=== PATIENT | male | born 1960 | race African-American/Black ===

== ENCOUNTER 2018-05-16 23:32 | Inpatient (IN) | payer OTHER ==
[~2018-05-16] VITALS: Ht 162.6 cm; Wt 57.3 kg
--- OUTSIDE RECORDS SUMMARY | 2018-05-16 23:38 | XMS REPORT | Summary of Care ---
Author Author [facility] Organization [facility] Address Unknown Phone Unavailable Encounter HQ Sara(FIN) [id number] Date(s): 11/01/15 - 11/06/15 [id number] [place] [address]- Discharge Disposition: Long Term Facility Attending Physician: Jerrell Frausto MD Admitting Physician: Jerrell Frausto MD Vital Signs 1 2 3 Most recent to oldest [Reference Range]: 162.56 cm (11/01/15 10:23 PM) Height 97.6 DegF (11/06/15 4:00 PM) 97.3 DegF (11/06/15 12:00 PM) 97.3 DegF (11/06/15 8:00 AM) Temperature Oral [96.4-99.1 DegF] 138/78 mmHg (11/06/15 10:00 PM) 178/94 mmHg *HI* (11/06/15 4:00 PM) 165/88 mmHg *HI* (11/06/15 12:00 PM) Blood Pressure [90-140/60-90 mmHg] 18 BRMIN (11/06/15 4:00 PM) 18 BRMIN (11/06/15 12:00 PM) 18 BRMIN (11/06/15 8:00 AM) Respiratory Rate [14-20 BRMIN] 81 bpm (11/06/15 10:00 PM) 80 bpm (11/06/15 4:00 PM) 69 bpm (11/06/15 12:00 PM) Peripheral Pulse Rate [60-100 bpm] 79.6 kg (11/01/15 10:23 PM) 77.273 kg (11/01/15 5:24 PM) Weight 30.12 m2 (11/01/15 10:23 PM) Body Mass Index Problem List Condition Effective Dates Status Health Status Informant Asthma(Confirmed) Resolved Bipolar(Confirmed) Active COPD(Confirmed) Active Diabetes Active mellitus(Confirmed) ESRD (end stage Active renal disease)(Confirmed) HTN - Active Hypertension(Confirm ed) Schizophrenia(Confir Active med) Allergies, Adverse Reactions, Alerts Substance Reaction Severity Status aspirin Active Medications albumin human 25% intravenous solution 12.5 gm, 50 mL, Route: IV, Drug form: INJ, PRN, Dosing Weight 79.6, kg, PRN Hypo tension, Start date: 11/06/15 16:18:00 CDT, Duration: 30 day, Stop date: 6 16:18:00 CDT, May give up to 2 doses during each dialysis Notes: LOT#: Mfg: WASTE: F/P - Red; E -Red (Same a s: Albuminar)"blood product derivative" Start Date: 11/06/15 Stop Date: 11/06/15 Status: Discontinued amLODIPine 10 mg, 2 tab, Route: PO, Drug form: TAB, Daily, Dosing Weight 79.6, kg, Start da te: 11/02/15 9:00:00 CDT, Duration: 30 day, Stop date: 12/01/15 9:00:00 CDT Notes: (Same as: Norvasc) Start Date: 11/02/15 Stop Date: 11/06/15 Status: Discontinued BD Normal Saline Flush 10 mL, Route: IVP, Drug Form: INJ, PRN, PRN Line Flush, Start date: 11/02/15 2:1 8:00 CDT, Duration: 30 day, Stop date: 12/02/15 2:17:00 CDT Notes: (Same as: BD Posiflush) Start Date: 11/02/15 Stop Date: 11/06/15 Status: Discontinued BD Normal Saline Flush 5 mL, Route: IVP, Drug Form: INJ, PRN, PRN Line Flush, Start date: 11/02/15 2:18 :00 CDT, Duration: 30 day, Stop date: 12/02/15 2:17:00 CDT Notes: (Same as: BD Posiflush) Start Date: 11/02/15 Stop Date: 11/06/15 Status: Discontinued carvedilol 3.125 mg, 1 tab, Route: PO, Drug form: TAB, Q12H, Dosing Weight 79.6, kg, Start date: 11/02/15 9:00:00 CDT, Duration: 30 day, Stop date: 12/01/15 21:00:00 CDT Notes: Give with food. (Same As: Coreg) Start Date: 11/02/15 Stop Date: 11/06/15 Status: Discontinued cloNIDine 0.1 mg oral tablet 0.1 mg, 1 tab, Route: PO, Drug form: TAB, TID, Dosing Weight 79.6, kg, Start adrian e: 11/02/15 9:00:00 CDT, Duration: 30 day, Stop date: 12/01/15 17:00:00 CDT Notes: (Same As: Catapres) Start Date: 11/02/15 Stop Date: 11/06/15 Status: Discontinued Colace 100 mg oral capsule 100 mg, 1 cap, Route: PO, Drug form: CAP, BID, Dosing Weight 79.6, kg, Start adrian e: 11/05/15 17:00:00 CDT, Duration: 30 day, Stop date: 12/05/15 9:00:00 CDT Notes: (Same as: Colace) (Do Not Crush) Start Date: 11/05/15 Stop Date: 11/06/15 Status: Discontinued Dextrose 50% Syringe 12.5 gm, 25 mL, Route: IVP, Drug Form: INJ, Dosing Weight 79.6, kg, PRN, PRN Blo od Glucose Results, Start date: 11/02/15 9:55:00 CDT, Duration: 30 day, Stop adrian e: 12/02/15 9:54:00 CDT Start Date: 11/02/15 Stop Date: 11/06/15 Status: Discontinued Dextrose 50% Syringe 25 gm, 50 mL, Route: IVP, Drug Form: INJ, Dosing Weight 79.6, kg, PRN, PRN Blood Glucose Results, Start date: 11/02/15 9:55:00 CDT, Duration: 30 day, Stop date: 12/02/15 9:54:00 CDT Start Date: 11/02/15 Stop Date: 11/06/15 Status: Discontinued Dilaudid 4 mg, 1 tab, Route: PO, Drug form: TAB, Q6H, Dosing Weight 79.6, kg, PRN Pain Sc ore 4-6, Start date: 11/02/15 1:56:00 CDT, Duration: 3 day, Stop date: 11/05/15 1:55:00 CDT Notes: (Same as: Dilaudid) Start Date: 11/02/15 Stop Date: 11/05/15 Status: Completed Dilaudid 4 mg oral tablet 4 mg=1 tab, PO, Q4H, PRN Pain Score 4-6, 0 Refill(s) Start Date: 11/01/15 Stop Date: 11/06/15 Status: Discontinued docusate 100 mg, 1 cap, Route: PO, Drug form: CAP, BID, Dosing Weight 77.273, kg, PRN Con stipation, Start date: 11/01/15 21:16:00 CDT, Duration: 30 day, Stop date: 11/30 21:15:00 CDT Notes: (Same as: Colace) (Do Not Crush) Start Date: 11/01/15 Stop Date: 11/06/15 Status: Discontinued glucagon 1 mg, Route: IM, Drug form: PDR/INJ, PRN, Dosing Weight 79.6, kg, PRN Blood Gluc ose Results, Start date: 11/02/15 9:55:00 CDT, Duration: 30 day, Stop date: 08/11 9:54:00 CDT Start Date: 11/02/15 Stop Date: 11/06/15 Status: Discontinued glyBURIDE 1.25 mg, 0.5 tab, Route: PO, Drug form: TAB, Daily, Dosing Weight 79.6, kg, Star t date: 11/04/15 8:00:00 CDT, Duration: 30 day, Stop date: 12/03/15 8:00:00 CDT Notes: (Same as: Micronase, Diabeta) Take with meals. Start Date: 11/04/15 Stop Date: 11/06/15 Status: Discontinued glyBURIDE 5 mg, 1 tab, Route: PO, Drug form: TAB, Daily, Dosing Weight 79.6, kg, Start adrian e: 11/02/15 9:00:00 CDT, Duration: 30 day, Stop date: 12/01/15 9:00:00 CDT Notes: (Same as: Micronase, Diabeta) Take with meals. Start Date: 11/02/15 Stop Date: 11/02/15 Status: Discontinued heparin 5,000 unit, 1 mL, Route: SUB-Q, Drug form: INJ, Q12H, Dosing Weight 79.6, kg, St art date: 11/03/15 9:00:00 CDT, Duration: 30 day, Stop date: 12/02/15 21:00:00 C DT Notes: porcine heparin Start Date: 11/03/15 Stop Date: 11/06/15 Status: Discontinued hydrALAZINE 50 mg oral tablet 50 mg, 1 tab, Route: PO, Drug form: TAB, Q6H, Dosing Weight 79.6, kg, Start date : 11/02/15 6:00:00 CDT, Duration: 30 day, Stop date: 12/02/15 0:00:00 CDT Notes: (Same as: Apresoline) May interfere w/enteral feedings Take With Food Start Date: 11/02/15 Stop Date: 11/06/15 Status: Discontinued insulin aspart 2 unit, 0.02 mL, Route: SUB-Q, Drug form: SOLN, TID-Before Meals, Dosing Weight 79.6, kg, PRN Blood Glucose Results, Start date: 11/02/15 9:55:00 CDT, Duration: 30 day, Stop date: 12/02/15 9:54:00 CDT Notes: Roll in palms of hands gently; Do not shake vigorously. (Same as: Tesfaye Mccray)"single patient use only"WASTE: F/P - Black; E - Municipal Trash Bin Stable f or 28 days at room temperature.Expires in days from Date Start Date: 11/02/15 Stop Date: 11/06/15 Status: Discontinued insulin aspart 3 unit, 0.03 mL, Route: SUB-Q, Drug form: SOLN, TID-Before Meals, Dosing Weight 79.6, kg, PRN Blood Glucose Results, Start date: 11/02/15 9:55:00 CDT, Duration: 30 day, Stop date: 12/02/15 9:54:00 CDT Notes: Roll in palms of hands gently; Do not shake vigorously. (Same as: NovoTHAO Mccray)"single patient use only"WASTE: F/P - Black; E - Municipal Trash Bin Stable f or 28 days at room temperature.Expires in days from Date Start Date: 11/02/15 Stop Date: 11/06/15 Status: Discontinued insulin aspart 1 unit, 0.01 mL, Route: SUB-Q, Drug form: SOLN, TID-Before Meals, Dosing Weight 79.6, kg, PRN Blood Glucose Results, Start date: 11/02/15 9:55:00 CDT, Duration: 30 day, Stop date: 12/02/15 9:54:00 CDT Notes: Roll in palms of hands gently; Do not shake vigorously. (Same as: NovoTHAO Mccray)"single patient use only"WASTE: F/P - Black; E - Municipal Trash Bin Stable f or 28 days at room temperature.Expires in days from Date Start Date: 11/02/15 Stop Date: 11/06/15 Status: Discontinued insulin aspart 5 unit, 0.05 mL, Route: SUB-Q, Drug form: SOLN, TID-Before Meals, Dosing Weight 79.6, kg, PRN Blood Glucose Results, Start date: 11/02/15 9:55:00 CDT, Duration: 30 day, Stop date: 12/02/15 9:54:00 CDT Notes: Roll in palms of hands gently; Do not shake vigorously. (Same as: NovoTHAO Mccray)"single patient use only"WASTE: F/P - Black; E - Municipal Trash Bin Stable f or 28 days at room temperature.Expires in days from Date Start Date: 11/02/15 Stop Date: 11/06/15 Status: Discontinued insulin aspart 4 unit, 0.04 mL, Route: SUB-Q, Drug form: SOLN, TID-Before Meals, Dosing Weight 79.6, kg, PRN Blood Glucose Results, Start date: 11/02/15 9:55:00 CDT, Duration: 30 day, Stop date: 12/02/15 9:54:00 CDT Notes: Roll in palms of hands gently; Do not shake vigorously. (Same as: Tesfaye Mccray)"single patient use only"WASTE: F/P - Black; E - Municipal Trash Bin Stable f or 28 days at room temperature.Expires in days from Date Start Date: 11/02/15 Stop Date: 11/06/15 Status: Discontinued isosorbide mononitrate 120 mg, 2 tab, Route: PO, Drug form: ERTAB, QAM, Dosing Weight 79.6, kg, Start d ate: 11/02/15 9:00:00 CDT, Duration: 30 day, Stop date: 12/01/15 9:00:00 CDT Notes: (Same as:Imdur)"Do Not Crush" Take on empty stomach/ full glass of water . Do not crush Start Date: 11/02/15 Stop Date: 11/06/15 Status: Discontinued Kayexalate 30 gm, 120 mL, Route: PO, Drug form: SUSP, ONCE, Dosing Weight 77.273, kg, Start date: 11/01/15 21:18:00 CDT, Stop date: 11/01/15 21:18:00 CDT Notes: (sodium polystyrene sulfonate 15 gm/60 ml MEEK) Shake well before use. (Same as: Kayexalate, SPS) Start Date: 11/01/15 Stop Date: 11/01/15 Status: Completed lisinopril 40 mg, 2 tab, Route: PO, Drug form: TAB, Daily, Dosing Weight 79.6, kg, Start da te: 11/02/15 9:00:00 CDT, Duration: 30 day, Stop date: 12/01/15 9:00:00 CDT Notes: (Same as: Prinivil, Zestril) Start Date: 11/02/15 Stop Date: 11/06/15 Status: Discontinued melatonin 3 mg oral tablet 3 mg, 1 tab, Route: PO, Drug Form: TAB, Dosing Weight 79.6, kg, Bedtime, Start d ate: 11/02/15 21:00:00 CDT, Duration: 30 day, Stop date: 12/01/15 21:00:00 CDT Notes: (Same as: Melatonin) Start Date: 11/02/15 Stop Date: 11/06/15 Status: Discontinued morphine Sulfate 2 mg, 1 mL, Route: IVP, Drug form: INJ, Q4H, Dosing Weight 77.273, kg, PRN Pain Score 7-10, Start date: 11/01/15 21:16:00 CDT, Duration: 30 day, Stop date: 07/12 21:15:00 CDT Notes: (Same as:MORPhine Sulfate) Start Date: 11/01/15 Stop Date: 11/06/15 Status: Discontinued nitroglycerin 0.4 mg sublingual tablet 0.4 mg, 1 tab, Route: SL, Drug form: TAB, Q5Min, Dosing Weight 79.6, kg, PRN Amee st Pain, Start date: 11/02/15 1:55:00 CDT, Duration: 30 day, Stop date: 12/02/15 1:54:00 CDT Notes: (Same as:Nitroquick, Nitrostat)"Do Not Crush" Sublingual tablet Start Date: 11/02/15 Stop Date: 11/06/15 Status: Discontinued ondansetron 4 mg, 2 mL, Route: IVP, Drug form: INJ, Q6H, Dosing Weight 77.273, kg, PRN Nause a & Vomiting, Start date: 11/01/15 21:16:00 CDT, Duration: 30 day, Stop date: 12/01/15 21:15:00 CDT Notes: (Same as: Savita) MEDICATION WASTE Product Size: 4 mgProduct Was yecenia: ___ mg Start Date: 11/01/15 Stop Date: 11/06/15 Status: Discontinued Pepcid 20 mg oral tablet 20 mg, 1 tab, Route: PO, Drug form: TAB, Daily, Dosing Weight 79.6, kg, Start da te: 11/02/15 9:00:00 CDT, Duration: 30 day, Stop date: 12/01/15 9:00:00 CDT Notes: (Same as: Pepcid) Start Date: 11/02/15 Stop Date: 11/06/15 Status: Discontinued Procrit (ESRD) 10,000 unit, 1 mL, Route: SUB-Q, Drug form: INJ, Q-M-W-F, Dosing Weight 79.6, kg , Start date: 11/04/15 17:00:00 CDT, Duration: 30 day, Stop date: 12/02/15 17:00 :00 CDT Notes: MEDICATION WASTE Product Size: [id number] unitProduct Wasted: ___ uni t Start Date: 11/04/15 Stop Date: 11/06/15 Status: Discontinued Sodium Chloride 0.9% IV 25 mL, Route: IVP, Start date: 11/02/15 2:18:00 CDT, Duration: 30 day, Stop date : 12/02/15 2:17:00 CDT, PRN Line Flush Start Date: 11/02/15 Stop Date: 11/06/15 Status: Discontinued Results ELECTROLYTES 1 2 3 Most recent to oldest [Reference Range]: 138 mEq/L (11/06/15 3:37 AM) 139 mEq/L (11/05/15 4:41 AM) 139 mEq/L (11/04/15 5:29 AM) Sodium Lvl [135-145 mEq/L] 4.3 mEq/L (11/06/15 3:37 AM) 4.1 mEq/L (11/05/15 4:41 AM) 4.0 mEq/L (11/04/15 5:29 AM) Potassium Lvl [3.5-5.1 mEq/L] 100 mEq/L (11/06/15 3:37 AM) 101 mEq/L (11/05/15 4:41 AM) 102 mEq/L (11/04/15 5:29 AM) Chloride Lvl [95-109 mEq/L] 29 mEq/L (11/06/15 3:37 AM) 30 mEq/L (11/05/15 4:41 AM) 30 mEq/L (11/04/15 5:29 AM) CO2 [24-32 mEq/L] 13.3 mEq/L (11/06/15 3:37 AM) 12.1 mEq/L (11/05/15 4:41 AM) 11.0 mEq/L (11/04/15 5:29 AM) AGAP [10.0-20.0 mEq/L] CHEM PANEL 1 2 3 Most recent to oldest [Reference Range]: 2.85 mg/dL *HI* (11/06/15 3:37 AM) 1.89 mg/dL *HI* (11/05/15 4:41 AM) 2.21 mg/dL *HI* (11/04/15 5:29 AM) Creatinine Lvl [0.50-1.40 mg/dL] 27 mL/min/1.73m2 1 *NA* (11/06/15 3:37 AM) 45 mL/min/1.73m2 2 *NA* (11/05/15 4:41 AM) 37 mL/min/1.73m2 3 *NA* (11/04/15 5:29 AM) eGFR 23 mg/dL *HI* (11/06/15 3:37 AM) 12 mg/dL (11/05/15 4:41 AM) 19 mg/dL (11/04/15 5:29 AM) BUN [7-22 mg/dL] 13 (11/01/15 6:27 PM) B/C Ratio [6-25] 209 mg/dL *HI* (11/06/15 3:37 AM) 142 mg/dL *HI* (11/05/15 4:41 AM) 138 mg/dL *HI* (11/04/15 5:29 AM) Glucose Lvl [70-99 mg/dL] 7.7 g/dL (11/01/15 6:27 PM) Total Protein [6.4-8.4 g/dL] 2.6 g/dL *LOW* (11/04/15 5:29 AM) 2.6 g/dL *LOW* (11/01/15 6:27 PM) Albumin Lvl [3.5-5.0 g/dL] 5.1 g/dL *HI* (11/01/15 6:27 PM) Globulin [2.7-4.2 g/dL] 0.5 *LOW* (11/01/15 6:27 PM) A/G Ratio [0.7-1.6] 8.6 mg/dL (11/06/15 3:37 AM) 8.1 mg/dL *LOW* (11/05/15 4:41 AM) 8.2 mg/dL *LOW* (11/04/15 5:29 AM) Calcium Lvl [8.5-10.5 mg/dL] 3.6 mg/dL (11/04/15 5:29 AM) 5.6 mg/dL *HI* (11/02/15 4:49 AM) Phosphorus [2.5-4.5 mg/dL] 1.8 mg/dL (11/02/15 4:49 AM) Magnesium Lvl [1.8-2.4 mg/dL] 35 unit/L (11/01/15 6:27 PM) ALT [0-65 unit/L] 30 unit/L (11/01/15 6:27 PM) AST [0-37 unit/L] 128 unit/L (11/01/15 6:27 PM) Alk Phos [39-136 unit/L] 0.5 mg/dL (11/01/15 6:27 PM) Bili Total [0.2-1.3 mg/dL] 1Result Comment: The eGFR is calculated using the CKD-EPI formula. In most young, healthy individuals the eGFR will be >90 mL/min/1.73m2. The eGFR declines with age. An eGFR of 60-89 may be normal in some populations, particularly the elderly, for whom the CKD-EPI formula has not been extensively validated. Use of the eGFR is not recommended in the following populations: Individuals with unstable creatinine concentrations, including patients and those with serious co-morbid conditions. Patients with extremes in muscle mass or diet. The data above are obtained from the National Kidney Disease Education Program ( NKDEP) which additionally recommends that when the eGFR is used in patients with extremes of body mass index for purposes of drug dosing, the eGFR should be mul tiplied by the estimated BMI. 2Result Comment: The eGFR is calculated using the CKD-EPI formula. In most young, healthy individuals the eGFR will be >90 mL/min/1.73m2. The eGFR declines with age. An eGFR of 60-89 may be normal in some populations, particularly the elderly, for whom the CKD-EPI formula has not been extensively validated. Use of the eGFR is not recommended in the following populations: Individuals with unstable creatinine concentrations, including patients and those with serious co-morbid conditions. Patients with extremes in muscle mass or diet. The data above are obtained from the National Kidney Disease Education Program ( NKDEP) which additionally recommends that when the eGFR is used in patients with extremes of body mass index for purposes of drug dosing, the eGFR should be mul tiplied by the estimated BMI. 3Result Comment: The eGFR is calculated using the CKD-EPI formula. In most young, healthy individuals the eGFR will be >90 mL/min/1.73m2. The eGFR declines with age. An eGFR of 60-89 may be normal in some populations, particularly the elderly, for whom the CKD-EPI formula has not been extensively validated. Use of the eGFR is not recommended in the following populations: Individuals with unstable creatinine concentrations, including patients and those with serious co-morbid conditions. Patients with extremes in muscle mass or diet. The data above are obtained from the National Kidney Disease Education Program ( NKDEP) which additionally recommends that when the eGFR is used in patients with extremes of body mass index for purposes of drug dosing, the eGFR should be mul tiplied by the estimated BMI. CARDIAC ENZYMES 1 2 3 Most recent to oldest [Reference Range]: 98 unit/L (11/01/15 6:27 PM) Total CK [12-191 unit/L] 8.1 ng/mL *HI* (11/01/15 6:27 PM) CK MB [0.5-3.6 ng/mL] 8.3 *HI* (11/01/15 6:27 PM) CK MB Index [0.0-2.5] 0.05 ng/mL (11/01/15 6:27 PM) Troponin-I [0.00-0.40 ng/mL] URINE AND STOOL 1 2 3 Most recent to oldest [Reference Range]: Slight *ABN* (11/05/15 5:36 PM) UA Turbidity [Clear] Dark Yellow *NA* (11/05/15 5:36 PM) UA Color [Yellow] 7.0 (11/05/15 5:36 PM) UA pH [5.0-8.0] 1.020 (11/05/15 5:36 PM) UA Spec Grav [<=1.030] 150 mg/dL *NA* (11/05/15 5:36 PM) UA Glucose Negative (11/05/15 5:36 PM) UA Blood [Negative] Negative *NA* (11/05/15 5:36 PM) UA Ketones >=300 mg/dL *ABN* (11/05/15 5:36 PM) UA Protein [Negative mg/dL] <=1.0 mg/dL *NA* (11/05/15 5:36 PM) UA Urobilinogen [0.1-1.0 mg/dL] Negative *NA* (11/05/15 5:36 PM) UA Bili [Negative] Negative (11/05/15 5:36 PM) UA Leuk Est [Negative] Negative (11/05/15 5:36 PM) UA Nitrite [Negative] 5 /HPF (11/05/15 5:36 PM) UA WBC [0-5 /HPF] 2 /HPF (11/05/15 5:36 PM) UA RBC [0-2 /HPF] Occasional /HPF *NA* (11/05/15 5:36 PM) UA Bacteria [None Seen /HPF] Few /LPF *NA* (11/05/15 5:36 PM) UA Sq Epi [Few /LPF] 1 /LPF (11/05/15 5:36 PM) UA Hyal Cast [0-2 /LPF] Few /LPF *NA* (11/05/15 5:36 PM) UA Mucus [None Seen /LPF] IMMUNOLOGY 1 2 3 Most recent to oldest [Reference Range]: Negative *NA* (11/02/15 4:48 AM) Hep Bs Ag [Negative] HEMATOLOGY 1 2 3 Most recent to oldest [Reference Range]: 5.7 K/CMM (11/06/15 3:37 AM) 5.8 K/CMM (11/05/15 4:41 AM) 6.7 K/CMM (11/04/15 5:29 AM) WBC [3.7-10.4 K/CMM] 3.26 M/CMM *LOW* (11/06/15 3:37 AM) 3.22 M/CMM *LOW* (11/05/15 4:41 AM) 3.31 M/CMM *LOW* (11/04/15 5:29 AM) RBC [4.70-6.10 M/CMM] 8.6 g/dL *LOW* (11/06/15 3:37 AM) 8.5 g/dL *LOW* (11/05/15 4:41 AM) 8.9 g/dL *LOW* (11/04/15 5:29 AM) Hgb [14.0-18.0 g/dL] 26.9 % *LOW* (11/06/15 3:37 AM) 26.4 % *LOW* (11/05/15 4:41 AM) 27.4 % *LOW* (11/04/15 5:29 AM) Hct [42.0-54.0 %] 82.6 fL (11/06/15 3:37 AM) 82.1 fL (11/05/15 4:41 AM) 82.6 fL (11/04/15 5:29 AM) MCV [80.0-94.0 fL] 26.5 pg *LOW* (11/06/15 3:37 AM) 26.4 pg *LOW* (11/05/15 4:41 AM) 26.8 pg *LOW* (11/04/15 5:29 AM) MCH [27.0-31.0 pg] 32.0 g/dL (11/06/15 3:37 AM) 32.2 g/dL (11/05/15 4:41 AM) 32.5 g/dL (11/04/15 5:29 AM) MCHC [32.0-36.0 g/dL] 16.0 % *HI* (11/06/15 3:37 AM) 16.3 % *HI* (11/05/15 4:41 AM) 16.2 % *HI* (11/04/15 5:29 AM) RDW [11.5-14.5 %] 112 K/CMM *LOW* (11/06/15 3:37 AM) 108 K/CMM *LOW* (11/05/15 4:41 AM) 109 K/CMM *LOW* (11/04/15 5:29 AM) Platelet [133-450 K/CMM] 9.1 fL (11/06/15 3:37 AM) 9.0 fL (11/05/15 4:41 AM) 9.3 fL (11/04/15 5:29 AM) MPV [7.4-10.4 fL] 49.7 % (11/06/15 3:37 AM) 52.1 % (11/05/15 4:41 AM) 57.6 % (11/04/15 5:29 AM) Segs [45.0-75.0 %] 30.1 % (11/06/15 3:37 AM) 29.7 % (11/05/15 4:41 AM) 24.0 % (11/04/15 5:29 AM) Lymphocytes [20.0-40.0 %] 11.3 % (11/06/15 3:37 AM) 9.8 % (11/05/15 4:41 AM) 11.7 % (11/04/15 5:29 AM) Monocytes [2.0-12.0 %] 8.8 % *HI* (11/06/15 3:37 AM) 7.7 % *HI* (11/05/15 4:41 AM) 6.1 % *HI* (11/04/15 5:29 AM) Eosinophils [0.0-4.0 %] 0.1 % (11/06/15 3:37 AM) 0.7 % (11/05/15 4:41 AM) 0.6 % (11/04/15 5:29 AM) Basophils [0.0-1.0 %] 2.8 K/CMM (11/06/15 3:37 AM) 3.0 K/CMM (11/05/15 4:41 AM) 3.8 K/CMM (11/04/15 5:29 AM) Segs-Bands # [1.5-8.1 K/CMM] 1.7 K/CMM (11/06/15 3:37 AM) 1.7 K/CMM (11/05/15 4:41 AM) 1.6 K/CMM (11/04/15 5:29 AM) Lymphocytes # [1.0-5.5 K/CMM] 0.6 K/CMM (11/06/15 3:37 AM) 0.6 K/CMM (11/05/15 4:41 AM) 0.8 K/CMM (11/04/15 5:29 AM) Monocytes # [0.0-0.8 K/CMM] 0.5 K/CMM (11/06/15 3:37 AM) 0.4 K/CMM (11/05/15 4:41 AM) 0.4 K/CMM (11/04/15 5:29 AM) Eosinophils # [0.0-0.5 K/CMM] 0.0 K/CMM (11/04/15 5:29 AM) 0.0 K/CMM (11/02/15 4:49 AM) 0.1 K/CMM (11/01/15 6:27 PM) Basophils # [0.0-0.2 K/CMM] 16.1 seconds *HI* (11/02/15 4:49 AM) PT [12.0-14.7 seconds] 1.26 *HI* (11/02/15 4:49 AM) INR [0.85-1.17] 36.7 seconds *HI* (11/02/15 4:49 AM) PTT [22.9-35.8 seconds] Immunizations Given and Recorded Vaccine Date Status Refusal Reason influenza virus vaccine, inactivated 05/15/15 Given influenza virus vaccine, inactivated 05/21/13 Given influenza virus vaccine, inactivated 04/12/12 Given pneumococcal 23-valent vaccine 05/15/15 Given pneumococcal 23-valent vaccine 04/12/12 Given Procedures Procedure Date Related Diagnosis Body Site Hemodialysis Social History Social History Type Response Substance Abuse Use: Current. Type: Amphetamines. Recreational Drug Route: Inhaled. Amount: marijuana. Frequency: 1-2 times per week. Previous Treatment: None. IV drug use: No.1 Sexual Sexually active: No. Exercise Exercise frequency: 5-6 times/week. Self assessment: Poor condition. 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 Alcohol Past, Type Beer. Frequency: 1-2 times per month. Last use: 2012. Alcohol use interferes with work or home: No. Drinks more than intended: No. Others hurt by drinking: No. Ready to change: No. Household alcohol concerns: No. Smoking Status Former smoker; Type: Cigarettes; Tobacco use per day: 1; Number of years: 0.5; Exposure to Tobacco Smoke None; Other Tobacco Frequency 30 years ago; Cigarette Smoking Last 365 Days No; Reg Smoking Cessation Counseling Yes 1Pt. states he uses cocaine approx 1 month ago 213 hours Assessment and Plan Extracted from: Title: Progress Note * Author: Jerrell Frausto MD Date: 11/06/15 Impression and Plan A 54 yr old M with HTN,DM,ESRD on HD, non compliance and missing dialysis sessions is with fluid overload 1. Fluid overload: sec to missing dialysis, improved volume status, HD planned today. discussed with , has solved the issue with contract between [place] and [facility] regular snag grinder is Dr Martinez, will d/c to [place] after HD today 2. Hyperkalemia: resolved with HD 3. HTN: improved control 4. DM: fairly controlled, low dose glyburide 5. Scrotal and penils swelling: likley from fluid overload and dependent edema, scrotal US: negative except skin edema, UA is negative, FU with urology as outpatient DVT Px d/c to [place] after HD today Extracted from: Title: General Admission H&P Author: Clinton Loera MD Date: 11/01/15 Impression and Plan ESRD Fluid o/l Hyper K Anemia DM2 HTN --tele --[facility] called for ESRD/HD --Resume home meds --Insulin SS --Kayexalate --DVT/GI ppx
--- OUTSIDE RECORDS SUMMARY | 2018-05-16 23:38 | XMS REPORT | Summary of Care ---
Author Author [facility] Organization [facility] Address Unknown Phone Unavailable Encounter URIEL Ruiz(WILDER) [id number] Date(s): 05/13/15 - 05/20/15 [facility] [address] [employer] provided by [facility] [place] [address]- Discharge Disposition: Home Attending Physician: Jaymie Vlilar MD Admitting Physician: Arabella Camacho MD Vital Signs 1 2 3 Most recent to oldest [Reference Range]: 162.56 cm (05/13/15 8:46 PM) Height 78.8 kg (05/19/15 5:07 AM) 61.2 kg (05/18/15 4:31 AM) 60.7 kg (05/17/15 5:43 AM) Current Weight 97.4 DegF (05/20/15 3:43 PM) 97.5 DegF (05/20/15 11:32 AM) 97.5 DegF (05/20/15 7:26 AM) Temperature Oral [96.4-99.1 DegF] 154/89 mmHg *HI* (05/20/15 5:20 PM) 157/85 mmHg *HI* (05/20/15 4:00 PM) 152/87 mmHg *HI* (05/20/15 3:43 PM) Blood Pressure [90-140/60-90 mmHg] 40 BRMIN *HI* (05/20/15 5:20 PM) 18 BRMIN (05/20/15 4:00 PM) 16 BRMIN (05/20/15 3:43 PM) Respiratory Rate [14-20 BRMIN] 78 bpm (05/20/15 7:46 PM) 99 bpm (05/13/15 10:49 PM) 98 bpm (05/13/15 8:46 PM) Peripheral Pulse Rate [60-100 bpm] 80.3 kg (05/14/15 6:19 PM) 77.727 kg (05/13/15 8:46 PM) Weight 29.41 m2 (05/13/15 8:46 PM) Body Mass Index Problem List Condition Effective Dates Status Health Status Informant Asthma(Confirmed) Resolved Bipolar(Confirmed) Active Diabetes Active mellitus(Confirmed) HTN - Active Hypertension(Confirm ed) Schizophrenia(Confir Active med) Allergies, Adverse Reactions, Alerts Substance Reaction Severity Status aspirin Active Medications albumin human 25% intravenous solution 25 gm, 100 mL, Route: IV, Drug form: INJ, ONCE, Dosing Weight 77.727, kg, Start date: 05/13/15 23:26:00, Stop date: 05/13/15 23:26:00 Notes: Lot #: Mfg: (Same as: Plasbumin-25)"blood pr oduct derivative"WASTE: F/P - Red; E -Red MEDICATION WASTE Product Size: 25 gmProduct Wasted: ___ gm Start Date: 05/13/15 Stop Date: 05/14/15 Status: Completed amLODIPine 10 mg, 1 tab, Route: PO, Drug form: TAB, ONCE, Dosing Weight 80.3, kg, Start adrian e: 05/14/15 21:25:00, Stop date: 05/14/15 21:25:00 Notes: (Same as: Griffin) Start Date: 05/14/15 Stop Date: 05/14/15 Status: Completed amLODIPine 10 mg, 1 tab, Route: PO, Drug form: TAB, Daily, Dosing Weight 77.727, kg, Start date: 05/15/15 9:00:00, Duration: 30 day, Stop date: 06/13/15 9:00:00 Notes: (Same as: Griffin) Start Date: 05/15/15 Stop Date: 05/20/15 Status: Discontinued amLODIPine 10 mg, 1 tab, Route: PO, Drug form: TAB, ONCE, Dosing Weight 77.727, kg, Start d ate: 05/14/15 3:34:00, Stop date: 05/14/15 3:34:00 Notes: (Same as: Norvasc) Start Date: 05/14/15 Stop Date: 05/14/15 Status: Completed amLODIPine 5 mg, Route: PO, Drug form: TAB, ONCE, Dosing Weight 77.727, kg, Start date: 3:34:00, Stop date: 05/14/15 3:34:00 Start Date: 05/14/15 Stop Date: 05/14/15 Status: Discontinued amLODIPine 10 mg oral tablet 10 mg=1 tab, PO, Daily, # 30 tab, 2 Refill(s) Start Date: 05/20/15 Status: Ordered aspirin 81 mg, 1 tab, Route: PO, Drug form: CHEWTAB, Daily, Dosing Weight 77.727, kg, St art date: 05/14/15 9:00:00, Duration: 30 day, Stop date: 06/12/15 9:00:00 Notes: Take with food. Start Date: 05/14/15 Stop Date: 05/20/15 Status: Discontinued bacitracin-polymyxin B topical 1 appl, Route: TOP, Q12H, Drug form: OINT, Start date: 05/20/15 13:00:00, Durati on: 30 day, Stop date: 06/19/15 9:00:00 Notes: (Same As: Polysporin) Start Date: 05/20/15 Stop Date: 05/20/15 Status: Discontinued Benadryl 25 mg, 1 cap, Route: PO, Drug form: CAP, TID, Dosing Weight 80.3, kg, PRN as nee ded for itching, Start date: 05/15/15 22:33:00, Duration: 30 day, Stop date: 22:32:00 Notes: (Same as: Benadryl) Start Date: 05/15/15 Stop Date: 05/20/15 Status: Discontinued bumetanide 1 mg oral tablet 1 mg=1 tab, PO, Q8H, # 90 tab, 2 Refill(s) Start Date: 05/20/15 Status: Ordered Bumex 1 mg, 1 tab, Route: PO, Drug form: TAB, Q8H, Dosing Weight 80.3, kg, Start date: 05/17/15 16:00:00, Duration: 30 day, Stop date: 06/16/15 8:00:00 Notes: (Same As: Bumex) Start Date: 05/17/15 Stop Date: 05/20/15 Status: Discontinued Bumex 1 mg, 4 mL, Route: IVP, Drug form: INJ, Daily, Dosing Weight 80.3, kg, Start adrian e: 05/16/15 9:00:00, Stop date: 06/14/15 8:00:00 Notes: (Same As: Bumex) Start Date: 05/16/15 Stop Date: 05/16/15 Status: Discontinued Bumex 1 mg, 4 mL, Route: IVP, Drug form: INJ, Q8H, Dosing Weight 80.3, kg, Start date: 05/16/15 16:00:00, Stop date: 06/15/15 8:00:00 Notes: (Same As: Bumex) Start Date: 05/16/15 Stop Date: 05/17/15 Status: Discontinued Calmoseptine topical ointment 1 appl, Route: TOP, PRN, Drug form: OINT, PRN Diaper Rash, Start date: 05/15/15 22:32:00, Duration: 30 day, Stop date: 06/14/15 23:31:00, Dosing Notes: (Same as: Calmoseptine) Start Date: 05/15/15 Stop Date: 05/20/15 Status: Discontinued carvedilol 12.5 mg oral tablet 12.5 mg=1 tab, PO, Q12H, # 60 tab, 2 Refill(s) Start Date: 05/20/15 Status: Ordered cloNIDine 0.2 mg, 1 tab, Route: PO, Drug form: TAB, BID, Dosing Weight 80.3, kg, Start adrian e: 05/14/15 23:01:00, Duration: 30 day, Stop date: 06/13/15 17:00:00 Notes: (Same As: Catapres) Start Date: 05/14/15 Stop Date: 05/15/15 Status: Discontinued cloNIDine 0.1 mg oral tablet 0.1 mg, 1 tab, Route: PO, Drug form: TAB, Q12H, Dosing Weight 80.3, kg, Start da te: 05/18/15 21:00:00, Duration: 30 day, Stop date: 06/17/15 9:00:00 Notes: (Same As: Catapres) Start Date: 05/18/15 Stop Date: 05/19/15 Status: Discontinued cloNIDine 0.1 mg oral tablet 0.1 mg, 1 tab, Route: PO, Drug form: TAB, Q12H, Dosing Weight 80.3, kg, Start da te: 05/17/15 9:00:00, Stop date: 06/15/15 21:00:00 Notes: (Same As: Catapres) Start Date: 05/17/15 Stop Date: 05/18/15 Status: Discontinued clotrimazole topical 1% cream 1 appl, Route: TOP, BID, Drug form: CRM, Start date: 05/14/15 9:00:00, Duration: 30 day, Stop date: 06/12/15 17:00:00 Notes: For external use only.(Same As: Lotrimin AF, Mycelex) Start Date: 05/14/15 Stop Date: 05/20/15 Status: Discontinued Colace 50 mg oral capsule 50 mg, 1 cap, Route: PO, Drug form: CAP, Bedtime, Dosing Weight 80.3, kg, Start date: 05/15/15 21:00:00, Duration: 30 day, Stop date: 06/13/15 21:00:00 Notes: (Same as: Colace) (Do Not Crush) Start Date: 05/15/15 Stop Date: 05/20/15 Status: Discontinued Coreg 12.5 mg, 1 tab, Route: PO, Drug form: TAB, Q12H, Dosing Weight 80.3, kg, Start d ate: 05/16/15 21:00:00, Duration: 30 day, Stop date: 06/15/15 9:00:00 Notes: Give with food. (Same As: Coreg) Start Date: 05/16/15 Stop Date: 05/20/15 Status: Discontinued Coreg 6.25 mg, 1 tab, Route: PO, Drug form: TAB, Q12H, Dosing Weight 80.3, kg, Start d ate: 05/15/15 13:00:00, Duration: 30 day, Stop date: 06/14/15 9:00:00 Notes: Give with food. (Same As: Coreg) Start Date: 05/15/15 Stop Date: 05/16/15 Status: Discontinued Dextrose 50% Syringe 25 gm, 50 mL, Route: IVP, Drug Form: INJ, Dosing Weight 77.727, kg, PRN, PRN Blo od Glucose Results, Start date: 05/14/15 1:35:00, Duration: 30 day, Stop date: 0 06/13/15 2:34:00 Start Date: 05/14/15 Stop Date: 05/20/15 Status: Discontinued Dextrose 50% Syringe 12.5 gm, 25 mL, Route: IVP, Drug Form: INJ, Dosing Weight 77.727, kg, PRN, PRN B lood Glucose Results, Start date: 05/14/15 1:35:00, Duration: 30 day, Stop date: 06/13/15 2:34:00 Start Date: 05/14/15 Stop Date: 05/20/15 Status: Discontinued Dilaudid 0.5 mg, 0.25 mL, Route: IVP, Drug form: INJ, ONCE, Dosing Weight 80.3, kg, Prior ity: STAT, Start date: 05/20/15 12:07:00, Stop date: 05/20/15 12:07:00 Notes: Same as: Dilaudid Start Date: 05/20/15 Stop Date: 05/20/15 Status: Completed Dilaudid 0.5 mg, Route: IVP, ONCE, Dosing Weight 77.727, kg, Priority: STAT, Start date: 05/14/15 3:19:00, Stop date: 05/14/15 3:19:00 Start Date: 05/14/15 Stop Date: 05/14/15 Status: Completed Dilaudid 1 mg, Route: IVP, ONCE, Dosing Weight 77.727, kg, Priority: STAT, Start date: 6:22:00, Stop date: 05/14/15 6:22:00 Start Date: 05/14/15 Stop Date: 05/14/15 Status: Completed docusate-senna 50 mg-8.6 mg oral tablet 1 tab, Route: PO, Drug Form: TAB, Dosing Weight 80.3, kg, ONCE, Start date: 04/29 10/11 16:29:00, Stop date: 05/15/15 16:29:00 Notes: (Same as Senokot-S) Equiv. to Gita-Colace. Start Date: 05/15/15 Stop Date: 05/15/15 Status: Completed DuoNeb inhalation solution 3 ml, Route: NEB, Drug Form: SOLN, Dosing Weight 80.3, kg, PRN, PRN Respiratory Protocol, Start date: 05/15/15 3:39:00, Duration: 30 day, Stop date: 06/14/15 4: 38:00 Notes: (Same as: Duoneb) Start Date: 05/15/15 Stop Date: 05/20/15 Status: Discontinued esomeprazole 20 mg, Route: PO, Drug form: ECCAP, Daily, Dosing Weight 77.727, kg, Start date: 05/14/15 9:00:00, Duration: 30 day, Stop date: 06/12/15 9:00:00 Start Date: 05/14/15 Stop Date: 05/14/15 Status: Deleted Flomax 0.4 mg oral capsule 0.4 mg=1 cap, PO, Daily Start Date: 05/17/15 Status: Ordered glucagon 1 mg, Route: IM, Drug form: PDR/INJ, PRN, Dosing Weight 77.727, kg, PRN Blood Gl ucose Results, Start date: 05/14/15 1:35:00, Duration: 30 day, Stop date: 2:34:00 Start Date: 05/14/15 Stop Date: 05/20/15 Status: Discontinued heparin 5,000 unit, 1 mL, Route: SUB-Q, Drug form: INJ, Q8H, Dosing Weight 77.727, kg, S tart date: 05/14/15 8:00:00, Duration: 30 day, Stop date: 06/13/15 0:00:00 Notes: porcine heparin Start Date: 05/14/15 Stop Date: 05/20/15 Status: Discontinued Humulin 70/30 See Instructions, inject 15 units SUB-Q QAM and inject 10 unit SUB-Q QPM Start Date: 05/17/15 Status: Ordered hydrALAZINE 10 mg, 0.5 mL, Route: IV, Drug form: INJ, ONCE, Dosing Weight 80.3, kg, Start da te: 05/16/15 23:12:00, Stop date: 05/16/15 23:12:00 Notes: (Same as: Apresoline)Push over 5 minutes Start Date: 05/16/15 Stop Date: 05/16/15 Status: Completed hydrALAZINE 20 mg, 1 mL, Route: IVP, Drug form: INJ, Q4H, Dosing Weight 77.727, kg, PRN Hype rtension, Start date: 05/15/15 16:33:00, Duration: 30 day, Stop date: 06/14/15 1 6:32:00 Notes: (Same as: Apresoline)Push over 5 minutes Start Date: 05/15/15 Stop Date: 05/20/15 Status: Discontinued hydrALAZINE 10 mg, 0.5 mL, Route: IVP, Drug form: INJ, Q4H, Dosing Weight 77.727, kg, PRN Hy pertension, Start date: 05/14/15 16:00:00, Stop date: 06/13/15 12:00:00 Notes: (Same as: Apresoline)Push over 5 minutes Start Date: 05/14/15 Stop Date: 05/15/15 Status: Discontinued hydrALAZINE 10 mg, Route: IV, ONCE, Dosing Weight 77.727, kg, Start date: 05/14/15 5:47:00, Stop date: 05/14/15 5:47:00 Start Date: 05/14/15 Stop Date: 05/14/15 Status: Completed hydrALAZINE 10 mg oral tablet 10 mg, 1 tab, Route: PO, Drug form: TAB, Q6H, Dosing Weight 80.3, kg, Start date : 05/18/15 12:00:00, Duration: 30 day, Stop date: 06/17/15 6:00:00 Notes: (Same as: Apresoline) May interfere w/enteral feedings.Take With Food Start Date: 05/18/15 Stop Date: 05/19/15 Status: Discontinued hydrALAZINE 25 mg oral tablet 50 mg=2 tab, PO, TID, # 90 tab, 2 Refill(s) Start Date: 05/20/15 Status: Ordered hydrALAZINE 25 mg oral tablet 50 mg, 2 tab, Route: PO, Drug form: TAB, Q6H, Dosing Weight 80.3, kg, Start date : 05/19/15 12:00:00, Stop date: 06/18/15 6:00:00 Notes: (Same as: Apresoline) May interfere w/enteral feedings Take With Food. Start Date: 05/19/15 Stop Date: 05/20/15 Status: Discontinued Imdur 60 mg, 1 tab, Route: PO, Drug form: ERTAB, QAM, Dosing Weight 80.3, kg, Start da te: 05/16/15 12:00:00, Stop date: 06/15/15 9:00:00 Notes: (Same as:Imdur)"Do Not Crush" Take on empty stomach/ full glass of water . Do not crush Start Date: 05/16/15 Stop Date: 05/20/15 Status: Discontinued Imdur 30 mg, 1 tab, Route: PO, Drug form: ERTAB, ONCE, Dosing Weight 80.3, kg, Start d ate: 05/17/15 14:49:00, Stop date: 05/17/15 14:49:00 Notes: (Same as:Imdur)"Do Not Crush" Take on empty stomach/ full glass of water . Do not crush Start Date: 05/17/15 Stop Date: 05/17/15 Status: Completed Imdur 120 mg, 1 tab, Route: PO, Drug form: ERTAB, QAM, Dosing Weight 80.3, kg, Start d ate: 05/21/15 9:00:00, Duration: 30 day, Stop date: 06/19/15 9:00:00 Notes: (Same as:Imdur)"Do Not Crush" Take on empty stomach/ full glass of water . Do not crush Start Date: 05/21/15 Stop Date: 05/20/15 Status: Canceled influenza virus vaccine, inactivated 0.5 mL, Route: IM, Drug Form: SUSP, Daily, Start date: 05/15/15 9:00:00, Duratio n: 1 doses or times, Stop date: 05/15/15 9:00:00 Notes: (Same as: Fluzone Quadrivalent)For 3 years of age and older (0.5 mL IM)Sh charisse well before use Start Date: 05/15/15 Stop Date: 05/15/15 Status: Completed insulin aspart 2 unit, 0.02 mL, Route: SUB-Q, Drug form: SOLN, TID-Before Meals, Dosing Weight 77.727, kg, PRN Blood Glucose Results, Start date: 05/14/15 1:35:00, Duration: 3 0 day, Stop date: 06/13/15 1:34:00 Notes: Roll in palms of hands gently; Do not shake vigorously. (Same as: Tesfaye Mccray)"single patient use only"WASTE: F/P - Black; E - Municipal Trash Bin Stable f or 28 days at room temperature.Expires in days from Date Start Date: 05/14/15 Stop Date: 05/20/15 Status: Discontinued insulin aspart 4 unit, 0.04 mL, Route: SUB-Q, Drug form: SOLN, TID-Before Meals, Dosing Weight 77.727, kg, PRN Blood Glucose Results, Start date: 05/14/15 1:35:00, Duration: 3 0 day, Stop date: 06/13/15 1:34:00 Notes: Roll in palms of hands gently; Do not shake vigorously. (Same as: Tesfaye Mccray)"single patient use only"WASTE: F/P - Black; E - Municipal Trash Bin Stable f or 28 days at room temperature.Expires in days from Date Start Date: 05/14/15 Stop Date: 05/20/15 Status: Discontinued insulin aspart 10 unit, 0.1 mL, Route: SUB-Q, Drug form: SOLN, TID-Before Meals, Dosing Weight 77.727, kg, PRN Blood Glucose Results, Start date: 05/14/15 1:35:00, Duration: 3 0 day, Stop date: 06/13/15 1:34:00 Notes: Roll in palms of hands gently; Do not shake vigorously. (Same as: Tesfaye Mccray)"single patient use only"WASTE: F/P - Black; E - Municipal Trash Bin Stable f or 28 days at room temperature.Expires in days from Date Start Date: 05/14/15 Stop Date: 05/20/15 Status: Discontinued insulin aspart 8 unit, 0.08 mL, Route: SUB-Q, Drug form: SOLN, TID-Before Meals, Dosing Weight 77.727, kg, PRN Blood Glucose Results, Start date: 05/14/15 1:35:00, Duration: 3 0 day, Stop date: 06/13/15 1:34:00 Notes: Roll in palms of hands gently; Do not shake vigorously. (Same as: Tesfaye Mccray)"single patient use only"WASTE: F/P - Black; E - Municipal Trash Bin Stable f or 28 days at room temperature.Expires in days from Date Start Date: 05/14/15 Stop Date: 05/20/15 Status: Discontinued insulin aspart 6 unit, 0.06 mL, Route: SUB-Q, Drug form: SOLN, TID-Before Meals, Dosing Weight 77.727, kg, PRN Blood Glucose Results, Start date: 05/14/15 1:35:00, Duration: 3 0 day, Stop date: 06/13/15 1:34:00 Notes: Roll in palms of hands gently; Do not shake vigorously. (Same as: Tesfaye Mccray)"single patient use only"WASTE: F/P - Black; E - Municipal Trash Bin Stable f or 28 days at room temperature.Expires in days from Date Start Date: 05/14/15 Stop Date: 05/20/15 Status: Discontinued insulin aspart 4 unit, 0.04 mL, Route: SUB-Q, Drug form: SOLN, Bedtime, Dosing Weight 80.3, kg, PRN Blood Glucose Results, Start date: 05/17/15 20:47:00, Duration: 30 day, Stop date: 06/16/15 20:46:00 Notes: Roll in palms of hands gently; Do not shake vigorously. (Same as: Tesfaye Mccray)"single patient use only"WASTE: F/P - Black; E - Municipal Trash Bin Stable f or 28 days at room temperature.Expires in days from Date Start Date: 05/17/15 Stop Date: 05/20/15 Status: Discontinued insulin aspart 3 unit, 0.03 mL, Route: SUB-Q, Drug form: SOLN, Bedtime, Dosing Weight 80.3, kg, PRN Blood Glucose Results, Start date: 05/17/15 20:47:00, Duration: 30 day, Stop date: 06/16/15 20:46:00 Notes: Roll in palms of hands gently; Do not shake vigorously. (Same as: Tesfaye Mccray)"single patient use only"WASTE: F/P - Black; E - Municipal Trash Bin Stable f or 28 days at room temperature.Expires in days from Date Start Date: 05/17/15 Stop Date: 05/20/15 Status: Discontinued insulin aspart 1 unit, 0.01 mL, Route: SUB-Q, Drug form: SOLN, Bedtime, Dosing Weight 80.3, kg, PRN Blood Glucose Results, Start date: 05/17/15 20:47:00, Duration: 30 day, Stop date: 06/16/15 20:46:00 Notes: Roll in palms of hands gently; Do not shake vigorously. (Same as: Tesfaye Mccray)"single patient use only"WASTE: F/P - Black; E - Municipal Trash Bin Stable f or 28 days at room temperature.Expires in days from Date Start Date: 05/17/15 Stop Date: 05/20/15 Status: Discontinued insulin aspart 2 unit, 0.02 mL, Route: SUB-Q, Drug form: SOLN, Bedtime, Dosing Weight 80.3, kg, PRN Blood Glucose Results, Start date: 05/17/15 20:47:00, Duration: 30 day, Stop date: 06/16/15 20:46:00 Notes: Roll in palms of hands gently; Do not shake vigorously. (Same as: Tesfaye Mccray)"single patient use only"WASTE: F/P - Black; E - Municipal Trash Bin Stable f or 28 days at room temperature.Expires in days from Date Start Date: 05/17/15 Stop Date: 05/20/15 Status: Discontinued isosorbide mononitrate 120 mg oral tablet, extended release 120 mg=1 tab, PO, QAM, # 30 tab, 2 Refill(s) Start Date: 05/20/15 Status: Ordered isosorbide mononitrate 30 mg oral tablet, extended release 30 mg=1 tab, PO, Daily Start Date: 05/17/15 Stop Date: 05/20/15 Status: Discontinued Lon 24 gm packet 1 pkt, Route: PO, Drug Form: PWDR, Dosing Weight 80.3, kg, BID, Start date: 04/29 10/11 17:00:00, Duration: 14 day, Stop date: 05/29/15 9:00:00 Notes: (Same as: Lon [place]) Start Date: 05/15/15 Stop Date: 05/20/15 Status: Discontinued Keppra 500 mg oral tablet 500 mg=1 tab, PO, BID Start Date: 05/17/15 Stop Date: 05/20/15 Status: Discontinued labetalol 20 mg, 4 mL, Route: IVP, Drug form: INJ, Q10Min, Dosing Weight 80.3, kg, PRN Oth er -See Comment, Start date: 05/15/15 16:31:00, Duration: 30 day, Stop date: 17:30:00 Start Date: 05/15/15 Stop Date: 05/20/15 Status: Discontinued Lasix 20 mg, 2 mL, Route: IVP, Drug form: INJ, ONCE, Dosing Weight 77.727, kg, Priorit y: STAT, Start date: 05/13/15 23:26:00, Stop date: 05/13/15 23:26:00 Notes: (Same as: Lasix) Start Date: 05/13/15 Stop Date: 05/13/15 Status: Completed Lasix 20 mg, 2 mL, Route: IVP, Drug form: INJ, ONCE, Dosing Weight 77.727, kg, Priorit y: STAT, Start date: 05/14/15 1:29:00, Stop date: 05/14/15 1:29:00 Notes: (Same as: Lasix) Start Date: 05/14/15 Stop Date: 05/14/15 Status: Completed Lasix 40 mg oral tablet 40 mg, 1 tab, Route: PO, Q12H, Dosing Weight 77.727, kg, Start date: 05/14/15 9: 00:00, Duration: 30 day, Stop date: 06/12/15 21:00:00 Start Date: 05/14/15 Stop Date: 05/14/15 Status: Canceled Lasix 40 mg oral tablet 40 mg, 4 mL, Route: IV, Drug form: INJ, Q12H, Dosing Weight 77.727, kg, Start da te: 05/14/15 9:00:00, Duration: 30 day, Stop date: 06/12/15 21:00:00 Notes: (Same as: Lasix) MEDICATION WASTE Product Size: 40 mgProduct Was yecenia: ___ mg Start Date: 05/14/15 Stop Date: 05/15/15 Status: Discontinued Lasix 40 mg oral tablet 40 mg, 4 mL, Route: IV, Drug form: INJ, Q8H, Dosing Weight 77.727, kg, Start adrian e: 05/15/15 16:00:00, Duration: 30 day, Stop date: 06/14/15 8:00:00 Notes: (Same as: Lasix) MEDICATION WASTE Product Size: 40 mgProduct Was yecenia: ___ mg Start Date: 05/15/15 Stop Date: 05/20/15 Status: Discontinued lidocaine 1% 1 vial, Route: SUB-Q, Dosing Weight 80.3, kg, ONCE, PRN, Start date: 05/20/15 11 :53:00, Stop date: 05/20/15 11:53:00, for procedure Start Date: 05/20/15 Stop Date: 05/20/15 Status: Deleted lidocaine 1% injectable solution 200 mg, 20 mL, Route: SUB-Q, Drug Form: INJ, Dosing Weight 80.3, kg, ONCE, Start date: 05/20/15 11:50:00, Stop date: 05/20/15 11:50:00 Notes: (Same as: Xylocaine) Start Date: 05/20/15 Stop Date: 05/20/15 Status: Ordered lisinopril 5 mg oral tablet 5 mg=1 tab, PO, Daily, # 30 tab, 2 Refill(s) Start Date: 05/20/15 Status: Ordered magnesium sulfate 1 gm, Route: IVPB, Drug form: INJ, ONCE, Dosing Weight 80.3, kg, Start date: 6:37:00, Stop date: 05/15/15 6:37:00 Start Date: 05/15/15 Stop Date: 05/15/15 Status: Discontinued metoprolol tartrate 25 mg oral tablet 12.5 mg=0.5 tab, PO, Q12H Start Date: 05/17/15 Stop Date: 05/20/15 Status: Discontinued Nifediac CC 90 mg oral tablet, extended release 90 mg=1 tab, PO, BID Start Date: 05/17/15 Stop Date: 05/20/15 Status: Discontinued nitroglycerin 0.4 mg sublingual tablet 0.4 mg, 1 tab, Route: SL, Drug form: TAB, Q5Min, Dosing Weight 77.727, kg, PRN C hest Pain, Start date: 05/14/15 12:52:00, Duration: 30 day, Stop date: 06/13/15 13:51:00 Notes: (Same as:Nitroquick, Nitrostat)"Do Not Crush" Sublingual tablet Start Date: 05/14/15 Stop Date: 05/20/15 Status: Discontinued [place] 7.5/325 oral tablet 1 tab, Route: PO, Drug Form: TAB, Dosing Weight 77.727, kg, Q4H, PRN Pain Score 4-6, Start date: 05/15/15 7:26:00, Duration: 30 day, Stop date: 06/14/15 7:25:00 Notes: Same as [place] 325-7.5mg Do not exceed 4gm/day of acetaminophen. Start Date: 05/15/15 Stop Date: 05/20/15 Status: Discontinued [place] 7.5/325 oral tablet 1 tab, Route: PO, Drug Form: TAB, Dosing Weight 77.727, kg, Q6H, PRN Pain Score 4-6, Start date: 05/14/15 17:49:00, Duration: 30 day, Stop date: 06/13/15 17:48: 00 Notes: Same as [place] 325-7.5mg Do not exceed 4gm/day of acetaminophen. Start Date: 05/14/15 Stop Date: 05/15/15 Status: Discontinued nystatin topical 100,000 units/g cream 1 appl, Route: TOP, Q12H, Drug form: CRM, Start date: 05/20/15 13:00:00, Duratio n: 30 day, Stop date: 06/19/15 9:00:00 Notes: (Same as:Mycostatin, Nilstat) For external use only. Start Date: 05/20/15 Stop Date: 05/20/15 Status: Discontinued nystatin-triamcinolone topical cream 1 appl, Route: TOP, Q12H, Drug form: CRM, Start date: 05/20/15 13:00:00, Duratio n: 30 day, Stop date: 06/19/15 9:00:00 Notes: For External Use Only (Same as:Mycolog II cream) Start Date: 05/20/15 Stop Date: 05/20/15 Status: Deleted Pepcid 20 mg oral tablet 20 mg=1 tab, PO, Daily Start Date: 05/17/15 Status: Ordered pneumococcal 23-valent vaccine 0.5 mL, Route: IM, Drug Form: INJ, Daily, Start date: 05/15/15 9:00:00, Duration : 1 doses or times, Stop date: 05/15/15 9:00:00 Notes: (Same as: Pneumovax 23) Refrigerate Start Date: 05/15/15 Stop Date: 05/15/15 Status: Completed Protonix 40 mg, 1 tab, Route: PO, Drug form: ECTAB, Before Dinner, Start date: 05/14/15 1 6:30:00, Duration: 30 day, Stop date: 06/12/15 16:30:00 Notes: Tablet should not be chewed or crushed.(Same as: Protonix) Start Date: 05/14/15 Stop Date: 05/20/15 Status: Discontinued senna 8.6 mg oral tablet 8.6 mg, 1 tab, Route: PO, Drug Form: TAB, Dosing Weight 80.3, kg, Bedtime, PRN C onstipation, Start date: 05/15/15 11:45:00, Duration: 30 day, Stop date: 6 11:44:00 Notes: (Same as: Chiquita) Start Date: 05/15/15 Stop Date: 05/20/15 Status: Discontinued senna 8.6 mg oral tablet 1 tab, Route: PO, Drug Form: TAB, Dosing Weight 80.3, kg, Bedtime, PRN Constipat ion, Start date: 05/15/15 16:29:00, Duration: 30 day, Stop date: 06/14/15 16:28: 00 Start Date: 05/15/15 Stop Date: 05/15/15 Status: Deleted SEROquel 25 mg oral tablet 25 mg=1 tab, PO, Daily Start Date: 05/17/15 Status: Ordered sodium bicarbonate 10 g, PO, TID Start Date: 05/17/15 Stop Date: 05/20/15 Status: Discontinued terbinafine topical 1% cream 1 appl, Route: TOP, Drug Form: CRM, Dosing Weight 77.727, kg, BID, Start date: 0 05/14/15 9:00:00, Duration: 30 day, Stop date: 06/12/15 17:00:00 Start Date: 05/14/15 Stop Date: 05/14/15 Status: Discontinued Tessalon Perles 100 mg, 1 cap, Route: PO, Drug form: CAP, TID, Dosing Weight 80.3, kg, Start adrian e: 05/16/15 6:00:00, Duration: 30 day, Stop date: 06/14/15 17:00:00 Notes: (Same As: Tessalon Perles)"Do Not Crush" Start Date: 05/16/15 Stop Date: 05/20/15 Status: Discontinued torsemide 100 mg oral tablet 100 mg=1 tab, PO, BID Start Date: 05/17/15 Stop Date: 05/20/15 Status: Discontinued tramadol 50 mg oral tablet 50 mg=1 tab, PO, Q6H, PRN Pain, X 10 day, # 40 tab, 0 Refill(s) Start Date: 05/20/15 Stop Date: 05/30/15 Status: Ordered triamcinolone topical 0.1% cream 1 appl, Route: TOP, Q12H, Drug form: CRM, Start date: 05/20/15 13:00:00, Duratio n: 30 day, Stop date: 06/19/15 9:00:00 Notes: (triamcinolone acetonide 0.1% 15 gm top CRM)(Same As: Kenalog) Start Date: 05/20/15 Stop Date: 05/20/15 Status: Discontinued Results ELECTROLYTES 1 2 3 Most recent to oldest [Reference Range]: 141 mEq/L (05/20/15 5:09 AM) 140 mEq/L (05/19/15 2:30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
--- OUTSIDE RECORDS SUMMARY | 2018-05-16 23:38 | XMS REPORT | Summary of Care ---
Author Author [facility] Organization [facility] Address Unknown Phone Unavailable Encounter HQ Sara(WILDER) [id number] Date(s): 10/20/15 - 10/28/15 [facility] [address] [place] [address]- [phone] Discharge Disposition: Residential Facility Attending Physician: Fer De La Garza DO Admitting Physician: Fer De La Garza DO Vital Signs 1 2 3 Most recent to oldest [Reference Range]: 162.56 cm (10/24/15 12:02 AM) 162.56 cm (10/21/15 2:24 AM) 165.1 cm (10/20/15 6:11 PM) Height 67.074 kg (10/26/15 5:22 AM) 67.898 kg (10/25/15 6:05 AM) 65.54 kg (10/24/15 6:55 AM) Current Weight 98.2 DegF (10/28/15 3:16 PM) 97.6 DegF (10/28/15 11:25 AM) 97.6 DegF (10/28/15 7:13 AM) Temperature Oral [96.4-99.1 DegF] 149/75 mmHg *HI* (10/28/15 3:16 PM) 208/106 mmHg *HI* (10/28/15 11:25 AM) 170/94 mmHg *HI* (10/28/15 7:13 AM) Blood Pressure [90-140/60-90 mmHg] 18 BRMIN (10/28/15 4:54 PM) 18 BRMIN (10/28/15 3:16 PM) 18 BRMIN (10/28/15 11:25 AM) Respiratory Rate [14-20 BRMIN] 75 bpm (10/28/15 3:16 PM) 69 bpm (10/28/15 11:25 AM) 63 bpm (10/28/15 7:13 AM) Peripheral Pulse Rate [60-100 bpm] 68.892 kg (10/28/15 5:35 AM) 68.182 kg (10/24/15 12:02 AM) 70.938 kg (10/21/15 2:24 AM) Weight 25.8 m2 (10/24/15 12:02 AM) 26.84 m2 (10/21/15 2:24 AM) 30.02 m2 (10/20/15 6:11 PM) Body Mass Index Problem List Condition Effective Dates Status Health Status Informant Asthma(Confirmed) Resolved Bipolar(Confirmed) Active COPD(Confirmed) Active Diabetes Active mellitus(Confirmed) ESRD (end stage Active renal disease)(Confirmed) HTN - Active Hypertension(Confirm ed) Schizophrenia(Confir Active med) Allergies, Adverse Reactions, Alerts Substance Reaction Severity Status aspirin Active Medications albumin human 25 gm, 100 mL, Route: IV, Drug form: INJ, During Dialysis, PRN Dialysis, Start d ate: 10/25/15 14:23:00 CDT, Duration: 30 day, Stop date: 11/24/15 14:22:00 CDT Notes: Lot #: Mfg: (Same as: Plasbumin-[id number])"blood pr oduct derivative"WASTE: F/P - Red; E -Red MEDICATION WASTE Product Size: 25 gmProduct Wasted: ___ gm Start Date: 10/25/15 Stop Date: 10/28/15 Status: Discontinued albuterol 0.083% inhalation solution 10 mg, 12.05 mL, Route: INHALATION, Drug form: SOLN, Q6H, Dosing Weight 81.818, kg, Start date: 10/21/15 0:00:00 CDT, Duration: 30 day, Stop date: 11/19/15 18:0 0:00 CDT, Notes: SEE RT DOCUMENTATION (Same as: Nabor) Start Date: 10/21/15 Stop Date: 10/24/15 Status: Discontinued amLODIPine 10 mg oral tablet 10 mg=1 tab, PO, Daily, # 30 tab, 2 Refill(s) Start Date: 10/25/15 Status: Ordered carvedilol 3.125 mg oral tablet 3.125 mg=1 tab, PO, Q12H, # 60 tab, 0 Refill(s) Start Date: 10/25/15 Status: Ordered cloNIDine 0.1 mg, 1 tab, Route: PO, Drug form: TAB, Q12H, Dosing Weight 70.938, kg, Start date: 10/22/15 21:00:00 CDT, Duration: 30 day, Stop date: 11/21/15 9:00:00 CDT Notes: (Same As: Diego) Start Date: 10/22/15 Stop Date: 10/23/15 Status: Discontinued cloNIDine 0.1 mg, 1 tab, Route: PO, Drug form: TAB, TID, Dosing Weight 70.938, kg, Start d ate: 10/23/15 9:00:00 CDT, Duration: 30 day, Stop date: 11/21/15 17:00:00 CDT Notes: (Same As: Diego) Start Date: 10/23/15 Stop Date: 10/25/15 Status: Voided With Results cloNIDine 0.2 mg, 1 tab, Route: PO, Drug form: TAB, Q12H, Dosing Weight 70.938, kg, PRN El evated BP, Priority: NOW, Start date: 10/23/15 0:31:00 CDT, Duration: 2 doses or times, Stop date: Limited # of times, SBP persistantly > 185mmHG Notes: (Same As: Diego) Start Date: 10/23/15 Stop Date: 10/28/15 Status: Discontinued cloNIDine 0.1 mg oral tablet 0.1 mg=1 tab, PO, TID, # 90 tab, 0 Refill(s) Start Date: 10/25/15 Stop Date: 11/24/15 Status: Ordered cloNIDine 0.1 mg oral tablet 0.1 mg, 1 tab, Route: PO, Drug form: TAB, TID, Dosing Weight 70.938, kg, Start d ate: 10/26/15 5:00:00 CDT, Duration: 30 day, Stop date: 11/24/15 17:00:00 CDT Notes: (Same As: Diego) Start Date: 10/26/15 Stop Date: 10/28/15 Status: Discontinued cloNIDine 0.2 mg oral tablet 0.2 mg, 1 tab, Route: PO, Drug form: TAB, ONCE, Dosing Weight 68.182, kg, Priori ty: STAT, Start date: 10/24/15 5:08:00 CDT, Stop date: 10/24/15 5:08:00 CDT Notes: (Same As: Rosalbaapres) Start Date: 10/24/15 Stop Date: 10/24/15 Status: Completed Coreg 6.25 mg, 1 tab, Route: PO, Drug form: TAB, Q12H, Dosing Weight 68.182, kg, Start date: 10/26/15 9:00:00 CDT, Duration: 30 day, Stop date: 11/24/15 21:00:00 CDT Notes: Give with food. (Same As: Coreg) Start Date: 10/26/15 Stop Date: 10/28/15 Status: Discontinued Dextrose 50% Syringe 25 gm, 50 mL, Route: IVP, Drug Form: INJ, Dosing Weight 81.818, kg, PRN, PRN Blo od Glucose Results, Start date: 10/20/15 22:02:00 CDT, Duration: 30 day, Stop da te: 11/19/15 22:01:00 CDT Start Date: 10/20/15 Stop Date: 10/28/15 Status: Discontinued Dextrose 50% Syringe 12.5 gm, 25 mL, Route: IVP, Drug Form: INJ, Dosing Weight 81.818, kg, PRN, PRN B lood Glucose Results, Start date: 10/20/15 22:02:00 CDT, Duration: 30 day, Stop date: 11/19/15 22:01:00 CDT Start Date: 10/20/15 Stop Date: 10/28/15 Status: Discontinued Dextrose 50% Syringe 25 gm, 50 mL, Route: IVP, Drug Form: INJ, Dosing Weight 81.818, kg, PRN, PRN Blo od Glucose Results, Start date: 10/20/15 21:17:00 CDT, Duration: 30 day, Stop da te: 11/19/15 21:16:00 CDT Start Date: 10/20/15 Stop Date: 10/20/15 Status: Discontinued Dextrose 50% Syringe 12.5 gm, 25 mL, Route: IVP, Drug Form: INJ, Dosing Weight 81.818, kg, PRN, PRN B lood Glucose Results, Start date: 10/20/15 21:17:00 CDT, Duration: 30 day, Stop date: 11/19/15 21:16:00 CDT Start Date: 10/20/15 Stop Date: 10/20/15 Status: Discontinued glucagon 1 mg, Route: IM, Drug form: PDR/INJ, PRN, Dosing Weight 81.818, kg, PRN Blood Gl ucose Results, Start date: 10/20/15 22:02:00 CDT, Duration: 30 day, Stop date: 0 11/19/15 22:01:00 CDT Start Date: 10/20/15 Stop Date: 10/28/15 Status: Discontinued glucagon 1 mg, Route: IM, Drug form: PDR/INJ, PRN, Dosing Weight 81.818, kg, PRN Blood Gl ucose Results, Start date: 10/20/15 21:17:00 CDT, Duration: 30 day, Stop date: 0 11/19/15 21:16:00 CDT Start Date: 10/20/15 Stop Date: 10/20/15 Status: Discontinued glyBURIDE 5 mg, 1 tab, Route: PO, Drug form: TAB, Daily, Dosing Weight 70.938, kg, Start d ate: 10/22/15 9:00:00 CDT, Duration: 30 day, Stop date: 11/20/15 9:00:00 CDT Notes: (Same as: Micronase, Diabeta) Take with meals. Start Date: 10/22/15 Stop Date: 10/28/15 Status: Discontinued glyBURIDE 5 mg oral tablet 5 mg=1 tab, PO, Daily, # 30 tab, 0 Refill(s) Start Date: 10/25/15 Stop Date: 11/24/15 Status: Ordered heparin 10,000 unit, 2 mL, Route: IV, Drug form: INJ, During Dialysis, PRN Dialysis, Sta rt date: 10/21/15 15:35:00 CDT, Duration: 30 day, Stop date: 11/20/15 15:34:00 C DT Notes: porcine heparin Start Date: 10/21/15 Stop Date: 10/28/15 Status: Discontinued heparin 5,000 unit, 1 mL, Route: SUB-Q, Drug form: INJ, Q8H, Dosing Weight 68.182, kg, S tart date: 10/26/15 16:00:00 CDT, Duration: 30 day, Stop date: 11/25/15 8:00:00 CDT Notes: porcine heparin Start Date: 10/26/15 Stop Date: 10/28/15 Status: Discontinued hydrALAZINE 50 mg, 1 tab, Route: PO, Drug form: TAB, Q6H, Dosing Weight 70.938, kg, Start da te: 10/22/15 12:00:00 CDT, Stop date: 11/21/15 8:00:00 CDT Notes: (Same as: Apresoline) May interfere w/enteral feedings Take With Food Start Date: 10/22/15 Stop Date: 10/28/15 Status: Discontinued hydrALAZINE 10 mg, 0.5 mL, Route: IV, Drug form: INJ, Q6H, Dosing Weight 68.182, kg, PRN Caryl vated BP, Start date: 10/24/15 5:09:00 CDT, Duration: 2 doses or times, Stop adrian e: Limited # of times, SBP > 165 mmHG not controlled w/ clonidine Notes: (Same as: Apresoline)Push over 5 minutes Start Date: 10/24/15 Stop Date: 10/27/15 Status: Completed hydrALAZINE 10 mg, 0.5 mL, Route: IV, Drug form: INJ, TID, Dosing Weight 70.938, kg, PRN Caryl vated BP, Priority: NOW, Start date: 10/23/15 0:31:00 CDT, Duration: 2 doses or times, Stop date: Limited # of times, SBP >165mmHG Notes: (Same as: Apresoline)Push over 5 minutes Start Date: 10/23/15 Stop Date: 10/23/15 Status: Completed hydrALAZINE 25 mg oral tablet 50 mg=2 tab, PO, TID, # 90 tab, 2 Refill(s) Start Date: 10/25/15 Status: Ordered hydrALAZINE 50 mg oral tablet 50 mg=1 tab, PO, Q6H, # 120 tab, 0 Refill(s) Start Date: 10/25/15 Stop Date: 11/24/15 Status: Ordered Imdur 60 mg, 2 tab, Route: PO, Drug form: ERTAB, QAM, Dosing Weight 70.938, kg, Start date: 10/21/15 13:38:00 CDT, Duration: 30 day, Stop date: 11/20/15 9:00:00 CDT Notes: (Same as:Imdur)"Do Not Crush" Take on empty stomach/ full glass of water . Do not crush Start Date: 10/21/15 Stop Date: 10/28/15 Status: Discontinued insulin aspart 12 unit, 0.12 mL, Route: SUB-Q, Drug form: SOLN, Sliding Scale, Dosing Weight 81 .818, kg, PRN Blood Glucose Results, Start date: 10/20/15 22:02:00 CDT, Duration : 30 day, Stop date: 11/19/15 22:01:00 CDT Notes: Roll in palms of hands gently; Do not shake vigorously. (Same as: Tesfaye Mccray)"single patient use only"WASTE: F/P - Black; E - Municipal Trash Bin Stable f or 28 days at room temperature.Expires in days from Date Start Date: 10/20/15 Stop Date: 10/28/15 Status: Discontinued insulin aspart 3 unit, 0.03 mL, Route: SUB-Q, Drug form: SOLN, Sliding Scale, Dosing Weight 81. 818, kg, PRN Blood Glucose Results, Start date: 10/20/15 22:02:00 CDT, Duration: 30 day, Stop date: 11/19/15 22:01:00 CDT Notes: Roll in palms of hands gently; Do not shake vigorously. (Same as: Tesfaye Mccray)"single patient use only"WASTE: F/P - Black; E - Municipal Trash Bin Stable f or 28 days at room temperature.Expires in days from Date Start Date: 10/20/15 Stop Date: 10/28/15 Status: Discontinued insulin aspart 6 unit, 0.06 mL, Route: SUB-Q, Drug form: SOLN, Sliding Scale, Dosing Weight 81. 818, kg, PRN Blood Glucose Results, Start date: 10/20/15 22:02:00 CDT, Duration: 30 day, Stop date: 11/19/15 22:01:00 CDT Notes: Roll in palms of hands gently; Do not shake vigorously. (Same as: Tesfaye Mccray)"single patient use only"WASTE: F/P - Black; E - Municipal Trash Bin Stable f or 28 days at room temperature.Expires in days from Date Start Date: 10/20/15 Stop Date: 10/28/15 Status: Discontinued insulin aspart 15 unit, 0.15 mL, Route: SUB-Q, Drug form: SOLN, Sliding Scale, Dosing Weight 81 .818, kg, PRN Blood Glucose Results, Start date: 10/20/15 22:02:00 CDT, Duration : 30 day, Stop date: 11/19/15 22:01:00 CDT Notes: Roll in palms of hands gently; Do not shake vigorously. (Same as: Tesfaye Mccray)"single patient use only"WASTE: F/P - Black; E - Municipal Trash Bin Stable f or 28 days at room temperature.Expires in days from Date Start Date: 10/20/15 Stop Date: 10/28/15 Status: Discontinued insulin aspart 9 unit, 0.09 mL, Route: SUB-Q, Drug form: SOLN, Sliding Scale, Dosing Weight 81. 818, kg, PRN Blood Glucose Results, Start date: 10/20/15 22:02:00 CDT, Duration: 30 day, Stop date: 11/19/15 22:01:00 CDT Notes: Roll in palms of hands gently; Do not shake vigorously. (Same as: Tesfaye Mccray)"single patient use only"WASTE: F/P - Black; E - Municipal Trash Bin Stable f or 28 days at room temperature.Expires in days from Date Start Date: 10/20/15 Stop Date: 10/28/15 Status: Discontinued insulin aspart 10 unit, 0.1 mL, Route: SUB-Q, Drug form: SOLN, TID-Before Meals, Dosing Weight 81.818, kg, PRN Blood Glucose Results, Start date: 10/20/15 21:17:00 CDT, Durati on: 30 day, Stop date: 11/19/15 21:16:00 CDT Notes: Roll in palms of hands gently; Do not shake vigorously. (Same as: Tesfaye Mccray)"single patient use only"WASTE: F/P - Black; E - Municipal Trash Bin Stable f or 28 days at room temperature.Expires in days from Date Start Date: 10/20/15 Stop Date: 10/20/15 Status: Discontinued insulin aspart 4 unit, 0.04 mL, Route: SUB-Q, Drug form: SOLN, TID-Before Meals, Dosing Weight 81.818, kg, PRN Blood Glucose Results, Start date: 10/20/15 21:17:00 CDT, Durati on: 30 day, Stop date: 11/19/15 21:16:00 CDT Notes: Roll in palms of hands gently; Do not shake vigorously. (Same as: Tesfaye Mccray)"single patient use only"WASTE: F/P - Black; E - Municipal Trash Bin Stable f or 28 days at room temperature.Expires in days from Date Start Date: 10/20/15 Stop Date: 10/20/15 Status: Discontinued insulin aspart 6 unit, 0.06 mL, Route: SUB-Q, Drug form: SOLN, TID-Before Meals, Dosing Weight 81.818, kg, PRN Blood Glucose Results, Start date: 10/20/15 21:17:00 CDT, Durati on: 30 day, Stop date: 11/19/15 21:16:00 CDT Notes: Roll in palms of hands gently; Do not shake vigorously. (Same as: NovoTHAO Mccray)"single patient use only"WASTE: F/P - Black; E - Municipal Trash Bin Stable f or 28 days at room temperature.Expires in days from Date Start Date: 10/20/15 Stop Date: 10/20/15 Status: Discontinued insulin aspart 2 unit, 0.02 mL, Route: SUB-Q, Drug form: SOLN, TID-Before Meals, Dosing Weight 81.818, kg, PRN Blood Glucose Results, Start date: 10/20/15 21:17:00 CDT, Durati on: 30 day, Stop date: 11/19/15 21:16:00 CDT Notes: Roll in palms of hands gently; Do not shake vigorously. (Same as: NovoTHAO Mccray)"single patient use only"WASTE: F/P - Black; E - Municipal Trash Bin Stable f or 28 days at room temperature.Expires in days from Date Start Date: 10/20/15 Stop Date: 10/20/15 Status: Discontinued insulin aspart 8 unit, 0.08 mL, Route: SUB-Q, Drug form: SOLN, TID-Before Meals, Dosing Weight 81.818, kg, PRN Blood Glucose Results, Start date: 10/20/15 21:17:00 CDT, Durati on: 30 , Stop date: 11/19/15 21:16:00 CDT Notes: Roll in palms of hands gently; Do not shake vigorously. (Same as: NovoTHAO Mccray)"single patient use only"WASTE: F/P - Black; E - Municipal Trash Bin Stable f or 28 days at room temperature.Expires in days from Date Start Date: 10/20/15 Stop Date: 10/20/15 Status: Discontinued Insulin regular 12 unit, 0.12 mL, Route: SUB-Q, Drug form: SOLN, ONCE, Dosing Weight 81.818, kg, Start date: 10/20/15 19:49:00 CDT, Stop date: 10/20/15 19:49:00 CDT Notes: (Same as: Humulin R) Roll in palms of hands gently; Do not shake vigorou sly. "single patient use only"(Restricted to patients requiring a dose > 60 units)WASTE: F/P - Black; E - Municipal Trash Bin Stable for 28 days at room temperatureExpires in days from Date Start Date: 10/20/15 Stop Date: 10/20/15 Status: Discontinued Insulin regular 7 unit, 0.07 mL, Route: SUB-Q, Drug form: SOLN, ONCE, Dosing Weight 81.818, kg, Start date: 10/20/15 19:54:00 CDT, Stop date: 10/20/15 19:54:00 CDT Notes: (Same as: Humulin R) Roll in palms of hands gently; Do not shake vigorou sly. "single patient use only"(Restricted to patients requiring a dose > 60 units)WASTE: F/P - Black; E - Municipal Trash Bin Stable for 28 days at room temperatureExpires in days from Date Start Date: 10/20/15 Stop Date: 10/20/15 Status: Completed Insulin regular 5 unit, 0.05 mL, Route: IV, Drug form: SOLN, ONCE, Dosing Weight 81.818, kg, Sta rt date: 10/20/15 19:54:00 CDT, Stop date: 10/20/15 19:54:00 CDT Notes: (Same as: Humulin R) Roll in palms of hands gently; Do not shake vigorou sly. "single patient use only"(Restricted to patients requiring a dose > 60 units)WASTE: F/P - Black; E - Municipal Trash Bin Stable for 28 days at room temperatureExpires in days from Date Start Date: 10/20/15 Stop Date: 10/20/15 Status: Completed isosorbide mononitrate 120 mg oral tablet, extended release 120 mg=1 tab, PO, QAM, # 30 tab, 2 Refill(s) Start Date: 10/25/15 Status: Ordered Kayexalate 30 gm, 120 mL, Route: PO, Drug form: SUSP, ONCE, Dosing Weight 68.182, kg, Start date: 10/27/15 10:17:00 CDT, Stop date: 10/27/15 10:17:00 CDT Notes: (sodium polystyrene sulfonate 15 gm/60 ml MEEK) Shake well before use. (Same as: Kayexalate, SPS) Start Date: 10/27/15 Stop Date: 10/27/15 Status: Completed Kayexalate 15 gm, 60 mL, Route: PO, Drug form: SUSP, ONCE, Dosing Weight 81.818, kg, Priori ty: STAT, Start date: 10/20/15 19:49:00 CDT, Stop date: 10/20/15 19:49:00 CDT Notes: (sodium polystyrene sulfonate 15 gm/60 ml MEEK) Shake well before use. (Same as: Kayexalate, SPS) Start Date: 10/20/15 Stop Date: 10/20/15 Status: Completed Kayexalate 15 gm, 60 mL, Route: PO, Drug form: SUSP, ONCE, Dosing Weight 68.182, kg, Start date: 10/27/15 14:25:00 CDT, Stop date: 10/27/15 14:25:00 CDT Notes: (sodium polystyrene sulfonate 15 gm/60 ml MEEK) Shake well before use. (Same as: Kayexalate, SPS) Start Date: 10/27/15 Stop Date: 10/27/15 Status: Completed Lasix 40 mg, 4 mL, Route: IVP, Drug form: INJ, ONCE, Dosing Weight 81.818, kg, Priorit y: STAT, Start date: 10/20/15 18:55:00 CDT, Stop date: 10/20/15 18:55:00 CDT Notes: (Same as: Lasix) MEDICATION WASTE Product Size: 40 mgProduct Was yecenia: ___ mg Start Date: 10/20/15 Stop Date: 10/20/15 Status: Completed lisinopril 40 mg, 2 tab, Route: PO, Drug form: TAB, Daily, Dosing Weight 70.938, kg, Start date: 10/22/15 9:00:00 CDT, Duration: 30 day, Stop date: 11/20/15 9:00:00 CDT Notes: (Same as: Prinivroya Zestril) Start Date: 10/22/15 Stop Date: 10/22/15 Status: Canceled lisinopril 40 mg, 2 tab, Route: PO, Drug form: TAB, Daily, Dosing Weight 70.938, kg, Start date: 10/22/15 1:35:00 CDT, Duration: 30 day, Stop date: 11/20/15 9:00:00 CDT Notes: (Same as: Prinivroya Zestril) Start Date: 10/22/15 Stop Date: 10/28/15 Status: Discontinued lisinopril 20 mg oral tablet 40 mg=2 tab, PO, Daily, # 60 tab, 0 Refill(s) Start Date: 10/25/15 Stop Date: 11/24/15 Status: Ordered morphine Sulfate 2 mg, 1 mL, Route: IVP, Drug form: INJ, Q2H, Dosing Weight 70.938, kg, PRN Pain Score 7-10, Start date: 10/22/15 2:08:00 CDT, Duration: 30 day, Stop date: 11/20 2:07:00 CDT Notes: (Same as:MORPhine Sulfate) Start Date: 10/22/15 Stop Date: 10/28/15 Status: Discontinued morphine Sulfate 2 mg, 1 mL, Route: IVP, Drug form: INJ, Q2H, Dosing Weight 81.818, kg, PRN Pain Score 6-10, Start date: 10/20/15 22:00:00 CDT, Duration: 2 doses or times, Stop date: Limited # of times Notes: (Same as:MORPhine Sulfate) Start Date: 10/20/15 Stop Date: 10/21/15 Status: Completed morphine Sulfate 4 mg, 1 mL, Route: IVP, Drug form: INJ, ONCE, Dosing Weight 81.818, kg, Priority : STAT, Start date: 10/20/15 19:52:00 CDT, Stop date: 10/20/15 19:52:00 CDT Notes: (Same as:MORPhine Sulfate) Start Date: 10/20/15 Stop Date: 10/20/15 Status: Completed nitroglycerin 0.4 mg, 1 tab, Route: SL, Drug form: TAB, Q5Min, Dosing Weight 81.818, kg, PRN C hest Pain, Start date: 10/20/15 18:28:00 CDT, Duration: 3 doses or times, Stop d ate: Limited # of times Notes: (Same as:Nitroquick, Nitrostat)"Do Not Crush" Sublingual tablet Start Date: 10/20/15 Stop Date: 10/20/15 Status: Discontinued nitroglycerin 0.4 mg sublingual tablet 0.4 mg=1 tab, SL, Q5Min, PRN Chest Pain, # 100 tab, 0 Refill(s) Start Date: 10/25/15 Stop Date: 10/28/15 Status: Ordered nitroglycerin SL Tab 0.4 mg, 1 tab, Route: SL, Drug form: TAB, Q5Min, Dosing Weight 81.818, kg, PRN C hest Pain, Start date: 10/20/15 22:00:00 CDT, Duration: 30 day, Stop date: 11/18 21:59:00 CDT Notes: (Same as:Nitroquick, Nitrostat)"Do Not Crush" Sublingual tablet Start Date: 10/20/15 Stop Date: 10/28/15 Status: Discontinued [place] 5/325 oral tablet 1 tab, Route: PO, Drug Form: TAB, Dosing Weight 70.938, kg, Q4H, PRN Pain Score 1-3, Start date: 10/22/15 1:33:00 CDT, Duration: 30 day, Stop date: 11/21/15 1:3 2:00 CDT Notes: (Same as: [place] 325/5) Do not exceed 4gm/day of acetaminophen. Start Date: 10/22/15 Stop Date: 10/28/15 Status: Discontinued Norvasc 10 mg, 1 tab, Route: PO, Drug form: TAB, Daily, Dosing Weight 70.938, kg, Start date: 10/23/15 9:00:00 CDT, Duration: 30 day, Stop date: 11/21/15 9:00:00 CDT Notes: (Same as: Noryoni) Start Date: 10/23/15 Stop Date: 10/28/15 Status: Discontinued ondansetron 4 mg, 1 tab, Route: PO, Drug form: TAB, Q8H, Dosing Weight 81.818, kg, PRN Nause a & Vomiting, Start date: 10/20/15 22:00:00 CDT, Duration: 30 day, Stop date: 11/19/15 21:59:00 CDT Notes: (Same as: Savita) Start Date: 10/20/15 Stop Date: 10/28/15 Status: Discontinued Pepcid 20 mg oral tablet 20 mg=1 tab, PO, Daily, # 30 tab, 0 Refill(s) Start Date: 10/25/15 Stop Date: 11/24/15 Status: Ordered Saline Flush 0.9% 10 ml, Route: IVP, Drug Form: INJ, Dosing Weight 81.818, kg, Q12H, Start date: 0 10/21/15 9:00:00 CDT, Duration: 30 day, Stop date: 11/19/15 21:00:00 CDT Notes: Same as: BD Posiflush Sterile Start Date: 10/21/15 Stop Date: 10/28/15 Status: Discontinued Saline Flush 0.9% 10 ml, Route: IVP, Drug Form: INJ, Dosing Weight 81.818, kg, PRN, PRN Line Flush , Start date: 10/20/15 22:00:00 CDT, Duration: 30 day, Stop date: 11/19/15 21:59 :00 CDT Notes: Same as: BD Posiflush Sterile Start Date: 10/20/15 Stop Date: 10/28/15 Status: Discontinued Saline Flush 0.9% 10 mL, Route: IVP, Drug Form: INJ, Dosing Weight 81.818, kg, PRN, PRN Line Flush , Start date: 10/20/15 18:28:00 CDT, Duration: 30 day, Stop date: 11/19/15 18:27 :00 CDT Notes: Same as: BD Posiflush Sterile Start Date: 10/20/15 Stop Date: 10/20/15 Status: Discontinued Sodium Chloride 0.9% IV 1,000 mL, Route: IV, Start date: 10/25/15 14:23:00 CDT, Duration: 30 day, Stop d ate: 11/24/15 14:22:00 CDT, PRN Dialysis Start Date: 10/25/15 Stop Date: 10/28/15 Status: Discontinued Results ELECTROLYTES 1 2 3 Most recent to oldest [Reference Range]: 139 mEq/L (10/28/15 3:46 AM) 136 mEq/L (10/27/15 5:59 AM) 139 mEq/L (10/26/15 4:41 AM) Sodium Lvl [135-145 mEq/L] 5.5 mEq/L *HI* (10/28/15 3:46 AM) 5.8 mEq/L *HI* (10/27/15 5:59 AM) 5.1 mEq/L (10/26/15 4:41 AM) Potassium Lvl [3.5-5.1 mEq/L] 102 mEq/L (10/28/15 3:46 AM) 103 mEq/L (10/27/15 5:59 AM) 103 mEq/L (10/26/15 4:41 AM) Chloride Lvl [95-109 mEq/L] 27 mEq/L (10/28/15 3:46 AM) 26 mEq/L (10/27/15 5:59 AM) 29 mEq/L (10/26/15 4:41 AM) CO2 [24-32 mEq/L] 15.5 mEq/L (10/28/15 3:46 AM) 12.8 mEq/L (10/27/15 5:59 AM) 12.1 mEq/L (10/26/15 4:41 AM) AGAP [10.0-20.0 mEq/L] CHEM PANEL 1 2 3 Most recent to oldest [Reference Range]: 3.90 mg/dL *HI* (10/28/15 3:46 AM) 3.56 mg/dL *HI* (10/27/15 5:59 AM) 2.88 mg/dL *HI* (10/26/15 4:41 AM) Creatinine Lvl [0.50-1.40 mg/dL] 19 mL/min/1.73m2 1 *NA* (10/28/15 3:46 AM) 21 mL/min/1.73m2 2 *NA* (10/27/15 5:59 AM) 27 mL/min/1.73m2 3 *NA* (10/26/15 4:41 AM) eGFR 62 mg/dL *HI* (10/28/15 3:46 AM) 57 mg/dL *HI* (10/27/15 5:59 AM) 41 mg/dL *HI* (10/26/15 4:41 AM) BUN [7-22 mg/dL] 16 (10/28/15 3:46 AM) 21 (10/20/15 6:55 PM) B/C Ratio [6-25] 217 mg/dL *HI* (10/28/15 3:46 AM) 156 mg/dL *HI* (10/27/15 5:59 AM) 54 mg/dL *LOW* (10/26/15 4:41 AM) Glucose Lvl [70-99 mg/dL] 8.3 g/dL (10/28/15 3:46 AM) 8.0 g/dL (10/20/15 6:55 PM) Total Protein [6.4-8.4 g/dL] 2.8 g/dL *LOW* (10/28/15 3:46 AM) 2.5 g/dL *LOW* (10/20/15 6:55 PM) Albumin Lvl [3.5-5.0 g/dL] 5.5 g/dL *HI* (10/28/15 3:46 AM) 5.5 g/dL *HI* (10/20/15 6:55 PM) Globulin [2.0-4.0 g/dL] 0.5 *LOW* (10/28/15 3:46 AM) 0.5 *LOW* (10/20/15 6:55 PM) A/G Ratio [0.7-1.6] 8.4 mg/dL *LOW* (10/28/15 3:46 AM) 8.7 mg/dL (10/27/15 5:59 AM) 8.2 mg/dL *LOW* (10/26/15 4:41 AM) Calcium Lvl [8.5-10.5 mg/dL] 3.7 mg/dL (10/22/15 2:29 AM) Phosphorus [2.5-4.5 mg/dL] 1.8 mg/dL (10/22/15 2:29 AM) Magnesium Lvl [1.8-2.4 mg/dL] 46 unit/L (10/28/15 3:46 AM) 36 unit/L (10/20/15 6:55 PM) ALT [0-65 unit/L] 47 unit/L *HI* (10/28/15 3:46 AM) 29 unit/L (10/20/15 6:55 PM) AST [0-37 unit/L] 145 unit/L *HI* (10/28/15 3:46 AM) 124 unit/L (10/20/15 6:55 PM) Alk Phos [39-136 unit/L] 0.6 mg/dL (10/28/15 3:46 AM) 0.6 mg/dL (10/20/15 6:55 PM) Bili Total [0.2-1.3 mg/dL] 1Result Comment: [...] 3 Most recent to oldest [Reference Range]: 76 unit/L (10/24/15 1:01 PM) 81 unit/L (10/24/15 6:22 AM) 79 unit/L (10/21/15 5:02 AM) Total CK [12-191 unit/L] 8.2 ng/mL *HI* (10/24/15 1:01 PM) 10.3 ng/mL *HI* (10/24/15 6:22 AM) 8.6 ng/mL *HI* (10/21/15 5:02 AM) CK MB [0.5-3.6 ng/mL] 10.9 *HI* (10/21/15 5:02 AM) 10.2 *HI* (10/21/15 1:23 AM) 8.3 *HI* (10/20/15 6:55 PM) CK MB Index [0.0-2.5] 0.11 ng/mL (10/24/15 1:01 PM) 0.10 ng/mL (10/24/15 6:22 AM) 0.09 ng/mL (10/21/15 5:02 AM) Troponin-I [0.00-0.40 ng/mL] 1198 pg/mL *HI* (10/20/15 6:55 PM) BNP [<=100 pg/mL] LIPIDS 1 2 3 Most recent to oldest [Reference Range]: 2.11 *LOW* (10/21/15 5:02 AM) CHD Risk [4.00-7.30] 114 mg/dL (10/21/15 5:02 AM) Chol [<=199 mg/dL] 39 mg/dL (10/21/15 5:02 AM) Trig [<=149 mg/dL] 54 mg/dL *LOW* (10/21/15 5:02 AM) HDL [>=61 mg/dL] 52 mg/dL (10/21/15 5:02 AM) LDL (Calculated) [<=99 mg/dL] 8 *NA* (10/21/15 5:02 AM) VLDL DRUG SCREEN 1 2 3 Most recent to oldest [Reference Range]: Negative *NA* (10/21/15 1:23 AM) U Amph Scr [Negative] Negative *NA* (10/21/15 1:23 AM) U Dang Scr [Negative] Negative *NA* (10/21/15 1:23 AM) U Benzodia Scr [Negative] Positive *ABN* (10/21/15 1:23 AM) U Cocaine Scr [Negative] Positive *ABN* (10/21/15 1:23 AM) U Opiate Scr [Negative] Negative *NA* (10/21/15 1:23 AM) U Phencyc Scr [Negative] Negative *NA* (10/21/15 1:23 AM) U Cannab Scr [Negative] See Note (10/21/15 1:23 AM) UDS Note IMMUNOLOGY 1 2 3 Most recent to oldest [Reference Range]: Negative *NA* (10/21/15 11:35 AM) Hep Bs Ag [Negative] <3.1 mIU/mL (10/24/15 1:01 PM) Hep Bs Ab [<=7.4 mIU/mL] Negative *NA* (10/24/15 1:01 PM) Hep B Core Ab [Negative] HEMATOLOGY 1 2 3 Most recent to oldest [Reference Range]: 10.8 K/CMM *HI* (10/22/15 2:29 AM) 11.4 K/CMM *HI* (10/21/15 5:02 AM) 11.2 K/CMM *HI* (10/20/15 6:55 PM) WBC [3.7-10.4 K/CMM] 3.61 M/CMM *LOW* (10/22/15 2:29 AM) 3.67 M/CMM *LOW* (10/21/15 5:02 AM) 3.67 M/CMM *LOW* (10/20/15 6:55 PM) RBC [4.70-6.10 M/CMM] 9.5 g/dL *LOW* (10/22/15 2:29 AM) 9.5 g/dL *LOW* (10/21/15 5:02 AM) 9.6 g/dL *LOW* (10/20/15 6:55 PM) Hgb [14.0-18.0 g/dL] 30.0 % *LOW* (10/22/15 2:29 AM) 31.3 % *LOW* (10/21/15 5:02 AM) 30.8 % *LOW* (10/20/15 6:55 PM) Hct [42.0-54.0 %] 83.1 fL (10/22/15 2:29 AM) 85.4 fL (10/21/15 5:02 AM) 83.9 fL (10/20/15 6:55 PM) MCV [80.0-94.0 fL] 26.4 pg *LOW* (10/22/15 2:29 AM) 25.9 pg *LOW* (10/21/15 5:02 AM) 26.1 pg *LOW* (10/20/15 6:55 PM) MCH [27.0-31.0 pg] 31.8 g/dL *LOW* (10/22/15 2:29 AM) 30.3 g/dL *LOW* (10/21/15 5:02 AM) 31.1 g/dL *LOW* (10/20/15 6:55 PM) MCHC [32.0-36.0 g/dL] 17.2 % *HI* (10/22/15 2:29 AM) 17.5 % *HI* (10/21/15 5:02 AM) 17.6 % *HI* (10/20/15 6:55 PM) RDW [11.5-14.5 %] 197 K/CMM (10/22/15 2:29 AM) 199 K/CMM (10/21/15 5:02 AM) 225 K/CMM (10/20/15 6:55 PM) Platelet [133-450 K/CMM] 8.9 fL (10/22/15 2:29 AM) 8.7 fL (10/21/15 5:02 AM) 8.9 fL (10/20/15 6:55 PM) MPV [7.4-10.4 fL] 67.9 % (10/22/15 2:29 AM) 66.0 % (10/21/15 5:02 AM) 71.5 % (10/20/15 6:55 PM) Segs [45.0-75.0 %] 16.4 % *LOW* (10/22/15 2:29 AM) 16.5 % *LOW* (10/21/15 5:02 AM) 15.4 % *LOW* (10/20/15 6:55 PM) Lymphocytes [20.0-40.0 %] 7.4 % (10/22/15 2:29 AM) 11.0 % (10/21/15 5:02 AM) 8.4 % (10/20/15 6:55 PM) Monocytes [2.0-12.0 %] 8.0 % *HI* (10/22/15 2:29 AM) 5.9 % *HI* (10/21/15 5:02 AM) 3.9 % (10/20/15 6:55 PM) Eosinophils [0.0-4.0 %] 0.3 % (10/22/15 2:29 AM) 0.6 % (10/21/15 5:02 AM) 0.8 % (10/20/15 6:55 PM) Basophils [0.0-1.0 %] 7.4 K/CMM (10/22/15 2:29 AM) 7.5 K/CMM (10/21/15 5:02 AM) 8.0 K/CMM (10/20/15 6:55 PM) Segs-Bands # [1.5-8.1 K/CMM] 1.8 K/CMM (10/22/15 2:29 AM) 1.9 K/CMM (10/21/15 5:02 AM) 1.7 K/CMM (10/20/15 6:55 PM) Lymphocytes # [1.0-5.5 K/CMM] 0.8 K/CMM (10/22/15 2:29 AM) 1.3 K/CMM *HI* (10/21/15 5:02 AM) 0.9 K/CMM *HI* (10/20/15 6:55 PM) Monocytes # [0.0-0.8 K/CMM] 0.9 K/CMM *HI* (10/22/15 2:29 AM) 0.7 K/CMM *HI* (10/21/15 5:02 AM) 0.4 K/CMM (10/20/15 6:55 PM) Eosinophils # [0.0-0.5 K/CMM] 0.1 K/CMM (10/21/15 5:02 AM) 0.1 K/CMM (10/20/15 6:55 PM) Basophils # [0.0-0.2 K/CMM] 16.6 seconds *HI* (10/20/15 6:55 PM) PT [12.0-14.7 seconds] 1.31 *HI* (10/20/15 6:55 PM) INR [0.85-1.17] 32.9 seconds (10/20/15 6:55 PM) PTT [22.9-35.8 seconds] Immunizations Given and Recorded Vaccine Date Status Refusal Reason influenza virus vaccine, inactivated 05/15/15 Given influenza virus vaccine, inactivated 05/21/13 Given influenza virus vaccine, inactivated 04/12/12 Given pneumococcal 23-valent vaccine 05/15/15 Given pneumococcal 23-valent vaccine 04/12/12 Given Procedures No data available for this section [...] and Plan Extracted from: Title: Discharge Summary *template Author: Guanako Torres Date: 10/28/15 Discharge Information Home Care Instructions Notify Physician if any of the Following Occur : Bleeding, Fever, Nausea, Pain, Shortness of breath, Signs of infection, Swelling Guanako Torres MD - 10/28/2015 10:53 CDT Discharge Diet Home Diet : Diet Renal 80,2,2,1 (pro, sod, pot, phos) Fluid Restriction : Yes Fluid Restriction Amount : 1.5 Liters (50 ounces) Guanako Torres MD - 10/28/2015 10:53 CDT Physician Follow-Up v2 Follow-Up With Provider : physician, Non- physician MH Provider #1 : Erika Martinez MD Follow-Up Call : Call for appointment Follow-up with MH Provider within : 1 Week Reason : Follow Up On Treatment Non MH Provider #1 : [facility] Follow-Up Call : Call for appointment Follow-Up Within : 1 Week Reason : Establish Primary Care Physician Guanako Torres MD - 10/28/2015 10:53 CDT Discharge Plan Discharge Summary Plan Discharge Status: fair. Discharge instructions given: to patient. Discharge disposition: discharge to assisted facility. Prescriptions: written and given to patient. Education and Follow-up Counseled: patient. Extracted from: Title: General Admission H&P Author: Zunilda Vee Date: 10/20/15 Impression and Plan 1. Chest pain, rule out ACS Admit to obs / telemetry serial cardiac enzymes stat ekg prn chest pain nitro and morphine prn pain Cardiology consult for further assessment and recommendations 2. Hyperglycemia / poorly controlled diabetes mellitus / medication noncompliance high dose sliding scale insulin 3. Hypertension, stable resume home meds 4. Hyperkalemia / ESRD on HD patient received kayexalate, albuterol and insulin in the ED Nephrology has been consulted 5. Diastolic heart failure, likely due to hypertension vs undiagnosed coronary artery disease 6. Anemia, chronic; likely due to renal disease 7. History of polysubstance abuse / cocaine check UDS 8. Schizophrenia 9. Bipolar disorder 10. Medication non-compliance code: full
--- OUTSIDE RECORDS SUMMARY | 2018-05-16 23:39 | XMS REPORT | Summary of Care ---
Author Author [facility] Organization [facility] Address Unknown Phone Unavailable Encounter URIEL Ruiz(WILDER) [id number] Date(s): 08/08/16 - 08/19/16 [facility] [address] [place], [place] [id number]- [phone] Discharge Disposition: Home or Self Care Attending Physician: Donna Nj MD Admitting Physician: Donna Nj MD Vital Signs 1 2 3 Most recent to oldest [Reference Range]: 162.56 cm (08/11/16 11:25 AM) 162.56 cm (08/11/16 7:30 AM) 162.56 cm (08/11/16 3:16 AM) Height 54.5 kg (08/18/16 10:15 AM) 57.636 kg (08/17/16 5:00 AM) 50.6 kg (08/15/16 11:00 AM) Current Weight 98.7 DegF (08/10/16 10:00 AM) 98.5 DegF (08/10/16 7:33 AM) 98.5 DegF (08/10/16 4:20 AM) Temperature Oral [96.4-99.1 DegF] 118/68 mmHg (08/19/16 12:00 PM) 154/76 mmHg *HI* (08/19/16 7:59 AM) 136/71 mmHg (08/19/16 4:00 AM) Blood Pressure [90-140/60-90 mmHg] 16 BRMIN (08/19/16 12:00 PM) 16 BRMIN (08/19/16 7:59 AM) 20 BRMIN (08/19/16 4:00 AM) Respiratory Rate [14-20 BRMIN] 76 bpm (08/19/16 12:00 PM) 76 bpm (08/19/16 7:59 AM) 89 bpm (08/19/16 4:00 AM) Peripheral Pulse Rate [60-100 bpm] 57.739 kg (08/19/16 5:00 AM) 51.83 kg (08/18/16 5:00 AM) 52.739 kg (08/14/16 5:00 AM) Weight 22.53 m2 (08/08/16 9:21 AM) 23.22 m2 (08/08/16 6:32 AM) Body Mass Index Problem List Condition Effective Dates Status Health Status Informant Asthma(Confirmed) Resolved Bipolar(Confirmed) Active COPD(Confirmed) Active Diabetes Active mellitus(Confirmed) ESRD (end stage Active renal disease)(Confirmed) HTN - Active Hypertension(Confirm ed) Schizophrenia(Confir Active med) Allergies, Adverse Reactions, Alerts Substance Reaction Severity Status aspirin Active Tylenol1 Active 1pt states he swells up when he takes tylenol Medications Al hydroxide/Mg hydroxide/simethicone 200 mg-200 mg-20 mg/5 mL oral suspension 30 mL, Route: PO, Drug Form: SUSP, Dosing Weight 57.045, kg, Q4H, PRN Indigestio n, Start date: 08/09/16 12:32:00 CDT, Duration: 30 day, Stop date: 09/08/16 12:3 1:00 CDT Notes: (aluminum hydroxide-magnesium hyd-simethicone [phone]/5ml 30 ml ud S US) Start Date: 08/09/16 Stop Date: 08/19/16 Status: Discontinued albumin human 25% intravenous solution 25 gm, 100 mL, Route: IV, Drug form: INJ, ONCE, Dosing Weight 59.574, kg, Priori ty: STAT, Start date: 08/12/16 10:42:00 CDT, Stop date: 08/12/16 10:42:00 CDT Notes: LOT#: Mfg: WASTE: F/P - Red; E -Red (Same a s: Albuminar)"blood product derivative" Start Date: 08/12/16 Stop Date: 08/12/16 Status: Completed amLODIPine 5 mg, 1 tab, Route: PO, Drug form: TAB, Daily, Dosing Weight 59.545, kg, Start d ate: 08/09/16 9:00:00 CDT, Stop date: 09/07/16 9:00:00 CDT Notes: (Same as: Norvasc) Start Date: 08/09/16 Stop Date: 08/19/16 Status: Discontinued BD Normal Saline Flush 10 mL, Route: IVP, Drug Form: INJ, PRN, PRN Line Flush, Start date: 08/08/16 6:5 7:00 CDT, Duration: 30 day, Stop date: 09/07/16 6:56:00 CDT Notes: (Same as: BD Posiflush) Start Date: 08/08/16 Stop Date: 08/10/16 Status: Discontinued bisacodyl 10 mg, 1 supp, Route: SC, Drug form: SUPP, Daily, Dosing Weight 57.045, kg, PRN Constipation, Start date: 08/09/16 12:32:00 CDT, Duration: 30 day, Stop date: 12:31:00 CDT Notes: (Same As: Dulcolax, Bisco-Lax) Start Date: 08/09/16 Stop Date: 08/19/16 Status: Discontinued calcium carbonate 500 mg (200 mg elemental calcium) oral tablet 500 mg, Route: PO, PRN, Dosing Weight 59.574, kg, PRN Abnormal Lab Result, FOR I CU USE ONLY, Start date: 08/10/16 16:55:00 CDT, Duration: 30 day, Stop date: 16:54:00 CDT Start Date: 08/10/16 Stop Date: 08/10/16 Status: Discontinued calcium carbonate 500 mg (200 mg elemental calcium) oral tablet 1,000 mg, Route: PO, PRN, Dosing Weight 59.574, kg, PRN Abnormal Lab Result, FOR ICU USE ONLY, Start date: 08/10/16 16:55:00 CDT, Duration: 30 day, Stop date: 0 09/09/16 16:54:00 CDT Start Date: 08/10/16 Stop Date: 08/10/16 Status: Discontinued calcium chloride + sodium chloride 0.9% INJ 100 mL 1,000 mg, 10 mL, Route: IVPB, ONCE, Dosing Weight 59.574, kg, Start date: 19:24:00 CDT, Stop date: 08/10/16 19:24:00 CDT Notes: WASTE: F/P - Sink; E - Municipal Trash Bin Start Date: 08/10/16 Stop Date: 08/10/16 Status: Completed calcium gluconate 1 gm, Route: IVPB, PRN, Dosing Weight 59.574, kg, PRN Abnormal Lab Result, Start date: 08/10/16 16:55:00 CDT, Duration: 30 day, Stop date: 09/09/16 16:54:00 CDT, FOR ICU USE ONLY Start Date: 08/10/16 Stop Date: 08/10/16 Status: Discontinued calcium gluconate + sodium chloride 0.9% INJ 250 mL 4,000 mg, 40 mL, Route: IVPB, Drug form: INJ, ONCE, Dosing Weight 59.574, kg, Pr iority: STAT, Start date: 08/12/16 10:42:00 CDT, Stop date: 08/12/16 10:42:00 CD T Notes: WASTE: F/P - Sink; E - Municipal Trash Bin Start Date: 08/12/16 Stop Date: 08/12/16 Status: Completed carvedilol 3.125 mg, 1 tab, Route: PO, Drug form: TAB, Q12H, Dosing Weight 59.545, kg, Star t date: 08/08/16 21:00:00 CDT, Duration: 30 day, Stop date: 09/07/16 9:00:00 CDT Notes: Give with food. (Same As: Coreg) Start Date: 08/08/16 Stop Date: 08/19/16 Status: Discontinued ceFAZolin 2 gm, 100 mL, Route: IVPB, Drug form: INJ, ONCALL, Dosing Weight 57.045, kg, Sta rt date: 08/09/16 21:00:00 CDT, Duration: 30 day, Stop date: 09/08/16 20:59:00 C DT Notes: Same as: Ancef Start Date: 08/09/16 Stop Date: 08/10/16 Status: Discontinued cefepime + sodium chloride 0.9% INJ 100 mL 1 gm, Route: IVPB, [id number], Dosing Weight 59.574, kg, (CrCl 10 - 29 ml/min), Sta rt date: 08/11/16 11:00:00 CDT, Duration: 30 day, Stop date: 09/09/16 11:00:00 C DT Notes: (Same As: Maryam) MEDICATION WASTE Product Size: 1000 mgProduc t Wasted: ___ mg Start Date: 08/11/16 Stop Date: 08/17/16 Status: Discontinued cloNIDine 0.1 mg oral tablet 0.1 mg, 1 tab, Route: PO, Drug form: TAB, TID, Dosing Weight 59.545, kg, Start d ate: 08/08/16 17:00:00 CDT, Duration: 30 day, Stop date: 09/07/16 13:00:00 CDT Notes: (Same As: Diego) Start Date: 08/08/16 Stop Date: 08/12/16 Status: Discontinued cloNIDine 0.1 mg oral tablet 0.1 mg, 1 tab, Route: PO, Drug form: TAB, BID, Dosing Weight 59.545, kg, Start d ate: 08/12/16 17:00:00 CDT, Duration: 30 day, Stop date: 09/11/16 9:00:00 CDT Notes: (Same As: Diego) Start Date: 08/12/16 Stop Date: 08/19/16 Status: Discontinued D5W 1,000 mL 1,000 mL, Rate: 50 ml/hr, Infuse over: 20 hr, Route: IV, Dosing Weight 52.739 kg , Total Volume: 1,000, Start date: 08/16/16 22:16:00 CDT, Duration: 30 day, Stop date: 09/15/16 22:15:00 CDT Start Date: 08/16/16 Stop Date: 08/17/16 Status: Discontinued dexmedetomidine INJ 200 microgram + sodium chloride 0.9% INJ 48 mL 200 microgram, 2 mL, Rate: Titrate, Start Dose: 0.2 microgram/kg/hr, Titration: 0.1 microgram/kg/hr every 30 min, Goal(s): RASS 0 to -1, Max Dose: 1.5 microgram /kg/hr, Route: IV, Dosing Weight 59.574 kg, Total Volume: 50, Start date: 17:26:00... Notes: Not for use > 24 hours Start Date: 08/10/16 Stop Date: 08/17/16 Status: Discontinued dextromethorphan-guaiFENesin 10 mg-100 mg/5 mL oral liquid 10 mL, Route: PO, Drug Form: SYRP, Dosing Weight 57.045, kg, Q4H, PRN Cough, Sta rt date: 08/09/16 12:32:00 CDT, Duration: 30 day, Stop date: 09/08/16 12:31:00 C DT Notes: (dextromethorphan-guaifenesin 10-100mg/5ml 10 ml oral SOLN ud) (Same as: Robitussin DM) Start Date: 08/09/16 Stop Date: 08/19/16 Status: Discontinued Dextrose 50% Syringe 25 gm, 50 mL, Route: IVP, Drug Form: INJ, Dosing Weight 52.739, kg, PRN, PRN Blo od Glucose Results, Start date: 08/16/16 12:20:00 CDT, Duration: 30 day, Stop da te: 09/15/16 12:19:00 CDT Start Date: 08/16/16 Stop Date: 08/19/16 Status: Discontinued Dextrose 50% Syringe 12.5 gm, 25 mL, Route: IVP, Drug Form: INJ, Dosing Weight 52.739, kg, PRN, PRN B lood Glucose Results, Start date: 08/16/16 12:20:00 CDT, Duration: 30 day, Stop date: 09/15/16 12:19:00 CDT Start Date: 08/16/16 Stop Date: 08/19/16 Status: Discontinued Dextrose 50% Syringe 25 gm, 50 mL, Route: IVP, Drug Form: INJ, Dosing Weight 61.364, kg, PRN, PRN Blo od Glucose Results, Start date: 08/08/16 8:22:00 CDT, Duration: 30 day, Stop adrian e: 09/07/16 8:21:00 CDT Start Date: 08/08/16 Stop Date: 08/14/16 Status: Discontinued Dextrose 50% Syringe 12.5 gm, 25 mL, Route: IVP, Drug Form: INJ, Dosing Weight 61.364, kg, PRN, PRN B lood Glucose Results, Start date: 08/08/16 8:22:00 CDT, Duration: 30 day, Stop d ate: 09/07/16 8:21:00 CDT Start Date: 08/08/16 Stop Date: 08/14/16 Status: Discontinued Dextrose 50% Syringe 12.5 gm, 25 mL, Route: IVP, Drug Form: INJ, Dosing Weight 52.739, kg, PRN, PRN B lood Glucose Results, Start date: 08/14/16 16:07:00 CDT, Duration: 30 day, Stop date: 09/13/16 16:06:00 CDT Start Date: 08/14/16 Stop Date: 08/17/16 Status: Discontinued Dextrose 50% Syringe 25 gm, 50 mL, Route: IVP, Drug Form: INJ, Dosing Weight 52.739, kg, PRN, PRN Blo od Glucose Results, Start date: 08/14/16 16:07:00 CDT, Duration: 30 day, Stop da te: 09/13/16 16:06:00 CDT Start Date: 08/14/16 Stop Date: 08/16/16 Status: Discontinued diphenhydrAMINE 25 mg, 1 cap, Route: PO, Drug form: CAP, Q6H, Dosing Weight 57.045, kg, PRN Itch ing, Start date: 08/09/16 12:32:00 CDT, Duration: 30 day, Stop date: 09/08/16 12 :31:00 CDT Notes: (Same as: Benadryl) Start Date: 08/09/16 Stop Date: 08/19/16 Status: Discontinued docusate sodium 100 mg oral capsule 100 mg, 1 cap, Route: PO, Drug form: CAP, BID, Dosing Weight 59.574, kg, Start d ate: 08/10/16 17:00:00 CDT, Stop date: 09/09/16 9:00:00 CDT Notes: (Same as: Colace) (Do Not Crush) Start Date: 08/10/16 Stop Date: 08/19/16 Status: Discontinued Dulcolax Laxative 5 mg, 1 tab, Route: PO, Drug form: ECTAB, Q24H, Dosing Weight 59.574, kg, PRN Co nstipation, Start date: 08/10/16 16:32:00 CDT, Duration: 30 day, Stop date: 08/27 07/13 16:31:00 CDT Notes: (Same As: Dulcolax, Correctol) (Do Not Crush) "Do Not Crush" Start Date: 08/10/16 Stop Date: 08/19/16 Status: Discontinued DuoNeb inhalation solution 3 mL, Route: NEB, Drug Form: SOLN, Dosing Weight 59.545, kg, QID, Start date: 17:00:00 CDT, Duration: 30 day, Stop date: 09/07/16 13:00:00 CDT Notes: (Same as: Duoneb) Start Date: 08/08/16 Stop Date: 08/19/16 Status: Discontinued emollients, topical ointment 1 appl, Route: TOP, BID, Drug form: LOT, PRN Dry Skin, Start date: 08/08/16 11:0 0:00 CDT, Duration: 30 day, Stop date: 09/07/16 10:59:00 CDT Notes: (mineral oil,petrolatum,lanolin,triethanolamine 180ml LOT)(Same as:Lubrid erm Lotion) Start Date: 08/08/16 Stop Date: 08/19/16 Status: Discontinued ePHEDrine (ANES) Route: IV, Drug form: INJ, ONCE, Stop date: 08/10/16 16:06:00 CDT Start Date: 08/10/16 Stop Date: 08/10/16 Status: Completed fentaNYL (ANES) Route: IV, Drug form: INJ, ONCE, Stop date: 08/10/16 15:26:00 CDT Start Date: 08/10/16 Stop Date: 08/10/16 Status: Completed Flagyl 500 mg, 1 tab, Route: PO, Drug form: TAB, ABXQ8H, Dosing Weight 52.739, kg, Star t date: 08/17/16 9:00:00 CDT, Duration: 7 day, Stop date: 08/24/16 1:00:00 CDT, ABX Indication: Pneumonia Notes: (Same as: Flagyl) Take with food/ avoid alcohol Start Date: 08/17/16 Stop Date: 08/19/16 Status: Discontinued Flagyl 500 mg, 100 mL, Route: IVPB, Drug form: INJ, ABXQ8H, Dosing Weight 59.574, kg, S tart date: 08/11/16 11:00:00 CDT, Duration: 30 day, Stop date: 09/10/16 3:00:00 CDT Notes: (Same as: Flagyl) Avoid alcohol. Start Date: 08/11/16 Stop Date: 08/17/16 Status: Discontinued Flagyl 500 mg oral tablet 500 mg=1 tab, PO, Q8H, X 5 day, # 15 tab, 0 Refill(s) Start Date: 08/19/16 Stop Date: 08/24/16 Status: Ordered glucagon 1 mg, Route: IM, Drug form: PDR/INJ, PRN, Dosing Weight 52.739, kg, PRN Blood Gl ucose Results, Start date: 08/16/16 12:20:00 CDT, Duration: 30 day, Stop date: 0 09/15/16 12:19:00 CDT Start Date: 08/16/16 Stop Date: 08/19/16 Status: Discontinued glucagon 1 mg, Route: IM, Drug form: PDR/INJ, PRN, Dosing Weight 61.364, kg, PRN Blood Gl ucose Results, Start date: 08/08/16 8:22:00 CDT, Duration: 30 day, Stop date: 8:21:00 CDT Start Date: 08/08/16 Stop Date: 08/14/16 Status: Discontinued glucagon 1 mg, Route: IM, Drug form: PDR/INJ, PRN, Dosing Weight 52.739, kg, PRN Blood Gl ucose Results, Start date: 08/14/16 16:07:00 CDT, Duration: 30 day, Stop date: 0 09/13/16 16:06:00 CDT Start Date: 08/14/16 Stop Date: 08/16/16 Status: Discontinued glyBURIDE 5 mg, 1 tab, Route: PO, Drug form: TAB, Daily, Dosing Weight 59.545, kg, Start d ate: 08/09/16 9:00:00 CDT, Duration: 30 day, Stop date: 09/07/16 9:00:00 CDT Notes: Non-Formulary(Same as: Micronase, Diabeta) Take with meals. Start Date: 08/09/16 Stop Date: 08/19/16 Status: Discontinued Haldol 2 mg, 0.4 mL, Route: IVP, Drug form: INJ, Q4H, Dosing Weight 59.574, kg, PRN Supriya tation, Start date: 08/10/16 17:01:00 CDT, Duration: 2 day, Stop date: 08/12/16 17:00:00 CDT Notes: (Same as: Haldol) Start Date: 08/10/16 Stop Date: 08/12/16 Status: Completed hydrALAZINE 100 mg oral tablet 25 mg, Route: PO, Drug form: TAB, Q12H, Dosing Weight 57.045, kg, Start date: 21:00:00 CDT, Duration: 30 day, Stop date: 09/11/16 9:00:00 CDT Start Date: 08/12/16 Stop Date: 08/19/16 Status: Discontinued hydrALAZINE 100 mg oral tablet 100 mg, 1 tab, Route: PO, Drug form: TAB, Q12H, Dosing Weight 57.045, kg, Start date: 08/09/16 21:00:00 CDT, Duration: 30 day, Stop date: 09/08/16 9:00:00 CDT Notes: (Same as: Apresoline) May interfere w/enteral feedings - Take With Food Start Date: 08/09/16 Stop Date: 08/12/16 Status: Discontinued hydrALAZINE 25 mg oral tablet 50 mg, 2 tab, Route: PO, Drug form: TAB, TID, Dosing Weight 59.545, kg, Start da te: 08/08/16 17:00:00 CDT, Duration: 30 day, Stop date: 09/07/16 13:00:00 CDT Notes: (Same as: Apresoline) May interfere w/enteral feedings Take With Food. Start Date: 08/08/16 Stop Date: 08/09/16 Status: Discontinued hydromorphone 2 mg, 2 mL, Route: IVP, Drug form: INJ, ONCE, Dosing Weight 59.574, kg, Priority : STAT, Start date: 08/10/16 16:57:00 CDT, Stop date: 08/10/16 16:57:00 CDT Start Date: 08/10/16 Stop Date: 08/10/16 Status: Completed hydromorphone 1 mg, 1 mL, Route: IVP, Drug form: INJ, Q3H, Dosing Weight 59.574, kg, PRN Pain Score 7-10, Start date: 08/10/16 16:57:00 CDT, Duration: 1 day, Stop date: 08/11 16:56:00 CDT Start Date: 08/10/16 Stop Date: 08/11/16 Status: Completed insulin aspart 5 unit, 0.05 mL, Route: SUB-Q, Drug form: SOLN, Q8H, Dosing Weight 52.739, kg, S tart date: 08/17/16 16:00:00 CDT, Duration: 30 day, Stop date: 09/16/16 8:00:00 CDT Notes: Roll in palms of hands gently; Do not shake vigorously. (Same as: Tesfaye Mccray)"single patient use only"WASTE: F/P - Black; E - Municipal Trash Bin Stable f or 28 days at room temperature.Expires in days from Date Start Date: 08/17/16 Stop Date: 08/19/16 Status: Discontinued insulin aspart 7 unit, Route: SUB-Q, Drug form: SOLN, Q8H, Dosing Weight 52.739, kg, Start date : 08/17/16 16:00:00 CDT, Duration: 30 day, Stop date: 09/16/16 8:00:00 CDT Start Date: 08/17/16 Stop Date: 08/17/16 Status: Canceled insulin aspart 8 unit, 0.08 mL, Route: SUB-Q, Drug form: SOLN, Q8H, Dosing Weight 52.739, kg, S tart date: 08/16/16 16:00:00 CDT, Duration: 30 day, Stop date: 09/15/16 8:00:00 CDT Notes: Roll in palms of hands gently; Do not shake vigorously. (Same as: Tesfaye Mccray)"single patient use only"WASTE: F/P - Black; E - Municipal Trash Bin Stable f or 28 days at room temperature.Expires in days from Date Start Date: 08/16/16 Stop Date: 08/16/16 Status: Canceled insulin aspart 4 unit, 0.04 mL, Route: SUB-Q, Drug form: SOLN, Bedtime, Dosing Weight 61.364, k g, PRN Blood Glucose Results, Start date: 08/08/16 8:22:00 CDT, Duration: 30 day , Stop date: 09/07/16 8:21:00 CDT Notes: Roll in palms of hands gently; Do not shake vigorously. (Same as: Tesfaye Mccray)"single patient use only"WASTE: F/P - Black; E - Municipal Trash Bin Stable f or 28 days at room temperature.Expires in days from Date Start Date: 08/08/16 Stop Date: 08/19/16 Status: Discontinued insulin aspart 1 unit, 0.01 mL, Route: SUB-Q, Drug form: SOLN, Bedtime, Dosing Weight 61.364, k g, PRN Blood Glucose Results, Start date: 08/08/16 8:22:00 CDT, Duration: 30 day , Stop date: 09/07/16 8:21:00 CDT Notes: Roll in palms of hands gently; Do not shake vigorously. (Same as: Tesfaye Mccray)"single patient use only"WASTE: F/P - Black; E - Municipal Trash Bin Stable f or 28 days at room temperature.Expires in days from Date Start Date: 08/08/16 Stop Date: 08/19/16 Status: Discontinued insulin aspart 2 unit, 0.02 mL, Route: SUB-Q, Drug form: SOLN, Bedtime, Dosing Weight 61.364, k g, PRN Blood Glucose Results, Start date: 08/08/16 8:22:00 CDT, Duration: 30 day , Stop date: 09/07/16 8:21:00 CDT Notes: Roll in palms of hands gently; Do not shake vigorously. (Same as: Tesfaye Mccray)"single patient use only"WASTE: F/P - Black; E - Municipal Trash Bin Stable f or 28 days at room temperature.Expires in days from Date Start Date: 08/08/16 Stop Date: 08/19/16 Status: Discontinued insulin aspart 3 unit, 0.03 mL, Route: SUB-Q, Drug form: SOLN, Bedtime, Dosing Weight 61.364, k g, PRN Blood Glucose Results, Start date: 08/08/16 8:22:00 CDT, Duration: 30 day , Stop date: 09/07/16 8:21:00 CDT Notes: Roll in palms of hands gently; Do not shake vigorously. (Same as: Tesfaye Mccray)"single patient use only"WASTE: F/P - Black; E - Municipal Trash Bin Stable f or 28 days at room temperature.Expires in days from Date Start Date: 08/08/16 Stop Date: 08/19/16 Status: Discontinued insulin aspart 6 unit, 0.06 mL, Route: SUB-Q, Drug form: SOLN, TID-Before Meals, Dosing Weight 61.364, kg, PRN Blood Glucose Results, Start date: 08/08/16 8:22:00 CDT, Duratio n: 30 day, Stop date: 09/07/16 8:21:00 CDT Notes: Roll in palms of hands gently; Do not shake vigorously. (Same as: Tesfaye Mccray)"single patient use only"WASTE: F/P - Black; E - Municipal Trash Bin Stable f or 28 days at room temperature.Expires in days from Date Start Date: 08/08/16 Stop Date: 08/14/16 Status: Discontinued insulin aspart 8 unit, 0.08 mL, Route: SUB-Q, Drug form: SOLN, TID-Before Meals, Dosing Weight 61.364, kg, PRN Blood Glucose Results, Start date: 08/08/16 8:22:00 CDT, Duratio n: 30 day, Stop date: 09/07/16 8:21:00 CDT Notes: Roll in palms of hands gently; Do not shake vigorously. (Same as: NovoTHAO Mccray)"single patient use only"WASTE: F/P - Black; E - Municipal Trash Bin Stable f or 28 days at room temperature.Expires in days from Date Start Date: 08/08/16 Stop Date: 08/14/16 Status: Discontinued insulin aspart 10 unit, 0.1 mL, Route: SUB-Q, Drug form: SOLN, TID-Before Meals, Dosing Weight 61.364, kg, PRN Blood Glucose Results, Start date: 08/08/16 8:22:00 CDT, Duratio n: 30 day, Stop date: 09/07/16 8:21:00 CDT Notes: Roll in palms of hands gently; Do not shake vigorously. (Same as: NovoTHAO Mccray)"single patient use only"WASTE: F/P - Black; E - Municipal Trash Bin Stable f or 28 days at room temperature.Expires in days from Date Start Date: 08/08/16 Stop Date: 08/14/16 Status: Discontinued insulin aspart 2 unit, 0.02 mL, Route: SUB-Q, Drug form: SOLN, TID-Before Meals, Dosing Weight 61.364, kg, PRN Blood Glucose Results, Start date: 08/08/16 8:22:00 CDT, Duratio n: 30 day, Stop date: 09/07/16 8:21:00 CDT Notes: Roll in palms of hands gently; Do not shake vigorously. (Same as: NovoTHAO Mccray)"single patient use only"WASTE: F/P - Black; E - Municipal Trash Bin Stable f or 28 days at room temperature.Expires in days from Date Start Date: 08/08/16 Stop Date: 08/14/16 Status: Discontinued insulin aspart 4 unit, 0.04 mL, Route: SUB-Q, Drug form: SOLN, TID-Before Meals, Dosing Weight 61.364, kg, PRN Blood Glucose Results, Start date: 08/08/16 8:22:00 CDT, Duratio n: 30 day, Stop date: 09/07/16 8:21:00 CDT Notes: Roll in palms of hands gently; Do not shake vigorously. (Same as: Tesfaye Mccray)"single patient use only"WASTE: F/P - Black; E - Municipal Trash Bin Stable f or 28 days at room temperature.Expires in days from Date Start Date: 08/08/16 Stop Date: 08/14/16 Status: Discontinued insulin aspart 3 unit, 0.03 mL, Route: SUB-Q, Drug form: SOLN, TID-Before Meals, Dosing Weight 52.739, kg, PRN Blood Glucose Results, Start date: 08/14/16 16:07:00 CDT, Durati on: 30 day, Stop date: 09/13/16 16:06:00 CDT Notes: Roll in palms of hands gently; Do not shake vigorously. (Same as: Tesfaye Mccray)"single patient use only"WASTE: F/P - Black; E - Municipal Trash Bin Stable f or 28 days at room temperature.Expires in days from Date Start Date: 08/14/16 Stop Date: 08/19/16 Status: Discontinued insulin aspart 6 unit, 0.06 mL, Route: SUB-Q, Drug form: SOLN, TID-Before Meals, Dosing Weight 52.739, kg, PRN Blood Glucose Results, Start date: 08/14/16 16:07:00 CDT, Durati on: 30 day, Stop date: 09/13/16 16:06:00 CDT Notes: Roll in palms of hands gently; Do not shake vigorously. (Same as: Tesfaye Mccray)"single patient use only"WASTE: F/P - Black; E - Municipal Trash Bin Stable f or 28 days at room temperature.Expires in days from Date Start Date: 08/14/16 Stop Date: 08/19/16 Status: Discontinued insulin aspart 9 unit, 0.09 mL, Route: SUB-Q, Drug form: SOLN, TID-Before Meals, Dosing Weight 52.739, kg, PRN Blood Glucose Results, Start date: 08/14/16 16:07:00 CDT, Durati on: 30 day, Stop date: 09/13/16 16:06:00 CDT Notes: Roll in palms of hands gently; Do not shake vigorously. (Same as: Tesfaye Mccray)"single patient use only"WASTE: F/P - Black; E - Municipal Trash Bin Stable f or 28 days at room temperature.Expires in days from Date Start Date: 08/14/16 Stop Date: 08/19/16 Status: Discontinued insulin aspart 12 unit, 0.12 mL, Route: SUB-Q, Drug form: SOLN, TID-Before Meals, Dosing Weight 52.739, kg, PRN Blood Glucose Results, Start date: 08/14/16 16:07:00 CDT, Durat ion: 30 day, Stop date: 09/13/16 16:06:00 CDT Notes: Roll in palms of hands gently; Do not shake vigorously. (Same as: Tesfaye Mccray)"single patient use only"WASTE: F/P - Black; E - Municipal Trash Bin Stable f or 28 days at room temperature.Expires in days from Date Start Date: 08/14/16 Stop Date: 08/19/16 Status: Discontinued insulin aspart 15 unit, 0.15 mL, Route: SUB-Q, Drug form: SOLN, TID-Before Meals, Dosing Weight 52.739, kg, PRN Blood Glucose Results, Start date: 08/14/16 16:07:00 CDT, Durat ion: 30 day, Stop date: 09/13/16 16:06:00 CDT Notes: Roll in palms of hands gently; Do not shake vigorously. (Same as: Tesfaye Mccray)"single patient use only"WASTE: F/P - Black; E - Municipal Trash Bin Stable f or 28 days at room temperature.Expires in days from Date Start Date: 08/14/16 Stop Date: 08/19/16 Status: Discontinued insulin aspart 10 unit, 0.1 mL, Route: SUB-Q, Drug form: SOLN, Q8H, Dosing Weight 52.739, kg, S tart date: 08/16/16 16:00:00 CDT, Duration: 30 day, Stop date: 09/15/16 8:00:00 CDT Notes: Roll in palms of hands gently; Do not shake vigorously. (Same as: Tesfaye Mccray)"single patient use only"WASTE: F/P - Black; E - Municipal Trash Bin Stable f or 28 days at room temperature.Expires in days from Date Start Date: 08/16/16 Stop Date: 08/17/16 Status: Discontinued Isolyte S (PH 7.4) 1000 mL (ANES) Route: IV, Total Volume: 1,000, Start date: 08/10/16 14:03:00 CDT, Stop date: 15:03:00 CDT Start Date: 08/10/16 Stop Date: 08/10/16 Status: Completed isosorbide mononitrate 30 mg, 1 tab, Route: PO, Drug form: ERTAB, QAM, Dosing Weight 59.545, kg, Start date: 08/13/16 9:00:00 CDT, Duration: 30 day, Stop date: 09/11/16 9:00:00 CDT Notes: (Same as:Imdur)"Do Not Crush" Take on empty stomach/ full glass of water . Do not crush Start Date: 08/13/16 Stop Date: 08/19/16 Status: Discontinued isosorbide mononitrate 120 mg, 2 tab, Route: PO, Drug form: ERTAB, QAM, Dosing Weight 59.545, kg, Start date: 08/09/16 9:00:00 CDT, Duration: 30 day, Stop date: 09/07/16 9:00:00 CDT Notes: (Same as:Imdur)"Do Not Crush" Take on empty stomach/ full glass of water . Do not crush Start Date: 08/09/16 Stop Date: 08/12/16 Status: Discontinued labetalol 10 mg, 2 mL, Route: IVP, Drug form: INJ, Q6H, Dosing Weight 61.364, kg, PRN See Nurse's Notes, Start date: 08/08/16 9:24:00 CDT, Duration: 30 day, Stop date: 9:23:00 CDT Notes: (Same as: NormodynHawa fernandezdasanjuanita)Push over 2 minutes Give bolus over 2-3 mi nutes. Start Date: 08/08/16 Stop Date: 08/19/16 Status: Discontinued Levemir 10 unit, 0.1 mL, Route: SUB-Q, Drug form: INJ, BID, Dosing Weight 52.739, kg, St art date: 08/16/16 9:00:00 CDT, Duration: 30 day, Stop date: 09/14/16 17:00:00 C DT Notes: Same as LevemirDo not hold insulin without contacting prescriberWASTE: F/ P - Black; E - [facility] Trash [facility] "single patient use only" Start Date: 08/16/16 Stop Date: 08/16/16 Status: Discontinued Levemir 15 unit, 0.15 mL, Route: SUB-Q, Drug form: INJ, BID, Dosing Weight 52.739, kg, S tart date: 08/16/16 17:00:00 CDT, Duration: 30 day, Stop date: 09/15/16 9:00:00 CDT Notes: Same as LevemirDo not hold insulin without contacting prescriberWASTE: F/ P - Black; E - [facility] Trash [facility] "single patient use only" Start Date: 08/16/16 Stop Date: 08/17/16 Status: Discontinued Levemir 6 unit, 0.06 mL, Route: SUB-Q, Drug form: INJ, Bedtime, Dosing Weight 52.739, kg , Start date: 08/17/16 21:00:00 CDT, Duration: 30 day, Stop date: 09/15/16 21:00 :00 CDT Notes: Same as LevemirDo not hold insulin without contacting prescriberWASTE: F/ P - Black; E - [facility] Trash [facility] "single patient use only" Start Date: 08/17/16 Stop Date: 08/17/16 Status: Canceled Levemir 8 unit, 0.08 mL, Route: SUB-Q, Drug form: INJ, QAM, Dosing Weight 52.739, kg, St art date: 08/18/16 9:00:00 CDT, Duration: 30 day, Stop date: 09/16/16 9:00:00 CD T Notes: Same as LevemirDo not hold insulin without contacting prescriberWASTE: F/ P - Black; E - [facility] Trash [facility] "single patient use only" Start Date: 08/18/16 Stop Date: 08/19/16 Status: Discontinued Levemir 10 unit, 0.1 mL, Route: SUB-Q, Drug form: INJ, QAM, Dosing Weight 52.739, kg, St art date: 08/17/16 9:00:00 CDT, Duration: 30 day, Stop date: 09/15/16 9:00:00 CD T Notes: Same as LevemirDo not hold insulin without contacting prescriberWASTE: F/ P Coty Barros; E [employer] Trash Bin "single patient use only" Start Date: 08/17/16 Stop Date: 08/17/16 Status: Discontinued lisinopril 40 mg, 2 tab, Route: PO, Drug form: TAB, Daily, Dosing Weight 59.545, kg, Start date: 08/09/16 9:00:00 CDT, Duration: 30 day, Stop date: 09/07/16 9:00:00 CDT Notes: (Same as: Ceci Mccormickril) Start Date: 08/09/16 Stop Date: 08/12/16 Status: Discontinued lisinopril 10 mg, Route: PO, Drug form: TAB, Daily, Dosing Weight 59.545, kg, Start date: 0 08/13/16 9:00:00 CDT, Duration: 30 day, Stop date: 09/11/16 9:00:00 CDT Start Date: 08/13/16 Stop Date: 08/19/16 Status: Discontinued lisinopril 10 mg oral tablet 10 mg=1 tab, PO, Daily, # 90 tab, 1 Refill(s) Start Date: 08/19/16 Status: Ordered Lovenox 30 mg, 0.3 mL, Route: SUB-Q, Drug form: INJ, Daily, Dosing Weight 61.364, kg, St art date: 08/08/16 11:00:00 CDT, Duration: 30 day, Stop date: 09/06/16 11:00:00 CDT Notes: (Same as: Lovenox) Start Date: 08/08/16 Stop Date: 08/19/16 Status: Discontinued magnesium oxide 800 mg, Route: PO, PRN, Dosing Weight 59.574, kg, PRN Abnormal Lab Result, FOR I CU USE ONLY, Start date: 08/10/16 16:55:00 CDT, Duration: 30 day, Stop date: 16:54:00 CDT Start Date: 08/10/16 Stop Date: 08/10/16 Status: Discontinued magnesium sulfate 2 gm, Route: IVPB, PRN, Dosing Weight 59.574, kg, PRN Abnormal Lab Result, Start date: 08/10/16 16:55:00 CDT, Duration: 30 day, Stop date: 09/09/16 16:54:00 CDT, FOR ICU USE ONLY Start Date: 08/10/16 Stop Date: 08/10/16 Status: Discontinued midazolam (ANES) Route: IV, Drug form: SOLN, ONCE, Stop date: 08/10/16 15:26:00 CDT Start Date: 08/10/16 Stop Date: 08/10/16 Status: Completed morphine Sulfate 1 mg, 0.5 mL, Route: IVP, Drug form: INJ, Q4H, Dosing Weight 52.278, kg, PRN Gregorio n Score 7-10, Start date: 08/13/16 9:30:00 CDT, Stop date: 09/12/16 9:29:00 CDT Notes: (Same as:MORPhine Sulfate) Start Date: 08/13/16 Stop Date: 08/19/16 Status: Discontinued morphine Sulfate (ANES) Route: IV, Drug form: INJ, ONCE, Stop date: 08/10/16 16:23:00 CDT Start Date: 08/10/16 Stop Date: 08/10/16 Status: Completed nitroglycerin 0.4 mg sublingual tablet 0.4 mg, 1 tab, Route: SL, Drug form: TAB, Q5Min, Dosing Weight 59.545, kg, PRN C hest Pain, Start date: 08/08/16 14:27:00 CDT, Duration: 30 day, Stop date: 09/07 14:26:00 CDT Notes: (Same as:Nitroquick, Nitrostat)"Do Not Crush" Sublingual tablet Start Date: 08/08/16 Stop Date: 08/19/16 Status: Discontinued Norvasc 5 mg oral tablet 5 mg=1 tab, PO, Daily, # 30 tab, 1 Refill(s) Start Date: 08/19/16 Status: Ordered Omnicef 300 mg oral capsule 300 mg, 1 cap, Route: PO, Drug form: CAP, [id number], Dosing Weight 52.739, kg, Sta rt date: 08/17/16 9:00:00 CDT, Duration: 7 day, Stop date: 08/23/16 9:00:00 CDT Notes: (Same As: Omnicef) Start Date: 08/17/16 Stop Date: 08/19/16 Status: Discontinued Omnicef 300 mg oral capsule 300 mg=1 cap, PO, Daily, X 5 day, # 5 cap, 0 Refill(s) Start Date: 08/19/16 Stop Date: 08/24/16 Status: Ordered ondansetron 4 mg, 2 mL, Route: IVP, Drug form: INJ, Q6H, Dosing Weight 59.574, kg, PRN Nause a & Vomiting, Start date: 08/10/16 16:32:00 CDT, Duration: 30 day, Stop date: 09/09/16 16:31:00 CDT Notes: (Same as: Savita) MEDICATION WASTE Product Size: 4 mgProduct Was yecenia: _0__ mg Start Date: 08/10/16 Stop Date: 08/19/16 Status: Discontinued ondansetron 4 mg, 2 mL, Route: IVP, Drug form: INJ, Q6H, Dosing Weight 57.045, kg, PRN Nause a & Vomiting, Start date: 08/09/16 12:32:00 CDT, Duration: 30 day, Stop date: 09/08/16 12:31:00 CDT Notes: (Same as: Kwakuan) MEDICATION WASTE Product Size: 4 mgProduct Was yecenia: ___ mg Start Date: 08/09/16 Stop Date: 08/10/16 Status: Discontinued oxyCODONE 5 mg oral tablet 5 mg, 1 tab, Route: PO, Drug form: TAB, Q6H, Dosing Weight 59.574, kg, PRN Pain Score 7-10, Start date: 08/11/16 22:09:00 CDT, Duration: 30 day, Stop date: 08/27 08/12 22:08:00 CDT Notes: (Same as: Roxicodone) Start Date: 08/11/16 Stop Date: 08/19/16 Status: Discontinued pantoprazole 40 mg, Route: IVP, Drug form: INJ, Before Dinner, Dosing Weight 59.574, kg, Star t date: 08/10/16 17:15:00 CDT, Duration: 30 day, Stop date: 09/09/16 16:30:00 CD T Notes: For IV push reconstitute with 10 ml 0.9% sodium chloride and push over 2 minutes. (Same as: Protonix) Start Date: 08/10/16 Stop Date: 08/19/16 Status: Discontinued pantoprazole 40 mg, 1 tab, Route: PO, Drug form: ECTAB, Before Dinner, Dosing Weight 59.574, kg, Start date: 08/11/16 16:30:00 CDT, Duration: 30 day, Stop date: 09/09/16 16: 30:00 CDT Notes: Tablet should not be chewed or crushed.(Same as: Protonix) Start Date: 08/11/16 Stop Date: 08/10/16 Status: Discontinued Pepcid 20 mg oral tablet 20 mg, 1 tab, Route: PO, Drug form: TAB, Daily, Dosing Weight 59.545, kg, Start date: 08/09/16 9:00:00 CDT, Duration: 30 day, Stop date: 09/07/16 9:00:00 CDT Notes: (Same as: Pepcid) Start Date: 08/09/16 Stop Date: 08/10/16 Status: Discontinued phenylephrine (ANES) Route: IV, Drug form: INJ, ONCE, Stop date: 08/10/16 16:11:00 CDT Start Date: 08/10/16 Stop Date: 08/10/16 Status: Completed potassium chloride 10 mEq, 100 mL, Route: IVPB, Drug form: INJ, Q1H, Dosing Weight 52.739, kg, Tota l Dose=20 meq, Start date: 08/16/16 9:00:00 CDT, Duration: 2 doses or times, Sto p date: 08/16/16 10:00:00 CDT, Peripheral Line Notes: Infuse at a rate of 10 mEq/hr.(Same as: KCL) Start Date: 08/16/16 Stop Date: 08/16/16 Status: Completed potassium chloride 20 mEq, Route: NJ, Drug form: LIQ, PRN, Dosing Weight 59.574, kg, PRN Abnormal L ab Result, Start date: 08/10/16 16:55:00 CDT, Duration: 30 day, Stop date: 09/09 16:54:00 CDT, FOR ICU USE ONLY Start Date: 08/10/16 Stop Date: 08/10/16 Status: Discontinued potassium chloride 20 mEq, Route: PO, Drug form: ERTAB, PRN, Dosing Weight 59.574, kg, PRN Abnormal Lab Result, Start date: 08/10/16 16:55:00 CDT, Duration: 30 day, Stop date: 16:54:00 CDT, FOR ICU USE ONLY Start Date: 08/10/16 Stop Date: 08/10/16 Status: Discontinued potassium chloride 10 mEq, Route: IVPB, PRN, Dosing Weight 59.574, kg, PRN Abnormal Lab Result, Via peripheral line, Start date: 08/10/16 16:55:00 CDT, Duration: 30 day, Stop date: 09/09/16 16:54:00 CDT, FOR ICU USE ONLY Start Date: 08/10/16 Stop Date: 08/10/16 Status: Discontinued potassium chloride 20 mEq, Route: IVPB, PRN, Dosing Weight 59.574, kg, PRN Abnormal Lab Result, Via central line, Start date: 08/10/16 16:55:00 CDT, Duration: 30 day, Stop date: 0 09/09/16 16:54:00 CDT, FOR ICU USE ONLY Start Date: 08/10/16 Stop Date: 08/10/16 Status: Discontinued potassium phosphate 45 mmol, Route: IVPB, PRN, Dosing Weight 59.574, kg, PRN Abnormal Lab Result, St art date: 08/10/16 16:55:00 CDT, Duration: 30 day, Stop date: 09/09/16 16:54:00 CDT, FOR ICU USE ONLY Start Date: 08/10/16 Stop Date: 08/10/16 Status: Discontinued potassium phosphate 30 mmol, Route: IVPB, PRN, Dosing Weight 59.574, kg, PRN Abnormal Lab Result, St art date: 08/10/16 16:55:00 CDT, Duration: 30 day, Stop date: 09/09/16 16:54:00 CDT, FOR ICU USE ONLY Start Date: 08/10/16 Stop Date: 08/10/16 Status: Discontinued potassium phosphate 15 mmol, Route: IVPB, PRN, Dosing Weight 59.574, kg, PRN Abnormal Lab Result, St art date: 08/10/16 16:55:00 CDT, Duration: 30 day, Stop date: 09/09/16 16:54:00 CDT, FOR ICU USE ONLY Start Date: 08/10/16 Stop Date: 08/10/16 Status: Discontinued potassium phosphate-sodium phosphate 250 mg-280 mg-160 mg oral powder for recons titution 2 pkt, Route: PO, Dosing Weight 59.574, kg, PRN, PRN Abnormal Lab Result, FOR IC U USE ONLY, Start date: 08/10/16 16:55:00 CDT, Duration: 30 day, Stop date: 08/27 07/13 16:54:00 CDT Start Date: 08/10/16 Stop Date: 08/10/16 Status: Discontinued propofol (ANES) Route: IV, Drug form: INJ, ONCE, Stop date: 08/10/16 15:26:00 CDT Start Date: 08/10/16 Stop Date: 08/10/16 Status: Completed Restoril 15 mg, 1 cap, Route: PO, Drug form: CAP, Bedtime, Dosing Weight 57.045, kg, PRN Sleep, Start date: 08/09/16 20:38:00 CDT, Duration: 30 day, Stop date: 09/08/16 20:37:00 CDT Notes: (Same As: Restoril) Start Date: 08/09/16 Stop Date: 08/10/16 Status: Discontinued Saline Flush 0.9% 10 mL, Route: IVP, Drug Form: INJ, Dosing Weight 61.364, kg, PRN, PRN Line Flush , Start date: 08/08/16 6:47:00 CDT, Duration: 30 day, Stop date: 09/07/16 6:46:0 0 CDT Start Date: 08/08/16 Stop Date: 08/08/16 Status: Discontinued Saline Flush 0.9% 10 ml, Route: IVP, Drug Form: INJ, Dosing Weight 59.574, kg, Q12H, Start date: 0 08/10/16 21:00:00 CDT, Duration: 30 day, Stop date: 09/09/16 9:00:00 CDT Notes: (Same as: BD Posiflush) Start Date: 08/10/16 Stop Date: 08/19/16 Status: Discontinued Saline Flush 0.9% 10 ml, Route: IVP, Drug Form: INJ, Dosing Weight 59.574, kg, PRN, PRN Line Flush , Start date: 08/10/16 16:55:00 CDT, Duration: 30 day, Stop date: 09/09/16 16:54 :00 CDT Notes: (Same as: BD Posiflush) Start Date: 08/10/16 Stop Date: 08/10/16 Status: Discontinued Saline Flush 0.9% 10 ml, Route: IVP, Drug Form: INJ, Dosing Weight 59.574, kg, PRN, PRN Line Flush , Start date: 08/10/16 16:32:00 CDT, Duration: 30 day, Stop date: 09/09/16 16:31 :00 CDT Notes: (Same as: BD Posiflush) Start Date: 08/10/16 Stop Date: 08/19/16 Status: Discontinued SEROquel 25 mg, 1 tab, Route: PO, Drug form: TAB, Bedtime, Dosing Weight 59.574, kg, Star t date: 08/10/16 21:00:00 CDT, Duration: 30 day, Stop date: 09/08/16 21:00:00 CD T Notes: (Same as: SEROquel) Start Date: 08/10/16 Stop Date: 08/19/16 Status: Discontinued simethicone 80 mg, Route: PO, Drug form: TAB, Q6H, Dosing Weight 57.045, kg, PRN Gas, Start date: 08/09/16 12:32:00 CDT, Duration: 2 doses or times, Stop date: Limited # of times Start Date: 08/09/16 Stop Date: 08/09/16 Status: Deleted sodium chloride 0.45% 1000 ml INJ 1,000 mL 1,000 mL, Rate: 75 ml/hr, Infuse over: 13.3 hr, Route: IV, Dosing Weight 59.574 kg, Total Volume: 1,000, Start date: 08/10/16 16:32:00 CDT, Duration: 1 doses or times, Stop date: 08/11/16 5:49:00 CDT Start Date: 08/10/16 Stop Date: 08/11/16 Status: Completed sodium chloride 0.9% 100 ml INJ (ANES) + cefuroxime (ANES) (ANES) Route: IV, Drug form: INJ, Start date: 08/10/16 14:30:00 CDT, Stop date: 7 15:30:00 CDT Start Date: 08/10/16 Stop Date: 08/10/16 Status: Completed sodium chloride 0.9% 500 ml INJ (ANES) Route: IV, Total Volume: 500, Start date: 08/10/16 15:05:00 CDT, Stop date: 07/27 08/12 16:05:00 CDT Start Date: 08/10/16 Stop Date: 08/10/16 Status: Completed Sodium Chloride 0.9% IV 250 mL, Route: IVPB, Start date: 08/08/16 6:57:00 CDT, Duration: 30 day, Stop da te: 09/07/16 6:56:00 CDT, PRN Line Flush Start Date: 08/08/16 Stop Date: 08/19/16 Status: Discontinued sodium phosphate 45 mmol, Route: IVPB, PRN, Dosing Weight 59.574, kg, PRN Abnormal Lab Result, St art date: 08/10/16 16:55:00 CDT, Duration: 30 day, Stop date: 09/09/16 16:54:00 CDT, FOR ICU USE ONLY Start Date: 08/10/16 Stop Date: 08/10/16 Status: Discontinued sodium phosphate 30 mmol, Route: IVPB, PRN, Dosing Weight 59.574, kg, PRN Abnormal Lab Result, St art date: 08/10/16 16:55:00 CDT, Duration: 30 day, Stop date: 09/09/16 16:54:00 CDT, FOR ICU USE ONLY Start Date: 08/10/16 Stop Date: 08/10/16 Status: Discontinued sodium phosphate 15 mmol, Route: IVPB, PRN, Dosing Weight 59.574, kg, PRN Abnormal Lab Result, St art date: 08/10/16 16:55:00 CDT, Duration: 30 day, Stop date: 09/09/16 16:54:00 CDT, FOR ICU USE ONLY Start Date: 08/10/16 Stop Date: 08/10/16 Status: Discontinued temazepam 7.5 mg, 1 cap, Route: PO, Drug form: CAP, Bedtime, Dosing Weight 59.574, kg, PRN Insomnia, Start date: 08/10/16 16:32:00 CDT, Duration: 30 day, Stop date: 09/09 16:31:00 CDT Notes: (Same As: Restoril) Start Date: 08/10/16 Stop Date: 08/12/16 Status: Discontinued temazepam 15 mg, 1 cap, Route: PO, Drug form: CAP, Bedtime, Dosing Weight 57.045, kg, PRN Insomnia, Start date: 08/09/16 12:32:00 CDT, Duration: 30 day, Stop date: 12:31:00 CDT Notes: (Same As: Restoril) Start Date: 08/09/16 Stop Date: 08/10/16 Status: Discontinued tramadol 50 mg oral tablet 50 mg, 1 tab, Route: PO, Drug form: TAB, Q12H, Dosing Weight 57.045, kg, PRN Gregorio n Score 1-5, Start date: 08/11/16 19:20:00 CDT, Duration: 30 day, Stop date: 19:19:00 CDT Notes: Not to exceed 400mg/day. (Same As: Ultram) Start Date: 08/11/16 Stop Date: 08/19/16 Status: Discontinued tramadol 50 mg oral tablet 50 mg, 1 tab, Route: PO, Drug form: TAB, Q8H, Dosing Weight 57.045, kg, PRN Pain Score 1-5, Start date: 08/09/16 12:34:00 CDT, Duration: 30 day, Stop date: 08/27 06/12 12:33:00 CDT Notes: Not to exceed 400mg/day. (Same As: Ultram) Start Date: 08/09/16 Stop Date: 08/11/16 Status: Discontinued vancomycin (ANES) (ANES) Route: IV, Drug form: INJ, Start date: 08/10/16 14:00:00 CDT, Stop date: 7 15:00:00 CDT Start Date: 08/10/16 Stop Date: 08/10/16 Status: Completed vancomycin + sodium chloride 0.9% INJ 250 mL 1,000 mg, Route: IVPB, ONCE, Dosing Weight 59.574, kg, Start date: 08/11/16 12:0 0:00 CDT, Stop date: 08/11/16 12:00:00 CDT Notes: TIME CRITICAL MEDICATION(Same As: Vancocin)Infusion rate< 1000 mg: infuse over 1 [id number] - 1500 mg: infuse over 1.5 [id number] - 2000 mg: infuse over 2 hours> 2001 mg: infuse over 2.5 hours MEDICATION WASTE Product Size: 1000 mgProduct Wasted: ___ mg Start Date: 08/11/16 Stop Date: 08/11/16 Status: Completed vancomycin + sodium chloride 0.9% INJ 250 mL 1,000 mg, Route: IVPB, ONCE, Dosing Weight 52.739, kg, Start date: 08/15/16 10:4 5:00 CDT, Stop date: 08/15/16 10:45:00 CDT, ABX Indication: Pneumonia Notes: TIME CRITICAL MEDICATION(Same As: Vancocin)Infusion rate< 1000 mg: infuse over 1 [id number] - 1500 mg: infuse over 1.5 [id number] - 2000 mg: infuse over 2 hours> 2001 mg: infuse over 2.5 hours MEDICATION WASTE Product Size: 1000 mgProduct Wasted: ___ mg Start Date: 08/15/16 Stop Date: 08/15/16 Status: Completed vancomycin + sodium chloride 0.9% INJ 250 mL 1,000 mg, Route: IVPB, ONCE, Dosing Weight 52.278, kg, Start date: 08/13/16 14:5 2:00 CDT, Stop date: 08/13/16 14:52:00 CDT, ABX Indication: Pneumonia Notes: TIME CRITICAL MEDICATION(Same As: Vancocin)Infusion rate< 1000 mg: infuse over 1 [id number] - 1500 mg: infuse over 1.5 [id number] - 2000 mg: infuse over 2 hours> 2001 mg: infuse over 2.5 hours MEDICATION WASTE Product Size: 1000 mgProduct Wasted: ___ mg Start Date: 08/13/16 Stop Date: 08/13/16 Status: Completed vancomycin + sodium chloride 0.9% INJ 250 mL 1,000 mg, Route: IVPB, ONCE, Dosing Weight 59.574, kg, Start date: 08/11/16 10:2 5:00 CDT, Stop date: 08/11/16 10:25:00 CDT Notes: TIME CRITICAL MEDICATION(Same As: Vancocin)Infusion rate< 1000 mg: infuse over 1 [id number] - 1500 mg: infuse over 1.5 [id number] - 2000 mg: infuse over 2 hours> 2001 mg: infuse over 2.5 hours MEDICATION WASTE Product Size: 1000 mgProduct Wasted: ___ mg Start Date: 08/11/16 Stop Date: 08/11/16 Status: Deleted vecuronium (ANES) Route: IV, Drug form: INJ, ONCE, Stop date: 08/10/16 15:31:00 CDT Start Date: 08/10/16 Stop Date: 08/10/16 Status: Completed Zinacef + sodium chloride 0.9% INJ 100 mL 1.5 gm, Route: IVPB, [id number], Start date: 08/11/16 2:00:00 CDT, Duration: 1 dose s or times, Stop date: 08/11/16 2:00:00 CDT Notes: (Same As: Kefurox, Zinacef) MEDICATION WASTE Product Size: 1500 mgProduct Wasted: _0__ mg Start Date: 08/11/16 Stop Date: 08/11/16 Status: Completed Results BLOOD BANK RESULTS 1 2 3 Most recent to oldest [Reference Range]: B POS *Unknown* (08/14/16 5:05 AM) B POS *Unknown* (08/09/16 10:44 PM) ABO/Rh Negative (08/14/16 5:05 AM) Negative (08/09/16 10:44 PM) Antibody Scrn Product available (08/15/16 5:45 AM) Product available (08/15/16 1:43 AM) Product available (08/14/16 7:56 AM) RBC product ELECTROLYTES 1 2 3 Most recent to oldest [Reference Range]: 136 mEq/L (08/18/16 7:05 AM) 137 mEq/L (08/17/16 5:08 AM) 142 mEq/L (08/16/16 10:02 PM) Sodium Lvl [135-145 mEq/L] 3.8 mEq/L (08/18/16 7:05 AM) 3.8 mEq/L (08/17/16 5:08 AM) 3.4 mEq/L *LOW* (08/16/16 10:02 PM) Potassium Lvl [3.5-5.1 mEq/L] 102 mEq/L (08/18/16 7:05 AM) 104 mEq/L (08/17/16 5:08 AM) 106 mEq/L (08/16/16 10:02 PM) Chloride Lvl [95-109 mEq/L] 27 mEq/L (08/18/16 7:05 AM) 27 mEq/L (08/17/16 5:08 AM) 28 mEq/L (08/16/16 10:02 PM) CO2 [24-32 mEq/L] 10.8 mEq/L (08/18/16 7:05 AM) 9.8 mEq/L *LOW* (08/17/16 5:08 AM) 11.4 mEq/L (08/16/16 10:02 PM) AGAP [10.0-20.0 mEq/L] 138 mEq/L (08/10/16 10:18 AM) POC Sodium [135-145 mEq/L] 4.6 mEq/L (08/10/16 10:18 AM) POC Potassium [3.5-5.1 mEq/L] 97 mEq/L (08/10/16 10:18 AM) POC Chloride [95-109 mEq/L] CHEM PANEL 1 2 3 Most recent to oldest [Reference Range]: 5.10 mg/dL *HI* (08/18/16 7:05 AM) 4.20 mg/dL *HI* (08/17/16 5:08 AM) 3.80 mg/dL *HI* (08/16/16 10:02 PM) Creatinine Lvl [0.50-1.40 mg/dL] 13 mL/min/1.73m2 1 *NA* (08/18/16 7:05 AM) 17 mL/min/1.73m2 2 *NA* (08/17/16 5:08 AM) 19 mL/min/1.73m2 3 *NA* (08/16/16 10:02 PM) eGFR 62 mg/dL *HI* (08/18/16 7:05 AM) 45 mg/dL *HI* (08/17/16 5:08 AM) 43 mg/dL *HI* (08/16/16 10:02 PM) BUN [7-22 mg/dL] 8 (08/12/16 2:52 AM) 8 (08/10/16 5:11 PM) 6 (08/08/16 6:58 AM) B/C Ratio [6-25] 100 mg/dL *HI* (08/18/16 7:05 AM) 123 mg/dL *HI* (08/17/16 5:08 AM) 240 mg/dL *HI* (08/16/16 10:02 PM) Glucose Lvl [70-99 mg/dL] 32 mg/dL *HI* (08/10/16 10:18 AM) POC BUN [7-22 mg/dL] 56 mg/dL *LOW* (08/10/16 10:18 AM) POC Glucose [70-99 mg/dL] 7.4 g/dL (08/12/16 2:52 AM) 7.1 g/dL (08/10/16 5:11 PM) 10.0 g/dL *HI* (08/08/16 6:58 AM) Total Protein [6.4-8.4 g/dL] 1.9 g/dL *LOW* (08/12/16 2:52 AM) 2.0 g/dL *LOW* (08/10/16 5:11 PM) 2.8 g/dL *LOW* (08/08/16 6:58 AM) Albumin Lvl [3.5-5.0 g/dL] 5.5 g/dL *HI* (08/12/16 2:52 AM) 5.1 g/dL *HI* (08/10/16 5:11 PM) 7.2 g/dL *HI* (08/08/16 6:58 AM) Globulin [2.7-4.2 g/dL] 0.3 *LOW* (08/12/16 2:52 AM) 0.4 *LOW* (08/10/16 5:11 PM) 0.4 *LOW* (08/08/16 6:58 AM) A/G Ratio [0.7-1.6] 8.2 mg/dL *LOW* (08/18/16 7:05 AM) 7.6 mg/dL *LOW* (08/17/16 5:08 AM) 7.8 mg/dL *LOW* (08/16/16 10:02 PM) Calcium Lvl [8.5-10.5 mg/dL] 5.3 mg/dL *HI* (08/12/16 2:52 AM) 4.7 mg/dL *HI* (08/11/16 2:43 AM) 4.4 mg/dL (08/10/16 4:57 PM) Phosphorus [2.5-4.5 mg/dL] 1.9 mg/dL (08/12/16 2:52 AM) 1.8 mg/dL (08/11/16 2:43 AM) 1.8 mg/dL (08/10/16 4:57 PM) Magnesium Lvl [1.8-2.4 mg/dL] 13 unit/L (08/12/16 2:52 AM) 10 unit/L (08/10/16 5:11 PM) 16 unit/L (08/08/16 6:58 AM) ALT [0-65 unit/L] 21 unit/L (08/12/16 2:52 AM) 18 unit/L (08/10/16 5:11 PM) 22 unit/L (08/08/16 6:58 AM) AST [0-37 unit/L] 56 unit/L (08/12/16 2:52 AM) 55 unit/L (08/10/16 5:11 PM) 78 unit/L (08/08/16 6:58 AM) Alk Phos [39-136 unit/L] 214 unit/L *HI* (08/08/16 6:50 AM) LDH [98-192 unit/L] 0.5 mg/dL (08/12/16 2:52 AM) 0.5 mg/dL (08/10/16 5:11 PM) 0.5 mg/dL (08/08/16 6:58 AM) Bili Total [0.2-1.3 mg/dL] 6.38 ng/mL 4 *CRIT* (08/17/16 11:41 AM) 23.22 ng/mL 5 *CRIT* (08/12/16 3:15 PM) Procalcitonin Lvl [0.00-0.10 ng/mL] 1Result Comment: The [...] be mul tiplied by the estimated BMI. 4Result Comment: Critical Result(s) called to krysta andrew at 13:30_ by_. Read back OK. 5Result Comment: Critical Result(s) called to Glenn Castillo at 08/12/2016 16:18 by Deisy. Read back OK. CARDIAC ENZYMES 1 2 3 Most recent to oldest [Reference Range]: 0.02 ng/mL (08/08/16 6:58 AM) Troponin-I [0.00-0.40 ng/mL] SPECIAL CHEMISTRY 1 2 3 Most recent to oldest [Reference Range]: <3.5 % (08/11/16 2:43 AM) Hgb A1C [<=5.6 %] PARATHYROID PROFILE 1 2 3 Most recent to oldest [Reference Range]: 1.07 mMol/L (08/12/16 2:52 AM) 1.13 mMol/L (08/11/16 2:43 AM) 1.01 mMol/L *LOW* (08/10/16 5:11 PM) Ca Ion WB [1.05-1.25 mMol/L] 1.03 mMol/L *LOW* (08/12/16 2:52 AM) 1.13 mMol/L (08/11/16 2:43 AM) 1.04 mMol/L *LOW* (08/10/16 5:11 PM) Ca Norm WB [1.05-1.25 mMol/L] TOXICOLOGY 1 2 3 Most recent to oldest [Reference Range]: 9.7 ug/ml *NA* (08/13/16 5:05 AM) Vanco Lvl BODY FLUIDS 1 2 3 Most recent to oldest [Reference Range]: 81 mg/dL *NA* (08/10/16 3:23 PM) Glucose BF Pleural *NA* (08/10/16 3:23 PM) Gluc BF Type 16 unit/L *NA* (08/10/16 3:23 PM) Amylase BF Pleural *NA* (08/10/16 3:23 PM) Amyl BF Type 1.7 g/dL *NA* (08/10/16 3:23 PM) Albumin BF Pleural *NA* (08/10/16 3:23 PM) Alb BF Type 8.00 *NA* (08/10/16 3:23 PM) pH BF Pleural (08/10/16 3:23 PM) pH BF Type Pleural *NA* (08/10/16 3:23 PM) Pleural *NA* (08/08/16 11:46 AM) Prot BF Type Pleural (08/10/16 3:23 PM) Pleural (08/08/16 11:46 AM) LDH BF Type 5.2 g/dL *NA* (08/10/16 3:23 PM) 5.6 g/dL *NA* (08/08/16 11:46 AM) Protein BF 669 unit/L *NA* (08/10/16 3:23 PM) 664 unit/L *NA* (08/08/16 11:46 AM) LDH BF Brown *ABN* (08/10/16 3:23 PM) Brown *ABN* (08/08/16 11:46 AM) Color BF [Colorless] Clotted 1 *ABN* (08/10/16 3:23 PM) Marked *ABN* (08/08/16 11:46 AM) Clarity BF [Clear] Brown *ABN* (08/08/16 11:46 AM) Supernat BF [Colorless] [id number] /mm3 *NA* (08/10/16 3:23 PM) 45537 /mm3 *NA* (08/08/16 11:46 AM) RBC BF 56 /mm3 *NA* (08/10/16 3:23 PM) 63 /mm3 *NA* (08/08/16 11:46 AM) WBC BF 30 % *NA* (08/10/16 3:23 PM) 14 % *NA* (08/08/16 11:46 AM) Segs BF 57 % *NA* (08/10/16 3:23 PM) 69 % *NA* (08/08/16 11:46 AM) Lymph BF 13 % *NA* (08/10/16 3:23 PM) 17 % *NA* (08/08/16 11:46 AM) Macrophage BF Pleural (08/10/16 3:23 PM) Pleural (08/08/16 11:46 AM) CellCnt BF Type 1Result Comment: Clottted Specimen - Cell counts may not be labor relations representative IMMUNOLOGY 1 2 3 Most recent to oldest [Reference Range]: Negative (08/12/16 10:00 AM) TATI [Negative] Negative *NA* (08/12/16 10:00 AM) HIV Ag/Ab 4th Gen [Negative] Negative *NA* (08/08/16 12:08 PM) Hep Bs Ag [Negative] Positive *ABN* (08/08/16 12:08 PM) Hep C Ab HEMATOLOGY 1 2 3 Most recent to oldest [Reference Range]: 12.2 K/CMM *HI* (08/19/16 5:28 AM) 14.3 K/CMM *HI* (08/18/16 7:05 AM) 14.6 K/CMM *HI* (08/17/16 5:08 AM) WBC [3.7-10.4 K/CMM] 2.97 M/CMM *LOW* (08/19/16 5:28 AM) 2.93 M/CMM *LOW* (08/18/16 7:05 AM) 3.02 M/CMM *LOW* (08/17/16 5:08 AM) RBC [4.70-6.10 M/CMM] 8.6 g/dL *LOW* (08/19/16 5:28 AM) 8.1 g/dL *LOW* (08/18/16 7:05 AM) 8.3 g/dL *LOW* (08/17/16 5:08 AM) Hgb [14.0-18.0 g/dL] 25.3 % *LOW* (08/19/16 5:28 AM) 25.0 % *LOW* (08/18/16 7:05 AM) 25.9 % *LOW* (08/17/16 5:08 AM) Hct [42.0-54.0 %] 85.4 fL (08/19/16 5:28 AM) 85.2 fL (08/18/16 7:05 AM) 86.0 fL (08/17/16 5:08 AM) MCV [80.0-94.0 fL] 28.9 pg (08/19/16 5:28 AM) 27.7 pg (08/18/16 7:05 AM) 27.4 pg (08/17/16 5:08 AM) MCH [27.0-31.0 pg] 33.9 g/dL (08/19/16 5:28 AM) 32.5 g/dL (08/18/16 7:05 AM) 31.9 g/dL *LOW* (08/17/16 5:08 AM) MCHC [32.0-36.0 g/dL] 16.0 % *HI* (08/19/16 5:28 AM) 16.1 % *HI* (08/18/16 7:05 AM) 16.4 % *HI* (08/17/16 5:08 AM) RDW [11.5-14.5 %] 356 K/CMM (08/19/16 5:28 AM) 333 K/CMM (08/18/16 7:05 AM) 339 K/CMM (08/17/16 5:08 AM) Platelet [133-450 K/CMM] 7.6 fL (08/19/16 5:28 AM) 7.8 fL (08/18/16 7:05 AM) 7.8 fL (08/17/16 5:08 AM) MPV [7.4-10.4 fL] 11.6 g/dL *LOW* (08/10/16 10:18 AM) POC Hemoglobin [14.0-18.0 g/dL] 34.0 % *LOW* (08/10/16 10:18 AM) POC Hematocrit [42.0-54.0 %] 55.6 % (08/19/16 5:28 AM) 59.4 % (08/18/16 7:05 AM) 63.5 % (08/16/16 4:50 AM) Segs [45.0-75.0 %] 22.4 % (08/19/16 5:28 AM) 17.9 % *LOW* (08/18/16 7:05 AM) 15.2 % *LOW* (08/16/16 4:50 AM) Lymphocytes [20.0-40.0 %] 16.5 % *HI* (08/19/16 5:28 AM) 15.2 % *HI* (08/18/16 7:05 AM) 15.9 % *HI* (08/16/16 4:50 AM) Monocytes [2.0-12.0 %] 4.8 % *HI* (08/19/16 5:28 AM) 6.8 % *HI* (08/18/16 7:05 AM) 4.8 % *HI* (08/16/16 4:50 AM) Eosinophils [0.0-4.0 %] 0.7 % (08/19/16 5:28 AM) 0.7 % (08/18/16 7:05 AM) 0.6 % (08/16/16 4:50 AM) Basophils [0.0-1.0 %] 6.8 K/CMM (08/19/16 5:28 AM) 8.5 K/CMM *HI* (08/18/16 7:05 AM) 8.0 K/CMM (08/16/16 4:50 AM) Segs-Bands # [1.5-8.1 K/CMM] 2.7 K/CMM (08/19/16 5:28 AM) 2.5 K/CMM (08/18/16 7:05 AM) 1.9 K/CMM (08/16/16 4:50 AM) Lymphocytes # [1.0-5.5 K/CMM] 2.0 K/CMM *HI* (08/19/16 5:28 AM) 2.2 K/CMM *HI* (08/18/16 7:05 AM) 2.0 K/CMM *HI* (08/16/16 4:50 AM) Monocytes # [0.0-0.8 K/CMM] 0.6 K/CMM *HI* (08/19/16 5:28 AM) 1.0 K/CMM *HI* (08/18/16 7:05 AM) 0.6 K/CMM *HI* (08/16/16 4:50 AM) Eosinophils # [0.0-0.5 K/CMM] 0.1 K/CMM (08/19/16 5:28 AM) 0.1 K/CMM (08/18/16 7:05 AM) 0.1 K/CMM (08/16/16 4:50 AM) Basophils # [0.0-0.2 K/CMM] Normal (08/10/16 3:40 AM) RBC Morph Moderate *ABN* (08/14/16 5:05 AM) Polychrom [None Seen] Normal (08/14/16 5:05 AM) Normal (08/10/16 3:40 AM) Plt Morph 100 mm/hr *HI* (08/13/16 5:05 AM) Sed Rate [0-15 mm/hr] 15.3 seconds *HI* (08/10/16 4:57 PM) 14.9 seconds *HI* (08/10/16 3:40 AM) 14.1 seconds (08/08/16 6:58 AM) PT [12.0-14.7 seconds] 1.18 *HI* (08/10/16 4:57 PM) 1.15 (08/10/16 3:40 AM) 1.07 (08/08/16 6:58 AM) INR [0.85-1.17] 343 mg/dL (08/10/16 4:57 PM) Fibrinogen Lvl [230-510 mg/dL] 39.5 seconds *HI* (08/10/16 4:57 PM) 39.5 seconds *HI* (08/10/16 3:40 AM) 40.1 seconds *HI* (08/08/16 6:58 AM) PTT [22.9-35.8 seconds] MOLECULAR DIAGNOSTIC 1 2 3 Most recent to oldest [Reference Range]: [id number] IU/mL *NA* (08/12/16 10:00 AM) HCV RNA VirLoad 5.5 IU/mL *NA* (08/12/16 10:00 AM) HCV RNA Log10 Immunizations Given and Recorded Vaccine Date Status [...] Frequency: 1-2 times per month. Last use: 2015. Alcohol use interferes with work or home: [...] hours Assessment and Plan Extracted from: Title: [facility] Author: Cele Madera MD Date: 08/16/16 Called to [facility] for AMS and low sugar on glucometer. Had received regular insulin(15 units) and levemir(10units) after 5 pm was given d 50, repeat sugar 150 on arrival pts eyes open but not responding to name or painful stimuli vitals stable pupils small bet reactive stat order placed for D5W. BMP already drawn. will monitor fingerstick [id number] and mental status.
--- OUTSIDE RECORDS SUMMARY | 2018-05-16 23:39 | XMS REPORT | Summary of Care ---
Author Author [facility] Organization [facility] Address Unknown Phone Unavailable Encounter HQ Sara(WILDER) [id number] Date(s): 07/24/16 - 07/25/16 [facility] [address] [place] [address]- [phone] Discharge Disposition: [facility] Care Facility Attending Physician: Fer De La Garza DO Admitting Physician: Fer De La Garza DO Vital Signs 1 2 3 Most recent to oldest [Reference Range]: 162.56 cm (07/25/16 3:24 AM) 152.4 cm (07/24/16 9:55 PM) Height 98 DegF (07/25/16 11:30 AM) 97.9 DegF (07/25/16 7:45 AM) 97.5 DegF (07/25/16 4:15 AM) Temperature Oral [96.4-99.1 DegF] 162/84 mmHg *HI* (07/25/16 11:30 AM) 129/62 mmHg (07/25/16 7:45 AM) 151/78 mmHg *HI* (07/25/16 4:15 AM) Blood Pressure [90-140/60-90 mmHg] 20 BRMIN (07/25/16 7:45 AM) 18 BRMIN (07/25/16 4:15 AM) 23 BRMIN *HI* (07/25/16 3:43 AM) Respiratory Rate [14-20 BRMIN] 80 bpm (07/25/16 11:30 AM) 74 bpm (07/25/16 7:45 AM) 74 bpm (07/25/16 4:15 AM) Peripheral Pulse Rate [60-100 bpm] 61.364 kg (07/25/16 3:24 AM) 63.636 kg (07/24/16 9:55 PM) Weight 23.22 m2 (07/25/16 3:24 AM) 27.4 m2 (07/24/16 9:55 PM) Body Mass Index Problem List Condition Effective Dates Status Health Status Informant Asthma(Confirmed) Resolved Bipolar(Confirmed) Active COPD(Confirmed) Active Diabetes Active mellitus(Confirmed) ESRD (end stage Active renal disease)(Confirmed) HTN - Active Hypertension(Confirm ed) Schizophrenia(Confir Active med) Allergies, Adverse Reactions, Alerts Substance Reaction Severity Status aspirin Active Tylenol1 Active 1pt states he swells up when he takes tylenol Medications acetaminophen 650 mg, 2 tab, Route: PO, Drug form: TAB, Q4H, Dosing Weight 63.636, kg, PRN Gregorio n 1-3/Temp > 100.4 F, Start date: 07/25/16 1:26:00 CDT, Duration: 30 day, Stop date: 08/24/16 1:25:00 CDT Notes: Do not exceed 4 gm/day. (Same as: Tylenol) Start Date: 07/25/16 Stop Date: 07/25/16 Status: Discontinued acetaminophen-hydrocodone 325 mg-5 mg oral tablet 1 tab, Route: PO, Drug Form: TAB, Dosing Weight 63.636, kg, Q4H, PRN Pain Score 4-6, Start date: 07/25/16 1:26:00 CDT, Duration: 30 day, Stop date: 08/24/16 1:2 5:00 CDT Notes: (Same as: Marion 325/5) Do not exceed 4gm/day of acetaminophen. Start Date: 07/25/16 Stop Date: 07/25/16 Status: Discontinued amLODIPine 10 mg, 1 tab, Route: PO, Drug form: TAB, Daily, Dosing Weight 63.636, kg, Start date: 07/25/16 9:00:00 CDT, Duration: 30 day, Stop date: 08/23/16 9:00:00 CDT Notes: (Same as: Norvasc) Start Date: 07/25/16 Stop Date: 07/25/16 Status: Discontinued carvedilol 3.125 mg, 1 tab, Route: PO, Drug form: TAB, Q12H, Dosing Weight 63.636, kg, Star t date: 07/25/16 9:00:00 CDT, Duration: 30 day, Stop date: 08/23/16 21:00:00 CDT Notes: Give with food. (Same As: Coreg) Start Date: 07/25/16 Stop Date: 07/25/16 Status: Discontinued cloNIDine 0.1 mg oral tablet 0.1 mg, 1 tab, Route: PO, Drug form: TAB, TID, Dosing Weight 63.636, kg, Start d ate: 07/25/16 9:00:00 CDT, Duration: 30 day, Stop date: 08/23/16 17:00:00 CDT Notes: (Same As: Catapres) Start Date: 07/25/16 Stop Date: 07/25/16 Status: Discontinued Dextrose 50% Syringe 12.5 gm, 25 mL, Route: IVP, Drug Form: INJ, Dosing Weight 63.636, kg, PRN, PRN B lood Glucose Results, Start date: 07/25/16 2:38:00 CDT, Duration: 30 day, Stop d ate: 08/24/16 2:37:00 CDT Start Date: 07/25/16 Stop Date: 07/25/16 Status: Discontinued Dextrose 50% Syringe 25 gm, 50 mL, Route: IVP, Drug Form: INJ, Dosing Weight 63.636, kg, PRN, PRN Blo od Glucose Results, Start date: 07/25/16 2:38:00 CDT, Duration: 30 day, Stop adrian e: 08/24/16 2:37:00 CDT Start Date: 07/25/16 Stop Date: 07/25/16 Status: Discontinued DuoNeb inhalation solution 3 mL, NEB, QID, 0 Refill(s) Start Date: 07/25/16 Status: Ordered DuoNeb inhalation solution 3 ml, Route: NEB, Drug Form: SOLN, Dosing Weight 61.364, kg, PRN, PRN Respirator y Protocol, Start date: 07/25/16 3:52:00 CDT, Duration: 30 day, Stop date: 08/24 3:51:00 CDT Notes: (Same as: Duoneb) Start Date: 07/25/16 Stop Date: 07/25/16 Status: Discontinued DuoNeb inhalation solution 3 ml, Route: NEB, Drug Form: SOLN, Dosing Weight 61.364, kg, QID, NOW, Start adrian e: 07/25/16 14:56:00 CDT, Duration: 30 day, Stop date: 08/24/16 13:00:00 CDT Notes: (Same as: Duoneb) Start Date: 07/25/16 Stop Date: 07/25/16 Status: Discontinued glucagon 1 mg, Route: IM, Drug form: PDR/INJ, PRN, Dosing Weight 63.636, kg, PRN Blood Gl ucose Results, Start date: 07/25/16 2:38:00 CDT, Duration: 30 day, Stop date: 2:37:00 CDT Start Date: 07/25/16 Stop Date: 07/25/16 Status: Discontinued glyBURIDE 5 mg, 1 tab, Route: PO, Drug form: TAB, Daily, Dosing Weight 63.636, kg, Start d ate: 07/25/16 9:00:00 CDT, Duration: 30 day, Stop date: 08/23/16 9:00:00 CDT Notes: Non-Formulary(Same as: Micronase, Diabeta) Take with meals. Start Date: 07/25/16 Stop Date: 07/25/16 Status: Discontinued hydrALAZINE 10 mg, 0.5 mL, Route: IVP, Drug form: INJ, Q6H, Dosing Weight 63.636, kg, PRN Hy pertension, Start date: 07/25/16 1:25:00 CDT, Duration: 30 day, Stop date: 08/24 1:24:00 CDT Notes: (Same as: Apresoline)Push over 5 minutes Start Date: 07/25/16 Stop Date: 07/25/16 Status: Discontinued hydrALAZINE 25 mg oral tablet 50 mg, 2 tab, Route: PO, Drug form: TAB, TID, Dosing Weight 63.636, kg, Start da te: 07/25/16 9:00:00 CDT, Duration: 30 day, Stop date: 08/23/16 17:00:00 CDT Notes: (Same as: Apresoline) May interfere w/enteral feedings Take With Food. Start Date: 07/25/16 Stop Date: 07/25/16 Status: Discontinued insulin aspart 8 unit, 0.08 mL, Route: SUB-Q, Drug form: SOLN, TID-Before Meals, Dosing Weight 63.636, kg, PRN Blood Glucose Results, Start date: 07/25/16 2:38:00 CDT, Duratio n: 30 day, Stop date: 08/24/16 2:37:00 CDT Notes: Roll in palms of hands gently; Do not shake vigorously. (Same as: NovoTHAO G)"single patient use only"WASTE: F/P - Black; E - Municipal Trash Bin Stable f or 28 days at room temperature.Expires in days from Date Start Date: 07/25/16 Stop Date: 07/25/16 Status: Discontinued insulin aspart 2 unit, 0.02 mL, Route: SUB-Q, Drug form: SOLN, TID-Before Meals, Dosing Weight 63.636, kg, PRN Blood Glucose Results, Start date: 07/25/16 2:38:00 CDT, Duratio n: 30 day, Stop date: 08/24/16 2:37:00 CDT Notes: Roll in palms of hands gently; Do not shake vigorously. (Same as: NovoLO G)"single patient use only"WASTE: F/P - Black; E - Municipal Trash Bin Stable f or 28 days at room temperature.Expires in days from Date Start Date: 07/25/16 Stop Date: 07/25/16 Status: Discontinued insulin aspart 6 unit, 0.06 mL, Route: SUB-Q, Drug form: SOLN, TID-Before Meals, Dosing Weight 63.636, kg, PRN Blood Glucose Results, Start date: 07/25/16 2:38:00 CDT, Duratio n: 30 day, Stop date: 08/24/16 2:37:00 CDT Notes: Roll in palms of hands gently; Do not shake vigorously. (Same as: NovoLO G)"single patient use only"WASTE: F/P - Black; E - Municipal Trash Bin Stable f or 28 days at room temperature.Expires in days from Date Start Date: 07/25/16 Stop Date: 07/25/16 Status: Discontinued insulin aspart 10 unit, 0.1 mL, Route: SUB-Q, Drug form: SOLN, TID-Before Meals, Dosing Weight 63.636, kg, PRN Blood Glucose Results, Start date: 07/25/16 2:38:00 CDT, Duratio n: 30 day, Stop date: 08/24/16 2:37:00 CDT Notes: Roll in palms of hands gently; Do not shake vigorously. (Same as: Tesfaye Mccray)"single patient use only"WASTE: F/P - Black; E - Municipal Trash Bin Stable f or 28 days at room temperature.Expires in days from Date Start Date: 07/25/16 Stop Date: 07/25/16 Status: Discontinued insulin aspart 4 unit, 0.04 mL, Route: SUB-Q, Drug form: SOLN, TID-Before Meals, Dosing Weight 63.636, kg, PRN Blood Glucose Results, Start date: 07/25/16 2:38:00 CDT, Duratio n: 30 day, Stop date: 08/24/16 2:37:00 CDT Notes: Roll in palms of hands gently; Do not shake vigorously. (Same as: Tesfaye Mccray)"single patient use only"WASTE: F/P - Black; E - Municipal Trash Bin Stable f or 28 days at room temperature.Expires in days from Date Start Date: 07/25/16 Stop Date: 07/25/16 Status: Discontinued insulin aspart 3 unit, 0.03 mL, Route: SUB-Q, Drug form: SOLN, Bedtime, Dosing Weight 63.636, k g, PRN Blood Glucose Results, Start date: 07/25/16 2:38:00 CDT, Duration: 30 day , Stop date: 08/24/16 2:37:00 CDT Notes: Roll in palms of hands gently; Do not shake vigorously. (Same as: Tesfaye Mccray)"single patient use only"WASTE: F/P - Black; E - Municipal Trash Bin Stable f or 28 days at room temperature.Expires in days from Date Start Date: 07/25/16 Stop Date: 07/25/16 Status: Discontinued insulin aspart 4 unit, 0.04 mL, Route: SUB-Q, Drug form: SOLN, Bedtime, Dosing Weight 63.636, k g, PRN Blood Glucose Results, Start date: 07/25/16 2:38:00 CDT, Duration: 30 day , Stop date: 08/24/16 2:37:00 CDT Notes: Roll in palms of hands gently; Do not shake vigorously. (Same as: Tesfaye Mccray)"single patient use only"WASTE: F/P - Black; E - Municipal Trash Bin Stable f or 28 days at room temperature.Expires in days from Date Start Date: 07/25/16 Stop Date: 07/25/16 Status: Discontinued insulin aspart 1 unit, 0.01 mL, Route: SUB-Q, Drug form: SOLN, Bedtime, Dosing Weight 63.636, k g, PRN Blood Glucose Results, Start date: 07/25/16 2:38:00 CDT, Duration: 30 day , Stop date: 08/24/16 2:37:00 CDT Notes: Roll in palms of hands gently; Do not shake vigorously. (Same as: Tesfaye Mccray)"single patient use only"WASTE: F/P - Black; E - Municipal Trash Bin Stable f or 28 days at room temperature.Expires in days from Date Start Date: 07/25/16 Stop Date: 07/25/16 Status: Discontinued insulin aspart 2 unit, 0.02 mL, Route: SUB-Q, Drug form: SOLN, Bedtime, Dosing Weight 63.636, k g, PRN Blood Glucose Results, Start date: 07/25/16 2:38:00 CDT, Duration: 30 day , Stop date: 08/24/16 2:37:00 CDT Notes: Roll in palms of hands gently; Do not shake vigorously. (Same as: Tesfaye Mccray)"single patient use only"WASTE: F/P - Black; E - Municipal Trash Bin Stable f or 28 days at room temperature.Expires in days from Date Start Date: 07/25/16 Stop Date: 07/25/16 Status: Discontinued isosorbide mononitrate 120 mg, 4 tab, Route: PO, Drug form: ERTAB, Before Breakfast, Dosing Weight 63.6 36, kg, Start date: 07/25/16 7:30:00 CDT, Duration: 30 day, Stop date: 08/23/16 7:30:00 CDT Notes: (Same as:Imdur)"Do Not Crush" Take on empty stomach/ full glass of water . Do not crush Start Date: 07/25/16 Stop Date: 07/25/16 Status: Discontinued lisinopril 40 mg, 2 tab, Route: PO, Drug form: TAB, Daily, Dosing Weight 63.636, kg, Start date: 07/25/16 9:00:00 CDT, Duration: 30 day, Stop date: 08/23/16 9:00:00 CDT Notes: (Same as: Prinivil Zestril) Start Date: 07/25/16 Stop Date: 07/25/16 Status: Discontinued morphine Sulfate 2 mg, 1 mL, Route: IVP, Drug form: INJ, Q4H, Dosing Weight 63.636, kg, PRN Pain Score 7-10, Start date: 07/25/16 1:26:00 CDT, Duration: 30 day, Stop date: 08/24 1:25:00 CDT Notes: (Same as:MORPhine Sulfate) Start Date: 07/25/16 Stop Date: 07/25/16 Status: Discontinued nitroglycerin 0.4 mg sublingual tablet 0.4 mg, 1 tab, Route: SL, Drug form: TAB, Q5Min, Dosing Weight 63.636, kg, PRN C hest Pain, Start date: 07/25/16 2:39:00 CDT, Duration: 30 day, Stop date: 2:38:00 CDT Notes: (Same as:Nitroquick, Nitrostat)"Do Not Crush" Sublingual tablet Start Date: 07/25/16 Stop Date: 07/25/16 Status: Discontinued ondansetron 4 mg, 2 mL, Route: IVP, Drug form: INJ, Q6H, Dosing Weight 63.636, kg, PRN Nause a & Vomiting, Start date: 07/25/16 1:26:00 CDT, Duration: 30 day, Stop date: 08/24/16 1:25:00 CDT Notes: (Same as: Savita) MEDICATION WASTE Product Size: 4 mgProduct Was yecenia: ___ mg Start Date: 07/25/16 Stop Date: 07/25/16 Status: Discontinued Pepcid 20 mg oral tablet 20 mg, 1 tab, Route: PO, Drug form: TAB, Daily, Dosing Weight 63.636, kg, Start date: 07/25/16 9:00:00 CDT, Duration: 30 day, Stop date: 08/23/16 9:00:00 CDT Notes: (Same as: Pepcid) Start Date: 07/25/16 Stop Date: 07/25/16 Status: Discontinued pneumococcal 13-valent vaccine 0.5 mL, Route: IM, Drug Form: INJ, ONCALL, Start date: 07/25/16 3:27:39 CDT, Sto p date: 08/24/16 3:22:39 CDT Notes: Lightly roll vial (DO NOT SHAKE) before administration. (Same as: Prevna r 13) Start Date: 07/25/16 Stop Date: 07/25/16 Status: Discontinued Saline Flush 0.9% 10 mL, Route: IVP, Drug Form: INJ, Dosing Weight 63.636, kg, PRN, PRN Line Flush , Start date: 07/24/16 22:40:00 CDT, Duration: 30 day, Stop date: 08/23/16 22:39 :00 CDT Notes: Same as: BD Posiflush Sterile Start Date: 07/24/16 Stop Date: 07/25/16 Status: Discontinued Results ELECTROLYTES Most recent to 1 oldest [Reference Range]: Sodium Lvl [135-145 139 mEq/L mEq/L] (07/24/16 11:02 PM) Potassium Lvl 3.7 mEq/L [3.5-5.1 mEq/L] (07/24/16 11:02 PM) Chloride Lvl [95-109 100 mEq/L mEq/L] (07/24/16 11:02 PM) CO2 [24-32 mEq/L] 34 mEq/L *HI* (07/24/16 11:02 PM) AGAP [10.0-20.0 8.7 mEq/L mEq/L] *LOW* (07/24/16 11:02 PM) CHEM PANEL Most recent to 1 oldest [Reference Range]: Creatinine Lvl 4.02 mg/dL [0.50-1.40 mg/dL] *HI* (07/24/16 11:02 PM) eGFR 18 mL/min/1.73m2 1 *NA* (07/24/16 11: PM) BUN [7-22 mg/dL] 19 mg/dL (07/24/16 11:02 PM) B/C Ratio [6-25] 5 *LOW* (07/24/16 11 PM) Glucose Lvl [70-99 173 mg/dL mg/dL] *HI* (07/24/16 11:02 PM) Total Protein 8.7 g/dL [6.4-8.4 g/dL] *HI* (07/24/16 11:02 PM) Albumin Lvl [3.5-5.0 2.5 g/dL g/dL] *LOW* (07/24/16 11:02 PM) Globulin [2.7-4.2 6.2 g/dL g/dL] *HI* (07/24/16 11:02 PM) A/G Ratio [0.7-1.6] 0.4 *LOW* (07/24/16 11:02 PM) Calcium Lvl 8.3 mg/dL [8.5-10.5 mg/dL] *LOW* (07/24/16 11:02 PM) ALT [0-65 unit/L] 11 unit/L (07/24/16 11:02 PM) AST [0-37 unit/L] 13 unit/L (07/24/16 11:02 PM) Alk Phos [39-136 74 unit/L unit/L] (07/24/16 11:02 PM) Bili Total [0.2-1.3 0.4 mg/dL mg/dL] (07/24/16 11:02 PM) 1Result Comment: The eGFR is calculated using [...] tiplied by the estimated BMI. CARDIAC ENZYMES Most recent to 1 oldest [Reference Range]: Total CK [12-191 144 unit/L unit/L] (07/24/16 11:02 PM) CK MB [0.5-3.6 6.7 ng/mL ng/mL] *HI* (07/24/16 11:02 PM) CK MB Index 4.7 [0.0-2.5] *HI* (07/24/16 11:02 PM) Troponin-I 0.02 ng/mL [0.00-0.40 ng/mL] (07/24/16 11:02 PM) BNP [<=100 pg/mL] 304 pg/mL *HI* (07/24/16 11:02 PM) IMMUNOLOGY Most recent to 1 oldest [Reference Range]: Hep Bs Ag [Negative] Negative *NA* (07/25/16 2:00 PM) HEMATOLOGY Most recent to 1 oldest [Reference Range]: WBC [3.7-10.4 K/CMM] 8.8 K/CMM (07/24/16 11:02 PM) RBC [4.70-6.10 3.44 M/CMM M/CMM] *LOW* (07/24/16 11:02 PM) Hgb [14.0-18.0 g/dL] 9.5 g/dL *LOW* (07/24/16 11:02 PM) Hct [42.0-54.0 %] 29.9 % *LOW* (07/24/16 11:02 PM) MCV [80.0-94.0 fL] 87.1 fL (07/24/16 11:02 PM) MCH [27.0-31.0 pg] 27.5 pg (07/24/16 11:02 PM) MCHC [32.0-36.0 31.6 g/dL g/dL] *LOW* (07/24/16 11:02 PM) RDW [11.5-14.5 %] 15.8 % *HI* (07/24/16 11: PM) Platelet [133-450 261 K/CMM K/CMM] (07/24/16 11:02 PM) MPV [7.4-10.4 fL] 7.3 fL *LOW* (07/24/16 11:02 PM) Segs [45.0-75.0 %] 48.0 % (07/24/16 11:02 PM) Lymphocytes 31.7 % [20.0-40.0 %] (07/24/16 11:02 PM) Monocytes [2.0-12.0 14.3 % %] *HI* (07/24/16 11:02 PM) Eosinophils [0.0-4.0 5.3 % %] *HI* (07/24/16 11:02 PM) Basophils [0.0-1.0 0.7 % %] (07/24/16 11:02 PM) Segs-Bands # 4.2 K/CMM [1.5-8.1 K/CMM] (07/24/16 11:02 PM) Lymphocytes # 2.8 K/CMM [1.0-5.5 K/CMM] (07/24/16 11:02 PM) Monocytes # [0.0-0.8 1.3 K/CMM K/CMM] *HI* (07/24/16 11:02 PM) Eosinophils # 0.5 K/CMM [0.0-0.5 K/CMM] (07/24/16 11:02 PM) Basophils # [0.0-0.2 0.1 K/CMM K/CMM] (07/24/16 11:02 PM) Immunizations Given and Recorded Vaccine Date Status [...] hours Assessment and Plan Extracted from: Title: Clinical Document Author: Lacy Morel MD Date: 07/25/16 Progress Note - Daily [facility] Completed: Jun, 14:19 by Lacy Morel MD RM: 323 - 01, [id number] [id number] (: 1960) M Attending: Fer De La Garza: Service: Internal Medicine Reason for Admission: FLUID OVERLOAD, DIALYSIS PATIENT Working DRG: Other factors influencing health status Code status: Full Code [Ordered]Current diet: Isolation: None Documented Allergies: Tylenol, aspirin SUBJECTIVE Patient with mild SOB OBJECTIVE VSS chest-decreased BS CVS-RRR Abd-soft BS+ Ext-trace edema 24hr Labs 07/25 1053 Glucose [id number] H 07/25 0631 Glucose SJR036 H 07/25 0341 Glucose PBI543 H 07/24 2302 Sodium Cba638 Potassium Lvl3.7 Chloride Lpj164 CO234 H AGAP8.7 L Glucose Zkk839 H Creatinine Lvl4.02 H BUN19 B/C Ratio5 L Total Protein8.7 H Albumin Lvl2.5 L Globulin6.2 H A/G Ratio0.4 L Calcium Lvl8.3 L ALT11 AST13 Alk Phos74 Bili Total0.4 eGFR18 Total CK144 Troponin-I0.02 CK MB6.7 H CK MB Index4.7 H LLR562 H WBC8.8 RBC3.44 L Hgb9.5 L Hct29.9 L MCV87.1 MCH27.5 MCHC31.6 L RDW15.8 H Qqijxztt151 MPV7.3 L Segs48.0 Ervfdsapb06.3 H Zatsjospnhl89.7 Eosinophils5.3 H Basophils0.7 Segs-Bands #4.2 Lymphocytes #2.8 Monocytes #1.3 H Eosinophils #0.5 Basophils #0.1 [place] still necessary (Yes/No): Line still necessary (Yes/No): VitalsTmp(F)[id number] 07/25 11:091813933/84--99--- 07/25 10:11 98--- 07/25 07:4597.811457/858287--- 07/25 04:18 97 3.0L/m 07/25 04:1597.878332/[id number]--- 24 Hr Tmax: 99.3F (37.39c) at 07/24 21:55Vital Signs are the last 5 in the past 48 hours. DateWt(kg)Wt(lb)Ht(cm)Ht(in)Method 07/25 61.36 135.46939.56 64.00Estimated 07/24 (initial) 63.64 140.99790.40 60.00Estimated I&ORecordInOutBal 06/2923hr Tot 200 0 200 06/2823hr Tot 0 0 0 Medications () Active Scheduled Meds (8): 07/25/16 amLODIPine 10 mg PO Daily 07/25/16 carvedilol 3.125 mg PO Q12H 07/25/16 cloNIDine (cloNIDine 0.1 mg oral tablet) 0.1 mg PO TID 07/25/16 famotidine (Pepcid 20 mg oral tablet) 20 mg PO Daily 07/25/16 glyBURIDE 5 mg PO Daily 07/25/16 hydrALAZINE (hydrALAZINE 25 mg oral tablet) 50 mg PO TID 07/25/16 isosorbide mononitrate 120 mg PO Before Breakfast 07/25/16 lisinopril 40 mg PO Daily Unscheduled Meds (1): 07/25/16 pneumococcal 13-valent vaccine 0.5 mL IM ONCALL PRN Meds (20): 07/25/16 Dextrose 50% in Water IV (Dextrose 50% Syringe) 12.5 gm IVP PRN 07/25/16 Dextrose 50% in Water IV (Dextrose 50% Syringe) 25 gm IVP PRN 07/25/16 acetaminophen-hydrocodone (acetaminophen-hydrocodone 325 mg-5 mg oral tablet) 1 tab PO Q4H 07/25/16 acetaminophen 650 mg PO Q4H 07/25/16 albuterol-ipratropium (DuoNeb inhalation solution) 3 ml NEB PRN 07/25/16 glucagon 1 mg IM PRN 07/25/16 hydrALAZINE 10 mg IVP Q6H 07/25/16 insulin aspart 2 unit SUB-Q TID-Before Meals 07/25/16 insulin aspart 4 unit SUB-Q TID-Before Meals 07/25/16 insulin aspart 6 unit SUB-Q TID-Before Meals 07/25/16 insulin aspart 8 unit SUB-Q TID-Before Meals 07/25/16 insulin aspart 10 unit SUB-Q TID-Before Meals 07/25/16 insulin aspart 1 unit SUB-Q Bedtime 07/25/16 insulin aspart 2 unit SUB-Q Bedtime 07/25/16 insulin aspart 3 unit SUB-Q Bedtime 07/25/16 insulin aspart 4 unit SUB-Q Bedtime 07/25/16 morphine Sulfate 2 mg IVP Q4H 07/25/16 nitroglycerin (nitroglycerin 0.4 mg sublingual tablet) 0.4 mg SL Q5Min 07/25/16 ondansetron 4 mg IVP Q6H 07/24/16 sodium chloride (Saline Flush 0.9%) 10 mL IVP PRN One Time Meds: None Continuous Infusions: None ASSESSMENT & EXAM ESRD Fluid overload HTN DM PLAN & TREATMENT HD today 3.5 hours 3K 140Na 35HCO3 DIAGNOSES & PROBLEMS Ready for Discharge (Yes/No)? TEACHING ATTESTATION
--- OUTSIDE RECORDS SUMMARY | 2018-05-16 23:39 | XMS REPORT | Summary of Care ---
Author Author [facility] Organization [facility] Address Unknown Phone Unavailable Encounter URIEL Ruiz(WILDER) [id number] Date(s): 12/29/16 - 01/01/17 [facility] [address], [place] [id number]- [phone] Discharge Disposition: Other Healthcare Facility Attending Physician: Lauro Krause MD Admitting Physician: Lauro Krause MD Vital Signs 1 2 3 Most recent to oldest [Reference Range]: 177.8 cm (12/29/16 11:17 AM) Height 49.9 kg (01/01/17 4:24 AM) 49.9 kg (12/31/16 7:34 AM) Current Weight 98.3 DegF (01/01/17 4:00 PM) 98.8 DegF (01/01/17 12:00 PM) 98.9 DegF (01/01/17 8:00 AM) Temperature Oral [96.4-99.1 DegF] 155/77 mmHg *HI* (01/01/17 4:00 PM) 143/70 mmHg *HI* (01/01/17 12:00 PM) 161/76 mmHg *HI* (01/01/17 8:00 AM) Blood Pressure [90-140/60-90 mmHg] 19 BRMIN (01/01/17 4:00 PM) 19 BRMIN (01/01/17 12:00 PM) 18 BRMIN (01/01/17 8:00 AM) Respiratory Rate [14-20 BRMIN] 88 bpm (01/01/17 4:00 PM) 91 bpm (01/01/17 12:00 PM) 97 bpm (01/01/17 8:00 AM) Peripheral Pulse Rate [60-100 bpm] 50.909 kg (12/30/16 3:33 AM) 59.091 kg (12/29/16 11:17 AM) Weight 18.69 m2 (12/29/16 11:17 AM) Body Mass Index Problem List Condition Effective Dates Status Health Status Informant Asthma(Confirmed) Resolved Bipolar(Confirmed) Active COPD(Confirmed) Active Diabetes Active mellitus(Confirmed) ESRD (end stage Active renal disease)(Confirmed) HTN - Active Hypertension(Confirm ed) MRSA(Confirmed)1 Active Schizophrenia(Confir Active med) 1Problem added by Discern Expert. Allergies, Adverse Reactions, Alerts Substance Reaction Severity Status aspirin Active penicillins Active Tylenol1 Active 1pt states he swells up when he takes tylenol Medications Aquaphor 1 appl, TOP, Daily, 0 Refill(s) Start Date: 12/29/16 Status: Ordered carvedilol 3.125 mg, 1 tab, Route: PO, Drug form: TAB, Q12H, Dosing Weight 59.091, kg, Star t date: 12/29/16 21:00:00 CDT, Duration: 30 day, Stop date: 01/28/17 9:00:00 CDT Notes: Give with food. (Same As: Coreg) Start Date: 12/29/16 Stop Date: 01/02/17 Status: Discontinued cloNIDine 0.1 mg oral tablet 0.1 mg, 1 tab, Route: PO, Drug form: TAB, TID, Dosing Weight 59.091, kg, Start d ate: 12/29/16 17:00:00 CDT, Duration: 30 day, Stop date: 01/28/17 13:00:00 CDT Notes: (Same As: Rosalbaapradelia) Start Date: 12/29/16 Stop Date: 12/31/16 Status: Discontinued cloNIDine 0.1 mg oral tablet 0.1 mg=1 tab, PO, Q8H, hold for sbp < 130 or HR < 60, 0 Refill(s) Start Date: 12/29/16 Stop Date: 12/31/16 Status: Discontinued D5NS 1,000 mL 1,000 mL, Rate: 20 ml/hr, Infuse over: 50 hr, Route: IV, Dosing Weight 59.091 kg , Total Volume: 1,000, Start date: 12/29/16 14:12:00 CDT, Duration: 30 day, Stop date: 01/28/17 14:11:00 CDT Start Date: 12/29/16 Stop Date: 01/02/17 Status: Discontinued Dextrose 50% Syringe 25 gm, 50 mL, Route: IVP, Drug Form: INJ, Dosing Weight 59.091, kg, ONCE, STAT, Start date: 12/29/16 12:32:00 CDT, Stop date: 12/29/16 12:32:00 CDT Start Date: 12/29/16 Stop Date: 12/29/16 Status: Completed diphenhydrAMINE 25 mg oral tablet 25 mg=1 tab, PO, Q6H, PRN as needed for itching, 0 Refill(s) Start Date: 12/29/16 Stop Date: 12/31/16 Status: Discontinued DuoNeb inhalation solution 3 mL, Route: NEB, Drug Form: SOLN, Dosing Weight 59.091, kg, QID, Start date: 17:00:00 CDT, Duration: 30 day, Stop date: 01/28/17 13:00:00 CDT Notes: (Same as: Duoneb) Start Date: 12/29/16 Stop Date: 01/02/17 Status: Discontinued DuoNeb inhalation solution 3 ml, INHALATION, QID, PRN as needed for shortness of breath or wheezing, # 30 e a, 0 Refill(s) Start Date: 12/29/16 Status: Ordered glyBURIDE 5 mg oral tablet 5 mg=1 tab, PO, BID-Meals, # 60 tab, 1 Refill(s) Start Date: 12/29/16 Stop Date: 01/01/17 Status: Discontinued hydrALAZINE 25 mg oral tablet 50 mg, 2 tab, Route: PO, Drug form: TAB, TID, Dosing Weight 59.091, kg, Start da te: 12/29/16 17:00:00 CDT, Duration: 30 day, Stop date: 01/28/17 13:00:00 CDT Notes: (Same as: Apresoline) May interfere w/enteral feedings Take With Food. Start Date: 12/29/16 Stop Date: 12/31/16 Status: Discontinued hydrALAZINE 50 mg oral tablet 50 mg=1 tab, PO, Q8H, hold for sbp < 130 or HR < 60, 0 Refill(s) Start Date: 12/29/16 Stop Date: 12/31/16 Status: Discontinued isosorbide mononitrate 120 mg, 2 tab, Route: PO, Drug form: ERTAB, QAM, Dosing Weight 59.091, kg, Start date: 12/30/16 9:00:00 CDT, Duration: 30 day, Stop date: 01/28/17 9:00:00 CDT Notes: (Same as:Ervin)"Do Not Crush" Take on empty stomach/ full glass of water . Do not crush Start Date: 12/30/16 Stop Date: 01/02/17 Status: Discontinued lactulose 10 g/15 mL oral syrup 20 gm=30 mL, PO, Bedtime Start Date: 12/29/16 Status: Ordered lisinopril 10 mg, 1 tab, Route: PO, Drug form: TAB, Daily, Dosing Weight 59.091, kg, Start date: 12/30/16 9:00:00 CDT, Duration: 30 day, Stop date: 01/28/17 9:00:00 CDT Notes: (Same as: Prinivil, Zestril) Start Date: 12/30/16 Stop Date: 01/02/17 Status: Discontinued lisinopril 20 mg oral tablet 20 mg=1 tab, PO, Daily, hold for sbp < 130 or HR < 60, # 30 tab, 0 Refill(s) Start Date: 12/29/16 Status: Ordered Lyrica 25 mg oral capsule 25 mg=1 cap, PO, Daily, # 30 cap, 0 Refill(s) Start Date: 12/29/16 Status: Ordered Norvasc 5 mg, 1 tab, Route: PO, Drug form: TAB, Daily, Dosing Weight 59.091, kg, Start d ate: 12/30/16 9:00:00 CDT, Duration: 30 day, Stop date: 01/28/17 9:00:00 CDT Notes: (Same as: Norvasc) Start Date: 12/30/16 Stop Date: 01/02/17 Status: Discontinued NovoLOG sliding scale, SUB-Q, Before Meals & Bedtime, 0 Refill(s) Start Date: 12/29/16 Stop Date: 01/01/17 Status: Discontinued ondansetron 4 mg, 2 mL, Route: IVP, Drug form: INJ, ONCE, Dosing Weight 59.091, kg, Priority : STAT, Start date: 12/29/16 12:34:00 CDT, Stop date: 12/29/16 12:34:00 CDT Notes: (Same as: Savita) MEDICATION WASTE Product Size: 4 mgProduct Was yecenia: ___ mg Start Date: 12/29/16 Stop Date: 12/29/16 Status: Completed Senna S oral tablet 2 tab, PO, BID Start Date: 12/29/16 Status: Ordered tramadol 50 mg oral tablet 50 mg=1 tab, PO, TID, PRN Pain Score 4-6 Start Date: 12/29/16 Stop Date: 12/30/16 Status: Discontinued Results ELECTROLYTES 1 2 3 Most recent to oldest [Reference Range]: 137 mEq/L (01/01/17 4:27 AM) 137 mEq/L (12/31/16 4:02 AM) 137 mEq/L (12/30/16 3:24 PM) Sodium Lvl [135-145 mEq/L] 3.6 mEq/L (01/01/17 4:27 AM) 4.5 mEq/L (12/31/16 4:02 AM) 4.8 mEq/L (12/30/16 3:24 PM) Potassium Lvl [3.5-5.1 mEq/L] 102 mEq/L (01/01/17 4:27 AM) 102 mEq/L (12/31/16 4:02 AM) 98 mEq/L (12/30/16 3:24 PM) Chloride Lvl [95-109 mEq/L] 23 mEq/L *LOW* (01/01/17 4:27 AM) 23 mEq/L *LOW* (12/31/16 4:02 AM) 26 mEq/L (12/30/16 3:24 PM) CO2 [24-32 mEq/L] 15.6 mEq/L (01/01/17 4:27 AM) 16.5 mEq/L (12/31/16 4:02 AM) 17.8 mEq/L (12/30/16 3:24 PM) AGAP [10.0-20.0 mEq/L] CHEM PANEL 1 2 3 Most recent to oldest [Reference Range]: 4.40 mg/dL *HI* (01/01/17 4:27 AM) 6.10 mg/dL *HI* (12/31/16 4:02 AM) 5.80 mg/dL *HI* (12/30/16 3:24 PM) Creatinine Lvl [0.50-1.40 mg/dL] 16 mL/min/1.73m2 1 *NA* (01/01/17 4:27 AM) 11 mL/min/1.73m2 2 *NA* (12/31/16 4:02 AM) 11 mL/min/1.73m2 3 *NA* (12/30/16 3:24 PM) eGFR 37 mg/dL *HI* (01/01/17 4:27 AM) 59 mg/dL *HI* (12/31/16 4:02 AM) 46 mg/dL *HI* (12/30/16 3:24 PM) BUN [7-22 mg/dL] 50 mg/dL 4 *CRIT* (01/01/17 4:27 AM) 132 mg/dL *HI* (12/31/16 4:02 AM) 257 mg/dL *HI* (12/30/16 3:24 PM) Glucose Lvl [70-99 mg/dL] 10.1 g/dL *HI* (12/29/16 12:01 PM) Total Protein [6.4-8.4 g/dL] 2.9 g/dL *LOW* (12/29/16 12:01 PM) Albumin Lvl [3.5-5.0 g/dL] 7.2 g/dL *HI* (12/29/16 12:01 PM) Globulin [2.7-4.2 g/dL] 0.4 *LOW* (12/29/16 12:01 PM) A/G Ratio [0.7-1.6] 8.3 mg/dL *LOW* (01/01/17 4:27 AM) 8.0 mg/dL *LOW* (12/31/16 4:02 AM) 7.8 mg/dL *LOW* (12/30/16 3:24 PM) Calcium Lvl [8.5-10.5 mg/dL] 8.2 mg/dL *HI* (12/29/16 12:01 PM) Phosphorus [2.5-4.5 mg/dL] 2.4 mg/dL (12/29/16 12:01 PM) Magnesium Lvl [1.8-2.4 mg/dL] 19 unit/L (12/29/16 12:01 PM) ALT [0-65 unit/L] 38 unit/L *HI* (12/29/16 12: PM) AST [0-37 unit/L] 86 unit/L (12/29/16:01 PM) Alk Phos [39-136 unit/L] 0.5 mg/dL (12/29/16 12:01 PM) Bili Total [0.2-1.3 mg/dL] 0.2 mg/dL (12/29/16:01 PM) Bili Direct [0.0-0.3 mg/dL] 0.3 mg/dL (12/29/16 12:01 PM) Bili Indirect [0.0-1.0 mg/dL] 48 unit/L *LOW* (12/29/16 12:01 PM) Lipase Lvl [73-393 unit/L] 30.0 uMol/L (12/29/16 12:01 PM) Ammonia [<=45.0 uMol/L] 0.8 mMol/L (12/31/16 3:38 PM) 1.8 mMol/L (12/29/16 12:01 PM) Lactic Acid Lvl [0.5-2.2 mMol/L] 21.93 ng/mL 5 *CRIT* (12/31/16 3:38 PM) Procalcitonin Lvl [0.00-0.10 ng/mL] 1Result Comment: [...] BMI. 4Result Comment: Critical Result(s) called to Jovani Hines at 01/01/2017 06:16 byCT. Read back OK. 5Result Comment: Critical Result(s) called to Marlon Stone at 12/31/2016 18:21 by SHIRA. Read back OK. CARDIAC ENZYMES 1 2 3 Most recent to oldest [Reference Range]: 0.07 ng/mL (12/30/16 3:24 PM) 0.11 ng/mL (12/29/16 12:01 PM) Troponin-I [0.00-0.40 ng/mL] SPECIAL CHEMISTRY 1 2 3 Most recent to oldest [Reference Range]: 5.8 % *HI* (12/29/16 3:19 PM) Hgb A1C [<=5.6 %] IMMUNOLOGY 1 2 3 Most recent to oldest [Reference Range]: Negative *NA* (12/29/16 3:19 PM) Hep Bs Ag [Negative] Positive *ABN* (12/29/16 3:19 PM) Hep C Ab HEMATOLOGY 1 2 3 Most recent to oldest [Reference Range]: 15.4 K/CMM *HI* (01/01/17 4:27 AM) 20.5 K/CMM *HI* (12/31/16 4:02 AM) 26.2 K/CMM *HI* (12/30/16 3:24 PM) WBC [3.7-10.4 K/CMM] 3.69 M/CMM *LOW* (01/01/17 4:27 AM) 4.15 M/CMM *LOW* (12/31/16 4:02 AM) 4.42 M/CMM *LOW* (12/30/16 3:24 PM) RBC [4.70-6.10 M/CMM] 9.8 g/dL *LOW* (01/01/17 4:27 AM) 11.3 g/dL *LOW* (12/31/16 4:02 AM) 11.9 g/dL *LOW* (12/30/16 3:24 PM) Hgb [14.0-18.0 g/dL] 31.7 % *LOW* (01/01/17 4:27 AM) 36.5 % *LOW* (12/31/16 4:02 AM) 38.7 % *LOW* (12/30/16 3:24 PM) Hct [42.0-54.0 %] 85.9 fL (01/01/17 4:27 AM) 88.0 fL (12/31/16 4:02 AM) 87.5 fL (12/30/16 3:24 PM) MCV [80.0-94.0 fL] 26.4 pg *LOW* (01/01/17 4:27 AM) 27.2 pg (12/31/16 4:02 AM) 27.0 pg (12/30/16 3:24 PM) MCH [27.0-31.0 pg] 30.7 g/dL *LOW* (01/01/17 4:27 AM) 31.0 g/dL *LOW* (12/31/16 4:02 AM) 30.9 g/dL *LOW* (12/30/16 3:24 PM) MCHC [32.0-36.0 g/dL] 15.8 % *HI* (01/01/17 4:27 AM) 16.0 % *HI* (12/31/16 4:02 AM) 16.2 % *HI* (12/30/16 3:24 PM) RDW [11.5-14.5 %] 214 K/CMM (01/01/17:27 AM) 236 K/CMM (12/31/16 4:02 AM) 282 K/CMM (12/30/16 3:24 PM) Platelet [133-450 K/CMM] 7.5 fL (01/01/17:27 AM) 7.9 fL (12/31/16 4:02 AM) 8.1 fL (12/30/16 3:24 PM) MPV [7.4-10.4 fL] 75.7 % *HI* (01/01/17 4:27 AM) 83.1 % *HI* (12/31/16 4:02 AM) 91.8 % *HI* (12/30/16 3:24 PM) Segs [45.0-75.0 %] 12.3 % *LOW* (01/01/17 4:27 AM) 6.9 % *LOW* (12/31/16 4:02 AM) 4.4 % *LOW* (12/30/16 3:24 PM) Lymphocytes [20.0-40.0 %] 11.5 % (01/01/17 4:27 AM) 9.8 % (12/31/16 4:02 AM) 3.7 % (12/30/16 3:24 PM) Monocytes [2.0-12.0 %] 0.1 % (01/01/17 4:27 AM) 0.0 % (12/30/16 3:24 PM) 0.0 % (12/29/16 12:01 PM) Eosinophils [0.0-4.0 %] 0.4 % (01/01/17 4:27 AM) 0.2 % (12/31/16 4:02 AM) 0.1 % (12/30/16 3:24 PM) Basophils [0.0-1.0 %] 11.7 K/CMM *HI* (01/01/17 4:27 AM) 17.0 K/CMM *HI* (12/31/16 4:02 AM) 24.0 K/CMM *HI* (12/30/16 3:24 PM) Segs-Bands # [1.5-8.1 K/CMM] 1.9 K/CMM (01/01/17 4:27 AM) 1.4 K/CMM (12/31/16 4:02 AM) 1.2 K/CMM (12/30/16 3:24 PM) Lymphocytes # [1.0-5.5 K/CMM] 1.8 K/CMM *HI* (01/01/17 4:27 AM) 2.0 K/CMM *HI* (12/31/16 4:02 AM) 1.0 K/CMM *HI* (12/30/16 3:24 PM) Monocytes # [0.0-0.8 K/CMM] 0.0 K/CMM (12/30/16 3:24 PM) 0.0 K/CMM (12/29/16 12:01 PM) Eosinophils # [0.0-0.5 K/CMM] 0.1 K/CMM (01/01/17 4:27 AM) 0.0 K/CMM (12/30/16 3:24 PM) 0.0 K/CMM (12/29/16 12:01 PM) Basophils # [0.0-0.2 K/CMM] 14.9 seconds *HI* (12/29/16 12:01 PM) PT [12.0-14.7 seconds] 1.15 (12/29/16 12:01 PM) INR [0.85-1.17] MOLECULAR DIAGNOSTIC 1 2 3 Most recent to oldest [Reference Range]: Detected *ABN* (12/31/16 3:38 PM) S. aureus [Not Detected] Not Detected (12/31/16 3:38 PM) S. epidermidis [Not Detected] Not Detected (12/31/16 3:38 PM) S. lugdunensis [Not Detected] Not Detected (12/31/16 3:38 PM) S. anginosus grp [Not Detected] Not Detected (12/31/16 3:38 PM) S. agalactiae [Not Detected] Not Detected (12/31/16 3:38 PM) S. pneumoniae [Not Detected] Not Detected (12/31/16 3:38 PM) S. pyogenes [Not Detected] Not Detected (12/31/16 3:38 PM) E. faecalis [Not Detected] Not Detected (12/31/16 3:38 PM) E. faecium [Not Detected] Detected *ABN* (12/31/16 3:38 PM) Staphylococcus spp. [Not Detected] Not Detected (12/31/16 3:38 PM) Streptococcus spp. [Not Detected] Not Detected (12/31/16 3:38 PM) Listeria spp. [Not Detected] Detected *ABN* (12/31/16 3:38 PM) mecA Methicillin Resistance [Not Detected] Not Detected (12/31/16 3:38 PM) Rody Vancomycin Resistance [Not Detected] Not Detected (12/31/16 3:38 PM) vanB Vancomycin Resistance [Not Detected] Immunizations Given and Recorded Vaccine Date Status Refusal Reason influenza virus vaccine, inactivated 05/15/15 Given influenza virus vaccine, inactivated 05/21/13 Given influenza virus vaccine, inactivated 04/12/12 Given pneumococcal 23-valent vaccine 05/15/15 Given pneumococcal 23-valent vaccine 04/12/12 Given Procedures Procedure Date Related Diagnosis Body Site Hemodialysis Social History Social History Type Response Substance Abuse Use: Past. Type: Amphetamines. Amount: marijuana. Frequency: 1-2 times per week. [...] hours Assessment and Plan Extracted from: Title: Renal Progress Note * Author: Den Pedro MD Date: 01/01/17 Impression and Plan ESRD on hemodialysis TTS Anemia in CKD H/O Schizophrenia COPD Hypoglycemia Cognitive impairment Plan: No HD today HD tomorrow per TTS BP is controlled If d/reinier resume OP HDD D/w RN Extracted from: Title: Initial Renal Consultation Author: Enid Pedro MD Date: 12/29/16 Impression and Plan ESRD receing hemodialysis TTS schedule Hypoglycemia with H/O DM type 2 Hypertensive heart disease H/O Schizophrenia H/O Bipolar dissorder COPD Plan: HD today per regular scheudle;UF as tolerated restart home BP medications continue antipsychotics monitor blood sugar off insulin Thank you Dr Krause for letting me particpate in the care of this patient; i will follow along with you
--- OUTSIDE RECORDS SUMMARY | 2018-05-16 23:39 | XMS REPORT | Summary of Care ---
Author Author [facility] Organization [facility] Address Unknown Phone Unavailable Encounter URIEL Ruiz(WILDER) [id number] Date(s): 07/07/17 - 07/08/17 [facility] [address] [place] [address]- Discharge Disposition: Longterm Facility Attending Physician: Marilee Dalal DO Admitting Physician: Marilee Dalal DO Vital Signs 1 2 3 Most recent to oldest [Reference Range]: 172.72 cm (07/07/17 8:00 PM) 162.56 cm (07/07/17 9:34 AM) Height 97.8 DegF (07/08/17 4:45 PM) 98.6 DegF (07/08/17 12:32 PM) 98.2 DegF (07/08/17 8:00 AM) Temperature Oral [96.4-99.1 DegF] 117/87 mmHg (07/08/17 4:45 PM) 179/90 mmHg *HI* (07/08/17 12:32 PM) 158/85 mmHg *HI* (07/08/17 8:00 AM) Blood Pressure [90-140/60-90 mmHg] 20 BRMIN (07/08/17 4:45 PM) 21 BRMIN *HI* (07/08/17 12:32 PM) 20 BRMIN (07/08/17 8:00 AM) Respiratory Rate [14-20 BRMIN] 82 bpm (07/07/17 9:34 AM) Peripheral Pulse Rate [60-100 bpm] 65.909 kg (07/07/17 8:00 PM) 62 kg (07/07/17 9:34 AM) Weight 22.09 m2 (07/07/17 8:00 PM) 23.46 m2 (07/07/17 9:34 AM) Body Mass Index Problem List Condition Effective Dates Status Health Status Informant Asthma(Confirmed) Resolved COPD(Confirmed) Active Diabetes Active mellitus(Confirmed) ESRD (end stage Active renal disease)(Confirmed) HTN - Active Hypertension(Confirm ed) MRSA(Confirmed)1, 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 Allergies, Adverse Reactions, Alerts Substance Reaction Severity Status aspirin Active Tylenol1 Active 1pt states he swells up when he takes tylenol Medications Aquaphor Healing topical ointment 1 appl, TOP, Daily, (bilateral lower extremities) Start Date: 07/07/17 Status: Ordered cefepime + Sodium Chloride 0.9% IV 100 mL 1 gm, Route: IVPB, Drug form: INJ, ONCE, Dosing Weight 62, kg, Priority: STAT, S tart date: 07/07/17 12:07:00 CDT, Stop date: 07/07/17 12:07:00 CDT, ABX Indicati on: Pneumonia Notes: (Same As: Maxipime) MEDICATION WASTE Product Size: 1000 mgProduc t Wasted: ___ mg Start Date: 07/07/17 Stop Date: 07/07/17 Status: Completed cefepime + Sodium Chloride 0.9% IV 100 mL 1 gm, Route: IVPB, [id number], Dosing Weight 62, kg, (CrCl <10 ml/min or IHD), Start date: 07/08/17 13:00:00 CDT, Duration: 10 day, Stop date: 07/17/17 13:00:00 CDT, ABX Indication: Pneumonia Notes: (Same As: Maxipime) MEDICATION WASTE Product Size: 1000 mgProduc t Wasted: ___ mg Start Date: 07/08/17 Stop Date: 07/08/17 Status: Canceled cloNIDine 0.1 mg oral tablet 0.1 mg, 1 tab, Route: PO, Drug form: TAB, Q6H, Dosing Weight 62, kg, PRN Elevate d BP, Start date: 07/07/17 17:34:00 CDT, Duration: 30 day, Stop date: 08/06/17 1 7:33:00 CDT Notes: (Same As: Catapres) Start Date: 07/07/17 Stop Date: 07/08/17 Status: Discontinued cloNIDine 0.1 mg oral tablet 0.1 mg=1 tab, PO, Q6H, PRN Elevated BP, (for SBP > 160) Start Date: 07/07/17 Status: Ordered Coreg 3.125 mg, 1 tab, Route: PO, Drug form: TAB, Q12H, Dosing Weight 62, kg, Start da te: 07/07/17 21:00:00 CDT, Duration: 30 day, Stop date: 08/06/17 9:00:00 CDT Notes: Give with food. (Same As: Coreg) Start Date: 07/07/17 Stop Date: 07/08/17 Status: Discontinued Coreg 3.125 mg oral tablet 3.125 mg=1 tab, PO, Q12H Start Date: 07/07/17 Status: Ordered Cytotec 200 mcg oral tablet 200 microgram=1 tab, PO, BID-Before Meals Start Date: 07/07/17 Status: Ordered Dextrose 50% Syringe 25 gm, 50 mL, Route: IVP, Drug Form: INJ, Dosing Weight 62, kg, PRN, PRN Blood G lucose Results, Start date: 07/07/17 17:46:00 CDT, Duration: 30 day, Stop date: 08/06/17 17:45:00 CDT Start Date: 07/07/17 Stop Date: 07/08/17 Status: Discontinued Dextrose 50% Syringe 12.5 gm, 25 mL, Route: IVP, Drug Form: INJ, Dosing Weight 62, kg, PRN, PRN Blood Glucose Results, Start date: 07/07/17 17:46:00 CDT, Duration: 30 day, Stop date: 08/06/17 17:45:00 CDT Start Date: 07/07/17 Stop Date: 07/08/17 Status: Discontinued docusate-senna 50 mg-8.6 mg oral tablet 1 tab, Route: PO, Drug Form: TAB, Dosing Weight 62, kg, BID, Start date: 8 9:00:00 CDT, Duration: 30 day, Stop date: 08/06/17 17:00:00 CDT Notes: (Same as Chiquita-S) Equiv. to Gita-Colace. Start Date: 07/08/17 Stop Date: 07/08/17 Status: Discontinued DuoNeb inhalation solution 3 mL, NEB, QID, PRN as needed for shortness of breath or wheezing Start Date: 07/07/17 Status: Ordered DuoNeb inhalation solution 3 mL, Route: NEB, Drug Form: SOLN, Dosing Weight 62, kg, QID, PRN as needed for shortness of breath or wheezing, Start date: 07/07/17 17:34:00 CDT, Duration: 30 day, Stop date: 08/06/17 17:33:00 CDT Notes: (Same as: Duoneb) Start Date: 07/07/17 Stop Date: 07/08/17 Status: Discontinued GI cocktail 30 ml, Route: PO, Drug Form: SUSP, Dosing Weight 62, kg, BID, PRN Heartburn, Rou sen, Start date: 07/07/17 17:33:00 CDT, Duration: 30 day, Stop date: 08/06/17 1 7:32:00 CDT Notes: G.I. Cocktail=antacid with simethicone 22.5 mL - lidocaine viscous 7.5 mL Start Date: 07/07/17 Stop Date: 07/08/17 Status: Discontinued GI cocktail 30 mL, Route: PO, Drug Form: SUSP, Dosing Weight 62, kg, ONCE, STAT, Start date: 07/07/17 10:42:00 CDT, Stop date: 07/07/17 10:42:00 CDT Notes: G.I. Cocktail=antacid with simethicone 22.5 mL - lidocaine viscous 7.5 mL Start Date: 07/07/17 Stop Date: 07/07/17 Status: Completed glucagon 1 mg, Route: IM, Drug form: PDR/INJ, PRN, Dosing Weight 62, kg, PRN Blood Glucos e Results, Start date: 07/07/17 17:46:00 CDT, Duration: 30 day, Stop date: 08/06 17:45:00 CDT Start Date: 07/07/17 Stop Date: 07/08/17 Status: Discontinued glucagon recombinant 1 mg injection 1 mg, IM, Q15Min, PRN Blood Glucose Results, (Blood Glucose less than 60 mg/dL) Start Date: 07/07/17 Stop Date: 07/08/17 Status: Discontinued heparin 5,000 unit, 1 mL, Route: SUB-Q, Drug form: INJ, Q12H, Dosing Weight 62, kg, Star t date: 07/07/17 21:00:00 CDT, Duration: 30 day, Stop date: 08/06/17 9:00:00 CDT Notes: porcine heparin Start Date: 07/07/17 Stop Date: 07/08/17 Status: Discontinued hydrALAZINE 25 mg oral tablet 25 mg, 1 tab, Route: PO, Drug form: TAB, Q8H, Dosing Weight 62, kg, Start date: 07/08/17 0:00:00 CDT, Duration: 30 day, Stop date: 08/06/17 16:00:00 CDT Notes: (Same as: Apresoline) May interfere w/enteral feedings Take With Food. Start Date: 07/08/17 Stop Date: 07/08/17 Status: Discontinued hydrALAZINE 25 mg oral tablet 25 mg=1 tab, PO, Q8H, (Hold for SBP < 130 or HR < 60) Start Date: 07/07/17 Status: Ordered insulin glargine 20 unit, 0.2 mL, Route: SUB-Q, Drug form: SOLN, QAM, Start date: 07/08/17 9:00:0 0 CDT, Duration: 30 day, Stop date: 08/06/17 9:00:00 CDT Notes: (Same as: Lantus)Do not hold insulin without contacting prescriberWASTE: F/P - Black; E - Municipal Trash Bin "single patient use only" Start Date: 07/08/17 Stop Date: 07/08/17 Status: Discontinued insulin lispro 1 unit, 0.01 mL, Route: SUB-Q, Drug form: SOLN, Bedtime, Dosing Weight 62, kg, P RN Blood Glucose Results, Start date: 07/07/17 17:46:00 CDT, Duration: 30 day, S top date: 08/06/17 17:45:00 CDT Notes: (Same as: Humalog ) Roll in palms of hands gently; Do not shake `vigorou sly. "Single Patient Use Only " WASTE: F/P - Black; E - [facility] Trash [address] St able for 28 days at room temperature.Expires in days from Da te Start Date: 07/07/17 Stop Date: 07/08/17 Status: Discontinued insulin lispro 3 unit, 0.03 mL, Route: SUB-Q, Drug form: SOLN, Bedtime, Dosing Weight 62, kg, P RN Blood Glucose Results, Start date: 07/07/17 17:46:00 CDT, Duration: 30 day, S top date: 08/06/17 17:45:00 CDT Notes: (Same as: Humalog ) Roll in palms of hands gently; Do not shake `vigorou sly. "Single Patient Use Only " WASTE: F/P - Black; E - [facility] [address] St able for 28 days at room temperature.Expires in days from Da te Start Date: 07/07/17 Stop Date: 07/08/17 Status: Discontinued insulin lispro 2 unit, 0.02 mL, Route: SUB-Q, Drug form: SOLN, Bedtime, Dosing Weight 62, kg, P RN Blood Glucose Results, Start date: 07/07/17 17:46:00 CDT, Duration: 30 day, S top date: 08/06/17 17:45:00 CDT Notes: (Same as: Humalog ) Roll in palms of hands gently; Do not shake `vigorou sly. "Single Patient Use Only " WASTE: F/P - Black; E - [facility] [address] St able for 28 days at room temperature.Expires in days from Da te Start Date: 07/07/17 Stop Date: 07/08/17 Status: Discontinued insulin lispro 4 unit, 0.04 mL, Route: SUB-Q, Drug form: SOLN, Bedtime, Dosing Weight 62, kg, P RN Blood Glucose Results, Start date: 07/07/17 17:46:00 CDT, Duration: 30 day, S top date: 08/06/17 17:45:00 CDT Notes: (Same as: Humalog ) Roll in palms of hands gently; Do not shake `vigorou sly. "Single Patient Use Only " WASTE: F/P - Black; E - [facility] [address] St able for 28 days at room temperature.Expires in days from Da te Start Date: 07/07/17 Stop Date: 07/08/17 Status: Discontinued insulin lispro 4 unit, 0.04 mL, Route: SUB-Q, Drug form: SOLN, TID-Before Meals, Dosing Weight 62, kg, PRN Blood Glucose Results, Start date: 07/07/17 17:46:00 CDT, Duration: 30 day, Stop date: 08/06/17 17:45:00 CDT Notes: (Same as: Humalog ) Roll in palms of hands gently; Do not shake `vigorou sly. "Single Patient Use Only " WASTE: F/P - Black; E - [facility] [address] St able for 28 days at room temperature.Expires in days from Da te Start Date: 07/07/17 Stop Date: 07/08/17 Status: Discontinued insulin lispro 2 unit, 0.02 mL, Route: SUB-Q, Drug form: SOLN, TID-Before Meals, Dosing Weight 62, kg, PRN Blood Glucose Results, Start date: 07/07/17 17:46:00 CDT, Duration: 30 day, Stop date: 08/06/17 17:45:00 CDT Notes: (Same as: Humalog ) Roll in palms of hands gently; Do not shake `vigorou sly. "Single Patient Use Only " WASTE: F/P - Black; E - [facility] [address] St able for 28 days at room temperature.Expires in days from Da te Start Date: 07/07/17 Stop Date: 07/08/17 Status: Discontinued insulin lispro 8 unit, 0.08 mL, Route: SUB-Q, Drug form: SOLN, TID-Before Meals, Dosing Weight 62, kg, PRN Blood Glucose Results, Start date: 07/07/17 17:46:00 CDT, Duration: 30 day, Stop date: 08/06/17 17:45:00 CDT Notes: (Same as: Humalog ) Roll in palms of hands gently; Do not shake `vigorou sly. "Single Patient Use Only " WASTE: F/P - Black; E - [facility] [address] St able for 28 days at room temperature.Expires in days from Da te Start Date: 07/07/17 Stop Date: 07/08/17 Status: Discontinued insulin lispro 6 unit, 0.06 mL, Route: SUB-Q, Drug form: SOLN, TID-Before Meals, Dosing Weight 62, kg, PRN Blood Glucose Results, Start date: 07/07/17 17:46:00 CDT, Duration: 30 day, Stop date: 08/06/17 17:45:00 CDT Notes: (Same as: Humalog ) Roll in palms of hands gently; Do not shake `vigorou sly. "Single Patient Use Only " WASTE: F/P - Black; E - [facility] [address] St able for 28 days at room temperature.Expires in days from Da te Start Date: 07/07/17 Stop Date: 07/08/17 Status: Discontinued insulin lispro 10 unit, 0.1 mL, Route: SUB-Q, Drug form: SOLN, TID-Before Meals, Dosing Weight 62, kg, PRN Blood Glucose Results, Start date: 07/07/17 17:46:00 CDT, Duration: 30 day, Stop date: 08/06/17 17:45:00 CDT Notes: (Same as: Humalog ) Roll in palms of hands gently; Do not shake `vigorou sly. "Single Patient Use Only " WASTE: F/P - Black; E - [facility] [address] St able for 28 days at room temperature.Expires in days from Da te Start Date: 07/07/17 Stop Date: 07/08/17 Status: Discontinued isosorbide mononitrate 120 mg, 4 tab, Route: PO, Drug form: ERTAB, Daily, Dosing Weight 62, kg, Start d ate: 07/08/17 9:00:00 CDT, Duration: 30 day, Stop date: 08/06/17 9:00:00 CDT Notes: (Same as:Imdur)"Do Not Crush" Take on empty stomach/ full glass of water . Do not crush Start Date: 07/08/17 Stop Date: 07/08/17 Status: Discontinued isosorbide mononitrate 120 mg oral tablet, extended release 120 mg=1 tab, PO, Daily, (Hold for SBP < 130 or HR < 60) Start Date: 07/07/17 Status: Ordered lactulose 10 g/15 mL oral syrup 20 gm, 30 mL, Route: PO, Drug form: SYRP, Bedtime, Dosing Weight 62, kg, Start d ate: 07/07/17 21:00:00 CDT, Duration: 30 day, Stop date: 08/05/17 21:00:00 CDT Notes: (Same as:Chronulac) Start Date: 07/07/17 Stop Date: 07/08/17 Status: Discontinued lactulose 10 g/15 mL oral syrup 20 gm=30 mL, PO, Bedtime Start Date: 07/07/17 Status: Ordered Levaquin 750 mg, 150 mL, Route: IVPB, Drug form: SOLN, ONCE, Dosing Weight 62, kg, Start date: 07/07/17 12:07:00 CDT, Stop date: 07/07/17 12:07:00 CDT, ABX Indication: P neumonia Notes: (Same as:Levaquin) Start Date: 07/07/17 Stop Date: 07/07/17 Status: Completed Levemir 20 unit, Route: SUB-Q, Drug form: SOLN, QAM (Insulin), Dosing Weight 62, kg, Sta rt date: 07/08/17 7:30:00 CDT, Duration: 30 day, Stop date: 08/06/17 7:30:00 CDT Start Date: 07/08/17 Stop Date: 07/07/17 Status: Deleted Levemir 100 units/mL 20 unit, SUB-Q, QAM (Insulin) Start Date: 07/07/17 Status: Ordered lisinopril 20 mg, 1 tab, Route: PO, Drug form: TAB, Daily, Dosing Weight 62, kg, Start date : 07/08/17 9:00:00 CDT, Duration: 30 day, Stop date: 08/06/17 9:00:00 CDT Notes: (Same as: PrinivNavarro pryorstril) Start Date: 07/08/17 Stop Date: 07/08/17 Status: Discontinued lisinopril 20 mg oral tablet 20 mg=1 tab, PO, Daily, (Hold for SBP < 130 or HR < 60) Start Date: 07/07/17 Status: Ordered Lyrica 25 mg, 1 cap, Route: PO, Drug form: CAP, Daily, Dosing Weight 62, kg, Start date : 07/08/17 9:00:00 CDT, Duration: 30 day, Stop date: 08/06/17 9:00:00 CDT Notes: (Same as: Lyrica) Start Date: 07/08/17 Stop Date: 07/08/17 Status: Discontinued Lyrica 25 mg oral capsule 25 mg=1 cap, PO, Daily Start Date: 07/07/17 Status: Ordered melatonin 3 mg oral tablet 3 mg=1 tab, PO, Bedtime Start Date: 07/07/17 Status: Ordered melatonin 3 mg oral tablet 3 mg, 1 tab, Route: PO, Drug Form: TAB, Dosing Weight 62, kg, Bedtime, Start adrian e: 07/07/17 21:00:00 CDT, Duration: 30 day, Stop date: 08/05/17 21:00:00 CDT Notes: (Same as: Melatonin) Start Date: 07/07/17 Stop Date: 07/08/17 Status: Discontinued Nitrostat 0.4 mg sublingual tablet 0.4 mg=1 tab, SL, Q5Min, If chest pain not relieved in 5 minutes after first dos e, seek immediate medical attention Start Date: 07/07/17 Status: Ordered Nitrostat 0.4 mg sublingual tablet 0.4 mg, 1 tab, Route: SL, Drug form: TAB, Q5Min, Dosing Weight 62, kg, PRN Angin a, Start date: 07/07/17 17:35:00 CDT, Duration: 30 day, Stop date: 08/06/17 17:3 4:00 CDT Notes: (Same as:Nitroquick, Nitrostat)"Do Not Crush" Sublingual tablet Start Date: 07/07/17 Stop Date: 07/08/17 Status: Discontinued Norvasc 10 mg, 1 tab, Route: PO, Drug form: TAB, Daily, Dosing Weight 62, kg, Start date : 07/08/17 9:00:00 CDT, Duration: 30 day, Stop date: 08/06/17 9:00:00 CDT Notes: (Same as: Norvasc) Start Date: 07/08/17 Stop Date: 07/08/17 Status: Discontinued Norvasc 10 mg oral tablet 10 mg=1 tab, PO, Daily, (Hold for SBP < 130 or HR < 60) Start Date: 07/07/17 Status: Ordered NovoLOG 100 units/mL See Instructions, SUB-Q Before Meals & Bedtime per sliding scale 0-150=0 units 151-200=2 units 201-250=4 units 251-300=6 units 301-350=8 units 351-400=10 units > 400=10 units and call MD Start Date: 07/07/17 Status: Ordered Protonix 40 mg, 1 tab, Route: PO, Drug form: ECTAB, Before Dinner, Dosing Weight 62, kg, Priority: NOW, Start date: 07/07/17 17:34:00 CDT, Duration: 30 day, Stop date: 0 08/06/17 16:30:00 CDT Notes: Tablet should not be chewed or crushed.(Same as: Protonix) Start Date: 07/07/17 Stop Date: 07/08/17 Status: Discontinued Protonix 40 mg oral enteric coated tablet 40 mg=1 tab, PO, Before Breakfast Start Date: 07/07/17 Status: Ordered Sloane-Han Rx oral tablet 1 tab, PO, Daily Start Date: 07/07/17 Status: Ordered Renvela 800 mg, 1 tab, Route: PO, Drug form: TAB, TID-Before Meals, Dosing Weight 62, kg , Start date: 07/08/17 7:30:00 CDT, Duration: 30 day, Stop date: 08/06/17 16:30: 00 CDT Notes: Same as: Renvela Start Date: 07/08/17 Stop Date: 07/08/17 Status: Discontinued Renvela 800 mg oral tablet 800 mg=1 tab, PO, TID-Before Meals Start Date: 07/07/17 Status: Ordered Robitussin 100 mg/5 mL oral liquid 200 mg, 10 mL, Route: PO, Drug form: LIQ, Q6H, Dosing Weight 62, kg, PRN Cough, Start date: 07/07/17 17:34:00 CDT, Duration: 30 day, Stop date: 08/06/17 17:33:0 0 CDT Notes: (Same as: Robitussin) Start Date: 07/07/17 Stop Date: 07/08/17 Status: Discontinued Robitussin 100 mg/5 mL oral liquid 200 mg=10 mL, PO, Q6H, PRN Cough Start Date: 07/07/17 Status: Ordered Saline Flush 0.9% 10 mL, Route: IVP, Drug Form: INJ, Dosing Weight 62, kg, PRN, PRN Line Flush, St art date: 07/07/17 9:47:00 CDT, Duration: 30 day, Stop date: 08/06/17 9:46:00 CD T Notes: Same as: BD Posiflush Sterile Start Date: 07/07/17 Stop Date: 07/08/17 Status: Discontinued Senna S oral tablet 2 tab, PO, BID Start Date: 07/07/17 Status: Ordered SEROquel 50 mg, 2 tab, Route: PO, Drug form: TAB, Bedtime, Dosing Weight 62, kg, Start da te: 07/07/17 21:00:00 CDT, Stop date: 08/05/17 21:00:00 CDT Notes: (Same as: SEROquel) Start Date: 07/07/17 Stop Date: 07/08/17 Status: Discontinued SEROquel 100 mg, 1 tab, Route: PO, Drug form: TAB, Bedtime, Dosing Weight 62, kg, Start d ate: 07/07/17 21:00:00 CDT, Duration: 30 day, Stop date: 08/05/17 21:00:00 CDT Notes: (Same as: SEROquel) Start Date: 07/07/17 Stop Date: 07/08/17 Status: Discontinued SEROquel 100 mg oral tablet 100 mg=1 tab, PO, Bedtime, (150 mg at bedtime) Start Date: 07/07/17 Status: Ordered SEROquel 50 mg oral tablet 50 mg=1 tab, PO, Bedtime, (150 mg at bedtime) Start Date: 07/07/17 Status: Ordered tramadol 50 mg oral tablet 50 mg, 1 tab, Route: PO, Drug form: TAB, Q12H, Dosing Weight 62, kg, PRN Pain Sc ore 4-6, Start date: 07/07/17 17:34:00 CDT, Duration: 30 day, Stop date: 8 17:33:00 CDT Notes: Not to exceed 400mg/day. (Same As: Ultram) Start Date: 07/07/17 Stop Date: 07/08/17 Status: Discontinued tramadol 50 mg oral tablet 50 mg=1 tab, PO, TID, PRN Pain Score 4-6 Start Date: 07/07/17 Status: Ordered vancomycin + Dextrose 5% in Water IV 250 mL 1,000 mg, Route: IVPB, ONCE, Dosing Weight 62, kg, Priority: STAT, Start date: 0 07/07/17 12:07:00 CDT, Stop date: 07/07/17 12:07:00 CDT, ABX Indication: Pneumoni a Notes: TIME CRITICAL MEDICATION(Same As: Vancocin)Infusion rate< 1000 mg: infuse over 1 [id number] - 1500 mg: infuse over 1.5 [id number] - 2000 mg: infuse over 2 hours> 2001 mg: infuse over 2.5 hoursFor adult patients only: Round to nearest 250 mg per Medical Staff approval MEDICATION WASTE Product Size: 1000 mgProduct Wasted: ___ mg Start Date: 07/07/17 Stop Date: 07/07/17 Status: Completed Zoloft 50 mg, 1 tab, Route: PO, Drug form: TAB, Bedtime, Dosing Weight 62, kg, Start da te: 07/07/17 21:00:00 CDT, Duration: 30 day, Stop date: 08/05/17 21:00:00 CDT Notes: (Same as: Zoloft) Start Date: 07/07/17 Stop Date: 07/08/17 Status: Discontinued Zoloft 50 mg oral tablet 50 mg=1 tab, PO, Bedtime Start Date: 07/07/17 Status: Ordered Results ELECTROLYTES Most recent to 1 2 oldest [Reference Range]: Sodium Lvl [135-145 134 mEq/L 138 mEq/L mEq/L] *LOW* (07/07/17 10:47 AM) (07/08/17 7:47 AM) Potassium Lvl 5.8 mEq/L 4.7 mEq/L [3.5-5.1 mEq/L] *HI* (07/07/17 10:47 AM) (07/08/17 7:47 AM) Chloride Lvl [95-109 104 mEq/L 102 mEq/L mEq/L] (07/08/17 7:47 AM) (07/07/17 10:47 AM) CO2 [24-32 mEq/L] 24 mEq/L 31 mEq/L (07/08/17 7:47 AM) (07/07/17 10:47 AM) AGAP [10.0-20.0 11.8 mEq/L 9.7 mEq/L mEq/L] (07/08/17 7:47 AM) *LOW* (07/07/17 10:47 AM) CHEM PANEL Most recent to 1 2 oldest [Reference Range]: Creatinine Lvl 6.91 mg/dL 5.81 mg/dL [0.50-1.40 mg/dL] *HI* *HI* (07/08/17 7:47 AM) (07/07/17 10:47 AM) eGFR 9 mL/min/1.73m2 1 11 mL/min/1.73m2 2 *NA* *NA* (07/08/17 7:47 AM) (07/07/17 10:47 AM) BUN [7-22 mg/dL] 41 mg/dL 31 mg/dL *HI* *HI* (07/08/17 7:47 AM) (07/07/17 10:47 AM) B/C Ratio [6-25] 5 *LOW* (07/07/17 10:47 AM) Glucose Lvl [70-99 211 mg/dL 164 mg/dL mg/dL] *HI* *HI* (07/08/17 7:47 AM) (07/07/17 10:47 AM) Total Protein 8.7 g/dL [6.4-8.4 g/dL] *HI* (07/07/17 10:47 AM) Albumin Lvl [3.5-5.0 2.6 g/dL 3.2 g/dL g/dL] *LOW* *LOW* (07/08/17 7:47 AM) (07/07/17 10:47 AM) Globulin [2.7-4.2 5.5 g/dL g/dL] *HI* (07/07/17 10:47 AM) A/G Ratio [0.7-1.6] 0.6 *LOW* (07/07/17 10:47 AM) Calcium Lvl 8.0 mg/dL 8.7 mg/dL [8.5-10.5 mg/dL] *LOW* (07/07/17 10:47 AM) (07/08/17 7:47 AM) Phosphorus [2.5-4.5 4.2 mg/dL mg/dL] (07/08/17 7:47 AM) ALT [0-65 unit/L] 18 unit/L (07/07/17 10:47 AM) AST [0-37 unit/L] 21 unit/L (07/07/17 10:47 AM) Alk Phos [39-136 98 unit/L unit/L] (07/07/17 10:47 AM) Bili Total [0.2-1.3 0.7 mg/dL mg/dL] (07/07/17 10:47 AM) Lactic Acid Lvl 0.7 mMol/L [0.5-2.2 mMol/L] (07/07/17 12:46 PM) Procalcitonin Lvl 0.90 ng/mL [0.00-0.10 ng/mL] *HI* (07/07/17 10:47 AM) 1Result Comment: The eGFR is calculated using [...] BMI. CARDIAC ENZYMES Most recent to 1 2 oldest [Reference Range]: Total CK [12-191 127 unit/L unit/L] (07/07/17 10:47 AM) CK MB [0.5-3.6 5.4 ng/mL ng/mL] *HI* (07/07/17 10:47 AM) CK MB Index 4.3 [0.0-2.5] *HI* (07/07/17 10:47 AM) Troponin-I <0.02 ng/mL <0.02 ng/mL [0.00-0.40 ng/mL] (07/07/17 5:46 PM) (07/07/17 10:47 AM) DRUG SCREEN Most recent to 1 2 oldest [Reference Range]: U Amph Scr Negative [Negative] *NA* (07/07/17 10:48 PM) U Dang Scr Negative [Negative] *NA* (07/07/17 10:48 PM) U Benzodia Scr Negative [Negative] *NA* (07/07/17 10:48 PM) U Cocaine Scr Negative [Negative] *NA* (07/07/17 10:48 PM) U Opiate Scr Negative [Negative] *NA* (07/07/17 10:48 PM) U Phencyc Scr Negative [Negative] *NA* (07/07/17 10:48 PM) U Cannab Scr Negative [Negative] *NA* (07/07/17 10:48 PM) UDS Note See Note (07/07/17 10:48 PM) IMMUNOLOGY Most recent to 1 2 oldest [Reference Range]: Hep Bs Ag [Negative] Negative *NA* (07/08/17 1:25 PM) HEMATOLOGY Most recent to 1 2 oldest [Reference Range]: WBC [3.7-10.4 K/CMM] 8.7 K/CMM 12.1 K/CMM (07/08/17 7:47 AM) *HI* (07/07/17 10:47 AM) RBC [4.70-6.10 4.05 M/CMM 4.50 M/CMM M/CMM] *LOW* *LOW* (07/08/17 7:47 AM) (07/07/17 10:47 AM) Hgb [14.0-18.0 g/dL] 11.6 g/dL 12.8 g/dL *LOW* *LOW* (07/08/17 7:47 AM) (07/07/17 10:47 AM) Hct [42.0-54.0 %] 35.2 % 39.3 % *LOW* *LOW* (07/08/17 7:47 AM) (07/07/17 10:47 AM) MCV [80.0-94.0 fL] 87.0 fL 87.3 fL (07/08/17 7:47 AM) (07/07/17 10:47 AM) MCH [27.0-31.0 pg] 28.5 pg 28.5 pg (07/08/17 7:47 AM) (07/07/17 10:47 AM) MCHC [32.0-36.0 32.8 g/dL 32.7 g/dL g/dL] (07/08/17 7:47 AM) (07/07/17 10:47 AM) RDW [11.5-14.5 %] 14.9 % 15.3 % *HI* *HI* (07/08/17 7:47 AM) (07/07/17 10:47 AM) MPV [7.4-10.4 fL] 8.3 fL 7.9 fL (07/08/17 7:47 AM) (07/07/17 10:47 AM) Platelet [133-450 220 K/CMM 233 K/CMM K/CMM] (07/08/17 7:47 AM) (07/07/17 10:47 AM) Segs [45.0-75.0 %] 52.6 % 67.9 % (07/08/17 7:47 AM) (07/07/17 10:47 AM) Lymphocytes 31.2 % 21.7 % [20.0-40.0 %] (07/08/17 7:47 AM) (07/07/17 10:47 AM) Monocytes [2.0-12.0 7.8 % 5.4 % %] (07/08/17 7:47 AM) (07/07/17 10:47 AM) Eosinophils [0.0-4.0 7.6 % 4.3 % %] *HI* *HI* (07/08/17 7:47 AM) (07/07/17 10:47 AM) Basophils [0.0-1.0 0.8 % 0.7 % %] (07/08/17 7:47 AM) (07/07/17 10:47 AM) Segs-Bands # 4.6 K/CMM 8.2 K/CMM [1.5-8.1 K/CMM] (07/08/17 7:47 AM) *HI* (07/07/17 10:47 AM) Lymphocytes # 2.7 K/CMM 2.6 K/CMM [1.0-5.5 K/CMM] (07/08/17 7:47 AM) (07/07/17 10:47 AM) Monocytes # [0.0-0.8 0.7 K/CMM 0.7 K/CMM K/CMM] (07/08/17 7:47 AM) (07/07/17 10:47 AM) Eosinophils # 0.7 K/CMM 0.5 K/CMM [0.0-0.5 K/CMM] *HI* (07/07/17 10:47 AM) (07/08/17 7:47 AM) Basophils # [0.0-0.2 0.1 K/CMM 0.1 K/CMM K/CMM] (07/08/17 7:47 AM) (07/07/17 10:47 AM) PT [12.0-14.7 13.8 seconds seconds] (07/07/17 10:47 AM) INR [0.85-1.17] 1.06 (07/07/17 10:47 AM) PTT [22.9-35.8 36.5 seconds seconds] *HI* (07/07/17 10:47 AM) Immunizations Given and Recorded Vaccine Date Status Refusal Reason influenza virus vaccine, inactivated 05/15/15 Given influenza virus vaccine, inactivated 05/21/13 Given influenza virus vaccine, inactivated 04/12/12 Given pneumococcal 23-valent vaccine 05/15/15 Given pneumococcal 23-valent vaccine 04/12/12 Given Procedures Procedure Date Related Diagnosis Body Site Status Hemodialysis Completed Social History Social History Type Response Substance Abuse Use: Past. Type: Amphetamines. Amount: marijuana. Frequency: 1-2 times per week. Previous Treatment: None. IV drug use: No.1 Sexual Sexually active: No. Sexual orientation: Something else, please describe (by selecting Other). Exercise Exercise frequency: 5-6 times/week. Self assessment: Poor condition. Exercise type: Walking.2 Employment/School Status: Unemployed. 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 Operates hazardous equipment: No. Alcohol Past, Type Beer. Frequency: 1-2 times per month. Last use: 2015. Alcohol use interferes with work or home: No. Drinks more than intended: No. Others hurt by drinking: No. Ready to change: No. Household alcohol concerns: No. Smoking Status Former smoker; Type: Cigarettes; Exposure to Tobacco Smoke None; Cigarette Smoking Last 365 Days No; Reg Smoking Cessation Counseling Yes; Tobacco use per day: 1; Number of years: 0.5; Other Tobacco Frequency 30 years ago; entered on: 07/07/17 1Pt. states he uses cocaine approx 1 month ago 213 hours Assessment and Plan Extracted from: Title: General Admission H&P * Author: Marilee Dalal DO Date: 07/07/17 Impression and Plan 1. GERD -sounds like patient had attack of reflux like symptoms that resolved and improved dramatically with GI cocktail -cont PPI, GI cocktail prn 2. Possible pneumonia -doubt he has infection. He had no SOB, has dry minimal cough for few weeks, no fever. His CXR is vague with atelectasis vs infiltrates so will get a CT of chest to further evaluate. -received dose of vancomycin in ER. Will continue cefepime for now. -procal is borderline elevated but he is dialysis patient so difficult to interpret. 3. ESRD on HD -consult renal. No signs or sxs of needing urgent dialysis. Had session cut short slightly today. 4. HTN uncontrolled -cont home meds -cont prn clonidine 5. DM type II -SSI and Lantus 6. Hx of stroke -baseline does not seem like he is very mobile and functional. He is assisted patient. -reported allergy to aspirin. Heparin for DVT px Dispo: f/u on CT chest, reeval in AM 7.
--- OUTSIDE RECORDS SUMMARY | 2018-05-16 23:40 | XMS REPORT | Summary of Care ---
Author Author [facility] Organization [facility] Address Unknown Phone Unavailable Encounter URIEL Ruiz(WILDER) [id number] Date(s): 07/07/17 - 07/08/17 [facility] [address] [place] [address]- [phone] Encounter Diagnosis Other chest pain (Final) - 07/15/17 Heartburn (Final) - Hyperkalemia (Final) - Type 2 diabetes mellitus with diabetic chronic kidney disease (Final) - Hypertensive heart and chronic kidney disease with heart failure and with stage 5 chronic kidney disease, or end stage renal disease (Final) - Heart failure, unspecified (Final) - End stage renal disease (Final) - Gastro-esophageal reflux disease without esophagitis (Final) - Elevated white blood cell count, unspecified (Final) - Dependence on renal dialysis (Final) - Chronic obstructive pulmonary disease, unspecified (Final) - Schizophrenia, unspecified (Final) - Personal history of transient ischemic attack (TIA), and cerebral infarction wit hout residual deficits (Final) - 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 (Final) - Discharge Disposition: Home or Self Care Attending Physician: Marilee Dalal DO Admitting Physician: [...] IV 100 mL 1 gm, Route: IVPB, [id number], Dosing Weight 62, kg, (CrCl <10 ml/min or IHD), Start date: 07/08/17 13:00:00 CDT, Duration: 10 day, Stop date: 07/17/17 13:00:00 CDT, ABX Indication: Pneumonia Notes: (Same As: Maryam) MEDICATION WASTE Product Size: 1000 mgProduc t Wasted: ___ mg Start Date: 07/08/17 Stop Date: 07/08/17 Status: Canceled cloNIDine 0.1 mg oral tablet 0.1 mg, 1 tab, Route: PO, Drug form: TAB, Q6H, Dosing Weight 62, kg, PRN Elevate d BP, Start date: 07/07/17 17:34:00 CDT, Duration: 30 day, Stop date: 08/06/17 1 7:33:00 CDT Notes: (Same As: Diego) Start Date: 07/07/17 Stop Date: 07/08/17 Status: [...] date: 08/06/17 17:00:00 CDT Notes: (Same as Senokot-S) Equiv. to Gita-Colace. Start Date: 07/08/17 Stop [...] date: 08/06/17 9:00:00 CDT Notes: (Same as: Lanchristopherus)Do not hold insulin without contacting prescriberWASTE: F/P [...] date: 08/06/17 9:00:00 CDT Notes: (Same as: Prinivil, Zestril) Start Date: 07/08/17 Stop Date: 07/08/17 Status: [...] TAB, Q5Min, Dosing Weight 62, kg, PRN Rubyn omega, Start date: 07/07/17 17:35:00 CDT, Duration: 30 [...] Vancocin)Infusion rate< 1000 mg: infuse over 1 [id number] - 1500 mg: infuse over 1.5 [id number] - 2000 mg: infuse over 2 hours> [...] is very mobile and functional. He is group home patient. -reported allergy to aspirin. Heparin for DVT px Dispo: f/u on CT chest, reeval in AM 7.
--- OUTSIDE RECORDS SUMMARY | 2018-05-16 23:40 | XMS REPORT ---
Author Author [facility] Address Unknown Phone Unavailable Care Team Providers Care Labor Conciliator Name Role Phone UNKNOWN, REFFERING PP Unavailable Cristina FENTON Unavailable Unavailable Payers Payer Name Policy Type Policy Number Effective Date Expiration Date Problems This patient has no known problems. Allergies, Adverse Reactions, Alerts Allergy Name Allergy Type Status Severity Reaction(s) Onset Date Inactive Date Treating Clinician Comments Penicillins DA Active U 2018-04-02 00:00:00 aspirin DA Active U 2018-04-02 00:00:00 acetaminophen DA Active U 2018-04-02 00:00:00 Penicillins DA Active U 2017-12-01 00:00:00 aspirin DA Active U 2017-12-01 00:00:00 acetaminophen DA Active U 2017-12-01 00:00:00 Medications This patient has no known medications. Encounters Start Date/Time End Date/Time Encounter Type Admission Type Attending Clinicians Care Facility Care Department Encounter ID 2017-07-06 09:49:00 2017-07-06 09:49:00 Outpatient MICHAEL STRONG [facility] [id number] Results Test Description Test Time Test Comments Text Results Atomic Results Result Comments POC Glucose, Blood 2017-07-06 11:37:00 POC Glucose (test code=POCGLUC) 151 mg/dL 70-115
[2018-05-17] MEDS ORDERED: CLONIDINE HCL 0.1 MG TAB PO ONE (00:15)
[2018-05-17] MEDS ORDERED: CLONIDINE HCL 0.1 MG TAB ONE (00:20)
[2018-05-17 00:28] LABS: BASOPHILS % 0.4 % (0.0-1.0); EOSINOPHILS # (AUTO) 0.3 (0.0-0.4); EOSINOPHILS % 4.8 % (0.0-6.0); HEMATOCRIT 27.1 % (38.2-49.6); HEMOGLOBIN 8.9 g/dL (14.0-18.0); LYMPHOCYTES # (AUTO) 1.2 (1.0-3.2); LYMPHOCYTES % 17.4 % (18.0-39.1); MEAN CORPUSCULAR HEMOGLOBIN 27.8 pg (28-32); MEAN CORPUSCULAR HGB CONC 32.8 g/dL (31-35); MEAN CORPUSCULAR VOLUME 84.7 fL (81-99); MONOCYTES # (AUTO) 0.7 (0.2-0.8); MONOCYTES % 9.9 % (4.4-11.3); NEUTROPHILS # (AUTO) 4.6 (2.1-6.9); NEUTROPHILS % 67.2 % (38.7-80.0); PLATELET COUNT 194 x10e3/uL (140-360); RED CELL DISTRIBUTION WIDTH 16.6 % (11.7-14.4)
--- NOTE | 2018-05-17 00:37 | Diagnostic Imaging Report ---
EXAMINATION: CHEST SINGLE (PORTABLE) INDICATION: ^SOB ^[id number] ^[id number] ^Y COMPARISON: None FINDINGS: AP view TUBES and LINES: None. LUNGS: Limited by low lung volumes and body habitus. Bilateral airspace opacities. PLEURA: No visible pneumothorax. Suspected small bilateral pleural effusions. HEART AND MEDIASTINUM: The cardiomediastinal silhouette is enlarged. BONES AND SOFT TISSUES: No acute osseous lesion. Soft tissues are unremarkable. UPPER ABDOMEN: No free air under the diaphragm. IMPRESSION: Enlarged cardiomediastinal silhouette with bilateral airspace opacities, likely moderate pulmonary edema. Underlying infiltrate cannot be excluded. Suspected small bilateral pleural effusions. Signed by: Dr. Nish Hurst MD on 05/17/2018 12:33 AM
[2018-05-17 00:52] LABS: ALBUMIN/GLOBULIN RATIO 0.7 (0.8-2.0); CALCIUM 8.7 mg/dL (8.4-10.2); CREATININE, SERUM 4.56 mg/dL (0.72-1.25)
[2018-05-17 00:59] LABS: CREATINE KINASE MB 4.9 ng/mL (0-5.0)
[2018-05-17 01:07] LABS: ANION GAP 14.8 mmol/L (8-16); POTASSIUM 3.8 mmol/L (3.5-5.1)
[2018-05-17] MEDS ORDERED: AMLODIPINE BESY10 MG PO (01:15)
[2018-05-17] MEDS ORDERED: HYDRALAZINE HCL25 MG PO (01:15)
[2018-05-17] MEDS ORDERED: COREG3.125 MG PO (01:16)
[2018-05-17] MEDS ORDERED: ISOSORBIDE MON120 MG PO (01:16)
[2018-05-17] MEDS ORDERED: LEVEMIR100 UNIT/1 SC (01:17)
[2018-05-17] MEDS ORDERED: LISINOPRIL10 MG PO (01:17)
[2018-05-17] MEDS ORDERED: LYRICA25 MG PO (01:18)
[2018-05-17] MEDS ORDERED: CYTOTEC100 MCG PO (01:18)
[2018-05-17] MEDS ORDERED: PANTOPRAZOLE SO40 MG PO (01:19)
[2018-05-17] MEDS ORDERED: RENVELA0.8 GM PO (01:19)
[2018-05-17] MEDS ORDERED: ZOLOFT100 MG PO (01:20)
[2018-05-17] MEDS ORDERED: LACTULOSE20 GM/30 M PO (01:20)
[2018-05-17] MEDS ORDERED: trazadone (01:24)
[2018-05-17] MEDS ORDERED: TRAZODONE HCL100 MG PO (01:24)
[2018-05-17] MEDS ORDERED: ACETAMINOPHEN325 M1 PO (01:24)
[2018-05-17] MEDS ORDERED: MOTRIN200 MG PO (01:25)
[2018-05-17] MEDS ORDERED: PEPCID20 MG PO (01:25)
[2018-05-17] MEDS ORDERED: IMODIUM2 MG PO (01:26)
[2018-05-17] MEDS ORDERED: SEROQUEL25 MG PO (01:26)
[2018-05-17] MEDS ORDERED: QUETIAPINE FUMARATE 25 MG TAB PO PRN (01:45)
[2018-05-17] MEDS ORDERED: ONDANSETRON HCL INJ 2MG/ML 2ML 2 MG/ML VIAL IV PRN (01:45)
[2018-05-17] MEDS ORDERED: LOPERAMIDE HCL 2 MG CAP PO PRN (01:45)
[2018-05-17] MEDS ORDERED: IBUPROFEN 200 MG TAB PO PRN (01:45)
[2018-05-17] MEDS ORDERED: DEXTROSE 50% SYRINGE 50 ML IV PRN (01:45)
[2018-05-17] MEDS ORDERED: HYDRALAZINE HCL 20 MG/ML VIAL IV STA (02:04)
[2018-05-17] MEDS ORDERED: HYDRALAZINE HCL 20 MG/ML VIAL ONE (02:13)
[2018-05-17] MEDS ORDERED: HYDRALAZINE HCL 20 MG/ML VIAL IV PRN (02:15)
--- NOTE | 2018-05-17 02:37 | NUR ---
PT YELLING LOUDLY, STATING HE WANTS A URINAL, URINAL GIVEN, PT STOOD AT END OF BED AND USED URINAL THEN STATES HE FEELS SOB. HE REMOVED O2 NC, REMOVED [employer], PULSE OX AND NIBP, PULLED ALL EKG ELECTRODES OFF, TOOK HOSPITAL GOWN OFF AND THREW ON FLOOR IN NURSE PRESENCE THEN CHANGED INTO HIS SHIRT. STATES HE IS NOT GOING TO WEAR GOWN OR MONITORS AND IS GOING TO SIT IN CHAIR. PLACED O2 BACK ON PATIENT HE AGREES TO USE O2. AWAKE ALERT SKIN W/D RESP NONLAB, NAD NOTED. CALL CONROY IN REACH, SIDE RAIL DOWN ON BED AND ADVISED PATIENT HE SHOULD LAY ON BED, AGAIN REFUSES BED AND IS SITTING IN CHAIR. DR FRANCOIS AWARE
--- NOTE | 2018-05-17 06:55 | NUR ---
RECEIVED REPORT FROM OFF GOING NURSE. PATIENT SITTING UP IN CHAIR AT BEDSIDE. PATIENT REFUSING TO TRANSFER INTO STRETCHER. RECLINER RETRIEVED AND PLACED INTO ROOM AND PATIENT TRANSFERED INTO RECLINER. NO S/S OF ACUTE DISTRESS. RESP EVEN AND NONLABORED. NOT CONNECTED TO BEDSIDE MONITOR BECAUSE PT REFUSES TO BE CONNECTED. PENDING ROOM ASSIGNMENT. CALL LIGHT IN REACH, WILL CONTINUE TO MONITOR.
[2018-05-17] MEDS: INSULIN REGULAR, HUMAN 100 UNIT/1 ML 3ML VIAL SQ SCH ×4 (07:50→21:00)
[2018-05-17] MEDS: SEVELAMER CARBONATE 800 MG TAB PO SCH ×3 (08:40→17:49)
[2018-05-17] MEDS: ISOSORBIDE MONONITRATE 30 MG TAB CR PO SCH (08:40)
[2018-05-17] MEDS: PANTOPRAZOLE SOD 40 MG TABEC PO SCH (08:40)
[2018-05-17] MEDS: AMLODIPINE BESYLATE 10 MG TAB PO SCH (08:40)
[2018-05-17] MEDS: HYDRALAZINE HCL 25 MG TAB PO SCH ×2 (08:40→17:00)
[2018-05-17] MEDS: LISINOPRIL 10 MG TAB PO SCH (08:40)
[2018-05-17] MEDS: SERTRALINE HCL 100 MG TAB PO SCH (08:40)
[2018-05-17] MEDS: FAMOTIDINE 20 MG TAB PO SCH ×2 (08:40→17:49)
[2018-05-17] MEDS: MISOPROSTOL 100 MCG TAB PO SCH ×2 (08:44→17:49)
[2018-05-17] MEDS ORDERED: PREGABALIN 25 MG CAP PO SCH (09:00)
[2018-05-17 15:45] VITALS: BP 167/77
--- NOTE | 2018-05-17 15:45 | NUR ---
PATIENT RECEIVED FROM ER PER WHEEL CHAIR. ALERT AND VERBALLY RESPONSIVE, ASSISTED TO RECLINING CHAIR PER PATIENT REQUEST. DENIED PAIN AT THIS TIME. SKIN WARM AND DRY TO TOUCH, RESPIRATION EVEN AND UNLABORED, O2 IN PLACE AT 2L VIA N/C, ABDOMEN SOFT AND NON DISTENDED. C/O COLD, WARM BLANKET PROVIDED. PATIENT REFUSED HIS PERINEAL AREA TO BE ASSESSED. YELLOW SOCKS APPLIED. ORIENTED TO SURROUNDING, RECLINING CHAIR LOW AND LOCKED. CALL LIGHT AT REACH, URINAL PROVIDED. INSTRUCTED TO CALL FOR ASSISTANCE NEEDED
[2018-05-17] MEDS ORDERED: AZITHROMYCIN 500MG/NS 250 ML 250 ML IV SCH (16:00)
--- NOTE | 2018-05-17 16:18 | NUR ---
PATIENT OFF UNIT TO RADIOLOGY.
[2018-05-17 16:19] VITALS: BP 167/77
--- NOTE | 2018-05-17 16:50 | NUR ---
PATIENT BACK TO UNIT FROM RADIOLOGY.
[2018-05-17] MEDS ORDERED: SODIUM CHLORIDE 0.9% 250ML 250 ML ONE (17:20)
--- NOTE | 2018-05-17 17:45 | NUR ---
PATIENT NOTED WITH BLOOD SUGAR OF 55, NO S/S OF HYPOGLYCEMIA NOTED. A CUP OF JUICE GIVEN AND PATIENT TOLERATED WELL. BLOOD SUGAR RECHECKED WITH THE READING OF 68. PATIENT ATE ALL HIS DINNER. WILL CLOSELY MONITOR.
[2018-05-17] MEDS: CEFTRIAXONE SOD 1 GM/NS 50 ML 50 ML IV SCH (17:49)
[2018-05-17 19:00] VITALS: BP 167/77
--- NOTE | 2018-05-17 19:00 | NUR ---
Received patient from day nurse, patient is alert and oriented, introduced myself to patient and patient made aware of the importance of calling for help, patient verbalized understanding. safety and fall precaution maintained as per hospital protocol:bed in lowest position and locked, needed items beside bed and call renee placed close to patient, yellow socks on patient, bed alarm set, and room made free of clutter. patient is currently stable will continue to monitor.
[2018-05-17] MEDS ORDERED: SODIUM CHLORIDE 0.9% 1000ML 2,000 ML ONE (19:48)
[2018-05-17 20:00] VITALS: BP 163/76
--- NOTE | 2018-05-17 20:00 | NUR ---
antibiotics not administered, dialysis is in progress.
--- NOTE | 2018-05-17 21:23 | Diagnostic Imaging Report ---
EXAM: CT Chest WITHOUT contrast INDICATION: ^SOB ^[id number] ^[id number] COMPARISON: Chest x-ray dated 05/17/2018 TECHNIQUE: Chest was scanned utilizing a multidetector helical scanner from the lung apex through the level of the adrenal glands without administration of IV contrast. Absence of intravenous contrast decreases sensitivity for detection of lymphadenopathy and vascular pathology. Coronal and sagittal reformations were obtained. Routine protocol was performed. IV CONTRAST: None COMPLICATIONS: None RADIATION DOSE: Total DLP: 434.22 mGy*cm Estimated effective dose: (DLP x 0.014 x size factor) mSv CTDIvol has been reviewed. It is below the limits set by the Radiation Protocol Committee (RPC). FINDINGS: LINES/ TUBES: None. LUNGS AND AIRWAYS: Interlobular septal thickening and bibasilar consolidations. Pulmonary vascular congestion. Airways are normal. PLEURA: There is bilateral hyperdense effusions, left greater than right, with adjacent consolidations. HEART AND MEDIASTINUM: The thyroid gland is normal. Mediastinal lymphadenopathy. For example 1.2 cm prevascular lymph node (series 2, image 33) or 1.2 cm right paratracheal lymph node (series 2, image 30). Limited for evaluation of hilar regions without intravenous contrast. No axillary lymphadenopathy. Cardiomegaly. Trace pericardial effusion. Dilated main pulmonary artery measuring 3.5 cm, suggestive of pulmonary hypertension. Mild atherosclerotic calcification of coronary arteries. UPPER ABDOMEN: Unremarkable. BONES: The visualized bony thorax is within normal limits. SOFT TISSUES: Mild anasarca. IMPRESSION: Pulmonary vascular congestion and mild interstitial edema. Trace bilateral hyperdense effusions, left greater than right, suspicious for hemothorax. There are adjacent consolidations, especially in the left lung base, probably atelectasis. Underlying pneumonia or nodule cannot be excluded. Cardiomegaly and trace pericardial effusion. Mediastinal lymphadenopathy. Signed by: Dr. Nish Hurst MD on 05/17/2018 9:20 PM
[2018-05-18] VITALS: BP 160/88
--- NOTE | 2018-05-18 00:32 | History and Physical ---
CHIEF COMPLAINT: Fluid overload, end-stage renal disease, required dialysis. SUMMARY: This is a 57-year-old male who came from [facility]. Apparently, the patient was on dialysis for the past 4 years. He presented to the hospital the day after his dialysis, where he complained of increasing shortness of breath. Chest x-ray showed fluid retention, pulmonary edema. The patient is admitted for further evaluation with possible repeated dialysis due to fluid overload. The patient is otherwise stable at this time. He does have difficulty giving all the history his condition. The patient is otherwise stable. He is also having breakfast. PAST MEDICAL HISTORY: 1. End-stage renal disease, on dialysis. 2. Hypertension. 3. Diabetes type 2, on insulin therapy. 4. Major depression. 5. Insomnia. PAST SURGICAL HISTORY: Not available. Left arm fistula. SOCIAL HISTORY: The patient is a resident of [facility]. He does not smoke or use alcohol or recreational drugs. ALLERGIES: TO ASPIRIN. HOME MEDICATIONS: 1. Tylenol. 2. Norvasc. 3. Coreg. 4. Pepcid. 5. Hydralazine. 6. Motrin. 7. Levemir. 8. Imdur. 9. Lactulose. 10. Lisinopril. 11. Imodium as needed. 12. . 13. Protonix. 14. Lyrica. 15. Seroquel. 16. Zoloft. 17. Renvela. 18. Trazodone. REVIEW OF SYSTEMS: Increasing shortness of breath and cough. PHYSICAL EXAMINATION: VITAL SIGNS: Temperature is 98, blood pressure 172/79, pulse rate is 80, respirations 18. GENERAL: The patient seems comfortable on oxygen. He is not in any distress. HEENT: Normocephalic, atraumatic. Anicteric. NECK: Supple grossly. PULMONARY: Diminished breath sounds bilaterally at the bases with rales. CARDIOVASCULAR: S1 and S2. Regular rate and rhythm. ABDOMEN: Soft, nontender, nondistended. EXTREMITIES: Left arm fistula. There is edema of the lower extremities bilaterally, 1+. NEUROLOGIC: No focal deficits. LABORATORY DATA: Sodium was 137, potassium 3.8, chloride 99, bicarb 27, BUN 14, creatinine 4.6, glucose 179. WBC 6.8, hemoglobin 8.9, hematocrit 27.1, platelets are 197. IMPRESSION: 1. Fluid overload with pulmonary edema. 2. End-stage renal disease, on dialysis volume management. 3. Multiple chronic baseline problems. PLAN: Obtain a CT of the chest without contrast. Place the patient on antibiotics for possible pneumonia. Continue with his home medication. Dialysis. Check the patient's lab work. MD FELICITY Celis/TERRAL /[id number]
--- NOTE | 2018-05-18 00:53 | NUR ---
dialysis completed, 3.8 removed as per dialysis nurse. Received patient from day nurse, patient is alert and oriented, introduced myself to patient and patient made aware of the importance of calling for help, patient verbalized understanding. safety and fall precaution maintained as per hospital protocol:bed in lowest position and locked, needed items beside bed and call renee placed close to patient, yellow socks on patient, bed alarm set, and room made free of clutter. patient is currently stable will continue to monitor. 2000: patient rounded : bed in lowest position and locked, needed items beside bed and call renee placed close to patient, yellow socks on patient, bed alarm is on, room is free of clutter. patient is currently stable will continue to monitor. 2200: patient rounded : bed in lowest position and locked, needed items beside bed and call renee placed close to patient, yellow socks on patient, bed alarm is on, room is free of clutter. patient is currently stable will continue to monitor
[2018-05-18] MEDS: HYDRALAZINE HCL 25 MG TAB PO SCH ×4 (01:06→22:19)
[2018-05-18] MEDS: TRAZODONE HCL 50 MG TAB PO SCH ×2 (01:06→22:19)
[2018-05-18] MEDS: AZITHROMYCIN 500MG/NS 250 ML 250 ML IV SCH ×2 (01:06→22:09)
--- NOTE | 2018-05-18 01:12 | Consultation ---
DATE OF CONSULTATION: 05/17/2018 HISTORY OF PRESENT ILLNESS: This is a 57-year-old gentleman who looks much older than stated age. Presented to the hospital with shortness of breath. He is apparently a noncompliant patient, has a history of bipolar disorder, has an AV fistula, has been on dialysis for years. He is currently sitting up in a chair, no apparent dyspnea, but mildly short of breath. LABORATORY DATA: Labs show white count 6.8, hemoglobin 8.9, potassium level is 3.8 with a calcium 8.7, bicarb 27 and creatinine 4.56. ALLERGIES: HE IS ALLERGIC TO TYLENOL AND ASPIRIN. REVIEW OF SYSTEMS: He denies any history of any malignancy. PAST MEDICAL HISTORY: He has a history of diabetes and hypertension. MEDICATIONS: Currently on Renvela 800 mg p.o. 3 times a day with meals, trazodone 100 mg at bedtime, Seroquel 25 mg p.o. b.i.d. p.r.n. agitation, sertraline, Zoloft 100 mg daily. He is on Lyrica 25 mg p.o. daily which I am going to stop right now. He is also on lisinopril 20 mg daily, isosorbide 120 mg p.o. daily. He is on famotidine 25 mg b.i.d., hydralazine 25 mg p.o. t.i.d. He is on empiric antibiotics. IMAGING: Chest x-ray shows evidence of fluid overload. FAMILY HISTORY: Significant for hypertension. PHYSICAL EXAMINATION: GENERAL: Awake, alert, sitting up. VITAL SIGNS: with the blood pressure 167/77, pulse rate 77, afebrile. His oxygen saturation is 97% on 3 L nasal cannula. HEAD AND NECK: Arcus senilis noted. Neck is slightly distended. No JVD. LUNGS: Bibasilar rales. HEART: A 2-3/6 ejection systolic murmur in the left sternal border. ABDOMEN: Otherwise, soft and nontender. EXTREMITIES: Lower extremity, no edema. IMPRESSION AND PLAN: 1. Fluid overload. 2. End-stage renal disease. 3. Noncompliance. 4. Underlying bipolar disorder. 5. Hypertension. 6. The patient claims he is diabetic. 7. Hypertensive with anemia of chronic kidney disease. 8. Secondary hyperparathyroidism. I will place on renal diet, fluid restriction, salt restriction, stat dialysis. Dialysis nurse was made aware this morning. He will be dialyzed today. MD JUAN FRANCISCO San/MODL /[id number]
[2018-05-18 06:11] LABS: BASOPHILS % 0.4 % (0.0-1.0); EOSINOPHILS # (AUTO) 0.2 (0.0-0.4); EOSINOPHILS % 2.9 % (0.0-6.0); LYMPHOCYTES # (AUTO) 1.7 (1.0-3.2); LYMPHOCYTES % 23.3 % (18.0-39.1); MEAN CORPUSCULAR HEMOGLOBIN 27.3 pg (28-32); MEAN CORPUSCULAR HGB CONC 30.8 g/dL (31-35); MEAN CORPUSCULAR VOLUME 88.7 fL (81-99); MONOCYTES # (AUTO) 0.7 (0.2-0.8); MONOCYTES % 9.8 % (4.4-11.3); NEUTROPHILS # (AUTO) 4.5 (2.1-6.9); NEUTROPHILS % 63.2 % (38.7-80.0); PLATELET COUNT 153 x10e3/uL (140-360); RED BLOOD COUNT 2.93 x10e6/uL (4.3-5.7); RED CELL DISTRIBUTION WIDTH 16.7 % (11.7-14.4)
--- NOTE | 2018-05-18 06:14 | Diagnostic Imaging Report ---
EXAMINATION: CHEST SINGLE (PORTABLE) INDICATION: ^POSSIBLE PLEURAL EFFUSION ^[id number] ^[id number] ^Y COMPARISON: CT and x-ray on 05/17/2018 FINDINGS: AP view TUBES and LINES: None. LUNGS: Limited by low lung volumes. Pulmonary vascular congestion and mild interstitial edema. PLEURA: No visible pneumothorax. Trace bilateral pleural effusions. HEART AND MEDIASTINUM: The cardiomediastinal silhouette is enlarged. BONES AND SOFT TISSUES: No acute osseous lesion. Soft tissues are unremarkable. UPPER ABDOMEN: No free air under the diaphragm. IMPRESSION: Pulmonary vascular congestion and mild interstitial edema. Trace bilateral pleural effusions. Underlying pneumonia, especially in the right lower lung field cannot be excluded. Signed by: Dr. Nish Hurst MD on 05/18/2018 6:11 AM
--- NOTE | 2018-05-18 06:22 | NUR ---
0200: patient rounded : bed in lowest position and locked, needed items beside bed and call renee placed close to patient, yellow socks on patient, bed alarm is on, room is free of clutter. patient is currently stable will continue to monitor. 0600: patient rounded : bed in lowest position and locked, needed items beside bed and call renee placed close to patient, yellow socks on patient, bed alarm is on, room is free of clutter. patient is currently stable will continue to monitor.
[2018-05-18 06:41] LABS: ALBUMIN 2.9 g/dL (3.5-5.0); ALBUMIN/GLOBULIN RATIO 0.6 (0.8-2.0); CALCIUM 8.7 mg/dL (8.4-10.2); CREATININE, SERUM 3.44 mg/dL (0.72-1.25)
--- NOTE | 2018-05-18 06:47 | NUR ---
Patient condition throughout the night was stable, report given to Nurse Fowler for continuity of care.
[2018-05-18] MEDS: INSULIN REGULAR, HUMAN 100 UNIT/1 ML 3ML VIAL SQ SCH ×4 (07:30→22:21)
[2018-05-18 08:00] VITALS: BP 152/72
[2018-05-18 08:41] VITALS: BP 152/72
[2018-05-18] MEDS: SERTRALINE HCL 100 MG TAB PO SCH (08:41)
[2018-05-18] MEDS: MISOPROSTOL 100 MCG TAB PO SCH ×2 (08:41→17:16)
[2018-05-18] MEDS: PANTOPRAZOLE SOD 40 MG TABEC PO SCH (08:41)
[2018-05-18] MEDS: FAMOTIDINE 20 MG TAB PO SCH ×2 (08:41→17:16)
[2018-05-18] MEDS: SEVELAMER CARBONATE 800 MG TAB PO SCH ×3 (08:41→17:16)
[2018-05-18] MEDS: ISOSORBIDE MONONITRATE 30 MG TAB CR PO SCH (08:41)
[2018-05-18] MEDS: AMLODIPINE BESYLATE 10 MG TAB PO SCH (08:41)
[2018-05-18] MEDS: LISINOPRIL 10 MG TAB PO SCH (08:41)
[2018-05-18 12:00] VITALS: BP 121/62
[2018-05-18] MEDS: CEFTRIAXONE SOD 1 GM/NS 50 ML 50 ML IV SCH (15:39)
--- NOTE | 2018-05-18 18:30 | NUR ---
Referral by RN who stated pt requested visit. Visit made by the Spiritual Care Department Pastoral Visitor, Marquise Arteaga. Pt sleeping soundly and no family present. Pastoral Visitor left a card describing availability of squash centre manager and instructions on how to contact a squash centre manager. TRENTON MENDOZA Professor Of Psychiatry Spiritual Care Department O: [phone] Pager: [phone] ([phone] number calling from)
--- NOTE | 2018-05-18 19:00 | NUR ---
Received patient from day nurse, patient is alert and oriented, introduced myself to patient and patient made aware of the importance of calling for help, patient verbalized understanding. safety and fall precaution maintained as per hospital protocol:bed in lowest position and locked, needed items beside bed and call renee placed close to patient, yellow socks on patient, bed alarm set, and room made free of clutter.patient is currently stable will continue to monitor.
--- NOTE | 2018-05-18 19:29 | Consultation ---
DATE OF CONSULTATION: Pulmonary Consultation REASON FOR CONSULTATION: Pleural effusion. HISTORY OF PRESENT ILLNESS: Mr. Jennings is a 57-year-old male with multiple problems including end-stage renal disease for which he states he gets dialyzed Wednesday and Wednesday. He came to the hospital, apparently after dialysis, he says he has had shortness of breath for a few days. He has some cough, but he denies sputum, chest pain, fevers, or chills. He states he was told he had pneumonia. Also states he has not missed any dialysis. He denies chest pain or palpitations. He denies night sweats. PAST MEDICAL HISTORY: Include diabetes type 2, hypertension, major depression, schizophrenia, bipolar, insomnia, and end-stage renal disease. PAST SURGICAL HISTORY: Includes dialysis access. SOCIAL HISTORY: He lives at [facility]. He will smoke occasionally, he states a pack of cigarettes over the last 1-3 months. He does not smoke cigarettes every day. In the past, he has done cocaine and marijuana. He denies IV drug use. He does not drink. ALLERGIES: INCLUDE ASPIRIN. MEDICATIONS: His medications are reviewed. REVIEW OF SYSTEMS: Included as above. PHYSICAL EXAMINATION: VITAL SIGNS: He is afebrile. His maximum blood pressure was 160/88. His maximum temperature was 97.4 orally. Heart rates in the 70s, although there was one documented at 152, which happens to be same as all of his blood pressures today. Saturation is 96%. He is currently on room air. GENERAL APPEARANCE: This is an male, sitting in the chair, getting ready to eat breakfast. He is a little bit irritable and states he does not want to be here and he is ready to go home, but he is not in any distress. HEENT: Head is normocephalic. His mucous membranes are moist. He is edentulous. NECK: Supple. CHEST: Has few crackles at the bases. HEART: Has regular rhythm. No murmurs. ABDOMEN: Nontender. EXTREMITIES: Not edematous. SKIN: Has no acute rash. DIAGNOSTIC DATA: I have reviewed his chest x-ray, it shows blunting of the costophrenic angles. There are some hazy opacities sort of rounded just above the right hemidiaphragm. I have reviewed the CT of the chest, it shows very small pleural effusions, there is intralobar fluid, which would be effusions. I do not see any consolidations or pneumonias minimal atelectasis. LABORATORY DATA: White count was 6 on arrival, it is currently 7; hemoglobin and hematocrit are 8 and 26 with 153,000 platelets with no left shift. His creatinine at arrival was 3.44. ASSESSMENT: 1. Pleural effusions including pleural effusion in the intralobar fissure also know as pseudotumor phenomenon. 2. Volume overload. 3. End-stage renal disease. 4. Hypertension. RECOMMENDATIONS AND PLAN: Continue with dialysis. If he is afebrile in 24-48 hours, can stop the antibiotics. Recommend echocardiogram since he has cardiomegaly. Further recommendations pending findings. MD FRIDA Roman/MODL /[id number]
[2018-05-18 20:00] VITALS: BP 126/62
--- NOTE | 2018-05-18 22:00 | NUR ---
patient was rounded at 10pm, 2 and 6am, patient stable, Dr. Shaikh was made aware of the low sugar and ordered to hold insulins,Report given to day nurse at 0645.
[2018-05-18 23:00] VITALS: BP 157/70
[2018-05-19] VITALS (7 sets, daily range): BP systolic 106–148; BP diastolic 54–71
--- NOTE | 2018-05-19 01:09 | NUR ---
PATIENT IS SWEATY, SUGAR CHECKED WAS 27, DEXTROSE 50% ADMIN, RECHECKED IN 15 MIN. WAS 147. PATIENT IS STABLE AT THIS TIME WILL MAKE MEDICAL TEAM AWARE.
[2018-05-19 08:55] LABS: BASOPHILS % 0.3 % (0.0-1.0); EOSINOPHILS # (AUTO) 0.2 (0.0-0.4); EOSINOPHILS % 2.3 % (0.0-6.0); HEMATOCRIT 24.3 % (38.2-49.6); HEMOGLOBIN 7.6 g/dL (14.0-18.0); LYMPHOCYTES # (AUTO) 1.8 (1.0-3.2); LYMPHOCYTES % 21.2 % (18.0-39.1); MEAN CORPUSCULAR HGB CONC 31.3 g/dL (31-35); MEAN CORPUSCULAR VOLUME 89.7 fL (81-99); MONOCYTES # (AUTO) 0.7 (0.2-0.8); MONOCYTES % 7.9 % (4.4-11.3); NEUTROPHILS # (AUTO) 5.9 (2.1-6.9); NEUTROPHILS % 67.8 % (38.7-80.0); PLATELET COUNT 164 x10e3/uL (140-360); RED BLOOD COUNT 2.71 x10e6/uL (4.3-5.7); RED CELL DISTRIBUTION WIDTH 16.5 % (11.7-14.4)
[2018-05-19] MEDS: ISOSORBIDE MONONITRATE 30 MG TAB CR PO SCH (09:04)
[2018-05-19] MEDS: PANTOPRAZOLE SOD 40 MG TABEC PO SCH (09:04)
[2018-05-19] MEDS: LISINOPRIL 10 MG TAB PO SCH (09:04)
[2018-05-19] MEDS: SEVELAMER CARBONATE 800 MG TAB PO SCH ×3 (09:04→17:04)
[2018-05-19] MEDS: SERTRALINE HCL 100 MG TAB PO SCH (09:04)
[2018-05-19] MEDS: AMLODIPINE BESYLATE 10 MG TAB PO SCH (09:04)
[2018-05-19] MEDS: HYDRALAZINE HCL 25 MG TAB PO SCH ×3 (09:04→21:50)
[2018-05-19] MEDS: MISOPROSTOL 100 MCG TAB PO SCH ×2 (09:04→17:04)
[2018-05-19] MEDS: FAMOTIDINE 20 MG TAB PO SCH ×2 (09:04→17:04)
[2018-05-19 09:42] LABS: ANION GAP 10.3 mmol/L (8-16); CALCIUM 8.6 mg/dL (8.4-10.2); CREATININE, SERUM 5.14 mg/dL (0.72-1.25); POTASSIUM 4.3 mmol/L (3.5-5.1)
--- NOTE | 2018-05-19 09:52 | NUR ---
Pt sleeping soundly at 0635 and 0950 and no family present. Senior Commercial Loan Officer left a card describing availability of vp account director and instructions on how to contact a vp account director. TRENTON MENDOZA Senior Commercial Loan Officer Spiritual Care Department O: [phone] Pager: [phone] ([phone] number calling from)
--- NOTE | 2018-05-19 16:04 | NUR ---
Nutrition Screen Note RD Recommendation for Physician: -Rec adding ADA to renal diet as medically appropriate Plan of Care: RD following, monitoring for tolerance and adequacy Nutrition reason for involvement: Diagnosis Primary Diagnose(s): 1. Pleural effusions including pleural effusion in the intralobar fissure also know as pseudotumor phenomenon. 2. Volume overload. PMH: ESRD on HD, HTN, DM, depression, insomnia Ht: 64in Wt: 140.5lb BMI: 24.1kg/m2 IBW: 130lb RD Assessment: (05/19) Chart reviewed. Labs and meds reviewed. 57yo M, who was admitted for fluids overload. Pt has been on HD for over 4 years. Visited pt in room who denied significant wt loss, denied decrease in appetite [employer]. Pt denied chewing/swallowing problems and nausea/vomiting. LBM 05/19, diarrhea (stool culture has been ordered). Pt is not interested in any nutrition intervention or education. Will continue to monitor and follow. Please consult as needed. Current Diet: renal diet Malnutrition Evaluation (05/19/2018) The patient does not meet criteria for a specified degree of malnutrition at this time. Will re-evaluate at follow-up as appropriate. Diet Education Needs Assessment: Diet education indicated, pt refused. Nutrition Care Level: low Signed: Tara Hickey, MS, RD, LD
[2018-05-19] MEDS ORDERED: SODIUM CHLORIDE 0.9% 1000ML 1,000 ML ONE (16:58)
[2018-05-19] MEDS: CEFTRIAXONE SOD 1 GM/NS 50 ML 50 ML IV SCH (18:06)
--- NOTE | 2018-05-19 19:20 | NUR ---
Patient visited in room during nursing rounds. Patient alert and oriented x3. Currently receiving hemodialysis at bedside. Dialysis nurse monitoring patient closely. Patient ambulatory prn. No c/o pain or any discomfort at this time. Will monitor closely.
[2018-05-19] MEDS: AZITHROMYCIN 500MG/NS 250 ML 250 ML IV SCH (21:50)
[2018-05-19] MEDS: TRAZODONE HCL 50 MG TAB PO SCH (21:50)
[2018-05-20] VITALS (8 sets, daily range): BP systolic 135–171; BP diastolic 65–74
--- NOTE | 2018-05-20 07:05 | NUR ---
bedside report received. Patient resting in bed and in no distress. Call renee within reach and bed in lowest position.
[2018-05-20] MEDS: ISOSORBIDE MONONITRATE 30 MG TAB CR PO SCH (09:00)
[2018-05-20] MEDS: MISOPROSTOL 100 MCG TAB PO SCH ×2 (09:00→17:00)
[2018-05-20] MEDS: FAMOTIDINE 20 MG TAB PO SCH ×2 (09:00→17:00)
[2018-05-20] MEDS: AMLODIPINE BESYLATE 10 MG TAB PO SCH (09:00)
[2018-05-20] MEDS: SEVELAMER CARBONATE 800 MG TAB PO SCH ×3 (09:00→17:00)
[2018-05-20] MEDS: SERTRALINE HCL 100 MG TAB PO SCH (09:00)
[2018-05-20] MEDS: LISINOPRIL 10 MG TAB PO SCH (09:00)
[2018-05-20] MEDS: HYDRALAZINE HCL 25 MG TAB PO SCH ×3 (09:00→22:00)
[2018-05-20] MEDS: PANTOPRAZOLE SOD 40 MG TABEC PO SCH (09:00)
[2018-05-20] MEDS ORDERED: SODIUM CHLORIDE 0.9% 250ML 250 ML IV ONE (11:30)
--- NOTE | 2018-05-20 12:59 | NUR ---
[facility] dialysis notified per MD order that patient will need dialysis and blood admin tomorrow 05/21/18
[2018-05-20] MEDS: CEFTRIAXONE SOD 1 GM/NS 50 ML 50 ML IV SCH (17:00)
--- NOTE | 2018-05-20 19:15 | NUR ---
manager shift nurse given report, patient aware of change, bed in lowest position and call renee within reach
--- NOTE | 2018-05-20 19:25 | NUR ---
Patient visited in room during nursing rounds. Patient alert and oriented x3. Patient currently resting comfortably in bed. Patient ambulatory prn. No c/o pain or any discomfort at this time. Patient aware scheduled for dialysis tomorrow with blood transfusion. Will monitor closely.
[2018-05-20] MEDS: AZITHROMYCIN 500MG/NS 250 ML 250 ML IV SCH (22:00)
[2018-05-20] MEDS: TRAZODONE HCL 50 MG TAB PO SCH (22:00)
[2018-05-21] VITALS (9 sets, daily range): BP systolic 100–145; BP diastolic 54–71
--- NOTE | 2018-05-21 07:05 | NUR ---
rounded with manager shift nurse, patient resting comfortably in bed and in no distress. Call renee within reach and bed in lowest position
[2018-05-21] MEDS: ISOSORBIDE MONONITRATE 30 MG TAB CR PO SCH (08:40)
[2018-05-21] MEDS: SEVELAMER CARBONATE 800 MG TAB PO SCH ×3 (08:40→17:20)
[2018-05-21] MEDS: PANTOPRAZOLE SOD 40 MG TABEC PO SCH (08:40)
[2018-05-21] MEDS: MISOPROSTOL 100 MCG TAB PO SCH ×2 (08:40→17:20)
[2018-05-21] MEDS: SERTRALINE HCL 100 MG TAB PO SCH (08:40)
[2018-05-21] MEDS: HYDRALAZINE HCL 25 MG TAB PO SCH ×3 (08:40→21:45)
[2018-05-21] MEDS: FAMOTIDINE 20 MG TAB PO SCH ×2 (08:40→17:20)
[2018-05-21] MEDS: AMLODIPINE BESYLATE 10 MG TAB PO SCH (08:40)
[2018-05-21] MEDS: LISINOPRIL 10 MG TAB PO SCH (08:40)
[2018-05-21 11:24] LABS: BASOPHILS % 0.6 % (0.0-1.0); EOSINOPHILS # (AUTO) 0.4 (0.0-0.4); EOSINOPHILS % 6.6 % (0.0-6.0); HEMATOCRIT 24.8 % (38.2-49.6); HEMOGLOBIN 7.7 g/dL (14.0-18.0); LYMPHOCYTES # (AUTO) 1.7 (1.0-3.2); LYMPHOCYTES % 27.7 % (18.0-39.1); MEAN CORPUSCULAR HEMOGLOBIN 27.7 pg (28-32); MEAN CORPUSCULAR VOLUME 89.2 fL (81-99); MONOCYTES # (AUTO) 0.4 (0.2-0.8); MONOCYTES % 6.8 % (4.4-11.3); NEUTROPHILS # (AUTO) 3.6 (2.1-6.9); PLATELET COUNT 170 x10e3/uL (140-360); RED BLOOD COUNT 2.78 x10e6/uL (4.3-5.7); RED CELL DISTRIBUTION WIDTH 15.9 % (11.7-14.4)
[2018-05-21 11:41] LABS: ANION GAP 10.9 mmol/L (8-16); CALCIUM 8.7 mg/dL (8.4-10.2); CREATININE, SERUM 5.27 mg/dL (0.72-1.25); POTASSIUM 4.9 mmol/L (3.5-5.1)
--- NOTE | 2018-05-21 11:50 | NUR ---
Instructions given to Delia the dialysis nurse by Dr Alex Galarza - patient does not need neither blood transfusion nor dialysis today.
--- NOTE | 2018-05-21 14:50 | Progress Note ---
DATE: SUBJECTIVE: The patient is a 57-year-old male. I saw the patient on behalf of Dr. Armijo. The patient is eating better and breathing better. He had dialysis a few days ago. He was admitted due to increasing shortness of breath and found to have pulmonary edema and needed to have dialysis. He has history of end-stage renal disease, hypertension, type 2 diabetes mellitus, and major depression. PHYSICAL EXAMINATION GENERAL: He is alert and cooperative. VITAL SIGNS: He is afebrile, pulse 68, respiratory rate 18, blood pressure 100/54. HEENT: Atraumatic. NECK: No tenderness. LUNGS: Decreased breath sounds in both bases. HEART: No heart murmurs. ABDOMEN: Soft. EXTREMITIES: There is a AV fistula in the left arm. Minimal pedal edema. LABS: Hemoglobin was 7.7, the rest of the CBC was unremarkable. Sugar was 137. IMPRESSION 1. End-stage renal disease. 2. Hypertension. 3. Type 2 diabetes mellitus. 4. Major depression. PLAN: Patient is currently on sertraline 100 mg daily, isosorbide 120 mg daily, Protonix 40 daily, lisinopril 20 daily, Pepcid 20 mg b.i.d., Norvasc 10 mg a day. He is on Zithromax 250 IV daily, Rocephin q.24 hours, trazodone 100 mg q.h.s. p.o., Overall, the patient is better and we will follow him up with you. Job#: [id number] ELOY NIX
[2018-05-21] MEDS: CEFTRIAXONE SOD 1 GM/NS 50 ML 50 ML IV SCH (17:00)
--- NOTE | 2018-05-21 19:00 | NUR ---
Received patient from day nurse, patient is alert and oriented, introduced myself to patient and patient made aware of the importance of calling for help, patient verbalized understanding. safety and fall precaution maintained as per hospital protocol:bed in lowest position and locked, needed items beside bed and call renee placed close to patient, yellow socks on patient, bed alarm set, and room made free of clutter. patient is currently stable will continue to monitor. Stool sample sent to the lab..
--- NOTE | 2018-05-21 19:30 | NUR ---
walking rounds made with shift boss nurse, patient resting in bed and in no distress. Call renee within reach and bed in lowest position.
[2018-05-21] MEDS: TRAZODONE HCL 50 MG TAB PO SCH (21:45)
[2018-05-21] MEDS: AZITHROMYCIN 500MG/NS 250 ML 250 ML IV SCH (21:45)
--- NOTE | 2018-05-21 22:00 | NUR ---
2000: patient rounded : bed in lowest position and locked, needed items beside bed and call renee placed close to patient, yellow socks on patient, bed alarm is on, room is free of clutter. patient is currently stable will continue to monitor. 2200: patient rounded : bed in lowest position and locked, needed items beside bed and call renee placed close to patient, yellow socks on patient, bed alarm is on, room is free of clutter. patient is currently stable will continue to monitor.
[2018-05-22] VITALS (7 sets, daily range): BP systolic 134–162; BP diastolic 64–79
--- NOTE | 2018-05-22 06:00 | NUR ---
0400: Patient rounded and stable. 0600: patient rounded and stable.
--- NOTE | 2018-05-22 07:07 | NUR ---
patient endorsed to next shift for continuity of care.
[2018-05-22] MEDS: FAMOTIDINE 20 MG TAB PO SCH ×2 (08:55→18:00)
[2018-05-22] MEDS: MISOPROSTOL 100 MCG TAB PO SCH ×2 (08:55→18:00)
[2018-05-22] MEDS: PANTOPRAZOLE SOD 40 MG TABEC PO SCH (08:55)
[2018-05-22] MEDS: AMLODIPINE BESYLATE 10 MG TAB PO SCH (08:55)
[2018-05-22] MEDS: LISINOPRIL 10 MG TAB PO SCH (08:55)
[2018-05-22] MEDS: HYDRALAZINE HCL 25 MG TAB PO SCH ×3 (08:55→21:55)
[2018-05-22] MEDS: SEVELAMER CARBONATE 800 MG TAB PO SCH ×3 (08:55→18:00)
[2018-05-22] MEDS: ISOSORBIDE MONONITRATE 30 MG TAB CR PO SCH (08:55)
[2018-05-22] MEDS: SERTRALINE HCL 100 MG TAB PO SCH (08:55)
--- NOTE | 2018-05-22 12:00 | NUR ---
per Dr Shaikh, patient will need dialysis and blood transfusion tomorrow 05/[address] Maldonado had previously ordered. Addendum: 05/22/18 at 1318 by Charla Birch RN Dr. Montgomery* Addendum: 05/22/18 at 1333 by Charla Birch RN note is correct the first entry. Dr Natasha Maldonado
--- NOTE | 2018-05-22 16:11 | Progress Note ---
DATE: COVERING FOR: Dr. Armijo. SUBJECTIVE: Patient does not have new complaints today, is sitting in a chair. OBJECTIVE: VITAL SIGNS: He is affable, pulse 77, blood pressure 156/79, respiratory rate 16, oxygen saturation 99%. HEENT: Atraumatic. NECK: No tenderness. LUNGS: Pretty clean. HEART: No heart murmurs. ABDOMEN: Soft. EXTREMITIES: No pedal edema. LABS: BUN 19, creatinine 5.27, sugar 159. Hemoglobin 7.7. Rest of the labs unremarkable. IMPRESSION 1. End-stage renal disease, on hemodialysis. 2. Hypertension. 3. Type 2 diabetes mellitus. 4. Major depression. RECOMMENDATIONS: To continue with Rocephin q.24 hours, Norvasc 10 mg a day, lisinopril 20 a day, Pepcid 20 b.i.d., hydralazine 10 mg q.4, misoprostol 200 mcg b.i.d., isosorbide 120 daily, and Protonix 40 mg a day. Overall, as reported, patient is stable. Job#: [id number] CARROLL
[2018-05-22] MEDS: CEFTRIAXONE SOD 1 GM/NS 50 ML 50 ML IV SCH (18:00)
--- NOTE | 2018-05-22 19:15 | NUR ---
report given to scientific editor nurse, patient aware of change. Call renee within reach and bed in lowest position
[2018-05-22] MEDS: TRAZODONE HCL 50 MG TAB PO SCH (21:55)
[2018-05-22] MEDS: AZITHROMYCIN 500MG/NS 250 ML 250 ML IV SCH (21:55)
[2018-05-23] VITALS (8 sets, daily range): BP systolic 123–169; BP diastolic 58–86
--- NOTE | 2018-05-23 07:33 | NUR ---
Report given to day nurse(Nick) for continuity of care.
[2018-05-23 08:37] LABS: BASOPHILS # (AUTO) 0.1 (0.0-0.1); BASOPHILS % 0.8 % (0.0-1.0); EOSINOPHILS # (AUTO) 0.4 (0.0-0.4); EOSINOPHILS % 6.6 % (0.0-6.0); HEMOGLOBIN 7.3 g/dL (14.0-18.0); LYMPHOCYTES % 31.7 % (18.0-39.1); MEAN CORPUSCULAR HEMOGLOBIN 27.9 pg (28-32); MEAN CORPUSCULAR HGB CONC 31.7 g/dL (31-35); MEAN CORPUSCULAR VOLUME 87.8 fL (81-99); MONOCYTES # (AUTO) 0.4 (0.2-0.8); MONOCYTES % 6.8 % (4.4-11.3); NEUTROPHILS # (AUTO) 3.4 (2.1-6.9); NEUTROPHILS % 53.8 % (38.7-80.0); PLATELET COUNT 162 x10e3/uL (140-360); RED BLOOD COUNT 2.62 x10e6/uL (4.3-5.7); RED CELL DISTRIBUTION WIDTH 15.7 % (11.7-14.4)
[2018-05-23] MEDS: MISOPROSTOL 100 MCG TAB PO SCH ×2 (08:53→18:26)
[2018-05-23] MEDS: SEVELAMER CARBONATE 800 MG TAB PO SCH ×3 (08:53→18:26)
[2018-05-23] MEDS: SERTRALINE HCL 100 MG TAB PO SCH (08:54)
[2018-05-23] MEDS: PANTOPRAZOLE SOD 40 MG TABEC PO SCH (08:54)
[2018-05-23] MEDS: FAMOTIDINE 20 MG TAB PO SCH ×2 (08:54→18:26)
--- NOTE | 2018-05-23 08:55 | NUR ---
Pt received resting in bed. Alert and oriented x4 with left AV fistula. Pt for dialysis, and 2 unit of PRBC for hgb 7.3. Oriented to staff and surroundings, encouraged to press call renee if help needed. All meds given as ordered. Emotional support given. Fall precautions maintained. Will monitor
[2018-05-23 08:57] LABS: ANION GAP 10.5 mmol/L (8-16); CALCIUM 8.7 mg/dL (8.4-10.2); CREATININE, SERUM 7.16 mg/dL (0.72-1.25)
[2018-05-23] MEDS: HYDRALAZINE HCL 25 MG TAB PO SCH ×3 (09:00→21:45)
[2018-05-23] MEDS: ISOSORBIDE MONONITRATE 30 MG TAB CR PO SCH (09:00)
[2018-05-23 09:04] LABS: POTASSIUM 5.5 mmol/L (3.5-5.1)
[2018-05-23] MEDS ORDERED: SODIUM CHLORIDE 0.9% 1000ML 2,000 ML ONE (10:15)
--- NOTE | 2018-05-23 12:30 | NUR ---
Pt with hgb 7.3. 2 units PRBC ordered. First unit of PRBC verified by two nurses. Unit number [id number]. Blood given during dialysis (for 30 minutes) Emotional support given. Will monitor
--- NOTE | 2018-05-23 13:25 | NUR ---
Second unit PRBC started at 1325. Blood verified by 2 nurses. Unit number [id number]. Emotional supprt given. Blood given during hemodialysis (for 30 minutes). Will monitor
[2018-05-23] MEDS: LISINOPRIL 10 MG TAB PO SCH (15:01)
[2018-05-23] MEDS: AMLODIPINE BESYLATE 10 MG TAB PO SCH (15:01)
--- NOTE | 2018-05-23 15:49 | NUR ---
PT IS FROM [facility] AND WILL RETURN THERE UPON DISCHARGE
--- NOTE | 2018-05-23 16:33 | NUR ---
RECEIVED CALL FROM DR. TINAJERO REQUESTING PT'S HD BE CONTACTED TO INCREASE HD DAYS TO 3X/WEEK. ALSO ORDER HOME HEALTH FOR SN / PT. MET W THE PT AT THE BEDSIDE. STATES HE GOES TO [facility] @ [address] [place] [id number] Phone: / . REQUEST FAXED TO DIALYSIS CENTER.
[2018-05-23] MEDS ORDERED: SODIUM CHLORIDE 0.9% 250ML 250 ML ONE (18:23)
[2018-05-23] MEDS: CEFTRIAXONE SOD 1 GM/NS 50 ML 50 ML IV SCH (18:26)
--- NOTE | 2018-05-23 19:19 | NUR ---
Labs ordered for AM. Emotional support given. Call renee within reach. Will endorse to next shift
--- NOTE | 2018-05-23 19:30 | NUR ---
Report received from morning nurse. Pt alert and orient to name. Pt lying in bed HOB 30 degrees. Denies pain at this time. No acute distress noted. Call renee within reach. Will continue to monitor.
[2018-05-23] MEDS: TRAZODONE HCL 50 MG TAB PO SCH (21:45)
[2018-05-23] MEDS: AZITHROMYCIN 500MG/NS 250 ML 250 ML IV SCH (21:45)
[2018-05-24] VITALS (8 sets, daily range): BP systolic 120–156; BP diastolic 61–77
[2018-05-24] MEDS ORDERED: SODIUM CHLORIDE 0.9% 1000ML 2,000 ML ONE (05:27)
[2018-05-24 06:12] LABS: BASOPHILS # (AUTO) 0.1 (0.0-0.1); EOSINOPHILS # (AUTO) 0.4 (0.0-0.4); EOSINOPHILS % 7.3 % (0.0-6.0); HEMATOCRIT 29.5 % (38.2-49.6); HEMOGLOBIN 9.6 g/dL (14.0-18.0); LYMPHOCYTES # (AUTO) 1.9 (1.0-3.2); MEAN CORPUSCULAR HEMOGLOBIN 28.5 pg (28-32); MEAN CORPUSCULAR HGB CONC 32.5 g/dL (31-35); MEAN CORPUSCULAR VOLUME 87.5 fL (81-99); MONOCYTES # (AUTO) 0.5 (0.2-0.8); MONOCYTES % 9.2 % (4.4-11.3); NEUTROPHILS % 50.5 % (38.7-80.0); PLATELET COUNT 160 x10e3/uL (140-360); RED BLOOD COUNT 3.37 x10e6/uL (4.3-5.7); RED CELL DISTRIBUTION WIDTH 15.1 % (11.7-14.4)
[2018-05-24 06:39] LABS: ANION GAP 10.8 mmol/L (8-16); CALCIUM 8.6 mg/dL (8.4-10.2); CREATININE, SERUM 4.32 mg/dL (0.72-1.25); MAGNESIUM 1.8 MG/DL (1.3-2.1); POTASSIUM 4.8 mmol/L (3.5-5.1)
--- NOTE | 2018-05-24 08:15 | NUR ---
Pt received resting in bed. All meds given as ordered. Emotional support given. Call renee within reach. Will monitor
[2018-05-24] MEDS: AMLODIPINE BESYLATE 10 MG TAB PO SCH (08:16)
[2018-05-24] MEDS: MISOPROSTOL 100 MCG TAB PO SCH ×2 (08:16→17:15)
[2018-05-24] MEDS: SEVELAMER CARBONATE 800 MG TAB PO SCH ×3 (08:16→17:15)
[2018-05-24] MEDS: FAMOTIDINE 20 MG TAB PO SCH ×2 (08:16→17:15)
[2018-05-24] MEDS: HYDRALAZINE HCL 25 MG TAB PO SCH ×3 (08:16→21:47)
[2018-05-24] MEDS: ISOSORBIDE MONONITRATE 30 MG TAB CR PO SCH (08:16)
[2018-05-24] MEDS: PANTOPRAZOLE SOD 40 MG TABEC PO SCH (08:17)
[2018-05-24] MEDS: LISINOPRIL 10 MG TAB PO SCH (08:17)
[2018-05-24] MEDS: SERTRALINE HCL 100 MG TAB PO SCH (08:17)
--- NOTE | 2018-05-24 13:56 | NUR ---
PT PROVIDED CHOICE FOR HOME HEALTH. PT REQUESTED AN IN NETWORK PROVIDER. AGREED W [facility], THEN CASSIDY ROSAS IF NEEDED. REFERRAL FAXED TO [facility] @ OFF: [phone] / FAX: [phone].
[2018-05-24] MEDS: CEFTRIAXONE SOD 1 GM/NS 50 ML 50 ML IV SCH (17:14)
--- NOTE | 2018-05-24 19:20 | NUR ---
Report received from morning nurse. Pt alert and orient to name. Pt lying prone in bed. Denies pain at this time. No acute distress noted. Call renee within reach. Will continue to monitor
[2018-05-24] MEDS: TRAZODONE HCL 50 MG TAB PO SCH (21:47)
[2018-05-24] MEDS: AZITHROMYCIN 500MG/NS 250 ML 250 ML IV SCH (21:47)
[2018-05-25] VITALS: BP 113/54
--- NOTE | 2018-05-25 02:30 | Consultation ---
DATE OF CONSULTATION: Renal consultation. Thank you for the consult. HISTORY OF PRESENT ILLNESS: Mr. Jennings is a well known patient of mine with end-stage renal disease, on hemodialysis Wednesday, Wednesday, Wednesday at [facility] under my care. The patient also has a prior history of hypertension and end-stage renal disease secondary to that. Apparently, he missed his dialysis treatment and came in with shortness of breath and volume overload. Had dialysis done yesterday. The patient will be due for dialysis again tomorrow. He is in no acute distress this afternoon. He has no nausea, no chest pain, no fever, no chills, no abdominal pain. No other symptoms. Renal consultation has been asked to provide a dialysis while he is here. PAST MEDICAL HISTORY: As outlined above. MEDICATIONS: He takes amlodipine, hydralazine, lisinopril, sertraline, sevelamer. REVIEW OF SYSTEMS: See HPI. Otherwise, all systems negative. SOCIAL HISTORY: No tobacco. No alcohol use. FAMILY HISTORY: Noncontributory. ALLERGIES: TO ACETAMINOPHEN AND ASPIRIN. PHYSICAL EXAMINATION: VITAL SIGNS: Blood pressure is 137/71, pulse 76, afebrile. HEENT: No cervical lymphadenopathy. NECK: Supple without masses. No JVD. CHEST: expansion. No chest wall tenderness. LUNGS: Clear to auscultation bilaterally. CARDIOVASCULAR: S1 and S2. rubs or murmur. ABDOMEN: Soft. Positive bowel sounds. Nontender. No organomegaly. EXTREMITIES: No edema. No clubbing. No cyanosis. NEUROLOGIC: Awake, alert, oriented [QAMARKER] grossly nonfocal exam. LABS: H and H of 9.6 and 29.5. Sodium 136, potassium 4.8, BUN is 18, creatinine 4.32. IMPRESSION AND PLAN: 1. End-stage renal disease. Continue dialysis Wednesday, Wednesday, and Wednesday per schedule. 2. Hypertension. blood pressure control. Continue to monitor. 3. Anemia of chronic disease, stable. We will continue to monitor closely and make further recommendations. Thank you follow the patient closely with you and make further . MD RACH Fitzgerald/MODL /[id number] cc: Jorge Alberto Shaikh MD
[2018-05-25 04:00] VITALS: BP 167/88
[2018-05-25 06:05] LABS: BASOPHILS # (AUTO) 0.1 (0.0-0.1); BASOPHILS % 0.7 % (0.0-1.0); EOSINOPHILS # (AUTO) 0.4 (0.0-0.4); EOSINOPHILS % 5.7 % (0.0-6.0); HEMATOCRIT 30.1 % (38.2-49.6); HEMOGLOBIN 9.7 g/dL (14.0-18.0); LYMPHOCYTES # (AUTO) 2.2 (1.0-3.2); LYMPHOCYTES % 32.1 % (18.0-39.1); MEAN CORPUSCULAR HEMOGLOBIN 28.1 pg (28-32); MEAN CORPUSCULAR HGB CONC 32.2 g/dL (31-35); MEAN CORPUSCULAR VOLUME 87.2 fL (81-99); MONOCYTES # (AUTO) 0.6 (0.2-0.8); NEUTROPHILS # (AUTO) 3.5 (2.1-6.9); NEUTROPHILS % 52.2 % (38.7-80.0); PLATELET COUNT 175 x10e3/uL (140-360); RED BLOOD COUNT 3.45 x10e6/uL (4.3-5.7); RED CELL DISTRIBUTION WIDTH 14.8 % (11.7-14.4)
[2018-05-25 06:18] LABS: ANION GAP 9.5 mmol/L (8-16); CALCIUM 8.8 mg/dL (8.4-10.2); CREATININE, SERUM 5.85 mg/dL (0.72-1.25); MAGNESIUM 1.8 MG/DL (1.3-2.1); PHOSPHORUS 3.6 MG/DL (2.3-4.7); POTASSIUM 4.5 mmol/L (3.5-5.1)
[2018-05-25] MEDS ORDERED: SODIUM CHLORIDE 0.9% 1000ML 1,000 ML ONE (06:29)
--- NOTE | 2018-05-25 07:00 | NUR ---
SHIFT REPORT GIVEN BY NIGHT RN WHILE ROUNDING BS. PT DENIES NEEDS AT THIS TIME.
[2018-05-25 08:00] VITALS: BP 164/85
[2018-05-25] MEDS: HYDRALAZINE HCL 25 MG TAB PO SCH (08:35)
[2018-05-25] MEDS: AMLODIPINE BESYLATE 10 MG TAB PO SCH (08:36)
[2018-05-25] MEDS: ISOSORBIDE MONONITRATE 30 MG TAB CR PO SCH (08:36)
[2018-05-25] MEDS: LISINOPRIL 10 MG TAB PO SCH (08:37)
[2018-05-25] MEDS ORDERED: ALBUMIN 25% 12.5GM 50ML 100 ML IV PRN (08:45)
[2018-05-25] MEDS ORDERED: SODIUM CHLORIDE 0.9% 1000ML 2,000 ML IV PRN (08:45)
[2018-05-25] MEDS ORDERED: MANNITOL 25% 12.5GM/50 ML VIAL IV PRN (08:45)
[2018-05-25] MEDS: PANTOPRAZOLE SOD 40 MG TABEC PO SCH (08:53)
[2018-05-25] MEDS: SEVELAMER CARBONATE 800 MG TAB PO SCH ×2 (08:53→12:26)
[2018-05-25] MEDS: FAMOTIDINE 20 MG TAB PO SCH (08:53)
[2018-05-25] MEDS: SERTRALINE HCL 100 MG TAB PO SCH (08:53)
[2018-05-25] MEDS: MISOPROSTOL 100 MCG TAB PO SCH (08:53)
[2018-05-25 09:00] VITALS: BP 164/85
--- NOTE | 2018-05-25 10:56 | NUR ---
RECEIVED CALL FROM [facility] STATING THEY ARE OUT OF NETWORK FOR THE PT'S INSURANCE. WILL FIND AGENCY IN NETWORK.
[2018-05-25 12:30] VITALS: BP 174/84
--- NOTE | 2018-05-25 15:45 | NUR ---
SPOKE WITH NUTRITION THERAPIST AT [facility], SHE STATES THE PATIENT HAS ALWAYS BEEN SET UP ON , AND FRIDAYS, BUT HE WAS NONCOMPLIANT AND CHOOSE NOT TO GO ON FRIDAYS. THEY DID RECEIVE THE ORDER BUT STATE IT IS UP TO THE PATIENT TO SHOW UP ON SCHEDULED DAYS.
--- NOTE | 2018-05-25 19:19 | Progress Note ---
DATE: 05/25/2018 Renal Progress Note SUBJECTIVE: Followed for end-stage renal disease, tolerating dialysis on Wednesday, Wednesday, and Wednesday. Dialysis took place today without problems. No nausea, no vomiting, no shortness of breath. OBJECTIVE: VITAL SIGNS: Have been noted and are stable. Blood pressure 160s/80s, pulse 75, and afebrile. LUNGS: Clear to auscultation bilaterally. CARDIOVASCULAR: S1 and S2. No rub. ABDOMEN: Soft. Nontender. EXTREMITIES: No edema. LABORATORY DATA: Hemoglobin 9.7 and hematocrit 30.1. Potassium 4.5, BUN 30, and creatinine 5.85. IMPRESSION AND PLAN: 1. End-stage renal disease. Continue dialysis on Wednesday, Wednesday, and Wednesday. From a renal standpoint, can be discharged. 2. Hypertension, stable. 3. Anemia of chronic disease, stable. Nacho Abdi MD /MODL /[id number]
== END 2018-05-25 15:52 | disposition home or self-care (01) | DRG 682 ==
LOC: ER 23:32 → ERHOLD 05-17 01:51 → INTOOBSV 05-17 01:51 → MED/SURG3 05-17 15:27 → OBSVTOIN 05-19 09:15
PROVIDERS: ADMIT Internal Medicine; ATTEND Internal Medicine
PROC: 5A1D70Z Performance of Urinary Filtration, Intermittent, Less than 6 Hours Per Day (ICD-10-PCS; principal; 2018-05-19)
PROC: 30233N1 Transfusion of Nonautologous Red Blood Cells into Peripheral Vein, Percutaneous Approach (ICD-10-PCS; 2018-05-23)
PROC: 5A1D70Z Performance of Urinary Filtration, Intermittent, Less than 6 Hours Per Day (ICD-10-PCS; 2018-05-23)
PROC: 5A1D70Z Performance of Urinary Filtration, Intermittent, Less than 6 Hours Per Day (ICD-10-PCS; 2018-05-25)
DX: I12.0 Hypertensive chronic kidney disease with stage 5 chronic kidney disease or end stage renal disease (principal); N18.6 End stage renal disease; J91.8 Pleural effusion in other conditions classified elsewhere; N25.81 Secondary hyperparathyroidism of renal origin; E11.22 Type 2 diabetes mellitus with diabetic chronic kidney disease; Z99.2 Dependence on renal dialysis; D63.1 Anemia in chronic kidney disease; Z91.19 Patient's noncompliance with other medical treatment and regimen; F31.9 Bipolar disorder, unspecified; R09.02 Hypoxemia
CPT/HCPCS: 36415; 71045; 71250; 80048; 80053; 82550; 82553; 82948; 83735; 83880; 84100; 84484; 85025; 86704; 86706; 86850; 86900; 86920; 87340; 87493; 90962; 93005; 93306; 93880; 99285; G0378; J0360; J0456; J0696; J7030; J7050; J7799; P9016

== ENCOUNTER 2019-08-30 11:51 | Emergency (ER) | payer OTHER ==
[~2019-08-30] VITALS: Ht 162.6 cm; Wt 57.2 kg
[~2019-08-30 11:51] MED LIST: ACETAMINOPHEN325 M1 PO; AMLODIPINE BESY10 MG PO; COREG3.125 MG PO; CYTOTEC100 MCG PO; HYDRALAZINE HCL25 MG PO; IMODIUM2 MG PO; ISOSORBIDE MON120 MG PO; LACTULOSE20 GM/30 M PO; LEVEMIR100 UNIT/1 SC; LISINOPRIL10 MG PO; LYRICA25 MG PO; MOTRIN200 MG PO; PANTOPRAZOLE SO40 MG PO; PEPCID20 MG PO; RENVELA0.8 GM PO; SEROQUEL25 MG PO; TRAZODONE HCL100 MG PO; ZOLOFT100 MG PO; trazadone
--- OUTSIDE RECORDS SUMMARY | 2019-08-30 11:55 | XMS REPORT | Continuity of Care Document ---
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 [facility] ESRD, NAUSEA W/VOMITING, DIABETES Active 12/29/2016 [facility] LOW BLOOD SUGAR Active 12/29/2016 [facility] BILATERLA PLEURAL EFFUSION Act [place] 08/08/2016 [facility] SHORTNESS OF BREATH Active 08/08/2016 [facility] FLUID OVERLOAD/ SOB Active 07/24/2016 [facility] FLUID OVERLOAD, DIALYSIS PATIENT Active 07/24/2016 [facility] VOLUME OVERLOAD, ESRD ON HD Ac tive 11/01/2015 [facility] FLUID OVERLOAD Active 11/01/2015 [facility] VOLUME OVERLOAD/HYPERKALEMIA A ctive 11/01/2015 [facility] CHEST PAIN Active 10/20/2015 [facility] HYPERKALEMIA, VOLUME OVERLOAD, CHEST TUAN Active 10/20/2015 [facility] ACUTE ON CHRONIC DIASTOLIC HEART FAILURE Active 10/20/2015 [facility] CHF Active 0 05/13/2015 [facility] DYSPNEA; CONGESTIVE HEART FAILURE; PLEUR Active 05/20/2013 [facility] ABDOMINAL PAIN Active 04/12/2012 [facility] Bipolar (qualifier value) Acti ve Problem 11/2016 [facility] Asthma (disorder) Resolved Problem 10/15/2017 [facility] Chronic obstructive lung disease (disorder) Active Problem 10/15/2017 [facility] Diabetes mellitus (disorder) A ctive Problem [facility] End stage renal disease (disorder) Active Problem [facility] Hypertensive disorder, systemic arterial (disorder) Active Problem 10/15/2017 [facility] Schizophrenia (disorder) Active Problem 10/15/2017 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 chronic kidney disease, or end stage renal disease 10/15/2017 [facility] Heart failure, unspecified 10/15/2017 [facility] End stage renal disease 10/15/2017 [facility] Gastro-esophageal reflux disease without esophagitis 10/15/2017 [facility] Elevated white blood cell count, unspecified 10/15/2017 [facility] Dependence on renal dialysis 10/15/2017 [facility] Chronic obstructive pulmonary disease, unspecified 10/15/2017 [facility] Schizophrenia, unspecified 10/15/2017 [facility] Personal history of transient ischemic a ttack (TIA), and cerebral infarction without residual deficits 10/15/2017 [facility] 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 10/15/2017 [facility] CHF NOS Active [facility] PLEURAL EFFUSION NOS Active [facility] EDEMA Active [facility] HEART FAILURE, UNSPECIFIED Act [place] [facility] ts HYPERKALEMIA Active [facility] FLUID OVERLOAD, UNSPECIFIED Ac tive [facility] DEPENDENCE ON RENAL DIALYSIS A ctive [facility] PLEURAL EFFUSION, NOT ELSEWHERE CLASSIFI Active [facility] NAUSEA WITH VOMITING, UNSPECIFIED Active [facility] TYPE 2 DIABETES MELLITUS WITH HYPOGLYCEM Active [facility] COUGH Active [facility] ELEVATED WHITE BLOOD CELL COUNT, UNSPECI Active [facility] END STAGE RENAL DISEASE Active [facility] Medications Medication Details Route Status Patient Instructions Ordering Provider Order Date Source cefepime Notes: (Same As: Esteban monroy) MEDICATION WASTE Product Size: 1000 mg Product Wasted: ___ mg Inactive 07/08/2017 [facility] insulin glargine Notes: (Same as: Lantus) Do not hold insulin without contacting prescriber WASTE: F/P - Black; E - Municipal Trash Bin "single patient use only" Inactive 07/08/2017 [facility] Docusate Sodium 50 MG / sennosides, CORRECTION 8.6 MG Oral Tablet Notes: (Same as Senokot-S) Equiv. to Gita-Colace. Inactive 07/08/2017 [facility] Norvasc Notes: (Same as: Norva sc) Inactive 07/08/2017 [facility] Lisinopril Notes: (Same as: Pr inivil, Zestril) Inactive 07/08/2017 [facility] Isosorbide Notes: (Same as:Imd ur) "Do Not Crush" Take on empty stomach/ full glass of water. Do not crush Inactive 07/08/2017 [facility] Lyrica Notes: (Same as: Lyrica) Inactive 07/08/2017 [facility] Renvela Notes: Same as: Renvela Inactive 07/08/2017 [facility] Levemir 20 unit, Route: SUB-Q, Drug form: SOLN, QAM (Insulin), Dosing Weight 62, kg, Start date: 07/08/17 7:30:00 CDT, Duration: 30 day, Stop date: 08/06/17 7:30:00 CDT No Longer Active 07/08/2017 [facility] Hydralazine Hydrochloride 25 MG Oral Tablet Notes: (Same as: Apresoline) May interfere w/enteral feedings Take With Food. Inactive 07/08/2017 [facility] Melatonin 3 MG Extended Release Tablet Notes: (Same as: Melatonin) No Longer Active 07/08/2017 [facility] Coreg Notes: Give with food. ( Same As: Coreg) No Longer Active 07/08/2017 [facility] Zoloft Notes: (Same as: Zolof t) No Longer Active 07/08/2017 [facility] Seroquel Notes: (Same as: SERO quel) No Longer Active 07/08/2017 [facility] heparin Notes: porcine heparin No Longer Active 07/08/2017 [facility] Lactulose 667 MG/ML Oral Solution Notes: (Same as:Chronulac) No Longer Active 07/08/2017 [facility] Insulin Lispro Notes: (Same as : Humalog ) Roll in palms of hands gently; Do not shake `vigorously. "Single Patient Use Only " WASTE: F/P - Black; E - Municipal Trash Bin Stable for 28 days at room temp erature. Expires in days from Date No Longer Active 07/07/2017 [facility] Glucagon 1 mg, Route: IM, Drug form: PDR/INJ, PRN, Dosing Weight 62, kg, PRN Blood Glucose Results, Start date: 07/07/17 17:46:00 CDT, Duration: 30 day, Stop date: 08/06/17 17:45:00 CDT No Longer Active 07/07/2017 [facility] Dextrose 50% Syringe 25 gm, 50 mL, Route: IVP, Drug Form: INJ, Dosing Weight 62, kg, PRN, PRN Blood Glucose Results, Start date: 07/07/17 17:46:00 CDT, Duration: 30 day, Stop date: 08/06/17 17:45:00 CDT No Longer Active 07/07/2017 [facility] Nitroglycerin 0.4 MG Sublingual Tablet [Nitrostat] Notes: (Same as:Nitroquick, Nitrostat) "Do Not Crush" Sublingual tablet No Longer Active 07/07/2017 [facility] Robitussin 100 mg/5 mL oral liquid Notes: (Same as: Robitussin) No Longer Active 07/07/2017 [facility] tramadol hydrochloride 50 MG Oral Tablet Notes: Not to exceed 400mg/day. (Same As: Ultram) No Longer Active 07/07/2017 [facility] Clonidine Hydrochloride 0.1 MG Oral Tablet Notes: (Same As: Catapres) No Longer Active 07/07/2017 [facility] Protonix Notes: Tablet should not be chewed or crushed. (Same as: Protonix) No Longer Active 07/07/2017 [facility] Albuterol 0.833 MG/ML / Ipratropium Brom alejandro 0.167 MG/ML Inhalant Solution [DuoNeb] Notes: (Same as: Duoneb) No Longer Active 07/07/2017 [facility] GI cocktail Notes: G[place]I. [place] = antacid with simethicone 22.5 mL - lidocaine viscous 7.5 mL No Longer Active 07/07/2017 [facility] Albuterol 0.833 MG/ML / Ipratropium Brom alejandro 0.167 MG/ML Inhalant Solution [DuoNeb] 3 mL, NEB, QID, PRN as needed for shortn ess of breath or wheezing Active 07/07/2017 [facility] Aquaphor Healing topical ointment 1 appl, TOP, Daily, (bilateral lower extremities) Active 07/07/2017 [facility] Petrolatum 0.41 MG/MG Topical Ointment [Aquaphor] 1 appl, TOP, Daily, (bilateral lower extremities) Active 07/07/2017 [facility] Insulin, Aspart, Human 100 UNT/ML Inject able Solution [NovoLog] 400 = 10 units and call MD Active 07/07/2017 [facility] Insulin, Aspart, Human 100 UNT/ML Inject able Solution [NovoLog] 400 = 10 units and call MD Active 07/07/2017 [facility] insulin detemir 100 UNT/ML Injectable So lution [Levemir] 20 unit, SUB-Q, QAM (Insulin) Active 07/07/2017 [facility] quetiapine 50 MG Oral Tablet [Seroquel] 50 mg = 1 tab, PO, Bedtime, (150 mg at bedtime) Active 07/07/2017 [facility] glucagon recombinant 1 mg injection 1 mg, IM, Q15Min, PRN Blood Glucose Results, (Blood Glucose less than 60 mg/dL) No Longer Active 07/07/2017 [facility] tramadol hydrochloride 50 MG Oral Tablet 50 mg = 1 tab, PO, TID, PRN Pain Score 4-6 Active 07/07/2017 [facility] Sertraline 50 MG Oral Tablet [Zoloft] 50 mg = 1 tab, PO, Bedtime Active 07/07/2017 [facility] Melatonin 3 MG Extended Release Tablet 3 mg = 1 tab, PO, Bedtime Active 07/07/2017 [facility] quetiapine 100 MG Oral Tablet [Seroquel] 100 mg = 1 tab, PO, Bedtime, (150 mg at bedtime) Active 07/07/2017 [facility] Robitussin 100 mg/5 mL oral liquid 200 mg = 10 mL, PO, Q6H, PRN Cough Active 07/07/2017 [facility] pregabalin 25 MG Oral Capsule [Lyrica] 25 mg = 1 cap, PO, Daily Active 07/07/2017 [facility] Nitroglycerin 0.4 MG Sublingual Tablet [Nitrostat] 0.4 mg = 1 tab, SL, Q5Min, If chest pain not relieved in 5 minutes after first dose, seek immediate medical attention Active 07/07/2017 [facility] Clonidine Hydrochloride 0.1 MG Oral Tablet 160) Active 07/07/2017 [facility] Senna S oral tablet 2 tab, PO, BID Active 07/07/2017 [facility] Misoprostol 0.2 MG Oral Tablet [Cytotec] 200 microgram = 1 tab, PO, BID-Before Meals Active 07/07/2017 [facility] carvedilol 3.13 MG Oral Tablet [Coreg] 3.125 mg = 1 tab, PO, Q12H Active 07/07/2017 [facility] Lactulose 667 MG/ML Oral Solution 20 gm = 30 mL, PO, Bedtime Active 07/07/2017 [facility] Hydralazine Hydrochloride 25 MG Oral Tablet 25 mg = 1 tab, PO, Q8H, (Hold for SBP < 130 or HR < 60) Active 07/07/2017 [facility] Amlodipine 10 MG Oral Tablet [Norvasc] 10 mg = 1 tab, PO, Daily, (Hold for SBP < 130 or HR < 60) Active 07/07/2017 [facility] Sloane-Han Rx oral tablet 1 tab , PO, Daily Active 07/07/2017 [facility] pantoprazole 40 MG Enteric Coated Tablet [Protonix] 40 mg = 1 tab, PO, Before Breakfast Active 07/07/2017 [facility] isosorbide mononitrate 120 mg oral table t, extended release 120 mg = 1 tab, PO, Daily, (Hold for SBP < 130 or HR < 60) Active 07/07/2017 [facility] sevelamer carbonate 800 MG Oral Tablet [Renvela] 800 mg = 1 tab, PO, TID-Before Meals Active 07/07/2017 [facility] lisinopril 20 mg oral tablet 2 0 mg = 1 tab, PO, Daily, (Hold for SBP < 130 or HR < 60) Active 07/07/2017 [facility] cefepime Notes: (Same As: Esteban monroy) MEDICATION WASTE Product Size: 1000 mg Product Wasted: ___ mg Inactive 07/07/2017 [facility] Vancomycin 2001 mg: infuse ov er 2.5 hours For adult patients only: Round to nearest 250 mg per Medical Staff approval MEDICATION WASTE Product Size: 1000 mg Product Wasted: ___ mg Inactive 07/07/2017 [facility] Levaquin Notes: (Same as:Levaq uin) Inactive 07/07/2017 [facility] GI cocktail Notes: G.I. [place] = antacid with simethicone 22.5 mL - lidocaine viscous 7.5 mL Inactive 07/07/2017 [facility] Saline Flush 0.9% Notes: Same as: BD Posiflush Sterile No Longer Active 07/07/2017 [facility] Lisinopril Notes: (Same as: Pr inivil, Zestril) No Longer Active 12/30/2016 [facility] Isosorbide Notes: (Same as:Imd ur) "Do Not Crush" Take on empty stomach/ full glass of water. Do not crush No Longer Active 12/30/2016 [facility] Norvasc Notes: (Same as: Norva sc) No Longer Active 12/30/2016 [facility] Hydralazine Hydrochloride 50 MG Oral Tablet 50 mg = 1 tab, PO, Q8H, hold for sbp < 130 or HR < 60, 0 Refill(s) No Longer Active 12/30/2016 [facility] Lactulose 667 MG/ML Oral Solution 20 gm = 30 mL, PO, Bedtime Active 12/30/2016 [facility] lisinopril 20 mg oral tablet 2 0 mg = 1 tab, PO, Daily, hold for sbp < 130 or HR < 60, # 30 tab, 0 Refill(s) Active 12/30/2016 [facility] glyBURIDE 5 mg oral tablet 5 m g = 1 tab, PO, BID-Meals, # 60 tab, 1 Refill(s) No Longe r Active 12/30/2016 [facility] Senna S oral tablet 2 tab, PO, BID Active 12/30/2016 [facility] NovoLog sliding scale, SUB-Q, Before Meals & Bedtime, 0 Refill(s) No Longer Active 12/30/2016 [facility] tramadol hydrochloride 50 MG Oral Tablet 50 mg = 1 tab, PO, TID, PRN Pain Score 4-6 No Longer Active 12/30/2016 [facility] pregabalin 25 MG Oral Capsule [Lyrica] 25 mg = 1 cap, PO, Daily, # 30 cap, 0 Refill(s) Active 12/30/2016 [facility] Albuterol 0.833 MG/ML / Ipratropium Brom alejandro 0.167 MG/ML Inhalant Solution [DuoNeb] 3 ml, INHALATION, QID, PRN as needed for shortness of breath or wheezing, # 30 ea, 0 Refill(s) Active 12/30/2016 [facility] Clonidine Hydrochloride 0.1 MG Oral Tablet 0.1 mg = 1 tab, PO, Q8H, hold for sbp < 130 or HR < 60, 0 Refill(s) No Longer Active 12/30/2016 [facility] Aquaphor 1 appl, TOP, Daily, 0 Refill(s) Active 12/30/2016 [facility] diphenhydrAMINE 25 mg oral tablet 25 mg = 1 tab, PO, Q6H, PRN as needed for itching, 0 Refill(s) No Longer Active 12/30/2016 [facility] carvedilol Notes: Give with fo od. (Same As: Coreg) No Longer Active 12/30/2016 [facility] Hydralazine Hydrochloride 25 MG Oral Tablet Notes: (Same as: Apresoline) May interfere w/enteral feedings Take With Food. No Longer Active 12/29/2016 [facility] Clonidine Hydrochloride 0.1 MG Oral Tablet Notes: (Same As: Catapres) No Longer Active 12/29/2016 [facility] Albuterol 0.833 MG/ML / Ipratropium Brom alejandro 0.167 MG/ML Inhalant Solution [DuoNeb] Notes: (Same as: Duoneb) No Longer Active 12/29/2016 [facility] D5NS 1,000 mL 1,000 mL, Rate: 20 ml/hr, Infuse over: 50 hr, Route: IV, Dosing Weight 59.091 kg, Total Volume: 1,000, Start date: 12/29/16 14:12:00 CDT, Duration: 30 day, Stop date: 01/28/17 14:11:00 CDT No Longer Active 12/29/2016 [facility] Ondansetron Notes: (Same as: Jb silveira) MEDICATION WASTE Product Size: 4 mg Product Wasted: ___ mg Inactive 12/29/2016 [facility] Dextrose 50% Syringe 25 gm, 50 mL, Route: IVP, Drug Form: INJ, Dosing Weight 59.091, kg, ONCE, STAT, Start date: 12/29/16 12:32:00 CDT, Stop date: 12/29/16 12:32:00 CDT Inactive 12/29/2016 [facility] Amlodipine 5 MG Oral Tablet [Norvasc] 5 mg = 1 tab, PO, Daily, # 30 tab, 1 Refill(s) Active 08/19/2016 [facility] cefdinir 300 MG Oral Capsule [Omnicef] 300 mg = 1 cap, PO, Daily, X 5 day, # 5 cap, 0 Refill(s) Active 08/19/2016 [facility] Metronidazole 500 MG Oral Tablet [Flagyl] 500 mg = 1 tab, PO, Q8H, X 5 day, # 15 tab, 0 Refill(s) Active 08/19/2016 [facility] lisinopril 10 mg oral tablet 1 0 mg = 1 tab, PO, Daily, # 90 tab, 1 Refill(s) Active 08/19/2016 [facility] Levemir Notes: Same as Levemir Do not hold insulin without contacting prescriber WASTE: F/P - Black; E - Municipal Trash Bin "single patient use only" No Longer Active 08/18/2016 [facility] Levemir Notes: Same as Levemir Do not hold insulin without contacting prescriber WASTE: F/P - Black; E - Municipal Trash Bin "single patient use only" Inactive 08/18/2016 [facility] Insulin, Aspart, Human Notes: Roll in palms of hands gently; Do not shake vigorously. (Same as: NovoLOG) "single patient use only" WASTE: F/P - Black; E - Municipal Trash Bin Stable for 28 days at room temperature. Expires in days from Date No Longer Active 08/17/2016 [facility] cefdinir 300 MG Oral Capsule [Omnicef] Notes: (Same As: Omnicef) No Longer Active 08/17/2016 [facility] Flagyl Notes: (Same as: Flagyl ) Take with food/ avoid alcohol No Longer Active 08/17/2016 [facility] Levemir Notes: Same as Levemir Do not hold insulin without contacting prescriber WASTE: F/P - Black; E - Municipal Trash Bin "single patient use only" Inactive 08/17/2016 [facility] D5W 1,000 mL 1,000 mL, Rate: 5 0 ml/hr, Infuse over: 20 hr, Route: IV, Dosing Weight 52.739 kg, Total Volume: 1,000, Start date: 08/16/16 22:16:00 CDT, Duration: 30 day, Stop date: 09/15/16 22:15:00 CDT No Longer Active 08/17/2016 [facility] Levemir Notes: Same as Levemir Do not hold insulin without contacting prescriber WASTE: F/P - Black; E - Municipal Trash Bin "single patient use only" No Longer Active 08/16/2016 [facility] Insulin, Aspart, Human Notes: Roll in palms of hands gently; Do not shake vigorously. (Same as: NovoLOG) "single patient use only" WASTE: F/P - Black; E - Municipal Trash Bin Stable for 28 days at room temperature. Expires in days from Date Inactive 08/16/2016 [facility] Dextrose 50% Syringe 25 gm, 50 mL, Route: IVP, Drug Form: INJ, Dosing Weight 52.739, kg, PRN, PRN Blood Glucose Results, Start date: 08/16/16 12:20:00 CDT, Duration: 30 day, Stop date: 09/15/16 12:19:00 CDT No Longer Active 08/16/2016 [facility] Glucagon 1 mg, Route: IM, Drug form: PDR/INJ, PRN, Dosing Weight 52.739, kg, PRN Blood Glucose Results, Start date: 08/16/16 12:20:00 CDT, Duration: 30 day, Stop date: 09/15/16 12:19:00 CDT No Longer Active 08/16/2016 [facility] potassium chloride Notes: Infu se at a rate of 10 mEq/hr. (Same as: KCL) Inactive 08/16/2016 [facility] Levemir Notes: Same as Levemir Do not hold insulin without contacting prescriber WASTE: F/P - Black; E - Municipal Trash Bin "single patient use only" Inactive 08/16/2016 [facility] Vancomycin 2001 mg: infuse ov er 2.5 hours MEDICATION WASTE Product Size: 1000 mg Product Wasted: ___ mg Inactive 08/15/2016 [facility] Insulin, Aspart, Human Notes: Roll in palms of hands gently; Do not shake vigorously. (Same as: NovoLOG) "single patient use only" WASTE: F/P - Black; E - Municipal Trash Bin Stable for 28 days at room temperature. Expires in days from Date No Longer Active 08/14/2016 [facility] Glucagon 1 mg, Route: IM, Drug form: PDR/INJ, PRN, Dosing Weight 52.739, kg, PRN Blood Glucose Results, Start date: 08/14/16 16:07:00 CDT, Duration: 30 day, Stop date: 09/13/16 16:06:00 CDT No Longer Active 08/14/2016 [facility] Dextrose 50% Syringe 12.5 gm, 25 mL, Route: IVP, Drug Form: INJ, Dosing Weight 52.739, kg, PRN, PRN Blood Glucose Results, Start date: 08/14/16 16:07:00 CDT, Duration: 30 day, Stop date: 09/13/16 16:06:00 CDT No Longer Active 08/14/2016 [facility] Vancomycin 2001 mg: infuse ov er 2.5 hours MEDICATION WASTE Product Size: 1000 mg Product Wasted: ___ mg Inactive 08/13/2016 [facility] Morphine Notes: (Same as:MORPh ine Sulfate) No Longer Active 08/13/2016 [facility] Isosorbide Notes: (Same as:Imd ur) "Do Not Crush" Take on empty stomach/ full glass of water. Do not crush No Longer Active 08/13/2016 [facility] Lisinopril 10 mg, Route: PO, D rug form: TAB, Daily, Dosing Weight 59.545, kg, Start date: 08/13/16 9:00:00 CDT, Duration: 30 day, Stop date: 09/11/16 9:00:00 CDT No Longer Active 08/13/2016 [facility] Hydralazine Hydrochloride 100 MG Oral Tablet 25 mg, Route: PO, Drug form: TAB, Q12H, Dosing Weight 57.045, kg, Start date: 08/12/16 21:00:00 CDT, Duration: 30 day, Stop date: 09/11/16 9:00:00 CDT No Longer Active 08/13/2016 [facility] Clonidine Hydrochloride 0.1 MG Oral Tablet Notes: (Same As: Catapres) No Longer Active 08/12/2016 [facility] Calcium Gluconate Notes: WASTE : F/P - Sink; E - Municipal Trash Bin Inactive 08/12/2016 [facility] albumin human 25% intravenous solution Notes: LOT#: Mfg: WASTE: F/P - Red; E -Red (Same as: Albuminar) "blood product derivative" Inactive 08/12/2016 [facility] Oxycodone Hydrochloride 5 MG Oral Tablet Notes: (Same as: Roxicodone) No Longer Active 08/12/2016 [facility] tramadol 50 mg oral tablet Not es: Not to exceed 400mg/day. (Same As: Ultram) N o Longer Active 08/12/2016 [facility] pantoprazole Notes: Tablet koe uld not be chewed or crushed. (Same as: Protonix) N o Longer Active 08/11/2016 [facility] vancomycin + sodium chloride 0.9% INJ 250 mL 2001 mg: infuse over 2.5 hours MEDICATION WASTE Product Size: 1000 mg Product Wasted: ___ mg Inactive 08/11/2016 [facility] cefepime Notes: (Same As: Esteban monroy) MEDICATION WASTE Product Size: 1000 mg Product Wasted: ___ mg No Longer Active 08/11/2016 [facility] Flagyl Notes: (Same as: Flagyl ) Avoid alcohol. No Longer Active 08/11/2016 [facility] Vancomycin 2001 mg: infuse ov er 2.5 hours MEDICATION WASTE Product Size: 1000 mg Product Wasted: ___ mg Inactive 08/11/2016 [facility] Zinacef + sodium chloride 0.9% INJ 100 mL Notes: (Same As: Kefurox, Zinacef) MEDICATION WASTE Product Size: 1500 mg Product Wasted: _0__ mg Inactive 08/11/2016 [facility] Seroquel Notes: (Same as: SERO quel) No Longer Active 08/11/2016 [facility] Saline Flush 0.9% Notes: (Same as: BD Posiflush) No Longer Active 08/11/2016 [facility] Calcium Chloride Notes: WASTE: F/P - Sink; E - Municipal Trash Bin Inactive 08/11/2016 [facility] Dexmedetomidine 24 hours No Longer Active 08/10/2016 [facility] pantoprazole Notes: For IV pus h reconstitute with 10 ml 0.9% sodium chloride and push over 2 minutes. (Same as: Protonix) No Longer Active 08/10/2016 [facility] Haldol Notes: (Same as: Haldol) No Longer Active 08/10/2016 [facility] Docusate Sodium 100 MG Oral Capsule Notes: (Same as: Colace) (Do Not Crush) No Longer Active 08/10/2016 [facility] Hydromorphone 2 mg, 2 mL, Rout e: IVP, Drug form: INJ, ONCE, Dosing Weight 59.574, kg, Priority: STAT, Start date: 08/10/16 16:57:00 CDT, Stop date: 08/10/16 16:57:00 CDT Inactive 08/10/2016 [facility] [facility] 45 mmol, R oute: IVPB, PRN, Dosing Weight 59.574, kg, PRN Abnormal Lab Result, Start date: 08/10/16 16:55:00 CDT, Duration: 30 day, Stop date: 09/09/16 16:54:00 CDT, FOR ICU USE ONLY Inactive 08/10/2016 [facility] sodium phosphate 45 mmol, Rout e: IVPB, PRN, Dosing Weight 59.574, kg, PRN Abnormal Lab Result, Start date: 08/10/16 16:55:00 CDT, Duration: 30 day, Stop date: 09/09/16 16:54:00 CDT, FOR ICU USE ONLY Inactive 08/10/2016 [facility] Calcium Carbonate 500 MG Chewable Tablet 500 mg, Route: PO, PRN, Dosing Weight 59.574, kg, PRN Abnormal Lab Result, FOR ICU USE ONLY, Start date: 08/10/16 16:55:00 CDT, Duration: 30 day, Stop date: 09/09/16 16:54:00 CDT Inactive 08/10/2016 [facility] Calcium Gluconate 1 gm, Route: IVPB, PRN, Dosing Weight 59.574, kg, PRN Abnormal Lab Result, Start date: 08/10/16 16:55:00 CDT, Duration: 30 day, Stop date: 09/09/16 16:54:00 CDT, FOR ICU USE ONLY Inactive 08/10/2016 [facility] Magnesium Oxide 800 mg, Route: PO, PRN, Dosing Weight 59.574, kg, PRN Abnormal Lab Result, FOR ICU USE ONLY, Start date: 08/10/16 16:55:00 CDT, Duration: 30 day, Stop date: 09/09/16 16:54:00 CDT Inactive 08/10/2016 [facility] Magnesium Sulfate 2 gm, Route: IVPB, PRN, Dosing Weight 59.574, kg, PRN Abnormal Lab Result, Start date: 08/10/16 16:55:00 CDT, Duration: 30 day, Stop date: 09/09/16 16:54:00 CDT, FOR ICU USE ONLY Inactive 08/10/2016 [facility] potassium phosphate-sodium phosphate 250 mg-280 mg-160 mg oral powder for reconstitution 2 pkt, Route: PO, Dosing Weight 59.574, kg, PRN, PRN Abnormal Lab Result, FOR ICU USE ONLY, Start date: 08/10/16 16:55:00 CDT, Duration: 30 day, Stop date: 09/09/16 16:54:00 CDT Inactive 08/10/2016 [facility] potassium chloride 20 mEq, Rou te: [place], Drug form: LIQ, PRN, Dosing Weight 59.574, kg, PRN Abnormal Lab Result, Start date: 08/10/16 16:55:00 CDT, Duration: 30 day, Stop date: 09/09/16 16:54:00 CDT, FOR ICU USE ONLY Inactive 08/10/2016 [facility] Saline Flush 0.9% Notes: (Same as: BD Posiflush) Inactive 08/10/2016 [facility] Sodium Chloride 0.0769 MEQ/ML Injectable Solution 1,000 mL, Rate: 75 ml/hr, Infuse over: 13.3 hr, Route: IV, Dosing Weight 59.574 kg, Total Volume: 1,000, Start date: 08/10/16 16:32:00 CDT, Duration: 1 doses or times, Stop date: 08/11/16 5:49:00 CDT No Longer Active 08/10/2016 [facility] Saline Flush 0.9% Notes: (Same as: BD Posiflush) No Longer Active 08/10/2016 [facility] Dulcolax Laxative Notes: (Same As: Dulcolax, Correctol) (Do Not Crush) "Do Not Crush" No Longer Active 08/10/2016 [facility] Ondansetron Notes: (Same as: Jb silveira) MEDICATION WASTE Product Size: 4 mg Product Wasted: _0__ mg No Longer Active 08/10/2016 [facility] Temazepam Notes: (Same As: Res toril) No Longer Active 08/10/2016 [facility] morphine Sulfate (ANES) Route: IV, Drug form: INJ, ONCE, Stop date: 08/10/16 16:23:00 CDT Inactive 08/10/2016 [facility] phenylephrine (ANES) Route: IV , Drug form: INJ, ONCE, Stop date: 08/10/16 16:11:00 CDT Inactive 08/10/2016 [facility] ePHEDrine (ANES) Route: IV, Dr ug form: INJ, ONCE, Stop date: 08/10/16 16:06:00 CDT Inactive 08/10/2016 [facility] vecuronium (ANES) Route: IV, D rug form: INJ, ONCE, Stop date: 08/10/16 15:31:00 CDT Inactive 08/10/2016 [facility] midazolam (ANES) Route: IV, Dr ug form: SOLN, ONCE, Stop date: 08/10/16 15:26:00 CDT Inactive 08/10/2016 [facility] fentaNYL (ANES) Route: IV, Mc g form: INJ, ONCE, Stop date: 08/10/16 15:26:00 CDT Inactive 08/10/2016 [facility] propofol (ANES) Route: IV, Mc g form: INJ, ONCE, Stop date: 08/10/16 15:26:00 CDT Inactive 08/10/2016 [facility] sodium chloride 0.9% 500 ml INJ (ANES) Route: IV, Total Volume: 500, Start date: 08/10/16 15:05:00 CDT, Stop date: 08/10/16 16:05:00 CDT Inactive 08/10/2016 [facility] sodium chloride 0.9% 100 ml INJ (ANES) + cefuroxime (ANES) (ANES) Route: IV, Drug form: INJ, Start date: 0 08/10/16 14:30:00 CDT, Stop date: 08/10/16 15:30:00 CDT Inactive 08/10/2016 [facility] Isolyte S (PH 7.4) 1000 mL (ANES) Route: IV, Total Volume: 1,000, Start date: 08/10/16 14:03:00 CDT, Stop date: 08/10/16 15:03:00 CDT Inactive 08/10/2016 [facility] vancomycin (ANES) (ANES) Route : IV, Drug form: INJ, Start date: 08/10/16 14:00:00 CDT, Stop date: 08/10/16 15:00:00 CDT Inactive 08/10/2016 [facility] Cefazolin Notes: Same as: Ancef No Longer Active 08/10/2016 [facility] Hydralazine Hydrochloride 100 MG Oral Tablet Notes: (Same as: Apresoline) May interfere w/enteral feedings - Take With Food No Longer Active 08/10/2016 [facility] Restoril Notes: (Same As: Rest oril) No Longer Active 08/10/2016 [facility] tramadol hydrochloride 50 MG Oral Tablet Notes: Not to exceed 400mg/day. (Same As: Ultram) No Longer Active 08/09/2016 [facility] Diphenhydramine Notes: (Same a s: Benadryl) No Longer Active 08/09/2016 [facility] dextromethorphan-guaiFENesin 10 mg-100 m g/5 mL oral liquid Notes: (dextromethorphan-guaifenesin 10- 100mg/5ml 10 ml oral SOLN ud) (Same as: Robitussin DM) No Longer Active 08/09/2016 [facility] Ondansetron Notes: (Same as: Jb silveira) MEDICATION WASTE Product Size: 4 mg Product Wasted: ___ mg No Longer Active 08/09/2016 [facility] Bisacodyl Notes: (Same As: Dul colax, Bisco-Lax) No Longer Active 08/09/2016 [facility] Al hydroxide/Mg hydroxide/simethicone 20 0 mg-200 mg-20 mg/5 mL oral suspension Notes: (aluminum hydroxide-magnesium hyd -simethicone [phone]/5ml 30 ml ud MEEK) No Longer Active 08/09/2016 [facility] Simethicone 80 mg, Route: PO, Drug form: TAB, Q6H, Dosing Weight 57.045, kg, PRN Gas, Start date: 08/09/16 12:32:00 CDT, Duration: 2 doses or times, Stop date: Limited # of times Inactive 08/09/2016 [facility] Temazepam Notes: (Same As: Res toril) No Longer Active 08/09/2016 [facility] Famotidine 20 MG Oral Tablet [Pepcid] Notes: (Same as: Pepcid) No Longer Active 08/09/2016 [facility] Amlodipine Notes: (Same as: No rvasc) No Longer Active 08/09/2016 [facility] Lisinopril Notes: (Same as: Pr inivil, Zestril) No Longer Active 08/09/2016 [facility] Isosorbide Notes: (Same as:Imd ur) "Do Not Crush" Take on empty stomach/ full glass of water. Do not crush No Longer Active 08/09/2016 [facility] Glyburide Notes: Non-Formulary (Same as: Micronase, Diabeta) Take with meals. No Longer Active 08/09/2016 [facility] carvedilol Notes: Give with fo od. (Same As: Coreg) No Longer Active 08/09/2016 [facility] Clonidine Hydrochloride 0.1 MG Oral Tablet Notes: (Same As: Catapres) No Longer Active 08/08/2016 [facility] Albuterol 0.833 MG/ML / Ipratropium Brom alejandro 0.167 MG/ML Inhalant Solution [DuoNeb] Notes: (Same as: Duoneb) No Longer Active 08/08/2016 [facility] Hydralazine Hydrochloride 25 MG Oral Tablet Notes: (Same as: Apresoline) May interfere w/enteral feedings Take With Food. No Longer Active 08/08/2016 [facility] Nitroglycerin 0.4 MG Sublingual Tablet Notes: (Same as:Nitroquick, Nitrostat) "Do Not Crush" Sublingual tablet No Longer Active 08/08/2016 [facility] Lovenox Notes: (Same as: Loven ox) No Longer Active 08/08/2016 [facility] emollients, topical ointment N otes: (mineral oil,petrolatum,lanolin,triethanolamine 180ml LOT) (Same as:Lubriderm Lotion) No Longer Active 08/08/2016 [facility] Labetalol Notes: (Same as: Purvi meyer Trandate) Push over 2 minutes Give bolus over 2-3 minutes. No Longer Active 08/08/2016 [facility] Insulin, Aspart, Human Notes: Roll in palms of hands gently; Do not shake vigorously. (Same as: NovoLOG) "single patient use only" WASTE: F/P - Black; E - Municipal Trash Bin Stable for 28 days at room temperature. Expires in days from Date No Longer Active 08/08/2016 [facility] Dextrose 50% Syringe 25 gm, 50 mL, Route: IVP, Drug Form: INJ, Dosing Weight 61.364, kg, PRN, PRN Blood Glucose Results, Start date: 08/08/16 8:22:00 CDT, Duration: 30 day, Stop date: 09/07/16 8:21:00 CDT No Longer Active 08/08/2016 [facility] Glucagon 1 mg, Route: IM, Drug form: PDR/INJ, PRN, Dosing Weight 61.364, kg, PRN Blood Glucose Results, Start date: 08/08/16 8:22:00 CDT, Duration: 30 day, Stop date: 09/07/16 8:21:00 CDT No Longer Active 08/08/2016 [facility] Sodium Chloride 0.9% IV 250 mL , Route: IVPB, Start date: 08/08/16 6:57:00 CDT, Duration: 30 day, Stop date: 09/07/16 6:56:00 CDT, PRN Line Flush No Longer Active 08/08/2016 [facility] BD Normal Saline Flush Notes: (Same as: BD Posiflush) No Longer Active 08/08/2016 [facility] Saline Flush 0.9% 10 mL, Route : IVP, Drug Form: INJ, Dosing Weight 61.364, kg, PRN, PRN Line Flush, Start date: 08/08/16 6:47:00 CDT, Duration: 30 day, Stop date: 09/07/16 6:46:00 CDT Inactive 08/08/2016 [facility] Albuterol 0.833 MG/ML / Ipratropium Brom alejandro 0.167 MG/ML Inhalant Solution [DuoNeb] 3 mL, NEB, QID, 0 Refill(s) Active 07/25/2016 [facility] Albuterol 0.833 MG/ML / Ipratropium Brom alejandro 0.167 MG/ML Inhalant Solution [DuoNeb] Notes: (Same as: Duoneb) Inactive 07/25/2016 [facility] Lisinopril Notes: (Same as: Pr inivil, Zestril) Inactive 07/25/2016 [facility] Hydralazine Hydrochloride 25 MG Oral Tablet Notes: (Same as: Apresoline) May interfere w/enteral feedings Take With Food. Inactive 07/25/2016 [facility] Glyburide Notes: Non-Formulary (Same as: Micronase, Diabeta) Take with meals. Inactive 07/25/2016 [facility] Famotidine 20 MG Oral Tablet [Pepcid] Notes: (Same as: Pepcid) Inactive 07/25/2016 [facility] Clonidine Hydrochloride 0.1 MG Oral Tablet Notes: (Same As: Catapres) Inactive 07/25/2016 [facility] Amlodipine Notes: (Same as: No rvasc) Inactive 07/25/2016 [facility] carvedilol Notes: Give with fo od. (Same As: Coreg) Inactive 07/25/2016 [facility] Isosorbide Notes: (Same as:Imd ur) "Do Not Crush" Take on empty stomach/ full glass of water. Do not crush Inactive 07/25/2016 [facility] Albuterol 0.833 MG/ML / Ipratropium Brom alejandro 0.167 MG/ML Inhalant Solution [DuoNeb] Notes: (Same as: Duoneb) Inactive 07/25/2016 [facility] Streptococcus pneumoniae serotype 1 caps ular antigen diphtheria [id number] protein conjugate vaccine / Streptococcus pneumoniae serotype 14 capsular antigen diphtheria [id number] protein conjugate vaccine / Streptococcus pneumoniae serotype 18C capsular antigen d Notes: Lightly roll vial (DO NOT SHAKE) before administration. (Same as: Prevnar 13) Inactive 07/25/2016 [facility] Nitroglycerin 0.4 MG Sublingual Tablet Notes: (Same as:Nitroquick, Nitrostat) "Do Not Crush" Sublingual tablet Inactive 07/25/2016 [facility] Insulin, Aspart, Human Notes: Roll in palms of hands gently; Do not shake vigorously. (Same as: NovoLOG) "single patient use only" WASTE: F/P - Black; E - Municipal Trash Bin Stable for 28 days at room temperature. Expires in days from Date Inactive 07/25/2016 [facility] Dextrose 50% Syringe 12.5 gm, 25 mL, Route: IVP, Drug Form: INJ, Dosing Weight 63.636, kg, PRN, PRN Blood Glucose Results, Start date: 07/25/16 2:38:00 CDT, Duration: 30 day, Stop date: 08/24/16 2:37:00 CDT Inactive 07/25/2016 [facility] Glucagon 1 mg, Route: IM, Drug form: PDR/INJ, PRN, Dosing Weight 63.636, kg, PRN Blood Glucose Results, Start date: 07/25/16 2:38:00 CDT, Duration: 30 day, Stop date: 08/24/16 2:37:00 CDT Inactive 07/25/2016 [facility] Acetaminophen Notes: Do not ex ceed 4 gm/day. (Same as: Tylenol) Inactive 07/25/2016 [facility] Acetaminophen 325 MG / Hydrocodone Rg trate 5 MG Oral Tablet Notes: (Same as: [place] 325/5) Do not ex ceed 4gm/day of acetaminophen. Inactive 07/25/2016 [facility] Morphine Notes: (Same as:MORPh ine Sulfate) Inactive 07/25/2016 [facility] Ondansetron Notes: (Same as: Jb silveira) MEDICATION WASTE Product Size: 4 mg Product Wasted: ___ mg Inactive 07/25/2016 [facility] Hydralazine Notes: (Same as: A presoline) Push over 5 minutes Inactive 07/25/2016 [facility] Saline Flush 0.9% Notes: Same as: BD Posiflush Sterile No Longer Active 07/25/2016 [facility] albumin human 25% intravenous solution Notes: LOT#: Mfg: WASTE: F/P - Red; E -Red (Same as: Albuminar) "blood product derivative" Inactive 11/06/2015 [facility] Docusate Sodium 100 MG Oral Capsule [Colace] Notes: (Same as: Colace) (Do Not Crush) No Longer Active 11/05/2015 [facility] Procrit Notes: MEDICATION WASTE Product Size: 86875 unit Product Wasted: ___ unit No Longer Active 11/04/2015 [facility] Glyburide Notes: (Same as: Jefry spicer Diabeta) Take with meals. No Longer Active 11/04/2015 [facility] heparin Notes: porcine heparin No Longer Active 11/03/2015 [facility] Melatonin 3 MG Extended Release Tablet Notes: (Same as: Melatonin) No Longer Active 11/03/2015 [facility] Insulin, Aspart, Human Notes: Roll in palms of hands gently; Do not shake vigorously. (Same as: NovoLOG) "single patient use only" WASTE: F/P - Black; E - Municipal Trash Bin Stable for 28 days at room temperature. Expires in days from Date No Longer Active 11/02/2015 [facility] Glucagon 1 mg, Route: IM, Drug form: PDR/INJ, PRN, Dosing Weight 79.6, kg, PRN Blood Glucose Results, Start date: 11/02/15 9:55:00 CDT, Duration: 30 day, Stop date: 12/02/15 9:54:00 CDT No Longer Active 11/02/2015 [facility] Dextrose 50% Syringe 12.5 gm, 25 mL, Route: IVP, Drug Form: INJ, Dosing Weight 79.6, kg, PRN, PRN Blood Glucose Results, Start date: 11/02/15 9:55:00 CDT, Duration: 30 day, Stop date: 12/02/15 9:54:00 CDT No Longer Active 11/02/2015 [facility] Lisinopril Notes: (Same as: Pr inivil, Zestril) No Longer Active 11/02/2015 [facility] Isosorbide Notes: (Same as:Imd ur) "Do Not Crush" Take on empty stomach/ full glass of water. Do not crush No Longer Active 11/02/2015 [facility] Glyburide Notes: (Same as: Jefry ronase, Diabeta) Take with meals. Inactive 11/02/2015 [facility] Famotidine 20 MG Oral Tablet [Pepcid] Notes: (Same as: Pepcid) No Longer Active 11/02/2015 [facility] Clonidine Hydrochloride 0.1 MG Oral Tablet Notes: (Same As: Catapres) No Longer Active 11/02/2015 [facility] carvedilol Notes: Give with fo od. (Same As: Coreg) No Longer Active 11/02/2015 [facility] Amlodipine Notes: (Same as: No rvasc) No Longer Active 11/02/2015 [facility] Hydralazine Hydrochloride 50 MG Oral Tablet Notes: (Same as: Apresoline) May interfere w/enteral feedings Take With Food No Longer Active 11/02/2015 [facility] Sodium Chloride 0.9% IV 25 mL, Route: IVP, Start date: 11/02/15 2:18:00 CDT, Duration: 30 day, Stop date: 12/02/15 2:17:00 CDT, PRN Line Flush No Longer Active 11/02/2015 [facility] BD Normal Saline Flush Notes: (Same as: BD Posiflush) No Longer Active 11/02/2015 [facility] Dilaudid Notes: (Same as: Dila udid) No Longer Active 11/02/2015 [facility] Nitroglycerin 0.4 MG Sublingual Tablet Notes: (Same as:Nitroquick, Nitrostat) "Do Not Crush" Sublingual tablet No Longer Active 11/02/2015 [facility] Hydromorphone Hydrochloride 4 MG Oral Tablet [Dilaudid ] 4 mg = 1 tab, PO, Q4H, PRN Pain Score 4-6, 0 Refill(s) No Longer Active 11/02/2015 [facility] Kayexalate Notes: (sodium poly styrene sulfonate 15 gm/60 ml MEEK) Shake well before use. (Same as: Kayexalate, SPS) Inactive 11/02/2015 [facility] Ondansetron Notes: (Same as: Jb silveira) MEDICATION WASTE Product Size: 4 mg Product Wasted: ___ mg No Longer Active 11/02/2015 [facility] Docusate Notes: (Same as: Cola ce) (Do Not Crush) No Longer Active 11/02/2015 [facility] Morphine Notes: (Same as:MORPh ine Sulfate) No Longer Active 11/02/2015 [facility] Kayexalate Notes: (sodium poly styrene sulfonate 15 gm/60 ml MEEK) Shake well before use. (Same as: Kayexalate, SPS) Inactive 10/27/2015 [facility] Kayexalate Notes: (sodium poly styrene sulfonate 15 gm/60 ml MEEK) Shake well before use. (Same as: Kayexalate, SPS) Inactive 10/27/2015 [facility] heparin Notes: porcine heparin No Longer Active 10/26/2015 [facility] Coreg Notes: Give with food. ( Same As: Coreg) No Longer Active 10/26/2015 [facility] cloNIDine 0.1 mg oral tablet N otes: (Same As: Catapres) No Longer Active 10/26/2015 [facility] albumin human Notes: Lot #: __ Mfg: (Same as: Plasbumin-25) "blood product derivative" WASTE: F/P - Red; E -Red MEDICATION WASTE Product Size: 25 gm Product Wasted: ___ gm No Longer Active 10/25/2015 [facility] Sodium Chloride 0.9% IV 1,000 mL, Route: IV, Start date: 10/25/15 14:23:00 CDT, Duration: 30 day, Stop date: 11/24/15 14:22:00 CDT, PRN Dialysis No Longer Active 10/25/2015 [facility] Hydralazine Hydrochloride 50 MG Oral Tablet 50 mg = 1 tab, PO, Q6H, # 120 tab, 0 Refill(s) Active 10/25/2015 [facility] isosorbide mononitrate 120 mg oral table t, extended release 120 mg = 1 tab, PO, QAM, # 30 tab, 2 Refill(s) Active 10/25/2015 [facility] Hydralazine Hydrochloride 25 MG Oral Tablet 50 mg = 2 tab, PO, TID, # 90 tab, 2 Refill(s) Active 10/25/2015 [facility] amLODIPine 10 mg oral tablet 1 0 mg = 1 tab, PO, Daily, # 30 tab, 2 Refill(s) Active 10/25/2015 [facility] Nitroglycerin 0.4 MG Sublingual Tablet 0.4 mg = 1 tab, SL, Q5Min, PRN Chest Pain, # 100 tab, 0 Refill(s) Active 10/25/2015 [facility] glyBURIDE 5 mg oral tablet 5 m g = 1 tab, PO, Daily, # 30 tab, 0 Refill(s) Active 10/25/2015 [facility] Clonidine Hydrochloride 0.1 MG Oral Tablet 0.1 mg = 1 tab, PO, TID, # 90 tab, 0 Refill(s) Active 10/25/2015 [facility] lisinopril 20 mg oral tablet 4 0 mg = 2 tab, PO, Daily, # 60 tab, 0 Refill(s) Active 10/25/2015 [facility] Famotidine 20 MG Oral Tablet [Pepcid] 20 mg = 1 tab, PO, Daily, # 30 tab, 0 Refill(s) Active 10/25/2015 [facility] carvedilol 3.125 mg oral tablet 3.125 mg = 1 tab, PO, Q12H, # 60 tab, 0 Refill(s) Active 10/25/2015 [facility] Hydralazine Notes: (Same as: A presoline) Push over 5 minutes No Longer Active 10/24/2015 [facility] Clonidine Hydrochloride 0.2 MG Oral Tablet Notes: (Same As: Catapres) Inactive 10/24/2015 [facility] Norvasc Notes: (Same as: Norva sc) No Longer Active 10/23/2015 [facility] Clonidine Notes: (Same As: Cat apres) No Longer Active 10/23/2015 [facility] Hydralazine Notes: (Same as: A presoline) Push over 5 minutes Inactive 10/23/2015 [facility] Clonidine Notes: (Same As: Cat apres) No Longer Active 10/23/2015 [facility] Clonidine Notes: (Same As: Cat apres) No Longer Active 10/23/2015 [facility] Hydralazine Notes: (Same as: A presoline) May interfere w/enteral feedings Take With Food No Longer Active 10/22/2015 [facility] Glyburide Notes: (Same as: Jefry ronase, Diabeta) Take with meals. No Longer Active 10/22/2015 [facility] Lisinopril Notes: (Same as: Pr inivil, Zestril) Inactive 10/22/2015 [facility] Morphine Notes: (Same as:MORPh ine Sulfate) No Longer Active 10/22/2015 [facility] Lisinopril Notes: (Same as: Pr inivil, Zestril) No Longer Active 10/22/2015 [facility] Acetaminophen 325 MG / Hydrocodone Rg trate 5 MG Oral Tablet [[place] 5/325] Notes: (Same as: [place] 325/5) Do not ex ceed 4gm/day of acetaminophen. No Longer Activ e 10/22/2015 [facility] heparin Notes: porcine heparin No Longer Active 10/21/2015 [facility] Imdur Notes: (Same as:Imdur) " Do Not Crush" Take on empty stomach/ full glass of water. Do not crush No Longer Active 10/21/2015 [facility] Saline Flush 0.9% Notes: Same as: BD Posiflush Sterile No Longer Active 10/21/2015 [facility] Albuterol 0.83 MG/ML Inhalant Solution Notes: SEE RT DOCUMENTATION (Same as: Proventil) No Longer Active 10/21/2015 [facility] Insulin, Aspart, Human Notes: Roll in palms of hands gently; Do not shake vigorously. (Same as: NovoLOG) "single patient use only" WASTE: F/P - Black; E - Municipal Trash Bin Stable for 28 days at room temperature. Expires in days from Date No Longer Active 10/21/2015 [facility] Dextrose 50% Syringe 25 gm, 50 mL, Route: IVP, Drug Form: INJ, Dosing Weight 81.818, kg, PRN, PRN Blood Glucose Results, Start date: 10/20/15 22:02:00 CDT, Duration: 30 day, Stop date: 11/19/15 22:01:00 CDT No Longer Active 10/21/2015 [facility] Glucagon 1 mg, Route: IM, Drug form: PDR/INJ, PRN, Dosing Weight 81.818, kg, PRN Blood Glucose Results, Start date: 10/20/15 22:02:00 CDT, Duration: 30 day, Stop date: 11/19/15 22:01:00 CDT No Longer Active 10/21/2015 [facility] Saline Flush 0.9% Notes: Same as: BD Posiflush Sterile No Longer Active 10/21/2015 [facility] Nitroglycerin Notes: (Same as: Nitroquick, Nitrostat) "Do Not Crush" Sublingual tablet No Longer Active 10/21/2015 [facility] Ondansetron Notes: (Same as: Z ofran) No Longer Active 10/21/2015 [facility] Morphine Notes: (Same as:MORPh ine Sulfate) No Longer Active 10/21/2015 [facility] Insulin, Aspart, Human Notes: Roll in palms of hands gently; Do not shake vigorously. (Same as: NovoLOG) "single patient use only" WASTE: F/P - Black; E - Nourish Trash Bin Stable for 28 days at room temperature. Expires in days from Date Inactive 10/21/2015 [facility] Glucagon 1 mg, Route: IM, Drug form: PDR/INJ, PRN, Dosing Weight 81.818, kg, PRN Blood Glucose Results, Start date: 10/20/15 21:17:00 CDT, Duration: 30 day, Stop date: 11/19/15 21:16:00 CDT Inactive 10/21/2015 [facility] Dextrose 50% Syringe 25 gm, 50 mL, Route: IVP, Drug Form: INJ, Dosing Weight 81.818, kg, PRN, PRN Blood Glucose Results, Start date: 10/20/15 21:17:00 CDT, Duration: 30 day, Stop date: 11/19/15 21:16:00 CDT Inactive 10/21/2015 [facility] Insulin regular 60 units) W ASTE: F/P - Black; E - Municipal Trash Bin Stable for 28 days at room temperature Expires in days from Date Inactive 10/21/2015 [facility] Morphine Notes: (Same as:MORPh ine Sulfate) Inactive 10/21/2015 [facility] Insulin regular 60 units) W ASTE: F/P - Black; E - Municipal Trash Bin Stable for 28 days at room temperature Expires in days from Date Inactive 10/21/2015 [facility] Kayexalate Notes: (sodium poly styrene sulfonate 15 gm/60 ml MEEK) Shake well before use. (Same as: Kayexalate, SPS) Inactive 10/21/2015 [facility] Lasix Notes: (Same as: Lasix) MEDICATION WASTE Product Size: 40 mg Product Wasted: ___ mg Inactive 10/20/2015 [facility] Nitroglycerin Notes: (Same as: Nitrokim Nitrostat) "Do Not Crush" Sublingual tablet Inactive 10/20/2015 [facility] Saline Flush 0.9% Notes: Same as: BD Posiflush Sterile Inactive 10/20/2015 [facility] Imdur Notes: (Same as:Imdur) " Do Not Crush" Take on empty stomach/ full glass of water. Do not crush No Longer Active 05/21/2015 [facility] [facility] 5 mg oral tablet 5 mg = 1 tab, PO, Daily, # 30 tab, 2 Refill(s) Active 05/20/2015 [facility] amLODIPine 10 mg oral tablet 1 0 mg = 1 tab, PO, Daily, # 30 tab, 2 Refill(s) Active 05/20/2015 [facility] isosorbide mononitrate 120 mg oral table t, extended release 120 mg = 1 tab, PO, QAM, # 30 tab, 2 Refill(s) Active 05/20/2015 [facility] tramadol hydrochloride 50 MG Oral Tablet 50 mg = 1 tab, PO, Q6H, PRN Pain, X 10 day, # 40 tab, 0 Refill(s) Active 05/20/2015 [facility] Hydralazine Hydrochloride 25 MG Oral Tablet 50 mg = 2 tab, PO, TID, # 90 tab, 2 Refill(s) Active 05/20/2015 [facility] carvedilol 12.5 mg oral tablet 12.5 mg = 1 tab, PO, Q12H, # 60 tab, 2 Refill(s) Active 05/20/2015 [facility] bumetanide 1 mg oral tablet 1 mg = 1 tab, PO, Q8H, # 90 tab, 2 Refill(s) Active 05/20/2015 [facility] Nystatin 403236 UNT/ML / Triamcinolone A cetonide 1 MG/ML Topical Cream Notes: For External Use Only (Same as:My colog II cream) Inactive 05/20/2015 [facility] nystatin topical 100,000 units/g cream Notes: (Same as:Mycostatin, Nilstat) For external use only. Inactive 05/20/2015 [facility] triamcinolone topical 0.1% cream Notes: (triamcinolone acetonide 0.1% 15 gm top CRM) (Same As: Kenalog) Inactive 05/20/2015 [facility] Bacitracin / Polymyxin B Notes : (Same As: Polysporin) Inactive 05/20/2015 [facility] Dilaudid Notes: Same as: Dilau did Inactive 05/20/2015 [facility] lidocaine 1% 1 vial, Route: GUILLORY B-Q, Dosing Weight 80.3, kg, ONCE, PRN, Start date: 05/20/15 11:53:00, Stop date: 05/20/15 11:53:00, for procedure Inactive 05/20/2015 [facility] lidocaine 1% injectable solution Notes: (Same as: Xylocaine) Inactive 05/20/2015 [facility] Hydralazine Hydrochloride 25 MG Oral Tablet Notes: (Same as: Apresoline) May interfere w/enteral feedings Take With Food. No Longer Active 05/19/2015 [facility] cloNIDine 0.1 mg oral tablet N otes: (Same As: Catapres) No Longer Active 05/19/2015 [facility] Hydralazine Hydrochloride 10 MG Oral Tablet Notes: (Same as: Apresoline) May interfere w/enteral feedings. Take With Food No Longer Active 05/18/2015 [facility] Insulin, Aspart, Human Notes: Roll in palms of hands gently; Do not shake vigorously. (Same as: NovoLOG) "single patient use only" WASTE: F/P - Black; E - Municipal Trash Bin Stable for 28 days at room temperature. Expires in days from Date No Longer Active 05/18/2015 [facility] Bumex Notes: (Same As: Bumex) No Longer Active 05/17/2015 [facility] Imdur Notes: (Same as:Imdur) " Do Not Crush" Take on empty stomach/ full glass of water. Do not crush Inactive 05/17/2015 [facility] Sodium Bicarbonate 10 g, PO, T ID No Longer Active 05/17/2015 [facility] NPH Insulin, Human 70 UNT/ML / Regular I nsulin, Human 30 UNT/ML Injectable Suspension [Humulin] See Instructions, inject 15 units SUB-Q QAM and inject 10 unit SUB-Q QPM Active 05/17/2015 [facility] torsemide 100 mg oral tablet 1 00 mg = 1 tab, PO, BID No Longer Active 05/17/2015 [facility] 24 HR Nifedipine 90 MG Extended Release Tablet [Nifediac] 90 mg = 1 tab, PO, BID No Longer Active 05/17/2015 [facility] Famotidine 20 MG Oral Tablet [Pepcid] 20 mg = 1 tab, PO, Daily Active 05/17/2015 [facility] quetiapine 25 MG Oral Tablet [Seroquel] 25 mg = 1 tab, PO, Daily Active 05/17/2015 [facility] Tamsulosin hydrochloride 0.4 MG Oral Capsule [Flomax] 0.4 mg = 1 cap, PO, Daily Active 05/17/2015 [facility] isosorbide mononitrate 30 mg oral tablet , extended release 30 mg = 1 tab, PO, Daily No Longer Active 05/17/2015 [facility] Levetiracetam 500 MG Oral Tablet [Keppra] 500 mg = 1 tab, PO, BID No Longer Active 05/17/2015 [facility] metoprolol tartrate 25 mg oral tablet 12.5 mg = 0.5 tab, PO, Q12H No Longer Active 05/17/2015 [facility] Clonidine Hydrochloride 0.1 MG Oral Tablet Notes: (Same As: Catapres) No Longer Active 05/17/2015 [facility] Hydralazine Notes: (Same as: A presoline) Push over 5 minutes Inactive 05/17/2015 [facility] Coreg Notes: Give with food. ( Same As: Coreg) No Longer Active 05/17/2015 [facility] Bumex Notes: (Same As: Bumex) No Longer Active 05/16/2015 [facility] Imdur Notes: (Same as:Imdur) " Do Not Crush" Take on empty stomach/ full glass of water. Do not crush No Longer Active 05/16/2015 [facility] Bumex Notes: (Same As: Bumex) Inactive 05/16/2015 [facility] Prabha Lopez Notes: (Same A s: Prabha Lopez) "Do Not Crush" No Longer Active 05/16/2015 [facility] Benadryl Notes: (Same as: [place] dryl) No Longer Active 05/16/2015 [facility] Menthol 0.0044 MG/MG / Zinc Oxide 0.2 MG /MG Topical Ointment [Calmoseptine Ointment] Notes: (Same as: Calmoseptine) No Longer Active 05/16/2015 [facility] Docusate Sodium 50 MG Oral Capsule [Colace] Notes: (Same as: Colace) (Do Not Crush) No Longer Active 05/16/2015 [facility] Lon 24 gm packet Notes: (Antonio e as: Lon Ball) No Longer Active 05/15/2015 [facility] Hydralazine Notes: (Same as: A presoline) Push over 5 minutes No Longer Active 05/15/2015 [facility] Labetalol 20 mg, 4 mL, Route: IVP, Drug form: INJ, Q10Min, Dosing Weight 80.3, kg, PRN Other -See Comment, Start date: 05/15/15 16:31:00, Duration: 30 day, Stop date: 06/14/15 17:30:00 No Longer Active 05/15/2015 [facility] Docusate Sodium 50 MG / sennosides, CORRECTION 8.6 MG Oral Tablet Notes: (Same as Senokot-S) Equiv. to Gita-Colace. Inactive 05/15/2015 [facility] senna 8.6 mg oral tablet 1 tab , Route: PO, Drug Form: TAB, Dosing Weight 80.3, kg, Bedtime, PRN Constipation, Start date: 05/15/15 16:29:00, Duration: 30 day, Stop date: 06/14/15 16:28:00 Inactive 05/15/2015 [facility] Furosemide 40 MG Oral Tablet [Lasix] Notes: (Same as: Lasix) MEDICATION WASTE Product Size: 40 mg Product Wasted: ___ mg No Longer Active 05/15/2015 [facility] Coreg Notes: Give with food. ( Same As: Coreg) No Longer Active 05/15/2015 [facility] senna 8.6 mg oral tablet Notes : (Same as: Senokot) No Longer Active 05/15/2015 [facility] Amlodipine Notes: (Same as: No rvasc) No Longer Active 05/15/2015 [facility] pneumococcal capsular polysaccharide typ e 1 vaccine / pneumococcal capsular polysaccharide type 10A vaccine / pneumococcal capsular polysaccharide type 11A vaccine / pneumococcal capsular polysaccharide type 12F vaccine / pneumococcal capsular polysacchar Notes: (Same as: Pneumovax 23) Refrigerate Inactive 05/15/2015 [facility] influenza virus vaccine, inactivated Notes: (Same as: Fluzone Quadrivalent) For 3 years of age and older (0.5 mL IM) Shake well before use Inactive 05/15/2015 [facility] Acetaminophen 325 MG / Hydrocodone Rg trate 7.5 MG Oral Tablet [[place] 7.5/325] Notes: Same as [place] 325-7.5mg Do not exceed 4gm/day of acetaminophen. No Longer Active 05/15/2015 [facility] Magnesium Sulfate 1 gm, Route: IVPB, Drug form: INJ, ONCE, Dosing Weight 80.3, kg, Start date: 05/15/15 6:37:00, Stop date: 05/15/15 6:37:00 Inactive 05/15/2015 [facility] Albuterol 0.833 MG/ML / Ipratropium Brom alejandro 0.167 MG/ML Inhalant Solution [DuoNeb] Notes: (Same as: Duoneb) No Longer Active 05/15/2015 [facility] Clonidine Notes: (Same As: Cat apres) No Longer Active 05/15/2015 [facility] Amlodipine Notes: (Same as: No rvasc) Inactive 05/15/2015 [facility] Acetaminophen 325 MG / Hydrocodone Rg trate 7.5 MG Oral Tablet [[place] 7.5/325] Notes: Same as [place] 325-7.5mg Do not exceed 4gm/day of acetaminophen. No Longer Active 05/14/2015 [facility] Protonix Notes: Tablet should not be chewed or crushed. (Same as: Protonix) No Longer Active 05/14/2015 [facility] Hydralazine Notes: (Same as: A presoline) Push over 5 minutes No Longer Active 05/14/2015 [facility] Nitroglycerin 0.4 MG Sublingual Tablet Notes: (Same as:Nitroquick, Nitrostat) "Do Not Crush" Sublingual tablet No Longer Active 05/14/2015 [facility] Furosemide 40 MG Oral Tablet [Lasix] 40 mg, 1 tab, Route: PO, Q12H, Dosing Weight 77.727, kg, Start date: 05/14/15 9:00:00, Duration: 30 day, Stop date: 06/12/15 21:00:00 Inactive 05/14/2015 [facility] Terbinafine hydrochloride 10 MG/ML Topical Cream 1 appl, Route: TOP, Drug Form: CRM, Dosing Weight 77.727, kg, BID, Start date: 05/14/15 9:00:00, Duration: 30 day, Stop date: 06/12/15 17:00:00 Inactive 05/14/2015 [facility] Esomeprazole 20 mg, Route: PO, Drug form: ECCAP, Daily, Dosing Weight 77.727, kg, Start date: 05/14/15 9:00:00, Duration: 30 day, Stop date: 06/12/15 9:00:00 Inactiv e 05/14/2015 [facility] Aspirin Notes: Take with food. No Longer Active 05/14/2015 [facility] clotrimazole topical 1% cream Notes: For external use only. (Same As: Lotrimin AF, Mycelex) No Longer Active 05/14/2015 [facility] heparin Notes: porcine heparin No Longer Active 05/14/2015 [facility] Dilaudid 1 mg, Route: IVP, ONC E, Dosing Weight 77.727, kg, Priority: STAT, Start date: 05/14/15 6:22:00, Stop date: 05/14/15 6:22:00 Inactive 05/14/2015 [facility] Hydralazine 10 mg, Route: IV, ONCE, Dosing Weight 77.727, kg, Start date: 05/14/15 5:47:00, Stop date: 05/14/15 5:47:00 Inactive 05/14/2015 [facility] Amlodipine Notes: (Same as: No rvasc) Inactive 05/14/2015 [facility] Dilaudid 0.5 mg, Route: IVP, O NCE, Dosing Weight 77.727, kg, Priority: STAT, Start date: 05/14/15 3:19:00, Stop date: 05/14/15 3:19:00 Inactive 05/14/2015 [facility] Insulin, Aspart, Human Notes: Roll in palms of hands gently; Do not shake vigorously. (Same as: NovoLOG) "single patient use only" WASTE: F/P - Black; E - Municipal Trash Bin Stable for 28 days at room temperature. Expires in days from Date No Longer Active 05/14/2015 [facility] Glucagon 1 mg, Route: IM, Drug form: PDR/INJ, PRN, Dosing Weight 77.727, kg, PRN Blood Glucose Results, Start date: 05/14/15 1:35:00, Duration: 30 day, Stop date: 06/13/15 2:34:00 No Longer Active 05/14/2015 [facility] Dextrose 50% Syringe 25 gm, 50 mL, Route: IVP, Drug Form: INJ, Dosing Weight 77.727, kg, PRN, PRN Blood Glucose Results, Start date: 05/14/15 1:35:00, Duration: 30 day, Stop date: 06/13/15 2:34:00 No Longer Active 05/14/2015 [facility] Lasix Notes: (Same as: Lasix) Inactive 05/14/2015 [facility] Albumin Human, CORRECTION 250 MG/ML Injectable Solution Notes: Lot #: Mfg: (Same as: Plasbumin-25) "blood product derivative" WASTE: F/P - Red; E -Red MEDICATION WASTE Product Size: 25 gm Product Wasted: ___ gm No Longer Active 05/14/2015 [facility] Lasix Notes: (Same as: Lasix) Inactive 05/14/2015 [facility] Allergies, Adverse Reactions, Alerts Substance Category Reaction Severity Reaction type Status Date Reported Comments Source aspirin Assertion Drug allergy Active [facility] penicillins Assertion Drug allergy Active [facility] Tylenol<sup>1</sup> Assertion Propensity to adverse reacti ons to drug Active pt states he swells up when he takes tylenol [facility] Immunizations Immunization Date Given Site Status Last Updated Comments Source influenza virus vaccine, inactivated 05/15/2015 Left deltoid completed [facility] pneumococcal 23-valent vaccine 05/15/2015 Left deltoid completed [facility] influenza virus vaccine, inactivated 05/21/2013 Left deltoid completed [facility] influenza virus vaccine, inactivated 04/13/2012 Right deltoid completed [facility] pneumococcal 23-valent vaccine 04/13/2012 Left deltoid completed [facility] Results Order Name Results Value Reference Range Date Interpretation Comments Source IMMUNOLOGY Hep Bs Ag Negat lolis *NA* (07/08/17 1:25 PM) Negative 07/08/2017 [facility] ELECTROLYTES AGAP 11.8 10.0 - 20.0 07/08/2017 [facility] ELECTROLYTES eGFR 9 07/08/2017 Result Comment: The eGFR is calculated using the [...] from the National Kidney Disease Education Program (NKDEP) which additionally recommends that when the eGFR is used in patients with extremes of body mass index for purposes of drug dosing, the eGFR should be multiplied by the estimated BMI. [facility] ELECTROLYTES Sodium Lvl 134 135 - 145 07/08/2017 [facility] ELECTROLYTES Potassium Lvl 5.8 3.5 - 5.1 07/08/2017 [facility] ELECTROLYTES Chloride Lvl 104 95 - 109 07/08/2017 [facility] ELECTROLYTES Phosphorus 4.2 2.5 - 4.5 07/08/2017 [facility] ELECTROLYTES Creatinine Lvl 6.9 1 0.50 - 1.40 07/08/2017 [facility] ELECTROLYTES BUN 41 7 - 22 07/08/2017 [facility] ELECTROLYTES Glucose Lvl 211 70 - 99 07/08/2017 [facility] ELECTROLYTES CO2 24 24 - 32 07/08/2017 [facility] ELECTROLYTES Albumin Lvl 2.6 3.5 - 5.0 07/08/2017 [facility] ELECTROLYTES Calcium Lvl 8.0 8.5 - 10.5 07/08/2017 [facility] HEMATOLOGY MCHC 32.8 32.0 - 36.0 07/08/2017 [facility] HEMATOLOGY Platelet 220 133 - 450 07/08/2017 [facility] HEMATOLOGY RDW 14.9 11.5 - 14.5 07/08/2017 [facility] HEMATOLOGY MPV 8.3 7.4 - 10.4 07/08/2017 [facility] HEMATOLOGY MCV 87.0 80.0 - 94.0 07/08/2017 [facility] HEMATOLOGY Hct 35.2 42.0 - 54.0 07/08/2017 [facility] HEMATOLOGY Hgb 11.6 14.0 - 18.0 07/08/2017 [facility] HEMATOLOGY RBC 4.05 4.70 - 6.10 07/08/2017 [facility] HEMATOLOGY WBC 8.7 3.7 - 10.4 07/08/2017 [facility] HEMATOLOGY MCH 28.5 27.0 - 31.0 07/08/2017 [facility] HEMATOLOGY Eosinophils 7.6 0.0 - 4.0 07/08/2017 [facility] HEMATOLOGY Monocytes 7.8 2.0 - 12.0 07/08/2017 [facility] HEMATOLOGY Basophils 0.8 0.0 - 1.0 07/08/2017 [facility] HEMATOLOGY Segs-Bands # 4.6 1.5 - 8.1 07/08/2017 [facility] HEMATOLOGY Lymphocytes # 2.7 1.0 - 5.5 07/08/2017 [facility] HEMATOLOGY Basophils # 0.1 0.0 - 0.2 07/08/2017 [facility] HEMATOLOGY Eosinophils # 0.7 0.0 - 0.5 07/08/2017 [facility] HEMATOLOGY Monocytes # 0.7 0.0 - 0.8 07/08/2017 [facility] HEMATOLOGY Lymphocytes 31.2 20.0 - 40.0 07/08/2017 [facility] HEMATOLOGY Segs 52.6 45.0 - 75.0 07/08/2017 [facility] DRUG SCREEN U Opiate Scr Nega tive *NA* (07/07/17 10:48 PM) Negative 07/08/2017 [facility] DRUG SCREEN UDS Note See Note (07/07/17 10:48 PM) 07/08/2017 [facility] DRUG SCREEN U Phencyc Scr Nega tive *NA* (07/07/17 10:48 PM) Negative 07/08/2017 [facility] DRUG SCREEN U Amph Scr Nega tive *NA* (07/07/17 10:48 PM) Negative 07/08/2017 [facility] DRUG SCREEN U Cannab Scr Nega tive *NA* (07/07/17 10:48 PM) Negative 07/08/2017 [facility] DRUG SCREEN U Dang Scr Nega tive *NA* (07/07/17 10:48 PM) Negative 07/08/2017 [facility] DRUG SCREEN U Cocaine Scr Nega tive *NA* (07/07/17 10:48 PM) Negative 07/08/2017 [facility] DRUG SCREEN U Benzodia Scr Nega tive *NA* (07/07/17 10:48 PM) Negative 07/08/2017 [facility] CARDIAC ENZYMES Troponin-I <0.02 0.00 - 0.40 07/07/2017 [facility] CHEM PANEL Lactic Acid Lvl 0.7 0.5 - 2.2 07/07/2017 [facility] CARDIAC ENZYMES CK MB Index 4.3 0.0 - 2.5 07/07/2017 [facility] CARDIAC ENZYMES Total CK 127 12 - 191 07/07/2017 [facility] CARDIAC ENZYMES CK MB 5.4 0.5 - 3.6 07/07/2017 [facility] CARDIAC ENZYMES Troponin-I <0.02 0.00 - 0.40 07/07/2017 [facility] CHEM PANEL eGFR 11 07/07/2017 Result Comment: The eGFR is calculated using the [...] from the National Kidney Disease Education Program (NKDEP) which additionally recommends that when the eGFR is used in patients with extremes of body mass index for purposes of drug dosing, the eGFR should be multiplied by the estimated BMI. [facility] CHEM PANEL Globulin 5.5 2.7 - 4.2 07/07/2017 [facility] CHEM PANEL B/C Ratio 5 6 - 25 07/07/2017 [facility] CHEM PANEL A/G Ratio 0.6 0.7 - 1.6 07/07/2017 [facility] CHEM PANEL ALT 18 0 - 65 07/07/2017 [facility] CHEM PANEL AST 21 0 - 37 07/07/2017 [facility] CHEM PANEL Alk Phos 98 39 - 136 07/07/2017 [facility] CHEM PANEL Bili Total 0.7 0.2 - 1.3 07/07/2017 [facility] CHEM PANEL AGAP 9.7 10.0 - 20.0 07/07/2017 [facility] CHEM PANEL Total Protein 8.7 6.4 - 8.4 07/07/2017 [facility] CHEM PANEL Albumin Lvl 3.2 3.5 - 5.0 07/07/2017 [facility] CHEM PANEL Calcium Lvl 8.7 8.5 - 10.5 07/07/2017 [facility] CHEM PANEL Sodium Lvl 138 135 - 145 07/07/2017 [facility] CHEM PANEL CO2 31 24 - 32 07/07/2017 [facility] CHEM PANEL Chloride Lvl 102 95 - 109 07/07/2017 [facility] CHEM PANEL Potassium Lvl 4.7 3.5 - 5.1 07/07/2017 [facility] CHEM PANEL Glucose Lvl 164 70 - 99 07/07/2017 [facility] CHEM PANEL Creatinine Lvl 5.81 0.50 - 1.40 07/07/2017 [facility] CHEM PANEL BUN 31 7 - 22 07/07/2017 [facility] CHEM PANEL Procalcitonin Lvl 0.90 0.00 - 0.10 07/07/2017 [facility] HEMATOLOGY Eosinophils # 0.5 0.0 - 0.5 07/07/2017 [facility] HEMATOLOGY Basophils # 0.1 0.0 - 0.2 07/07/2017 [facility] HEMATOLOGY Monocytes # 0.7 0.0 - 0.8 07/07/2017 [facility] HEMATOLOGY Segs 67.9 45.0 - 75.0 07/07/2017 [facility] HEMATOLOGY Lymphocytes 21.7 20.0 - 40.0 07/07/2017 [facility] HEMATOLOGY Segs-Bands # 8.2 1.5 - 8.1 07/07/2017 [facility] HEMATOLOGY Lymphocytes # 2.6 1.0 - 5.5 07/07/2017 [facility] HEMATOLOGY Basophils 0.7 0.0 - 1.0 07/07/2017 [facility] HEMATOLOGY Eosinophils 4.3 0.0 - 4.0 07/07/2017 [facility] HEMATOLOGY Monocytes 5.4 2.0 - 12.0 07/07/2017 [facility] HEMATOLOGY Hgb 12.8 14.0 - 18.0 07/07/2017 [facility] HEMATOLOGY Platelet 233 133 - 450 07/07/2017 [facility] HEMATOLOGY RDW 15.3 11.5 - 14.5 07/07/2017 [facility] HEMATOLOGY MCH 28.5 27.0 - 31.0 07/07/2017 [facility] HEMATOLOGY MCV 87.3 80.0 - 94.0 07/07/2017 [facility] HEMATOLOGY Hct 39.3 42.0 - 54.0 07/07/2017 [facility] HEMATOLOGY WBC 12.1 3.7 - 10.4 07/07/2017 [facility] HEMATOLOGY RBC 4.50 4.70 - 6.10 07/07/2017 [facility] HEMATOLOGY MPV 7.9 7.4 - 10.4 07/07/2017 [facility] HEMATOLOGY MCHC 32.7 32.0 - 36.0 07/07/2017 [facility] HEMATOLOGY PTT 36.5 22.9 - 35.8 07/07/2017 [facility] HEMATOLOGY PT 13.8 12.0 - 14.7 07/07/2017 [facility] HEMATOLOGY INR 1.06 0.85 - 1.17 07/07/2017 [facility] CHEM PANEL eGFR 16 01/01/2017 Result Comment: The eGFR is calculated using the [...] from the National Kidney Disease Education Program (NKDEP) which additionally recommends that when the eGFR is used in patients with extremes of body mass index for purposes of drug dosing, the eGFR should be multiplied by the estimated BMI. [facility] CHEM PANEL AGAP 15.6 10.0 - 20.0 01/01/2017 [facility] CHEM PANEL Calcium Lvl 8.3 8.5 - 10.5 01/01/2017 [facility] CHEM PANEL CO2 23 24 - 32 01/01/2017 [facility] CHEM PANEL Chloride Lvl 102 95 - 109 01/01/2017 [facility] CHEM PANEL BUN 37 7 - 22 01/01/2017 [facility] CHEM PANEL Glucose Lvl 50 70 - 99 01/01/2017 Result Comment: Critical Result(s) mclean d to Jovani Hines at 01/01/2017 06:16 byCT. Read back OK. [facility] CHEM PANEL Creatinine Lvl 4.40 0.50 - 1.40 01/01/2017 [facility] CHEM PANEL Sodium Lvl 137 135 - 145 01/01/2017 [facility] CHEM PANEL Potassium Lvl 3.6 3.5 - 5.1 01/01/2017 [facility] HEMATOLOGY Basophils # 0.1 0.0 - 0.2 01/01/2017 [facility] HEMATOLOGY Eosinophils 0.1 0.0 - 4.0 01/01/2017 [facility] Monocytes # 1.8 0.0 - 0.8 01/01/2017 [facility] Lymphocytes # 1.9 1.0 - 5.5 01/01/2017 [facility] Segs-Bands # 11.7 1.5 - 8.1 01/01/2017 [facility] Basophils 0.4 0.0 - 1.0 01/01/2017 [facility] Segs 75.7 45.0 - 75.0 01/01/2017 [facility] Monocytes 11.5 2.0 - 12.0 01/01/2017 [facility] Lymphocytes 12.3 20.0 - 40.0 01/01/2017 [facility] MCV 85.9 80.0 - 94.0 01/01/2017 [facility] Hct 31.7 42.0 - 54.0 01/01/2017 [facility] MCH 26.4 27.0 - 31.0 01/01/2017 [facility] Platelet 214 133 - 450 01/01/2017 [facility] RDW 15.8 11.5 - 14.5 01/01/2017 [facility] MCHC 30.7 32.0 - 36.0 01/01/2017 [facility] RBC 3.69 4.70 - 6.10 01/01/2017 [facility] WBC 15.4 3.7 - 10.4 01/01/2017 [facility] Hgb 9.8 14.0 - 18.0 01/01/2017 [facility] MPV 7.5 7.4 - 10.4 01/01/2017 [facility] CHEM PANEL Lactic Acid Lvl 0.8 0.5 - 2.2 12/31/2016 [facility] CHEM PANEL Procalcitonin Lvl 21.93 0.00 - 0.10 12/31/2016 Result Comment: Critical Result(s) vinay venegas to Marlon Stone at 12/31/2016 18:21 by SHIRA. Read back OK. [facility] DIAGNOSTIC Rody Vancomycin Resistance Not Detected (12/31/16 3:38 PM) Not Detected 12/31/2016 [facility] DIAGNOSTIC mecA Methicilli n Resistance Detected *ABN* (12/31/16 3:38 PM) Not Detected 12/31/2016 [facility] DIAGNOSTIC E. faecalis Not Detected (12/31/16 3:38 PM) Not Detected 12/31/2016 [facility] DIAGNOSTIC S. lugdunensis Not Detected (12/31/16 3:38 PM) Not Detected 12/31/2016 [facility] DIAGNOSTIC S. epidermidis Not Detected (12/31/16 3:38 PM) Not Detected 12/31/2016 [facility] DIAGNOSTIC Streptococcus s pp. Not Detected (12/31/16 3:38 PM) Not Detected 12/31/2016 [facility] Listeria spp. Not Detected (12/31/16 3:38 PM) Not Detected 12/31/2016 [facility] S. pneumoniae Not Detected (12/31/16 3:38 PM) Not Detected 12/31/2016 [facility] DIAGNOSTIC S. aureus Detected *ABN* (12/31/16 3:38 PM) Not Detected 12/31/2016 [facility] DIAGNOSTIC S. agalactiae Not Detected (12/31/16 3:38 PM) Not Detected 12/31/2016 [facility] DIAGNOSTIC S. anginosus gr p Not Detected (12/31/16 3:38 PM) Not Detected 12/31/2016 [facility] DIAGNOSTIC S. pyogenes Not Detected (12/31/16 3:38 PM) Not Detected 12/31/2016 [facility] DIAGNOSTIC vanB Vancomycin Resistance Not Detected (12/31/16 3:38 PM) Not Detected 12/31/2016 [facility] DIAGNOSTIC Staphylococcus spp. Detected *ABN* (12/31/16 3:38 PM) Not Detected 12/31/2016 [facility] MOLECULAR DIAGNOSTIC E. faecium Not Detected (12/31/16 3:38 PM) Not Detected 12/31/2016 [facility] CHEM PANEL eGFR 11 12/31/2016 Result Comment: The eGFR is calculated using the [...] from the National Kidney Disease Education Program (NKDEP) which additionally recommends that when the eGFR is used in patients with extremes of body mass index for purposes of drug dosing, the eGFR should be multiplied by the estimated BMI. [facility] CHEM PANEL Calcium Lvl 8.0 8.5 - 10.5 12/31/2016 [facility] CHEM PANEL AGAP 16.5 10.0 - 20.0 12/31/2016 [facility] CHEM PANEL CO2 23 24 - 32 12/31/2016 [facility] CHEM PANEL Glucose Lvl 132 70 - 99 12/31/2016 [facility] CHEM PANEL BUN 59 7 - 22 12/31/2016 [facility] CHEM PANEL Potassium Lvl 4.5 3.5 - 5.1 12/31/2016 [facility] CHEM PANEL Chloride Lvl 102 95 - 109 12/31/2016 [facility] CHEM PANEL Creatinine Lvl 6.10 0.50 - 1.40 12/31/2016 [facility] CHEM PANEL Sodium Lvl 137 135 - 145 12/31/2016 [facility] Lymphocytes # 1.4 1.0 - 5.5 12/31/2016 [facility] Monocytes # 2.0 0.0 - 0.8 12/31/2016 [facility] HEMATOLOGY Basophils 0.2 0.0 - 1.0 12/31/2016 [facility] HEMATOLOGY Segs-Bands # 17.0 1.5 - 8.1 12/31/2016 [facility] HEMATOLOGY Monocytes 9.8 2.0 - 12.0 12/31/2016 [facility] Lymphocytes 6.9 20.0 - 40.0 12/31/2016 [facility] HEMATOLOGY Segs 83.1 45.0 - 75.0 12/31/2016 [facility] RDW 16.0 11.5 - 14.5 12/31/2016 [facility] MCHC 31.0 32.0 - 36.0 12/31/2016 [facility] HEMATOLOGY Hgb 11.3 14.0 - 18.0 12/31/2016 [facility] HEMATOLOGY Hct 36.5 42.0 - 54.0 12/31/2016 [facility] HEMATOLOGY RBC 4.15 4.70 - 6.10 12/31/2016 [facility] HEMATOLOGY MCV 88.0 80.0 - 94.0 12/31/2016 [facility] HEMATOLOGY MCH 27.2 27.0 - 31.0 12/31/2016 [facility] HEMATOLOGY MPV 7.9 7.4 - 10.4 12/31/2016 [facility] HEMATOLOGY Platelet 236 133 - 450 12/31/2016 [facility] HEMATOLOGY WBC 20.5 3.7 - 10.4 12/31/2016 [facility] CARDIAC ENZYMES Troponin-I 0.07 0.00 - 0.40 12/30/2016 [facility] CHEM PANEL Calcium Lvl 7.8 8.5 - 10.5 12/30/2016 [facility] CHEM PANEL CO2 26 24 - 32 12/30/2016 [facility] CHEM PANEL eGFR 11 12/30/2016 Result Comment: The eGFR is calculated using the [...] from the National Kidney Disease Education Program (NKDEP) which additionally recommends that when the eGFR is used in patients with extremes of body mass index for purposes of drug dosing, the eGFR should be multiplied by the estimated BMI. [facility] CHEM PANEL Chloride Lvl 98 95 - 109 12/30/2016 [facility] CHEM PANEL Sodium Lvl 137 135 - 145 12/30/2016 [facility] CHEM PANEL Potassium Lvl 4.8 3.5 - 5.1 12/30/2016 [facility] CHEM PANEL BUN 46 7 - 22 12/30/2016 [facility] CHEM PANEL Creatinine Lvl 5.80 0.50 - 1.40 12/30/2016 [facility] CHEM PANEL Glucose Lvl 257 70 - 99 12/30/2016 [facility] CHEM PANEL AGAP 17.8 10.0 - 20.0 12/30/2016 [facility] HEMATOLOGY Eosinophils # 0.0 0.0 - 0.5 12/30/2016 [facility] HEMATOLOGY Basophils # 0.0 0.0 - 0.2 12/30/2016 [facility] Monocytes # 1.0 0.0 - 0.8 12/30/2016 [facility] HEMATOLOGY Segs-Bands # 24.0 1.5 - 8.1 12/30/2016 [facility] HEMATOLOGY Lymphocytes # 1.2 1.0 - 5.5 12/30/2016 [facility] HEMATOLOGY Basophils 0.1 0.0 - 1.0 12/30/2016 [facility] HEMATOLOGY Eosinophils 0.0 0.0 - 4.0 12/30/2016 [facility] Monocytes 3.7 2.0 - 12.0 12/30/2016 [facility] Lymphocytes 4.4 20.0 - 40.0 12/30/2016 [facility] HEMATOLOGY Segs 91.8 45.0 - 75.0 12/30/2016 [facility] RDW 16.2 11.5 - 14.5 12/30/2016 [facility] MPV 8.1 7.4 - 10.4 12/30/2016 [facility] Platelet 282 133 - 450 12/30/2016 [facility] MCH 27.0 27.0 - 31.0 12/30/2016 [facility] MCHC 30.9 32.0 - 36.0 12/30/2016 [facility] WBC 26.2 3.7 - 10.4 12/30/2016 [facility] HEMATOLOGY RBC 4.42 4.70 - 6.10 12/30/2016 [facility] HEMATOLOGY Hct 38.7 42.0 - 54.0 12/30/2016 [facility] MCV 87.5 80.0 - 94.0 12/30/2016 [facility] Hgb 11.9 14.0 - 18.0 12/30/2016 [facility] IMMUNOLOGY Hep Bs Ag Negat lolis *NA* (12/29/16 3:19 PM) Negative 12/29/2016 [facility] IMMUNOLOGY Hep C Ab Posit lolis *ABN* (12/29/16 3:19 PM) 12/29/2016 [facility] SPECIAL CHEMISTRY Hgb A1C 5.8 <=5.6 % 12/29/2016 [facility] CARDIAC ENZYMES Troponin-I 0.11 0.00 - 0.40 12/29/2016 [facility] CHEM PANEL Lipase Lvl 48 73 - 393 12/29/2016 [facility] CHEM PANEL Phosphorus 8.2 2.5 - 4.5 12/29/2016 [facility] CHEM PANEL Magnesium Lvl 2.4 1.8 - 2.4 12/29/2016 [facility] CHEM PANEL Ammonia 30.0 <=45.0 uMol/L 12/29/2016 [facility] CHEM PANEL Globulin 7.2 2.7 - 4.2 12/29/2016 [facility] CHEM PANEL A/G Ratio 0.4 0.7 - 1.6 12/29/2016 [facility] CHEM PANEL Bili Direct 0.2 0.0 - 0.3 12/29/2016 [facility] CHEM PANEL Bili Indirect 0.3 0.0 - 1.0 12/29/2016 [facility] CHEM PANEL ALT 19 0 - 65 12/29/2016 [facility] CHEM PANEL AST 38 0 - 37 12/29/2016 [facility] CHEM PANEL Bili Total 0.5 0.2 - 1.3 12/29/2016 [facility] CHEM PANEL Alk Phos 86 39 - 136 12/29/2016 [facility] CHEM PANEL Albumin Lvl 2.9 3.5 - 5.0 12/29/2016 [facility] CHEM PANEL Total Protein 10.1 6.4 - 8.4 12/29/2016 [facility] CHEM PANEL Lactic Acid Lvl 1.8 0.5 - 2.2 12/29/2016 [facility] HEMATOLOGY INR 1.15 0.85 - 1.17 12/29/2016 [facility] HEMATOLOGY PT 14.9 12.0 - 14.7 12/29/2016 [facility] HEMATOLOGY Basophils # 0.0 0.0 - 0.2 12/29/2016 [facility] HEMATOLOGY Eosinophils # 0.0 0.0 - 0.5 12/29/2016 [facility] HEMATOLOGY Eosinophils 0.0 0.0 - 4.0 12/29/2016 [facility] HEMATOLOGY Basophils # 0.1 0.0 - 0.2 08/19/2016 [facility] HEMATOLOGY Eosinophils # 0.6 0.0 - 0.5 08/19/2016 [facility] HEMATOLOGY Segs-Bands # 6.8 1.5 - 8.1 08/19/2016 [facility] HEMATOLOGY Lymphocytes # 2.7 1.0 - 5.5 08/19/2016 [facility] HEMATOLOGY Basophils 0.7 0.0 - 1.0 08/19/2016 [facility] Monocytes # 2.0 0.0 - 0.8 08/19/2016 [facility] Monocytes 16.5 2.0 - 12.0 08/19/2016 [facility] Eosinophils 4.8 0.0 - 4.0 08/19/2016 [facility] Lymphocytes 22.4 20.0 - 40.0 08/19/2016 [facility] Segs 55.6 45.0 - 75.0 08/19/2016 [facility] Hgb 8.6 14.0 - 18.0 08/19/2016 [facility] Hct 25.3 42.0 - 54.0 08/19/2016 [facility] WBC 12.2 3.7 - 10.4 08/19/2016 [facility] RBC 2.97 4.70 - 6.10 08/19/2016 [facility] RDW 16.0 11.5 - 14.5 08/19/2016 [facility] MCH 28.9 27.0 - 31.0 08/19/2016 [facility] MCHC 33.9 32.0 - 36.0 08/19/2016 [facility] MCV 85.4 80.0 - 94.0 08/19/2016 [facility] MPV 7.6 7.4 - 10.4 08/19/2016 [facility] Platelet 356 133 - 450 08/19/2016 [facility] CHEM PANEL eGFR 13 08/18/2016 Result Comment: The eGFR is calculated using the [...] from the National Kidney Disease Education Program (NKDEP) which additionally recommends that when the eGFR is used in patients with extremes of body mass index for purposes of drug dosing, the eGFR should be multiplied by the estimated BMI. [facility] CHEM PANEL Calcium Lvl 8.2 8.5 - 10.5 08/18/2016 [facility] CHEM PANEL CO2 27 24 - 32 08/18/2016 [facility] CHEM PANEL Chloride Lvl 102 95 - 109 08/18/2016 [facility] CHEM PANEL Potassium Lvl 3.8 3.5 - 5.1 08/18/2016 [facility] CHEM PANEL Sodium Lvl 136 135 - 145 08/18/2016 [facility] CHEM PANEL Creatinine Lvl 5.10 0.50 - 1.40 08/18/2016 [facility] CHEM PANEL BUN 62 7 - 22 08/18/2016 [facility] CHEM PANEL Glucose Lvl 100 70 - 99 08/18/2016 [facility] CHEM PANEL AGAP 10.8 10.0 - 20.0 08/18/2016 [facility] HEMATOLOGY Basophils # 0.1 0.0 - 0.2 08/18/2016 [facility] HEMATOLOGY Eosinophils # 1.0 0.0 - 0.5 08/18/2016 [facility] HEMATOLOGY Segs-Bands # 8.5 1.5 - 8.1 08/18/2016 [facility] HEMATOLOGY Lymphocytes # 2.5 1.0 - 5.5 08/18/2016 [facility] Monocytes # 2.2 0.0 - 0.8 08/18/2016 [facility] HEMATOLOGY Segs 59.4 45.0 - 75.0 08/18/2016 [facility] Lymphocytes 17.9 20.0 - 40.0 08/18/2016 [facility] HEMATOLOGY Basophils 0.7 0.0 - 1.0 08/18/2016 [facility] Monocytes 15.2 2.0 - 12.0 08/18/2016 [facility] HEMATOLOGY Eosinophils 6.8 0.0 - 4.0 08/18/2016 [facility] HEMATOLOGY MCHC 32.5 32.0 - 36.0 08/18/2016 [facility] MCH 27.7 27.0 - 31.0 08/18/2016 [facility] HEMATOLOGY Platelet 333 133 - 450 08/18/2016 [facility] HEMATOLOGY RDW 16.1 11.5 - 14.5 08/18/2016 [facility] MPV 7.8 7.4 - 10.4 08/18/2016 [facility] RBC 2.93 4.70 - 6.10 08/18/2016 [facility] WBC 14.3 3.7 - 10.4 08/18/2016 [facility] HEMATOLOGY Hct 25.0 42.0 - 54.0 08/18/2016 [facility] HEMATOLOGY Hgb 8.1 14.0 - 18.0 08/18/2016 [facility] HEMATOLOGY MCV 85.2 80.0 - 94.0 08/18/2016 [facility] CHEM PANEL Procalcitonin Lvl 6.38 0.00 - 0.10 08/17/2016 Result Comment: Critical Result(s) mclean rubi scherer krysta at 13:30_ by_gh. Read back OK. [facility] ELECTROLYTES CO2 27 24 - 32 08/17/2016 [facility] ELECTROLYTES Calcium Lvl 7.6 8.5 - 10.5 08/17/2016 [facility] ELECTROLYTES AGAP 9.8 10.0 - 20.0 08/17/2016 [facility] ELECTROLYTES eGFR 17 08/17/2016 Result Comment: The eGFR is calculated using the [...] from the National Kidney Disease Education Program (NKDEP) which additionally recommends that when the eGFR is used in patients with extremes of body mass index for purposes of drug dosing, the eGFR should be multiplied by the estimated BMI. [facility] ELECTROLYTES Potassium Lvl 3.8 3.5 - 5.1 08/17/2016 [facility] ELECTROLYTES Sodium Lvl 137 135 - 145 08/17/2016 [facility] ELECTROLYTES Creatinine Lvl 4.2 0 0.50 - 1.40 08/17/2016 [facility] ELECTROLYTES Glucose Lvl 123 70 - 99 08/17/2016 [facility] ELECTROLYTES BUN 45 7 - 22 08/17/2016 [facility] ELECTROLYTES Chloride Lvl 104 95 - 109 08/17/2016 [facility] MPV 7.8 7.4 - 10.4 08/17/2016 [facility] HEMATOLOGY RDW 16.4 11.5 - 14.5 08/17/2016 [facility] MCHC 31.9 32.0 - 36.0 08/17/2016 [facility] Platelet 339 133 - 450 08/17/2016 [facility] HEMATOLOGY MCH 27.4 27.0 - 31.0 08/17/2016 [facility] HEMATOLOGY MCV 86.0 80.0 - 94.0 08/17/2016 [facility] Hct 25.9 42.0 - 54.0 08/17/2016 [facility] HEMATOLOGY WBC 14.6 3.7 - 10.4 08/17/2016 [facility] HEMATOLOGY Hgb 8.3 14.0 - 18.0 08/17/2016 [facility] HEMATOLOGY RBC 3.02 4.70 - 6.10 08/17/2016 [facility] ELECTROLYTES CO2 28 24 - 32 08/17/2016 [facility] ELECTROLYTES Calcium Lvl 7.8 8.5 - 10.5 08/17/2016 [facility] ELECTROLYTES AGAP 11.4 10.0 - 20.0 08/17/2016 [facility] ELECTROLYTES Glucose Lvl 240 70 - 99 08/17/2016 [facility] ELECTROLYTES Creatinine Lvl 3.8 0 0.50 - 1.40 08/17/2016 [facility] ELECTROLYTES BUN 43 7 - 22 08/17/2016 [facility] ELECTROLYTES Potassium Lvl 3.4 3.5 - 5.1 08/17/2016 [facility] ELECTROLYTES Chloride Lvl 106 95 - 109 08/17/2016 [facility] ELECTROLYTES Sodium Lvl 142 135 - 145 08/17/2016 [facility] ELECTROLYTES eGFR 19 08/17/2016 Result Comment: The eGFR is calculated using the [...] from the National Kidney Disease Education Program (NKDEP) which additionally recommends that when the eGFR is used in patients with extremes of body mass index for purposes of drug dosing, the eGFR should be multiplied by the estimated BMI. [facility] HEMATOLOGY Monocytes # 2.0 0.0 - 0.8 08/16/2016 [facility] HEMATOLOGY Eosinophils # 0.6 0.0 - 0.5 08/16/2016 [facility] HEMATOLOGY Basophils 0.6 0.0 - 1.0 08/16/2016 [facility] HEMATOLOGY Segs-Bands # 8.0 1.5 - 8.1 08/16/2016 [facility] HEMATOLOGY Basophils # 0.1 0.0 - 0.2 08/16/2016 [facility] HEMATOLOGY Lymphocytes # 1.9 1.0 - 5.5 08/16/2016 [facility] HEMATOLOGY Segs 63.5 45.0 - 75.0 08/16/2016 [facility] Lymphocytes 15.2 20.0 - 40.0 08/16/2016 [facility] HEMATOLOGY Monocytes 15.9 2.0 - 12.0 08/16/2016 [facility] HEMATOLOGY Eosinophils 4.8 0.0 - 4.0 08/16/2016 [facility] BLOOD BANK RESULTS RBC product Product available (08/15/16 5:45 AM) 08/15/2016 [facility] BLOOD BANK RESULTS RBC product Product available (08/15/16 1:43 AM) 08/15/2016 [facility] BLOOD BANK RESULTS RBC product Product available (08/14/16 7:56 AM) 08/14/2016 [facility] BLOOD BANK RESULTS Antibody Scrn Negative (08/14/16 5:05 AM) 08/14/2016 [facility] BLOOD BANK RESULTS ABO/Rh B POS 08/14/2016 [facility] HEMATOLOGY Polychrom Moder ate *ABN* (08/14/16 5:05 AM) None Seen 08/14/2016 [facility] HEMATOLOGY Plt Morph Cande l (08/14/16 5:05 AM) 08/14/2016 [facility] HEMATOLOGY Sed Rate 100 0 - 15 08/13/2016 [facility] TOXICOLOGY Vanco Lvl 9.7 08/13/2016 [facility] CHEM PANEL Procalcitonin Lvl 23.22 0.00 - 0.10 08/12/2016 Result Comment: Critical Result(s) vinay Castillo at 08/12/2016 16:18 by Deisy. Read back OK. [facility] IMMUNOLOGY HIV Ag/Ab 4th Gen Negat lolis *NA* (08/12/16 10:00 AM) Negative 08/12/2016 [facility] IMMUNOLOGY TATI Negat lolis (08/12/16 10:00 AM) Negative 08/12/2016 [facility] MOLECULAR DIAGNOSTIC HCV RNA Log10 5.5 08/12/2016 [facility] MOLECULAR DIAGNOSTIC HCV RNA VirLoad [id number] 08/12/2016 [facility] CHEM PANEL Phosphorus 5.3 2.5 - 4.5 08/12/2016 [facility] CHEM PANEL Magnesium Lvl 1.9 1.8 - 2.4 08/12/2016 [facility] CHEM PANEL Total Protein 7.4 6.4 - 8.4 08/12/2016 [facility] CHEM PANEL Albumin Lvl 1.9 3.5 - 5.0 08/12/2016 [facility] CHEM PANEL ALT 13 0 - 65 08/12/2016 [facility] CHEM PANEL AST 21 0 - 37 08/12/2016 [facility] CHEM PANEL Alk Phos 56 39 - 136 08/12/2016 [facility] CHEM PANEL Bili Total 0.5 0.2 - 1.3 08/12/2016 [facility] CHEM PANEL Globulin 5.5 2.7 - 4.2 08/12/2016 [facility] CHEM PANEL A/G Ratio 0.3 0.7 - 1.6 08/12/2016 [facility] CHEM PANEL B/C Ratio 8 6 - 25 08/12/2016 [facility] PARATHYROID PROFILE Ca Ion WB 1.07 1.05 - 1.25 08/12/2016 [facility] PARATHYROID PROFILE Ca Norm WB 1.03 1.05 - 1.25 08/12/2016 [facility] CHEM PANEL Magnesium Lvl 1.8 1.8 - 2.4 08/11/2016 [facility] CHEM PANEL Phosphorus 4.7 2.5 - 4.5 08/11/2016 [facility] PARATHYROID PROFILE Ca Norm WB 1.13 1.05 - 1.25 08/11/2016 [facility] PARATHYROID PROFILE Ca Ion WB 1.13 1.05 - 1.25 08/11/2016 [facility] SPECIAL CHEMISTRY Hgb A1C <3.5 % <=5.6 % 08/11/2016 [facility] CHEM PANEL Albumin Lvl 2.0 3.5 - 5.0 08/10/2016 [facility] CHEM PANEL Globulin 5.1 2.7 - 4.2 08/10/2016 [facility] CHEM PANEL Bili Total 0.5 0.2 - 1.3 08/10/2016 [facility] CHEM PANEL Total Protein 7.1 6.4 - 8.4 08/10/2016 [facility] CHEM PANEL B/C Ratio 8 6 - 25 08/10/2016 [facility] CHEM PANEL Alk Phos 55 39 - 136 08/10/2016 [facility] CHEM PANEL AST 18 0 - 37 08/10/2016 [facility] CHEM PANEL ALT 10 0 - 65 08/10/2016 [facility] CHEM PANEL A/G Ratio 0.4 0.7 - 1.6 08/10/2016 [facility] PARATHYROID PROFILE Ca Ion WB 1.01 1.05 - 1.25 08/10/2016 [facility] PARATHYROID PROFILE Ca Norm WB 1.04 1.05 - 1.25 08/10/2016 [facility] CHEM PANEL Phosphorus 4.4 2.5 - 4.5 08/10/2016 [facility] CHEM PANEL Magnesium Lvl 1.8 1.8 - 2.4 08/10/2016 [facility] HEMATOLOGY Fibrinogen Lvl 343 230 - 510 08/10/2016 [facility] HEMATOLOGY PT 15.3 12.0 - 14.7 08/10/2016 [facility] HEMATOLOGY INR 1.18 0.85 - 1.17 08/10/2016 [facility] HEMATOLOGY PTT 39.5 22.9 - 35.8 08/10/2016 [facility] BODY FLUIDS Clarity BF Clot yecenia 1 *ABN* (08/10/16 3:23 PM) Clear 08/10/2016 Result Comment: Clottted Specimen - Cell counts may not be hr representative [facility] BODY FLUIDS Color BF Brow n *ABN* (08/10/16 3:23 PM) Colorless 08/10/2016 [facility] BODY FLUIDS RBC BF [id number] 08/10/2016 [facility] BODY FLUIDS WBC BF 56 08/10/2016 [facility] BODY FLUIDS Segs BF 30 08/10/2016 [facility] BODY [facility] CellCnt BF Type Pleu ral (08/10/16 3:23 PM) 08/10/2016 [facility] BODY FLUIDS Lymph BF 57 08/10/2016 [facility] BODY FLUIDS Macrophage BF 13 08/10/2016 [facility] BODY FLUIDS pH BF Type Pleu ral (08/10/16 3:23 PM) 08/10/2016 [facility] BODY FLUIDS pH BF 8.00 08/10/2016 [facility] BODY FLUIDS Amyl BF Type Pleu ral *NA* (08/10/16 3:23 PM) 08/10/2016 [facility] BODY FLUIDS Amylase BF 16 08/10/2016 [facility] BODY FLUIDS Alb BF Type Pleu ral *NA* (08/10/16 3:23 PM) 08/10/2016 [facility] BODY FLUIDS Albumin BF 1.7 08/10/2016 [facility] BODY FLUIDS LDH BF 669 08/10/2016 [facility] BODY FLUIDS LDH BF Type Pleu ral (08/10/16 3:23 PM) 08/10/2016 [facility] BODY FLUIDS Gluc BF Type Pleu ral *NA* (08/10/16 3:23 PM) 08/10/2016 [facility] BODY FLUIDS Glucose BF 81 08/10/2016 [facility] BODY FLUIDS Prot BF Type Pleu ral *NA* (08/10/16 3:23 PM) 08/10/2016 [facility] BODY FLUIDS Protein BF 5.2 08/10/2016 [facility] CHEM PANEL POC Glucose 56 70 - 99 08/10/2016 [facility] CHEM PANEL POC BUN 32 7 - 22 08/10/2016 [facility] CHEM PANEL POC Hemoglobin 11.6 14.0 - 18.0 08/10/2016 [facility] CHEM PANEL POC Hematocrit 34.0 42.0 - 54.0 08/10/2016 [facility] CHEM PANEL POC Potassium 4.6 3.5 - 5.1 08/10/2016 [facility] CHEM PANEL POC Chloride 97 95 - 109 08/10/2016 [facility] CHEM PANEL POC Sodium 138 135 - 145 08/10/2016 [facility] HEMATOLOGY RBC Morph Cande l (08/10/16 3:40 AM) 08/10/2016 [facility] HEMATOLOGY Plt Morph Cande l (08/10/16 3:40 AM) 08/10/2016 [facility] HEMATOLOGY PT 14.9 12.0 - 14.7 08/10/2016 [facility] HEMATOLOGY INR 1.15 0.85 - 1.17 08/10/2016 [facility] HEMATOLOGY PTT 39.5 22.9 - 35.8 08/10/2016 [facility] BLOOD BANK RESULTS Antibody Scrn Negative (08/09/16 10:44 PM) 08/10/2016 [facility] BLOOD BANK RESULTS ABO/Rh B POS 08/10/2016 [facility] IMMUNOLOGY Hep C Ab Posit lolis *ABN* (08/08/16 12:08 PM) 08/08/2016 [facility] IMMUNOLOGY Hep Bs Ag Negat lolis *NA* (08/08/16 12:08 PM) Negative 08/08/2016 [facility] BODY FLUIDS Prot BF Type Pleu ral *NA* (08/08/16 11:46 AM) 08/08/2016 [facility] BODY FLUIDS Protein BF 5.6 08/08/2016 [facility] BODY FLUIDS LDH BF Type Pleu ral (08/08/16 11:46 AM) 08/08/2016 [facility] BODY FLUIDS LDH BF 664 08/08/2016 [facility] [place] [id number] 08/08/2016 [facility] BODY FLUIDS CellCnt BF Type Pleu ral (08/08/16 11:46 AM) 08/08/2016 [facility] BODY FLUIDS WBC BF 63 08/08/2016 [facility] BODY FLUIDS Supernat BF Brow n *ABN* (08/08/16 11:46 AM) Colorless 08/08/2016 [facility] BODY FLUIDS Clarity BF Timi ed *ABN* (08/08/16 11:46 AM) Clear 08/08/2016 [facility] BODY FLUIDS Color BF Brow n *ABN* (08/08/16 11:46 AM) Colorless 08/08/2016 [facility] BODY FLUIDS Macrophage BF 17 08/08/2016 [facility] BODY FLUIDS Lymph BF 69 08/08/2016 [facility] BODY FLUIDS Segs BF 14 08/08/2016 [facility] CARDIAC ENZYMES Troponin-I 0.02 0.00 - 0.40 08/08/2016 [facility] CHEM PANEL B/C Ratio 6 6 - 25 08/08/2016 [facility] CHEM PANEL A/G Ratio 0.4 0.7 - 1.6 08/08/2016 [facility] CHEM PANEL Globulin 7.2 2.7 - 4.2 08/08/2016 [facility] CHEM PANEL Bili Total 0.5 0.2 - 1.3 08/08/2016 [facility] CHEM PANEL Albumin Lvl 2.8 3.5 - 5.0 08/08/2016 [facility] CHEM PANEL ALT 16 0 - 65 08/08/2016 [facility] CHEM PANEL Total Protein 10.0 6.4 - 8.4 08/08/2016 [facility] CHEM PANEL Alk Phos 78 39 - 136 08/08/2016 [facility] CHEM PANEL AST 22 0 - 37 08/08/2016 [facility] HEMATOLOGY INR 1.07 0.85 - 1.17 08/08/2016 [facility] HEMATOLOGY PT 14.1 12.0 - 14.7 08/08/2016 [facility] HEMATOLOGY PTT 40.1 22.9 - 35.8 08/08/2016 [facility] CHEM PANEL LDH 214 98 - 192 08/08/2016 [facility] IMMUNOLOGY Hep Bs Ag Negat lolis *NA* (07/25/16 2:00 PM) Negative 07/25/2016 [facility] CARDIAC ENZYMES BNP 304 <=100 pg/mL 07/25/2016 [facility] CARDIAC ENZYMES Total CK 144 12 - 191 07/25/2016 [facility] CARDIAC ENZYMES Troponin-I 0.02 0.00 - 0.40 07/25/2016 [facility] CARDIAC ENZYMES CK MB 6.7 0.5 - 3.6 07/25/2016 [facility] CARDIAC ENZYMES CK MB Index 4.7 0.0 - 2.5 07/25/2016 [facility] CHEM PANEL eGFR 18 07/25/2016 Result Comment: The eGFR is calculated using the [...] from the National Kidney Disease Education Program (NKDEP) which additionally recommends that when the eGFR is used in patients with extremes of body mass index for purposes of drug dosing, the eGFR should be multiplied by the estimated BMI. [facility] CHEM PANEL B/C Ratio 5 6 - 25 07/25/2016 [facility] CHEM PANEL Globulin 6.2 2.7 - 4.2 07/25/2016 [facility] CHEM PANEL A/G Ratio 0.4 0.7 - 1.6 07/25/2016 [facility] CHEM PANEL Glucose Lvl 173 70 - 99 07/25/2016 [facility] CHEM PANEL BUN 19 7 - 22 07/25/2016 [facility] CHEM PANEL Potassium Lvl 3.7 3.5 - 5.1 07/25/2016 [facility] CHEM PANEL Sodium Lvl 139 135 - 145 07/25/2016 [facility] CHEM PANEL Creatinine Lvl 4.02 0.50 - 1.40 07/25/2016 [facility] CHEM PANEL CO2 34 24 - 32 07/25/2016 [facility] CHEM PANEL Chloride Lvl 100 95 - 109 07/25/2016 [facility] CHEM PANEL Total Protein 8.7 6.4 - 8.4 07/25/2016 [facility] CHEM PANEL Calcium Lvl 8.3 8.5 - 10.5 07/25/2016 [facility] CHEM PANEL AST 13 0 - 37 07/25/2016 [facility] CHEM PANEL Alk Phos 74 39 - 136 07/25/2016 [facility] CHEM PANEL Albumin Lvl 2.5 3.5 - 5.0 07/25/2016 [facility] CHEM PANEL ALT 11 0 - 65 07/25/2016 [facility] CHEM PANEL AGAP 8.7 10.0 - 20.0 07/25/2016 [facility] CHEM PANEL Bili Total 0.4 0.2 - 1.3 07/25/2016 [facility] HEMATOLOGY MPV 7.3 7.4 - 10.4 07/25/2016 [facility] HEMATOLOGY RBC 3.44 4.70 - 6.10 07/25/2016 [facility] HEMATOLOGY WBC 8.8 3.7 - 10.4 07/25/2016 [facility] HEMATOLOGY Hct 29.9 42.0 - 54.0 07/25/2016 [facility] HEMATOLOGY Hgb 9.5 14.0 - 18.0 07/25/2016 [facility] HEMATOLOGY MCV 87.1 80.0 - 94.0 07/25/2016 [facility] HEMATOLOGY MCHC 31.6 32.0 - 36.0 07/25/2016 [facility] HEMATOLOGY Platelet 261 133 - 450 07/25/2016 [facility] HEMATOLOGY RDW 15.8 11.5 - 14.5 07/25/2016 [facility] HEMATOLOGY MCH 27.5 27.0 - 31.0 07/25/2016 [facility] HEMATOLOGY Segs-Bands # 4.2 1.5 - 8.1 07/25/2016 [facility] HEMATOLOGY Eosinophils # 0.5 0.0 - 0.5 07/25/2016 [facility] HEMATOLOGY Monocytes # 1.3 0.0 - 0.8 07/25/2016 [facility] HEMATOLOGY Basophils # 0.1 0.0 - 0.2 07/25/2016 [facility] HEMATOLOGY Basophils 0.7 0.0 - 1.0 07/25/2016 [facility] HEMATOLOGY Eosinophils 5.3 0.0 - 4.0 07/25/2016 [facility] HEMATOLOGY Monocytes 14.3 2.0 - 12.0 07/25/2016 [facility] HEMATOLOGY Lymphocytes # 2.8 1.0 - 5.5 07/25/2016 [facility] HEMATOLOGY Segs 48.0 45.0 - 75.0 07/25/2016 [facility] HEMATOLOGY Lymphocytes 31.7 20.0 - 40.0 07/25/2016 [facility] ELECTROLYTES AGAP 13.3 10.0 - 20.0 11/06/2015 [facility] ELECTROLYTES Calcium Lvl 8.6 8.5 - 10.5 11/06/2015 [facility] ELECTROLYTES Potassium Lvl 4.3 3.5 - 5.1 11/06/2015 [facility] ELECTROLYTES Chloride Lvl 100 95 - 109 11/06/2015 [facility] ELECTROLYTES CO2 29 24 - 32 11/06/2015 [facility] ELECTROLYTES Sodium Lvl 138 135 - 145 11/06/2015 [facility] ELECTROLYTES BUN 23 7 - 22 11/06/2015 [facility] ELECTROLYTES eGFR 27 11/06/2015 Result Comment: The eGFR is calculated using the [...] from the National Kidney Disease Education Program (NKDEP) which additionally recommends that when the eGFR is used in patients with extremes of body mass index for purposes of drug dosing, the eGFR should be multiplied by the estimated BMI. [facility] ELECTROLYTES Glucose Lvl 209 70 - 99 11/06/2015 [facility] ELECTROLYTES Creatinine Lvl 2.8 5 0.50 - 1.40 11/06/2015 [facility] HEMATOLOGY Eosinophils 8.8 0.0 - 4.0 11/06/2015 [facility] HEMATOLOGY Segs 49.7 45.0 - 75.0 11/06/2015 [facility] HEMATOLOGY Monocytes 11.3 2.0 - 12.0 11/06/2015 [facility] HEMATOLOGY Lymphocytes 30.1 20.0 - 40.0 11/06/2015 [facility] HEMATOLOGY Basophils 0.1 0.0 - 1.0 11/06/2015 [facility] HEMATOLOGY Monocytes # 0.6 0.0 - 0.8 11/06/2015 [facility] HEMATOLOGY Lymphocytes # 1.7 1.0 - 5.5 11/06/2015 [facility] HEMATOLOGY Eosinophils # 0.5 0.0 - 0.5 11/06/2015 [facility] HEMATOLOGY Segs-Bands # 2.8 1.5 - 8.1 11/06/2015 [facility] HEMATOLOGY WBC 5.7 3.7 - 10.4 11/06/2015 [facility] HEMATOLOGY Hgb 8.6 14.0 - 18.0 11/06/2015 [facility] HEMATOLOGY RBC 3.26 4.70 - 6.10 11/06/2015 [facility] HEMATOLOGY MCV 82.6 80.0 - 94.0 11/06/2015 [facility] HEMATOLOGY Platelet 112 133 - 450 11/06/2015 [facility] HEMATOLOGY MPV 9.1 7.4 - 10.4 11/06/2015 [facility] HEMATOLOGY MCHC 32.0 32.0 - 36.0 11/06/2015 [facility] HEMATOLOGY RDW 16.0 11.5 - 14.5 11/06/2015 [facility] HEMATOLOGY Hct 26.9 42.0 - 54.0 11/06/2015 [facility] HEMATOLOGY MCH 26.5 27.0 - 31.0 11/06/2015 [facility] URINE AND STOOL UA Glucose 150 11/05/2015 [facility] URINE AND STOOL UA Ketones Negative 11/05/2015 [facility] URINE AND STOOL UA Urobilinogen <=1.0 mg/dL 0.1 - 1.0 11/05/2015 [facility] URINE AND STOOL UA Sq Epi Few /LPF Few /LPF 11/05/2015 [facility] URINE AND STOOL UA Nitrite Negative (11/05/15 5:36 PM) Negative 11/05/2015 [facility] URINE AND STOOL UA Blood Negative (11/05/15 5:36 PM) Negative 11/05/2015 [facility] URINE AND STOOL UA Leuk Est Negative (11/05/15 5:36 PM) Negative 11/05/2015 [facility] URINE AND STOOL UA Protein >=300 mg/dL Negative mg/dL 11/05/2015 [facility] URINE AND STOOL UA pH 7.0 5.0 - 8.0 11/05/2015 [facility] URINE AND STOOL UA Spec Grav 1.020 <=1.030 11/05/2015 [facility] URINE AND STOOL UA Bili Negative *NA* (11/05/15 5:36 PM) Negative 11/05/2015 [facility] URINE AND STOOL UA Color Dark Yellow *NA* (11/05/15 5:36 PM) Yellow 11/05/2015 [facility] URINE AND STOOL UA Turbidity Slight *ABN* (11/05/15 5:36 PM) Clear 11/05/2015 [facility] URINE AND STOOL UA Bacteria Occasional /HPF None Seen /HPF 11/05/2015 [facility] URINE AND STOOL UA RBC 2 0 - 2 11/05/2015 [facility] URINE AND STOOL UA WBC 5 0 - 5 11/05/2015 [facility] URINE AND STOOL UA Hyal Cast 1 0 - 2 11/05/2015 [facility] URINE AND STOOL UA Mucus Few /LPF None Seen /LPF 11/05/2015 [facility] ELECTROLYTES CO2 30 24 - 32 11/05/2015 [facility] ELECTROLYTES eGFR 45 11/05/2015 Result Comment: The eGFR is calculated using the [...] from the National Kidney Disease Education Program (NKDEP) which additionally recommends that when the eGFR is used in patients with extremes of body mass index for purposes of drug dosing, the eGFR should be multiplied by the estimated BMI. [facility] ELECTROLYTES Glucose Lvl 142 70 - 99 11/05/2015 [facility] ELECTROLYTES BUN 12 7 - 22 11/05/2015 [facility] ELECTROLYTES Creatinine Lvl 1.8 9 0.50 - 1.40 11/05/2015 [facility] ELECTROLYTES Sodium Lvl 139 135 - 145 11/05/2015 [facility] ELECTROLYTES Potassium Lvl 4.1 3.5 - 5.1 11/05/2015 [facility] ELECTROLYTES Chloride Lvl 101 95 - 109 11/05/2015 [facility] ELECTROLYTES Calcium Lvl 8.1 8.5 - 10.5 11/05/2015 [facility] ELECTROLYTES AGAP 12.1 10.0 - 20.0 11/05/2015 [facility] HEMATOLOGY Monocytes # 0.6 0.0 - 0.8 11/05/2015 [facility] HEMATOLOGY Eosinophils # 0.4 0.0 - 0.5 11/05/2015 [facility] HEMATOLOGY Segs 52.1 45.0 - 75.0 11/05/2015 [facility] HEMATOLOGY Segs-Bands # 3.0 1.5 - 8.1 11/05/2015 [facility] HEMATOLOGY Lymphocytes # 1.7 1.0 - 5.5 11/05/2015 [facility] HEMATOLOGY Basophils 0.7 0.0 - 1.0 11/05/2015 [facility] HEMATOLOGY Lymphocytes 29.7 20.0 - 40.0 11/05/2015 [facility] HEMATOLOGY Eosinophils 7.7 0.0 - 4.0 11/05/2015 [facility] HEMATOLOGY Monocytes 9.8 2.0 - 12.0 11/05/2015 [facility] HEMATOLOGY Platelet 108 133 - 450 11/05/2015 [facility] HEMATOLOGY MPV 9.0 7.4 - 10.4 11/05/2015 [facility] HEMATOLOGY MCHC 32.2 32.0 - 36.0 11/05/2015 [facility] HEMATOLOGY MCH 26.4 27.0 - 31.0 11/05/2015 [facility] HEMATOLOGY RDW 16.3 11.5 - 14.5 11/05/2015 [facility] HEMATOLOGY Hgb 8.5 14.0 - 18.0 11/05/2015 [facility] HEMATOLOGY MCV 82.1 80.0 - 94.0 11/05/2015 [facility] HEMATOLOGY Hct 26.4 42.0 - 54.0 11/05/2015 [facility] HEMATOLOGY WBC 5.8 3.7 - 10.4 11/05/2015 [facility] HEMATOLOGY RBC 3.22 4.70 - 6.10 11/05/2015 [facility] ELECTROLYTES Sodium Lvl 139 135 - 145 11/04/2015 [facility] ELECTROLYTES Glucose Lvl 138 70 - 99 11/04/2015 [facility] ELECTROLYTES Potassium Lvl 4.0 3.5 - 5.1 11/04/2015 [facility] ELECTROLYTES Calcium Lvl 8.2 8.5 - 10.5 11/04/2015 [facility] ELECTROLYTES Chloride Lvl 102 95 - 109 11/04/2015 [facility] ELECTROLYTES BUN 19 7 - 22 11/04/2015 [facility] ELECTROLYTES Phosphorus 3.6 2.5 - 4.5 11/04/2015 [facility] ELECTROLYTES eGFR 37 11/04/2015 Result Comment: The eGFR is calculated using the [...] from the National Kidney Disease Education Program (NKDEP) which additionally recommends that when the eGFR is used in patients with extremes of body mass index for purposes of drug dosing, the eGFR should be multiplied by the estimated BMI. [facility] ELECTROLYTES Albumin Lvl 2.6 3.5 - 5.0 11/04/2015 [facility] ELECTROLYTES CO2 30 24 - 32 11/04/2015 [facility] ELECTROLYTES Creatinine Lvl 2.2 1 0.50 - 1.40 11/04/2015 [facility] ELECTROLYTES AGAP 11.0 10.0 - 20.0 11/04/2015 [facility] HEMATOLOGY Hgb 8.9 14.0 - 18.0 11/04/2015 [facility] HEMATOLOGY RBC 3.31 4.70 - 6.10 11/04/2015 [facility] HEMATOLOGY WBC 6.7 3.7 - 10.4 11/04/2015 [facility] HEMATOLOGY RDW 16.2 11.5 - 14.5 11/04/2015 [facility] HEMATOLOGY Platelet 109 133 - 450 11/04/2015 [facility] HEMATOLOGY MCV 82.6 80.0 - 94.0 11/04/2015 [facility] HEMATOLOGY MCHC 32.5 32.0 - 36.0 11/04/2015 [facility] HEMATOLOGY MCH 26.8 27.0 - 31.0 11/04/2015 [facility] HEMATOLOGY Hct 27.4 42.0 - 54.0 11/04/2015 [facility] HEMATOLOGY MPV 9.3 7.4 - 10.4 11/04/2015 [facility] HEMATOLOGY Basophils # 0.0 0.0 - 0.2 11/04/2015 [facility] HEMATOLOGY Lymphocytes 24.0 20.0 - 40.0 11/04/2015 [facility] HEMATOLOGY Monocytes 11.7 2.0 - 12.0 11/04/2015 [facility] HEMATOLOGY Eosinophils 6.1 0.0 - 4.0 11/04/2015 [facility] HEMATOLOGY Segs 57.6 45.0 - 75.0 11/04/2015 [facility] HEMATOLOGY Eosinophils # 0.4 0.0 - 0.5 11/04/2015 [facility] HEMATOLOGY Segs-Bands # 3.8 1.5 - 8.1 11/04/2015 [facility] HEMATOLOGY Monocytes # 0.8 0.0 - 0.8 11/04/2015 [facility] HEMATOLOGY Lymphocytes # 1.6 1.0 - 5.5 11/04/2015 [facility] HEMATOLOGY Basophils 0.6 0.0 - 1.0 11/04/2015 [facility] CHEM PANEL Magnesium Lvl 1.8 1.8 - 2.4 11/02/2015 [facility] CHEM PANEL Phosphorus 5.6 2.5 - 4.5 11/02/2015 [facility] HEMATOLOGY PTT 36.7 22.9 - 35.8 11/02/2015 [facility] HEMATOLOGY PT 16.1 12.0 - 14.7 11/02/2015 [facility] HEMATOLOGY INR 1.26 0.85 - 1.17 11/02/2015 [facility] HEMATOLOGY Basophils # 0.0 0.0 - 0.2 11/02/2015 [facility] IMMUNOLOGY Hep Bs Ag Negat lolis *NA* (11/02/15 4:48 AM) Negative 11/02/2015 [facility] CARDIAC ENZYMES CK MB Index 8.3 0.0 - 2.5 11/01/2015 [facility] CARDIAC ENZYMES Total CK 98 12 - 191 11/01/2015 [facility] CARDIAC ENZYMES Troponin-I 0.05 0.00 - 0.40 11/01/2015 [facility] CARDIAC ENZYMES CK MB 8.1 0.5 - 3.6 11/01/2015 [facility] CHEM PANEL ALT 35 0 - 65 11/01/2015 [facility] CHEM PANEL Total Protein 7.7 6.4 - 8.4 11/01/2015 [facility] CHEM PANEL AST 30 0 - 37 11/01/2015 [facility] CHEM PANEL Bili Total 0.5 0.2 - 1.3 11/01/2015 [facility] CHEM PANEL Alk Phos 128 39 - 136 11/01/2015 [facility] CHEM PANEL A/G Ratio 0.5 0.7 - 1.6 11/01/2015 [facility] CHEM PANEL Globulin 5.1 2.7 - 4.2 11/01/2015 [facility] CHEM PANEL B/C Ratio 13 6 - 25 11/01/2015 [facility] CHEM PANEL Albumin Lvl 2.6 3.5 - 5.0 11/01/2015 [facility] HEMATOLOGY Basophils # 0.1 0.0 - 0.2 11/01/2015 [facility] ELECTROLYTES Potassium Lvl 5.5 3.5 - 5.1 10/28/2015 [facility] ELECTROLYTES Chloride Lvl 102 95 - 109 10/28/2015 [facility] ELECTROLYTES Creatinine Lvl 3.9 0 0.50 - 1.40 10/28/2015 [facility] ELECTROLYTES Sodium Lvl 139 135 - 145 10/28/2015 [facility] ELECTROLYTES CO2 27 24 - 32 10/28/2015 [facility] ELECTROLYTES Glucose Lvl 217 70 - 99 10/28/2015 [facility] ELECTROLYTES BUN 62 7 - 22 10/28/2015 [facility] ELECTROLYTES Globulin 5.5 2.0 - 4.0 10/28/2015 [facility] ELECTROLYTES Alk Phos 145 39 - 136 10/28/2015 [facility] ELECTROLYTES A/G Ratio 0.5 0.7 - 1.6 10/28/2015 [facility] ELECTROLYTES AST 47 0 - 37 10/28/2015 [facility] ELECTROLYTES ALT 46 0 - 65 10/28/2015 [facility] ELECTROLYTES AGAP 15.5 10.0 - 20.0 10/28/2015 [facility] ELECTROLYTES Albumin Lvl 2.8 3.5 - 5.0 10/28/2015 [facility] ELECTROLYTES Calcium Lvl 8.4 8.5 - 10.5 10/28/2015 [facility] ELECTROLYTES Total Protein 8.3 6.4 - 8.4 10/28/2015 [facility] ELECTROLYTES B/C Ratio 16 6 - 25 10/28/2015 [facility] ELECTROLYTES eGFR 19 10/28/2015 Result Comment: The eGFR is calculated using the [...] from the National Kidney Disease Education Program (NKDEP) which additionally recommends that when the eGFR is used in patients with extremes of body mass index for purposes of drug dosing, the eGFR should be multiplied by the estimated BMI. [facility] ELECTROLYTES Bili Total 0.6 0.2 - 1.3 10/28/2015 [facility] CHEM PANEL eGFR 21 10/27/2015 Result Comment: The eGFR is calculated using the [...] from the National Kidney Disease Education Program (NKDEP) which additionally recommends that when the eGFR is used in patients with extremes of body mass index for purposes of drug dosing, the eGFR should be multiplied by the estimated BMI. [facility] CHEM PANEL Potassium Lvl 5.8 3.5 - 5.1 10/27/2015 [facility] CHEM PANEL Sodium Lvl 136 135 - 145 10/27/2015 [facility] CHEM PANEL Creatinine Lvl 3.56 0.50 - 1.40 10/27/2015 [facility] CHEM PANEL BUN 57 7 - 22 10/27/2015 [facility] CHEM PANEL AGAP 12.8 10.0 - 20.0 10/27/2015 [facility] CHEM PANEL Calcium Lvl 8.7 8.5 - 10.5 10/27/2015 [facility] CHEM PANEL CO2 26 24 - 32 10/27/2015 [facility] CHEM PANEL Chloride Lvl 103 95 - 109 10/27/2015 [facility] CHEM PANEL Glucose Lvl 156 70 - 99 10/27/2015 [facility] CHEM PANEL eGFR 27 10/26/2015 Result Comment: The eGFR is calculated using the [...] from the National Kidney Disease Education Program (NKDEP) which additionally recommends that when the eGFR is used in patients with extremes of body mass index for purposes of drug dosing, the eGFR should be multiplied by the estimated BMI. [facility] CHEM PANEL Calcium Lvl 8.2 8.5 - 10.5 10/26/2015 [facility] CHEM PANEL AGAP 12.1 10.0 - 20.0 10/26/2015 [facility] CHEM PANEL Potassium Lvl 5.1 3.5 - 5.1 10/26/2015 [facility] CHEM PANEL Sodium Lvl 139 135 - 145 10/26/2015 [facility] CHEM PANEL Chloride Lvl 103 95 - 109 10/26/2015 [facility] CHEM PANEL CO2 29 24 - 32 10/26/2015 [facility] CHEM PANEL BUN 41 7 - 22 10/26/2015 [facility] CHEM PANEL Creatinine Lvl 2.88 0.50 - 1.40 10/26/2015 [facility] CHEM PANEL Glucose Lvl 54 70 - 99 10/26/2015 [facility] CARDIAC ENZYMES Troponin-I 0.11 0.00 - 0.40 10/24/2015 [facility] CARDIAC ENZYMES CK MB 8.2 0.5 - 3.6 10/24/2015 [facility] CARDIAC ENZYMES Total CK 76 12 - 191 10/24/2015 [facility] IMMUNOLOGY Hep Bs Ab <3.1 <=7.4 mIU/mL 10/24/2015 [facility] IMMUNOLOGY Hep B Core Ab Negat lolis *NA* (10/24/15 1:01 PM) Negative 10/24/2015 [facility] CARDIAC ENZYMES Troponin-I 0.10 0.00 - 0.40 10/24/2015 [facility] CARDIAC ENZYMES CK MB 10.3 0.5 - 3.6 10/24/2015 [facility] CARDIAC ENZYMES Total CK 81 12 - 191 10/24/2015 [facility] CHEM PANEL Phosphorus 3.7 2.5 - 4.5 10/22/2015 [facility] CHEM PANEL Magnesium Lvl 1.8 1.8 - 2.4 10/22/2015 [facility] HEMATOLOGY Lymphocytes # 1.8 1.0 - 5.5 10/22/2015 [facility] HEMATOLOGY Segs-Bands # 7.4 1.5 - 8.1 10/22/2015 [facility] HEMATOLOGY Monocytes # 0.8 0.0 - 0.8 10/22/2015 [facility] HEMATOLOGY Eosinophils # 0.9 0.0 - 0.5 10/22/2015 [facility] HEMATOLOGY Eosinophils 8.0 0.0 - 4.0 10/22/2015 [facility] HEMATOLOGY Monocytes 7.4 2.0 - 12.0 10/22/2015 [facility] HEMATOLOGY Basophils 0.3 0.0 - 1.0 10/22/2015 [facility] HEMATOLOGY Lymphocytes 16.4 20.0 - 40.0 10/22/2015 [facility] HEMATOLOGY Segs 67.9 45.0 - 75.0 10/22/2015 [facility] HEMATOLOGY MPV 8.9 7.4 - 10.4 10/22/2015 [facility] HEMATOLOGY MCHC 31.8 32.0 - 36.0 10/22/2015 [facility] HEMATOLOGY MCH 26.4 27.0 - 31.0 10/22/2015 [facility] HEMATOLOGY MCV 83.1 80.0 - 94.0 10/22/2015 [facility] HEMATOLOGY Platelet 197 133 - 450 10/22/2015 [facility] HEMATOLOGY RDW 17.2 11.5 - 14.5 10/22/2015 [facility] HEMATOLOGY WBC 10.8 3.7 - 10.4 10/22/2015 [facility] HEMATOLOGY Hgb 9.5 14.0 - 18.0 10/22/2015 [facility] HEMATOLOGY RBC 3.61 4.70 - 6.10 10/22/2015 [facility] HEMATOLOGY Hct 30.0 42.0 - 54.0 10/22/2015 [facility] [facility] IMMUNOLOGY Hep Bs Ag Negat lolis *NA* (10/21/15 11:35 AM) Negative 10/21/2015 [facility] CARDIAC ENZYMES Total CK 79 12 - 191 10/21/2015 [facility] CARDIAC ENZYMES Troponin-I 0.09 0.00 - 0.40 10/21/2015 [facility] CARDIAC ENZYMES CK MB 8.6 0.5 - 3.6 10/21/2015 [facility] CARDIAC ENZYMES CK MB Index 10.9 0.0 - 2.5 10/21/2015 [facility] HEMATOLOGY MCHC 30.3 32.0 - 36.0 10/21/2015 [facility] HEMATOLOGY MCH 25.9 27.0 - 31.0 10/21/2015 [facility] HEMATOLOGY MPV 8.7 7.4 - 10.4 10/21/2015 [facility] HEMATOLOGY Platelet 199 133 - 450 10/21/2015 [facility] HEMATOLOGY RDW 17.5 11.5 - 14.5 10/21/2015 [facility] HEMATOLOGY WBC 11.4 3.7 - 10.4 10/21/2015 [facility] HEMATOLOGY RBC 3.67 4.70 - 6.10 10/21/2015 [facility] HEMATOLOGY MCV 85.4 80.0 - 94.0 10/21/2015 [facility] HEMATOLOGY Hct 31.3 42.0 - 54.0 10/21/2015 [facility] HEMATOLOGY Hgb 9.5 14.0 - 18.0 10/21/2015 [facility] HEMATOLOGY Monocytes # 1.3 0.0 - 0.8 10/21/2015 [facility] HEMATOLOGY Segs-Bands # 7.5 1.5 - 8.1 10/21/2015 [facility] HEMATOLOGY Lymphocytes # 1.9 1.0 - 5.5 10/21/2015 [facility] HEMATOLOGY Eosinophils 5.9 0.0 - 4.0 10/21/2015 [facility] HEMATOLOGY Basophils 0.6 0.0 - 1.0 10/21/2015 [facility] HEMATOLOGY Lymphocytes 16.5 20.0 - 40.0 10/21/2015 [facility] HEMATOLOGY Monocytes 11.0 2.0 - 12.0 10/21/2015 [facility] HEMATOLOGY Segs 66.0 45.0 - 75.0 10/21/2015 [facility] HEMATOLOGY Basophils # 0.1 0.0 - 0.2 10/21/2015 [facility] HEMATOLOGY Eosinophils # 0.7 0.0 - 0.5 10/21/2015 [facility] LIPIDS CHD Risk 2.11 4.00 - 7.30 10/21/2015 [facility] LIPIDS LDL (Calculated) 52 <=99 mg/dL 10/21/2015 [facility] LIPIDS Trig 39 <=149 mg/dL 10/21/2015 [facility] LIPIDS Chol 114 <=199 mg/dL 10/21/2015 [facility] LIPIDS HDL 54 >=61 mg/dL 10/21/2015 [facility] LIPIDS VLDL 8 10/21/2015 [facility] CARDIAC ENZYMES CK MB Index 10.2 0.0 - 2.5 10/21/2015 [facility] DRUG SCREEN U Amph Scr Nega tive *NA* (10/21/15 1:23 AM) Negative 10/21/2015 [facility] DRUG SCREEN UDS Note See Note (10/21/15 1:23 AM) 10/21/2015 [facility] DRUG SCREEN U Phencyc Scr Nega tive *NA* (10/21/15 1:23 AM) Negative 10/21/2015 [facility] DRUG SCREEN U Cannab Scr Nega tive *NA* (10/21/15 1:23 AM) Negative 10/21/2015 [facility] DRUG SCREEN U Cocaine Scr Posi tive *ABN* (10/21/15 1:23 AM) Negative 10/21/2015 [facility] DRUG SCREEN U Benzodia Scr Nega tive *NA* (10/21/15 1:23 AM) Negative 10/21/2015 [facility] DRUG SCREEN U Dang Scr Nega tive *NA* (10/21/15 1:23 AM) Negative 10/21/2015 [facility] DRUG SCREEN U Opiate Scr Posi tive *ABN* (10/21/15 1:23 AM) Negative 10/21/2015 [facility] CARDIAC ENZYMES CK MB Index 8.3 0.0 - 2.5 10/20/2015 [facility] CARDIAC ENZYMES BNP 1198 <=100 pg/mL 10/20/2015 [facility] CHEM PANEL Bili Total 0.6 0.2 - 1.3 10/20/2015 [facility] CHEM PANEL B/C Ratio 21 6 - 25 10/20/2015 [facility] CHEM PANEL A/G Ratio 0.5 0.7 - 1.6 10/20/2015 [facility] CHEM PANEL AST 29 0 - 37 10/20/2015 [facility] CHEM PANEL Alk Phos 124 39 - 136 10/20/2015 [facility] CHEM PANEL ALT 36 0 - 65 10/20/2015 [facility] CHEM PANEL Globulin 5.5 2.0 - 4.0 10/20/2015 [facility] CHEM PANEL Total Protein 8.0 6.4 - 8.4 10/20/2015 [facility] CHEM PANEL Albumin Lvl 2.5 3.5 - 5.0 10/20/2015 [facility] HEMATOLOGY Eosinophils # 0.4 0.0 - 0.5 10/20/2015 [facility] HEMATOLOGY Monocytes # 0.9 0.0 - 0.8 10/20/2015 [facility] HEMATOLOGY Lymphocytes # 1.7 1.0 - 5.5 10/20/2015 [facility] HEMATOLOGY Segs-Bands # 8.0 1.5 - 8.1 10/20/2015 [facility] HEMATOLOGY Basophils 0.8 0.0 - 1.0 10/20/2015 [facility] HEMATOLOGY Basophils # 0.1 0.0 - 0.2 10/20/2015 [facility] HEMATOLOGY Lymphocytes 15.4 20.0 - 40.0 10/20/2015 [facility] HEMATOLOGY Segs 71.5 45.0 - 75.0 10/20/2015 [facility] HEMATOLOGY Eosinophils 3.9 0.0 - 4.0 10/20/2015 [facility] HEMATOLOGY Monocytes 8.4 2.0 - 12.0 10/20/2015 [facility] HEMATOLOGY PTT 32.9 22.9 - 35.8 10/20/2015 [facility] HEMATOLOGY PT 16.6 12.0 - 14.7 10/20/2015 [facility] HEMATOLOGY INR 1.31 0.85 - 1.17 10/20/2015 [facility] HEMATOLOGY WBC 11.2 3.7 - 10.4 10/20/2015 [facility] HEMATOLOGY Hct 30.8 42.0 - 54.0 10/20/2015 [facility] HEMATOLOGY Hgb 9.6 14.0 - 18.0 10/20/2015 [facility] HEMATOLOGY RBC 3.67 4.70 - 6.10 10/20/2015 [facility] HEMATOLOGY MCV 83.9 80.0 - 94.0 10/20/2015 [facility] HEMATOLOGY MCH 26.1 27.0 - 31.0 10/20/2015 [facility] HEMATOLOGY Platelet 225 133 - 450 10/20/2015 [facility] HEMATOLOGY MCHC 31.1 32.0 - 36.0 10/20/2015 [facility] HEMATOLOGY RDW 17.6 11.5 - 14.5 10/20/2015 [facility] HEMATOLOGY MPV 8.9 7.4 - 10.4 10/20/2015 [facility] CHEM PANEL eGFR 39 05/20/2015 Result Comment: The eGFR is calculated using the [...] from the National Kidney Disease Education Program (NKDEP) which additionally recommends that when the eGFR is used in patients with extremes of body mass index for purposes of drug dosing, the eGFR should be multiplied by the estimated BMI. [facility] CHEM PANEL Sodium Lvl 141 135 - 145 05/20/2015 [facility] CHEM PANEL Potassium Lvl 4.8 3.5 - 5.1 05/20/2015 [facility] CHEM PANEL Creatinine Lvl 2.10 0.50 - 1.40 05/20/2015 [facility] CHEM PANEL Chloride Lvl 109 95 - 109 05/20/2015 [facility] CHEM PANEL Calcium Lvl 8.3 8.5 - 10.5 05/20/2015 [facility] CHEM PANEL CO2 29 24 - 32 05/20/2015 [facility] CHEM PANEL BUN 47 7 - 22 05/20/2015 [facility] CHEM PANEL Glucose Lvl 155 70 - 99 05/20/2015 [facility] CHEM PANEL AGAP 7.8 10.0 - 20.0 05/20/2015 [facility] CHEM PANEL Phosphorus 4.5 2.5 - 4.5 05/20/2015 [facility] CHEM PANEL Magnesium Lvl 2.1 1.8 - 2.4 05/20/2015 [facility] HEMATOLOGY Basophils # 0.1 0.0 - 0.2 05/20/2015 [facility] HEMATOLOGY Lymphocytes # 2.0 1.0 - 5.5 05/20/2015 [facility] HEMATOLOGY Eosinophils # 1.1 0.0 - 0.5 05/20/2015 [facility] HEMATOLOGY Monocytes # 1.2 0.0 - 0.8 05/20/2015 [facility] HEMATOLOGY Segs 58.5 45.0 - 75.0 05/20/2015 [facility] HEMATOLOGY Basophils 1.1 0.0 - 1.0 05/20/2015 [facility] HEMATOLOGY Segs-Bands # 6.3 1.5 - 8.1 05/20/2015 [facility] HEMATOLOGY Lymphocytes 19.1 20.0 - 40.0 05/20/2015 [facility] HEMATOLOGY Monocytes 11.2 2.0 - 12.0 05/20/2015 [facility] HEMATOLOGY Eosinophils 10.1 0.0 - 4.0 05/20/2015 [facility] HEMATOLOGY MPV 8.0 7.4 - 10.4 05/20/2015 [facility] HEMATOLOGY Platelet 406 133 - 450 05/20/2015 [facility] HEMATOLOGY WBC 10.7 3.7 - 10.4 05/20/2015 [facility] HEMATOLOGY RDW 14.8 11.5 - 14.5 05/20/2015 [facility] HEMATOLOGY MCV 86.9 80.0 - 94.0 05/20/2015 [facility] HEMATOLOGY MCH 28.2 27.0 - 31.0 05/20/2015 [facility] HEMATOLOGY MCHC 32.5 32.0 - 36.0 05/20/2015 [facility] HEMATOLOGY RBC 3.00 4.70 - 6.10 05/20/2015 [facility] HEMATOLOGY Hgb 8.5 14.0 - 18.0 05/20/2015 [facility] HEMATOLOGY Hct 26.1 42.0 - 54.0 05/20/2015 [facility] CHEM PANEL Phosphorus 4.0 2.5 - 4.5 05/19/2015 [facility] CHEM PANEL Magnesium Lvl 2.0 1.8 - 2.4 05/19/2015 [facility] ELECTROLYTES CO2 28 24 - 32 05/19/2015 [facility] ELECTROLYTES Calcium Lvl 7.8 8.5 - 10.5 05/19/2015 [facility] ELECTROLYTES eGFR 36 05/19/2015 Result Comment: The eGFR is calculated using the [...] from the National Kidney Disease Education Program (NKDEP) which additionally recommends that when the eGFR is used in patients with extremes of body mass index for purposes of drug dosing, the eGFR should be multiplied by the estimated BMI. [facility] ELECTROLYTES Sodium Lvl 140 135 - 145 05/19/2015 [facility] ELECTROLYTES Potassium Lvl 5.1 3.5 - 5.1 05/19/2015 [facility] ELECTROLYTES Chloride Lvl 107 95 - 109 05/19/2015 [facility] ELECTROLYTES Glucose Lvl 165 70 - 99 05/19/2015 [facility] ELECTROLYTES Creatinine Lvl 2.2 9 0.50 - 1.40 05/19/2015 [facility] ELECTROLYTES BUN 46 7 - 22 05/19/2015 [facility] ELECTROLYTES AGAP 10.1 10.0 - 20.0 05/19/2015 [facility] HEMATOLOGY Monocytes 9.9 2.0 - 12.0 05/19/2015 [facility] HEMATOLOGY Lymphocytes 16.0 20.0 - 40.0 05/19/2015 [facility] HEMATOLOGY Segs 60.2 45.0 - 75.0 05/19/2015 [facility] HEMATOLOGY Eosinophils # 1.5 0.0 - 0.5 05/19/2015 [facility] HEMATOLOGY Basophils # 0.1 0.0 - 0.2 05/19/2015 [facility] HEMATOLOGY Basophils 1.1 0.0 - 1.0 05/19/2015 [facility] HEMATOLOGY Lymphocytes # 1.8 1.0 - 5.5 05/19/2015 [facility] HEMATOLOGY Monocytes # 1.1 0.0 - 0.8 05/19/2015 [facility] HEMATOLOGY Segs-Bands # 6.9 1.5 - 8.1 05/19/2015 [facility] HEMATOLOGY Eosinophils 12.8 0.0 - 4.0 05/19/2015 [facility] HEMATOLOGY MCHC 32.6 32.0 - 36.0 05/19/2015 [facility] HEMATOLOGY RDW 14.4 11.5 - 14.5 05/19/2015 [facility] HEMATOLOGY Platelet 358 133 - 450 05/19/2015 [facility] HEMATOLOGY MCH 28.3 27.0 - 31.0 05/19/2015 [facility] HEMATOLOGY MPV 8.2 7.4 - 10.4 05/19/2015 [facility] HEMATOLOGY WBC 11.4 3.7 - 10.4 05/19/2015 [facility] HEMATOLOGY RBC 2.84 4.70 - 6.10 05/19/2015 [facility] HEMATOLOGY MCV 87.0 80.0 - 94.0 05/19/2015 [facility] HEMATOLOGY Hgb 8.0 14.0 - 18.0 05/19/2015 [facility] HEMATOLOGY Hct 24.7 42.0 - 54.0 05/19/2015 [facility] CHEM PANEL Magnesium Lvl 2.1 1.8 - 2.4 05/18/2015 [facility] CHEM PANEL Phosphorus 4.4 2.5 - 4.5 05/18/2015 [facility] ELECTROLYTES AGAP 10.8 10.0 - 20.0 05/18/2015 [facility] ELECTROLYTES eGFR 36 05/18/2015 Result Comment: The eGFR is calculated using the [...] from the National Kidney Disease Education Program (NKDEP) which additionally recommends that when the eGFR is used in patients with extremes of body mass index for purposes of drug dosing, the eGFR should be multiplied by the estimated BMI. [facility] ELECTROLYTES Sodium Lvl 142 135 - 145 05/18/2015 [facility] ELECTROLYTES Chloride Lvl 107 95 - 109 05/18/2015 [facility] ELECTROLYTES Creatinine Lvl 2.2 9 0.50 - 1.40 05/18/2015 [facility] ELECTROLYTES Potassium Lvl 4.8 3.5 - 5.1 05/18/2015 [facility] ELECTROLYTES BUN 45 7 - 22 05/18/2015 [facility] ELECTROLYTES Glucose Lvl 198 70 - 99 05/18/2015 [facility] ELECTROLYTES Calcium Lvl 8.3 8.5 - 10.5 05/18/2015 [facility] ELECTROLYTES CO2 29 24 - 32 05/18/2015 [facility] HEMATOLOGY WBC 11.2 3.7 - 10.4 05/18/2015 [facility] HEMATOLOGY RBC 2.68 4.70 - 6.10 05/18/2015 [facility] HEMATOLOGY RDW 14.4 11.5 - 14.5 05/18/2015 [facility] HEMATOLOGY Platelet 315 133 - 450 05/18/2015 [facility] HEMATOLOGY MPV 7.7 7.4 - 10.4 05/18/2015 [facility] HEMATOLOGY Hgb 7.7 14.0 - 18.0 05/18/2015 [facility] HEMATOLOGY Hct 23.3 42.0 - 54.0 05/18/2015 [facility] HEMATOLOGY MCV 87.1 80.0 - 94.0 05/18/2015 [facility] HEMATOLOGY MCH 28.7 27.0 - 31.0 05/18/2015 [facility] HEMATOLOGY MCHC 32.9 32.0 - 36.0 05/18/2015 [facility] HEMATOLOGY Monocytes # 1.2 0.0 - 0.8 05/18/2015 [facility] HEMATOLOGY Basophils # 0.1 0.0 - 0.2 05/18/2015 [facility] HEMATOLOGY Eosinophils # 1.3 0.0 - 0.5 05/18/2015 [facility] HEMATOLOGY Basophils 0.8 0.0 - 1.0 05/18/2015 [facility] HEMATOLOGY Lymphocytes # 1.7 1.0 - 5.5 05/18/2015 [facility] HEMATOLOGY Segs-Bands # 6.9 1.5 - 8.1 05/18/2015 [facility] HEMATOLOGY Lymphocytes 14.9 20.0 - 40.0 05/18/2015 [facility] HEMATOLOGY Eosinophils 11.7 0.0 - 4.0 05/18/2015 [facility] HEMATOLOGY Monocytes 10.9 2.0 - 12.0 05/18/2015 [facility] HEMATOLOGY Segs 61.7 45.0 - 75.0 05/18/2015 [facility] CHEM PANEL Procalcitonin Lvl 0.47 0.00 - 0.10 05/16/2015 [facility] CARDIAC ENZYMES Troponin-I <0.02 0.00 - 0.40 05/14/2015 [facility] CHEM PANEL Procalcitonin Lvl 0.26 0.00 - 0.10 05/14/2015 [facility] MOLECULAR DIAGNOSTIC HCV RNA Log10 5.7 05/14/2015 [facility] MOLECULAR DIAGNOSTIC HCV RNA VirLoad [id number] 05/14/2015 [facility] SPECIAL CHEMISTRY Hgb A1C 6.3 <=5.6 % 05/14/2015 [facility] DRUG SCREEN UDS Note See Note (05/14/15 12:24 AM) 05/14/2015 [facility] DRUG SCREEN U Phencyc Scr Nega tive *NA* (05/14/15 12:24 AM) Negative 05/14/2015 [facility] DRUG SCREEN U Opiate Scr Posi tive *ABN* (05/14/15 12:24 AM) Negative 05/14/2015 [facility] DRUG SCREEN U Cocaine Scr Nega tive *NA* (05/14/15 12:24 AM) Negative 05/14/2015 [facility] DRUG SCREEN U Benzodia Scr Nega tive *NA* (05/14/15 12:24 AM) Negative 05/14/2015 [facility] DRUG SCREEN U Cannab Scr Nega tive *NA* (05/14/15 12:24 AM) Negative 05/14/2015 [facility] DRUG SCREEN U Dang Scr Nega tive *NA* (05/14/15 12:24 AM) Negative 05/14/2015 [facility] DRUG SCREEN U Amph Scr Nega tive *NA* (05/14/15 12:24 AM) Negative 05/14/2015 [facility] URINE AND STOOL UA Sq Epi Rare /LPF Few /LPF 05/14/2015 [facility] URINE AND STOOL UA WBC 3-5 /HPF None Seen /HPF 05/14/2015 [facility] URINE AND STOOL UA RBC 3-5 /HPF 0 - 2 05/14/2015 [facility] URINE AND STOOL UA Mucus Rare /LPF None Seen /LPF 05/14/2015 [facility] URINE AND STOOL UA Bacteria Occasional /HPF None Seen /HPF 05/14/2015 [facility] URINE AND STOOL UA Spec Grav 1.020 <=1.030 05/14/2015 [facility] URINE AND STOOL UA Turbidity Clear (05/14/15 12:24 AM) Clear 05/14/2015 [facility] URINE AND STOOL UA Blood Small *ABN* (05/14/15 12:24 AM) Negative 05/14/2015 [facility] URINE AND STOOL UA Bili Negative *NA* (05/14/15 12:24 AM) Negative 05/14/2015 [facility] URINE AND STOOL UA Ketones Negative *NA* (05/14/15 12:24 AM) Negative 05/14/2015 [facility] URINE AND STOOL UA Glucose Negative (05/14/15 12:24 AM) Negative 05/14/2015 [facility] URINE AND STOOL UA Nitrite Negative (05/14/15 12:24 AM) Negative 05/14/2015 [facility] URINE AND STOOL UA Urobilinogen 0.2 0.1 - 1.0 05/14/2015 [facility] URINE AND STOOL UA pH 7.5 5.0 - 8.0 05/14/2015 [facility] URINE AND STOOL UA Protein 100 mg/dL Negative mg/dL 05/14/2015 [facility] URINE AND STOOL UA Leuk Est Negative (05/14/15 12:24 AM) Negative 05/14/2015 [facility] URINE AND STOOL UA Color Yellow *NA* (05/14/15 12:24 AM) Yellow 05/14/2015 [facility] HEMATOLOGY PTT 32.6 22.9 - 35.8 05/14/2015 [facility] HEMATOLOGY INR 1.08 0.85 - 1.17 05/14/2015 [facility] HEMATOLOGY PT 14.3 12.0 - 14.7 05/14/2015 [facility] CARDIAC ENZYMES Troponin-I 0.02 0.00 - 0.40 05/14/2015 [facility] CHEM PANEL Lipase Lvl 63 73 - 393 05/14/2015 [facility] CHEM PANEL Globulin 5.3 2.0 - 4.0 05/14/2015 [facility] CHEM PANEL A/G Ratio 0.4 0.7 - 1.6 05/14/2015 [facility] CHEM PANEL Bili Indirect 0.2 0.0 - 1.0 05/14/2015 [facility] CHEM PANEL Albumin Lvl 2.3 3.5 - 5.0 05/14/2015 [facility] CHEM PANEL Total Protein 7.6 6.4 - 8.4 05/14/2015 [facility] CHEM PANEL Bili Direct 0.2 0.0 - 0.3 05/14/2015 [facility] CHEM PANEL ALT 35 0 - 65 05/14/2015 [facility] CHEM PANEL Bili Total 0.4 0.2 - 1.3 05/14/2015 [facility] CHEM PANEL Alk Phos 570 39 - 136 05/14/2015 [facility] CHEM PANEL AST 44 0 - 37 05/14/2015 [facility] CHEM PANEL Lactic Acid Lvl 1.3 0.5 - 2.2 05/14/2015 [facility] CARDIAC ENZYMES BNP 970 <=100 pg/mL 05/14/2015 [facility] Pathology Reports No Data Provided for This Section Diagnostic Reports Report Value Date Source Chest wo contrast CT EXAM: CT chest without IV contrast INDICATION: Epigastric pain, cough, reflux, evaluate for pneumonia or infiltrate COMPARISON: Chest radiograph performed on same day, 08/08/2016 CT chest Technique: Axial CT images through the chest were obtained without IV contrast. Coronal and sagittal reformats were obtained. CT Radiation Dose DLP 422.2 mGy-cm FINDINGS: Tiny left pleural effusion is present with overlying atelectasis involving the left lower lobe. Somewhat nodular consolidative opacity is present in the left lower lobe adjacent to the pleura and the fissure (series 4 image 27). Masslike component adjacent to the fissure on series 4 image 28 measures 1.9 x 1.8 cm. This is relatively unchanged compared to prior study. There is moderate atelectatic collapse of the right middle lobe as well. No convincing evidence for pneumonia. Lung apices are clear. No pneumothorax identified. No endobronchial abnormalities identified. No threshold enlarged hilar, mediastinal, or axillary lymph nodes identified. No cardiomegaly or pericardial effusion. Main pulmonary artery and thoracic aorta are normal in caliber. Nonenhanced liver, spleen, adrenal glands, and pancreas are within normal limits. Gallbladder is relatively collapsed. No hydroureteronephrosis identified. 2.2 cm right and 2.1 cm left renal cysts are present. Remaining visualized upper abdominal organs are within normal limits. No suspicious lytic or blastic osseous lesions evident. IMPRESSION: Tiny left pleural effusion with overlying pleural thickening. Curvilinear consolidative opacity in the superior left upper lobe adjacent to the fissure is similar to 08/08/2016 study and is thought to more likely represent chronic scarring/atelectasis. Malignancy and infection are less likely considerations. Follow-up CT chest in 3-6 months is recommended to exclude the small possibility of malignancy. Moderate atelectasis of the right middle lobe. No convincing evidence for pneumonia. SL: [id number] 07/07/2017 [facility] Chest 1view DX Clinical Indica tion: - chest pain, did not finish dialysis. Comparison: 12/30/2016. FINDINGS: AP chest radiograph was obtained. MEDIASTINUM: The cardiac silhouette is normal in size. The aorta is unremarkable. LUNGS: Trace bilateral pleural effusions with bilateral lower lung zone opacities. No pneumothorax. OTHER: No acute osseous abnormalities. IMPRESSION: Bibasilar atelectasis versus infiltrate with trace effusions. SL: [id number] 07/07/2017 [facility] Chest 1view DX Chest 1view DX CLINICAL HISTORY: - sob COMPARISON: 12/29/2016 FINDINGS/IMPRESSION: Limited AP portable study. Support Lines/Devices: none Lungs: Loculated pleural effusion and/or pleural thickening at the left lung base persists without significant change. Pleural and parenchymal opacities in the right mid to lower lung zone unchanged. Cardiomediastinum: Cardiomediastinal silhouette is stable. Bone and Soft Tissues: No acute bony abnormality is evident. Multiple EKG leads and other wires project over the patient's chest. No significant change from previous study is noted. SL: [id number] 12/30/2016 [facility] Chest 1view DX Study: Chest 1v iew DX portable 12/29/2016 1214 hours Clinical Indication: ams, confusion, end-stage renal disease Comparison: Chest 08/17/2016 FINDINGS: The cardiac silhouette is moderately enlarged. There is a small to moderate size left pleural effusion. Pleural and pulmonary scarring at the base the right hemithorax may be associated a small effusion. The upper lobes are clear, and no vascular congestion is seen. SL: [id number] 12/29/2016 [facility] Esophagus BA swallow function video DX Patient Name: JAYJAY JENNINGS : 1960; Age: 55 years y/o Male MR: [id number] Study: Esophagus BA swallow function video DX 08/18/2016 7:00 AM CDT Ordering Physician: Rafaela Ramirez MD Clinical Indication: Feeding difficulties / FT = 1.2 min - Dysphagia; Comparison: None Fluoroscopic assistance was provided as the patient swallowed thin barium, pudding, and crackers. No laryngeal penetration or tracheal aspiration was identified when the patient swallowed these substances. Please see speech pathology report. SL: [id number] 08/18/2016 [facility] Chest 2 views DX Patient Name: JAYJAY JENNINGS : 1960; Age: 55 years Male MR: [id number] Study: Chest 2 views DX Order Time: 08/17/2016 3:00 AM CDT CLINICAL INDICATION: Chest tube removal COMPARISON: Chest radiograph on 08/16/2016 FINDINGS: Lines: None. Lungs: Stable small to moderate bilateral pleural effusions. The bilateral airspace and interstitial opacities have slightly increased. No pneumothorax. Mediastinum: The cardiac silhouette is mildly enlarged. Midline trachea. Bones and soft tissues: No acute abnormalities. IMPRESSION: Slight increase in the bilateral pulmonary opacities when compared to 08/16/2016, which may represent worsening pulmonary edema or pneumonia. SL: [id number] 08/17/2016 [facility] Chest 1view DX Study: Chest 1v iew DX Clinical Indication: - CT removal Comparison: Chest x-ray from 08/15/2016 FINDINGS: Previously noted right-sided chest tube has been removed. Cardiac silhouette is mildly prominent. Small bilateral pleural effusions are stable. No pneumothorax is seen. The osseous structures are unremarkable. IMPRESSION: Interval removal of right-sided chest tube. No pneumothorax is seen. SL: [id number] 08/16/2016 [facility] 1view DX Clinical Indica tion:55 years Male with - chest tube Comparison: Chest x-ray 08/14/2016 FINDINGS: Lines: Unchanged position of right chest tube The single frontal chest radiograph shows normal lung volumes. Unchanged right pleural effusion and right lower lobe airspace opacities. Unchanged layering left effusion and adjacent opacities. Right apical opacity which may be due to extension of the pleural fluid or upper lobe atelectasis. No pneumothorax. Cardiac silhouette is normal. Pulmonary vasculature is normal. The trachea is midline. There are no acute osseous abnormalities noted. IMPRESSION: 1. No change since chest x-ray 7. Next line 2. Right chest tube is in unchanged posi tion. No pneumothorax. 3. Bilateral pleural effusions and bibas ilar consolidations are unchanged. 08/15/2016 [facility] 1view Chest 1view 08/14/2016 3:00 AM CDT Ordering Physician: Randa Gong CLINICAL HISTORY: - chest tube; TECHNIQUE: AP view of the chest was obtained. COMPARISON: Prior few days FINDINGS: Persistent bilateral mid to lower lung opacities are present.. No radiographically detectable pneumothorax is present. Cardiomediastinal silhouette is unchanged. Bones are unchanged. Lifelines are stable. IMPRESSION: Persistent bilateral mid to lower lung consolidation and/or subsegmental atelectasis, with small pleural effusions. SL: [id number] 08/14/2016 [facility] 1view DX Study: Chest 1v iew DX Clinical Indication: - chest tube Comparison: Chest x-ray from 08/12/2016 FINDINGS: Right-sided chest tubes are stable. Small bilateral pleural effusions are again noted. No pneumothorax is seen. Cardiac silhouette is mildly enlarged. Previously noted nasogastric tube has been removed. The osseous structures are unremarkable. IMPRESSION: Stable small bilateral pleural effusions SL: [id number] 08/13/2016 [facility] Chest 1view DX Portable chest: The endotracheal tube is been removed since previous day. A nasogastric tube is been placed which passes into the stomach. The right pleural tube remains in place. There is no change in the bilateral atelectasis and small left basilar effusion. There is no visible pneumothorax. There are no other new findings. MELINDA DLAWRENCE-PC 08/12/2016 [facility] Abdomen 1 v for Placement DX P atient Name: JAYJAY JENNINGS : 1960; Age: 55 years y/o Male MR: [id number] * ABDOMEN, portable, 1 view 08/11/2016 @ 14:35 HISTORY: Assess nasogastric tube placement. Appears is made to a study performed earlier today. TECHNIQUE: A portable supine radiograph of the abdomen was obtained for assessment of tube placement. This is a limited study. IMPRESSION: 1. The nasogastric tube has been replace d or repositioned and now extends into the region of the gastric antrum. 2. Mild nonspecific intestinal gaseous d istention. There is no definite obstruction. SL: [id number] 08/11/2016 [facility] Abdomen 1 v for Placement DX P atient Name: JAYJAY JENNINGS : 1960; Age: 55 years y/o Male MR: [id number] * ABDOMEN, portable, 1 view 08/11/2016 @ 10:33 HISTORY: Assess nasogastric tube placement. COMPARISON: None TECHNIQUE: A portable supine radiograph of the abdomen was obtained for assessment of tube placement. This is a limited study. IMPRESSION: 1. The feeding tube is folded over on it self and kinked in the mid esophagus. The distal tube extends superiorly. The tube is malpositioned and should be replaced. The patient's I ICU charge nurse, Karen, was notified of these findings by telephone on 08/11/2016 @ 10:46 2. Mild gaseous intestinal distention which is nonspecific, possible ileus or hypomotility. : [id number] 08/11/2016 [facility] Chest 1view DX Note the result s of the case were discussed with the patients nurse, Kim Corley 5:06 AM 08/11/2016. Clinical Indication: Abnormal chest sounds Comparison: 08/10/2016 FINDINGS: HEART: Cardiomediastinal silhouette unremarkable. PULMONARY VASCULATURE: The pulmonary vasculature is unremarkable. LUNGS: Right lower lobe and perhaps left lower lobe nonspecific airspace opacity. Costophrenic sulci: -Right costophrenic sulcus: The right costophrenic sulcus is sharp without evidence for pleural effusions or thickening. -Left costophrenic sulcus: Mild blunting of the left costophrenic sulcus indicating mild pleural effusion or thickening. BONES: The visualized osseous structures are unremarkable. 2 right-sided chest tubes are suspected, one tip over the right upper lung, and the other tip over the right lung base medially. These are unchanged. ET tube tip is in satisfactory position with the tip 54 mm from the renny. IMPRESSION: 1. Right lower lobe and perhaps left low er lobe nonspecific airspace opacity. 2. Life support tube(s) in satisfactory position.. 3. Mild blunting of the left costophreni c sulcus indicating mild pleural effusion or thickening, stable. 4. 2 right-sided chest tubes are suspect ed, one tip over the right upper lung, and the other tip over the right lung base medially. These are unchanged. 5. A tiny pneumothorax in the right late ral costophrenic sulcus is suspected, stable. SL: ZURDO-LAURA 08/11/[address] DX Chest 1view DX CLINICAL HISTORY:Shortness of Breath COMPARISON: 08/09/2016 FINDINGS/IMPRESSION: Limited AP portable study. Support Lines/Devices: ET tube terminates just below the thoracic inlet approximately 3.5 cm from the renny. Lungs: Interval placement of right-sided chest tube. Near-complete evacuation of large right pleural effusion. Small ex vacuo pneumothorax is noted at the right costophrenic sulcus. Patchy parenchymal opacities are visualized in the right lung. Small left basilar effusion, unchanged. Mild patchy opacity in left lower lobe persists. Cardiomediastinum: Cardiomediastinal silhouette is stable. Bone and Soft Tissues: No acute bony abnormality is evident. Multiple EKG leads and other wires project over the patient's chest. SL: TIFFANIE 08/10/2016 [facility] DX Study: Frontal chest x-ray compared to 08/08/2016 History: Abnormal chest sounds Comments: The trachea is midline. No pneumothorax. Complete opacification of right hemithorax, similar to prior study. Small left effusion is unchanged. Impression: No change since the prior study from previous day 08/09/2016 [facility] Chest 1view DX Patient Name: Sebastian JENNINGS : 1960; Age: 55 years y/o Male MR: [id number] Study: Chest 1view DX 08/08/2016 10:30 AM CDT Ordering Physician: Clinical Indication: Pleural effusion; status post right thoracentesis Comparison: August 08, 2016 at 709 1 view chest No significant change in extensive right hemithorax opacification. Small aerated portion of right upper lobe unchanged. No pneumothorax. Pleural and parenchymal opacities obscuring left lower lobe are otherwise stable. Heart size stable. IMPRESSION: No pneumothorax noted post right thoracentesis. Note that the large right pleural effusion is multiloculated and complex, and as such could not be evacuated by thoracentesis. Thoracic surgery consultation recommended. SL: [id number] 08/08/2016 [facility] Thoracentesis wo catheter US P atient Name: JAYJYA JENNINGS : 1960; Age: 55 years y/o Male MR: [id number] Study: Thoracentesis wo catheter US 08/08/2016 9:02 AM CDT Ordering Physician: Clinical Indication: Pleural effusion with Dyspnea - R sided effusion. diagnostic and therapeutic; Comparison: CT chest same date. Right thoracentesis with sonographic guidance. Timeout performed prior to the procedure. Risks and benefits and alternatives discussed in detail with the patient who understands and agrees to proceed. Patient prepped and draped in a sterile fashion. Lidocaine was used for local anesthesia. With sonographic guidance, right thoracentesis performed. 5 Angolan trocar catheter utilized. Only 300 cc of dark brown pleural fluid could be recovered, secondary to the complex multiloculated nature of the right pleural effusion. Initial 50 cc aspirated were reserved for laboratory analysis as requested. Following thoracentesis catheter removed. Procedure well-tolerated clinically. SL: [id number] 08/08/2016 [facility] Chest wo contrast CT Patient N cheryl: JAYJAY JENNINGS : 1960; Age: 55 years y/o Male MR: [id number] Study: Chest wo contrast CT 08/08/2016 7:42 AM CDT Ordering Physician: Clinical Indication: sob, opacification of right chest - sob, opacification of right chest / DLP 482.21 mGycm; Comparison: None TECHNIQUE: Sequential trans-axial images were obtained thru the chest and upper abdomen without iodinated contrast. Oral contrast has been administered. Coronal and sagittal reconstructions were obtained. 100 cc of nonionic contrast material was used for the exam. FINDINGS: LUNG PARENCHYMA AND PLEURA: There is a very large complex appearing pleural effusion in the right hemithorax with near-complete atelectasis of the right lung. Small left pleural effusion and subjacent dependent atelectasis. AIRWAY: The central airway is normal. MEDIASTINUM: No significant mediastinal lymphadenopathy. HEART: Mild cardiomegaly. Small pericardial effusion. Some coronary calcifications are present. VASCULAR STRUCTURES: Unable to evaluate for pulmonary embolus, without IV contrast. No thoracic aortic aneurysm. OSSEOUS STRUCTURES: There are no significant osseous abnormalities seen. VISUALIZED UPPER ABDOMEN: 25 mm cortical lesion within the left renal posterior midpole cortex. Its density measurements is up to 26 6 Hounsfield units. Uncertain if cystic or solid. Consider sonographic evaluation in follow-up to exclude a solid lesion. ESOPHAGUS: No gross abnormalities. IMPRESSION: Very large complex appearing right pleural effusion. Near complete collapse of the right lung. Small left pleural effusion. Subjacent left lower lobe atelectasis. Small pericardial effusion. Indeterminate 2.5 cm left renal cortical lesion. SL: [id number] 08/08/2016 [facility] Chest 1view DX EXAM: Chest radiograph HISTORY: Shortness of breath, worsening pleural effusion COMPARISON: 07/16/2016 at 2244 hours TECHNIQUE: Frontal view of the chest FINDINGS/IMPRESSION: No significant change in the near complete opacification of the right hemithorax may be due to pleural effusion, consolidation, mass, and/or atelectasis. Small left pleural effusion. Right heart border is obscured. SL: [id number] 08/08/2016 [facility] Chest 1view DX Study: Chest 1v iew DX Clinical Indication: Shortness of Breath - shortness of breath Comparison: Chest x-ray from 11/01/2015 FINDINGS: Cardiac silhouette is normal in size. Left perihilar opacities are noted, suspicious for moderate-severe pulmonary edema. Large right and small left pleural effusions are seen. There is no pneumothorax. The osseous structures are unremarkable. IMPRESSION: Congestive heart failure, characterized by pulmonary edema and large right with small left pleural effusions. SL: HARLEY 07/24/2016 [facility] Scrotal/Testicle US Exam: Pina ticular ultrasound History: Bilateral scrotal sac edema Comparison Study: None. Findings: High-resolution testicular ultrasound examination is performed including duplex and color-flow imaging. The right testis measures 3.9 x 1.8 x 2.7 cm. The right testis demonstrates normal echogenicity, outline and color-flow without any focal abnormalities. The head of the right epididymis measure 0.9 cm. The right epididymis demonstrates normal echogenicity, outline and color-flow . The left testis measures 3.7 x 1.9 x 2.3 cm. The left testis demonstrates normal echogenicity, outline and color-flow without any focal abnormalities.. The head of the left epididymis measures 1.1 cm. The left epididymis demonstrates normal echogenicity, outline and color-flow. Bilaterally significant subcutaneous edema in the scrotal wall is noted. There is no demonstrated hydrocele. There is no demonstrated varicocele. Impression: Bilateral subcutaneous scrotal wall edema. This may be from fluid overload or generalized anasarca. 11/04/2015 [facility] Chest 1view DX Clinical histor y: Chest pain. : 1960. Technique: Portable AP chest x-ray. Comparison: 10/24/2015. Shallow inspiration. Enlarged heart. Bilateral pleural effusion and basilar consolidation. Mild vascular congestion. Left double lumen subclavian catheter at the atrial caval junction. The right IJ catheter has been removed. Impression: 1. Vascular congestion, basilar consoli dation and pleural effusion. 11/01/2015 [facility] Chest 1view DX Clinical Indica tion: Chest pain; Comparison: 10/20/2015 1 view chest IMPRESSION: New left jugular perm cath with the tip in the right atrium. Previous right jugular dialysis catheter with the tip in the SVC at the junction with the right atrium. No pneumothorax. Stable pulmonary vascular congestion. Bibasilar atelectasis, right greater than left pleural effusion are similar to previous. SL: RUPESH 10/24/2015 [facility] CVC insert tunnel 2 caths w/-w/o port/pu Patient Name: JAYJAY JENNINGS : 1960; Age: 54 years y/o Male MR: [id number] PROCEDURE: PermCath placement, left IJ PHYSICIAN PROVIDING SERVICE: Chris Spangler M.D. HISTORY: Renal insufficiency requiring dialysis. The patient was referred for PermCath placement. SEDATION: Local, 1% lidocaine CONSENT: The procedure, risks, benefits and alternatives were discussed with the patient and written informed consent was obtained. TECHNIQUE: The left cervical region was interrogated with high resolution sonography demonstrating the left internal jugular vein vein to be patent and compressible. A generous portion of the left cervical region and upper chest was prepped with ChloraPrep and draped. Maximal sterile barrier technique was utilized. The insertion site was anesthetized with 1% lidocaine. A 5 mm incision was made over the left internal jugular vein at the base of the neck. The left internal jugular vein was successfully punctured under direct ultrasound guidance with a 19 -gauge needle with direct ultrasound visualization of the needle entering the vein. A hard copy image was obtained and placed in the patient's permanent record. Following aspiration of venous blood, a 0.035 inch J guidewire was readily advanced without difficulty approximately 18 cm. The tract was dilated to 14-Angolan. A 16-Angolan peel-away sheath was then advanced over the wire into the superior vena cava. Next, the 16-Angolan, 23 cm length HemoSplit type PermCath was tunneled from the left anterior upper chest wall, from approximately 6 cm inferior and lateral to the left IJ insertion site into the left IJ insertion site utilizing a blunt metallic tunneling instrument. The catheter was advanced through the sheath and the sheath was peeled away. The catheter tip was placed in the upper right atrium. Both lumens of the catheter were noted to aspirate and inject freely. The catheter was then flushed and secured to the lower cervical region with 2-0 Prolene sutures. The entry site over the left internal jugular vein was closed with a 2-0 Prolene suture. Fluoroscopy time: 0.3 Minutes. The patient tolerated the procedure well and suffered no immediate complications. A digital radiograph the chest following catheter placement demonstrates good catheter position with its tip in the region of the upper right atrium without evidence of complication. IMPRESSION: 1. Placement of left IJ PermCath. SL: [id number] 10/22/2015 [facility] Chest 1view DX Portable chest: A right jugular dialysis catheter is seen with the tip at the cavoatrial junction. There is no evidence of pneumothorax. There are bibasilar pleural effusions and subsegmental atelect asis. There is mild pulmonary venous congestion. MELINDA DLAWRENCE-PC 10/20/2015 [facility] Retroperitoneal limited w Doppler US INDICATION: Chronic renal failure. PROCEDURE: The kidneys and bladder were scanned with real-time imaging, color Doppler imaging and spectral Doppler analysis. FINDINGS: Compared with 05/14/2015. The right kidney is 10.9 cm in span. It has increased echogenicity. There are multiple cysts. The largest is 2.4 x 2.4 x 2.3 cm. This is in the mid kidney posteriorly and is unchanged. There is flow in the right renal vein. Peak systolic velocity in the right renal artery is 41 cm/s. There is normal arterial waveform. Resistive index in the upper parenchyma 0.61; 0.66 in the mid parenchyma; 0.68 in the lower parenchyma. There is no hydronephrosis. The left kidney is 11.5 cm in span. It has increased echogenicity. Multiple cysts are present. The largest is posteriorly in the mid to lower pole measuring 2.2 x 1.8 x 1.5 cm. This is unchanged. Other cysts are stable as well. There is no hydronephrosis. There is flow in the left renal vein. Peak systolic velocity in the left renal arteries 31 cm/s. The arterial waveform was unremarkable. Resistive index in the upper parenchyma 0.66; 0.59 in mid parenchyma; 0.62 in the lower parenchyma. The urinary bladder was moderately distended with grossly normal valdes. No ascites was evident. IMPRESSION: 1. Findings consistent with chronic sloane l disease bilaterally. There are multiple cysts which are unchanged. 2. The Doppler exam is unremarkable. 05/18/2015 [facility] Abdomen complete w Abdominal Doppler US EXAM: US ABDOMEN COMPLETE DATE: 05/14/2015 1:21 AM DEPUTY FIRE CHIEF INDICATION: Abdominal distension COMPARISON: None. TECHNIQUE: Multiplanar grayscale and color Doppler ultrasound of the abdomen. FINDINGS: Liver: Craniocaudal length: 18.61 cm. Echogenicity: Normal. Mass (size and location): None. Hepatic and portal vasculature: Hepatic artery: Patent with antegrade pulsatile flow. Resistive index: 0.66 Portal veins: Patent with normal hepatopetal monophasic flow. Hepatic veins: Patent with normal hepatofugal multiphasic flow. Splenic artery: Patent with antegrade pulsatile flow. Splenic vein: Patent with normal flow. Bile ducts: Common bile duct diameter: 0.48 cm. Normal. Intrahepatic ducts: Normal. Gallbladder: Gallstones: None. Gallbladder sludge: Present. Gallbladder wall: 0.26 cm. Pericholecystic fluid: None. Sonographic Sharpe sign: Absent. Pancreas: Head and uncinate process: Normal. Body and tail: Not seen. Spleen: Craniocaudal length: 9.5 cm. Mass or focal lesion (size and location): None. Right kidney: Hydronephrosis: None. Size: 14.4 x 7.6 x 7.7 cm. Echogenicity: Increased. Mass/Stone/Cyst (size and location): Four simple cysts are visualized. They measure 2.4 x 2.5 cm, 1.3 x 1.7 cm, 0.8 x 0.8 cm, and 1 x 0.8 cm. There is thin septation within the largest cyst. Left kidney: Hydronephrosis: None. Size: 12.2 x 6.2 x 5.6 cm. Echogenicity: Increased. Mass/Stone/Cyst (size and location): None. Abdominal aorta and IVC: Visible portions are normal. Ascites: Small amount of perihepatic ascites is present. There are bilateral pleural effusions. IMPRESSION: 1. Hepatomegaly. 2. Gallbladder sludge. 3. Bilateral renal parenchymal disease, with multiple simple cysts, the largest of which measures 2.4 x 2.5 cm. 4. Small amount of ascites. 5. Bilateral moderate to large volume p leural effusions. 6. Patent hepatic, portal and splenic v asculature with normal resistive indices. 05/14/2015 [facility] Chest 2 views DX EXAM: XR CHES T 2 VIEWS DATE: 05/13/2015 8:58 PM DEPUTY FIRE CHIEF INDICATION: Shortness of Breath COMPARISON: None available TECHNIQUE: PA and lateral chest radiographs FINDINGS: The diaphragm is pushed upward, presumably by massive ascites. Lung volumes are very low. In addition, there are bronchograms throughout the left lower lobe and lingula of the left upper lobe which may be simply due to compressive atelectasis but also raises the possibility of left lung pneumonia. Pulmonary vascularity is normal. The cardiac silhouette cannot be reliably assessed because of the diaphragmatic elevation and adjacent lung collapse. No acute bony abnormality is identified. IMPRESSION: 1. The lung volumes, likely the result of massive ascites. 2. Collapse of the left lower lobe and portions of the left upper lobe raising the possibility of pneumonia, but compressive atelectasis is sufficient to explain the finding. 05/13/2015 [facility] Consultation Notes No Data Provided for This Section Discharge Summaries No Data Provided for This Section History and Physicals No Data Provided for This Section Vital Signs Vital Sign Value Date Comments Source Systolic (mm Hg) 117 07/08/2017 [facility] Diastolic (mm Hg) 87 07/08/2017 [facility] Respitory Rate 20 07/08/2017 [facility] Temperature Oral (F) 97.8 F 07/08/2017 [facility] Systolic (mm Hg) 179 07/08/2017 [facility] Diastolic (mm Hg) 90 07/08/2017 [facility] Respitory Rate 21 07/08/2017 [facility] Temperature Oral (F) 98.6 F 07/08/2017 [facility] Temperature Oral (F) 98.2 F 07/08/2017 [facility] Systolic (mm Hg) 158 07/08/2017 [facility] Diastolic (mm Hg) 85 07/08/2017 [facility] Respitory Rate 20 07/08/2017 [facility] Height 172.72 cm 07/08/2017 [facility] Weight 65.909 07/08/2017 [facility] BMI Calculated 22.09 07/08/2017 [facility] Weight 62 0 07/07/2017 [facility] Height 162.56 cm 07/07/2017 [facility] BMI Calculated 23.46 07/07/2017 [facility] Heart Rate 82 07/07/2017 [facility] Systolic (mm Hg) 155 01/01/2017 [facility] Diastolic (mm Hg) 77 01/01/2017 [facility] Heart Rate 88 01/01/2017 [facility] Respitory Rate 19 01/01/2017 [facility] Temperature Oral (F) 98.3 F 01/01/2017 [facility] Temperature Oral (F) 98.8 F 01/01/2017 [facility] Respitory Rate 19 01/01/2017 [facility] Systolic (mm Hg) 143 01/01/2017 [facility] Diastolic (mm Hg) 70 01/01/2017 [facility] Heart Rate 91 01/01/2017 [facility] Heart Rate 97 01/01/2017 [facility] Temperature Oral (F) 98.9 F 01/01/2017 [facility] Systolic (mm Hg) 161 01/01/2017 [facility] Diastolic (mm Hg) 76 01/01/2017 [facility] Respitory Rate 18 01/01/2017 [facility] Weight 50.909 12/30/2016 [facility] Weight 59.091 12/29/2016 [facility] Height 177.8 cm 12/29/2016 [facility] BMI Calculated 18.69 12/29/2016 [facility] Systolic (mm Hg) 118 08/19/2016 [facility] Diastolic (mm Hg) 68 08/19/2016 [facility] Respitory Rate 16 08/19/2016 [facility] Heart Rate 76 08/19/2016 [facility] Systolic (mm Hg) 154 08/19/2016 [facility] Diastolic (mm Hg) 76 08/19/2016 [facility] Respitory Rate 16 08/19/2016 [facility] Heart Rate 76 08/19/2016 [facility] Weight 57.739 08/19/2016 [facility] Heart Rate 89 08/19/2016 [facility] Respitory Rate 20 08/19/2016 [facility] Systolic (mm Hg) 136 08/19/2016 [facility] Diastolic (mm Hg) 71 08/19/2016 [facility] Weight 51.83 08/18/2016 [facility] Weight 52.739 08/14/2016 [facility] Height 162.56 cm 08/11/2016 [facility] Height 162.56 cm 08/11/2016 [facility] Height 162.56 cm 08/11/2016 [facility] Temperature Oral (F) 98.7 F 08/10/2016 [facility] Temperature Oral (F) 98.5 F 08/10/2016 [facility] Temperature Oral (F) 98.5 F 08/10/2016 [facility] BMI Calculated 22.53 08/08/2016 [facility] BMI Calculated 23.22 08/08/2016 [facility] Systolic (mm Hg) 162 07/25/2016 [facility] Diastolic (mm Hg) 84 07/25/2016 [facility] Heart Rate 80 07/25/2016 [facility] Temperature Oral (F) 98 F 07/25/2016 [facility] Respitory Rate 20 07/25/2016 [facility] Heart Rate 74 07/25/2016 [facility] Systolic (mm Hg) 129 07/25/2016 [facility] Diastolic (mm Hg) 62 07/25/2016 [facility] Temperature Oral (F) 97.9 F 07/25/2016 [facility] Temperature Oral (F) 97.5 F 07/25/2016 [facility] Heart Rate 74 07/25/2016 [facility] Respitory Rate 18 07/25/2016 [facility] Systolic (mm Hg) 151 07/25/2016 [facility] Diastolic (mm Hg) 78 07/25/2016 [facility] Respitory Rate 23 07/25/2016 [facility] BMI Calculated 23.22 07/25/2016 [facility] Height 162.56 cm 07/25/2016 [facility] Weight 61.364 07/25/2016 [facility] BMI Calculated 27.4 07/25/2016 [facility] Weight 63.636 07/25/2016 [facility] Height 152.4 cm 07/25/2016 [facility] Heart Rate 81 11/07/2015 [facility] Systolic (mm Hg) 138 11/07/2015 [facility] Diastolic (mm Hg) 78 11/07/2015 [facility] Systolic (mm Hg) 178 11/06/2015 [facility] Diastolic (mm Hg) 94 11/06/2015 [facility] Respitory Rate 18 11/06/2015 [facility] Heart Rate 80 11/06/2015 [facility] Temperature Oral (F) 97.6 F 11/06/2015 [facility] Systolic (mm Hg) 165 11/06/2015 [facility] Diastolic (mm Hg) 88 11/06/2015 [facility] Heart Rate 69 11/06/2015 [facility] Respitory Rate 18 11/06/2015 [facility] Temperature Oral (F) 97.3 F 11/06/2015 [facility] Temperature Oral (F) 97.3 F 11/06/2015 [facility] Respitory Rate 18 11/06/2015 [facility] Weight 79.6 11/02/2015 [facility] BMI Calculated 30.12 11/02/2015 [facility] Height 162.56 cm 11/02/2015 [facility] Weight 77.273 11/01/2015 [facility] Respitory Rate 18 10/28/2015 [facility] Temperature Oral (F) 98.2 F 10/28/2015 [facility] Heart Rate 75 10/28/2015 [facility] Respitory Rate 18 10/28/2015 [facility] Systolic (mm Hg) 149 10/28/2015 [facility] Diastolic (mm Hg) 75 10/28/2015 [facility] Systolic (mm Hg) 208 10/28/2015 [facility] Diastolic (mm Hg) 106 10/28/2015 [facility] Respitory Rate 18 10/28/2015 [facility] Temperature Oral (F) 97.6 F 10/28/2015 [facility] Heart Rate 69 10/28/2015 [facility] Systolic (mm Hg) 170 10/28/2015 [facility] Diastolic (mm Hg) 94 10/28/2015 [facility] Heart Rate 63 10/28/2015 [facility] Temperature Oral (F) 97.6 F 10/28/2015 [facility] Weight 68.892 10/28/2015 [facility] Height 162.56 cm 10/24/2015 [facility] BMI Calculated 25.8 10/24/2015 [facility] Weight 68.182 10/24/2015 [facility] Height 162.56 cm 10/21/2015 [facility] BMI Calculated 26.84 10/21/2015 [facility] Weight 70.938 10/21/2015 [facility] BMI Calculated 30.02 10/20/2015 [facility] Height 165.1 cm 10/20/2015 [facility] Heart Rate 78 05/21/2015 [facility] Systolic (mm Hg) 154 05/20/2015 [facility] Diastolic (mm Hg) 89 05/20/2015 [facility] Respitory Rate 40 05/20/2015 [facility] Systolic (mm Hg) 157 05/20/2015 [facility] Diastolic (mm Hg) 85 05/20/2015 [facility] Respitory Rate 18 05/20/2015 [facility] Systolic (mm Hg) 152 05/20/2015 [facility] Diastolic (mm Hg) 87 05/20/2015 [facility] Respitory Rate 16 05/20/2015 [facility] Temperature Oral (F) 97.4 F 05/20/2015 [facility] Temperature Oral (F) 97.5 F 05/20/2015 [facility] Temperature Oral (F) 97.5 F 05/20/2015 [facility] Weight 80.3 05/15/2015 [facility] Heart Rate 99 05/14/2015 [facility] Weight 77.727 05/14/2015 [facility] BMI Calculated 29.41 05/14/2015 [facility] Height 162.56 cm 05/14/2015 [facility] Heart Rate 98 05/14/2015 [facility] Encounters Location Location Details Encounter Type Encounter Number Reason For Visit Attending Provider ADM Date DC Date Status Source [facility] Emergency [id number] ABDOMINAL PAIN CINDY LEWIS 04/12/[address] [facility] [place] [place] Inpatient [id number] FABBY ADAMS 05/21/2013 05/23/2013 [facility]charged [facility] Inpatient [id number] Arabella Camacho 05/14/2015 05/21/2015 [facility] Inpatient [id number] Fer De La Garza 10/20/2015 10/29/2015 [facility] Inpatient [id number] Jerrell Pe 11/01/2015 11/07/2015 [facility] Observation [id number] Fer Frederic 07/25/2016 07/26/2016 [facility] Inpatient [id number] Donna Nj 08/08/2016 08/19/2016 [facility] Inpatient [id number] Lauro Krause 12/29/2016 01/01/2017 [facility] Observation [id number] Marilee Dalal 07/07/2017 07/09/2017 [facility] Procedures Procedure Code Date Perfomer Comments Source Hemodialysis [id number] [facility] Assessment and Plan Assessment and Plan Date Source Extracted from:Title: General Admission H&P * Author: Marilee Dalal DO Date: 07/07/17 Impression and Plan 1. GERD -sounds like patient had attack of reflu x like symptoms that resolved and improved dramatically [...] -consult renal. No signs or sxs of needi ng urgent dialysis. Had session cut short slightly today. 4. HTN uncontrolled -cont home meds -cont prn clonidine 5. DM type II -SSI and Lantus 6. Hx of stroke -baseline does not seem like he is very mobile and functional. He is halfway patient. -reported allergy to aspirin. Heparin for DVT px Dispo: f/u on CT chest, reeval in AM 7. 07/09/2017 [facility] Extracted from:Title: Renal Progress Not e * Author: Den Pedro MD Date: 01/01/17 Impression and Plan ESRD on hemodialysis TTS Anemia in CKD H/O Schizophrenia COPD Hypoglycemia Cognitive impairment Plan: No HD today HD tomorrow per TTS BP is controlled If d/reinier resume OP HDD D/w RN Extracted from:Title: Initial Renal Consultation Author: Enid Pedro MD [...] patient; i will follow along with you 01/01/2017 [facility] Extracted from:Title: EQUIPMENT OPERATOR/LABORER/SUPERVISOR Author: Cele Madera MD Date: 08/16/16 Called to EQUIPMENT OPERATOR/LABORER/SUPERVISOR for AMS and low sugar on glucometer. Had received regular insulin(15 units) and levemir(10units) after 5 pm was given d 50, repeat sugar 150 on arrival pts eyes open but not responding to name or painful stimuli vitals stable pupils small bet reactive stat order placed for D5W. BMP already drawn. will monitor fingerstick [id number] and mental status. 08/19/2016 [facility] Extracted from:Title: Clinical Document Author: Lacy Morel MD Date: 07/25/16 Progress Note - Daily [facility] Completed: Jun, 14:19 by Lacy Morel MD RM: 323 - 01, [id number] JAYJAY JENNINGS 55y (: 1960) M Attending: Fer De La Garza DO Service: Internal Medicine Reason for Admission: FLUID OVERLOAD, DIALYSIS PATIENT Working DRG: Other factors influencing health status Code status: Full Code [Ordered] Current diet: Isolation: None Documented Allergies: Tylenol, aspirin SUBJECTIVE Patient with mild SOB OBJECTIVE VSS chest-decreased BS CVS-RRR Abd-soft BS+ Ext-trace edema 24hr Labs 07/25 1053 Glucose POC 258 H 07/25 0631 Glucose POC 137 H 07/25 0341 Glucose POC 156 H 07/24 2302 Sodium Lvl 139 Potassium Lvl 3.7 Chloride Lvl 100 CO2 34 H AGAP 8.7 L Glucose Lvl 173 H Creatinine Lvl 4.02 H BUN 19 B/C Ratio 5 L Total Protein 8.7 H Albumin Lvl 2.5 L Globulin 6.2 H A/G Ratio 0.4 L Calcium Lvl 8.3 L ALT 11 AST 13 Alk Phos 74 Bili Total 0.4 eGFR 18 Total CK 144 Troponin-I 0.02 CK MB 6.7 H CK MB Index 4.7 H BNP 304 H WBC 8.8 RBC 3.44 L Hgb 9.5 L Hct 29.9 L MCV 87.1 MCH 27.5 MCHC 31.6 L RDW 15.8 H Platelet 261 MPV 7.3 L Segs 48.0 Monocytes 14.3 H Lymphocytes 31.7 Eosinophils 5.3 H Basophils 0.7 Segs-Bands # 4.2 Lymphocytes # 2.8 Monocytes # 1.3 H Eosinophils # 0.5 Basophils # 0.1 [place] still necessary (Yes/No): Line still necessary (Yes/No): Vitals Tmp(F) Pulse BP RR SpO2 FIO2 07/25 11:30 98 80 162/84 -- 99 --- 07/25 10:11 ---- --- ----- - - 98 --- 07/25 07:45 97.9 74 129/62 2 0 96 --- 07/25 04:18 ---- --- ----- - - 97 3.0L/m 07/25 04:15 97.5 74 151/78 1 8 100 --- 24 Hr Tmax: 99.3F (37.39c) at 07/24 21:5 5 Vital Signs are the last 5 in the past 48 hours. Date Wt(kg) Wt(lb) Ht(cm) Ht(in) Method 07/25 61.36 135.00 162.56 64.00 Estimated 07/24 (initial) 63.64 140.00 152.40 60.00 Estimated I&O Record In Out Bal 07/25 24hr Tot 200 0 200 07/24 24hr Tot 0 0 0 Medications () Active Scheduled Meds (8): 07/25/16 amLODIPine 10 mg PO Daily 07/25/16 carvedilol 3.125 mg PO Q12H 07/25/16 cloNIDine (cloNIDine 0.1 mg ora l tablet) 0.1 mg PO TID 07/25/16 famotidine (Pepcid 20 mg oral t ablet) 20 mg PO Daily 07/25/16 glyBURIDE 5 mg PO Daily 07/25/16 hydrALAZINE (hydrALAZINE 25 mg oral tablet) 50 mg PO TID 07/25/16 isosorbide mononitrate 120 mg P O Before Breakfast 07/25/16 lisinopril 40 mg PO Daily Unscheduled Meds (1): 07/25/16 pneumococcal 13-valent vaccine 0.5 mL IM ONCALL PRN Meds (20): 07/25/16 Dextrose 50% in Water IV (Dextr ose 50% Syringe) 12.5 gm IVP PRN 07/25/16 Dextrose 50% in Water IV (Dextr ose 50% Syringe) 25 gm IVP PRN 07/25/16 acetaminophen-hydrocodone (acet aminophen-hydrocodone 325 mg-5 mg oral tablet) 1 tab PO Q4H 07/25/16 acetaminophen 650 mg PO Q4H 07/25/16 albuterol-ipratropium (DuoNeb i nhalation solution) 3 ml NEB PRN 07/25/16 glucagon 1 mg IM PRN 07/25/16 hydrALAZINE 10 mg IVP Q6H 07/25/16 insulin aspart 2 unit SUB-Q TID -Before Meals 07/25/16 insulin aspart 4 unit SUB-Q TID -Before Meals 07/25/16 insulin aspart 6 unit SUB-Q TID -Before Meals 07/25/16 insulin aspart 8 unit SUB-Q TID -Before Meals 07/25/16 insulin aspart 10 unit SUB-Q TI D-Before Meals 07/25/16 insulin aspart 1 unit SUB-Q Bed time 07/25/16 insulin aspart 2 unit SUB-Q Bed time 07/25/16 insulin aspart 3 unit SUB-Q Bed time 07/25/16 insulin aspart 4 unit SUB-Q Bed time 07/25/16 morphine Sulfate 2 mg IVP Q4H 07/25/16 nitroglycerin (nitroglycerin 0. 4 mg sublingual tablet) 0.4 mg SL Q5Min 07/25/16 ondansetron 4 mg IVP Q6H 07/24/16 sodium chloride (Saline Flush 0 .9%) 10 mL IVP PRN One Time Meds: None Continuous Infusions: None ASSESSMENT and EXAM ESRD Fluid overload HTN DM PLAN and TREATMENT HD today 3.5 hours 3K 140Na 35HCO3 DIAGNOSES and PROBLEMS Ready for Discharge (Yes/No)? TEACHING ATTESTATION 07/26/2016 [facility] Extracted from:Title: Progress Note * Author: Jerrell Frausto MD Date: 11/06/15 Impression and Plan A 54 yr old M with HTN,DM,ESRD on HD, non compliance and missing dialysis sessions is with fluid overload 1. Fluid overload: sec to missing dialys is, improved volume status, HD planned today. discussed with CM, has solved the issue with contract between [place] and [facility] and [facility] will start HD tomorow, regular sales representative [employer] is Dr Martinez, will d/c to [place] after HD today 2. Hyperkalemia: resolved with HD 3. HTN: improved control 4. DM: fairly controlled, low dose glybu ride 5. Scrotal and penils swelling: likley f rom fluid overload and dependent edema, scrotal US: negative except skin edema, UA is negative, FU with urology as outpatient DVT Px d/c to [place] after HD today Extracted from:Title: General Admission H&P Author: Clinton Loera MD Date: 11/01/15 Impression and Plan ESRD Fluid o/l Hyper K Anemia DM2 HTN --tele --Renal called for ESRD/HD --Resume home meds --Insulin SS --Kayexalate --DVT/GI ppx 11/07/2015 [facility] Extracted from:Title: Discharge Summary *template Author: Guanako Torres MD Date: 10/28/15 Discharge Information Home Care Instructions [...] Follow-Up With Provider : physician, Non- physician Provider #1 : Erika Martinez MD Follow-Up Call : Call for appointment Follow-up with Provider within : 1 Week Reason : Follow Up On Treatment Non Provider #1 : PCP OR [facility] Follow-Up Call : Call for appointment Follow-Up Within : 1 Week Reason : Establish Primary Care Physician Guanako Torres MD - 10/28/2015 10:53 CDT Discharge Plan Discharge Summary Plan Discharge Status: fair. Discharge instructions given: to patient. Discharge disposition: discharge to senior care facility. Prescriptions: written and given to patient. Education and Follow-up Counseled: patient. Extracted from:Title: General Admission H&P Author: Zunilda Vee MD Date: 10/20/15 Impression and Plan 1. Chest pain, rule out ACS Admit to obs / telemetry serial cardiac enzymes stat ekg prn chest pain nitro and morphine prn pain Cardiology consult for further assessment and recommendations 2. Hyperglycemia / poorly controlled florencia betes mellitus / medication noncompliance high dose sliding scale insulin 3. Hypertension, stable resume home meds 4. Hyperkalemia / ESRD on HD patient received kayexalate, albuterol and insulin in the ED Nephrology has been consulted 5. Diastolic heart failure, likely due t o hypertension vs undiagnosed coronary artery disease 6. Anemia, chronic; likely due to renal disease 7. History of polysubstance abuse / coca ine check UDS 8. Schizophrenia 9. Bipolar disorder 10. Medication non-compliance code: full 10/29/2015 [facility] Extracted from:Title: Discharge Summary Author: Matt Aldridge MD Date: [...] well as plan as documented in the residents note with addition of: Patient high risk for readmission given history of noncompliance. Patient referred to House call program at [phone] fax [phone]. Penile and scrotal swelling- discussed pt to keep elevated. Total Time > 35 minutes >50% time spent includes: patient reassessment, interpretation of data including the laboratory data and imaging results, medical discussion risk and benefits of follow up and medication compliance, medication reconciliation review, and coordination of patient care with patient. Medications delivered at bedside. Jaymie Villar MD Teaching Attending/Team B Extracted from:Title: Urology Consult Author: Codi Gutierrez MD Date: [...] the plan described by Dr. Gutierrez. Extracted from:Title: Medicine Team B Progress Note Author: Matt Aldridge MD Date: 05/20/15 Patient: JAYJAY JENNINGS Age: 54 years Sex: [...] list: All Problems Bipolar / SNOMED CT 731796730 / Confirmed Diabetes mellitus / SNOMED CT 687169629 / Confirmed HTN - Hypertension / SNOMED CT 2032800506 / Confirmed Schizophrenia / ICD-9-CM 295.90 / Confirmed Resolved: Asthma / SNOMED CT 123097229 Objective Meds Scheduled Meds (13):amLODIPine, aspirin, benzonatate [...] in Water IV (Dextrose 50% Syringe), acetaminophen-hydrocodone ([place] 7.5/325 oral tablet), albuterol-ipratropium (DuoNeb inhalation solution), diphenhydrAMINE (Benadryl), glucagon, (Suspended) hydrALAZINE, insulin aspart, insulin aspart, insulin aspart, insulin aspart, insulin aspart, insulin aspart, insulin aspart, insulin aspart, insulin aspart, labetalol, menthol-zinc oxide topical (Calmoseptine topical ointment), nitroglycerin (nitroglycerin 0.4 mg sublingual tablet), senna (senna 8.6 mg oral tablet) One Time Meds: None Continuous Infusions: None I&O Input/Output Record In Out Bal 05/19 24hr Tot 595 1150 -555 05/18 24hr Tot 450 800 -350 VS/Measurements Measurements from flowsheet : Measurements 05/14/2015 18:20 Heparin Dosing Weight (kg) 67.64 05/14/2015 18:19 Weight 80.3 kg Dosing Weight Difference Percent 3.31 % Dosing Weight Collection Method Measured , Vital Signs (last 24 hrs) Last Charted Temp Oral 97.5 DegF (MAY 20 07:26) Heart Rate Apical 76 bpm (MAY 20 08:16) Resp Rate H 25BRMIN (MAY 20:16) SBP H 169mmHg (MAY 20 08:16) DBP H 91mmHg (MAY 20 08:16) General Appearance: Awake, [...] Labs (Last four charted values) WBC H 10.7 (FEB 22) H 11.4 (FEB 21) H 11.2 (FEB 20) H 13.1 (FEB 19) Hgb L 8.5 (FEB 22) L 8.0 (FEB 21) L 7.7 (FEB 20) L 7.4 (FEB 19) Hct L 26.1 (FEB 22) L 24.7 (FEB 21) L 23.3 (FEB 20) L 22.6 (FEB 19) Plt 406 (FEB 22) 358 (FEB 21) 315 (FEB 20) 299 (FEB 19) Na 141 (FEB 22) 140 (FEB 21) 142 (FEB 20) 140 (FEB 19) K 4.8 (FEB 22) 5.1 (FEB 21) 4.8 (FEB 20) 5.1 (FEB 19) CO2 29 (FEB 22) 28 (FEB 21) 29 (FEB 20) 30 (FEB 19) Cl 109 (FEB 22) 107 (FEB 21) 107 (FEB 20) 106 (FEB 19) Cr H 2.10 (FEB 22) H 2.29 (FEB 21) H 2.29 (FEB 20) H 2.54 (FEB 19) BUN H 47 (FEB 22) H 46 (FEB 21) H 45 (FEB 20) H 49 (FEB 19) Glucose Random H 155 (FEB 22) H 165 (FEB 21) H 198 (FEB 20) H 249 (FEB 19) Mg 2.1 (FEB 22) 2.0 (FEB 21) 2.1 (FEB 20) 2.0 (FEB 19) Phos 4.5 (FEB 22) 4.0 (FEB 21) 4.4 (FEB 20) 4.3 (FEB 19) Ca L 8.3 (FEB 22) L 7.8 (FEB 21) L 8.3 (FEB 20) L 8.3 (FEB 19) PT 14.3 (FEB 16) INR 1.08 (FEB 16) PTT 32.6 (APR 16) Troponin <0.02 (APR 16) 0.02 (B 15) . Impression and Plan Patient is a 54yo [...] - Likely d/t fluid overload 2/2 CHF exac erbation; however, possibly due to COPD v. Decomp. cirrhosis. - TTE (05/12): LVEF 55-60%, mod concentri c LVH. RSVP 27 - Repeat TTE: LVEF 50-55%, severe tricup id regurg. RSVP 73 - On Bumex 1mg q8h po - Fluid restriction to 1L/Day and Strict I+O/ daily weights. - Urology seen for penile and scrotal sw elling. Consistent with Lymphedema. No phimosis. # Refractory HTN - Has become HTNve to 200's during admis bertha - Amlodpine 10mg PO daily, Coreg 12.5mg BID, hydralazine 50 mg q6h. Imdur increased to 120mg - PRN Labetalol 20mg. - RAAS, Metneprhines and Renal dopplers pending for HTN pradhan - Renal Doppler showing increased echogenicty consistent with CKD and mulitple stable cysts. # GRACIE - Likely pre-renal 2/2 CHF/hypo-perfusio n of kidneys. - Cr 2.34 on admission,--> improving - Will continue diuresis and monitor Cr. # Transaminitis with h/o of HCV - Unknown if patient has cirrhosis; no h x. of treatment- will obtain HCV RNA PCR and Hepatitis panel. - Plt 327, INR 1.08 Albumin 2.3 - Abdominal U/S- Hepatomegaly, Patent he patic, portal and splenic vasculature with normal resistive indices # Anemia - stable - MCV 88.7 # DM - HbA1c: 6.3 - Will continue Med dose SSI. # Schizoprenia/Bipolar d/o - Patient previously on seroquel per med . rec. - Will restart as indicated. # Polysubstance Abuse - UDS: + Opioids - Counseled on cessation. Diet: Heart Healthy PPx.: Heparin subq Dispo; patient will be staying w friend on discharge Addendum by Jaymie Villar MD on 05/20/2015 15:59 Teaching Attending Attestation Note: I have seen and examined the patient with the resident; and I have reviewed the vitals and laboratory results. I discussed the patient with Team B on rounds, and agree with Dr. Palacios findings as well as plan as documented in the residents note with addition of: Acute respiratory failure- likely secondary to acute on chronic diastolic chf. recommend follow up with bridge program. Penile pain - penile swelling seems worse. patient seen by urology. continue elevation Dispo- possibly today. Jaymie Villar MD Teaching Attending/Team B Extracted from:Title: Medicine Team B History and Physical Author: Brice Martinez MD Date: 05/14/15 Impression and Plan Patient is a 54yo [...] - Likely d/t fluid overload 2/2 CHF exac erbation; however, possibly due to COPD v. Decomp. cirrhosis. - TTE (05/12): LVEF 55-60%, mod concentri c LVH. - BNP: 970. - AB.49 H/46 H/58 * C/35 H; currentl y on 2L NC SaO2 100%. - Will consider CPAP if patient's continues to have SOB and increased work of breathing. - RT consult placed. - S/p IV Lasix 40mg; will contiune diure sis with Lasiv 40mg IV q12h. - Will obtain repeat TTE and Abdominal U /S. - Fluid restriction to 1L/Day and Strict I+O/ daily weights. 2. GRACIE - Likely pre-renal 2/2 CHF/hypo-perfusio n of kidneys. - Cr 2.34, baseline 1.4. - Will continue diuresis and monitor Cr. 3. Leukocytosis - 2/2 PNA v. Cellulitis of RLE v. L heal ulcer - WBC 15, 65% neut. - Procal.: .26; Lactate 1.3. - Will hold Abx. for time being give low suspicion of infection. 4. Transaminitis with h/o of HCV - Unknown if patient has cirrhosis; no h x. of treatment- will obtain HCV RNA PCR and Hepatitis panel. - Plt 327, INR 1.08 Albumin 2.3 - Will obtain Abdominal U/S to further a ssess. 5. Anemia - Hgb 8.7, at baseline- stable - MCV 88.7 - Will consider Anemia work-up. 6. CAD - Continue ASA; will hold Statin until L iver evaluated. 7. HTN - Will start Amlodpine 10mg PO daily and given Hydralazine 10mg x 1. - Will restart ACEi and B-Nicky as GRACIE and decomp HF improves; respectively. 8. DM - HbA1c: 6.3 - Will continue Med dose SSI. 9. Schizoprenia/Bipolar d/o - Patient previously on seroquel per med . rec. - Will restart as indicated. 10. [...] well as plan as documented in the residents note with addition of: Patient looks older [...] of scrotum. Jaymie Villar MD Teaching Attending 05/21/2015 [facility] Plan of Care No Data Provided for This Section Social History Social History Date Source Social History TypeResponse Substance Abuse Use: Past. Type: Amphetamines. Amount: [...] states he uses cocaine approx 1 month [id number] hour s 07/07/2017 [facility] Social History TypeResponse Substance Abuse Use: Past. Type: Amphetamines. Amount: [...] states he uses cocaine approx 1 month [id number] hour s 12/30/2016 [facility] Social History TypeResponse Substance Abuse Use: Current. Type: Amphetamines. Recreational [...] states he uses cocaine approx 1 month [id number] hour s 05/15/2015 [facility] Social History TypeResponse Substance Abuse Use: Current. Type: Amphetamines. Recreational [...] states he uses cocaine approx 1 month [id number] hour s 05/15/2015 [facility] Family History No Data Provided for This Section Advance Directives No Data Provided for This Section Functional Status No Data Provided for This Section
--- OUTSIDE RECORDS SUMMARY | 2019-08-30 11:57 | XMS REPORT | Continuity of Care Document ---
Author Author [facility] t Organization [facility] Address [address] [place] [address] Phone Unavailable Care Team Providers Care Plaster Whittler Name Role Phone NONSTAFF PCP Unavailable ITALIA TINAJERO Attphys Unavailable Marilee Dalal Attphys Cristina FENTON Attphys Unavailable Selwyn Krause Attphys Donna Nj Attphys Maicol De La Garza Attphys Jerrell Frausto Attphys Marlon Villar Attphys ITALIA TINAJERO Admphys Unavailable Marilee Dalal Admphys Cristina FENTON Admphys Unavailable NelidaSelwyn martinez Admphys Donna Nj Admphys Maicol De La Garza Admphys Jerrell Frausto Admphys Patricia Camacho Admphys Payers Payer Name Policy Type Policy Number Effective Date Expiration Date [facility] Nihon Gigei [facility] [id number] 2018 00:00 :00 [facility] Problems Condition Name Condition Details Condition Category Status Onset Date Resolution Date Last Treatment Date Treating Clinician Comments Source HEART GEIGER HEAR T GEIGER Active 07/07/2017 [facility] Diagnosis Active 2017-07-07 00:00:00 2017-07-07 15:06:00 [facility] COUGH, LEUKOCYTOSIS, ESRD ON HEMODIALYSI COUGH, LEUKOCYTOSIS, ESRD ON HEMODIALYSI Active 07/07/2017 [facility] Diagnosis Active 2017-07-07 00:00:00 2017-07-15 21:57:00 [facility] Methicillin resistant Staphylococcus aureus (organism) Methicillin resistant Staphylococcus aureus (organism) Active 12/31/2016 Problem 10/15/2017 Blood 12/31/2016Problem added by Discern Expert. [facility] Problem Active 2016-12-31 00:00:00 2017-10-15 10:35:04 [facility] ESRD, NAUSEA W/VOMITING, DIABETES ESRD, NAUSEA W/VOMITING, DIABETES Active 12/29/2016 [facility] Diagnosis Ac tive 2016-12-29 00:00:00 2017-01-06 23:25:00 [facility] LOW BLOOD SUGAR LOW BLOOD SUGAR Active 12/29/2016 [facility] Diagnosis Active 2016-12-29 00:00:00 2016-12-29 11:19:00 [facility] BILATERLA PLEURAL EFFUSION MEGAN ATERLA PLEURAL EFFUSION Active 08/08/2016 [facility] Diagnosis Active 2016-08-08 00:00:00 2016-09-22 21:58:00 [facility] SHORTNESS OF BREATH SHOR TNESS OF BREATH Active 08/08/2016 [facility] Diagnosis A ctive 2016-08-08 00:00:00 2016-08-08 07:53:00 [facility] FLUID OVERLOAD/ SOB FLUI D OVERLOAD/ SOB Active 07/24/2016 [facility] Diagnosis Active 2016-07-24 00:00:00 2016-07-25 01:10:00 [facility] FLUID OVERLOAD, DIALYSIS PATIENT FLUID OVERLOAD, DIALYSIS PATIENT Active 07/24/2016 [facility] Diagnosis Active 2016-07-24 00:00:00 2016-07-30 22:06:00 [facility] VOLUME OVERLOAD, ESRD ON HD VO LUME OVERLOAD, ESRD ON HD Active 11/01/2015 [facility] Diagnosis Active 2015-11-01 12:00:00 2015-11-02 05:42:00 [facility] FLUID OVERLOAD FLUI D OVERLOAD Active 11/01/2015 [facility] Diagnosis Active 2015-11-01 12:00:00 2015-11-01 20:55:00 [facility] VOLUME OVERLOAD/HYPERKALEMIA V OLUME OVERLOAD/HYPERKALEMIA Active 11/01/2015 [facility] Diagnosis Active 2015-11-01 00:00:00 2015-11-12 22:06:00 [facility] CHEST PAIN CHES T PAIN Active 10/20/2015 [facility] Diagnosis Active 2015-10-20 00:00:00 2015-10-20 21:14:00 [facility] HYPERKALEMIA, VOLUME OVERLOAD, CHEST TUAN HYPERKALEMIA, VOLUME OVERLOAD, CHEST TUAN Active 10/20/2015 [facility] Diagnosis Active 2015-10-20 00:00:00 2015-10-21 08:31:00 [facility] ACUTE ON CHRONIC DIASTOLIC HEART FAILURE ACUTE ON CHRONIC DIASTOLIC HEART FAILURE Active 10/20/2015 [facility] Diagnosis Active 2015-10-20 00:00:00 2015-11-01 23:18:00 [facility] CHF CHF Active 05/13/2015 [facility] Diagnosis Active 2015-05-13 00:00:00 2015-05-21 14:42:00 [facility] DYSPNEA; CONGESTIVE HEART FAILURE; PLEUR DYSPNEA; CONGESTIVE HEART FAILURE; PLEUR Active 05/20/2013 [facility] Diagnosis Active 2013-05-20 00:00:00 2013-05-26 21:55:00 [facility] ABDOMINAL PAIN ABDO RAIN PAIN Active 04/12/2012 [facility] Diagnosis Active 2012-04-12 00:00:00 2012-04-12 11:38:00 [facility] End-stage renal disease needing dialysis ESRD needing dialysis Proble m Active [facility] End stage renal failure on dialysis ESRD on dialysis Problem Active [facility] Hypervolemia Volume overload Problem Active [facility] Bipolar (qualifier value) Bipo lar (qualifier value) Active Problem 01/04/2017 [facility] Problem Active 2017-01-04 01:51:31 [facility], [facility], [facility] Asthma (disorder) Asth ma (disorder) Resolved Problem 10/15/2017 [facility], [facility] Problem Resolved 2017-10-15 10:35:04 [facility], [facility], [facility], [facility] Chronic obstructive lung disease (disorder) Chronic obstructive lung disease (disorder) Active Problem 10/15/2017 [facility], [facility] Problem Active 2017-10-15 10: 35:04 [facility], [facility], [facility] Diabetes mellitus (disorder) D iabetes mellitus (disorder) Active Problem 10/15/2017 [facility], [facility] Problem Active 2017-10-15 10: 35:04 [facility], [facility], [facility], [facility] Hypertensive disorder, systemic arterial (disorder) Hypertensive disorder, systemic arterial (disorder) Active Problem 10/15/2017 [facility] Problem Active 2017-10-15 10:35:04 [facility], [facility], [facility], [facility] Schizophrenia (disorder) Schi zophrenia (disorder) Active Problem 10/15/2017 [facility] Problem Active 2017-10-15 10:35:04 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, or end stage renal disease Hypertensive heart and chronic kidney disease with heart failure and with stage 5 chronic kidney disease, or end stage renal disease 10/15/2017 [facility] Problem 2017-10-15 10:35:04 [facility] Heart failure, unspecified Hea rt failure, unspecified 10/15/2017 [facility] Problem 2017-10-15 10:35:04 [facility] End stage renal disease End stage renal disease 10/15/2017 [facility] Problem 2017-10-15 10:35:04 [facility] Gastro-esophageal reflux disease without esophagitis Gastro-esophageal reflux disease without esophagitis 10/15/2017 [facility] Problem 2017-10-15 10:35:04 [facility] reater [facility] Elevated white blood cell count, unspecified Elevated white blood cell count, unspecified 10/15/2017 [facility] Problem 2017-10-15 10:35:04 [facility] Dependence on renal dialysis D ependence on renal dialysis 10/15/2017 [facility] Problem 2017-09-27 0 10:35:04 [facility] Chronic obstructive pulmonary disease, unspecified Chronic obstructive pulmonary disease, unspecified 10/15/2017 [facility] Problem 2017-10-15 10:35:04 [facility] reater [facility] Schizophrenia, unspecified Sharmila izophrenia, unspecified 10/15/2017 [facility] Problem 2017-10-15 10:35:04 [facility] Personal history of transient ischemic a ttack (TIA), and cerebral infarction without residual deficits Personal history of transient ischemic attack (TIA), and cerebral infarction without residual deficits 10/15/2017 [facility] Problem 2017-10-15 10:35:04 [facility] skilled nursing (current) use of insulin skilled nursing (current) use of insulin 10/15/2017 [facility] Problem 2017-10-15 10:35:04 [facility] CHF NOS CHF NOS Active [facility] Diagnosis Active 2013-05-26 21:55:00 [facility] PLEURAL EFFUSION NOS PLEU RAL EFFUSION NOS Active [facility] Diagnosis Active 2013-05-26 21:55:00 [facility] EDEMA NEO A Active [facility] Diagnosis Active 2013-05-26 21:55:00 [facility] HEART FAILURE, UNSPECIFIED HEA RT FAILURE, UNSPECIFIED Active [facility] Diagnosis Active 2015-11-01 23:18:00 [facility], [facility] HYPERKALEMIA HYPE RKALEMIA Active [facility] Diagnosis Active 2015-11-12 22:06:00 [facility] FLUID OVERLOAD, UNSPECIFIED FL UID OVERLOAD, UNSPECIFIED Active [facility] Diagnosis Active 2016-07-30 22:06:00 [facility], [facility] DEPENDENCE ON RENAL DIALYSIS D EPENDENCE ON RENAL DIALYSIS Active [facility] Diagnosis Active 2016 22:06:00 [facility] PLEURAL EFFUSION, NOT ELSEWHERE CLASSIFI PLEURAL EFFUSION, NOT ELSEWHERE CLASSIFI Active [facility] Diagnosis Active 2016-09-22 21:58:00 [facility] NAUSEA WITH VOMITING, UNSPECIFIED NAUSEA WITH VOMITING, UNSPECIFIED Active [facility] Diagnosis Active 2017-01-06 23 :25:00 [facility] TYPE 2 DIABETES MELLITUS WITH HYPOGLYCEM TYPE 2 DIABETES MELLITUS WITH HYPOGLYCEM Active [facility] Diagnosis Active 2017-01-06 23:25:00 [facility] COUGH COUG H Active [facility] Diagnosis Active 2017-07-15 21:57:00 [facility] ELEVATED WHITE BLOOD CELL COUNT, UNSPECI ELEVATED WHITE BLOOD CELL COUNT, UNSPECI Active [facility] Diagnosis Active 2017-07-15 21:57:00 [facility] END STAGE RENAL DISEASE END STAGE RENAL DISEASE Active [facility] Diagnosis Active 2017-07-15 21:57 :00 [facility], [facility] Other chest pain Othe r chest pain 07/16/2017 10/15/2017 [facility] Problem 2017-07-16 03:34:44 2017-10-15 10:35: 04 2017-10-15 10:35:04 [facility] Allergies, Adverse Reactions, Alerts Allergy Name Allergy Type Status Severity Reaction(s) Onset Date Inacti ve Date Treating Clinician Comments Source Penicillins DA Active U 2018-04-02 00:00:00 [facility] aspirin DA Active U 2018-04-02 00:00:00 [facility] acetaminophen DA Active U 2018-04-02 00:00:00 [facility] Penicillins DA Active U 2017-12-01 00:00:00 [facility] aspirin DA Active U 2017-12-01 00:00:00 [facility] acetaminophen DA Active U 2017-12-01 00:00:00 [facility] aspirin aspirin Active [facility] penicillins penicillins Active [facility] Tylenol<sup>1</sup> Tylenol<sup>1</sup> Active [facility] Social History Social Habit Start Date Stop Date Quantity Comments Source Social History 2015-05-15 06:59:14 2015-05-15 06:59:14 [facility] Medications Ordered Medication Name Filled Medication Name Start Date Stop Da te Current Medication? Ordering Clinician Indication Dosage Frequency Signature (SIG) Comments Components Source cefepime 2017-07-08 18:00:00 No Notes: (Same As: Maxipime) MEDICATION WASTE Product Size: 1000 mg Product Wasted: ___ mg [facility] insulin glargine 2017-07-08 14:00:00 No Notes: (Same as: Lantus) Do not hold insulin without contacting prescriber WASTE: F/P - Black; E - Municipal Trash Bin "single patient use only" [facility] Docusate Sodium 50 MG / sennosides, SNF 8.6 MG Oral Tablet 2017-07-08 14:00:00 No Notes: (Same as Chiquita-S) Equ iv. to Gita-Colace. [facility] Norvasc 2017-07-08 14:00:00 No Notes: (Same as: Norvasc) [facility] Lisinopril 2017-07-08 14:00:00 No Notes: (Same as: Prinivil, Zestril) [facility] Isosorbide 2017-07-08 14:00:00 No Notes: (Same as:Imdur) "Do Not Crush" Take on empty stomach/ full glass of water. Do not crush [facility] Lyrica 2017-07-08 14:00:00 No Notes: (Same as: Lyrica) [facility] Renvela 2017-07-08 12:30:00 No Notes: Same as: Renvela [facility] Levemir 2017-07-08 12:30:00 No 20 unit, Route: SUB-Q, Drug form: SOLN, QAM (Insulin), Dosing Weight 62, kg, Start date: 07/08/17 7:30:00 CDT, Duration: 30 day, Stop date: 08/06/17 7:30:00 CDT [facility] Hydralazine Hydrochloride 25 MG Oral Tablet 2017-07-08 05:00:00 No Notes: (Same as: Apresoline) May interfere w/enteral feedings Take With Food. [facility] Melatonin 3 MG Extended Release Tablet 2017-07-08 02:00:00 No Notes: (Same as: Melatonin) [facility] Coreg 2017-07-08 02:00:00 No Notes: Give with food. (Same As: Coreg) [facility] Zoloft 2017-07-08 02:00:00 No Notes: (Same as: Zoloft) [facility] Seroquel 2017-07-08 02:00:00 No Notes: (Antonio e as: SEROquel) [facility] heparin 2017-07-08 02:00:00 No Notes: porci ne heparin [facility] Lactulose 667 MG/ML Oral Solution 2017-07-08 02:00:00 No Notes: (Same as:Chronulac) [facility] Insulin Lispro 2017-07-07 22:46:00 No Notes: (Same as: Humalog ) Roll in palms of hands gently; Do not shake `vigorously. "Single Patient Use Only " WASTE: F/P - Black; E - Municipal Trash Bin Stable for 28 days at room temperature. Expires in days from Date [facility] Glucagon 2017-07-07 22:46:00 No 1 mg, Route: IM, Drug form: PDR/INJ, PRN, Dosing Weight 62, kg, PRN Blood Glucose Results, Start date: 07/07/17 17:46:00 CDT, Duration: 30 day, Stop date: 08/06/17 17:45:00 CDT [facility] Dextrose 50% Syringe 2017-07-07 22:46:00 No 25 gm, 50 mL, Route: IVP, Drug Form: INJ, Dosing Weight 62, kg, PRN, PRN Blood Glucose Results, Start date: 07/07/17 17:46:00 CDT, Duration: 30 day, Stop date: 08/06/17 17:45:00 CDT [facility] Nitroglycerin 0.4 MG Sublingual Tablet [Nitrostat] 2017-06-27 1 22:35:00 No Notes: (Same as:Nitroquick, Nitr ostat) "Do Not Crush" Sublingual tablet [facility] Robitussin 100 mg/5 mL oral liquid 2017-07-07 22:34:00 No Notes: (Same as: Robitussin) [facility] tramadol hydrochloride 50 MG Oral Tablet 2017-07-07 22:34:00 No Notes: Not to exceed 400mg/day. (Same As: Ultram) [facility] Clonidine Hydrochloride 0.1 MG Oral Tablet 2017-07-07 22:34:00 No Notes: (Same As: Catapres) [facility] Protonix 2017-07-07 22:34:00 No Notes: Tablet should not be chewed or crushed. (Same as: Protonix) [facility] Albuterol 0.833 MG/ML / Ipratropium Brom alejandro 0.167 MG/ML Inhalant Solution [DuoNeb] 2017-07-07 22:34:00 No Notes: (S cheryl as: Duoneb) [facility] GI cocktail 2017-07-07 22:33:00 No Notes: G.I. Cocktail = antacid with simethicone 22.5 mL - lidocaine viscous 7.5 mL [facility] Albuterol 0.833 MG/ML / Ipratropium Brom alejandro 0.167 MG/ML Inhalant Solution [DuoNeb] 2017-07-07 20:31:00 Yes 3 mL, NEB, QID, PRN as needed for shortness of breath or wheezing [facility] Aquaphor Healing topical ointment 2017-07-07 20:31:00 Yes 1 appl, TOP, Daily, (bilateral lower extremities) [facility] Petrolatum 0.41 MG/MG Topical Ointment [Aquaphor] 2017-07-07 20:31:00 Yes 1 appl, TOP, Daily, (bilateral lower extremitie s) [facility] Insulin, Aspart, Human 100 UNT/ML Injectable Solution [NovoL og] 2017-07-07 20:29:00 Yes 400 = 10 units and call MD [facility] Insulin, Aspart, Human 100 UNT/ML Injectable Solution [NovoL og] 2017-07-07 20:29:00 Yes 400 = 10 units and call [facility] insulin detemir 100 UNT/ML Injectable Solution [Levemir] 2017-07-07 20:28:00 Yes 20 unit, SUB-Q, QAM (Insulin) [facility] quetiapine 50 MG Oral Tablet [Seroquel] 2017-07-07 20:27:00 Yes 50 mg = 1 tab, PO, Bedtime, (150 mg at bedtime) [facility] glucagon recombinant 1 mg injection 2017-07-07 20:27:00 No 1 mg, IM, Q15Min, PRN Blood Glucose Results, (Blood Glucose less than 60 mg/dL) [facility] tramadol hydrochloride 50 MG Oral Tablet 2017-07-07 20:27:00 Yes 50 mg = 1 tab, PO, TID, PRN Pain Score 4-6 [facility] Sertraline 50 MG Oral Tablet [Zoloft] 2017-07-07 20:26:00 Y es 50 mg = 1 tab, PO, Bedtime [facility] Melatonin 3 MG Extended Release Tablet 2017-07-07 20:26:00 Yes 3 mg = 1 tab, PO, Bedtime [facility] quetiapine 100 MG Oral Tablet [Seroquel] 2017-07-07 20:26:00 Yes 100 mg = 1 tab, PO, Bedtime, (150 mg at bedtime) [facility] Robitussin 100 mg/5 mL oral liquid 2017-07-07 20:25:00 Yes 200 mg = 10 mL, PO, Q6H, PRN Cough [facility] pregabalin 25 MG Oral Capsule [Lyrica] 2017-07-07 20:25:00 Yes 25 mg = 1 cap, PO, Daily [facility] Nitroglycerin 0.4 MG Sublingual Tablet [Nitrostat] 2017-06 20:25:00 Yes 0.4 mg = 1 tab, SL, Q5Min, If chest pain not relieved in 5 minutes after first dose, seek immediate medical attention [facility] Clonidine Hydrochloride 0.1 MG Oral Tablet 2017-07-07 20:24:00 Yes 160) [facility] Senna S oral tablet 2017-07-07 20:23:00 Yes 2 tab, PO, BID [facility] Misoprostol 0.2 MG Oral Tablet [Cytotec] 2017-07-07 20:23:00 Yes 200 microgram = 1 tab, PO, BID-Before Meals [facility] carvedilol 3.13 MG Oral Tablet [Coreg] 2017-07-07 20:23:00 Yes 3.125 mg = 1 tab, PO, Q12H [facility] Lactulose 667 MG/ML Oral Solution 2017-07-07 20:22:00 Yes 20 gm = 30 mL, PO, Bedtime [facility] Hydralazine Hydrochloride 25 MG Oral Tablet 2017-07-07 20:22:00 Yes 25 mg = 1 tab, PO, Q8H, (Hold for SBP < 130 or HR < 60) [facility] Amlodipine 10 MG Oral Tablet [Norvasc] 2017-07-07 20:21:00 Yes 10 mg = 1 tab, PO, Daily, (Hold for SBP < 130 or HR < 60) [facility] oral tablet 2017-07-07 20:21:00 Yes 1 tab, PO, Daily [facility] pantoprazole 40 MG Enteric Coated Tablet [Protonix] 07-07 20:21:00 Yes 40 mg = 1 tab, PO, Before Breakfast [facility] isosorbide mononitrate 120 mg oral tablet, extended release 2017-07-07 20:20:00 Yes 120 mg = 1 tab, PO, Daily, (Hold for SBP < 130 or HR < 60) [facility] sevelamer carbonate 800 MG Oral Tablet [Renvela] 2017-07-07 20:20:00 Yes 800 mg = 1 tab, PO, TID-Before Meals [facility] lisinopril 20 mg oral tablet 2017-07-07 20:20:00 Yes 20 mg = 1 tab, PO, Daily, (Hold for SBP < 130 or HR < 60) [facility] cefepime 2017-07-07 17:07:00 No Notes: (Same As: Maxipime) MEDICATION WASTE Product Size: 1000 mg Product Wasted: ___ mg [facility] Vancomycin 2017-07-07 17:07:00 No 2001 mg: infuse over 2.5 hours For adult patients only: Round to nearest 250 mg per Medical Staff approval MEDICATION WASTE Product Size: 1000 mg Product Wasted: ___ mg [facility] Levaquin 2017-07-07 17:07:00 No Notes: (Antonio e as:Levaquin) [facility] GI cocktail 2017-07-07 15:42:00 No Notes: G.I. Cocktail = antacid with simethicone 22.5 mL - lidocaine viscous 7.5 mL [facility] Saline Flush 0.9% 2017-07-07 14:47:00 No Notes: Same as: BD Posiflush Sterile [facility] Lisinopril 2016-12-30 14:00:00 No Notes: (Same as: Prinivil, Zestril) [facility] Isosorbide 2016-12-30 14:00:00 No Notes: (Same as:Imdur) "Do Not Crush" Take on empty stomach/ full glass of water. Do not crush [facility] Norvasc 2016-12-30 14:00:00 No Notes: (Same as: [facility]) [facility] Hydralazine Hydrochloride 50 MG Oral Tablet 2016-12-30 03:59:00 No 50 mg = 1 tab, PO, Q8H, hold for sbp < 130 or HR < 60, 0 Refill(s) [facility] Lactulose 667 MG/ML Oral Solution 2016-12-30 03:59:00 Yes 20 gm = 30 mL, PO, Bedtime [facility] lisinopril 20 mg oral tablet 2016-12-30 03:59:00 Yes 20 mg = 1 tab, PO, Daily, hold for sbp < 130 or HR < 60, # 30 tab, 0 Refill(s) [facility] glyBURIDE 5 mg oral tablet 2016-12-30 03:59:00 No 5 mg = 1 tab, PO, BID-Meals, # 60 tab, 1 Refill(s) [facility] oral tablet 2016-12-30 03:59:00 Yes 2 tab, PO, BID [facility] NovoLog 2016-12-30 03:59:00 No sliding scale, SUB-Q, Before Meals & Bedtime, 0 Refill(s) [facility] tramadol hydrochloride 50 MG Oral Tablet 2016-12-30 03:59:00 No 50 mg = 1 tab, PO, TID, PRN Pain Score 4-6 [facility] pregabalin 25 MG Oral Capsule [Lyrica] 2016-12-30 03:59:00 Yes 25 mg = 1 cap, PO, Daily, # 30 cap, 0 Refill(s) [facility] Albuterol 0.833 MG/ML / Ipratropium Brom alejandro 0.167 MG/ML Inhalant Solution [DuoNeb] 2016-12-30 03:59:00 Yes 3 ml, INHALATION, QID, PRN as needed for shortness of breath or wheezing, # 30 ea, 0 Refill(s) [facility] Clonidine Hydrochloride 0.1 MG Oral Tablet 2016-12-30 03:59:00 No 0.1 mg = 1 tab, PO, Q8H, hold for sbp < 130 or HR < 60, 0 Refill(s) [facility] Aquaphor 2016-12-30 03:59:00 Yes 1 a ppl, TOP, Daily, 0 Refill(s) [facility] diphenhydrAMINE 25 mg oral tablet 2016-12-30 03:59:00 No 25 mg = 1 tab, PO, Q6H, PRN as needed for itching, 0 Refill(s) [facility] carvedilol 2016-12-30 02:00:00 No Notes: Give with food. (Same As: Coreg) [facility] Hydralazine Hydrochloride 25 MG Oral Tablet 2016-12-29 22:00:00 No Notes: (Same as: Apresoline) May interfere w/enteral feedings Take With Food. [facility] Clonidine Hydrochloride 0.1 MG Oral Tablet 2016-12-29 22:00:00 No Notes: (Same As: Catapres) [facility] Albuterol 0.833 MG/ML / Ipratropium Brom alejandro 0.167 MG/ML Inhalant Solution [DuoNeb] 2016-12-29 22:00:00 No Notes: (S cheryl as: Duoneb) [facility] D5NS 1,000 mL 2016-12-29 19:12:00 No 1,000 mL, Rate: 20 ml/hr, Infuse over: 50 hr, Route: IV, Dosing Weight 59.091 kg, Total Volume: 1,000, Start date: 12/29/16 14:12:00 CDT, Duration: 30 day, Stop date: 01/28/17 14:11:00 CDT [facility] Ondansetron 2016-12-29 17:34:00 No Notes: (Same as: Savita) MEDICATION WASTE Product Size: 4 mg Product Wasted: ___ mg [facility] Dextrose 50% Syringe 2016-12-29 17:32:00 No 25 gm, 50 mL, Route: IVP, Drug Form: INJ, Dosing Weight 59.091, kg, ONCE, STAT, Start date: 12/29/16 12:32:00 CDT, Stop date: 12/29/16 12:32:00 CDT [facility] [facility] Amlodipine 5 MG Oral Tablet [Norvasc] 2016-08-19 14:34:00 Y es 5 mg = 1 tab, PO, Daily, # 30 tab, 1 Refill(s) [facility] cefdinir 300 MG Oral Capsule [Omnicef] 2016-08-19 14:28:00 Yes 300 mg = 1 cap, PO, Daily, X 5 day, # 5 cap, 0 Refill(s) [facility] Metronidazole 500 MG Oral Tablet [Flagyl] 2016-08-19 14:28:00 Yes 500 mg = 1 tab, PO, Q8H, X 5 day, # 15 tab, 0 Refill(s) [facility] lisinopril 10 mg oral tablet 2016-08-19 14:28:00 Yes 10 mg = 1 tab, PO, Daily, # 90 tab, 1 Refill(s) [facility] Levemir 2016-08-18 14:00:00 No Notes: Same as Levemir Do not hold insulin without contacting prescriber WASTE: F/P - Black; E - Municipal Trash Bin "single patient use only" [facility] Levemir 2016-08-18 02:00:00 No Notes: Same as Levemir Do not hold insulin without contacting prescriber WASTE: F/P - Black; E - Municipal Trash Bin "single patient use only" [facility] Insulin, Aspart, Human 2016-08-17 21:00:00 No Notes: Roll in palms of hands gently; Do not shake vigorously. (Same as: NovoLOG) "single patient use only" WASTE: F/P - Black; E - Municipal Trash Bin Stable for 28 days at room temperature. Expires in days from Date [facility] cefdinir 300 MG Oral Capsule [Omnicef] 2016-08-17 14:00:00 No Notes: (Same As: Omnicef) [facility] Flagyl 2016-08-17 14:00:00 No Notes: (Same as: Flagyl) Take with food/ avoid alcohol [facility] Levemir 2016-08-17 14:00:00 No Notes: Same as Levemir Do not hold insulin without contacting prescriber WASTE: F/P - Black; E - Municipal Trash Bin "single patient use only" [facility] D5W 1,000 mL 2016-08-17 03:16:00 No 1,000 mL, Rate: 50 ml/hr, Infuse over: 20 hr, Route: IV, Dosing Weight 52.739 kg, Total Volume: 1,000, Start date: 08/16/16 22:16:00 CDT, Duration: 30 day, Stop date: 09/15/16 22:15:00 CDT [facility] Levemir 2016-08-16 22:00:00 No Notes: Same as Levemir Do not hold insulin without contacting prescriber WASTE: F/P - Black; E - Municipal Trash Bin "single patient use only" [facility] Insulin, Aspart, Human 2016-08-16 21:00:00 No Notes: Roll in palms of hands gently; Do not shake vigorously. (Same as: NovoLOG) "single patient use only" WASTE: F/P - Black; E - Municipal Trash Bin Stable for 28 days at room temperature. Expires in days from Date [facility] Dextrose 50% Syringe 2016-08-16 17:20:00 No 25 gm, 50 mL, Route: IVP, Drug Form: INJ, Dosing Weight 52.739, kg, PRN, PRN Blood Glucose Results, Start date: 08/16/16 12:20:00 CDT, Duration: 30 day, Stop date: 09/15/16 12:19:00 CDT [facility] Glucagon 2016-08-16 17:20:00 No 1 mg, Route: IM, Drug form: PDR/INJ, PRN, Dosing Weight 52.739, kg, PRN Blood Glucose Results, Start date: 08/16/16 12:20:00 CDT, Duration: 30 day, Stop date: 09/15/16 12:19:00 CDT [facility] potassium chloride 2016-08-16 14:00:00 No Notes: Infuse at a rate of 10 mEq/hr. (Same as: KCL) [facility] Levemir 2016-08-16 14:00:00 No Notes: Same as Levemir Do not hold insulin without contacting prescriber WASTE: F/P - Black; E - Municipal Trash Bin "single patient use only" [facility] Vancomycin 2016-08-15 15:45:00 No 2001 mg: infuse over 2.5 hours MEDICATION WASTE Product Size: 1000 mg Product Wasted: ___ mg [facility] Insulin, Aspart, Human 2016-08-14 21:07:00 No Notes: Roll in palms of hands gently; Do not shake vigorously. (Same as: NovoLOG) "single patient use only" WASTE: F/P - Black; E - Municipal Trash Bin Stable for 28 days at room temperature. Expires in days from Date [facility] Glucagon 2016-08-14 21:07:00 No 1 mg, Route: IM, Drug form: PDR/INJ, PRN, Dosing Weight 52.739, kg, PRN Blood Glucose Results, Start date: 08/14/16 16:07:00 CDT, Duration: 30 day, Stop date: 09/13/16 16:06:00 CDT [facility] Dextrose 50% Syringe 2016-08-14 21:07:00 No 12.5 gm, 25 mL, Route: IVP, Drug Form: INJ, Dosing Weight 52.739, kg, PRN, PRN Blood Glucose Results, Start date: 08/14/16 16:07:00 CDT, Duration: 30 day, Stop date: 09/13/16 16:06:00 CDT [facility] Vancomycin 2016-08-13 19:52:00 No 2001 mg: infuse over 2.5 hours MEDICATION WASTE Product Size: 1000 mg Product Wasted: ___ mg [facility] Morphine 2016-08-13 14:30:00 No Not es: (Same as:MORPhine Sulfate) [facility] Isosorbide 2016-08-13 14:00:00 No Notes: (Same as:Imdur) "Do Not Crush" Take on empty stomach/ full glass of water. Do not crush [facility] Lisinopril 2016-08-13 14:00:00 No 10 mg, Route: PO, Drug form: TAB, Daily, Dosing Weight 59.545, kg, Start date: 08/13/16 9:00:00 CDT, Duration: 30 day, Stop date: 09/11/16 9:00:00 CDT [facility] Hydralazine Hydrochloride 100 MG Oral Tablet 2016-08-13 02:00:00 No 25 mg, Route: PO, Drug form: TAB, Q12H, Dosing Weight 57.045, kg, Start date: 08/12/16 21:00:00 CDT, Duration: 30 day, Stop date: 09/11/16 9:00:00 CDT [facility] Clonidine Hydrochloride 0.1 MG Oral Tablet 2016-08-12 22:00:00 No Notes: (Same As: Catapres) [facility] Calcium Gluconate 2016-08-12 15:42:00 No Notes: WASTE: F/P - Sink; E - Municipal Trash Bin [facility] albumin human 25% intravenous solution 2016-08-12 15:42:00 No Notes: LOT#: Mfg: WASTE: F/P - Red; E -Red (Same as: Albuminar) "blood product derivative" [facility] Oxycodone Hydrochloride 5 MG Oral Tablet 2016-08-12 03:09:00 No Notes: (Same as: Roxicodone) [facility] oral [facility] 2016-08-12 00:20:00 No Notes: Not to exceed 400mg/day. (Same As: Ultram) [facility] pantoprazole 2016-08-11 21:30:00 No Notes: Tablet should not be chewed or crushed. (Same as: Protonix) [facility] vancomycin + sodium chloride 0.9% INJ 250 mL 2016-08-11 17:00:00 No 2001 mg: infuse over 2.5 hours MEDICATION WASTE Product Size: 1000 mg Product Wasted: ___ mg [facility] cefepime 2016-08-11 16:00:00 No Notes: (Same As: Maxipime) MEDICATION WASTE Product Size: 1000 mg Product Wasted: ___ mg [facility] Flagyl 2016-08-11 16:00:00 No Notes: (Same as: Flagyl) Avoid alcohol. [facility] Vancomycin 2016-08-11 15:25:00 No 2001 mg: infuse over 2.5 hours MEDICATION WASTE Product Size: 1000 mg Product Wasted: ___ mg [facility] Zinacef + sodium chloride 0.9% INJ 100 mL 2016-08-11 07:00:00 No Notes: (Same As: Kefurox, Zinacef) MEDICATION WASTE Product Size: 1500 mg Product Wasted: _0__ mg [facility] Seroquel 2016-08-11 02:00:00 No Notes: (Antonio e as: SEROquel) [facility] Saline Flush 0.9% 2016-08-11 02:00:00 No Notes: (Same as: BD Posiflush) [facility] Calcium Chloride 2016-08-11 00:24:00 No Notes: WASTE: F/P - Sink; E - Municipal Trash Bin [facility] Dexmedetomidine 2016-08-10 22:26:00 No 24 hours [facility] pantoprazole 2016-08-10 22:15:00 No Notes: For IV push reconstitute with 10 ml 0.9% sodium chloride and push over 2 minutes. (Same as: Protonix) [facility] Haldol 2016-08-10 22:01:00 No Notes: (Same as: Haldol) [facility] Docusate Sodium 100 MG Oral Capsule 2016-08-10 22:00:00 No Notes: (Same as: Colace) (Do Not Crush) [facility] Hydromorphone 2016-08-10 21:57:00 No 2 mg, 2 mL, Route: IVP, Drug form: INJ, ONCE, Dosing Weight 59.574, kg, Priority: STAT, Start date: 08/10/16 16:57:00 CDT, Stop date: 08/10/16 16:57:00 CDT [facility] potassium phosphate 2016-08-10 21:55:00 No 45 mmol, Route: IVPB, PRN, Dosing Weight 59.574, kg, PRN Abnormal Lab Result, Start date: 08/10/16 16:55:00 CDT, Duration: 30 day, Stop date: 09/09/16 16:54:00 CDT, FOR ICU USE ONLY [facility] sodium phosphate 2016-08-10 21:55:00 No 45 mmol, Route: IVPB, PRN, Dosing Weight 59.574, kg, PRN Abnormal Lab Result, Start date: 08/10/16 16:55:00 CDT, Duration: 30 day, Stop date: 09/09/16 16:54:00 CDT, FOR ICU USE ONLY [facility] Calcium Carbonate 500 MG Chewable Tablet 2016-08-10 21:55:00 No 500 mg, Route: PO, PRN, Dosing Weight 59.574, kg, PRN Abnormal Lab Result, FOR ICU USE ONLY, Start date: 08/10/16 16:55:00 CDT, Duration: 30 day, Stop date: 09/09/16 16:54:00 CDT [facility] Calcium Gluconate 2016-08-10 21:55:00 No 1 gm, Route: IVPB, PRN, Dosing Weight 59.574, kg, PRN Abnormal Lab Result, Start date: 08/10/16 16:55:00 CDT, Duration: 30 day, Stop date: 09/09/16 16:54:00 CDT, FOR ICU USE ONLY [facility] Magnesium Oxide 2016-08-10 21:55:00 No 800 mg, Route: PO, PRN, Dosing Weight 59.574, kg, PRN Abnormal Lab Result, FOR ICU USE ONLY, Start date: 08/10/16 16:55:00 CDT, Duration: 30 day, Stop date: 09/09/16 16:54:00 CDT [facility] Magnesium Sulfate 2016-08-10 21:55:00 No 2 gm, Route: IVPB, PRN, Dosing Weight 59.574, kg, PRN Abnormal Lab Result, Start date: 08/10/16 16:55:00 CDT, Duration: 30 day, Stop date: 09/09/16 16:54:00 CDT, FOR ICU USE ONLY [facility] potassium phosphate-sodium phosphate 250 mg-280 mg-160 mg oral powder for reconstitution 2016-08-10 21:55:00 No 2 pkt, Route: PO, Dosing Weight 59.574, kg, PRN, PRN Abnormal Lab Result, FOR ICU USE ONLY, Start date: 08/10/16 16:55:00 CDT, Duration: 30 day, Stop date: 09/09/16 16:54:00 CDT [facility] potassium chloride 2016-08-10 21:55:00 No 20 mEq, Route: NJ, Drug form: LIQ, PRN, Dosing Weight 59.574, kg, PRN Abnormal Lab Result, Start date: 08/10/16 16:55:00 CDT, Duration: 30 day, Stop date: 09/09/16 16:54:00 CDT, FOR ICU USE ONLY [facility] Saline Flush 0.9% 2016-08-10 21:55:00 No Notes: (Same as: BD Posiflush) [facility] Sodium Chloride 0.0769 MEQ/ML Injectable Solution 2016-08-10 21:32:00 No 1,000 mL, Rate: 75 m l/hr, Infuse over: 13.3 hr, Route: IV, Dosing Weight 59.574 kg, Total Volume: 1,000, Start date: 08/10/16 16:32:00 CDT, Duration: 1 doses or times, Stop date: 08/11/16 5:49:00 CDT [facility] Saline Flush 0.9% 2016-08-10 21:32:00 No Notes: (Same as: BD Posiflush) [facility] Dulcolax Laxative 2016-08-10 21:32:00 No Notes: (Same As: Dulcolax, Correctol) (Do Not Crush) "Do Not Crush" [facility] Ondansetron 2016-08-10 21:32:00 No Notes: (Same as: Zofran) MEDICATION WASTE Product Size: 4 mg Product Wasted: _0__ mg [facility] Temazepam 2016-08-10 21:32:00 No Notes: (Sa me As: Restoril) [facility] morphine Sulfate (ANES) 2016-08-10 21:23:00 No Route: IV, Drug form: INJ, ONCE, Stop date: 08/10/16 16:23:00 CDT [facility] phenylephrine (ANES) 2016-08-10 21:11:00 No Route: IV, Drug form: INJ, ONCE, Stop date: 08/10/16 16:11:00 CDT [facility] ePHEDrine (ANES) 2016-08-10 21:06:00 No Route: IV, Drug form: INJ, ONCE, Stop date: 08/10/16 16:06:00 CDT [facility] vecuronium (ANES) 2016-08-10 20:31:00 No Route: IV, Drug form: INJ, ONCE, Stop date: 08/10/16 15:31:00 CDT [facility] midazolam (ANES) 2016-08-10 20:26:00 No Route: IV, Drug form: SOLN, ONCE, Stop date: 08/10/16 15:26:00 CDT [facility] fentaNYL (ANES) 2016-08-10 20:26:00 No Route: IV, Drug form: INJ, ONCE, Stop date: 08/10/16 15:26:00 CDT [facility] propofol (ANES) 2016-08-10 20:26:00 No Route: IV, Drug form: INJ, ONCE, Stop date: 08/10/16 15:26:00 CDT [facility] sodium chloride 0.9% 500 ml INJ (ANES) 2016-08-10 20:05:00 No Route: IV, Total Volume: 500, Start date: 08/10/16 15:05:00 CDT, Stop date: 08/10/16 16:05:00 CDT [facility] sodium chloride 0.9% 100 ml INJ (ANES) + cefuroxime (ANES) ( ANES) 2016-08-10 19:30:00 No Route: IV, Drug form: INJ, Start date: 08/10/16 14:30:00 CDT, Stop date: 08/10/16 15:30:00 CDT [facility] Isolyte S (PH 7.4) 1000 mL (ANES) 2016-08-10 19:03:00 No Route: IV, Total Volume: 1,000, Start date: 08/10/16 14:03:00 CDT, Stop date: 08/10/16 15:03:00 CDT [facility] vancomycin (ANES) (ANES) 2016-08-10 19:00:00 No Route: IV, Drug form: INJ, Start date: 08/10/16 14:00:00 CDT, Stop date: 08/10/16 15:00:00 CDT [facility] Cefazolin 2016-08-10 02:00:00 No Notes: Antonio e as: Ancef [facility] Hydralazine Hydrochloride 100 MG Oral Tablet 2016-08-10 02:00:00 No Notes: (Same as: Apresoline) May interfere w/enteral feedings - Take With Food [facility] Restoril 2016-08-10 01:38:00 No Notes: (Antonio e As: Restoril) [facility] tramadol hydrochloride 50 MG Oral Tablet 2016-08-09 17:34:00 No Notes: Not to exceed 400mg/day. (Same As: Ultram) [facility] Diphenhydramine 2016-08-09 17:32:00 No Notes: (Same as: Benadryl) [facility] dextromethorphan-guaiFENesin 10 mg-100 mg/5 mL oral liquid 2016-08-09 17:32:00 No Notes: (de xtromethorphan-guaifenesin 10-100mg/5ml 10 ml oral SOLN ud) (Same as: Robitussin DM) [facility] Ondans[facility]ron 2016-08-09 17:32:00 No Notes: (Same as: Zofran) MEDICATION WASTE Product Size: 4 mg Product Wasted: ___ mg [facility] Bisacodyl 2016-08-09 17:32:00 No Notes: (Same As: Dulcolax, Bisco-Lax) [facility] Al hydroxide/Mg hydroxide/simethicone 200 mg-200 mg-20 mg/5 mL oral suspension 2016-08-09 17:32:00 No Note s: (aluminum hydroxide-magnesium hyd- simethicone 212-835-55ln/5ml 30 ml ud MEEK) [facility] Simethicone 2016-08-09 17:32:00 No 80 mg, Route: PO, Drug form: TAB, Q6H, Dosing Weight 57.045, kg, PRN Gas, Start date: 08/09/16 12:32:00 CDT, Duration: 2 doses or times, Stop date: Limited # of times [facility] Temazepam 2016-08-09 17:32:00 No Notes: (Sa me As: Restoril) [facility] Famotidine 20 MG Oral Tablet [Pepcid] 2016-08-09 14:00:00 N o Notes: (Same as: Pepcid) [facility] Amlodipine 2016-08-09 14:00:00 No Notes: (S cheryl as: Norvasc) [facility] Lisinopril 2016-08-09 14:00:00 No Notes: (Same as: Prinivil, Zestril) [facility] Isosorbide 2016-08-09 14:00:00 No Notes: (Same as:Imdur) "Do Not Crush" Take on empty stomach/ full glass of water. Do not crush [facility] Glyburide 2016-08-09 14:00:00 No Notes: Non-Formulary (Same as: Micronase, Diabeta) Take with meals. [facility] carvedilol 2016-08-09 02:00:00 No Notes: Give with food. (Same As: Coreg) [facility] Clonidine Hydrochloride 0.1 MG Oral Tablet 2016-08-08 22:00:00 No Notes: (Same As: Catapres) [facility] Albuterol 0.833 MG/ML / Ipratropium Brom alejandro 0.167 MG/ML Inhalant Solution [DuoNeb] 2016-08-08 22:00:00 No Notes: (S cheryl as: Duoneb) [facility] Hydralazine Hydrochloride 25 MG Oral Tablet 2016-08-08 22:00:00 No Notes: (Same as: Apresoline) May interfere w/enteral feedings Take With Food. [facility] Nitroglycerin 0.4 MG Sublingual Tablet 2016-08-08 19:27:00 No Notes: (Same as:Nitroquick, Nitrostat) "Do Not Crush" Sublingual tablet [facility] Lovenox 2016-08-08 16:00:00 No Notes: (Same as: Lovenox) [facility] emollients, topical ointment 2016-08-08 16:00:00 No Notes: (mineral oil,petrolatum,lanolin,triethanolamine 180ml LOT) (Same as:Lubriderm Lotion) [facility] Labetalol 2016-08-08 14:24:00 No Notes: (Same as: Normodyne, Trandate) Push over 2 minutes Give bolus over 2-3 minutes. [facility] Insulin, Aspart, Human 2016-08-08 13:22:00 No Notes: Roll in palms of hands gently; Do not shake vigorously. (Same as: NovoLOG) "single patient use only" WASTE: F/P - Black; E - Municipal Trash Bin Stable for 28 days at room temperature. Expires in days from Date [facility] Dextrose 50% Syringe 2016-08-08 13:22:00 No 25 gm, 50 mL, Route: IVP, Drug Form: INJ, Dosing Weight 61.364, kg, PRN, PRN Blood Glucose Results, Start date: 08/08/16 8:22:00 CDT, Duration: 30 day, Stop date: 09/07/16 8:21:00 CDT [facility] Glucagon 2016-08-08 13:22:00 No 1 mg, Route: IM, Drug form: PDR/INJ, PRN, Dosing Weight 61.364, kg, PRN Blood Glucose Results, Start date: 08/08/16 8:22:00 CDT, Duration: 30 day, Stop date: 09/07/16 8:21:00 CDT [facility] Sodium Chloride 0.9% IV 2016-08-08 11:57:00 No 250 mL, Route: IVPB, Start date: 08/08/16 6:57:00 CDT, Duration: 30 day, Stop date: 09/07/16 6:56:00 CDT, PRN Line Flush [facility] BD Normal Saline Flush 2016-08-08 11:57:00 No Notes: (Same as: BD Posiflush) [facility] Saline Flush 0.9% 2016-08-08 11:47:00 No 10 mL, Route: IVP, Drug Form: INJ, Dosing Weight 61.364, kg, PRN, PRN Line Flush, Start date: 08/08/16 6:47:00 CDT, Duration: 30 day, Stop date: 09/07/16 6:46:00 CDT [facility] Albuterol 0.833 MG/ML / Ipratropium Brom alejandro 0.167 MG/ML Inhalant Solution [DuoNeb] 2016-07-25 23:25:00 Yes 3 mL, NEB , QID, 0 Refill(s) [facility] Albuterol 0.833 MG/ML / Ipratropium Brom alejandro 0.167 MG/ML Inhalant Solution [DuoNeb] 2016-07-25 19:56:00 No Notes: (S cheryl as: Duoneb) [facility] Lisinopril 2016-07-25 14:00:00 No Notes: (Same as: Prinivil, Zestril) [facility] Hydralazine Hydrochloride 25 MG Oral Tablet 2016-07-25 14:00:00 No Notes: (Same as: Apresoline) May interfere w/enteral feedings Take With Food. [facility] Glyburide 2016-07-25 14:00:00 No Notes: Non-Formulary (Same as: Micronase, Diabeta) Take with meals. [facility] Famotidine 20 MG Oral Tablet [Pepcid] 2016-07-25 14:00:00 N o Notes: (Same as: Pepcid) [facility] Clonidine Hydrochloride 0.1 MG Oral Tablet 2016-07-25 14:00:00 No Notes: (Same As: Catapres) [facility] Amlodipine 2016-07-25 14:00:00 No Notes: (S cheryl as: Norvasc) [facility] carvedilol 2016-07-25 14:00:00 No Notes: Give with food. (Same As: Coreg) [facility] Isosorbide 2016-07-25 12:30:00 No Notes: (Same as:Imdur) "Do Not Crush" Take on empty stomach/ full glass of water. Do not crush [facility] Albuterol 0.833 MG/ML / Ipratropium Brom alejandro 0.167 MG/ML Inhalant Solution [DuoNeb] 2016-07-25 08:52:00 No Notes: (S cheryl as: Duoneb) [facility] Streptococcus pneumoniae serotype 1 caps ular antigen diphtheria [id number] protein conjugate vaccine / Streptococcus pneumoniae serotype 14 capsular antigen diphtheria [id number] protein conjugate vaccine / Streptococcus pneumoniae serotype 18C capsular antigen d 2016-07-25 08:27:39 No Notes: Lightly roll vial (DO NOT SHAKE) before administration. (Same as: Prevnar 13) [facility] Nitroglycerin 0.4 MG Sublingual Tablet 2016-07-25 07:39:00 No Notes: (Same as:Nitroqurenée Nitrostat) "Do Not Crush" Sublingual tablet [facility] Insulin, Aspart, Human 2016-07-25 07:38:00 No Notes: Roll in palms of hands gently; Do not shake vigorously. (Same as: NovoLOG) "single patient use only" WASTE: F/P - Black; E - Municipal Trash Bin Stable for 28 days at room temperature. Expires in days from Date [facility] Dextrose 50% Syringe 2016-07-25 07:38:00 No 12.5 gm, 25 mL, Route: IVP, Drug Form: INJ, Dosing Weight 63.636, kg, PRN, PRN Blood Glucose Results, Start date: 07/25/16 2:38:00 CDT, Duration: 30 day, Stop date: 08/24/16 2:37:00 CDT [facility] Glucagon 2016-07-25 07:38:00 No 1 mg, Route: IM, Drug form: PDR/INJ, PRN, Dosing Weight 63.636, kg, PRN Blood Glucose Results, Start date: 07/25/16 2:38:00 CDT, Duration: 30 day, Stop date: 08/24/16 2:37:00 CDT [facility] Acetaminophen 2016-07-25 06:26:00 No Notes: Do not exceed 4 gm/day. (Same as: Tylenol) [facility] Acetaminophen 325 MG / Hydrocodone Bitartrate 5 MG Oral Tabl et 2016-07-25 06:26:00 No Notes: (Sa me as: Cotton 325/5) Do not exceed 4gm/day of acetaminophen. [facility] Morphine 2016-07-25 06:26:00 No Not es: (Same as:MORPhine Sulfate) [facility] Ondansetron 2016-07-25 06:26:00 No Notes: (Same as: Savita) MEDICATION WASTE Product Size: 4 mg Product Wasted: ___ mg [facility] Hydralazine 2016-07-25 06:25:00 No Notes: (Same as: Apresoline) Push over 5 minutes [facility] Saline Flush 0.9% 2016-07-25 03:40:00 No Notes: Same as: BD Posiflush Sterile [facility] albumin human 25% intravenous solution 2015-11-06 21:18:00 No Notes: LOT#: Mfg: WASTE: F/P - Red; E -Red (Same as: Albuminar) "blood product derivative" [facility] Docusate Sodium 100 MG Oral Capsule [Colace] 2015-11-05 22:00:00 No Notes: (Same as: Colace) (Do Not Crush) [facility] Procrit 2015-11-04 22:00:00 No Notes: MEDICATION WASTE Product Size: 09373 unit Product Wasted: ___ unit [facility] Glyburide 2015-11-04 13:00:00 No Notes: (Same as: Micronase, Diabeta) Take with meals. [facility] ity heparin 2015-11-03 14:00:00 No Notes: porci ne heparin [facility] Melatonin 3 MG Extended Release Tablet 2015-11-03 02:00:00 No Notes: (Same as: Melatonin) [facility] Insulin, Aspart, Human 2015-11-02 14:55:00 No Notes: Roll in palms of hands gently; Do not shake vigorously. (Same as: NovoLOG) "single patient use only" WASTE: F/P - Black; E - Municipal Trash Bin Stable for 28 days at room temperature. Expires in days from Date [facility] Glucagon 2015-11-02 14:55:00 No 1 mg, Route: IM, Drug form: PDR/INJ, PRN, Dosing Weight 79.6, kg, PRN Blood Glucose Results, Start date: 11/02/15 9:55:00 CDT, Duration: 30 day, Stop date: 12/02/15 9:54:00 CDT [facility] Dextrose 50% Syringe 2015-11-02 14:55:00 No 12.5 gm, 25 mL, Route: IVP, Drug Form: INJ, Dosing Weight 79.6, kg, PRN, PRN Blood Glucose Results, Start date: 11/02/15 9:55:00 CDT, Duration: 30 day, Stop date: 12/02/15 9:54:00 CDT [facility] Lisinopril 2015-11-02 14:00:00 No Notes: (Same as: Prinivil, Zestril) [facility] Isosorbide 2015-11-02 14:00:00 No Notes: (Same as:Imdur) "Do Not Crush" Take on empty stomach/ full glass of water. Do not crush [facility] Glyburide 2015-11-02 14:00:00 No Notes: (Same as: Micronase, Diabeta) Take with meals. [facility] Famotidine 20 MG Oral Tablet [Pepcid] 2015-11-02 14:00:00 N o Notes: (Same as: Pepcid) [facility] Clonidine Hydrochloride 0.1 MG Oral Tablet 2015-11-02 14:00:00 No Notes: (Same As: Catapres) [facility] carvedilol 2015-11-02 14:00:00 No Notes: Give with food. (Same As: Coreg) [facility] Amlodipine 2015-11-02 14:00:00 No Notes: (S cheryl as: Norvasc) [facility] Hydralazine Hydrochloride 50 MG Oral Tablet 2015-11-02 11:00:00 No Notes: (Same as: Apresoline) May interfere w/enteral feedings Take With Food [facility] Sodium Chloride 0.9% IV 2015-11-02 07:18:00 No 25 mL, Route: IVP, Start date: 11/02/15 2:18:00 CDT, Duration: 30 day, Stop date: 12/02/15 2:17:00 CDT, PRN Line Flush [facility] BD Normal Saline Flush 2015-11-02 07:18:00 No Notes: (Same as: BD Posiflush) [facility] Dilaudid 2015-11-02 06:56:00 No Notes: (Antonio e as: Dilaudid) [facility] Nitroglycerin 0.4 MG Sublingual Tablet 2015-11-02 06:55:00 No Notes: (Same as:Nitroquick, Nitrostat) "Do Not Crush" Sublingual tablet [facility] Hydromorphone Hydrochloride 4 MG Oral Tablet [Dilaudid] 2015-11-02 03:28:00 No 4 mg = 1 tab, PO, Q4H, PRN Pain Score 4- 6, 0 Refill(s) [facility] Kayexalate 2015-11-02 02:18:00 No Notes: (sodium polystyrene sulfonate 15 gm/60 ml MEEK) Shake well before use. (Same as: Kayexalate SPS) [facility] Ondansetron 2015-11-02 02:16:00 No Notes: (Same as: Zofran) MEDICATION WASTE Product Size: 4 mg Product Wasted: ___ mg [facility] Docusate 2015-11-02 02:16:00 No Notes: (Same as: Colace) (Do Not Crush) [facility] Morphine 2015-11-02 02:16:00 No Not es: (Same as:MORPhine Sulfate) [facility] Kayexalate 2015-10-27 19:25:00 No Notes: (sodium polystyrene sulfonate 15 gm/60 ml MEEK) Shake well before use. (Same as: Kayexalate, SPS) [facility] Kayexalate 2015-10-27 15:17:00 No Notes: (sodium polystyrene sulfonate 15 gm/60 ml MEEK) Shake well before use. (Same as: Kayexalate, SPS) [facility] heparin 2015-10-26 21:00:00 No Notes: porci ne heparin [facility] Coreg 2015-10-26 14:00:00 No Notes: Give with food. (Same As: Coreg) [facility] cloNIDine 0.1 mg oral tablet 2015-10-26 10:00:00 No Notes: (Same As: Catapres) [facility] albumin human 2015-10-25 19:23:00 No Notes: Lot #: Mfg: (Same as: Plasbumin-25) "blood product derivative" WASTE: F/P - Red; E -Red MEDICATION WASTE Product Size: 25 gm Product Wasted: ___ gm [facility] Sodium Chloride 0.9% IV 2015-10-25 19:23:00 No 1,000 mL, Route: IV, Start date: 10/25/15 14:23:00 CDT, Duration: 30 day, Stop date: 11/24/15 14:22:00 CDT, PRN Dialysis [facility] Hydralazine Hydrochloride 50 MG Oral Tablet 2015-10-25 17:20:00 Yes 50 mg = 1 tab, PO, Q6H, # 120 tab, 0 Refill(s) [facility] isosorbide mononitrate 120 mg oral tablet, extended release 2015-10-25 17:17:16 Yes 120 mg = 1 tab, PO, QAM, # 30 tab, 2 Refill(s) [facility] Hydralazine Hydrochloride 25 MG Oral Tablet 2015-10-25 17:17:03 Yes 50 mg = 2 tab, PO, TID, # 90 tab, 2 Refill(s) [facility] amLODIPine 10 mg oral tablet 2015-10-25 17:16:54 Yes 10 mg = 1 tab, PO, Daily, # 30 tab, 2 Refill(s) [facility] Nitroglycerin 0.4 MG Sublingual Tablet 2015-10-25 17:16:00 Yes 0.4 mg = 1 tab, SL, Q5Min, PRN Chest Pain, # 100 tab, 0 Refill(s) [facility] glyBURIDE 5 mg oral tablet 2015-10-25 17:16:00 Yes 5 mg = 1 tab, PO, Daily, # 30 tab, 0 Refill(s) [facility] Clonidine Hydrochloride 0.1 MG Oral Tablet 2015-10-25 17:16:00 Yes 0.1 mg = 1 tab, PO, TID, # 90 tab, 0 Refill(s) [facility] lisinopril 20 mg oral tablet 2015-10-25 17:16:00 Yes 40 mg = 2 tab, PO, Daily, # 60 tab, 0 Refill(s) [facility] Famotidine 20 MG Oral Tablet [Pepcid] 2015-10-25 17:16:00 Y es 20 mg = 1 tab, PO, Daily, # 30 tab, 0 Refill(s) [facility] carvedilol 3.125 mg oral tablet 2015-10-25 17:16:00 Yes 3.125 mg = 1 tab, PO, Q12H, # 60 tab, 0 Refill(s) [facility] Hydralazine 2015-10-24 10:09:00 No Notes: (Same as: Apresoline) Push over 5 minutes [facility] Clonidine Hydrochloride 0.2 MG Oral Tablet 2015-10-24 10:08:00 No Notes: (Same As: Catapres) [facility] 2015-10-23 14:00:00 No Notes: (Same as: Norvasc) [facility] Clonidine 2015-10-23 14:00:00 No Notes: (Sa me As: Catapres) [facility] Hydralazine 2015-10-23 05:31:00 No Notes: (Same as: Apresoline) Push over 5 minutes [facility] Clonidine 2015-10-23 05:31:00 No Notes: (Sa me As: Catapres) [facility] Clonidine 2015-10-23 02:00:00 No Notes: (Sa me As: Catapres) [facility] Hydralazine 2015-10-22 17:00:00 No Notes: (Same as: Apresoline) May interfere w/enteral feedings Take With Food [facility] Glyburide 2015-10-22 14:00:00 No Notes: (Same as: Micronase, Diabeta) Take with meals. [facility] Lisinopril 2015-10-22 14:00:00 No Notes: (Same as: Prinivil, Zestril) [facility] Morphine 2015-10-22 07:08:00 No Not es: (Same as:MORPhine Sulfate) [facility] Lisinopril 2015-10-22 06:35:00 No Notes: (Same as: Prinivil, Zestril) [facility] Acetaminophen 325 MG / Hydrocodone Bitartrate 5 MG Oral Tabl et [Cotton 5/325] 2015-10-22 06:33:00 No Notes: (Same as: Cotton 325/5) Do not exceed 4gm/day of acetaminophen. [facility] heparin 2015-10-21 20:35:00 No Notes: porci ne heparin [facility] Imdur 2015-10-21 18:38:00 No Notes: (Same as:Imdur) "Do Not Crush" Take on empty stomach/ full glass of water. Do not crush [facility] Saline Flush 0.9% 2015-10-21 14:00:00 No Notes: Same as: BD Posiflush Sterile [facility] Albuterol 0.83 MG/ML Inhalant Solution 2015-10-21 05:00:00 No Notes: SEE RT DOCUMENTATION (Same as: Proventil) [facility] Insulin, Aspart, Human 2015-10-21 03:02:00 No Notes: Roll in palms of hands gently; Do not shake vigorously. (Same as: NovoLOG) "single patient use only" WASTE: F/P - Black; E - Municipal Trash Bin Stable for 28 days at room temperature. Expires in days from Date [facility] Dextrose 50% Syringe 2015-10-21 03:02:00 No 25 gm, 50 mL, Route: IVP, Drug Form: INJ, Dosing Weight 81.818, kg, PRN, PRN Blood Glucose Results, Start date: 10/20/15 22:02:00 CDT, Duration: 30 day, Stop date: 11/19/15 22:01:00 CDT [facility] Glucagon 2015-10-21 03:02:00 No 1 mg, Route: IM, Drug form: PDR/INJ, PRN, Dosing Weight 81.818, kg, PRN Blood Glucose Results, Start date: 10/20/15 22:02:00 CDT, Duration: 30 day, Stop date: 11/19/15 22:01:00 CDT [facility] Saline Flush 0.9% 2015-10-21 03:00:00 No Notes: Same as: BD Posiflush Sterile [facility] Nitroglycerin 2015-10-21 03:00:00 No Notes: (Same as:Nitroquick, Nitrostat) "Do Not Crush" Sublingual tablet [facility] Ondansetron 2015-10-21 03:00:00 No Notes: ( Same as: Zofran) [facility] Morphine 2015-10-21 03:00:00 No Not es: (Same as:MORPhine Sulfate) [facility] Insulin, Aspart, Human 2015-10-21 02:17:00 No Notes: Roll in palms of hands gently; Do not shake vigorously. (Same as: NovoLOG) "single patient use only" WASTE: F/P - Black; E - Municipal Trash Bin Stable for 28 days at room temperature. Expires in days from Date [facility] Glucagon 2015-10-21 02:17:00 No 1 mg, Route: IM, Drug form: PDR/INJ, PRN, Dosing Weight 81.818, kg, PRN Blood Glucose Results, Start date: 10/20/15 21:17:00 CDT, Duration: 30 day, Stop date: 11/19/15 21:16:00 CDT [facility] Dextrose 50% Syringe 2015-10-21 02:17:00 No 25 gm, 50 mL, Route: IVP, Drug Form: INJ, Dosing Weight 81.818, kg, PRN, PRN Blood Glucose Results, Start date: 10/20/15 21:17:00 CDT, Duration: 30 day, Stop date: 11/19/15 21:16:00 CDT [facility] Insulin regular 2015-10-21 00:54:00 No 60 units) WASTE: F/P - Black; E - Municipal Trash Bin Stable for 28 days at room temperature Expires in days from Date [facility] Morphine 2015-10-21 00:52:00 No Not es: (Same as:MORPhine Sulfate) [facility] Insulin regular 2015-10-21 00:49:00 No 60 units) WASTE: F/P - Black; E - Municipal Trash Bin Stable for 28 days at room temperature Expires in days from Date [facility] Kayexalate 2015-10-21 00:49:00 No Notes: (sodium polystyrene sulfonate 15 gm/60 ml MEEK) Shake well before use. (Same as: Jumanaxarod, SPS) [facility] Lasix 2015-10-20 23:55:00 No Notes: (Same as: Lasix) MEDICATION WASTE Product Size: 40 mg Product Wasted: ___ mg [facility] Nitroglycerin 2015-10-20 23:28:00 No Notes: (Same as:Aiden Muñoztat) "Do Not Crush" Sublingual tablet [facility] Saline Flush 0.9% 2015-10-20 23:28:00 No Notes: Same as: BD Posiflush Sterile [facility] Imdur 2015-05-21 15:00:00 No Notes: (Same as:Imdur) "Do Not Crush" Take on empty stomach/ full glass of water. Do not crush [facility] lisinopril 5 mg oral tablet 2015-05-20 23:25:00 Yes 5 mg = 1 tab, PO, Daily, # 30 tab, 2 Refill(s) [facility] amLODIPine 10 mg oral tablet 2015-05-20 19:11:00 Yes 10 mg = 1 tab, PO, Daily, # 30 tab, 2 Refill(s) [facility] isosorbide mononitrate 120 mg oral tablet, extended release 2015-05-20 19:11:00 Yes 120 mg = 1 tab, PO, QAM, # 30 tab, 2 Refill(s) [facility] tramadol hydrochloride 50 MG Oral Tablet 2015-05-20 19:11:00 Yes 50 mg = 1 tab, PO, Q6H, PRN Pain, X 10 day, # 40 tab, 0 Refill(s) [facility] Hydralazine Hydrochloride 25 MG Oral Tablet 2015-05-20 19:11:00 Yes 50 mg = 2 tab, PO, TID, # 90 tab, 2 Refill(s) [facility] carvedilol 12.5 mg oral tablet 2015-05-20 19:11:00 Yes 12.5 mg = 1 tab, PO, Q12H, # 60 tab, 2 Refill(s) [facility] bumetanide 1 mg oral tablet 2015-05-20 19:11:00 Yes 1 mg = 1 tab, PO, Q8H, # 90 tab, 2 Refill(s) [facility] Nystatin 487551 UNT/ML / Triamcinolone Acetonide 1 MG/ML Top ical Cream 2015-05-20 19:00:00 No Notes: For External Use Only (Same as:Mycolog II cream) [facility] nystatin topical 100,000 units/g cream 2015-05-20 19:00:00 No Notes: (Same as:Mycostatin, Nilstat) For external use only. [facility] triamcinolone topical 0.1% cream 2015-05-20 19:00:00 No Notes: (triamcinolone acetonide 0.1% 15 gm top CRM) (Same As: Kenalog) [facility] Bacitracin / Polymyxin B 2015-05-20 19:00:00 No Notes: (Same As: Polysporin) [facility] Dilaudid 2015-05-20 18:07:00 No Notes: Same as: Dilaudid [facility] lidocaine 1% 2015-05-20 17:53:00 No 1 vial, Route: SUB-Q, Dosing Weight 80.3, kg, ONCE, PRN, Start date: 05/20/15 11:53:00, Stop date: 05/20/15 11:53:00, for procedure [facility] lidocaine 1% injectable solution 2015-05-20 17:50:00 Yes Notes: (Same as: Xylocaine) [facility] nter Hydralazine Hydrochloride 25 MG Oral Tablet 2015-05-19 18:00:00 No Notes: (Same as: Apresoline) May interfere w/enteral feedings Take With Food. [facility] cloNIDine 0.1 mg oral tablet 2015-05-19 03:00:00 No Notes: (Same As: Catapres) [facility] Hydralazine Hydrochloride 10 MG Oral Tablet 2015-05-18 18:00:00 No Notes: (Same as: Apresoline) May interfere w/enteral feedings. Take With Food [facility] Insulin, Aspart, Human 2015-05-18 02:47:00 No Notes: Roll in palms of hands gently; Do not shake vigorously. (Same as: NovoLOG) "single patient use only" WASTE: F/P - Black; E - Municipal Trash Bin Stable for 28 days at room temperature. Expires in days from Date [facility] Bumex 2015-05-17 22:00:00 No Notes: (Same A s: Bumex) [facility] Imdur 2015-05-17 20:49:00 No Notes: (Same as:Imdur) "Do Not Crush" Take on empty stomach/ full glass of water. Do not crush [facility] Sodium Bicarbonate 2015-05-17 17:49:00 No 1 0 g, PO, TID [facility] NPH Insulin, Human 70 UNT/ML / Regular I nsulin, Human 30 UNT/ML Injectable Suspension [Humulin] 2015-05-17 17:49:00 Yes See Instructions, inject 15 units SUB-Q QAM and inject 10 unit SUB-Q QPM [facility] torsemide 100 mg oral tablet 2015-05-17 17:49:00 No 100 mg = 1 tab, PO, BID [facility] 24 HR Nifedipine 90 MG Extended Release Tablet [Nifediac] 2015-05-17 17:49:00 No 90 mg = 1 tab, PO, BID [facility] Famotidine 20 MG Oral Tablet [Pepcid] 2015-05-17 17:49:00 Y es 20 mg = 1 tab, PO, Daily [facility] quetiapine 25 MG Oral Tablet [Seroquel] 2015-05-17 17:49:00 Yes 25 mg = 1 tab, PO, Daily [facility] Tamsulosin hydrochloride 0.4 MG Oral Capsule [Flomax] 2015-05-17 17:49:00 Yes 0.4 mg = 1 cap, PO, Daily [facility] isosorbide mononitrate 30 mg oral tablet, extended release 2015-05-17 17:49:00 No 30 mg = 1 tab, PO, Daily [facility] Levetiracetam 500 MG Oral Tablet [Keppra] 2015-05-17 17:49:00 No 500 mg = 1 tab, PO, BID [facility] nt metoprolol tartrate 25 mg oral tablet 2015-05-17 17:49:00 N o 12.5 mg = 0.5 tab, PO, Q12H [facility] nter Clonidine Hydrochloride 0.1 MG Oral Tablet 2015-05-17 15:00:00 No Notes: (Same As: Catapres) [facility] Hydralazine 2015-05-17 05:12:00 No Notes: (Same as: Apresoline) Push over 5 minutes [facility] Coreg 2015-05-17 03:00:00 No Notes: Give with food. (Same As: Coreg) [facility] Bumex 2015-05-16 22:00:00 No Notes: (Same A s: Bumex) [facility] Imdur 2015-05-16 18:00:00 No Notes: (Same as:Imdur) "Do Not Crush" Take on empty stomach/ full glass of water. Do not crush [facility] Bumex 2015-05-16 15:00:00 No Notes: (Same A s: Bumex) [facility] Tessalon Perles 2015-05-16 12:00:00 No Notes: (Same As: Prabha Lopez) "Do Not Crush" [facility] Benadryl 2015-05-16 04:33:00 No Notes: (Antonio e as: Benadryl) [facility] Menthol 0.0044 MG/MG / Zinc Oxide 0.2 MG /MG Topical Ointment [Calmoseptine Ointment] 2015-05-16 04:32:00 No Notes: ( Same as: Calmoseptine) [facility] Docusate Sodium 50 MG Oral Capsule [Colace] 2015-05-16 03:00:00 No Notes: (Same as: Colace) (Do Not Crush) [facility] Lon 24 gm packet 2015-05-15 23:00:00 No Notes: (Same as: Lon Ball) [facility] Hydralazine 2015-05-15 22:33:00 No Notes: (Same as: Apresoline) Push over 5 minutes [facility] Labetalol 2015-05-15 22:31:00 No 20 mg, 4 mL, Route: IVP, Drug form: INJ, Q10Min, Dosing Weight 80.3, kg, PRN Other -See Comment, Start date: 05/15/15 16:31:00, Duration: 30 day, Stop date: 06/14/15 17:30:00 [facility] Docusate Sodium 50 MG / sennosides, SNF 8.6 MG Oral Tablet 2015-05-15 22:29:00 No Notes: (Same as Senokot-S) Equ iv. to Gita-Colace. [facility] senna 8.6 mg oral tablet 2015-05-15 22:29:00 No 1 tab, Route: PO, Drug Form: TAB, Dosing Weight 80.3, kg, Bedtime, PRN Constipation, Start date: 05/15/15 16:29:00, Duration: 30 day, Stop date: 06/14/15 16:28:00 [facility] Furosemide 40 MG Oral Tablet [Lasix] 2015-05-15 22:00:00 No Notes: (Same as: Lasix) MEDICATION WASTE Product Size: 40 mg Product Wasted: ___ mg [facility] Coreg 2015-05-15 19:00:00 No Notes: Give with food. (Same As: Coreg) [facility] senna 8.6 mg oral tablet 2015-05-15 17:45:00 No Notes: (Same as: Senokot) [facility] Amlodipine 2015-05-15 15:00:00 No Notes: (S cheryl as: Norvasc) [facility] pneumococcal capsular polysaccharide typ e 1 vaccine / pneumococcal capsular polysaccharide type 10A vaccine / pneumococcal capsular polysaccharide type 11A vaccine / pneumococcal capsular polysaccharide type 12F vaccine / pneumococcal capsular polysacchar 2015-05-15 15:00:00 No Notes: (Same as: Pneumovax 23) Refrigerate [facility] influenza virus vaccine, inactivated 2015-05-15 15:00:00 No Notes: (Same as: Fluzone Quadrivalent) For 3 years of age and older (0.5 mL IM) Shake well before use [facility] Acetaminophen 325 MG / Hydrocodone Rg trate 7.5 MG Oral Tablet [Cotton 7.5/325] 2015-05-15 13:26:00 No Notes: Same as Cotton 325-7.5mg Do not exceed 4gm/day of acetaminophen. [facility] Magnesium Sulfate 2015-05-15 12:37:00 No 1 gm, Route: IVPB, Drug form: INJ, ONCE, Dosing Weight 80.3, kg, Start date: 05/15/15 6:37:00, Stop date: 05/15/15 6:37:00 [facility] Albuterol 0.833 MG/ML / Ipratropium Brom alejandor 0.167 MG/ML Inhalant Solution [DuoNeb] 2015-05-15 09:39:00 No Notes: (S cheryl as: Duoneb) [facility] Clonidine 2015-05-15 05:01:00 No Notes: (Sa me As: Catapres) [facility] Amlodipine 2015-05-15 03:25:00 No Notes: (S cheryl as: Norvasc) [facility] Acetaminophen 325 MG / Hydrocodone Rg trate 7.5 MG Oral Tablet [Cotton 7.5/325] 2015-05-14 23:49:00 No Notes: Same as Cotton 325-7.5mg Do not exceed 4gm/day of acetaminophen. [facility] Protonix 2015-05-14 22:30:00 No Notes: Tablet should not be chewed or crushed. (Same as: Protonix) [facility] Hydralazine 2015-05-14 22:00:00 No Notes: (Same as: Apresoline) Push over 5 minutes [facility] Nitroglycerin 0.4 MG Sublingual Tablet 2015-05-14 18:52:00 No Notes: (Same as:Nitroquick, Nitrostat) "Do Not Crush" Sublingual tablet [facility] Furosemide 40 MG Oral Tablet [Lasix] 2015-05-14 15:00:00 No 40 mg, 1 tab, Route: PO, Q12H, Dosing Weight 77.727, kg, Start date: 05/14/15 9:00:00, Duration: 30 day, Stop date: 06/12/15 21:00:00 [facility] Terbinafine hydrochloride 10 MG/ML Topical Cream 2015-05-14 15:0 0:00 No 1 appl, Route: TOP, Drug For m: CRM, Dosing Weight 77.727, kg, BID, Start date: 05/14/15 9:00:00, Duration: 30 day, Stop date: 06/12/15 17:00:00 [facility] Esomeprazole 2015-05-14 15:00:00 No 20 mg, Route: PO, Drug form: ECCAP, Daily, Dosing Weight 77.727, kg, Start date: 05/14/15 9:00:00, Duration: 30 day, Stop date: 06/12/15 9:00:00 [facility] Aspirin 2015-05-14 15:00:00 No Notes: Take with food. [facility] clotrimazole topical 1% cream 2015-05-14 15:00:00 No Notes: For external use only. (Same As: Lotrimin AF, Mycelex) [facility] heparin 2015-05-14 14:00:00 No Notes: porci ne heparin [facility] Dilaudid 2015-05-14 12:22:00 No 1 mg, Route: IVP, ONCE, Dosing Weight 77.727, kg, Priority: STAT, Start date: 05/14/15 6:22:00, Stop date: 05/14/15 6:22:00 [facility] Hydralazine 2015-05-14 11:47:00 No 10 mg, Route: IV, ONCE, Dosing Weight 77.727, kg, Start date: 05/14/15 5:47:00, Stop date: 05/14/15 5:47:00 [facility] Amlodipine 2015-05-14 09:34:00 No Notes: (S cheryl as: Griffin) [facility] Dilaudid 2015-05-14 09:19:00 No 0.5 mg, Route: IVP, ONCE, Dosing Weight 77.727, kg, Priority: STAT, Start date: 05/14/15 3:19:00, Stop date: 05/14/15 3:19:00 [facility] Insulin, Aspart, Human 2015-05-14 07:35:00 No Notes: Roll in palms of hands gently; Do not shake vigorously. (Same as: NovoLOG) "single patient use only" WASTE: F/P - Black; E - Municipal Trash Bin Stable for 28 days at room temperature. Expires in days from Date [facility] Glucagon 2015-05-14 07:35:00 No 1 mg, Route: IM, Drug form: PDR/INJ, PRN, Dosing Weight 77.727, kg, PRN Blood Glucose Results, Start date: 05/14/15 1:35:00, Duration: 30 day, Stop date: 06/13/15 2:34:00 [facility] Dextrose 50% Syringe 2015-05-14 07:35:00 No 25 gm, 50 mL, Route: IVP, Drug Form: INJ, Dosing Weight 77.727, kg, PRN, PRN Blood Glucose Results, Start date: 05/14/15 1:35:00, Duration: 30 day, Stop date: 06/13/15 2:34:00 [facility] Lasix 2015-05-14 07:29:00 No Notes: (Same a s: Lasix) [facility] Albumin Human, SNF 250 MG/ML Injectable Solution 2015-05-14 05:2 6:00 No Notes: Lot #: Mfg: (Same as: Plasbumin-25) "blood product derivative" WASTE: F/P - Red; E -Red MEDICATION WASTE Product Size: 25 gm Product Wasted: ___ gm [facility] Lasix 2015-05-14 05:26:00 No Notes: (Same a s: Lasix) [facility] Acetaminophen 325 Mg Tablet Acetaminophen 325 Mg Tablet Yes 650 Every 6 Hours as needed for Pain [facility] Amlodipine Besylate 10 Mg Tablet Amlodipine Besylate 10 Mg Tablet Yes 10 Daily [facility] Carvedilol (Coreg) 3.125 Mg Tab Carvedilol (Coreg) 3.125 Mg Tab Yes 1 Every 12 Hours [facility] Famotidine (Pepcid) 20 Mg Tablet Famotidine (Pepcid) 20 Mg Tablet Yes 20 Twice A Day [facility] Hydralazine Hcl 25 Mg Tab Hydralazine Hcl 25 Mg Tab Yes 25 Three Times A Day [facility] Ibuprofen (Motrin) 200 Mg Tab Ibuprofen (Motrin) 200 Mg Tab Yes 200 Every 4 Hours as needed for Pain [facility] Insulin Detemir (Levemir) 100 Unit/1 Ml Vial Insulin D etemir (Levemir) 100 Unit/1 Ml Vial Yes 20 Every Morning [facility] Isosorbide Mononitrate (Isosorbide Mononitrate Er) 120 Mg Tab.er.24h Isosorbide Mononitrate (Isosorbide Mononitrate Er) 120 Mg Tab.er.24h Yes 120 Daily [facility] Lactulose 20 Gm/30 Ml Solution Lactulose 20 Gm/30 Ml Solution Yes 15 Qhs [facility] Lisinopril 10 Mg Tablet Lisinopril 10 Mg Tablet Yes 20 Daily [facility] Loperamide Hcl (Imodium*) 2 Mg Cap Loperamide Hcl (Imodium*) 2 Mg Cap Yes 2 As Needed for Diarrhea [facility] Misoprostol (Cytotec) 100 Mcg Tablet Misoprostol (Cytotec) 100 Mcg Tablet Yes 200 Twice A Day [facility] Pantoprazole Sodium (Protonix) 40 Mg Tablet. Pantopr azole Sodium (Protonix) 40 Mg Tablet. Yes 40 Daily [facility] Pregabalin (Lyrica) 25 Mg Cap Pregabalin (Lyrica) 25 Mg Cap Yes 25 Daily [facility] Quetiapine Fumarate (Seroquel) 25 Mg Tablet Quetiapine Fumarate (Seroquel) 25 Mg Tablet Yes 25 Twice A Day as needed for Agit ation [facility] Sertraline Hcl (Zoloft) 100 Mg Tablet Sertraline Hcl (Zoloft) 100 M g Tablet Yes 100 Daily [facility] Sevelamer Carbonate (Renvela) 0.8 Gm Powd.pack Sevelam er Carbonate (Renvela) 0.8 Gm Powd.pack Yes 800 Three Times A Day [facility] Trazodone Hcl 100 Mg Tablet Trazodone Hcl 100 Mg Tablet Yes 100 Bedtime [facility] Trazadone , Trazadone , 2018-05-17 00:00:00 No [facility] Vital Signs Vital Name Observation Time Observation Value Comments Source Systolic (mm Hg) 2017-07-08 21:45:00 [facility] Diastolic (mm Hg) 2017-07-08 21:45:00 [facility] Respitory Rate 2017-07-08 21:45:00 [facility] Temperature Oral (F) 2017-07-08 21:45:00 97.8 F [facility] Systolic (mm Hg) 2017-07-08 17:32:00 [facility] Diastolic (mm Hg) 2017-07-08 17:32:00 [facility] Respitory Rate 2017-07-08 17:32:00 [facility] Temperature Oral (F) 2017-07-08 17:32:00 98.6 [facility] Temperature Oral (F) 2017-07-08 13:00:00 98.2 F [facility] Systolic (mm Hg) 2017-07-08 13:00:00 [facility] Diastolic (mm Hg) 2017-07-08 13:00:00 [facility] Respitory Rate 2017-07-08 13:00:00 [facility] Height 2017-07-08 01:00:00 172.72 cm [facility] Weight 2017-07-08 01:00:00 [facility] BMI Calculated 2017-07-08 01:00:00 [facility] Weight 2017-07-07 14:34:00 [facility] Height 2017-07-07 14:34:00 162.56 cm [facility] BMI Calculated 2017-07-07 14:34:00 [facility] Heart Rate 2017-07-07 14:34:00 [facility] Systolic (mm Hg) 2017-01-01 21:00:00 [facility] Diastolic (mm Hg) 2017-01-01 21:00:00 [facility] Heart Rate 2017-01-01 21:00:00 [facility] Respitory Rate 2017-01-01 21:00:00 [place] [facility] Temperature Oral (F) 2017-01-01 21:00:00 98.3 F [facility] Temperature Oral (F) 2017-01-01 17:00:00 98.8 F [facility] [facility] 2017-01-01 17:00:00 [facility] Systolic (mm Hg) 2017-01-01 17:00:00 [facility] Diastolic (mm Hg) 2017-01-01 17:00:00 [facility] Heart Rate 2017-01-01 17:00:00 [facility] Heart Rate 2017-01-01 13:00:00 [facility] Temperature Oral (F) 2017-01-01 13:00:00 98.9 F [facility] Systolic (mm Hg) 2017-01-01 13:00:00 [facility] Diastolic (mm Hg) 2017-01-01 13:00:00 [facility] Respitory Rate 2017-01-01 13:00:00 [facility] Weight 2016-12-30 08:33:00 [facility] Weight 2016-12-29 16:17:00 [facility] Height 2016-12-29 16:17:00 177.8 cm [facility] BMI Calculated 2016-12-29 16:17:00 [facility] Systolic (mm Hg) 2016-08-19 17:00:00 [facility] Diastolic (mm Hg) 2016-08-19 17:00:00 [facility] Respitory Rate 2016-08-19 17:00:00 [facility] Heart Rate 2016-08-19 17:00:00 [facility] Systolic (mm Hg) 2016-08-19 12:59:00 [facility] Diastolic (mm Hg) 2016-08-19 12:59:00 [facility] Respitory Rate 2016-08-19 12:59:00 [facility] Heart Rate 2016-08-19 12:59:00 [facility] Weight 2016-08-19 10:00:00 [facility] Heart Rate 2016-08-19 09:00:00 [facility] Respitory Rate 2016-08-19 09:00:00 [facility] Systolic (mm Hg) 2016-08-19 09:00:00 [facility] Diastolic (mm Hg) 2016-08-19 09:00:00 [facility] Weight 2016-08-18 10:00:00 [facility] Weight 2016-08-14 10:00:00 [facility] Height 2016-08-11 16:25:00 162.56 cm [facility] Height 2016-08-11 12:30:00 162.56 cm [facility] Height 2016-08-11 08:16:00 162.56 cm [facility] Temperature Oral (F) 2016-08-10 15:00:00 98.7 F [facility] Temperature Oral (F) 2016-08-10 12:33:00 98.5 F [facility] Temperature Oral (F) 2016-08-10 09:20:00 98.5 F [facility] BMI Calculated 2016-08-08 14:21:00 [facility] BMI Calculated 2016-08-08 11:32:00 [facility] Systolic (mm Hg) 2016-07-25 16:30:00 [facility] [place] Diastolic (mm Hg) 2016-07-25 16:30:00 [facility] Heart Rate 2016-07-25 16:30:00 [facility] [place] Temperature Oral (F) 2016-07-25 16:30:00 98 F [facility] Respitory Rate 2016-07-25 12:45:00 [facility] [place] Heart Rate 2016-07-25 12:45:00 [facility] [place] Systolic (mm Hg) 2016-07-25 12:45:00 [facility] [place] Diastolic (mm Hg) 2016-07-25 12:45:00 [facility] [place] Temperature Oral (F) 2016-07-25 12:45:00 97.9 F [facility] [place] Temperature Oral (F) 2016-07-25 09:15:00 97.5 F [place] Heart Rate 2016-07-25 09:15:00 [facility] [place] Respitory Rate 2016-07-25 09:15:00 [facility] [place] Systolic (mm Hg) 2016-07-25 09:15:00 [facility] [place] Diastolic (mm Hg) 2016-07-25 09:15:00 [facility] [place] Respitory Rate 2016-07-25 08:43:00 [facility] [place] BMI Calculated 2016-07-25 08:24:00 [facility] [place] Height 2016-07-25 08:24:00 162.56 cm [place] Weight 2016-07-25 08:24:00 [facility] [place] BMI Calculated 2016-07-25 02:55:00 [facility] [place] Weight 2016-07-25 02:55:00 [facility] [place] Height 2016-07-25 02:55:00 152.4 cm [place] Heart Rate 2015-11-07 03:00:00 [facility] [place] Systolic (mm Hg) 2015-11-07 03:00:00 [facility] Diastolic (mm Hg) 2015-11-07 03:00:[address] [facility] [place] Systolic (mm Hg) 2015-11-06 21:00:00 [facility] [place] Diastolic (mm Hg) 2015-11-06 21:00:[address] [facility] [place] Respitory Rate 2015-11-06 21:00:00 [facility] Heart Rate 2015-11-06 21:00:00 [facility] [place] Temperature Oral (F) 2015-11-06 21:00:00 97.6 F [facility] [place] Systolic (mm Hg) 2015-11-06 17:00:00 [facility] Diastolic (mm Hg) 2015-11-06 17:00:00 [facility] Heart Rate 2015-11-06 17:00:00 [facility] Respitory Rate 2015-11-06 17:00:00 [facility] Temperature Oral (F) 2015-11-06 17:00:00 97.3 F [facility] Temperature Oral (F) 2015-11-06 13:00:00 97.3 F [facility] Respitory Rate 2015-11-06 13:00:00 [facility] Weight 2015-11-02 03:23:00 [facility] BMI Calculated 2015-11-02 03:23:00 [facility] Height 2015-11-02 03:23:00 162.56 cm [facility] Weight 2015-11-01 22:24:00 [facility] Respitory Rate 2015-10-28 21:54:00 [facility] Temperature Oral (F) 2015-10-28 20:16:00 98.2 F [facility] Heart Rate 2015-10-28 20:16:00 [place] Respitory Rate 2015-10-28 20:16:00 [place] Systolic (mm Hg) 2015-10-28 20:16:00 [facility] [place] Diastolic (mm Hg) 2015-10-28 20:16:00 [facility] Systolic (mm Hg) 2015-10-28 16:25:00 [facility] [place] Diastolic (mm Hg) 2015-10-28 16:25:00 [facility] Respitory Rate 2015-10-28 16:25:00 [facility] [place] Temperature Oral (F) 2015-10-28 16:25:00 97.6 F [facility] Heart Rate 2015-10-28 16:25:00 [facility] [place] Systolic (mm Hg) 2015-10-28 12:13:00 [facility] [place] Diastolic (mm Hg) 2015-10-28 12:13:00 [facility] Heart Rate 2015-10-28 12:13:00 [place] Temperature Oral (F) 2015-10-28 12:13:00 97.6 F [place] Weight 2015-10-28 10:35:00 [place] Height 2015-10-24 05:02:00 162.56 cm [place] BMI Calculated 2015-10-24 05:02:00 [place] Weight 2015-10-24 05:02:00 [place] Height 2015-10-21 07:24:00 162.56 cm [place] BMI Calculated 2015-10-21 07:24:00 [place] Weight 2015-10-21 07:24:00 [place] BMI Calculated 2015-10-20 23:11:00 [place] Height 2015-10-20 23:11:00 165.1 cm [facility] Heart Rate 2015-05-21 01:46:00 [facility] Systolic (mm Hg) 2015-05-20 23:20:00 [facility] Diastolic (mm Hg) 2015-05-20 23:20:00 [facility] Respitory Rate 2015-05-20 23:20:00 [facility] Systolic (mm Hg) 2015-05-20 22:00:00 [facility] Diastolic (mm Hg) 2015-05-20 22:00:00 [facility] Respitory Rate 2015-05-20 22:00:00 [facility] Systolic (mm Hg) 2015-05-20 21:43:00 [facility] Diastolic (mm Hg) 2015-05-20 21:43:00 [facility] Respitory Rate 2015-05-20 21:43:00 [facility] Temperature Oral (F) 2015-05-20 21:43:[address] [facility] Temperature Oral (F) 2015-05-20 17:32:[address] [facility] Temperature Oral (F) 2015-05-20 13:26:[address] [facility] Weight 2015-05-15 00:19:00 [facility] Heart Rate 2015-05-14 04:49:00 [facility] Weight 2015-05-14 02:46:00 [facility] BMI Calculated 2015-05-14 02:46:00 [facility] Height 2015-05-14 02:46:[address] [facility] Heart Rate 2015-05-14 02:46:00 [facility] Procedures Procedure Date / Time Performed Performing Clinician Sour e Computed tomography of chest without contrast 2018-05-17 00:00:0 0 ITALIA TINAJERO [facility] ts, [facility], [facility] Encounters Start Date/Time End Date/Time Encounter Type Admission Type [facility] Care Department Encounter ID Source 2018-05-19 09:15:00 2018-05-25 15:52:00 Discharged Inpatient 1 LIOR ITALIA [facility] [id number] [facility] 2017-07-07 14:28:00 2017-07-09 00:31:00 Observation [facility] [id number] [facility] 2017-07-07 09:28:00 2017-07-08 19:31:00 Outpatient Buffy Dalal [facility] [id number] 2017-07-07 09:28:00 2017-07-08 19:31:00 Outpatient Buffy Dalal [facility] [id number] 2017-07-06 09:49:00 2017-07-06 09:49:00 Outpatient MICHAEL STRONG [facility] [id number] [facility] 2016-12-29 16:12:00 2017-01-01 23:00:00 Inpatient [facility] [id number] [facility] 2016-12-29 11:12:00 2017-01-01 18:00:00 Outpatient Lauro Krause [facility] [id number] 2016-08-08 11:31:00 2016-08-19 19:36:00 Inpatient [facility] [id number] [facility] 2016-08-08 06:31:00 2016-08-19 14:36:00 Outpatient Ab joanna Nj [facility] [id number] 2016-07-25 02:42:00 2016-07-26 00:37:00 Observation [facility] [id number] [facility] 2016-07-24 21:42:00 2016-07-25 19:37:00 Outpatient Fer Self [facility] [id number] 2015-11-01 22:12:00 2015-11-07 03:25:00 Inpatient [facility] [id number] [facility] 2015-11-01 17:12:00 2015-11-06 22:25:00 Outpatient Jett Jerrell Jerrell [facility] [id number] 2015-10-20 23:10:00 2015-10-29 00:38:00 Inpatient [facility] [id number] [facility] 2015-10-20 18:10:00 2015-10-28 19:38:00 Outpatient Fer Selfipe [facility] [id number] 2015-05-14 02:19:00 2015-05-21 01:40:00 Inpatient [facility] [id number] [facility] 2015-05-13 20:19:00 2015-05-20 19:40:00 Outpatient Torsten Villar [facility] [id number] 2013-05-21 03:32:00 2013-05-23 16:23:00 Inpatient MHIEAL T [facility] [id number] [facility] 2012-04-12 08:31:00 2012-04-12 08:31:00 Emergency MHIEAL T [facility] [id number] [facility] Results Test Description Test Time Test Comments Results Result Comments Source CBC W/AUTO DIFF 2019-04-05 02:54:00 Test Item WHITE BLOOD CELL (test code = WBC) 6.2 K/mm3 4.5-12.5 N RED BLOOD CELL (test code = RBC) 4.14 mill/mm3 4.0-5.8 N HEMOGLOBIN (test code = HGB) 11.5 gram/dL 13.0-17.5 L HEMATOCRIT (test code = HCT) 38.4 % 42.0-52.0 L MEAN CELL VOLUME (test code = MCV) 92.8 fL 80-98 N MEAN CELL HGB (test code = MCH) 27.8 picogram 27.0-33.0 N MEAN CELL HGB CONCETRATION (test code = MCHC) 29.9 gram/dL 33.0-36. 0 L RED CELL DISTRIBUTION WIDTH (test code = RDW) 13.9 % 11.6-16. 2 N RED CELL DISTRIBUTION WIDTH SD (test code = RDW-SD) 47.6 fL 37 .0-51.0 N PLATELET COUNT (test code = PLT) 111 K/mm3 150-450 L MEAN PLATELET VOLUME (test code = MPV) 11.5 fL 6.7-11.0 H NEUTROPHIL % (test code = NT%) 53.6 % 39.0-69.0 N IMMATURE GRANULOCYTE % (test code = IG%) 0.2 % 0.0-5.0 N LYMPHOCYTE % (test code = LY%) 22.4 % 25.0-55.0 L MONOCYTE % (test code = MO%) 15.3 % 0.0-10.0 H EOSINOPHIL % (test code = EO%) 7.9 % 0.0-5.0 H BASOPHIL % (test code = BA%) 0.6 % 0.0-1.0 N NUCLEATED RBC % (test code = NRBC%) 0.0 % 0-0 N NEUTROPHIL # (test code = NT#) 3.32 K/mm3 1.8-7.7 N IMMATURE GRANULOCYTE # (test code = IG#) 0.01 x10 3/uL 0-0.03 N LYMPHOCYTE # (test code = LY#) 1.39 K/mm3 1.0-5.0 N MONOCYTE # (test code = MO#) 0.95 K/mm3 0-0.8 H EOSINOPHIL # (test code = EO#) 0.49 K/mm3 0.0-0.5 N BASOPHIL # (test code = BA#) 0.04 K/mm3 0.0-0.2 N NUCLEATED RBC # (test code = NRBC#) 0.00 K/mm3 0.0-0.1 N MANUAL DIFF REQUIRED (test code = MDIFF) NO, ONLY SCAN NEEDED DIFFERENTIAL [id number] 02:54:00* Test Item Value Reference Range Interpretation Comments STAIN ACCEPTABILITY (test code = STN ACCEPTABLE) STAIN ACCEPTABLE POLYCHROMASIA (test code = POLC) 1+ ANISOCYTOSIS (test code = ANISO) 1+ MACROCYTOSIS (test code = MACR) 1+ PLATELET ESTIMATE (test code = PLTEST) DECREASED PLATELET MORPHOLOGY (test code = PLTMORPH) NORMAL COMPREHENSIVE METABOLIC [id number] 02:40:00* Test Item Value Reference Range Interpretation Comments SODIUM (test code = NA) 135 mmol/L 136-145 L POTASSIUM (test code = K) 4.2 mmol/L 3.5-5.1 N CHLORIDE (test code = CL) 97.0 mmol/L 98-107 L CARBON DIOXIDE (test code = CO2) 31.0 mmol/L 21-32 N ANION GAP (test code = GAP) 11.2 10-20 N GLUCOSE (test code = GLU) 155 mg/dL 74-106 H BLOOD UREA NITROGEN (test code = BUN) 24 mg/dL 7-18 H GLOMERULAR FILTRATION RATE (test code = GFR) 10 mL/min >=60 Estimated GFR by using Modified MDRD formula.Chronic kidney disease is defined as either kidney damageor GFR <60 mL/min/1.73 m2 for >3 months. CREATININE (test code = CREAT) 7.00 mg/dL 0.7-1.3 H BUN/CREATININE RATIO (test code = BUN/CREA) 3.4 10-20 L TOTAL PROTEIN (test code = PROT) 7.3 gram/dL 6.4-8.2 N ALBUMIN (test code = ALB) 2.7 g/dL 3.4-5.0 L GLOBULIN (test code = GLOB) 4.6 gram/dL 2.7-4.2 H ALBUMIN/GLOBULIN RATIO (test code = A/G) 0.6 0.75-1.50 L CALCIUM (test code = CA) 7.6 mg/dL 8.5-10.1 L BILIRUBIN TOTAL (test code = BILT) 0.40 mg/dL 0.0-1.0 N SGOT/AST (test code = AST) 21 IUnit/L 15-37 N SGPT/ALT (test code = ALT) 11 IUnit/L 12-78 L ALKALINE PHOSPHATASE TOTAL (test code = ALKP) 45 IUnit/L 45-117 N Note change in reference range due to change in reagent. [id number] 02:40:00* Test Item Value Reference Range Interpretation Comments PHOSPHORUS (test code = PHOS) 4.8 mg/dL 2.5-4.9 N [id number] 02:40:00* Test Item Value Reference Range Interpretation Comments MAGNESIUM (test code = MAG) 1.9 mg/dL 1.8-2.4 N CALCIUM [id number] 02:40:00* Test Item Value Reference Range Interpretation Comments CALCIUM IONIZED (test code = PENNY) 1.08 mmol/L 1.12-1.32 L CBC W/AUTO [id number] 02:33:00* Test Item Value Reference Range Interpretation Comments WHITE BLOOD CELL (test code = WBC) 6.2 K/mm3 4.5-12.5 N RED BLOOD CELL (test code = RBC) 4.14 mill/mm3 4.0-5.8 N HEMOGLOBIN (test code = HGB) 11.5 gram/dL 13.0-17.5 L HEMATOCRIT (test code = HCT) 38.4 % 42.0-52.0 L MEAN CELL VOLUME (test code = MCV) 92.8 fL 80-98 N MEAN CELL HGB (test code = MCH) 27.8 picogram 27.0-33.0 N MEAN CELL HGB CONCETRATION (test code = MCHC) 29.9 gram/dL 33.0-36. 0 L RED CELL DISTRIBUTION WIDTH (test code = RDW) 13.9 % 11.6-16. 2 N RED CELL DISTRIBUTION WIDTH SD (test code = RDW-SD) 47.6 fL 37 .0-51.0 N PLATELET COUNT (test code = PLT) 111 K/mm3 150-450 L MEAN PLATELET VOLUME (test code = MPV) 11.5 fL 6.7-11.0 H NEUTROPHIL % (test code = NT%) 53.6 % 39.0-69.0 N IMMATURE GRANULOCYTE % (test code = IG%) 0.2 % 0.0-5.0 N LYMPHOCYTE % (test code = LY%) 22.4 % 25.0-55.0 L MONOCYTE % (test code = MO%) 15.3 % 0.0-10.0 H EOSINOPHIL % (test code = EO%) 7.9 % 0.0-5.0 H BASOPHIL % (test code = BA%) 0.6 % 0.0-1.0 N NUCLEATED RBC % (test code = NRBC%) 0.0 % 0-0 N NEUTROPHIL # (test code = NT#) 3.32 K/mm3 1.8-7.7 N IMMATURE GRANULOCYTE # (test code = IG#) 0.01 x10 3/uL 0-0.03 N LYMPHOCYTE # (test code = LY#) 1.39 K/mm3 1.0-5.0 N MONOCYTE # (test code = MO#) 0.95 K/mm3 0-0.8 H EOSINOPHIL # (test code = EO#) 0.49 K/mm3 0.0-0.5 N BASOPHIL # (test code = BA#) 0.04 K/mm3 0.0-0.2 N NUCLEATED RBC # (test code = NRBC#) 0.00 K/mm3 0.0-0.1 N MANUAL DIFF REQUIRED (test code = MDIFF) NO, ONLY SCAN NEEDED DIFFERENTIAL [id number] 02:33:00* Test Item Value Reference Range Interpretation Comments STAIN ACCEPTABILITY (test code = STN ACCEPTABLE) CABOT RINGS (test code = CAB) MORPHOLOGY COMMENT (test code = MOC) PLATELET ESTIMATE (test code = PLTEST) PLATELET MORPHOLOGY (test code = PLTMORPH) CBC W/AUTO [id number] 02:33:00* Test Item Value Reference Range Interpretation Comments WHITE BLOOD CELL (test code = WBC) 6.2 K/mm3 4.5-12.5 N RED BLOOD CELL (test code = RBC) 4.14 mill/mm3 4.0-5.8 N HEMOGLOBIN (test code = HGB) 11.5 gram/dL 13.0-17.5 L HEMATOCRIT (test code = HCT) 38.4 % 42.0-52.0 L MEAN CELL VOLUME (test code = MCV) 92.8 fL 80-98 N MEAN CELL HGB (test code = MCH) 27.8 picogram 27.0-33.0 N MEAN CELL HGB CONCETRATION (test code = MCHC) 29.9 gram/dL 33.0-36. 0 L RED CELL DISTRIBUTION WIDTH (test code = RDW) 13.9 % 11.6-16. 2 N RED CELL DISTRIBUTION WIDTH SD (test code = RDW-SD) 47.6 fL 37 .0-51.0 N PLATELET COUNT (test code = PLT) 111 K/mm3 150-450 L MEAN PLATELET VOLUME (test code = MPV) 11.5 fL 6.7-11.0 H NEUTROPHIL % (test code = NT%) 53.6 % 39.0-69.0 N IMMATURE GRANULOCYTE % (test code = IG%) 0.2 % 0.0-5.0 N LYMPHOCYTE % (test code = LY%) 22.4 % 25.0-55.0 L MONOCYTE % (test code = MO%) 15.3 % 0.0-10.0 H EOSINOPHIL % (test code = EO%) 7.9 % 0.0-5.0 H BASOPHIL % (test code = BA%) 0.6 % 0.0-1.0 N NUCLEATED RBC % (test code = NRBC%) 0.0 % 0-0 N NEUTROPHIL # (test code = NT#) 3.32 K/mm3 1.8-7.7 N IMMATURE GRANULOCYTE # (test code = IG#) 0.01 x10 3/uL 0-0.03 N LYMPHOCYTE # (test code = LY#) 1.39 K/mm3 1.0-5.0 N MONOCYTE # (test code = MO#) 0.95 K/mm3 0-0.8 H EOSINOPHIL # (test code = EO#) 0.49 K/mm3 0.0-0.5 N BASOPHIL # (test code = BA#) 0.04 K/mm3 0.0-0.2 N NUCLEATED RBC # (test code = NRBC#) 0.00 K/mm3 0.0-0.1 N MANUAL DIFF REQUIRED (test code = MDIFF) NO, ONLY SCAN NEEDED DIFFERENTIAL [id number] 02:33:00* Test Item Value Reference Range Interpretation Comments STAIN ACCEPTABILITY (test code = STN ACCEPTABLE) MORPHOLOGY COMMENT (test code = MOC) PLATELET ESTIMATE (test code = PLTEST) PLATELET MORPHOLOGY (test code = PLTMORPH) CBC W/AUTO [id number] 02:32:00* Test Item Value Reference Range Interpretation Comments WHITE BLOOD CELL (test code = WBC) 6.2 K/mm3 4.5-12.5 N RED BLOOD CELL (test code = RBC) 4.14 mill/mm3 4.0-5.8 N HEMOGLOBIN (test code = HGB) 11.5 gram/dL 13.0-17.5 L HEMATOCRIT (test code = HCT) 38.4 % 42.0-52.0 L MEAN CELL VOLUME (test code = MCV) 92.8 fL 80-98 N MEAN CELL HGB (test code = MCH) 27.8 picogram 27.0-33.0 N MEAN CELL HGB CONCETRATION (test code = MCHC) 29.9 gram/dL 33.0-36. 0 L RED CELL DISTRIBUTION WIDTH (test code = RDW) 13.9 % 11.6-16. 2 N RED CELL DISTRIBUTION WIDTH SD (test code = RDW-SD) 47.6 fL 37 .0-51.0 N PLATELET COUNT (test code = PLT) 111 K/mm3 150-450 L MEAN PLATELET VOLUME (test code = MPV) 11.5 fL 6.7-11.0 H NEUTROPHIL % (test code = NT%) 53.6 % 39.0-69.0 N IMMATURE GRANULOCYTE % (test code = IG%) 0.2 % 0.0-5.0 N LYMPHOCYTE % (test code = LY%) 22.4 % 25.0-55.0 L MONOCYTE % (test code = MO%) 15.3 % 0.0-10.0 H EOSINOPHIL % (test code = EO%) 7.9 % 0.0-5.0 H BASOPHIL % (test code = BA%) 0.6 % 0.0-1.0 N NUCLEATED RBC % (test code = NRBC%) 0.0 % 0-0 N NEUTROPHIL # (test code = NT#) 3.32 K/mm3 1.8-7.7 N IMMATURE GRANULOCYTE # (test code = IG#) 0.01 x10 3/uL 0-0.03 N LYMPHOCYTE # (test code = LY#) 1.39 K/mm3 1.0-5.0 N MONOCYTE # (test code = MO#) 0.95 K/mm3 0-0.8 H EOSINOPHIL # (test code = EO#) 0.49 K/mm3 0.0-0.5 N BASOPHIL # (test code = BA#) 0.04 K/mm3 0.0-0.2 N NUCLEATED RBC # (test code = NRBC#) 0.00 K/mm3 0.0-0.1 N MANUAL DIFF REQUIRED (test code = MDIFF) NO, ONLY SCAN NEEDED DIFFERENTIAL [id number] 02:32:00* Test Item Value Reference Range Interpretation Comments STAIN ACCEPTABILITY (test code = STN ACCEPTABLE) CABOT RINGS (test code = CAB) MORPHOLOGY COMMENT (test code = MOC) PLATELET ESTIMATE (test code = PLTEST) PLATELET MORPHOLOGY (test code = PLTMORPH) CBC W/AUTO [id number] 02:32:00* Test Item Value Reference Range Interpretation Comments WHITE BLOOD CELL (test code = WBC) 6.2 K/mm3 4.5-12.5 N RED BLOOD CELL (test code = RBC) 4.14 mill/mm3 4.0-5.8 N HEMOGLOBIN (test code = HGB) 11.5 gram/dL 13.0-17.5 L HEMATOCRIT (test code = HCT) 38.4 % 42.0-52.0 L MEAN CELL VOLUME (test code = MCV) 92.8 fL 80-98 N MEAN CELL HGB (test code = MCH) 27.8 picogram 27.0-33.0 N MEAN CELL HGB CONCETRATION (test code = MCHC) 29.9 gram/dL 33.0-36. 0 L RED CELL DISTRIBUTION WIDTH (test code = RDW) 13.9 % 11.6-16. 2 N RED CELL DISTRIBUTION WIDTH SD (test code = RDW-SD) 47.6 fL 37 .0-51.0 N PLATELET COUNT (test code = PLT) 111 K/mm3 150-450 L MEAN PLATELET VOLUME (test code = MPV) 11.5 fL 6.7-11.0 H NEUTROPHIL % (test code = NT%) 53.6 % 39.0-69.0 N IMMATURE GRANULOCYTE % (test code = IG%) 0.2 % 0.0-5.0 N LYMPHOCYTE % (test code = LY%) 22.4 % 25.0-55.0 L MONOCYTE % (test code = MO%) 15.3 % 0.0-10.0 H EOSINOPHIL % (test code = EO%) 7.9 % 0.0-5.0 H BASOPHIL % (test code = BA%) 0.6 % 0.0-1.0 N NUCLEATED RBC % (test code = NRBC%) 0.0 % 0-0 N NEUTROPHIL # (test code = NT#) 3.32 K/mm3 1.8-7.7 N IMMATURE GRANULOCYTE # (test code = IG#) 0.01 x10 3/uL 0-0.03 N LYMPHOCYTE # (test code = LY#) 1.39 K/mm3 1.0-5.0 N MONOCYTE # (test code = MO#) 0.95 K/mm3 0-0.8 H EOSINOPHIL # (test code = EO#) 0.49 K/mm3 0.0-0.5 N BASOPHIL # (test code = BA#) 0.04 K/mm3 0.0-0.2 N NUCLEATED RBC # (test code = NRBC#) 0.00 K/mm3 0.0-0.1 N MANUAL DIFF REQUIRED (test code = MDIFF) NO, ONLY SCAN NEEDED DIFFERENTIAL [id number] 02:32:00* Test Item Value Reference Range Interpretation Comments STAIN ACCEPTABILITY (test code = STN ACCEPTABLE) CABOT RINGS (test code = CAB) MORPHOLOGY COMMENT (test code = MOC) PLATELET ESTIMATE (test code = PLTEST) PLATELET MORPHOLOGY (test code = PLTMORPH) COMPREHENSIVE METABOLIC [id number] 02:28:00* Test Item Value Reference Range Interpretation Comments SODIUM (test code = NA) 135 mmol/L 136-145 L POTASSIUM (test code = K) 4.2 mmol/L 3.5-5.1 N CHLORIDE (test code = CL) 97.0 mmol/L 98-107 L CARBON DIOXIDE (test code = CO2) 31.0 mmol/L 21-32 N ANION GAP (test code = GAP) 11.2 10-20 N GLUCOSE (test code = GLU) 155 mg/dL 74-106 H BLOOD UREA NITROGEN (test code = BUN) 24 mg/dL 7-18 H GLOMERULAR FILTRATION RATE (test code = GFR) 10 mL/min >=60 Estimated GFR by using Modified MDRD formula.Chronic kidney disease is defined as either kidney damageor GFR <60 mL/min/1.73 m2 for >3 months. CREATININE (test code = CREAT) 7.00 mg/dL 0.7-1.3 H BUN/CREATININE RATIO (test code = BUN/CREA) 3.4 10-20 L TOTAL PROTEIN (test code = PROT) 7.3 gram/dL 6.4-8.2 N ALBUMIN (test code = ALB) 2.7 g/dL 3.4-5.0 L GLOBULIN (test code = GLOB) 4.6 gram/dL 2.7-4.2 H ALBUMIN/GLOBULIN RATIO (test code = A/G) 0.6 0.75-1.50 L CALCIUM (test code = CA) 7.6 mg/dL 8.5-10.1 L BILIRUBIN TOTAL (test code = BILT) 0.40 mg/dL 0.0-1.0 N SGOT/AST (test code = AST) 21 IUnit/L 15-37 N SGPT/ALT (test code = ALT) 11 IUnit/L 12-78 L ALKALINE PHOSPHATASE TOTAL (test code = ALKP) 45 IUnit/L 45-117 N Note change in reference range due to change in reagent. [id number] 02:28:00* Test Item Value Reference Range Interpretation Comments PHOSPHORUS (test code = PHOS) 4.8 mg/dL 2.5-4.9 N [id number] 02:28:00* Test Item Value Reference Range Interpretation Comments MAGNESIUM (test code = MAG) 1.9 mg/dL 1.8-2.4 N CALCIUM [id number] 02:28:00* Test Item Value Reference Range Interpretation Comments CALCIUM IONIZED (test code = PENNY) mmol/L 1.12-1.32 COMPREHENSIVE METABOLIC [id number] 02:17:00* Test Item Value Reference Range Interpretation Comments SODIUM (test code = NA) 135 mmol/L 136-145 L POTASSIUM (test code = K) 4.2 mmol/L 3.5-5.1 N CHLORIDE (test code = CL) 97.0 mmol/L 98-107 L CARBON DIOXIDE (test code = CO2) mmol/L 21-32 ANION GAP (test code = GAP) 10-20 GLUCOSE (test code = GLU) mg/dL 74-106 BLOOD UREA NITROGEN (test code = BUN) mg/dL 7-18 GLOMERULAR FILTRATION RATE (test code = GFR) mL/min >=60 CREATININE (test code = CREAT) mg/dL 0.7-1.3 BUN/CREATININE RATIO (test code = BUN/CREA) 10-20 TOTAL PROTEIN (test code = PROT) gram/dL 6.4-8.2 ALBUMIN (test code = ALB) g/dL 3.4-5.0 GLOBULIN (test code = GLOB) gram/dL 2.7-4.2 ALBUMIN/GLOBULIN RATIO (test code = A/G) 0.75-1.50 CALCIUM (test code = CA) mg/dL 8.5-10.1 BILIRUBIN TOTAL (test code = BILT) mg/dL 0.0-1.0 SGOT/AST (test code = AST) IUnit/L 15-37 SGPT/ALT (test code = ALT) IUnit/L 12-78 ALKALINE PHOSPHATASE TOTAL (test code = ALKP) IUnit/L 45-117 [id number] 02:17:00* Test Item Value Reference Range Interpretation Comments PHOSPHORUS (test code = PHOS) mg/dL 2.5-4.9 [id number] 02:17:00* Test Item Value Reference Range Interpretation Comments MAGNESIUM (test code = MAG) mg/dL 1.8-2.4 CALCIUM [id number] 02:17:00* Test Item Value Reference Range Interpretation Comments CALCIUM IONIZED (test code = PENNY) mmol/L 1.12-1.32 COMPREHENSIVE METABOLIC [id number] 02:39:00* Test Item Value Reference Range Interpretation Comments SODIUM (test code = NA) 140 mmol/L 136-145 N POTASSIUM (test code = K) 3.6 mmol/L 3.5-5.1 N CHLORIDE (test code = CL) 98.0 mmol/L 98-107 N CARBON DIOXIDE (test code = CO2) 35.0 mmol/L 21-32 H ANION GAP (test code = GAP) 10.6 10-20 N GLUCOSE (test code = GLU) 135 mg/dL 74-106 H BLOOD UREA NITROGEN (test code = BUN) 14 mg/dL 7-18 RESULT VERIFIED BY REPEAT ANALYSIS GLOMERULAR FILTRATION RATE (test code = GFR) 13 mL/min >=60 Estimated GFR by using Modified MDRD formula.Chronic kidney disease is defined as either kidney damageor GFR <60 mL/min/1.73 m2 for >3 months. CREATININE (test code = CREAT) 5.60 mg/dL 0.7-1.3 H BUN/CREATININE RATIO (test code = BUN/CREA) 2.5 10-20 L TOTAL PROTEIN (test code = PROT) 7.9 gram/dL 6.4-8.2 N ALBUMIN (test code = ALB) 3.0 g/dL 3.4-5.0 L GLOBULIN (test code = GLOB) 4.9 gram/dL 2.7-4.2 H ALBUMIN/GLOBULIN RATIO (test code = A/G) 0.6 0.75-1.50 L CALCIUM (test code = CA) 7.8 mg/dL 8.5-10.1 L BILIRUBIN TOTAL (test code = BILT) 0.50 mg/dL 0.0-1.0 N SGOT/AST (test code = AST) 23 IUnit/L 15-37 N SGPT/ALT (test code = ALT) 13 IUnit/L 12-78 N ALKALINE PHOSPHATASE TOTAL (test code = ALKP) 49 IUnit/L 45-117 N Note change in reference range due to change in reagent. [id number] 02:39:00* Test Item Value Reference Range Interpretation Comments PHOSPHORUS (test code = PHOS) 3.7 mg/dL 2.5-4.9 N [id number] 02:39:00* Test Item Value Reference Range Interpretation Comments MAGNESIUM (test code = MAG) 1.8 mg/dL 1.8-2.4 N CALCIUM [id number] 02:39:00* Test Item Value Reference Range Interpretation Comments CALCIUM IONIZED (test code = PENNY) 1.12 mmol/L 1.12-1.32 N COMPREHENSIVE METABOLIC [id number] 02:31:00* Test Item Value Reference Range Interpretation Comments SODIUM (test code = NA) 140 mmol/L 136-145 N POTASSIUM (test code = K) 3.6 mmol/L 3.5-5.1 N CHLORIDE (test code = CL) 98.0 mmol/L 98-107 N CARBON DIOXIDE (test code = CO2) 35.0 mmol/L 21-32 H ANION GAP (test code = GAP) 10.6 10-20 N GLUCOSE (test code = GLU) 135 mg/dL 74-106 H BLOOD UREA NITROGEN (test code = BUN) 14 mg/dL 7-18 RESULT VERIFIED BY REPEAT ANALYSIS GLOMERULAR FILTRATION RATE (test code = GFR) 13 mL/min >=60 Estimated GFR by using Modified MDRD formula.Chronic kidney disease is defined as either kidney damageor GFR <60 mL/min/1.73 m2 for >3 months. CREATININE (test code = CREAT) 5.60 mg/dL 0.7-1.3 H BUN/CREATININE RATIO (test code = BUN/CREA) 2.5 10-20 L TOTAL PROTEIN (test code = PROT) 7.9 gram/dL 6.4-8.2 N ALBUMIN (test code = ALB) 3.0 g/dL 3.4-5.0 L GLOBULIN (test code = GLOB) 4.9 gram/dL 2.7-4.2 H ALBUMIN/GLOBULIN RATIO (test code = A/G) 0.6 0.75-1.50 L CALCIUM (test code = CA) 7.8 mg/dL 8.5-10.1 L BILIRUBIN TOTAL (test code = BILT) 0.50 mg/dL 0.0-1.0 N SGOT/AST (test code = AST) 23 IUnit/L 15-37 N SGPT/ALT (test code = ALT) 13 IUnit/L 12-78 N ALKALINE PHOSPHATASE TOTAL (test code = ALKP) 49 IUnit/L 45-117 N Note change in reference range due to change in reagent. [id number] 02:31:00* Test Item Value Reference Range Interpretation Comments PHOSPHORUS (test code = PHOS) 3.7 mg/dL 2.5-4.9 N [id number] 02:31:00* Test Item Value Reference Range Interpretation Comments MAGNESIUM (test code = MAG) 1.8 mg/dL 1.8-2.4 N CALCIUM [id number] 02:31:00* Test Item Value Reference Range Interpretation Comments CALCIUM IONIZED (test code = PENNY) mmol/L 1.12-1.32 COMPREHENSIVE METABOLIC [id number] 02:14:00* Test Item Value Reference Range Interpretation Comments SODIUM (test code = NA) 140 mmol/L 136-145 N POTASSIUM (test code = K) 3.6 mmol/L 3.5-5.1 N CHLORIDE (test code = CL) 98.0 mmol/L 98-107 N CARBON DIOXIDE (test code = CO2) mmol/L 21-32 ANION GAP (test code = GAP) 10-20 GLUCOSE (test code = GLU) mg/dL 74-106 BLOOD UREA NITROGEN (test code = BUN) mg/dL 7-18 GLOMERULAR FILTRATION RATE (test code = GFR) mL/min >=60 CREATININE (test code = CREAT) mg/dL 0.7-1.3 BUN/CREATININE RATIO (test code = BUN/CREA) 10-20 TOTAL PROTEIN (test code = PROT) gram/dL 6.4-8.2 ALBUMIN (test code = ALB) g/dL 3.4-5.0 GLOBULIN (test code = GLOB) gram/dL 2.7-4.2 ALBUMIN/GLOBULIN RATIO (test code = A/G) 0.75-1.50 CALCIUM (test code = CA) mg/dL 8.5-10.1 BILIRUBIN TOTAL (test code = BILT) mg/dL 0.0-1.0 SGOT/AST (test code = AST) IUnit/L 15-37 SGPT/ALT (test code = ALT) IUnit/L 12-78 ALKALINE PHOSPHATASE TOTAL (test code = ALKP) IUnit/L 45-117 [id number] 02:14:00* Test Item Value Reference Range Interpretation Comments PHOSPHORUS (test code = PHOS) mg/dL 2.5-4.9 [id number] 02:14:00* Test Item Value Reference Range Interpretation Comments MAGNESIUM (test code = MAG) mg/dL 1.8-2.4 CALCIUM [id number] 02:14:00* Test Item Value Reference Range Interpretation Comments CALCIUM IONIZED (test code = PENNY) mmol/L 1.12-1.32 CBC W/AUTO [id number] 02:12:00* Test Item Value Reference Range Interpretation Comments WHITE BLOOD CELL (test code = WBC) 6.3 K/mm3 4.5-12.5 N RED BLOOD CELL (test code = RBC) 4.59 mill/mm3 4.0-5.8 N HEMOGLOBIN (test code = HGB) 12.8 gram/dL 13.0-17.5 L HEMATOCRIT (test code = HCT) 42.7 % 42.0-52.0 N MEAN CELL VOLUME (test code = MCV) 90.0 fL 80-98 RESULT VERIFIED BY REPEAT ANALYSIS MEAN CELL HGB (test code = MCH) 27.9 picogram 27.0-33.0 N MEAN CELL HGB CONCETRATION (test code = MCHC) 31.0 gram/dL 33.0-36. 0 L RED CELL DISTRIBUTION WIDTH (test code = RDW) 14.5 % 11.6-16. 2 N RED CELL DISTRIBUTION WIDTH SD (test code = RDW-SD) 47.3 fL 37 .0-51.0 N PLATELET COUNT (test code = PLT) 129 K/mm3 150-450 L MEAN PLATELET VOLUME (test code = MPV) 11.2 fL 6.7-11.0 H NEUTROPHIL % (test code = NT%) 62.1 % 39.0-69.0 N IMMATURE GRANULOCYTE % (test code = IG%) 0.2 % 0.0-5.0 N LYMPHOCYTE % (test code = LY%) 19.1 % 25.0-55.0 L MONOCYTE % (test code = MO%) 13.4 % 0.0-10.0 H EOSINOPHIL % (test code = EO%) 4.9 % 0.0-5.0 N BASOPHIL % (test code = BA%) 0.3 % 0.0-1.0 N NUCLEATED RBC % (test code = NRBC%) 0.0 % 0-0 N NEUTROPHIL # (test code = NT#) 3.89 K/mm3 1.8-7.7 N IMMATURE GRANULOCYTE # (test code = IG#) 0.01 x10 3/uL 0-0.03 N LYMPHOCYTE # (test code = LY#) 1.20 K/mm3 1.0-5.0 N MONOCYTE # (test code = MO#) 0.84 K/mm3 0-0.8 H EOSINOPHIL # (test code = EO#) 0.31 K/mm3 0.0-0.5 N BASOPHIL # (test code = BA#) 0.02 K/mm3 0.0-0.2 N NUCLEATED RBC # (test code = NRBC#) 0.00 K/mm3 0.0-0.1 N MANUAL DIFF REQUIRED (test code = MDIFF) NO CBC W/AUTO [id number] 01:56:00* Test Item Value Reference Range Interpretation Comments WHITE BLOOD CELL (test code = WBC) K/mm3 4.5-12.5 RED BLOOD CELL (test code = RBC) mill/mm3 4.0-5.8 HEMOGLOBIN (test code = HGB) gram/dL 13.0-17.5 HEMATOCRIT (test code = HCT) 42.7 % 42.0-52.0 N MEAN CELL VOLUME (test code = MCV) fL 80-98 MEAN CELL HGB (test code = MCH) picogram 27.0-33.0 MEAN CELL HGB CONCETRATION (test code = MCHC) gram/dL 33.0-36. 0 RED CELL DISTRIBUTION WIDTH (test code = RDW) % 11.6-16. 2 RED CELL DISTRIBUTION WIDTH SD (test code = RDW-SD) fL 37 .0-51.0 PLATELET COUNT (test code = PLT) K/mm3 150-450 MEAN PLATELET VOLUME (test code = MPV) fL 6.7-11.0 NEUTROPHIL % (test code = NT%) % 39.0-69.0 IMMATURE GRANULOCYTE % (test code = IG%) % 0.0-5.0 LYMPHOCYTE % (test code = LY%) % 25.0-55.0 MONOCYTE % (test code = MO%) % 0.0-10.0 EOSINOPHIL % (test code = EO%) % 0.0-5.0 BASOPHIL % (test code = BA%) % 0.0-1.0 NEUTROPHIL # (test code = NT#) K/mm3 1.8-7.7 LYMPHOCYTE # (test code = LY#) K/mm3 1.0-5.0 MONOCYTE # (test code = MO#) K/mm3 0-0.8 EOSINOPHIL # (test code = EO#) K/mm3 0.0-0.5 BASOPHIL # (test code = BA#) K/mm3 0.0-0.2 AG HEPAT B [id number] 12:17:00* Test Item Value Reference Range Interpretation Comments AG HEPAT B SURF (test code = HBSAG) Nonreactive Index Nonreactive COMPREHENSIVE METABOLIC [id number] 03:52:00* Test Item Value Reference Range Interpretation Comments SODIUM (test code = NA) 137 mmol/L 136-145 N POTASSIUM (test code = K) 5.7 mmol/L 3.5-5.1 H CHLORIDE (test code = CL) 96.7 mmol/L 98-107 L CARBON DIOXIDE (test code = CO2) 31.0 mmol/L 21-32 N ANION GAP (test code = GAP) 15.0 10-20 N GLUCOSE (test code = GLU) 126 mg/dL 74-106 H BLOOD UREA NITROGEN (test code = BUN) 34 mg/dL 7-18 H GLOMERULAR FILTRATION RATE (test code = GFR) 7 mL/min >=60 Estimated GFR by using Modified MDRD formula.Chronic kidney disease is defined as either kidney damageor GFR <60 mL/min/1.73 m2 for >3 months. CREATININE (test code = CREAT) 9.11 mg/dL 0.7-1.3 H BUN/CREATININE RATIO (test code = BUN/CREA) 3.7 10-20 L TOTAL PROTEIN (test code = PROT) 8.1 gram/dL 6.4-8.2 N ALBUMIN (test code = ALB) 2.9 g/dL 3.4-5.0 L GLOBULIN (test code = GLOB) 5.2 gram/dL 2.7-4.2 H ALBUMIN/GLOBULIN RATIO (test code = A/G) 0.6 0.75-1.50 L CALCIUM (test code = CA) 7.9 mg/dL 8.5-10.1 L BILIRUBIN TOTAL (test code = BILT) 0.40 mg/dL 0.0-1.0 N SGOT/AST (test code = AST) 41 IUnit/L 15-37 H SGPT/ALT (test code = ALT) 16 IUnit/L 12-78 N ALKALINE PHOSPHATASE TOTAL (test code = ALKP) 48 IUnit/L 45-117 N Note change in reference range due to change in reagent. [id number] 03:52:00* Test Item Value Reference Range Interpretation Comments PHOSPHORUS (test code = PHOS) 6.4 mg/dL 2.5-4.9 H [id number] 03:52:00* Test Item Value Reference Range Interpretation Comments MAGNESIUM (test code = MAG) 2.2 mg/dL 1.8-2.4 N CALCIUM [id number] 03:52:00* Test Item Value Reference Range Interpretation Comments CALCIUM IONIZED (test code = PENNY) 1.04 mmol/L 1.12-1.32 L CBC W/AUTO [id number] 03:31:00* Test Item Value Reference Range Interpretation Comments WHITE BLOOD CELL (test code = WBC) 7.2 K/mm3 4.5-12.5 N RED BLOOD CELL (test code = RBC) 4.63 mill/mm3 4.0-5.8 N HEMOGLOBIN (test code = HGB) 12.7 gram/dL 13.0-17.5 L HEMATOCRIT (test code = HCT) 43.9 % 42.0-52.0 N MEAN CELL VOLUME (test code = MCV) 94.8 fL 80-98 N MEAN CELL HGB (test code = MCH) 27.4 picogram 27.0-33.0 N MEAN CELL HGB CONCETRATION (test code = MCHC) 28.9 gram/dL 33.0-36. 0 L RED CELL DISTRIBUTION WIDTH (test code = RDW) 14.5 % 11.6-16. 2 N RED CELL DISTRIBUTION WIDTH SD (test code = RDW-SD) 50.4 fL 37 .0-51.0 N PLATELET COUNT (test code = PLT) 141 K/mm3 150-450 L MEAN PLATELET VOLUME (test code = MPV) 11.7 fL 6.7-11.0 H NEUTROPHIL % (test code = NT%) 66.3 % 39.0-69.0 N IMMATURE GRANULOCYTE % (test code = IG%) 0.3 % 0.0-5.0 N LYMPHOCYTE % (test code = LY%) 20.1 % 25.0-55.0 L MONOCYTE % (test code = MO%) 10.5 % 0.0-10.0 H EOSINOPHIL % (test code = EO%) 2.2 % 0.0-5.0 N BASOPHIL % (test code = BA%) 0.6 % 0.0-1.0 N NUCLEATED RBC % (test code = NRBC%) 0.0 % 0-0 N NEUTROPHIL # (test code = NT#) 4.75 K/mm3 1.8-7.7 N IMMATURE GRANULOCYTE # (test code = IG#) 0.02 x10 3/uL 0-0.03 N LYMPHOCYTE # (test code = LY#) 1.44 K/mm3 1.0-5.0 N MONOCYTE # (test code = MO#) 0.75 K/mm3 0-0.8 N EOSINOPHIL # (test code = EO#) 0.16 K/mm3 0.0-0.5 N BASOPHIL # (test code = BA#) 0.04 K/mm3 0.0-0.2 N NUCLEATED RBC # (test code = NRBC#) 0.00 K/mm3 0.0-0.1 N MANUAL DIFF REQUIRED (test code = MDIFF) NO, ONLY SCAN NEEDED DIFFERENTIAL [id number] 03:31:00* Test Item Value Reference Range Interpretation Comments STAIN ACCEPTABILITY (test code = STN ACCEPTABLE) STAIN ACCEPTABLE HYPOCHROMIA (test code = HYPO) 1+ ANISOCYTOSIS (test code = ANISO) 1+ ACANTHOCYTES (test code = ACAN) 1+ NONE PLATELET ESTIMATE (test code = PLTEST) ADEQUATE PLATELET MORPHOLOGY (test code = PLTMORPH) NORMAL COMPREHENSIVE METABOLIC [id number] 02:56:00* Test Item Value Reference Range Interpretation Comments SODIUM (test code = NA) mmol/L 136-145 POTASSIUM (test code = K) mmol/L 3.5-5.1 CHLORIDE (test code = CL) mmol/L 98-107 CARBON DIOXIDE (test code = CO2) mmol/L 21-32 ANION GAP (test code = GAP) 10-20 GLUCOSE (test code = GLU) mg/dL 74-106 BLOOD UREA NITROGEN (test code = BUN) mg/dL 7-18 GLOMERULAR FILTRATION RATE (test code = GFR) mL/min >=60 CREATININE (test code = CREAT) mg/dL 0.7-1.3 BUN/CREATININE RATIO (test code = BUN/CREA) 10-20 TOTAL PROTEIN (test code = PROT) gram/dL 6.4-8.2 ALBUMIN (test code = ALB) g/dL 3.4-5.0 GLOBULIN (test code = GLOB) gram/dL 2.7-4.2 ALBUMIN/GLOBULIN RATIO (test code = A/G) 0.75-1.50 CALCIUM (test code = CA) mg/dL 8.5-10.1 BILIRUBIN TOTAL (test code = BILT) mg/dL 0.0-1.0 SGOT/AST (test code = AST) IUnit/L 15-37 SGPT/ALT (test code = ALT) IUnit/L 12-78 ALKALINE PHOSPHATASE TOTAL (test code = ALKP) IUnit/L 45-117 [id number] 02:56:00* Test Item Value Reference Range Interpretation Comments PHOSPHORUS (test code = PHOS) mg/dL 2.5-4.9 [id number] 02:56:00* Test Item Value Reference Range Interpretation Comments MAGNESIUM (test code = MAG) mg/dL 1.8-2.4 CALCIUM [id number] 02:56:00* Test Item Value Reference Range Interpretation Comments CALCIUM IONIZED (test code = PENNY) 1.04 mmol/L 1.12-1.32 L CBC W/AUTO [id number] 02:38:00* Test Item Value Reference Range Interpretation Comments WHITE BLOOD CELL (test code = WBC) 7.2 K/mm3 4.5-12.5 N RED BLOOD CELL (test code = RBC) 4.63 mill/mm3 4.0-5.8 N HEMOGLOBIN (test code = HGB) 12.7 gram/dL 13.0-17.5 L HEMATOCRIT (test code = HCT) 43.9 % 42.0-52.0 N MEAN CELL VOLUME (test code = MCV) 94.8 fL 80-98 N MEAN CELL HGB (test code = MCH) 27.4 picogram 27.0-33.0 N MEAN CELL HGB CONCETRATION (test code = MCHC) 28.9 gram/dL 33.0-36. 0 L RED CELL DISTRIBUTION WIDTH (test code = RDW) 14.5 % 11.6-16. 2 N RED CELL DISTRIBUTION WIDTH SD (test code = RDW-SD) 50.4 fL 37 .0-51.0 N PLATELET COUNT (test code = PLT) 141 K/mm3 150-450 L MEAN PLATELET VOLUME (test code = MPV) 11.7 fL 6.7-11.0 H NEUTROPHIL % (test code = NT%) 66.3 % 39.0-69.0 N IMMATURE GRANULOCYTE % (test code = IG%) 0.3 % 0.0-5.0 N LYMPHOCYTE % (test code = LY%) 20.1 % 25.0-55.0 L MONOCYTE % (test code = MO%) 10.5 % 0.0-10.0 H EOSINOPHIL % (test code = EO%) 2.2 % 0.0-5.0 N BASOPHIL % (test code = BA%) 0.6 % 0.0-1.0 N NUCLEATED RBC % (test code = NRBC%) 0.0 % 0-0 N NEUTROPHIL # (test code = NT#) 4.75 K/mm3 1.8-7.7 N IMMATURE GRANULOCYTE # (test code = IG#) 0.02 x10 3/uL 0-0.03 N LYMPHOCYTE # (test code = LY#) 1.44 K/mm3 1.0-5.0 N MONOCYTE # (test code = MO#) 0.75 K/mm3 0-0.8 N EOSINOPHIL # (test code = EO#) 0.16 K/mm3 0.0-0.5 N BASOPHIL # (test code = BA#) 0.04 K/mm3 0.0-0.2 N NUCLEATED RBC # (test code = NRBC#) 0.00 K/mm3 0.0-0.1 N MANUAL DIFF REQUIRED (test code = MDIFF) NO, ONLY SCAN NEEDED DIFFERENTIAL [id number] 02:38:00* Test Item Value Reference Range Interpretation Comments STAIN ACCEPTABILITY (test code = STN ACCEPTABLE) CABOT RINGS (test code = CAB) MORPHOLOGY COMMENT (test code = MOC) PLATELET ESTIMATE (test code = PLTEST) PLATELET MORPHOLOGY (test code = PLTMORPH) CBC W/AUTO [id number] 02:38:00* Test Item Value Reference Range Interpretation Comments WHITE BLOOD CELL (test code = WBC) 7.2 K/mm3 4.5-12.5 N RED BLOOD CELL (test code = RBC) 4.63 mill/mm3 4.0-5.8 N HEMOGLOBIN (test code = HGB) 12.7 gram/dL 13.0-17.5 L HEMATOCRIT (test code = HCT) 43.9 % 42.0-52.0 N MEAN CELL VOLUME (test code = MCV) 94.8 fL 80-98 N MEAN CELL HGB (test code = MCH) 27.4 picogram 27.0-33.0 N MEAN CELL HGB CONCETRATION (test code = MCHC) 28.9 gram/dL 33.0-36. 0 L RED CELL DISTRIBUTION WIDTH (test code = RDW) 14.5 % 11.6-16. 2 N RED CELL DISTRIBUTION WIDTH SD (test code = RDW-SD) 50.4 fL 37 .0-51.0 N PLATELET COUNT (test code = PLT) 141 K/mm3 150-450 L MEAN PLATELET VOLUME (test code = MPV) 11.7 fL 6.7-11.0 H NEUTROPHIL % (test code = NT%) 66.3 % 39.0-69.0 N IMMATURE GRANULOCYTE % (test code = IG%) 0.3 % 0.0-5.0 N LYMPHOCYTE % (test code = LY%) 20.1 % 25.0-55.0 L MONOCYTE % (test code = MO%) 10.5 % 0.0-10.0 H EOSINOPHIL % (test code = EO%) 2.2 % 0.0-5.0 N BASOPHIL % (test code = BA%) 0.6 % 0.0-1.0 N NUCLEATED RBC % (test code = NRBC%) 0.0 % 0-0 N NEUTROPHIL # (test code = NT#) 4.75 K/mm3 1.8-7.7 N IMMATURE GRANULOCYTE # (test code = IG#) 0.02 x10 3/uL 0-0.03 N LYMPHOCYTE # (test code = LY#) 1.44 K/mm3 1.0-5.0 N MONOCYTE # (test code = MO#) 0.75 K/mm3 0-0.8 N EOSINOPHIL # (test code = EO#) 0.16 K/mm3 0.0-0.5 N BASOPHIL # (test code = BA#) 0.04 K/mm3 0.0-0.2 N NUCLEATED RBC # (test code = NRBC#) 0.00 K/mm3 0.0-0.1 N MANUAL DIFF REQUIRED (test code = MDIFF) NO, ONLY SCAN NEEDED DIFFERENTIAL [id number] 02:38:00* Test Item Value Reference Range Interpretation Comments STAIN ACCEPTABILITY (test code = STN ACCEPTABLE) CABOT RINGS (test code = CAB) MORPHOLOGY COMMENT (test code = MOC) PLATELET ESTIMATE (test code = PLTEST) PLATELET MORPHOLOGY (test code = PLTMORPH) CBC W/AUTO [id number] 02:38:00* Test Item Value Reference Range Interpretation Comments WHITE BLOOD CELL (test code = WBC) 7.2 K/mm3 4.5-12.5 N RED BLOOD CELL (test code = RBC) 4.63 mill/mm3 4.0-5.8 N HEMOGLOBIN (test code = HGB) 12.7 gram/dL 13.0-17.5 L HEMATOCRIT (test code = HCT) 43.9 % 42.0-52.0 N MEAN CELL VOLUME (test code = MCV) 94.8 fL 80-98 N MEAN CELL HGB (test code = MCH) 27.4 picogram 27.0-33.0 N MEAN CELL HGB CONCETRATION (test code = MCHC) 28.9 gram/dL 33.0-36. 0 L RED CELL DISTRIBUTION WIDTH (test code = RDW) 14.5 % 11.6-16. 2 N RED CELL DISTRIBUTION WIDTH SD (test code = RDW-SD) 50.4 fL 37 .0-51.0 N PLATELET COUNT (test code = PLT) 141 K/mm3 150-450 L MEAN PLATELET VOLUME (test code = MPV) 11.7 fL 6.7-11.0 H NEUTROPHIL % (test code = NT%) 66.3 % 39.0-69.0 N IMMATURE GRANULOCYTE % (test code = IG%) 0.3 % 0.0-5.0 N LYMPHOCYTE % (test code = LY%) 20.1 % 25.0-55.0 L MONOCYTE % (test code = MO%) 10.5 % 0.0-10.0 H EOSINOPHIL % (test code = EO%) 2.2 % 0.0-5.0 N BASOPHIL % (test code = BA%) 0.6 % 0.0-1.0 N NUCLEATED RBC % (test code = NRBC%) 0.0 % 0-0 N NEUTROPHIL # (test code = NT#) 4.75 K/mm3 1.8-7.7 N IMMATURE GRANULOCYTE # (test code = IG#) 0.02 x10 3/uL 0-0.03 N LYMPHOCYTE # (test code = LY#) 1.44 K/mm3 1.0-5.0 N MONOCYTE # (test code = MO#) 0.75 K/mm3 0-0.8 N EOSINOPHIL # (test code = EO#) 0.16 K/mm3 0.0-0.5 N BASOPHIL # (test code = BA#) 0.04 K/mm3 0.0-0.2 N NUCLEATED RBC # (test code = NRBC#) 0.00 K/mm3 0.0-0.1 N MANUAL DIFF REQUIRED (test code = MDIFF) NO, ONLY SCAN NEEDED DIFFERENTIAL [id number] 02:38:00* Test Item Value Reference Range Interpretation Comments STAIN ACCEPTABILITY (test code = STN ACCEPTABLE) MORPHOLOGY COMMENT (test code = MOC) PLATELET ESTIMATE (test code = PLTEST) PLATELET MORPHOLOGY (test code = PLTMORPH) CBC W/AUTO [id number] 02:38:00* Test Item Value Reference Range Interpretation Comments WHITE BLOOD CELL (test code = WBC) 7.2 K/mm3 4.5-12.5 N RED BLOOD CELL (test code = RBC) 4.63 mill/mm3 4.0-5.8 N HEMOGLOBIN (test code = HGB) 12.7 gram/dL 13.0-17.5 L HEMATOCRIT (test code = HCT) 43.9 % 42.0-52.0 N MEAN CELL VOLUME (test code = MCV) 94.8 fL 80-98 N MEAN CELL HGB (test code = MCH) 27.4 picogram 27.0-33.0 N MEAN CELL HGB CONCETRATION (test code = MCHC) 28.9 gram/dL 33.0-36. 0 L RED CELL DISTRIBUTION WIDTH (test code = RDW) 14.5 % 11.6-16. 2 N RED CELL DISTRIBUTION WIDTH SD (test code = RDW-SD) 50.4 fL 37 .0-51.0 N PLATELET COUNT (test code = PLT) 141 K/mm3 150-450 L MEAN PLATELET VOLUME (test code = MPV) 11.7 fL 6.7-11.0 H NEUTROPHIL % (test code = NT%) 66.3 % 39.0-69.0 N IMMATURE GRANULOCYTE % (test code = IG%) 0.3 % 0.0-5.0 N LYMPHOCYTE % (test code = LY%) 20.1 % 25.0-55.0 L MONOCYTE % (test code = MO%) 10.5 % 0.0-10.0 H EOSINOPHIL % (test code = EO%) 2.2 % 0.0-5.0 N BASOPHIL % (test code = BA%) 0.6 % 0.0-1.0 N NUCLEATED RBC % (test code = NRBC%) 0.0 % 0-0 N NEUTROPHIL # (test code = NT#) 4.75 K/mm3 1.8-7.7 N IMMATURE GRANULOCYTE # (test code = IG#) 0.02 x10 3/uL 0-0.03 N LYMPHOCYTE # (test code = LY#) 1.44 K/mm3 1.0-5.0 N MONOCYTE # (test code = MO#) 0.75 K/mm3 0-0.8 N EOSINOPHIL # (test code = EO#) 0.16 K/mm3 0.0-0.5 N BASOPHIL # (test code = BA#) 0.04 K/mm3 0.0-0.2 N NUCLEATED RBC # (test code = NRBC#) 0.00 K/mm3 0.0-0.1 N MANUAL DIFF REQUIRED (test code = MDIFF) NO, ONLY SCAN NEEDED DIFFERENTIAL [id number] 02:38:00* Test Item Value Reference Range Interpretation Comments STAIN ACCEPTABILITY (test code = STN ACCEPTABLE) CABOT RINGS (test code = CAB) MORPHOLOGY COMMENT (test code = MOC) PLATELET ESTIMATE (test code = PLTEST) PLATELET MORPHOLOGY (test code = PLTMORPH) CBC W/AUTO [id number] 02:35:00* Test Item Value Reference Range Interpretation Comments WHITE BLOOD CELL (test code = WBC) K/mm3 4.5-12.5 RED BLOOD CELL (test code = RBC) mill/mm3 4.0-5.8 HEMOGLOBIN (test code = HGB) gram/dL 13.0-17.5 HEMATOCRIT (test code = HCT) 43.9 % 42.0-52.0 N MEAN CELL VOLUME (test code = MCV) fL 80-98 MEAN CELL HGB (test code = MCH) picogram 27.0-33.0 MEAN CELL HGB CONCETRATION (test code = MCHC) gram/dL 33.0-36. 0 RED CELL DISTRIBUTION WIDTH (test code = RDW) % 11.6-16. 2 RED CELL DISTRIBUTION WIDTH SD (test code = RDW-SD) fL 37 .0-51.0 PLATELET COUNT (test code = PLT) K/mm3 150-450 MEAN PLATELET VOLUME (test code = MPV) fL 6.7-11.0 NEUTROPHIL % (test code = NT%) % 39.0-69.0 IMMATURE GRANULOCYTE % (test code = IG%) % 0.0-5.0 LYMPHOCYTE % (test code = LY%) % 25.0-55.0 MONOCYTE % (test code = MO%) % 0.0-10.0 EOSINOPHIL % (test code = EO%) % 0.0-5.0 BASOPHIL % (test code = BA%) % 0.0-1.0 NEUTROPHIL # (test code = NT#) K/mm3 1.8-7.7 LYMPHOCYTE # (test code = LY#) K/mm3 1.0-5.0 MONOCYTE # (test code = MO#) K/mm3 0-0.8 EOSINOPHIL # (test code = EO#) K/mm3 0.0-0.5 BASOPHIL # (test code = BA#) K/mm3 0.0-0.2 BASIC METABOLIC [id number] 15:02:00* Test Item Value Reference Range Interpretation Comments SODIUM (test code = NA) 135 mmol/L 136-145 L POTASSIUM (test code = K) 4.5 mmol/L 3.5-5.1 N CHLORIDE (test code = CL) 93.0 mmol/L 98-107 L CARBON DIOXIDE (test code = CO2) 35.0 mmol/L 21-32 H ANION GAP (test code = GAP) 11.5 10-20 N GLUCOSE (test code = GLU) 280 mg/dL 74-106 H BLOOD UREA NITROGEN (test code = BUN) 28 mg/dL 7-18 H GLOMERULAR FILTRATION RATE (test code = GFR) 8 mL/min >=60 Estimated GFR by using Modified MDRD formula.Chronic kidney disease is defined as either kidney damageor GFR <60 mL/min/1.73 m2 for >3 months. CREATININE (test code = CREAT) 8.10 mg/dL 0.7-1.3 H BUN/CREATININE RATIO (test code = BUN/CREA) 3.5 10-20 L CALCIUM (test code = CA) 7.9 mg/dL 8.5-10.1 L BASIC METABOLIC [id number] 14:56:00* Test Item Value Reference Range Interpretation Comments SODIUM (test code = NA) 135 mmol/L 136-145 L POTASSIUM (test code = K) 4.5 mmol/L 3.5-5.1 N CHLORIDE (test code = CL) 93.0 mmol/L 98-107 L CARBON DIOXIDE (test code = CO2) mmol/L 21-32 ANION GAP (test code = GAP) 10-20 GLUCOSE (test code = GLU) mg/dL 74-106 BLOOD UREA NITROGEN (test code = BUN) mg/dL 7-18 GLOMERULAR FILTRATION RATE (test code = GFR) mL/min >=60 CREATININE (test code = CREAT) mg/dL 0.7-1.3 BUN/CREATININE RATIO (test code = BUN/CREA) 10-20 CALCIUM (test code = CA) mg/dL 8.5-10.1 CBC W/AUTO [id number] 14:24:00* Test Item Value Reference Range Interpretation Comments WHITE BLOOD CELL (test code = WBC) 6.9 K/mm3 4.5-12.5 N RED BLOOD CELL (test code = RBC) 4.33 mill/mm3 4.0-5.8 N HEMOGLOBIN (test code = HGB) 12.0 gram/dL 13.0-17.5 L HEMATOCRIT (test code = HCT) 40.3 % 42.0-52.0 L MEAN CELL VOLUME (test code = MCV) 93.1 fL 80-98 N MEAN CELL HGB (test code = MCH) 27.7 picogram 27.0-33.0 N MEAN CELL HGB CONCETRATION (test code = MCHC) 29.8 gram/dL 33.0-36. 0 L RED CELL DISTRIBUTION WIDTH (test code = RDW) 14.5 % 11.6-16. 2 N RED CELL DISTRIBUTION WIDTH SD (test code = RDW-SD) 49.2 fL 37 .0-51.0 N PLATELET COUNT (test code = PLT) 143 K/mm3 150-450 L MEAN PLATELET VOLUME (test code = MPV) 11.4 fL 6.7-11.0 H NEUTROPHIL % (test code = NT%) 66.0 % 39.0-69.0 N IMMATURE GRANULOCYTE % (test code = IG%) 0.3 % 0.0-5.0 N LYMPHOCYTE % (test code = LY%) 19.6 % 25.0-55.0 L MONOCYTE % (test code = MO%) 10.4 % 0.0-10.0 H EOSINOPHIL % (test code = EO%) 3.4 % 0.0-5.0 N BASOPHIL % (test code = BA%) 0.3 % 0.0-1.0 N NUCLEATED RBC % (test code = NRBC%) 0.0 % 0-0 N NEUTROPHIL # (test code = NT#) 4.53 K/mm3 1.8-7.7 N IMMATURE GRANULOCYTE # (test code = IG#) 0.02 x10 3/uL 0-0.03 N LYMPHOCYTE # (test code = LY#) 1.34 K/mm3 1.0-5.0 N MONOCYTE # (test code = MO#) 0.71 K/mm3 0-0.8 N EOSINOPHIL # (test code = EO#) 0.23 K/mm3 0.0-0.5 N BASOPHIL # (test code = BA#) 0.02 K/mm3 0.0-0.2 N NUCLEATED RBC # (test code = NRBC#) 0.00 K/mm3 0.0-0.1 N CALCIUM [id number] 02:24:00* Test Item Value Reference Range Interpretation Comments CALCIUM IONIZED (test code = PENNY) 1.14 mmol/L 1.12-1.32 N COMPREHENSIVE METABOLIC [id number] 01:59:00* Test Item Value Reference Range Interpretation Comments SODIUM (test code = NA) 139 mmol/L 136-145 N POTASSIUM (test code = K) 4.1 mmol/L 3.5-5.1 N CHLORIDE (test code = CL) 96.0 mmol/L 98-107 L CARBON DIOXIDE (test code = CO2) 35.0 mmol/L 21-32 H ANION GAP (test code = GAP) 12.1 10-20 N GLUCOSE (test code = GLU) 139 mg/dL 74-106 H BLOOD UREA NITROGEN (test code = BUN) 26 mg/dL 7-18 H GLOMERULAR FILTRATION RATE (test code = GFR) 9 mL/min >=60 Estimated GFR by using Modified MDRD formula.Chronic kidney disease is defined as either kidney damageor GFR <60 mL/min/1.73 m2 for >3 months. CREATININE (test code = CREAT) 7.60 mg/dL 0.7-1.3 H BUN/CREATININE RATIO (test code = BUN/CREA) 3.4 10-20 L TOTAL PROTEIN (test code = PROT) 6.7 gram/dL 6.4-8.2 N ALBUMIN (test code = ALB) 2.7 g/dL 3.4-5.0 L GLOBULIN (test code = GLOB) 4.0 gram/dL 2.7-4.2 N ALBUMIN/GLOBULIN RATIO (test code = A/G) 0.7 0.75-1.50 L CALCIUM (test code = CA) 8.0 mg/dL 8.5-10.1 L BILIRUBIN TOTAL (test code = BILT) 0.40 mg/dL 0.0-1.0 N SGOT/AST (test code = AST) 21 IUnit/L 15-37 N SGPT/ALT (test code = ALT) 12 IUnit/L 12-78 N ALKALINE PHOSPHATASE TOTAL (test code = ALKP) 46 IUnit/L 45-117 N Note change in reference range due to change in reagent. [id number] 01:59:00* Test Item Value Reference Range Interpretation Comments PHOSPHORUS (test code = PHOS) 5.3 mg/dL 2.5-4.9 H [id number] 01:59:00* Test Item Value Reference Range Interpretation Comments MAGNESIUM (test code = MAG) 2.1 mg/dL 1.8-2.4 N COMPREHENSIVE METABOLIC [id number] 01:49:00* Test Item Value Reference Range Interpretation Comments SODIUM (test code = NA) 139 mmol/L 136-145 N POTASSIUM (test code = K) 4.1 mmol/L 3.5-5.1 N CHLORIDE (test code = CL) 96.0 mmol/L 98-107 L CARBON DIOXIDE (test code = CO2) mmol/L 21-32 ANION GAP (test code = GAP) 10-20 GLUCOSE (test code = GLU) mg/dL 74-106 BLOOD UREA NITROGEN (test code = BUN) mg/dL 7-18 GLOMERULAR FILTRATION RATE (test code = GFR) mL/min >=60 CREATININE (test code = CREAT) mg/dL 0.7-1.3 BUN/CREATININE RATIO (test code = BUN/CREA) 10-20 TOTAL PROTEIN (test code = PROT) gram/dL 6.4-8.2 ALBUMIN (test code = ALB) g/dL 3.4-5.0 GLOBULIN (test code = GLOB) gram/dL 2.7-4.2 ALBUMIN/GLOBULIN RATIO (test code = A/G) 0.75-1.50 CALCIUM (test code = CA) mg/dL 8.5-10.1 BILIRUBIN TOTAL (test code = BILT) mg/dL 0.0-1.0 SGOT/AST (test code = AST) IUnit/L 15-37 SGPT/ALT (test code = ALT) IUnit/L 12-78 ALKALINE PHOSPHATASE TOTAL (test code = ALKP) IUnit/L 45-117 [id number] 01:49:00* Test Item Value Reference Range Interpretation Comments PHOSPHORUS (test code = PHOS) mg/dL 2.5-4.9 [id number] 01:49:00* Test Item Value Reference Range Interpretation Comments MAGNESIUM (test code = MAG) mg/dL 1.8-2.4 CALCIUM [id number] 01:49:00* Test Item Value Reference Range Interpretation Comments CALCIUM IONIZED (test code = PENNY) mmol/L 1.12-1.32 CBC W/AUTO [id number] 01:31:00* Test Item Value Reference Range Interpretation Comments WHITE BLOOD CELL (test code = WBC) 7.3 K/mm3 4.5-12.5 N RED BLOOD CELL (test code = RBC) 4.31 mill/mm3 4.0-5.8 N HEMOGLOBIN (test code = HGB) 11.9 gram/dL 13.0-17.5 L HEMATOCRIT (test code = HCT) 39.3 % 42.0-52.0 L MEAN CELL VOLUME (test code = MCV) 91.2 fL 80-98 N MEAN CELL HGB (test code = MCH) 27.6 picogram 27.0-33.0 N MEAN CELL HGB CONCETRATION (test code = MCHC) 30.3 gram/dL 33.0-36. 0 L RED CELL DISTRIBUTION WIDTH (test code = RDW) 14.3 % 11.6-16. 2 N RED CELL DISTRIBUTION WIDTH SD (test code = RDW-SD) 47.7 fL 37 .0-51.0 N PLATELET COUNT (test code = PLT) 138 K/mm3 150-450 L MEAN PLATELET VOLUME (test code = MPV) 11.2 fL 6.7-11.0 H NEUTROPHIL % (test code = NT%) 68.3 % 39.0-69.0 N IMMATURE GRANULOCYTE % (test code = IG%) 0.1 % 0.0-5.0 N LYMPHOCYTE % (test code = LY%) 18.4 % 25.0-55.0 L MONOCYTE % (test code = MO%) 11.1 % 0.0-10.0 H EOSINOPHIL % (test code = EO%) 1.4 % 0.0-5.0 N BASOPHIL % (test code = BA%) 0.7 % 0.0-1.0 N NUCLEATED RBC % (test code = NRBC%) 0.0 % 0-0 N NEUTROPHIL # (test code = NT#) 4.97 K/mm3 1.8-7.7 N IMMATURE GRANULOCYTE # (test code = IG#) 0.01 x10 3/uL 0-0.03 N LYMPHOCYTE # (test code = LY#) 1.34 K/mm3 1.0-5.0 N MONOCYTE # (test code = MO#) 0.81 K/mm3 0-0.8 H EOSINOPHIL # (test code = EO#) 0.10 K/mm3 0.0-0.5 N BASOPHIL # (test code = BA#) 0.05 K/mm3 0.0-0.2 N NUCLEATED RBC # (test code = NRBC#) 0.00 K/mm3 0.0-0.1 N MANUAL DIFF REQUIRED (test code = MDIFF) NO [id number] 08:26:00* Test Item Value Reference Range Interpretation Comments TROPONIN-I (test code = TROPI) 0.114 ng/mL 0-0.045 HH COMMENTS TO GUTTER INSTALLER: COLLECT 3 HOURS AFTER PREVIOUS SAMPLESTREPTOCOCCUS PCR [id number] 01:34:00* Test Item Value Reference Range Interpretation Comments STREPTOCOCCUS DYSGALACTIAE (test code = STREPGC) NEGATIVE FOR G/C N EGATIVE STREPA MOLECULAR (test code = STREPAMOL) NEGATIVE FOR GRP A NEGATIV E [id number] 01:30:00* Test Item Value Reference Range Interpretation Comments TROPONIN-I (test code = TROPI) 0.127 ng/mL 0-0.045 HH COMMENTS TO GUTTER INSTALLER: COLLECT 3 HOURS AFTER PREVIOUS SAMPLE- CT ABD PELVIS [id number] 19:34:00 Name: SARAH GORDON [facility] : 1960 Age/S: 58 / M [address] [facility] Unit #: [id number] Loc: [place] [address] Phys: Mayco Rushing MD Acct: [id number] Dis Date: Status: REG ER PHONE #: [phone] Exam Date: 03/31/2019 1842 FAX #: [phone] Reason: lower abd pain EXAMS: CPT CODE: [id number] CT ABD PELVIS W/CONT 20654 REASON FOR EXAM: lower abd pain EXAM ORDER DATE: 03/31/2019 5:25 PM Ordering M.DMichelle: Mayco Rushing MD PROCEDURE: - CT ABD PELVIS W/CONT contrast-enhanced axial CT images were acquired through the abdomen/pelvis at 5 mm intervals. Sagittal and coronal reformatted images were generated. Automated exposure control was utilized for this reduction. Phases of contrast: venous and delayed COMPARISON: None FINDINGS: Visualized thorax: Small pericardial effusion. There is rounded atelectasis in the middle lobe and in the left lower lobe. Trace left- sided pleural effusion is seen Hepatobiliary system: Normal Pancreas: The main pancreatic duct is mildly prominent no filling defects or strictures appreciated. The pancreatic parenchyma appears to be within normal limits Spleen: Normal Adrenal glands: Normal Genitourinary system: Simple renal cysts are present bilaterally. Reproductive organs are within normal limits. Urinary bladder is suboptimally evaluated due to underdistention. Silvina rointestinal tract and appendix: There is diverticulosis of the descending colon without evidence of diverticulitis. Heavy stool burden in the trans verse colon and moderate stool burden in the descending colon. Stomach and small bowel are within normal limits Abdominal vascular structure s: Mild atherosclerotic disease of the abdominal aorta Perit oneum and retroperitoneum: No free fluid or free air. No omental or mesen teric masses. No abnormal lymph nodes. PAGE 1 Signed Report (CONTINUED) Name: SARAH GORDON [facility] : 1960 Age/S: 58 / M [address] [facility] Unit #: [id number] Loc: [place] [address] Phys: Mayco Rushing MD Acct: [id number] Dis Date: Status: REG ER PHONE #: [phone] Exam Date: 03/31/2019 18 42 FAX #: [phone] Reason: lower abd pain EXAMS: CPT CODE: [id number] CT ABD PELVIS W/CONT 98378 <Continued> Musculoskeletal structures and abdominal wall: There are degenerative changes in the lower thoracic spine. Otherwise normal IMPRESSION: No acute intra-abdominal process to explain the patient's lower abdominal pain. Please note that the urinary bladder is suboptimally evaluated due to underdistention. Findings suggest constipation. Mild dilation of the pancreatic duct without strictures or filling defects and no pancreatic parenchymal abnormality may represent dysfunction of the sphincter of Oddi. Rounded atelectasis in the bilateral lungs. This is likely a chronic process associated with pleural scarring. Location: [facility] at 1934 Reported and signed by: Eugenio Pena MD CC: Mayco Rushing MD Technologist:Cierra Dutton RT(R); DOU[place]AS [place] CTDI: DLP: Trnscb Date/Time: 03/31/2019 (1933) [email or web address] Orig Print D/T: S: 03/31/2019 (1936) PAGE 2 Signed Report BASIC METABOLIC [id number] 18:48:00* Test Item Value Reference Range Interpretation Comments SODIUM (test code = NA) 140 mmol/L 136-145 N POTASSIUM (test code = K) 3.2 mmol/L 3.5-5.1 L CHLORIDE (test code = CL) 100.0 mmol/L 98-107 N CARBON DIOXIDE (test code = CO2) 36.0 mmol/L 21-32 H ANION GAP (test code = GAP) 7.2 10-20 L GLUCOSE (test code = GLU) 134 mg/dL 74-106 H BLOOD UREA NITROGEN (test code = BUN) 21 mg/dL 7-18 H GLOMERULAR FILTRATION RATE (test code = GFR) 12 mL/min >=60 Estimated GFR by using Modified MDRD formula.Chronic kidney disease is defined as either kidney damageor GFR <60 mL/min/1.73 m2 for >3 months. CREATININE (test code = CREAT) 5.80 mg/dL 0.7-1.3 H BUN/CREATININE RATIO (test code = BUN/CREA) 3.6 10-20 L CALCIUM (test code = CA) 8.1 mg/dL 8.5-10.1 L HEPATIC FUNCTION [id number] 18:48:00* Test Item Value Reference Range Interpretation Comments TOTAL PROTEIN (test code = PROT) 7.9 gram/dL 6.4-8.2 N ALBUMIN (test code = ALB) 2.9 g/dL 3.4-5.0 L GLOBULIN (test code = GLOB) 5.0 gram/dL 2.7-4.2 H ALBUMIN/GLOBULIN RATIO (test code = A/G) 0.6 0.75-1.50 L BILIRUBIN TOTAL (test code = BILT) 0.60 mg/dL 0.0-1.0 N BILIRUBIN DIRECT (test code = BILD) 0.20 mg/dL 0.0-0.20 N SGOT/AST (test code = AST) 24 IUnit/L 15-37 N SGPT/ALT (test code = ALT) 16 IUnit/L 12-78 N ALKALINE PHOSPHATASE TOTAL (test code = ALKP) 57 IUnit/L 45-117 N Note change in reference range due to change in reagent. [id number] 18:48:00* Test Item Value Reference Range Interpretation Comments LIPASE (test code = LIP) 85 U/L 73.0-393.0 N [id number] 18:48:00* Test Item Value Reference Range Interpretation Comments TROPONIN-I (test code = TROPI) 0.133 ng/mL 0-0.045 HH Results called to DR LAUREN Macdonald V.LAB.IN 03/31/19 1847Critical results verified and read back by Nurse? Y - XR CHEST 1 [id number] 18:43:00 FAX: Mayco Rushing MD [phone] [place]: B St: REG Name: SARAH RASHEED [facility] : [birth year] Age/S: 58/M [address] [facility] Unit #: [id number] Loc: [place] [address] Phys: Mayco Rushing MD Acct: [id number] Dis Date: Status: REG ER PHONE #: [phone] Exam Date: 03/31/2019 9485 FAX #: [phone] Reason: cough EXAMS: CPT CODE: [id number] XR CHEST 1 V 26717 REASON FOR EXAM: cough Exam Order Date: 03/31/2019 5:25 PM Ordering M.Jimena: Mayco Rushing MD PROCEDURE: - XR CHEST 1 V COMPARISON: Fr ontal chest x-ray December 26, 2018 FINDINGS: There is alejandro bsegmental atelectasis in the lung bases. No pleural effusion or pneumotho rax. Upper lungs are clear. Cardiomediastinal silhouette is normal in size for technique. The mediastinal contours are within normal limits. There are degenerative changes throughout the spine and in the ri ght acromioclavicular joint. Moderate amount of stool is pre sent in the visualized colon. IMPRESSION: Bibasi lar subsegmental atelectasis. Superimposed consolidation cannot be exclu ded. Upper lungs are clear. Location: [facility] Electron ically Signed by Eugenio Pena MD on 03/31/2019 at 1843 Re ported and signed by: Eugenio Pena MD CC: Mayco Rushing MD Technologist: RT DARCY(R) Trnscrd Date/Time/By: 03/31/2019 (1842) : By: [email or web address] Orig Print D/T: S: 03/31/2019 (1845) PAGE 1 Signed Report BASIC METABOLIC PANEL 2019-03-31 17:56:00* Test Item Value Reference Range Interpretation Comments SODIUM (test code = NA) 140 mmol/L 136-145 N POTASSIUM (test code = K) 3.2 mmol/L 3.5-5.1 L CHLORIDE (test code = CL) 100.0 mmol/L 98-107 N CARBON DIOXIDE (test code = CO2) mmol/L 21-32 ANION GAP (test code = GAP) 10-20 GLUCOSE (test code = GLU) mg/dL 74-106 BLOOD UREA NITROGEN (test code = BUN) mg/dL 7-18 GLOMERULAR FILTRATION RATE (test code = GFR) mL/min >=60 CREATININE (test code = CREAT) mg/dL 0.7-1.3 BUN/CREATININE RATIO (test code = BUN/CREA) 10-20 CALCIUM (test code = CA) mg/dL 8.5-10.1 HEPATIC FUNCTION [id number] 17:56:00* Test Item Value Reference Range Interpretation Comments TOTAL PROTEIN (test code = PROT) gram/dL 6.4-8.2 ALBUMIN (test code = ALB) g/dL 3.4-5.0 GLOBULIN (test code = GLOB) gram/dL 2.7-4.2 ALBUMIN/GLOBULIN RATIO (test code = A/G) 0.75-1.50 BILIRUBIN TOTAL (test code = BILT) mg/dL 0.0-1.0 BILIRUBIN DIRECT (test code = BILD) mg/dL 0.0-0.20 SGOT/AST (test code = AST) IUnit/L 15-37 SGPT/ALT (test code = ALT) IUnit/L 12-78 ALKALINE PHOSPHATASE TOTAL (test code = ALKP) IUnit/L 45-117 [id number] 17:56:00* Test Item Value Reference Range Interpretation Comments LIPASE (test code = LIP) U/L 73.0-393.0 [id number] 17:56:00* Test Item Value Reference Range Interpretation Comments TROPONIN-I (test code = TROPI) ng/mL 0-0.045 URINALYSIS [id number] 17:51:00* Test Item Value Reference Range Interpretation Comments UA COLOR (test code = COLU) YELLOW YELLOW UA APPEARANCE (test code = APPU) Cloudy CLEAR A UA GLUCOSE DIPSTICK (test code = DGLUU) 500 (3+) mg/dL NEGATIVE A UA BILIRUBIN DIPSTICK (test code = BILU) NEGATIVE mg/dL NEGATIVE UA KETONE DIPSTICK (test code = KETU) NEGATIVE mg/dL NEGATIVE UA SPECIFIC GRAVITY (test code = SGU) 1.017 1.001-1.035 UA BLOOD DIPSTICK (test code = DAI) 0.1 mg/dL (1+) mg/dL NEGATIVE A UA PH DIPSTICK (test code = KULDIP) 8.5 5.0-8.0 UA PROTEIN DIPSTICK (test code = PROU) 600 (3+) mg/dL NEGATIVE A UA UROBILINIOGEN DIPSTICK (test code = URO) Normal mg/dL NEGATIVE UA NITRITE DIPSTICK (test code = JOSH) NEGATIVE NEGATIVE UA LEUKOCYTE ESTERASE W REFLEX (test code = LEUUR) 500 Kelsie/u L (3+) Kelsie/uL NEGATIVE A UA WBC (test code = WBCU) >200 per HPF 0-5 A UA RBC (test code = RBCU) 21-50 #/HPF 0-5 UA EPITHELIAL CELLS (test code = EPIU) FEW per HPF FEW UA BACTERIA (test code = BACU) FEW #/HPF NONE A UA HYALINE CAST (test code = HYALU) 0-2 #/LPF 0-5 UA MUCUS (test code = MUCU) FEW #/LPF FEW Urine Source? Clean CatchURINALYSIS [id number] 17:47:00* Test Item Value Reference Range Interpretation Comments UA COLOR (test code = COLU) YELLOW YELLOW UA APPEARANCE (test code = APPU) Cloudy CLEAR A UA GLUCOSE DIPSTICK (test code = DGLUU) 500 (3+) mg/dL NEGATIVE A UA BILIRUBIN DIPSTICK (test code = BILU) NEGATIVE mg/dL NEGATIVE UA KETONE DIPSTICK (test code = KETU) NEGATIVE mg/dL NEGATIVE UA SPECIFIC GRAVITY (test code = SGU) 1.017 1.001-1.035 UA BLOOD DIPSTICK (test code = DAI) 0.1 mg/dL (1+) mg/dL NEGATIVE A UA PH DIPSTICK (test code = KULDIP) 8.5 5.0-8.0 UA PROTEIN DIPSTICK (test code = PROU) 600 (3+) mg/dL NEGATIVE A UA UROBILINIOGEN DIPSTICK (test code = URO) Normal mg/dL NEGATIVE UA NITRITE DIPSTICK (test code = JOSH) NEGATIVE NEGATIVE UA LEUKOCYTE ESTERASE W REFLEX (test code = LEUUR) 500 Kelsie/u L (3+) Kelsie/uL NEGATIVE A UA WBC (test code = WBCU) per HPF 0-5 UA RBC (test code = RBCU) per HPF 0-5 UA EPITHELIAL CELLS (test code = EPIU) per HPF Few UA BACTERIA (test code = BACU) per HPF NONE Urine Source? Clean CatchCBC W/O [id number] 17:44:00* Test Item Value Reference Range Interpretation Comments WHITE BLOOD CELL (test code = WBC) 8.5 K/mm3 4.5-12.5 N RED BLOOD CELL (test code = RBC) 4.96 mill/mm3 4.0-5.8 N HEMOGLOBIN (test code = HGB) 13.5 gram/dL 13.0-17.5 N HEMATOCRIT (test code = HCT) 45.5 % 42.0-52.0 N MEAN CELL VOLUME (test code = MCV) 91.7 fL 80-98 N MEAN CELL HGB (test code = MCH) 27.2 picogram 27.0-33.0 N MEAN CELL HGB CONCETRATION (test code = MCHC) 29.7 gram/dL 33.0-36. 0 L RED CELL DISTRIBUTION WIDTH (test code = RDW) 14.1 % 11.6-16. 2 N PLATELET COUNT (test code = PLT) 162 K/mm3 150-450 N MEAN PLATELET VOLUME (test code = MPV) 11.6 fL 6.7-11.0 H CBC W/O [id number] 17:39:00* Test Item Value Reference Range Interpretation Comments WHITE BLOOD CELL (test code = WBC) K/mm3 4.5-12.5 RED BLOOD CELL (test code = RBC) mill/mm3 4.0-5.8 HEMOGLOBIN (test code = HGB) 13.5 gram/dL 13.0-17.5 N HEMATOCRIT (test code = HCT) 45.5 % 42.0-52.0 N MEAN CELL VOLUME (test code = MCV) fL 80-98 MEAN CELL HGB (test code = MCH) picogram 27.0-33.0 MEAN CELL HGB CONCETRATION (test code = MCHC) gram/dL 33.0-36. 0 RED CELL DISTRIBUTION WIDTH (test code = RDW) % 11.6-16. 2 PLATELET COUNT (test code = PLT) K/mm3 150-450 MEAN PLATELET VOLUME (test code = MPV) fL 6.7-11.0 [id number] 06:04:00* Test Item Value Reference Range Interpretation Comments GLUBED (test code = GLUBED) 112 mg/dL 74-106 H Performed by certified electric drill operator at [facility] HEPATITIS B [id number] 05:09:00* Test Item Value Reference Range Interpretation Comments AB HEPATITIS B SURFACE (test code = HBSAB) Non Reactive () Non Reactive: Inconsistent with immunity, less than 10 mIU/mL Reactive: Consistent with immunity, greater than 9.9 mIU/mLVerified by repeat analysisPerformed At: [facility] [address] [id number] Kyle L MD Ph:[phone] At: [address] [id number] Sanjai MD Ph:[phone] AG HEPAT B SURF (test code = HBSAG) Negative Negative HEPATITIS B CORE ANTIBODY,TOT (test code = HBCAB) Negative Nega tive HEPATITIS B CORE ANTIBODY,IGM (test code = HBCMAB) Negative Neg ative AG HEPATITIS BE (test code = HBEAG) Negative Negative AB HEPATITIS BE (test code = HBEAB) Negative Negative BASIC METABOLIC [id number] 04:57:00* Test Item Value Reference Range Interpretation Comments SODIUM (test code = NA) 136 mmol/L 136-145 N POTASSIUM (test code = K) 4.1 mmol/L 3.5-5.1 N CHLORIDE (test code = CL) 99.0 mmol/L 98-107 N CARBON DIOXIDE (test code = CO2) 28.0 mmol/L 21-32 N ANION GAP (test code = GAP) 13.1 10-20 N GLUCOSE (test code = GLU) 130 mg/dL 74-106 H BLOOD UREA NITROGEN (test code = BUN) 12 mg/dL 7-18 N GLOMERULAR FILTRATION RATE (test code = GFR) 20 mL/min >=60 Estimated GFR by using Modified MDRD formula.Chronic kidney disease is defined as either kidney damageor GFR <60 mL/min/1.73 m2 for >3 months. CREATININE (test code = CREAT) 3.80 mg/dL 0.7-1.3 H BUN/CREATININE RATIO (test code = BUN/CREA) 3.1 10-20 L CALCIUM (test code = CA) 7.8 mg/dL 8.5-10.1 L CBC W/AUTO [id number] 04:47:00* Test Item Value Reference Range Interpretation Comments WHITE BLOOD CELL (test code = WBC) 11.9 K/mm3 4.5-12.5 N RED BLOOD CELL (test code = RBC) 2.91 mill/mm3 4.0-5.8 L HEMOGLOBIN (test code = HGB) 8.5 gram/dL 13.0-17.5 L HEMATOCRIT (test code = HCT) 26.9 % 42.0-52.0 L MEAN CELL VOLUME (test code = MCV) 92.4 fL 80-98 N MEAN CELL HGB (test code = MCH) 29.2 picogram 27.0-33.0 N MEAN CELL HGB CONCETRATION (test code = MCHC) 31.6 gram/dL 33.0-36. 0 L RED CELL DISTRIBUTION WIDTH (test code = RDW) 12.9 % 11.6-16. 2 N RED CELL DISTRIBUTION WIDTH SD (test code = RDW-SD) 43.8 fL 37 .0-51.0 N PLATELET COUNT (test code = PLT) 145 K/mm3 150-450 L MEAN PLATELET VOLUME (test code = MPV) 10.7 fL 6.7-11.0 N NEUTROPHIL % (test code = NT%) 62.5 % 39.0-69.0 N IMMATURE GRANULOCYTE % (test code = IG%) 0.5 % 0.0-5.0 N LYMPHOCYTE % (test code = LY%) 16.5 % 25.0-55.0 L MONOCYTE % (test code = MO%) 12.1 % 0.0-10.0 H EOSINOPHIL % (test code = EO%) 8.0 % 0.0-5.0 H BASOPHIL % (test code = BA%) 0.4 % 0.0-1.0 N NUCLEATED RBC % (test code = NRBC%) 0.0 % 0-0 N NEUTROPHIL # (test code = NT#) 7.45 K/mm3 1.8-7.7 N IMMATURE GRANULOCYTE # (test code = IG#) 0.06 x10 3/uL 0-0.03 H LYMPHOCYTE # (test code = LY#) 1.97 K/mm3 1.0-5.0 N MONOCYTE # (test code = MO#) 1.45 K/mm3 0-0.8 H EOSINOPHIL # (test code = EO#) 0.96 K/mm3 0.0-0.5 H BASOPHIL # (test code = BA#) 0.05 K/mm3 0.0-0.2 N NUCLEATED RBC # (test code = NRBC#) 0.00 K/mm3 0.0-0.1 N [id number] 20:53:00* Test Item Value Reference Range Interpretation Comments GLUBED (test code = GLUBED) 111 mg/dL 74-106 H Performed by certified electric drill operator at [facility] [id number] 15:40:00* Test Item Value Reference Range Interpretation Comments GLUBED (test code = GLUBED) 230 mg/dL 74-106 H Performed by certified electric drill operator at [facility] BASIC METABOLIC [id number] 12:53:00* Test Item Value Reference Range Interpretation Comments SODIUM (test code = NA) 138 mmol/L 136-145 N POTASSIUM (test code = K) 2.9 mmol/L 3.5-5.1 L Re sults called to [id number] by V.LABGIGI 12/29/18 1253Critical results verified and read back by Nurse? Y CHLORIDE (test code = CL) 101.0 mmol/L 98-107 N CARBON DIOXIDE (test code = CO2) 30.0 mmol/L 21-32 N ANION GAP (test code = GAP) 9.9 10-20 L GLUCOSE (test code = GLU) 159 mg/dL 74-106 H BLOOD UREA NITROGEN (test code = BUN) 11 mg/dL 7-18 N GLOMERULAR FILTRATION RATE (test code = GFR) 31 mL/min >=60 Estimated GFR by using Modified MDRD formula.Chronic kidney disease is defined as either kidney damageor GFR <60 mL/min/1.73 m2 for >3 months. CREATININE (test code = CREAT) 2.60 mg/dL 0.7-1.3 H BUN/CREATININE RATIO (test code = BUN/CREA) 4.2 10-20 L CALCIUM (test code = CA) 7.8 mg/dL 8.5-10.1 L BASIC METABOLIC [id number] 12:45:00* Test Item Value Reference Range Interpretation Comments SODIUM (test code = NA) mmol/L 136-145 POTASSIUM (test code = K) mmol/L 3.5-5.1 CHLORIDE (test code = CL) mmol/L 98-107 CARBON DIOXIDE (test code = CO2) 30.0 mmol/L 21-32 N ANION GAP (test code = GAP) 10-20 GLUCOSE (test code = GLU) 159 mg/dL 74-106 H BLOOD UREA NITROGEN (test code = BUN) 11 mg/dL 7-18 N GLOMERULAR FILTRATION RATE (test code = GFR) 31 mL/min >=60 Estimated GFR by using Modified MDRD formula.Chronic kidney disease is defined as either kidney damageor GFR <60 mL/min/1.73 m2 for >3 months. CREATININE (test code = CREAT) 2.60 mg/dL 0.7-1.3 H BUN/CREATININE RATIO (test code = BUN/CREA) 4.2 10-20 L CALCIUM (test code = CA) 7.8 mg/dL 8.5-10.1 L CBC W/AUTO [id number] 12:24:00* Test Item Value Reference Range Interpretation Comments WHITE BLOOD CELL (test code = WBC) 11.1 K/mm3 4.5-12.5 N RED BLOOD CELL (test code = RBC) 2.98 mill/mm3 4.0-5.8 L HEMOGLOBIN (test code = HGB) 8.7 gram/dL 13.0-17.5 L HEMATOCRIT (test code = HCT) 27.1 % 42.0-52.0 L MEAN CELL VOLUME (test code = MCV) 90.9 fL 80-98 N MEAN CELL HGB (test code = MCH) 29.2 picogram 27.0-33.0 N MEAN CELL HGB CONCETRATION (test code = MCHC) 32.1 gram/dL 33.0-36. 0 L RED CELL DISTRIBUTION WIDTH (test code = RDW) 13.0 % 11.6-16. 2 N RED CELL DISTRIBUTION WIDTH SD (test code = RDW-SD) 42.9 fL 37 .0-51.0 N PLATELET COUNT (test code = PLT) 119 K/mm3 150-450 L MEAN PLATELET VOLUME (test code = MPV) 10.0 fL 6.7-11.0 N NEUTROPHIL % (test code = NT%) 70.0 % 39.0-69.0 H IMMATURE GRANULOCYTE % (test code = IG%) 0.7 % 0.0-5.0 N LYMPHOCYTE % (test code = LY%) 12.4 % 25.0-55.0 L MONOCYTE % (test code = MO%) 11.2 % 0.0-10.0 H EOSINOPHIL % (test code = EO%) 5.3 % 0.0-5.0 H BASOPHIL % (test code = BA%) 0.4 % 0.0-1.0 N NUCLEATED RBC % (test code = NRBC%) 0.0 % 0-0 N NEUTROPHIL # (test code = NT#) 7.76 K/mm3 1.8-7.7 H IMMATURE GRANULOCYTE # (test code = IG#) 0.08 x10 3/uL 0-0.03 H LYMPHOCYTE # (test code = LY#) 1.37 K/mm3 1.0-5.0 N MONOCYTE # (test code = MO#) 1.24 K/mm3 0-0.8 H EOSINOPHIL # (test code = EO#) 0.59 K/mm3 0.0-0.5 H BASOPHIL # (test code = BA#) 0.04 K/mm3 0.0-0.2 N NUCLEATED RBC # (test code = NRBC#) 0.00 K/mm3 0.0-0.1 N [id number] 07:10:00* Test Item Value Reference Range Interpretation Comments GLUBED (test code = GLUBED) 116 mg/dL 74-106 H [facility] [id number] 20:30:00* Test Item Value Reference Range Interpretation Comments GLUBED (test code = GLUBED) 156 mg/dL 74-106 H Per[facility] certified electric drill operator [facility] [id number] 16:20:00* Test Item Value Reference Range Interpretation Comments GLUBED (test code = GLUBED) 78 mg/dL 74-106 N Performed by certified electric drill operator at [facility] [id number] 12:25:00* Test Item Value Reference Range Interpretation Comments GLUBED (test code = GLUBED) 213 mg/dL 74-106 H Performed by certified electric drill operator at [facility] CBC W/AUTO [id number] 06:48:00* Test Item Value Reference Range Interpretation Comments WHITE BLOOD CELL (test code = WBC) 10.6 K/mm3 4.5-12.5 N RED BLOOD CELL (test code = RBC) 3.14 mill/mm3 4.0-5.8 L HEMOGLOBIN (test code = HGB) 9.3 gram/dL 13.0-17.5 L HEMATOCRIT (test code = HCT) 29.1 % 42.0-52.0 L MEAN CELL VOLUME (test code = MCV) 92.7 fL 80-98 N MEAN CELL HGB (test code = MCH) 29.6 picogram 27.0-33.0 N MEAN CELL HGB CONCETRATION (test code = MCHC) 32.0 gram/dL 33.0-36. 0 L RED CELL DISTRIBUTION WIDTH (test code = RDW) 13.4 % 11.6-16. 2 N RED CELL DISTRIBUTION WIDTH SD (test code = RDW-SD) 45.2 fL 37 .0-51.0 N PLATELET COUNT (test code = PLT) 115 K/mm3 150-450 L MEAN PLATELET VOLUME (test code = MPV) 10.8 fL 6.7-11.0 N NEUTROPHIL % (test code = NT%) 76.0 % 39.0-69.0 H IMMATURE GRANULOCYTE % (test code = IG%) 0.5 % 0.0-5.0 N LYMPHOCYTE % (test code = LY%) 11.8 % 25.0-55.0 L MONOCYTE % (test code = MO%) 9.8 % 0.0-10.0 N EOSINOPHIL % (test code = EO%) 1.4 % 0.0-5.0 N BASOPHIL % (test code = BA%) 0.5 % 0.0-1.0 N NUCLEATED RBC % (test code = NRBC%) 0.0 % 0-0 N NEUTROPHIL # (test code = NT#) 8.08 K/mm3 1.8-7.7 H IMMATURE GRANULOCYTE # (test code = IG#) 0.05 x10 3/uL 0-0.03 H LYMPHOCYTE # (test code = LY#) 1.25 K/mm3 1.0-5.0 N MONOCYTE # (test code = MO#) 1.04 K/mm3 0-0.8 H EOSINOPHIL # (test code = EO#) 0.15 K/mm3 0.0-0.5 N BASOPHIL # (test code = BA#) 0.05 K/mm3 0.0-0.2 N NUCLEATED RBC # (test code = NRBC#) 0.00 K/mm3 0.0-0.1 N MANUAL DIFF REQUIRED (test code = MDIFF) NO, ONLY SCAN NEEDED DIFFERENTIAL [id number] 06:48:00* Test Item Value Reference Range Interpretation Comments STAIN ACCEPTABILITY (test code = STN ACCEPTABLE) STAIN ACCEPTABLE POIKILOCYTOSIS (test code = POIK) 3+ ANISOCYTOSIS (test code = ANISO) 1+ MACROCYTOSIS (test code = MACR) 1+ MORPHOLOGY COMMENT (test code = MOC) NORMAL PLATELET ESTIMATE (test code = PLTEST) DECREASED PLATELET MORPHOLOGY (test code = PLTMORPH) NORMAL [id number] 06:42:00* Test Item Value Reference Range Interpretation Comments GLUBED (test code = GLUBED) 113 mg/dL 74-106 H Per[facility] by certified electric drill operator [facility]~ BASIC METABOLIC [id number] 06:10:00* Test Item Value Reference Range Interpretation Comments SODIUM (test code = NA) 137 mmol/L 136-145 N POTASSIUM (test code = K) 3.8 mmol/L 3.5-5.1 N CHLORIDE (test code = CL) 103.0 mmol/L 98-107 N CARBON DIOXIDE (test code = CO2) 25.0 mmol/L 21-32 N ANION GAP (test code = GAP) 12.8 10-20 N GLUCOSE (test code = GLU) 111 mg/dL 74-106 H BLOOD UREA NITROGEN (test code = BUN) 19 mg/dL 7-18 H GLOMERULAR FILTRATION RATE (test code = GFR) 16 mL/min >=60 Estimated GFR by using Modified MDRD formula.Chronic kidney disease is defined as either kidney damageor GFR <60 mL/min/1.73 m2 for >3 months. CREATININE (test code = CREAT) 4.60 mg/dL 0.7-1.3 H BUN/CREATININE RATIO (test code = BUN/CREA) 4.1 10-20 L CALCIUM (test code = CA) 7.7 mg/dL 8.5-10.1 L [id number] 06:10:00* Test Item Value Reference Range Interpretation Comments MAGNESIUM (test code = MAG) 2.0 mg/dL 1.8-2.4 N CBC W/AUTO [id number] 05:59:00* Test Item Value Reference Range Interpretation Comments WHITE BLOOD CELL (test code = WBC) 10.6 K/mm3 4.5-12.5 N RED BLOOD CELL (test code = RBC) 3.14 mill/mm3 4.0-5.8 L HEMOGLOBIN (test code = HGB) 9.3 gram/dL 13.0-17.5 L HEMATOCRIT (test code = HCT) 29.1 % 42.0-52.0 L MEAN CELL VOLUME (test code = MCV) 92.7 fL 80-98 N MEAN CELL HGB (test code = MCH) 29.6 picogram 27.0-33.0 N MEAN CELL HGB CONCETRATION (test code = MCHC) 32.0 gram/dL 33.0-36. 0 L RED CELL DISTRIBUTION WIDTH (test code = RDW) 13.4 % 11.6-16. 2 N RED CELL DISTRIBUTION WIDTH SD (test code = RDW-SD) 45.2 fL 37 .0-51.0 N PLATELET COUNT (test code = PLT) 115 K/mm3 150-450 L MEAN PLATELET VOLUME (test code = MPV) 10.8 fL 6.7-11.0 N NEUTROPHIL % (test code = NT%) 76.0 % 39.0-69.0 H IMMATURE GRANULOCYTE % (test code = IG%) 0.5 % 0.0-5.0 N LYMPHOCYTE % (test code = LY%) 11.8 % 25.0-55.0 L MONOCYTE % (test code = MO%) 9.8 % 0.0-10.0 N EOSINOPHIL % (test code = EO%) 1.4 % 0.0-5.0 N BASOPHIL % (test code = BA%) 0.5 % 0.0-1.0 N NUCLEATED RBC % (test code = NRBC%) 0.0 % 0-0 N NEUTROPHIL # (test code = NT#) 8.08 K/mm3 1.8-7.7 H IMMATURE GRANULOCYTE # (test code = IG#) 0.05 x10 3/uL 0-0.03 H LYMPHOCYTE # (test code = LY#) 1.25 K/mm3 1.0-5.0 N MONOCYTE # (test code = MO#) 1.04 K/mm3 0-0.8 H EOSINOPHIL # (test code = EO#) 0.15 K/mm3 0.0-0.5 N BASOPHIL # (test code = BA#) 0.05 K/mm3 0.0-0.2 N NUCLEATED RBC # (test code = NRBC#) 0.00 K/mm3 0.0-0.1 N MANUAL DIFF REQUIRED (test code = MDIFF) NO, ONLY SCAN NEEDED DIFFERENTIAL [id number] 05:59:00* Test Item Value Reference Range Interpretation Comments STAIN ACCEPTABILITY (test code = STN ACCEPTABLE) CABOT RINGS (test code = CAB) MORPHOLOGY COMMENT (test code = MOC) PLATELET ESTIMATE (test code = PLTEST) PLATELET MORPHOLOGY (test code = PLTMORPH) CBC W/AUTO [id number] 05:59:00* Test Item Value Reference Range Interpretation Comments WHITE BLOOD CELL (test code = WBC) 10.6 K/mm3 4.5-12.5 N RED BLOOD CELL (test code = RBC) 3.14 mill/mm3 4.0-5.8 L HEMOGLOBIN (test code = HGB) 9.3 gram/dL 13.0-17.5 L HEMATOCRIT (test code = HCT) 29.1 % 42.0-52.0 L MEAN CELL VOLUME (test code = MCV) 92.7 fL 80-98 N MEAN CELL HGB (test code = MCH) 29.6 picogram 27.0-33.0 N MEAN CELL HGB CONCETRATION (test code = MCHC) 32.0 gram/dL 33.0-36. 0 L RED CELL DISTRIBUTION WIDTH (test code = RDW) 13.4 % 11.6-16. 2 N RED CELL DISTRIBUTION WIDTH SD (test code = RDW-SD) 45.2 fL 37 .0-51.0 N PLATELET COUNT (test code = PLT) 115 K/mm3 150-450 L MEAN PLATELET VOLUME (test code = MPV) 10.8 fL 6.7-11.0 N NEUTROPHIL % (test code = NT%) 76.0 % 39.0-69.0 H IMMATURE GRANULOCYTE % (test code = IG%) 0.5 % 0.0-5.0 N LYMPHOCYTE % (test code = LY%) 11.8 % 25.0-55.0 L MONOCYTE % (test code = MO%) 9.8 % 0.0-10.0 N EOSINOPHIL % (test code = EO%) 1.4 % 0.0-5.0 N BASOPHIL % (test code = BA%) 0.5 % 0.0-1.0 N NUCLEATED RBC % (test code = NRBC%) 0.0 % 0-0 N NEUTROPHIL # (test code = NT#) 8.08 K/mm3 1.8-7.7 H IMMATURE GRANULOCYTE # (test code = IG#) 0.05 x10 3/uL 0-0.03 H LYMPHOCYTE # (test code = LY#) 1.25 K/mm3 1.0-5.0 N MONOCYTE # (test code = MO#) 1.04 K/mm3 0-0.8 H EOSINOPHIL # (test code = EO#) 0.15 K/mm3 0.0-0.5 N BASOPHIL # (test code = BA#) 0.05 K/mm3 0.0-0.2 N NUCLEATED RBC # (test code = NRBC#) 0.00 K/mm3 0.0-0.1 N MANUAL DIFF REQUIRED (test code = MDIFF) NO, ONLY SCAN NEEDED DIFFERENTIAL [id number] 05:59:00* Test Item Value Reference Range Interpretation Comments STAIN ACCEPTABILITY (test code = STN ACCEPTABLE) MORPHOLOGY COMMENT (test code = MOC) PLATELET ESTIMATE (test code = PLTEST) PLATELET MORPHOLOGY (test code = PLTMORPH) CBC W/AUTO [id number] 05:58:00* Test Item Value Reference Range Interpretation Comments WHITE BLOOD CELL (test code = WBC) 10.6 K/mm3 4.5-12.5 N RED BLOOD CELL (test code = RBC) 3.14 mill/mm3 4.0-5.8 L HEMOGLOBIN (test code = HGB) 9.3 gram/dL 13.0-17.5 L HEMATOCRIT (test code = HCT) 29.1 % 42.0-52.0 L MEAN CELL VOLUME (test code = MCV) 92.7 fL 80-98 N MEAN CELL HGB (test code = MCH) 29.6 picogram 27.0-33.0 N MEAN CELL HGB CONCETRATION (test code = MCHC) 32.0 gram/dL 33.0-36. 0 L RED CELL DISTRIBUTION WIDTH (test code = RDW) 13.4 % 11.6-16. 2 N RED CELL DISTRIBUTION WIDTH SD (test code = RDW-SD) 45.2 fL 37 .0-51.0 N PLATELET COUNT (test code = PLT) 115 K/mm3 150-450 L MEAN PLATELET VOLUME (test code = MPV) 10.8 fL 6.7-11.0 N NEUTROPHIL % (test code = NT%) 76.0 % 39.0-69.0 H IMMATURE GRANULOCYTE % (test code = IG%) 0.5 % 0.0-5.0 N LYMPHOCYTE % (test code = LY%) 11.8 % 25.0-55.0 L MONOCYTE % (test code = MO%) 9.8 % 0.0-10.0 N EOSINOPHIL % (test code = EO%) 1.4 % 0.0-5.0 N BASOPHIL % (test code = BA%) 0.5 % 0.0-1.0 N NUCLEATED RBC % (test code = NRBC%) 0.0 % 0-0 N NEUTROPHIL # (test code = NT#) 8.08 K/mm3 1.8-7.7 H IMMATURE GRANULOCYTE # (test code = IG#) 0.05 x10 3/uL 0-0.03 H LYMPHOCYTE # (test code = LY#) 1.25 K/mm3 1.0-5.0 N MONOCYTE # (test code = MO#) 1.04 K/mm3 0-0.8 H EOSINOPHIL # (test code = EO#) 0.15 K/mm3 0.0-0.5 N BASOPHIL # (test code = BA#) 0.05 K/mm3 0.0-0.2 N NUCLEATED RBC # (test code = NRBC#) 0.00 K/mm3 0.0-0.1 N MANUAL DIFF REQUIRED (test code = MDIFF) NO, ONLY SCAN NEEDED DIFFERENTIAL [id number] 05:58:00* Test Item Value Reference Range Interpretation Comments STAIN ACCEPTABILITY (test code = STN ACCEPTABLE) CABOT RINGS (test code = CAB) MORPHOLOGY COMMENT (test code = MOC) PLATELET ESTIMATE (test code = PLTEST) PLATELET MORPHOLOGY (test code = PLTMORPH) CBC W/AUTO [id number] 05:58:00* Test Item Value Reference Range Interpretation Comments WHITE BLOOD CELL (test code = WBC) 10.6 K/mm3 4.5-12.5 N RED BLOOD CELL (test code = RBC) 3.14 mill/mm3 4.0-5.8 L HEMOGLOBIN (test code = HGB) 9.3 gram/dL 13.0-17.5 L HEMATOCRIT (test code = HCT) 29.1 % 42.0-52.0 L MEAN CELL VOLUME (test code = MCV) 92.7 fL 80-98 N MEAN CELL HGB (test code = MCH) 29.6 picogram 27.0-33.0 N MEAN CELL HGB CONCETRATION (test code = MCHC) 32.0 gram/dL 33.0-36. 0 L RED CELL DISTRIBUTION WIDTH (test code = RDW) 13.4 % 11.6-16. 2 N RED CELL DISTRIBUTION WIDTH SD (test code = RDW-SD) 45.2 fL 37 .0-51.0 N PLATELET COUNT (test code = PLT) 115 K/mm3 150-450 L MEAN PLATELET VOLUME (test code = MPV) 10.8 fL 6.7-11.0 N NEUTROPHIL % (test code = NT%) 76.0 % 39.0-69.0 H IMMATURE GRANULOCYTE % (test code = IG%) 0.5 % 0.0-5.0 N LYMPHOCYTE % (test code = LY%) 11.8 % 25.0-55.0 L MONOCYTE % (test code = MO%) 9.8 % 0.0-10.0 N EOSINOPHIL % (test code = EO%) 1.4 % 0.0-5.0 N BASOPHIL % (test code = BA%) 0.5 % 0.0-1.0 N NUCLEATED RBC % (test code = NRBC%) 0.0 % 0-0 N NEUTROPHIL # (test code = NT#) 8.08 K/mm3 1.8-7.7 H IMMATURE GRANULOCYTE # (test code = IG#) 0.05 x10 3/uL 0-0.03 H LYMPHOCYTE # (test code = LY#) 1.25 K/mm3 1.0-5.0 N MONOCYTE # (test code = MO#) 1.04 K/mm3 0-0.8 H EOSINOPHIL # (test code = EO#) 0.15 K/mm3 0.0-0.5 N BASOPHIL # (test code = BA#) 0.05 K/mm3 0.0-0.2 N NUCLEATED RBC # (test code = NRBC#) 0.00 K/mm3 0.0-0.1 N MANUAL DIFF REQUIRED (test code = MDIFF) NO, ONLY SCAN NEEDED DIFFERENTIAL [id number] 05:58:00* Test Item Value Reference Range Interpretation Comments STAIN ACCEPTABILITY (test code = STN ACCEPTABLE) CABOT RINGS (test code = CAB) MORPHOLOGY COMMENT (test code = MOC) PLATELET ESTIMATE (test code = PLTEST) PLATELET MORPHOLOGY (test code = PLTMORPH) [id number] 21:58:00* Test Item Value Reference Range Interpretation Comments GLUBED (test code = GLUBED) 150 mg/dL 74-106 H [facility] certified electric drill operator [facility]~ [id number] 16:51:00* Test Item Value Reference Range Interpretation Comments GLUBED (test code = GLUBED) 144 mg/dL 74-106 H Performed by certified electric drill operator at [facility] [id number] 12:55:00* Test Item Value Reference Range Interpretation Comments GLUBED (test code = GLUBED) 147 mg/dL 74-106 H Performed by certified electric drill operator at [facility] BASIC METABOLIC [id number] 06:23:00* Test Item Value Reference Range Interpretation Comments SODIUM (test code = NA) 138 mmol/L 136-145 N POTASSIUM (test code = K) 3.5 mmol/L 3.5-5.1 N CHLORIDE (test code = CL) 100.0 mmol/L 98-107 N CARBON DIOXIDE (test code = CO2) 28.0 mmol/L 21-32 N ANION GAP (test code = GAP) 13.5 10-20 N GLUCOSE (test code = GLU) 126 mg/dL 74-106 H BLOOD UREA NITROGEN (test code = BUN) 39 mg/dL 7-18 H RESULT VERIFIED BY REPEAT ANALYSIS GLOMERULAR FILTRATION RATE (test code = GFR) 11 mL/min >=60 Estimated GFR by using Modified MDRD formula.Chronic kidney disease is defined as either kidney damageor GFR <60 mL/min/1.73 m2 for >3 months. CREATININE (test code = CREAT) 6.50 mg/dL 0.7-1.3 H BUN/CREATININE RATIO (test code = BUN/CREA) 6.0 10-20 L CALCIUM (test code = CA) 7.4 mg/dL 8.5-10.1 L LIPID PROFILE (CORONARY RISK)2018-12-27 06:23:00* Test Item Value Reference Range Interpretation Comments TRIGLYCERIDES (test code = TRIG) 67 mg/dL 20-150 N CHOLESTEROL (test code = CHOL) 122 mg/dL 0-200 N CHOLESTEROL/HDL RATIO (test code = CHOLHDL) 2.0 RATIO 0-4.9 N RISK ASSOCIATED WITH CHOL/HDL RATIOS: Risk Male Female1/2 AVERAGE 3.43 3.27AVERAGE 4.97 4.442X AVERAGE 9.55 7.053X AVERAGE 23.39 11.04 REFERENCE VALUE IS RELATED TO RISK LEVELS ASRECOMMENDED BY THE [facility]. HEART, LUNG, AND BLOOD INST. HDL CHOLESTEROL (test code = HDL) 56 mg/dL 40-60 N LIPOPROTEIN LDL (test code = LDL) 57 mg/dL 100-129 L Reference Interval: mg/dL mmol/L Optimal <100 <2.6Near/above optimal 100-129 2.6- 3.3Borderline High 130-159 3.4-4.1High 160-189 4.1-4.9Very High >=190 >=4.9========= This LDL result is a direct measurement.========= BASIC METABOLIC [id number] 05:58:00* Test Item Value Reference Range Interpretation Comments SODIUM (test code = NA) 138 mmol/L 136-145 N POTASSIUM (test code = K) 3.5 mmol/L 3.5-5.1 N CHLORIDE (test code = CL) 100.0 mmol/L 98-107 N CARBON DIOXIDE (test code = CO2) mmol/L 21-32 ANION GAP (test code = GAP) 10-20 GLUCOSE (test code = GLU) mg/dL 74-106 BLOOD UREA NITROGEN (test code = BUN) mg/dL 7-18 GLOMERULAR FILTRATION RATE (test code = GFR) mL/min >=60 CREATININE (test code = CREAT) mg/dL 0.7-1.3 BUN/CREATININE RATIO (test code = BUN/CREA) 10-20 CALCIUM (test code = CA) mg/dL 8.5-10.1 LIPID PROFILE (CORONARY RISK)2018-12-27 05:58:00* Test Item Value Reference Range Interpretation Comments TRIGLYCERIDES (test code = TRIG) mg/dL 20-150 CHOLESTEROL (test code = CHOL) mg/dL 0-200 CHOLESTEROL/HDL RATIO (test code = CHOLHDL) RATIO 0-4.9 HDL CHOLESTEROL (test code = HDL) mg/dL 40-60 LIPOPROTEIN LDL (test code = LDL) mg/dL 100-129 [id number] 05:22:00* Test Item Value Reference Range Interpretation Comments GLUBED (test code = GLUBED) 111 mg/dL 74-106 H Performed by certified electric drill operator at [facility] [id number] 04:08:00* Test Item Value Reference Range Interpretation Comments MAGNESIUM (test code = MAG) 1.4 mg/dL 1.8-2.4 L CBC W/AUTO [id number] 03:27:00* Test Item Value Reference Range Interpretation Comments WHITE BLOOD CELL (test code = WBC) 7.8 K/mm3 4.5-12.5 N RED BLOOD CELL (test code = RBC) 2.79 mill/mm3 4.0-5.8 L HEMOGLOBIN (test code = HGB) 8.2 gram/dL 13.0-17.5 L HEMATOCRIT (test code = HCT) 25.0 % 42.0-52.0 L MEAN CELL VOLUME (test code = MCV) 89.6 fL 80-98 N MEAN CELL HGB (test code = MCH) 29.4 picogram 27.0-33.0 N MEAN CELL HGB CONCETRATION (test code = MCHC) 32.8 gram/dL 33.0-36. 0 L RED CELL DISTRIBUTION WIDTH (test code = RDW) 13.4 % 11.6-16. 2 N RED CELL DISTRIBUTION WIDTH SD (test code = RDW-SD) 44.1 fL 37 .0-51.0 N PLATELET COUNT (test code = PLT) 110 K/mm3 150-450 L MEAN PLATELET VOLUME (test code = MPV) 10.9 fL 6.7-11.0 N NEUTROPHIL % (test code = NT%) 74.0 % 39.0-69.0 H IMMATURE GRANULOCYTE % (test code = IG%) 0.5 % 0.0-5.0 N LYMPHOCYTE % (test code = LY%) 10.5 % 25.0-55.0 L MONOCYTE % (test code = MO%) 10.3 % 0.0-10.0 H EOSINOPHIL % (test code = EO%) 4.2 % 0.0-5.0 N BASOPHIL % (test code = BA%) 0.5 % 0.0-1.0 N NUCLEATED RBC % (test code = NRBC%) 0.0 % 0-0 N NEUTROPHIL # (test code = NT#) 5.79 K/mm3 1.8-7.7 N IMMATURE GRANULOCYTE # (test code = IG#) 0.04 x10 3/uL 0-0.03 H LYMPHOCYTE # (test code = LY#) 0.82 K/mm3 1.0-5.0 L MONOCYTE # (test code = MO#) 0.81 K/mm3 0-0.8 H EOSINOPHIL # (test code = EO#) 0.33 K/mm3 0.0-0.5 N BASOPHIL # (test code = BA#) 0.04 K/mm3 0.0-0.2 N NUCLEATED RBC # (test code = NRBC#) 0.00 K/mm3 0.0-0.1 N MANUAL DIFF REQUIRED (test code = MDIFF) NO [id number] 23:30:00* Test Item Value Reference Range Interpretation Comments POTASSIUM (test code = K) 2.9 mmol/L 3.5-5.1 L Re sults called to [id number] by ANTWON 12/26/18 2330Critical results verified and read back by Nurse? Y PROTHROMBIN [id number] 23:22:00* Test Item Value Reference Range Interpretation Comments PROTHROMBIN TIME PATIENT (test code = PTP) 14.0 seconds 9.0-14.0 N INTERNATIONAL NORMAL RATIO (test code = INR) 1.2 0.8-1.2 N The therapeutic range for oral anticoagulant therapy formost indications is an international normalized ratio (INR)of between 2.0 and 3.0. The recommended therapeutic INRrange for various clinical situations is listed below: Clinical Situation INR range Pulmonary e mbolism treatment (2.0-3.0)Venous thrombosis treatmentVenous thrombosis prophylaxis (high risk surgery)Prevention of systemic embolism from: Acute myocardial infarction Valvular heart disease Atrial fibrillation Mechanical prosthetic heart valves (2.5-3.5) IS PATIENT ON ANTICOAGULANTS? NTHROMBOPLASTIN TIME [id number] 23:22:00* Test Item Value Reference Range Interpretation Comments THROMBOPLASTIN TIME PARTIAL (test code = PTT) 36.6 seconds 25.0-36. 5 H IS PATIENT ON ANTICOAGULANTS? [id number] 18:38:00* Test Item Value Reference Range Interpretation Comments PHOSPHORUS (test code = PHOS) 10.3 mg/dL 2.5-4.9 H [id number] 18:38:00* Test Item Value Reference Range Interpretation Comments MAGNESIUM (test code = MAG) 1.7 mg/dL 1.8-2.4 L AG HEPAT B [id number] 18:38:00* Test Item Value Reference Range Interpretation Comments AG HEPAT B SURF (test code = HBSAG) Nonreactive Index Nonreactive [id number] 18:32:00* Test Item Value Reference Range Interpretation Comments GLYCOSYLATED HEMOGLOBIN (HA1C) (test code = GLYHGB) 6.2 % HbA1 4. 8-6.0 H ESTIMATED AVERAGE GLUCOSE (test code = EAG) 131 MG/DL [id number] 18:21:00* Test Item Value Reference Range Interpretation Comments PHOSPHORUS (test code = PHOS) mg/dL 2.5-4.9 [id number] 18:21:00* Test Item Value Reference Range Interpretation Comments MAGNESIUM (test code = MAG) 1.7 mg/dL 1.8-2.4 L BASIC METABOLIC [id number] 16:49:00* Test Item Value Reference Range Interpretation Comments SODIUM (test code = NA) 140 mmol/L 136-145 N POTASSIUM (test code = K) 6.1 mmol/L 3.5-5.1 H Re vicenta called to DR KIM by V.LAB.KP1 12/26/18 1640Critical results verified and read back by Nurse? Y CHLORIDE (test code = CL) 108.0 mmol/L 98-107 H CARBON DIOXIDE (test code = CO2) 16.0 mmol/L 21-32 L ANION GAP (test code = GAP) 22.1 10-20 H GLUCOSE (test code = GLU) 129 mg/dL 74-106 H BLOOD UREA NITROGEN (test code = BUN) 136 mg/dL 7-18 H GLOMERULAR FILTRATION RATE (test code = GFR) 4 mL/min >=60 Estimated GFR by using Modified MDRD formula.Chronic kidney disease is defined as either kidney damageor GFR <60 mL/min/1.73 m2 for >3 months. CREATININE (test code = CREAT) 15.50 mg/dL 0.7-1.3 H BUN/CREATININE RATIO (test code = BUN/CREA) 8.8 10-20 L CALCIUM (test code = CA) 6.4 mg/dL 8.5-10.1 L Res ults called to DR KIM by BART.[email or web address] 12/26/18 1648Critical results verified and read back by Nurse? Y CBC W/O [id number] 16:30:00* Test Item Value Reference Range Interpretation Comments WHITE BLOOD CELL (test code = WBC) 7.5 K/mm3 4.5-12.5 N RED BLOOD CELL (test code = RBC) 2.41 mill/mm3 4.0-5.8 L HEMOGLOBIN (test code = HGB) 7.2 gram/dL 13.0-17.5 L HEMATOCRIT (test code = HCT) 22.3 % 42.0-52.0 L MEAN CELL VOLUME (test code = MCV) 92.5 fL 80-98 N MEAN CELL HGB (test code = MCH) 29.9 picogram 27.0-33.0 N MEAN CELL HGB CONCETRATION (test code = MCHC) 32.3 gram/dL 33.0-36. 0 L RED CELL DISTRIBUTION WIDTH (test code = RDW) 13.8 % 11.6-16. 2 N PLATELET COUNT (test code = PLT) 113 K/mm3 150-450 L MEAN PLATELET VOLUME (test code = MPV) 11.9 fL 6.7-11.0 H - XR CHEST 1 [id number] 16:14:00 FAX: Frank Kim DO [place]: B St: REG Name: SARAH RASHEED [facility] : 12/05/18 57 Age/S: 58/M [address] [facility] Unit #: [id number] Loc: [place] [address] Phys: Frank Kim DO Acct: [id number] Dis Date: Status: REG ER PHONE #: [phone] Exam Date: 12/26/2018 1555 FAX #: [phone] Reason: CHEST PAIN EXAMS: CPT CODE: [id number] XR CHEST 1 V 90802 REASON FOR EXAM: CHEST TUAN N EXAM ORDER DATE: 12/26/2018 2:42 PM Ordering M.D.: Frank Kim DO PROCEDURE: - XR CHEST 1 V COMPARI SON: 04/02/2018 FINDINGS: Portable AP frontal view of the chest obt ained at 3:54 PM shows moderate dense opacity of the right base. The heart size is mildly enlarged. Pulmonary vasculatures are minimally congested. IMPRESSION: Moderate airspace opacity of the right base suggest lolis of atelectasis/consolidation with small right pleural effusion at 6196 Reported and signed by: Dino Morel M.D. CC: Frank Kim DO Technologist: ROGELIO GrandeR Trnscrd Date/Time/By: 12/26/2018 (7662) : By: Hannah Orig Print D/T: S: 12/26/2018 (9420) PAGE 1 Signed Report Bedside Ctydyrk2732-26-58 12:05:00* Test Item Value Reference Range Interpretation Comments Bedside Glucose (test code = 83648-9) 73 70-120 Meter ID: [id number] [facility] 2018-05-[facility] 06:21:00* Test Item Value Reference Range Interpretation Comments Sodium Level (test code = 2951-2) 134 136-145 [facility] Pmkze6292-24-41 06:21:00* Test Item Value Reference Range Interpretation Comments Potassium Level (test code = 2823-3) 4.5 3.5-5.1 [facility] Bxuql9883-38-06 06:21:00* Test Item Value Reference Range Interpretation Comments Chloride Level (test code = 2075-0) 100 98-107 [facility] Dioxide Ckrqw9877-10-13 06:21:00* Test Item Value Reference Range Interpretation Comments Carbon Dioxide Level (test code = 2028-9) 29 22-29 [facility] CenterAnion Wij7171-27-78 06:21:00* Test Item Value Reference Range Interpretation Comments Anion Gap (test code = 67470-5) 9.5 8-16 [facility] Urea Omdlcaym8993-58-31 06:21:00* Test Item Value Reference Range Interpretation Comments Blood Urea Nitrogen (test code = 3094-0) 30 7-26 H [facility] CenterCreatinine2019-02-27 06:21:00* Test Item Value Reference Range Interpretation Comments Creatinine (test code = 2160-0) 5.85 0.72-1.25 H [facility] CenterBUN/Creatinine Ebgzp2397-25-52 06:21:00* Test Item Value Reference Range Interpretation Comments BUN/Creatinine Ratio (test code = 3097-3) 5 6-25 L [facility] CenterEstimat Glomerular Filtration Rate 2018-05-25 06:21:00* Test Item Value Reference Range Interpretation Comments Estimat Glomerular Filtration Rate (test code = 688353748) 12 >60 L Ranges were taken from the National Kidney Disease Education Program and the [facility] literature.Reference ranges:60 or greater: Quisna02-66 ( for 3 consecutive months): Chronic kidney disease 15 or less: Kidney failureUniversity Medical CenterGlucose Kvihy9982-67-41 06:21:00* Test Item Value Reference Range Interpretation Comments Glucose Level (test code = UXS1830) 126 74-118 H [facility] CenterCalcium Zqshu5681-25-30 06:21:00* Test Item Value Reference Range Interpretation Comments Calcium Level (test code = 90279-4) 8.8 8.4-10.2 [facility] CenterPhosphorus Wfevd1360-04-15 06:21:00* Test Item Value Reference Range Interpretation Comments Phosphorus Level (test code = PMD3620) 3.6 2.3-4.7 [facility] CenterMagnesium Yvuux0699-98-85 06:21:00* Test Item Value Reference Range Interpretation Comments Magnesium Level (test code = 70172-0) 1.8 1.3-2.1 [facility] CenterWhite Blood Faygo7386-09-57 06:10:00* Test Item Value Reference Range Interpretation Comments White Blood Count (test code = 6690-2) 6.69 4.8-10.8 [facility] CenterRed Blood Yfkhu2801-40-95 06:10:00* Test Item Value Reference Range Interpretation Comments Red Blood Count (test code = 789-8) 3.45 4.3-5.7 L [facility] CenterHemoglobin2019-02-27 06:10:00* Test Item Value Reference Range Interpretation Comments Hemoglobin (test code = 56551-6) 9.7 14.0-18.0 L [facility] CenterHematocrit2019-02-27 06:10:00* Test Item Value Reference Range Interpretation Comments Hematocrit (test code = 4544-3) 30.1 38.2-49.6 L [facility] CenterMean Corpuscular Rbddge2662-27-66 06:10:00* Test Item Value Reference Range Interpretation Comments Mean Corpuscular Volume (test code = 787-2) 87.2 81-99 [facility] CenterMean Corpuscular Irdcwnkzfa4848-87-34 06:10:00* Test Item Value Reference Range Interpretation Comments Mean Corpuscular Hemoglobin (test code = 785-6) 28.1 28-32 [facility] CenterMean Corpuscular Hemoglobin Concent 2018-05-25 06:10:00* Test Item Value Reference Range Interpretation Comments Mean Corpuscular Hemoglobin Concent (test code = 786-4) 32.2 31-35 [facility] Distribution Nhgkz5009-05-62 06:10:00* Test Item Value Reference Range Interpretation Comments Red Cell Distribution Width (test code = 25660-8) 14.8 11.7 -14.4 H [facility] CenterPlatelet Jaern3429-33-66 06:10:00* Test Item Value Reference Range Interpretation Comments Platelet Count (test code = 777-3) 175 140-360 [facility] CenterNeutrophils (%) (Auto)2018-05-25 06:10:00 * Test Item Value Reference Range Interpretation Comments Neutrophils (%) (Auto) (test code = 98764-0) 52.2 38.7-80.0 [facility] CenterLymphocytes (%) (Auto)2018-05-25 06:10:00 * Test Item Value Reference Range Interpretation Comments Lymphocytes (%) (Auto) (test code = 736-9) 32.1 18.0-39.1 [facility] CenterMonocytes (%) (Auto)2018-05-25 06:10:00* Test Item Value Reference Range Interpretation Comments Monocytes (%) (Auto) (test code = 5905-5) 9.0 4.4-11.3 [facility] CenterEosinophils (%) (Auto)2018-05-25 06:10:00 * Test Item Value Reference Range Interpretation Comments Eosinophils (%) (Auto) (test code = 713-8) 5.7 0.0-6.0 [facility] CenterBasophils (%) (Auto)2018-05-25 06:10:00* Test Item Value Reference Range Interpretation Comments Basophils (%) (Auto) (test code = 706-2) 0.7 0.0-1.0 [facility] CenterIM GRANULOCYTES %2018-05-25 06:10:00* Test Item Value Reference Range Interpretation Comments IM GRANULOCYTES % (test code = IM GRANULOCYTES %) 0.3 0.0- 1.0 [facility] CenterNeutrophils # (Auto)2018-05-25 06:10:00* Test Item Value Reference Range Interpretation Comments Neutrophils # (Auto) (test code = 751-8) 3.5 2.1-6.9 [facility] CenterLymphocytes # (Auto)2018-05-25 06:10:00* Test Item Value Reference Range Interpretation Comments Lymphocytes # (Auto) (test code = 03018-7) 2.2 1.0-3.2 [facility] CenterMonocytes # (Auto)2018-05-25 06:10:00* Test Item Value Reference Range Interpretation Comments Monocytes # (Auto) (test code = 742-7) 0.6 0.2-0.8 [facility] CenterEosinophils # (Auto)2018-05-25 06:10:00* Test Item Value Reference Range Interpretation Comments Eosinophils # (Auto) (test code = 711-2) 0.4 0.0-0.4 [facility] CenterBasophils # (Auto)2018-05-25 06:10:00* Test Item Value Reference Range Interpretation Comments Basophils # (Auto) (test code = 704-7) 0.1 0.0-0.1 [facility] CenterAbsolute Immature Granulocyte (auto 2018-05-25 06:10:00* Test Item Value Reference Range Interpretation Comments Absolute Immature Granulocyte (auto (manuel t code = Absolute Immature Granulocyte (auto) 0.02 0-0.1 [facility] CenterClostridium Difficile Toxin A & B 2018-05-22 09:26:00* Test Item Value Reference Range Interpretation Comments Clostridium Difficile Toxin A & B (test code = 253799217) NEGATIVE NEGATIVE Testing on stool aspirate specimens is outside wastewater technician claims since specime n type not validated on this assay.[facility] Hepatitis B Surface Antibody, Adxyq3870-03-35 08:20:00* Test Item Value Reference Range Interpretation Comments Hepatitis B Surface Antibody, Quant (test code = 5194-6) 84.3 Immunity>9.9 Status of Immunity Anti-HBs Level Inconsistent with Immunity 0.0 - 9.9Consistent with Immunity >9.9[facility] Total Almmtmrb6332-43-97 08:20:00* Test Item Value Reference Range Interpretation Comments Hepatitis B Core Total Antibody (test code = 70962-6) Negative Negative Performed at: - Lab[address] [id number] Director: Chaitanya Roberson MD, Phone: [phone] Medical CenterH[facility] B Surface Scdhijx1122-78-11 08:20:00* Test Item Value Reference Range Interpretation Comments Hepatitis B Surface Antigen (test code = 5196-1) Negative Negat lolis [facility] CenterTotal Gothbbgpf4353-78-30 06:58:00* Test Item Value Reference Range Interpretation Comments Total Bilirubin (test code = 1975-2) 0.8 0.2-1.2 [facility] CenterAspartate Amino Transf (AST/SGOT) 2018-05-18 06:58:00* Test Item Value Reference Range Interpretation Comments Aspartate Amino Transf (AST/SGOT) (test code = Aspartate Amino Transf (AST/SGOT)) 16 5-34 [facility] CenterAlanine Aminotransferase (ALT/SGPT) 2018-05-18 06:58:00* Test Item Value Reference Range Interpretation Comments Alanine Aminotransferase (ALT/SGPT) (test code = 1742-6) 7 0-55 [facility] CenterTotal Uiahcmk6755-34-51 06:58:00* Test Item Value Reference Range Interpretation Comments Total Protein (test code = 2885-2) 7.5 6.5-8.1 [facility] CenterAlbumin2019-02-20 06:58:00* Test Item Value Reference Range Interpretation Comments Albumin (test code = 1751-7) 2.9 3.5-5.0 L [facility] CenterGlobulin2019-02-20 06:58:00* Test Item Value Reference Range Interpretation Comments Globulin (test code = 68696-3) 4.6 2.3-3.5 H [facility] CenterAlbumin/Globulin Hbjhm3680-33-91 06:58:00 * Test Item Value Reference Range Interpretation Comments Albumin/Globulin Ratio (test code = 1759-0) 0.6 0.8-2.0 L [facility] CenterAlkaline Ogciamslskh6001-88-52 06:58:00* Test Item Value Reference Range Interpretation Comments Alkaline Phosphatase (test code = 6768-6) 58 40-150 [facility] CenterCHEST SINGLE (PORTABLE)2018-05-18 06:09:00 [facility] [address] [place] [address] Patient Name: SARAH GORDON MR #: [id number] : 1960 Age/Sex: 57/M Req #: [id number] Adm Physician: ITALIA TINAJERO MD Ordered by: CULLEN JOYA MD Report #: [id number] Location: MED/SURG3 Room/Bed: [facility] Procedure: [id number] DX/[facility] SINGLE (PORTABLE) Exam Date: 05/18/18 Exam Time: 0545 REPORT STATUS: Signed EXAMI NATION: CHEST SINGLE (PORTABLE) INDICATION: POSSIBLE PLEURAL EFFUSION [id number] Y COMPARISON: CT and x-ray on 05/17/2018 FINDINGS: AP view TUBES and LINES: None. LUNGS: Limited by low lung volumes. Pulmonary vascular congestion and mild interstitial neo a. PLEURA: No visible pneumothorax. Trace bilateral pleural effusion s. HEART AND MEDIASTINUM: The cardiomediastinal silhouette is enlarged. BONES AND SOFT TISSUES: No acute osseous lesion. Soft tissues are unr emarkable. UPPER ABDOMEN: No free air under the diaphragm. IMPRESS ION: Pulmonary vascular congestion and mild interstitial edema. Trace bilat eral pleural effusions. Underlying pneumonia, especially in the right lower rafael ng field cannot be excluded. Signed by: Dr. Perze Li MD on 05/18/19 6:11 AM Dictated By: PEREZ LI MD 0 Transcribed By: CHARLI on 05/18/18610 CERTIFED REFRIGERATION OPERATOR Y TO: CULLEN JOYA MD CT CHEST QV9024-82-58 21:05:00 [place] [address] Patient Name: SARAH GORDON MR #: [id number] : 1960 Age/Sex: 57/M Req #: [id number] Adm Physician: ITALIA TINAJERO MD Ordered by: ITALIA TINAJERO MD Report #: [id number] Location: MED/SURG[address] [place] [address]/Bed: [facility] Procedure: [id number] CT/CT [facility] Exam Date: 05/17/18 Exam Time: 1615 REPORT STATUS: Signed EXAM: CT Chest WITHO UT contrast INDICATION: SOB [id number] COMPARISON: Chest x-ray dated 05/17/2018 TECHNIQUE: Chest was scanned utilizing a multidete ctor helical scanner from the lung apex through the level of the adrenal gland s without administration of IV contrast. Absence of intravenous contrast decre ases sensitivity for detection of lymphadenopathy and vascular pathology. Alexa nal and sagittal reformations were obtained. Routine protocol was performed. IV CONTRAST: None COMPLICATIONS: None RADIATION DOSE: Total DLP: 434.22 mGy*cm Estimated effective dose: (DLP x 0.014 x size f actor) mSv CTDIvol has been reviewed. It is below the limits set by the [facility] (RPC). FINDINGS: LINES/ TUBES : None. LUNGS AND AIRWAYS: Interlobular septal thickening and bibasilar consolidations. Pulmonary vascular congestion. Airways are normal. PLEURA: There is bilateral hyperdense effusions, left greater than right, with adjacen t consolidations. HEART AND MEDIASTINUM: The thyroid gland is normal. Medi astinal lymphadenopathy. For example 1.2 cm prevascular lymph node (series 2, image 33) or 1.2 cm right paratracheal lymph node (series 2, image 30). Limite d for evaluation of hilar regions without intravenous contrast. No axillary lymphadenopathy. Cardiomegaly. Trace pericardial effusion. Dilated main pulmo nary artery measuring 3.5 cm, suggestive of pulmonary hypertension. Mild ather osclerotic calcification of coronary arteries. UPPER ABDOMEN: Unremarkable. BONES: The visualized bony thorax is within normal limits. SOFT TISSU ES: Mild anasarca. IMPRESSION: Pulmonary vascular congestion and mild int erstitial edema. Trace bilateral hyperdense effusions, left greater than right , suspicious for hemothorax. There are adjacent consolidations, especially in the left lung base, probably atelectasis. Underlying pneumonia or nodule canno t be excluded. Cardiomegaly and trace pericardial effusion. Mediastinal lymp hadenopathy. Signed by: Dr. Perez Li MD on 05/17/2018 9:20 PM D ictated By: PEREZ LI MD 19 COPY TO: ITALIA TINAJERO MD Creatine Kinase ZI8999-76-60 01:00:00* Test Item Value Reference Range Interpretation Comments Creatine Kinase MB (test code = 58991-4) 4.90 0-5.0 [facility] CenterTroponin F0146-06-36 01:00:00* Test Item Value Reference Range Interpretation Comments Troponin I (test code = WMH6468) 0.002 0-0.300 [facility] CenterCreatine Zrrlkr4448-76-13 00:55:00* Test Item Value Reference Range Interpretation Comments Creatine Kinase (test code = 2157-6) 169 30-200 [facility] CenterB-Type Natriuretic Fpsbslm9983-05-26 00:43:00* Test Item Value Reference Range Interpretation Comments B-Type Natriuretic Peptide (test code = 01614-9) 798.0 0-100 H [facility] CenterCHEST SINGLE (PORTABLE)2018-05-17 00:32:00 [facility] [address] [place] [address] Patient Name: SARAH GORDON MR #: [id number] : 1960 Age/Sex: 57/M Req #: [id number] Adm Physician: Ordered by: DEBBIE FRANCOIS MD Report #: [id number] Location: ER Room/Bed: Procedure: [id number] DX/CHEST SINGLE (PORTABLE) Exam Date: 05/16/18 Exam Time: 9 REPORT STATUS: Signed EXAMINATION: CHEST SINGLE (PORTABLE) INDICATION: SOB [id number] Y COMPARISON: None FINDINGS: AP view T UBES and LINES: None. LUNGS: Limited by low lung volumes and body habitus . Bilateral airspace opacities. PLEURA: No visible pneumothorax. Suspected small bilateral pleural effusions. HEART AND MEDIASTINUM: The ca rdiomediastinal silhouette is enlarged. BONES AND SOFT TISSUES: No acu te osseous lesion. Soft tissues are unremarkable. UPPER ABDOMEN: No free air under the diaphragm. IMPRESSION: Enlarged cardiomediastinal anthony houette with bilateral airspace opacities, likely moderate pulmonary edema. Un derlying infiltrate cannot be excluded. Suspected small bilateral pleural effu sions. Signed by: Dr. Perez Li MD on 05/17/2018 12:33 AM Dictat ed By: PEREZ LI MD Transcribed By: CHARLI on 05/17/1832 COPY TO: VÍCTOR FRANCOIS MD HFTNOPKXFZ0385-27-58 18:25:00Negative *NA*(07/08/17 1:25 PM)[facility] PcaocljPBXTHKXIWMPI8674-78-55 12:47:0011.8[facility] HeightsELECTROLYTES 2017-07-08 12:47:009[facility] PerlkpcTBSXSHBREOQB7156-62-42 12:47:18115YA [facility] KecgcmwBPOLCLBSJIXZ1303-59-70 12:47:005.8[facility] HeightsELECTROLYTES 2017-07-08 12:47:30169IO [facility] OdqcnqePYXUOHPZQQIU3496-72-47 12:47:004.2[facility] TtwnatjOCEWUJDERATY3190-10-55 12:47:006.91[facility] HeightsELECTROLYTES 2017-07-08 12:47:0041MH [facility] RwnsobgBLTFHEQDACHB5588-64-76 12:47:69412DS [facility] GyhxpvaJGYKRGIRHKDF0825-67-42 12:47:0024MH [facility] HeightsELECTROLYTES 2017-07-08 12:47:002.6[facility] EdgbnnxZTSGECZETEUY7953-06-42 12:47:008.0[facility] YkpewcjCDNXFOXDQQ5719-15-32 12:47:0032.8[facility] HeightsHEMATOLOGY 2017-07-08 12:47:29927DI Greater SjpylunVUGPLSRHHX9698-83-09 12:47:0014.9[facility] WbeitdxYQIXFSBYFK7817-23-31 12:47:008.3[facility] HeightsHEMATOLOGY 2017-07-08 12:47:0087.0[facility] KwownbhBZIGECJBNQ2403-31-52 12:47:0035.2[facility] OhsqymvBKLTYVENBJ0164-24-47 12:47:0011.6[facility] HeightsHEMATOLOGY 2017-07-08 12:47:004.05[facility] ZkqahmuSOMZZBEMCH7475-55-29 12:47:008.7[facility] UmsntghKODZJCDHQL9784-34-99 12:47:00* Test Item Value Reference Range Interpretation Comments MCH (test code = MCH) 28.5 pg 27.0-31.0 [facility] PyiqoejAEJZZBCLEA5285-99-73 12:47:007.6[facility] HeightsHEMATOLOGY 2017-07-08 12:47:007.8[facility] MnzcgxzXRDJJGSEYW6024-31-28 12:47:000.8[facility] XaolvgyYMRWDLGLHD1323-66-62 12:47:004.6[facility] HeightsHEMATOLOGY 2017-07-08 12:47:002.7[facility] SaizluxHBUKUWMMOF0047-32-38 12:47:000.1[facility] MnidakiSRDMKBGSIK1190-61-71 12:47:000.7[facility] HeightsHEMATOLOGY 2017-07-08 12:47:000.7[facility] XcqtneeSQLDKSUSSR6504-23-47 12:47:0031.2[facility] JyzypmeRDCJJFQGAR0151-06-16 12:47:0052.6[facility] HeightsDRUG SCREEN 2017-07-08 03:48:00Negative *NA*(07/07/17 10:48 PM) [facility] HeightsDRUG SCREEN 2017-07-08 03:48:00See Note (07/07/17 10:48 PM)[facility] HeightsDRUG SCREEN 2017-07-08 03:48:00Negative *NA*(07/07/17 10:48 PM) [facility]DRUG SCREEN 2017-07-08 03:48:00Negative *NA*(07/07/17 10:48 PM) [facility] HeightsDRUG SCREEN 2017-07-08 03:48:00Negative *NA*(07/07/17 10:48 PM) [facility]DRUG SCREEN 2017-07-08 03:48:00Negative *NA*(07/07/17 10:48 PM) [facility]DRUG SCREEN 2017-07-08 03:48:00Negative *NA*(07/07/17 10:48 PM) [facility] HeightsDRUG SCREEN 2017-07-08 03:48:00Negative *NA*(07/07/17 10:48 PM) [facility] HeightsCARDIAC XDEBCUQ1506-11-79 22:46:00<0.02MH [facility] HeightsCHEM RWDNI3860-74-49 17:46:00 0.7MH [facility] HeightsCARDIAC VFCEDXX4076-73-82 15:47:00* Test Item Value Reference Range Interpretation Comments CK MB Index (test code = CK MB Index) 4.3 1 <=2.5 [facility] HeightsCARDIAC PDSLFKC9035-29-64 15:47:89606LZ [facility] HeightsCARDIAC JFMDBCV6168-03-59 15:47:005.4MH [facility] HeightsCARDIAC WMUBJRJ9408-24-35 15:47:00<0.02MH [facility] HeightsCHEM MJEUR4851-66-84 15:47:0011MH [facility] CHEM VAKLQ1171-83-85 15:47:005.5MH [facility] HeightsCHEM KVMPU1404-71-20 15:47:00 * Test Item Value Reference Range Interpretation Comments B/C Ratio (test code = B/C Ratio) 5 1 6-25 [facility] HeightsCHEM VYSGZ6615-72-66 15:47:00* Test Item Value Reference Range Interpretation Comments A/G Ratio (test code = A/G Ratio) 0.6 1 0.7-1.6 [facility] HeightsCHEM CYAOC3067-02-84 15:47:0018MH [facility] HeightsCHEM PANEL 2017-07-07 15:47:0021MH [facility] HeightsCHEM IZYIY1717-37-78 15:47:0098MH [facility] HeightsCHEM NXDLM3375-95-31 15:47:000.7MH [facility] HeightsCHEM QSHDL3343-48-27 15:47:009.7MH [facility] HeightsCHEM SVOZD0171-52-56 15:47:008.7[facility] CHE[facility] RMSTU6095-75-25 15:47:003.2MH HeightsCHEM SZTBP9284-26-35 15:47:00 8.7MH [facility] HeightsCHEM ACCXK7261-59-81 15:47:55431IH [facility] HeightsCHEM BUYAI3040-48-38 15:47:0031MH [facility]CHE[facility] BXSCG2772-56-49 15:47:83489DV [facility] HeightsCHEM SXTYS5664-38-50 15:47:004.7MH [facility] HeightsCHEM PANEL 2017-07-07 15:47:90873AP [facility] HeightsCHEM MMPDT9854-35-69 15:47:005.81MH [facility] HeightsCHEM EZHGJ8866-18-37 15:47:0031MH [facility] HeightsCHEM PANEL 2017-07-07 15:47:000.90MH [facility] UdepfczLQPCCZDDFB3239-78-82 15:47:000.5MH [facility] KeqciwlNOWRPUBIKI8906-92-66 15:47:000.1MH [facility] HeightsHEMATOLOGY 2017-07-07 15:47:000.7MH [facility] LzrawygRHFSSQVHFL1931-63-59 15:47:0067.9MH [facility] IiktoxeSAJGWNKSEM3071-10-96 15:47:0021.7MH [facility] HeightsHEMATOLOGY 2017-07-07 15:47:008.2MH [facility] UiapewlTMBMNAZUAW9818-26-06 15:47:002.6MH [facility] JyodlgqGLDBFJLNLN3646-07-41 15:47:000.7MH [facility] HeightsHEMATOLOGY 2017-07-07 15:47:004.3MH [facility] EioclqhPHCCWTINLS3402-28-63 15:47:005.4MH [facility] KmvofcwOPUNGDFTHG2320-22-67 15:47:0012.8MH [facility] HeightsHEMATOLOGY 2017-07-07 15:47:49629YF Greater MlwrkdkVMASYXFOJZ0012-89-61 15:47:0015.3MH [facility] XmkwqngKDWUUUKZBS9336-13-87 15:47:00* Test Item Value Reference Range Interpretation Comments MCH (test code = MCH) 28.5 pg 27.0-31.0 [facility] BswjagbFFVLMOZJYD9271-21-25 15:47:0087.3MH [facility] HeightsHEMATOLOGY 2017-07-07 15:47:0039.3MH [facility] MfzlyhbGHCQVEZRJZ3425-57-51 15:47:0012.1MH [facility] KnhgxtfDQVRGYGCVC0028-73-21 15:47:004.50MH [facility] HeightsHEMATOLOGY 2017-07-07 15:47:007.9MH Greater BeoicorMCWFWZPYUJ1249-79-75 15:47:0032.7MH [facility] NiwrxpwFOHIIIEMYV9697-49-99 15:47:00* Test Item Value Reference Range Interpretation Comments PTT (test code = PTT) 36.5 s 22.9-35.8 [facility] JfgsoijSAXXNWIOUT6087-21-56 15:47:00* Test Item Value Reference Range Interpretation Comments PT (test code = PT) 13.8 s 12.0-14.7 [facility] UddhfssLYMTXSMOLO5968-72-94 15:47:00* Test Item Value Reference Range Interpretation Comments INR (test code = INR) 1.06 1 0.85-1.17 [facility] Glucose, Vobpg5020-16-06 11:37:00* Test Item Value Reference Range Interpretation Comments POC Glucose (test code = POCGLUC) 151 mg/dL 70-115 H CHEM VFYQL6478-40-45 09:27:0016MH [facility] DVERD7239-81-78 09:27:0015.6[facility] HospitalCHE[facility] UOZBT3322-97-33 09:27:008.3[facility] HospitalCHEM MEHCJ6752-87-61 09:27:0023MH [facility] HospitalCHEM MURTO9552-46-62 09:27:03014JK SouthwestCHEM PANEL 2017-01-01 09:27:0037 SouthwestCHEM OQWME5785-01-21 09:27:0050MH SouthwestCHEM CEQJO6569-00-80 09:27:004.40[facility] GHXME8887-10-92 09:27:68856QGFresno Heart & Surgical HospitalCHEM UUHYZ1385-89-77 09:27:003.6M BsigeehdcURDJGWBVYH8741-86-90 09:27:000.1MH WolfcyharPLACQKABGI5097-04-08 09:27:000.1M SouthwestHEMATOLOGY 2017-01-01 09:27:001.8 BszexfyhkYOFGDMRFNM5621-02-33 09:27:001.9[facility] HQIVBDKDNE9376-71-98 09:27:0011.7 UvrtzwdajABODHPZGNV6283-90-47 09:27:000.4 BbeqigrgdRTHUVZHYKZ8793-03-40 09:27:0075.7 KprqfkuneWEQZSVJKRZ1862-26-43 09:27:0011.5 GxblgmgesNMOKLCCIYC3671-78-43 09:27:0012.3M SouthwestHEMATOLOGY 2017-01-01 09:27:0085.9 OrhjmurikTQRJGYUHPC4107-25-47 09:27:0031.7[facility] RZVJREXOBI1085-18-15 09:27:00* Test Item Value Reference Range Interpretation Comments MCH (test code = MCH) 26.4 pg 27.0-31.0 OghuyimeoLLDCLKAZWX7331-44-58 09:27:76395IC QjumwdoaiKHRINBFOCR1036-24-52 09:27:0015.8 WolcqautdTGYRSCZTTD2291-05-46 09:27:0030.7 [facility]HE[facility] 2017-01-01 09:27:003.69 KkvntejvlQSFNHTKJTZ7351-40-45 09:27:0015.4[facility] NRBRZCPJRY1780-78-65 09:27:009.8[facility] HospitalEpvvgqagdJWWYIVLSBE6806-32-04 09:27:007.5[facility] HospitalCHEM MEYVI8967-58-52 20:38:000.8[facility] HospitalCHEM VDDCB1572-50-83 20:38:0021.93 [facility]MOLECULAR LXMUMPEMSH9633-79-23 20:38:00Not Detected (12/31/16 3:38 PM) [facility]MOLECULAR SCSUHIPJQF4178-06-10 20:38:00Detected *ABN*(12/31/16 3:38 PM) [facility]MOLEC[facility] YPVQWAHJCF3125-19-16 20:38:00Not Detected (12/31/16 3:38 PM) [facility]MOLECULAR CEWMOLSJTI4896-10-08 20:38:00Not Detected (12/31/16 3:38 PM) [facility]MO[facility] VQIYUESZGO7099-61-07 20:38:00 Not Detected (12/31/16 3:38 PM) [facility] YSYHEUDRST8050-57-73 20:38:00Not Detected (12/31/16 3:38 PM) [facility] OBDGEIVPSI2463-84-40 20:38:00Not Detected (12/31/16 3:38 PM)[facility] HospitalMOLE[facility]ULAR DIAGNOSTIC 2016-12-31 20:38:00Not Detected (12/31/16 3:38 PM)[facility] HospitalMOLECULAR MVTEXJHAKO3982-82-79 20:38:00Detected *ABN*(12/31/16 3:38 PM)[facility] MOLECULAR IRCYUCUEMG2589-83-58 20:38:00Not Detected (12/31/16 3:38 PM)[facility] HospitalMOLE[facility]ULAR AWBIRRBMZB7349-04-83 20:38:00Not Detected (12/31/16 3:38 PM) [facility] NVWCLWGFAP1529-01-89 20:38:00Not Detected (12/31/16 3:38 PM) [facility] PJCEIJBFCN9547-22-06 20:38:00Not Detected (12/31/16 3:38 PM)[facility] Hospital[facility] QMBBHSMEXQ3306-80-28 20:38:00Detected *ABN*(12/31/16 3:38 PM) [facility] DYCPKUPBPN9115-83-80 20:38:00Not Detected (12/31/16 3:38 PM) [facility]CHEM NCZSH8732-56-44 09:02:0011 SouthwestCHEM PANEL 2016-12-31 09:02:008.0 SouthwestCHEM USXUF2878-01-64 09:02:0016.5 [facility] CHE[facility] TCEBE1008-37-38 09:02:0023MH SouthwestCHEM UJANK1185-85-59 09:02:53744FT SouthwestCHEM NPULK7563-61-81 09:02:0059MH SouthwestCHEM IMUWN8190-58-58 09:02:004.5 [facility]CHEM FJXIK2970-87-33 09:02:94501IJ SouthwestCHEM PANEL 2016-12-31 09:02:006.10 [facility]CHE[facility] ENZLV5875-41-47 09:02:38552[facility] PZAMVCPDIY9807-60-14 09:02:001.4 FjzcbionwYGICEHGVSR4675-43-18 09:02:002.0 CkfrvuiqcBVQCAKOZSO1264-35-58 09:02:000.2MH DprlgwbkwWMHCSARNIC6783-49-43 09:02:0017.0 MqnmmpksrMETQVKNLPD5395-96-94 09:02:009.8 [facility]HEMATOLOGY 2016-12-31 09:02:006.9 HagxejzmpFBLQSRQQFH6277-90-04 09:02:0083.1[facility] YGBBLRBJJS7998-41-84 09:02:0016.0 OavwkypwyFSFSILJTKQ0679-62-47 09:02:0031.0 JsoyqntfqNUWBBVQKLS3421-33-50 09:02:0011.3M CjmqqytvmXETFQLFVIY6212-21-31 09:02:0036.5 GvevnqyjcXNMHOFCFQI6326-17-00 09:02:004.15 [facility]HE[facility]Y 2016-12-31 09:02:0088.0 HxhfhqrsiMVXMBTUUYA7127-21-00 09:02:00* Test Item Value Reference Range Interpretation Comments MCH (test code = MCH) 27.2 pg 27.0-31.0 EgbnfjugbGAZMOBYGQD7206-39-46 09:02:007.9 GwixzlxfjMEKWMNLKDD0997-18-13 09:02:77548YO DrjwcqufaYDVCCLLLRV3217-72-62 09:02:0020.5MH SouthwestCARDIAC FYTFKNR4230-32-31 20:24:000.07MH SouthwestCHEM OHDNP3347-99-92 20:24:007.8 SouthwestCHEM YOUPJ3963-16-07 20:24:0026MH SouthwestCHEM QNDYY0705-22-84 20:24:0011MH SouthwestCHEM WTSWV9057-63-84 20:24:0098MH SouthwestCHEM PANEL 2016-12-30 20:24:75344AC SouthwestCHEM WRMND5522-22-09 20:24:004.8MH [facility] CHE[facility] MBZHT7998-74-99 20:24:0046MH SouthwestCHEM DLHDM2712-64-54 20:24:005.80MH SouthwestCHEM NZWKF4147-20-28 20:24:43081DE SouthwestCHEM DSMXO7448-32-50 20:24:0017.8 GcfonivvrMCCQARXQJK4672-84-01 20:24:000.0 [facility]HEMATOLOGY 2016-12-30 20:24:000.0 SploogbnlKOZMZFPYYU9488-70-21 20:24:001.0[facility] XZCXQXIBNV1129-85-47 20:24:0024.0 KtlugljbxFVGNXSQYOY2747-08-09 20:24:001.2MH UlwrlznqkZMPQSGEGNP3652-38-99 20:24:000.1MH OblcldckoHUVTWAEJQL6886-27-34 20:24:000.0 HcbzmhuyaFCFMSZTFVQ0094-17-36 20:24:003.7 [facility]HEMAT[facility] 2016-12-30 20:24:004.4 BvacpmydkNOOTJSTXNQ3465-99-49 20:24:0091.8 [facility] YZNUKIYXTB4987-87-82 20:24:0016.2M JuufxxsycYHOCORVOBA9223-03-01 20:24:008.1M TblbipvwhGORTWJWNFP0059-14-93 20:24:40327JE KabrbzgjsRKLWSCBYJH1596-99-35 20:24:00* Test Item Value Reference Range Interpretation Comments MCH (test code = MCH) 27.0 pg 27.0-31.0 UdcecgudnBIKRDAIZWY3363-58-68 20:24:0030.9 PifvfxtirUGDGJBEGHT6901-39-88 20:24:0026.2MH QujcginhbKYPYCNSORU7436-13-38 20:24:004.42[facility] 20:24:0038.7[facility] HospitalPubtjtztbJNRQRXALFB4240-89-40 20:24:0087.5[facility] YOEOEBGNDI2920-66-01 20:24:0011.9[facility] HospitalOvlwukqlzYQHZNPEGNN9645-95-75 20:19:00 Negative *NA*(12/29/16 3:19 PM)[facility] HospitalDgtifndayDSDOMWAWCT7471-85-11 20:19:00Positive *ABN*(12/29/16 3:19 PM)[facility] HospitalSPECIAL AACMGZAAC0229-78-64 20:19:005.8 [facility] MFEABBD6039-24-18 17:01:000.11 [facility] EDIJJ7763-29-45 17:01:0048 [facility] MGFIK8780-63-07 17:01:008.2M [facility] PANEL 2016-12-29 17:01:002.4 [facility] XZSEK3859-27-68 17:01:0030.0 [facility] PAMOQ5584-73-25 17:01:007.2M [facility] IYWID5766-83-42 17:01:000.4 [facility] KTVNM7621-46-46 17:01:000.2M [facility] OBTNE1979-77-25 17:01:000.3M [facility] DGQSA8137-77-84 17:01:0019 [facility] PANEL 2016-12-29 17:01:0038 [facility] UVEKB5958-22-41 17:01:000.5 [facility] WNADW5061-16-03 17:01:0086 [facility] PLJYW2671-41-94 17:01:002.9 [facility] FEKIR4264-91-40 17:01:0010.1M [facility] ZZJHZ1708-99-10 17:01:001.8 MgxxnljtfJMBNLLNDZG1891-00-41 17:01:001.15 [facility] 2016-12-29 17:01:00* Test Item Value Reference Range Interpretation Comments PT (test code = PT) 14.9 s 12.0-14.7 GwrsegkpkYTRTLHMPYY3851-31-51 17:01:000.0 BzfhrlkgrVVEBZIDRIZ4680-46-94 17:01:000.0 IawgqrobhGWSRRPPHVU5978-55-34 17:01:000.0 [facility] 2016-08-19 10:28:000.1MH HjigmhpzpVBPBIEJCUA9563-16-75 10:28:000.6[facility] GFPFSBXJIO1714-77-73 10:28:006.8 HwwpxfriwGAIRIWMJEQ9113-02-83 10:28:002.7MH VpokanrtuFROJCRPBVS0805-51-70 10:28:000.7 GuseeczoqIQAMWSRXUQ4131-29-04 10:28:002.0 WvzgeygakGDJNQXRILV3955-69-46 10:28:0016.5 [facility] 2016-08-19 10:28:004.8 PhjkjdqtgCSXRLTAUEP3661-48-13 10:28:0022.4[facility] HDTHTHQRFJ8586-71-21 10:28:0055.6M YnorwiddoOMVIWQZDPG6141-37-39 10:28:008.6M KqkpsvhdzDIYZEEGDXZ0152-11-90 10:28:0025.3M VeqfnkfgeLYGQSOEJBS2192-37-91 10:28:0012.2M EuutijqpnQUEBVDAGXU7262-90-55 10:28:002.97 [facility] 2016-08-19 10:28:0016.0 DwqduklagKXIWGDLDTK7053-00-79 10:28:00* Test Item Value Reference Range Interpretation Comments MCH (test code = MCH) 28.9 pg 27.0-31.0 LwfcqsbktPLMMLJRSVY5863-71-99 10:28:0033.9 MtxdlqjrrNCTRHWLBZN8301-33-93 10:28:0085.4 ZtwcodxeaNZBCYRXFRJ7684-45-35 10:28:007.6M [facility] 2016-08-19 10:28:95204BU SouthwestCHEM OABSB4060-51-75 12:05:0013 [facility] HRHRP7819-82-67 12:05:008.2M [facility]CHE[facility] TIONG4365-22-83 12:05:0027 [facility]CHE[facility] GJJTQ2244-04-50 12:05:33596XS [facility]CHE[facility] ONVZT7313-99-47 12:05:003.8 [facility] XVJPH8695-66-03 12:05:74969BG SouthwestCHEM PANEL 2016-08-18 12:05:005.10MH SouthwestCHEM SDDJZ5181-06-45 12:05:0062[facility] CHEM ZGSJA3714-34-04 12:05:04739URFresno Heart & Surgical HospitalCHEM NTRRY1413-04-89 12:05:0010.8[facility] HospitalYljxgpfvrKILPGQXCPH2092-87-60 12:05:000.1MH VdghxjtswCDEDIHADLL9681-42-47 12:05:001.0[facility] HospitalPwabkppynKDLACEHOQO3463-03-53 12:05:008.5 [facility]HEMAT[facility]Y 2016-08-18 12:05:002.5 UinideyesVMTHJRHRFO2798-64-39 12:05:002.2[facility] BDSLOHCZQY6886-35-25 12:05:0059.4 JcdfofsiySZKJLZJHIA5545-37-12 12:05:0017.9 IsbzornkfTXKCBJOOWP1977-11-70 12:05:000.7[facility] HospitalPabkjrnbuDIFIQAJKGU1320-62-11 12:05:0015.2M FqgznjakkFPNVLBOVMT2630-70-39 12:05:006.8[facility] HospitalHEMATOLOGY 2016-08-18 12:05:0032.5 SqnlzsdbzSVVTEYIRJP7725-43-52 12:05:00* Test Item Value Reference Range Interpretation Comments MCH (test code = MCH) 27.7 pg 27.0-31.0 [facility] HospitalWqnbcoadnDCGRSIVCFG9235-12-68 12:05:45290SHFresno Heart & Surgical HospitalOxtbxneqpSCTDZCYNBT7673-89-35 12:05:0016.1MS[facility] CenterInyhsvqpnDHMRREUZAW0915-58-58 12:05:007.8[facility] HospitalHEMATOLOGY 2016-08-18 12:05:002.93 HjgneqvcsIZERAMGIBW1973-09-95 12:05:0014.3[facility] QEFLEKQFOZ0442-53-03 12:05:0025.0[facility] HospitalGkiznabcuLMCBWJUVCN4823-92-27 12:05:008.1M IzqwbfkddFFFQIQXCMJ9844-35-76 12:05:0085.2MS[facility] CenterCHEM JFUZL3448-33-34 16:41:006.38[facility] HospitalAmithlknbGQOZZLJJWRFS3580-35-80 10:08:0027[facility] MGGDWCBZGJCG1678-12-64 10:08:007.6[facility] CenterQdcwrrgkfIBEWJGOMEPUR8921-96-05 10:08:009.8 [facility] HospitalGmgybkftcJMTXUAVWXRHT8776-29-04 10:08:0017[facility] HospitalTsqjijilsIKSNZMYUEWHY6644-27-46 10:08:003.8[facility] HospitalSpmncsqetTFVWFMPXKNVP6203-73-63 10:08:74098CQF[facility] Hospital NBEGRWPWAPYS7876-13-57 10:08:004.20[facility] HospitalRmukpesfeXARSASIDCLBL1775-81-26 10:08:00 123[facility] HospitalEuvytsltsMOXSOKKYXKTV1817-26-60 10:08:0045[facility] HospitalELECTROLYTES 2016-08-17 10:08:68989TA VxxxmtwrpCGSUSJASAU6077-47-38 10:08:007.8[facility] FSFDLNJYXC7657-53-08 10:08:0016.4[facility] HospitalVndnyhspzJVLOBBZRAE6330-88-99 10:08:0031.9[facility] HospitalLlpcibjkaNDIWHLYXQC2000-65-56 10:08:11519MBFresno Heart & Surgical HospitalMcmrgawcjNZMSAXYIXN6392-12-04 10:08:00* Test Item Value Reference Range Interpretation Comments MCH (test code = MCH) 27.4 pg 27.0-31.0 [facility] HospitalIhfftoyxyCAJIBLCQHF0718-12-80 10:08:0086.0[facility] HospitalCtbynhubsJCHSAUJLIM3647-87-76 10:08:0025.9[facility] HospitalXengpcyvoHZOOSICMGI2818-28-68 10:08:0014.6[facility] CenterHEMATOLOGY 2016-08-17 10:08:008.3MH UyescyszyEMOINLYQOX6460-45-54 10:08:003.02[facility] IBLIUTUJSZLG2251-76-70 03:02:0028[facility] HospitalPfgvzduknOPQMVORNGKGO5518-44-93 03:02:007.8 [facility] HospitalNvqonzpynRPJCMFEYRHFU4769-45-13 03:02:0011.4[facility] HospitalELECTROLYTES 2016-08-17 03:02:72742YYFresno [facility] & Surgical HospitalHoxummibiGNTXBVEVZZPS7507-88-58 03:02:003.80[facility] HospitalRkczieuomYNRURRSTGSIZ9976-59-26 03:02:0043[facility] HospitalLeyfpromwRVLIKBUCJGAT1816-07-91 03:02:003.4[facility] HospitalMeywlgdoiLVIJGOMIAUKS9539-77-00 03:02:72522UOFresno [facility] & [facility] Hospital DMVDXYCSGWWH1813-86-63 03:02:80626EIFresno Heart & Surgical HospitalGxztowlhcBLGPKTCVTXVW8452-88-97 03:02:0019 HfzhtraghDHKULITCYB6913-05-79 09:50:002.0[facility] HospitalTcppcvlwqJUWHRHYNSB3766-46-70 09:50:000.6MH LxknndacpRRGZYAWWQQ8450-45-69 09:50:000.6MS[facility] CenterHEMATOLOGY 2016-08-16 09:50:008.0[facility] HospitalRpvbnitmuAORTNSMEDQ6019-42-43 09:50:000.1[facility] IYRYMAVDBU2722-48-80 09:50:001.9[facility] HospitalTsebkvephLFLLMFICHD2305-29-86 09:50:0063.5[facility] HospitalCklukavxsMCEEDHUUON7713-09-51 09:50:0015.2MS[facility] CenterIcfbfqlboVFGNLPNKIY2140-74-39 09:50:0015.9[facility] HospitalQvxysdmlgTDUSROMFAM2747-26-30 09:50:004.8[facility] EHNYCPX7492-73-53 10:45:00Product available (08/15/16 5:45 AM)[facility] YDQKGMU5810-25-48 06:43:00Product available (08/15/16 1:43 AM)[facility] BLOOD BANK IRVVRUZ9787-93-09 12:56:00Product available (08/14/16 7:56 AM)[facility] INSRGHV9461-14-48 10:05:00Negative (08/14/16 5:05 AM)[facility] HospitalXggejdyigIFPGTSTIRZ7361-80-14 10:05:00Moderate *ABN*(08/14/16 5:05 AM)[facility] HospitalJdllzpfykSTZTKTGMBW4216-48-92 10:05:00Normal (08/14/16 5:05 AM)[facility] GQWBPMHXJU4651-07-80 10:05:15415CWFresno Heart & Surgical HospitalIgnyjvixwYXNLFMYZLT2109-38-79 10:05:009.7[facility] HospitalCHEM IEEKN7026-40-16 20:15:0023.22[facility] HospitalXjxtifhalCPVUIIIGHC7310-43-88 15:00:00Negative *NA*(08/12/16 10:00 AM)[facility] HospitalVqoywppbsLXHBKNARZX1916-93-71 15:00:00 Negative (08/12/16 10:00 AM)[facility] HospitalMOLECULAR KVMVMLQSAZ7286-98-22 15:00:00 5.5[facility] HospitalMOLECULAR MWYJAWJXQD1087-21-61 15:00:76955095HIFresno Heart & Surgical HospitalCHEM URKCB7303-86-89 07:52:005.3MS[facility] CenterCHEM IXAMJ6451-92-68 07:52:001.9 [facility]CHE[facility] RTZND6706-48-20 07:52:007.4 [facility]CHE[facility] STBDJ7429-30-32 07:52:001.9 [facility]CHEM EODHK7779-05-86 07:52:0013 SouthwestCHEM PANEL 2016-08-12 07:52:0021MH SouthwestCHEM OUFTH0577-57-58 07:52:0056 [facility]CHEM FHIOR6824-18-22 07:52:000.5 [facility]CHE[facility] ZZEHM8452-13-11 07:52:005.5 [facility]CHE[facility] PVTHB2320-82-29 07:52:000.3MH SouthwestCHEM ZGBAM2563-89-68 07:52:008MH SouthwestPARATHYROID UCEJTVU6875-08-35 07:52:001.07 [facility] PARATHYROID TOMENUO5813-37-40 07:52:001.03 SouthwestCHEM MLPOF2844-78-22 07:43:001.8 [facility]CHE[facility] JZUWV6252-58-94 07:43:004.7 SouthwestPARATHYROID LAUBIGO6039-12-69 07:43:001.13 SouthwestPARATHYROID XGBDEMH3064-49-78 07:43:00 1.13 [facility]CHEM CYDKD0395-66-58 22:11:002.0MH SouthwestCHEM BNYLV2610-40-88 22:11:005.1M SouthwestCHEM GTYOR2686-56-91 22:11:000.5 SouthwestCHEM PANEL 2016-08-10 22:11:007.1M SouthwestCHEM PIKEQ9413-27-71 22:11:008 [facility]CHE[facility] PQUHR8350-34-02 22:11:0055 [facility]CHE[facility] EMVJL8186-98-19 22:11:0018 [facility]CHE[facility] XDLWR7317-61-44 22:11:0010 [facility]CHE[facility] VVCNC5774-84-14 22:11:000.4 SouthwestPARATHYROID TYKNCRA0259-56-92 22:11:001.01 [facility] PARATHYROID OAIFFJO9394-50-64 22:11:001.04 SouthwestCHEM BODOA0886-69-22 21:57:004.4 SouthwestCHEM JWHML1431-87-59 21:57:001.8 SouthwestHEMATOLOGY 2016-08-10 21:57:65456CP FysuvurgqBTMYLWCGUC6167-74-35 21:57:00* Test Item Value Reference Range Interpretation Comments PT (test code = PT) 15.3 s 12.0-14.7 [facility] HospitalGnebisrfwBMAIKJSPPI8929-73-23 21:57:001.18[facility] HospitalLswylxcyzBPXETGCUHT4294-10-21 21:57:00* Test Item Value Reference Range Interpretation Comments PTT (test code = PTT) 39.5 s 22.9-35.8 [facility]2017-05-15 20:23:00Clotted 1*ABN*(08/10/16 3:23 PM)[facility]2017-05-15 20:23:00Brown *ABN*(08/10/16 3:23 PM)[facility] BHJNKI4831-02-02 20:23:89284332DR[facility] STLSUW5712-90-77 20:23:0056 [facility] LQNVIZ6833-80-72 20:23:0030[facility]2017-05-15 20:23:00Pleural (08/10/16 3:23 PM)[facility] JJPHIK4023-78-72 20:23:0057[facility] BDHGWL5715-70-06 20:23:0013[facility]2017-05-15 20:23:00Pleural (08/10/16 3:23 PM)[facility]2017-05-15 20:23:008.00 [facility]2017-05-15 20:23:00Pleural *NA*(08/10/16 3:23 PM)[facility]2017-05-15 20:23:0016[facility]2017-05-15 20:23:00Pleural *NA*(08/10/16 3:23 PM)[facility]2017-05-15 20:23:00 1.7[facility] PQAQVK8586-07-21 20:23:67848CY[facility] FLUIDS 2016-08-10 20:23:00Pleural (08/10/16 3:23 PM)[facility]2017-05-15 20:23:00Pleural *NA*(08/10/16 3:23 PM)[facility]2017-05-15 20:23:00 81[facility]2017-05-15 20:23:00Pleural *NA*(08/10/16 3:23 PM)[facility]2017-05-15 20:23:[address] [place] [address] INZSA8483-18-89 15:18:0056[facility] AWJHF2114-40-03 15:18:0032[facility] PANEL 2016-08-10 15:18:[facility].6[facility] PHBZK3003-53-97 15:18:0034.0[facility] CHEM WZESL6419-79-86 15:18:004.6[facility] EYFAE8014-86-41 15:18:0097[facility] XSKGX4306-51-42 15:18:90707ABCottage Children's HospitalYmvxcypduYSBUBJAGNM9689-93-59 08:40:00Normal (08/10/16 3:40 AM)[facility] HospitalEmaztqzhnJZYMDQGBXJ3599-61-53 08:40:00Normal (08/10/16 3:40 AM)[facility] CenterUjfdpjrslQNTFIJGARR4091-78-62 08:40:00* Test Item Value Reference Range Interpretation Comments PT (test code = PT) 14.9 s 12.0-14.7 [facility] HospitalAkplvetyuTIZSFDLFFB4751-26-05 08:40:001.15[facility] HospitalGgxhlaeafPOARSOUCRE7070-26-56 08:40:00* Test Item Value Reference Range Interpretation Comments PTT (test code = PTT) 39.5 s 22.9-35.8 [facility] ARGDROO5662-55-75 03:44:00Negative (08/09/16 10:44 PM)[facility] HospitalXczmhsekkHRZIQTIUVB2064-74-25 17:08:00Positive *ABN*(08/08/16 12:08 PM)[facility] HospitalMlpxoxykvQCFWVPCIAU5575-58-70 17:08:00Negative *NA*(08/08/16 12:08 PM)[facility]2017-05-13 16:46:00Pleural *NA*(08/08/16 11:46 AM)[facility]2017-05-13 16:46:005.6[facility]2017-05-13 16:46:00Pleural (08/08/16 11:46 AM)[facility]2017-05-13 16:46:91267 [facility]2017-05-13 16:46:3924408RX[facility]2017-05-13 16:46:00Pleural (08/08/16 11:46 AM)[facility]2017-05-13 16:46:0063 [facility]2017-05-13 16:46:00Brown *ABN*(08/08/16 11:46 AM)[facility]2017-05-13 16:46:00Marked *ABN*(08/08/16 11:46 AM)[facility]2017-05-13 16:46:00Brown *ABN*(08/08/16 11:46 AM)[facility] BODY QWBIAV3162-67-45 16:46:0017[facility] HospitalBODY FKNOIH3479-79-93 16:46:0069[facility] KXRPXG6333-46-03 16:46:0014[facility] HospitalCARDIAC MWECRYX6603-36-45 11:58:000.02[facility] HospitalCHEM UMMBD4887-74-85 11:58:006[facility] HospitalCHEM PANEL 2016-08-08 11:58:000.4[facility] HospitalCHEM OWDHM6583-12-40 11:58:007.2[facility] NSOAA8293-43-09 11:58:000.5[facility] HospitalCHEM NEKDJ8283-62-74 11:58:002.8[facility] HospitalCHEM BGVNX1534-98-50 11:58:0016[facility] HospitalCHEM IXYXW1290-97-85 11:58:0010.0[facility] HospitalCHEM HDADK2171-43-33 11:58:0078 SouthwestCHEM PANEL 2016-08-08 11:58:0022[facility] HospitalLxszfexlkGBNXNDQPNT5734-15-19 11:58:001.07[facility] PICYHCCFDW9242-46-28 11:58:00* Test Item Value Reference Range Interpretation Comments PT (test code = PT) 14.1 s 12.0-14.7 [facility] HospitalWlspvuvcvODWEOVUCMV4694-38-38 11:58:00* Test Item Value Reference Range Interpretation Comments PTT (test code = PTT) 40.1 s 22.9-35.8 [facility] HospitalCHEM OPFED2142-72-19 11:50:66666WJFresno Heart & Surgical HospitalSuwiehdcoXSODXDNJXC5997-68-30 19:00:00Negative *NA*(07/25/16 2:00 PM)[facility] 2016-07-25 04:02:45013YP [facility] MJIICRH7262-24-98 04:02:41211ZQ [facility] HLTOWXM1587-13-53 04:02:000.02[facility] RVUQUBH3527-15-83 04:02:006.7[facility] BRVRHWC3470-45-45 04:02:004.7[facility] HeightsCHEM OMFTP9241-06-34 04:02:0018[facility] CHEM UEZEF1868-21-01 04:02:005[facility]CHE[facility] TSXWV1709-31-83 04:02:006.2 [facility]CHE[facility] TUEYJ9375-68-55 04:02:000.4[facility] HeightsCHE[facility] PANEL 2016-07-25 04:02:27888VH [facility] HeightsCHE[facility] CWPJS0136-61-82 04:02:0019MH [facility]CHE[facility] KBFOC0135-93-87 04:02:003.7[facility]CHE[facility] PANEL 2016-07-25 04:02:13180HT [facility] HeightsCHE[facility] QFVQQ4241-75-08 04:02:004.02[facility]CHE[facility] WHAME5303-64-43 04:02:0034MH [facility] HeightsCHEM PANEL 2016-07-25 04:02:21612PK [facility] HeightsCHE[facility] ZVPJS8627-31-49 04:02:008.7[facility]CHE[facility] HJSWK3290-93-21 04:02:008.3[facility] HeightsCHE[facility] PANEL 2016-07-25 04:02:0013MH [facility]CHE[facility] DDBYT5370-55-15 04:02:0074MH [facility]CHE[facility] XWMHG6576-26-03 04:02:002.5[facility]CHE[facility] UNRXE5285-38-31 04:02:0011MH [facility] HeightsCHEM AZSXE6338-39-85 04:02:008.7[facility] CHEM QWAWG7167-02-45 04:02:000.4[facility] PtwvnowOJKGJFGWWS2670-29-93 04:02:00 7.3[facility] CjcbtqwPWPJLZYYNE4842-88-07 04:02:003.44[facility] RIZWEQRXIA1327-00-23 04:02:008.8[facility] AwpnfvfNNSBACDQYB4701-34-25 04:02:00 29.9[facility] DjwxzjeIIDSNQMSNG3734-85-41 04:02:009.5[facility] KSNSBNJKQG3885-10-47 04:02:0087.1[facility] AsmtwmcQSLLEFNUBE3121-99-52 04:02:00 31.6[facility] SpyafpxUAKOMEYIGA9246-59-70 04:02:59540SO [facility] CCVJKLKTBH5094-31-42 04:02:0015.8[facility] VirhshnJYPKZJHZIZ9413-13-62 04:02:00 * Test Item Value Reference Range Interpretation Comments MCH (test code = MCH) 27.5 pg 27.0-31.0 [facility] LhhgenuOUHGXOWLUY8449-55-73 04:02:004.2[facility]HEMATOLOGY 2016-07-25 04:02:000.5[facility] DmkipqaSBMCHYODLG3068-62-41 04:02:001.3[facility] MhntixfUIULTNBOZD7696-63-26 04:02:000.1[facility]HE[facility] 2016-07-25 04:02:000.7[facility] BmggkduKEKLPAAIFP9448-21-68 04:02:005.3[facility] HhkagqfLNFMWFDINI3143-94-98 04:02:0014.3[facility]HE[facility] 2016-07-25 04:02:002.8[facility] UfngoztAODRBXALLD3106-93-91 04:02:0048.0[facility] ZpyyhaeGSRAMFEATA8046-73-31 04:02:0031.7[facility] 2015-[facility]-06 08:37:0013.3[facility] VauqTTECEVRKIEWD0292-58-25 08:37:008.6MH [facility] RmkfXLWMBTJXZGYT6923-55-59 08:37:004.3[facility] CityELECTROLYTES 2015-11-06 08:37:54811MT[facility] BopqEBLQBFFKXWCM3334-04-66 08:37:0029[facility] KlhzBSCBAVCODWHB3830-47-52 08:37:69[address]XAA[facility] [facility] CityELECTROLYTES 2015-11-06 08:37:0023[facility] HospitalHjrfTZVQGZWYNDNC3006-65-19 08:37:0027[facility] HospitalFypwWOZMJBUTKQTP5311-27-38 08:37:41903CPA[address] [facility] CityELECTROLYTES 2015-11-06 08:37:002.85[facility] WwtsCSLEAZMMOJ9340-47-33 08:37:008.8[facility] YzpmTVCQUFIABF2516-97-48 08:37:0049.7[facility] CityHEMATOLOGY 2015-11-06 08:37:0011.3M[facility] JfqvAVZJMYSACZ9924-70-42 08:37:0030.1M[facility] VqvtPJOHCIOUKC6032-95-91 08:37:000.1[facility] CityHEMATOLOGY 2015-11-06 08:37:000.6[facility] LttgJSTYEHTGMT7068-49-28 08:37:001[address]7[facility] IscdMXMGZRGBLE8382-04-46 08:37:000.5[facility] CityHEMATOLOGY 2015-11-06 08:37:002.8[facility] DundKUWJKRQRNZ6220-34-77 08:37:[address]7[facility] HkgcPBAADQEOTM9361-79-10 08:37:008.6[facility] CityHEMATOLOGY 2015-11-06 08:37:003.26[facility] HxsbULRQFOMDOZ5807-94-65 08:37:0082.6[facility] KbghOAOYEXZNNB5149-61-25 08:37:83146ZCAsc[facility] [address] CityHEMATOLOGY 2015-11-06 08:37:009.1[facility] YxmbKEBEBTKTKX8864-35-74 08:37:[address]0[facility] LudyAOILFMEZFG6563-05-34 08:37:[address]0[facility] CityHEMATOLOGY 2015-11-06 08:37:0026.9[facility] AatdCUASGSSQOF6231-60-38 08:37:00* Test Item Value Reference Range Interpretation Comments MCH (test code = MCH) 26.5 pg 27.0-31.0 [facility] YFMFH5841-92-15 22:36:03248ZM [facility] CityURINE AND MSFJQ8236-69-58 22:36:00Negative (11/05/15 5:36 PM) [facility] STOOL 2015-11-05 22:36:00Negative (11/05/15 5:36 PM) [facility] STOOL 2015-11-05 22:36:00Negative (11/05/15 5:36 PM) [facility] 2015-11-05 22:36:007.0 [facility] URZWZ1876-74-22 22:36:001.020 [facility]UR[facility] WORIL7003-18-52 22:36:00Negative *NA*(11/05/15 5:36 PM) [facility] BOKXK9435-94-23 22:36:00Dark Yellow *NA*(11/05/15 5:36 PM) [facility] UHQIB5583-98-58 22:36:00Slight *ABN*(11/05/15 5:36 PM) [facility] FFTIK8180-86-49 22:36:002MH [facility] CityUR[facility] AND STOOL 2015-11-05 22:36:005 [facility]UR[facility] AND NSNIS2376-71-31 22:36:001[facility] LuvgXEQTECGVHPVE6404-09-39 09:41:0030[facility] CityELECTROLYTES 2015-11-05 09:41:0045[facility] UnxiPUDNNFLWPHNU5096-42-51 09:41:11469DY[facility] PcnwMBIRUPAMQCCH6240-68-88 09:41:[address] CityELECTROLYTES 2015-11-05 09:41:001.89[facility] GtrrBPAQXROBUKGH7341-96-98 09:41:05646QJA[address] [facility] BjcbNUEPBBSCKJYM0426-68-95 09:41:004.1[facility] CityELECTROLYTES 2015-11-05 09:41:98106NEAsc[facility] FzwsSAJLSTNFTSZZ9834-99-54 09:41:008.1[facility] LnonLRFJMSRNEEEJ2727-42-06 09:41:0012.[address] [place] [address] CityHEMATOLOGY 2015-11-05 09:41:000.6M[facility] LggxUXSWXFONJQ1308-88-49 09:41:000.4[facility] MvvyLTIMONKLKQ1533-08-48 09:41:0052.1M[facility] CityHEMATOLOGY 2015-11-05 09:41:003.0[facility] VjewUHERYZXUBX6164-16-14 09:41:001.7[facility] VdugJGFOWNENRK1425-94-80 09:41:000.7[facility] CityHEMATOLOGY 2015-11-05 09:41:0029.7[facility] UdkbJRBFGSLITV6548-23-37 09:41:007.7[facility] FtcmIBBZDIFWST2977-11-47 09:41:009.8[facility] CityHEMATOLOGY 2015-11-05 09:41:83637CBA[facility] HnvvJMEXHIBWWO8552-91-43 09:41:009.0[facility] UhiyUTZQIUVLZT9877-22-96 09:41:0032.2[facility] CityHEMATOLOGY 2015-11-05 09:41:00* Test Item Value Reference Range Interpretation Comments MCH (test code = MCH) 26.4 pg 27.0-31.[address] [facility] LwucXTCBBLHGAS5669-45-14 09:41:0016.3[facility] CityHEMATOLOGY 2015-11-05 09:41:008.5[facility] WnzoPJGSWDPSVF7976-80-03 09:41:0082.1[facility] SshuVZJOISBFVB7473-01-43 09:41:0026[address]4[facility] CityHEMATOLOGY 2015-11-05 09:41:005.8[facility] KnagEGVDJSXBUC9092-66-04 09:41:003.22[facility] QgseDSBGXTWEUMWH5697-27-71 10:29:[address]QA[address] [facility] CityELECTROLYTES 2015-11-04 10:29:68030RJA[facility] UzfhJZDJMODWQCTF8066-18-49 10:29:004.0[facility] AglvCJUXYJMMGHOF0955-67-28 10:29:[address] [place] [address] CityELECTROLYTES 2015-11-04 10:29:30491TWA[facility] MteyMIOYUBXIOPAV4063-09-08 10:29:0019[facility] TvrnOJTNUTFXPGGX1769-33-89 10:29:003.6[facility] CityELECTROLYTES 2015-11-04 10:29:0037[facility] WgdfCQVVIQBSJDTD4347-80-53 10:29:002.6[facility] ElnsAXNAWJTGTFCI3061-80-91 10:29:0030[facility] CityELECTROLYTES 2015-11-04 10:29:002.21[facility] GlogWWSXPYDYBXXP7167-18-37 10:29:[address]0[facility] YsfbYJRBKYEVII5796-50-30 10:29:008.9[facility] CityHEMATOLOGY 2015-11-04 10:29:003.31[facility] YkglIJHWVRGOJN2698-35-39 10:29:[address]7[facility] YjzuVQECRWYWOV8025-33-82 10:29:0016.2[facility] CityHEMATOLOGY 2015-11-04 10:29:47290ISA[facility] MhgpFTSCHZBEBT8126-85-34 10:29:0082.6[facility] OgfiNQPIEWVDGG1311-52-67 10:29:0032.5[facility] CityHEMATOLOGY 2015-11-04 10:29:00* Test Item Value Reference Range Interpretation Comments MCH (test code = MCH) 26.8 pg 27.0-31.[address] [facility] XvxeZNIRVALNQQ9608-23-58 10:29:0027[address]4[facility] CityHEMATOLOGY 2015-11-04 10:29:009.3[facility] HazsNXIBIKSBHO7505-25-63 10:29:000.0[facility] NyqcOQJEJEFFYK1765-47-94 10:29:[address]0[facility] CityHEMATOLOGY 2015-11-04 10:29:0011.7[facility] TjgnPBDBZXSZES0870-75-73 10:29:006.1[facility] RkpeAMORRVKVQI9548-13-86 10:29:[address]57[address] [place] [address] CityHEMATOLOGY 2015-11-04 10:29:000.4[facility] TfinMNYIXRQJFM0349-54-52 10:29:003.8[facility] PpxzLGLXYRVEWW2851-72-87 10:29:000.8[facility] CityHEMATOLOGY 2015-11-04 10:29:001.[address] [place] [address] XvysFWSKTHYDFZ0805-13-95 10:29:000[address] [place], [place] [address]CHEM JSWGV8104-84-33 09:49:001.[address] [place], [place] [address]CHEM PANEL 2015-11-02 09:49:005.[address] [place] [address] LjjxBAOLVHMGGE1396-28-54 09:49:00* Test Item Value Reference Range Interpretation Comments PTT (test code = PTT) 36.7 s 22.9-35.[address] [facility] BhapCERMJUCFPH9900-62-32 09:49:00* Test Item Value Reference Range Interpretation Comments PT (test code = PT) 16.1 s 12.0-14.[address] [facility] AnerRBTWHVXXPJ8279-61-58 09:49:001.[address] [place] [address] CityHEMATOLOGY 2015-11-02 09:49:000.0[facility] VpwgWDZNWSJUQX6659-22-30 09:48:00Negative *NA*(11/02/15 4:48 AM)[facility] WGCXFLT6729[facility]96-94 23:27:008.3[facility] CityCARDIAC GDTEVRN2387-40-10 23:27:0098[facility] CityCARDIAC ENZYMES 2015-11-01 23:27:000.05[facility] XZDKQCP2118-89-59 23:27:008.1[facility] CityCHEM BOMCE1362-48-53 23:27:0035[facility] [place] CityCHEM LKGUX0873-24-65 23:27:007.7[facility] CityCHEM MZELV8733-79-81 23:27:0030[facility] CityCHEM PYKIS3694-45-57 23:27:000.5[facility] CityCHEM HTNDM1294-24-52 23:27:66456TCA[facility] CityCHEM DZHCG1292-88-88 23:27:000.5[facility] CityCHEM PANEL 2015-11-01 23:27:005.1M[facility] CityCHEM TZXXX5182-97-13 23:27:0013[facility] CityCHEM DQTUF9038-50-25 23:27:002.6MH [facility] ZycvWEZRVLNROJ2131-31-34 23:27:000.[address] [place], [place] [address]HhibPZAVABXXXGRH2007-38-98 08:46:005.5[facility] OEBKUUXSTKCD0634-55-51 08:46:71379EQ [facility] JmjbyjwKNHHGKPIOGZC6508-12-45 08:46:003.90MH [facility] XmgdcepJOHTNOQICKYB2977-27-15 08:46:58018FS [facility] KwopywiPXHJUDRPZURN9598-81-60 08:46:0027MH [facility] QgksuenJVSTSGYCYTNV4106-91-34 08:46:42254SG [facility] LequoudKHMPQUQRFAPX2574-20-66 08:46:0062MH [facility] PesvczaEHDTSGAQFIPD4665-54-82 08:46:005.5[facility] HeightsELECTROLYTES 2015-10-28 08:46:11794PM Greater JjldxgpDHYOQPJPFBZR7068-14-79 08:46:000.5MH [facility] ZkgirjhWRGKDYVRMKKS7567-98-67 08:46:0047MH [facility] HeightsELECTROLYTES 2015-10-28 08:46:0046MH [facility] MjvwzsyLUVBHWURJXTF1223-68-94 08:46:0015.5MH [facility] MsbbvbhOIIWXZAXCRNR4324-23-27 08:46:002.8[facility] HeightsELECTROLYTES 2015-10-28 08:46:008.4MH [facility] SaazkgaGTQLHTVTTSMJ3418-13-13 08:46:008.3MH [facility] UbxvetjRUYUODNNNSLR8305-39-60 08:46:0016MH [facility] HeightsELECTROLYTES 2015-10-28 08:46:0019MH [facility] WjumwvsDABSKWQWCQMI1258-07-50 08:46:000.6MH [facility] HeightsCHEM PBIOU2202-97-65 10:59:0021MH [facility] HeightsCHEM PANEL 2015-10-27 10:59:005.8MH [facility] HeightsCHEM HOUFM6824-64-03 10:59:09040QW [facility] HeightsCHEM WTGGI5363-65-60 10:59:003.56[facility]CHE[facility] PANEL 2015-10-27 10:59:0057MH [facility] HeightsCHEM FVKZK7547-52-49 10:59:0012.8[facility] HeightsCHEM VQXWA6904-65-07 10:59:008.7MH [facility] HeightsCHEM PANEL 2015-10-27 10:59:0026MH [facility] HeightsCHEM VHGIJ3138-14-95 10:59:94206EH [facility] HeightsCHEM DBZOL1430-15-33 10:59:87795VE [facility] HeightsCHEM PANEL 2015-10-26 09:41:0027MH [facility] HeightsCHEM NFJIT8237-44-45 09:41:008.2MH [facility] HeightsCHEM OABET6308-19-85 09:41:0012.1MH [facility] HeightsCHEM PANEL 2015-10-26 09:41:005.1MH [facility] HeightsCHEM YVMNC2318-59-84 09:41:21387DF [facility] HeightsCHEM IXHQJ1092-59-32 09:41:20730KP [facility] HeightsCHEM PANEL 2015-10-26 09:41:0029MH [facility] HeightsCHEM LNXZT3329-65-04 09:41:0041MH [facility] HeightsCHEM CXWAZ2355-74-37 09:41:002.88MH [facility] HeightsCHEM SVDTM6237-31-37 09:41:0054MH [facility] HeightsCARDIAC JJPSCWX0692-29-64 18:01:000.11MH [facility] HeightsCARDIAC XKLOHFL3845-99-69 18:01:008.2MH [facility] HeightsCARDIAC ENZYMES 2015-10-24 18:01:0076MH [facility] CtwgimiQSHXXCLZPD6419-10-22 18:01:00<3.1MH [facility] AlxnrtuWRUTKHZGXZ8409-19-43 18:01:00Negative *NA*(10/24/15 1:01 PM)MH [facility] HeightsCARDIAC XXKUNIQ0725-18-04 11:22:000.10MH [facility] HeightsCARDIAC SPZNVDF6625-09-87 11:22:0010.3MH [facility] HeightsCARDIAC TKELRVU9256-51-42 11:22:0081MH [facility] HeightsCHEM EYXVU 3.7[facility] CHEM EQEXV3610-92-37 07:29:001.8MH [facility] JkcdvuiYSDRBDMFLY9083-56-05 07:29:00 1.8MH [facility] GsderhyKFOMFDIRJV2543-91-28 07:29:007.4[facility] IWZJIIKASL2017-12-20 07:29:000.8MH [facility] FysvekvWDZOMYVWLQ9604-12-32 07:29:00 0.9MH [facility] JxqisykIMAAGCHRGM3216-94-63 07:29:008.0MH [facility] JNDEKBKQXP0182-48-91 07:29:007.4MH [facility] JddvmvhTDDXIBBSQS7433-92-75 07:29:00 0.3MH [facility] WdnbxtfOJBMOLKFVR7125-19-55 07:29:0016.4MH [facility] AAWBZXJVIV0902-13-71 07:29:0067.9MH [facility] DtvhaplXRHNBDOJYC1823-71-55 07:29:00 8.9MH [facility] JgsrftxWPUJHCLIFO6369-31-67 07:29:0031.8[facility] LRHDKCCPTC0918-04-23 07:29:00* Test Item Value Reference Range Interpretation Comments MCH (test code = MCH) 26.4 pg 27.0-31.0 MH [facility] EncbartJRMJIFWNFX4640-97-60 07:29:0083.1MH [facility] HeightsHEMATOLOGY 2015-10-22 07:29:29058DZ Greater XrygztyCKVFGWETLZ9959-92-32 07:29:0017.2MH [facility] GbztwwoZICDIBTODP7096-62-19 07:29:0010.8MH [facility] HeightsHEMATOLOGY 2015-10-22 07:29:009.5MH [facility] LztgqkoCHDDFVNTNT6060-69-78 07:29:003.61MH [facility] BnngkfeGMRENPYKKB1309-47-41 07:29:0030.0MH [facility] HeightsIMMUNOLOGY 2015-10-21 16:35:00Negative *NA*(10/21/15 11:35 AM)MH [facility] HeightsCARDIAC LLYOPXQ8539-31-74 10:02:0079MH [facility] HeightsCARDIAC DXDGYRI8113-90-21 10:02:00 0.09MH [facility] HeightsCARDIAC DGDZXGI3249-58-72 10:02:008.6[facility] CARDIAC WFZITHQ0220-64-40 10:02:0010.9MH [facility] BvogffrKXHCNWBGLI5682-21-69 10:02:0030.3MH [facility] ScjzhfxRAJOKURLAY4132-44-42 10:02:00* Test Item Value Reference Range Interpretation Comments MCH (test code = MCH) 25.9 pg 27.0-31.0 MH [facility] NxbwsbrKHWSHCCWKS1616-94-07 10:02:008.7MH [facility] HeightsHEMATOLOGY 2015-10-21 10:02:17774FA [facility] TekkumbTNUCVQZUWY7318-95-14 10:02:0017.5MH [facility] XwhcishOZKZWPHGAE5417-08-41 10:02:0011.4MH [facility] HeightsHEMATOLOGY 2015-10-21 10:02:003.67MH [facility] RtogdnfJEDXLNDCLC9698-07-98 10:02:0085.4MH [facility] KqofkriIIPJSOVQWC9870-73-32 10:02:0031.3MH [facility] HeightsHEMATOLOGY 2015-10-21 10:02:009.5MH [facility] QquwdbvCKFHFWWDYX1523-17-51 10:02:001.3MH [facility] PxpznblSCZYIEKXRQ4061-46-66 10:02:007.5MH [facility] HeightsHEMATOLOGY 2015-10-21 10:02:001.9MH [facility] BfajuzwPFJFMXXWPF2729-65-46 10:02:005.9MH [facility] FmmrdfxENHFIYANZI2816-26-75 10:02:000.6MH [facility] HeightsHEMATOLOGY 2015-10-21 10:02:0016.5MH [facility] RdxcvzsTJNNJGQWMF8373-17-95 10:02:0011.0MH [facility] CtwvgeuGHNSZFDWHV8280-81-98 10:02:0066.0MH [facility] HeightsHEMATOLOGY 2015-10-21 10:02:000.1MH [facility] DdrijzgSNGRBJWEIL2938-22-40 10:02:000.7MH [facility] AzgnzcuLPZGAR0364-28-43 10:02:002.11MH [facility] CygdbxzMFEGCP0280-78-91 10:02:0052MH [facility] QjtukojFBRPUU1937-73-35 10:02:0039MH [facility] HeightsLIPIDS 2015-10-21 10:02:80347JV [facility] FqknxogIPELXJ2624-47-44 10:02:0054MH [facility] NikhtnuGUKGBI0408-04-52 10:02:008MH [facility] HeightsCARDIAC QUDZAFK1342-48-85 06:23:0010.2MH [facility] HeightsDRUG XBEGBX7331-14-36 06:23:00Negative *NA*(10/21/15 1:23 AM)[facility] HeightsDRUG QJOVCA9528-95-02 06:23:00See Note (10/21/15 1:23 AM)[facility] HeightsDRUG KFKJZQ8961-22-12 06:23:00Negative *NA*(10/21/15 1:23 AM)[facility] HeightsDRUG TJNVGB0447-03-21 06:23:00Negative *NA*(10/21/15 1:23 AM)[facility] HeightsDRUG JYNQNV0587-63-66 06:23:00Positive *ABN*(10/21/15 1:23 AM)[facility] HeightsDRUG XDFXNQ9365-55-27 06:23:00Negative *NA*(10/21/15 1:23 AM) [facility] HeightsDRUG UUNHSP0304-42-03 06:23:00Negative *NA*(10/21/15 1:23 AM)[facility] HeightsDRUG USDXED5492-29-53 06:23:00Positive *ABN*(10/21/15 1:23 AM)[facility] HeightsCARDIAC NHCISFL0326-41-48 23:55:008.3MH [facility] HeightsCARDIAC FDXUQWY0686-80-09 23:55:019326GN [facility] HeightsCHEM ELAXO9028-01-65 23:55:000.6MH [facility] HeightsCHEM CDIPO1313-08-62 23:55:0021MH [facility] HeightsCHEM NKOME0142-69-87 23:55:000.5MH [facility] HeightsCHEM PANEL 2015-10-20 23:55:0029MH [facility] HeightsCHEM BJICG1913-47-30 23:55:42111EX [facility] HeightsCHEM KOROS6940-67-86 23:55:0036MH [facility] HeightsCHEM PANEL 2015-10-20 23:55:005.5MH [facility] HeightsCHEM ZKUKK8182-85-34 23:55:008.0MH [facility] HeightsCHEM ZFBTH4147-44-83 23:55:002.5MH [facility] HeightsHEMATOLOGY 2015-10-20 23:55:000.4MH [facility] UdmjxaxLUEDOQFJRQ4944-45-76 23:55:000.9MH [facility] LplnteqWGXZXCFRGU0186-95-67 23:55:001.7MH [facility] HeightsHEMATOLOGY 2015-10-20 23:55:008.0MH [facility] IvanfcnZHUNZQVHRI2839-99-40 23:55:000.8MH [facility] HggjtedNMVHVQOWIH1457-76-94 23:55:000.1MH [facility] HeightsHEMATOLOGY 2015-10-20 23:55:0015.4MH [facility] CysscpyRDCTVRGFSQ0456-91-04 23:55:0071.5MH [facility] QkyhgteVDQRGGDTYH4073-33-28 23:55:003.9MH [facility] HeightsHEMATOLOGY 2015-10-20 23:55:008.4MH [facility] ZviledmUDFAEOWWBE9094-18-44 23:55:00* Test Item Value Reference Range Interpretation Comments PTT (test code = PTT) 32.9 s 22.9-35.8 MH [facility] IsjnzcrMMCKLSODLC2800-46-11 23:55:00* Test Item Value Reference Range Interpretation Comments PT (test code = PT) 16.6 s 12.0-14.7 MH [facility] MhkiqkrWXTQOKOBXN5725-25-30 23:55:001.31MH [facility] HeightsHEMATOLOGY 2015-10-20 23:55:0011.2MH [facility] KrbtmseSRRJAERNEH9768-33-62 23:55:0030.8MH [facility] CspgvuxONTICZXDGG0322-90-70 23:55:009.6MH [facility] HeightsHEMATOLOGY 2015-10-20 23:55:003.67MH [facility] EcftwyzPPEJKTINJM5041-91-36 23:55:0083.9MH [facility] HruuogbSZASSZBTVD4009-22-16 23:55:00* Test Item Value Reference Range Interpretation Comments MCH (test code = MCH) 26.1 pg 27.0-31.0 MH [facility] OiuggxlOMNCXCCCXZ1123-85-46 23:55:04804JLNortheast Baptist HospitalHEMATOLOGY 2015-10-20 23:55:0031.1MGr[facility] HospitalXptbqjmNYNULQYMLV4940-85-04 23:55:0017.6MGr[facility] HospitalAepduivBBZSUWQXHB0607-40-93 23:55:008.9[facility] HospitalCHE[facility] 2015-05-20 11:09:0039[facility]ufkinCHEM IJRAB4930-83-29 11:09:04440GZSt[address] [facility] LufkinCHEM QTJLB3276-14-42 11:09:004.8[facility] LufkinCHEM DELFN2414-00-34 11:09:002.10[facility] LufkinCHEM XWLTX3744-03-90 11:09:[address] [facility] LufkinCHEM IRHNH7606-18-06 11:09:008.[address] [place], [place] [address]CHEM BBIDD9761-67-74 11:09:0029[facility] LufkinCHEM CRFZV5769-02-51 11:09:0047[facility] LufkinCHEM CCXXE1210-93-05 11:09:12749LYSt. Luke's Health – Memorial LufkinCHEM DGZRV0143-74-34 11:09:007.8[facility]ufkinCHEM PANEL 2015-05-20 11:09:004.5[facility] LufkinCHEM GKZKH2297-93-73 11:09:[address] [place], [place] [address]UgmwrnRKALUPFOUH6813-25-22 11:09:[address] [place] [address] EIOVEINFXA5378-09-73 11:09:002.0[facility] LufkinHukthlPVYSDGNRGT8313-19-59 11:09:[address] [place], [place] [address]CgsbbrARIDZQAUYB6723-34-35 11:09:[address] [place], [place] [address]MmqxknCAHCRHNHMU9404-40-50 11:09:[address]58.[address] [place], [place] [address]HEMATOLOGY 2015-05-20 11:09:[address] [place], [place] [address]GpmjkqCYFLNNQISA5475-25-99 11:09:[address] [place], [place] [address]QkguzuCXMCAESGVB2664-67-86 11:09:[address] [place] [address] UPNPYZGKFA1057-76-40 11:09:[address] [place], [place] [address]XdbmsiMDEADNXMHS9467-62-19 11:09:[address] [place], [place] [address]HypcioWFSLMRAJMC2684-17-44 11:09:008.0[facility] LufkinHvgqzqSMFIBDVPHL4299-97-41 11:09:73572ZRSt. Luke[facility] Health – Memorial LufkinHEMATOLOGY 2015-05-20 11:09:0010.7[facility] LufkinXqhoomRWADGXEZMH7673-30-89 11:09:[address]8 [facility] LufkinTpsxqpRPHRFYMJZH3098-90-76 11:09:0086.9[facility] AIMEZYYVKL1229-82-18 11:09:00* Test Item Value Reference Range Interpretation Comments MCH (test code = MCH) 28.2 pg 27.0-31.0 [facility] LufkinXkbtthFUMATCODQB8053-92-56 11:09:0032.5[facility] LQXJKLQRUR8171-22-39 11:09:003.00[facility] LufkinEmkyvzBFRJCVBRYZ9248-00-08 11:09:008.5[facility] LufkinFwdvxsTCSDFBMOXC1586-05-56 11:09:[address] [place], [place] [address]CHEM RQFXZ5465-61-92 08:30:004.0[facility]ufkinCHEM PANEL 2015-05-19 08:30:002.0[facility] LufkinPxzrgtUMYGEOCIIXVS3859-45-00 08:30:0028[facility] LufkinZnxvwhMXFKJPSUXHRI1151-09-94 08:30:007.8[facility] GDLRENSZNEYF6790-02-21 08:30:0036[facility] LufkinAtzqojTCVQPYZTNNMK5122-83-00 08:30:21055LWSt. Luke[facility] Health – Memorial LufkinIewmzuWDLZJDFJJNYV2751-22-90 08:30:[address] [place], [place] [address]FpkyjdHGGRMCFICBEM3567-91-16 08:30:26392EOSt. [facility] PUEQWNILIWCA8075-65-29 08:30:37168SMSt. Luke[facility] Health – Memorial LufkinBcrwdkQSCFKBNMYTVO0340-06-46 08:30:002.29[facility] LufkinPkvupkOIXSSBYROJUB1653-26-71 08:30:0046[facility] LufkinObklrgUKTVNCXKZTDV1645-92-01 08:30:[address] [place] [address] ANFAQTWWJB0518-38-54 08:30:009.9[facility] LufkinWedwphHCTKDLORRV2571-25-81 08:30:0016.0[facility] LufkinBqkuixJRVTVTMVRU5776-11-84 08:30:[address] [place], [place] [address]DcljkpKPTRTWDUTA4870-43-85 08:30:001.5[facility]ufkinHEMATOLOGY 2015-05-19 08:30:000.1MB[facility] – TaylorShwfleCWXMVQDAMC5898-77-21 08:30:001.1MBaylor [facility] – TaylorLzywvzIWMOXIFQUI7520-87-98 08:30:001.8[facility] VCIMNSMHOK0525-77-13 08:30:001.1MB[facility] – TaylorHypekpRGVTKEKMFW8972-09-03 08:30:006.9[facility] LufkinYnszweKYLYMDZRPY8235-29-12 08:30:0012.8[facility] LufkinLqqspcVUUXVQZSJW4758-83-78 08:30:0032.6MB[facility] – TaylorHEMATOLOGY 2015-05-19 08:30:0014.4[facility] LufkinYjsdapLDUSAGYNTL7411-34-61 08:30:16649SFSt. Luke's Health – Memorial LufkinBhaescTCOTKGOOGI4564-06-03 08:30:00* Test Item Value Reference Range Interpretation Comments MCH (test code = MCH) 28.3 pg 27.0-31.0 [facility] LufkinNxrxeqQMCWVQDZDY7649-30-34 08:30:008.2MB[facility] KQMRUXSPLA3193-96-29 08:30:0011.4[facility] LufkinZqhiilSGZDGPTTML9560-80-55 08:30:002.84[facility] LufkinXxfzmvNGVOUDTEWH2056-99-84 08:30:0087.0[facility] LufkinXcbkjlHGUBFSAVBG2538-29-55 08:30:008.0[facility]ufkinHEMATOLOGY 2015-05-19 08:30:0024.7[facility] LufkinCHEM JQVKG9630-43-04 08:14:002.1MBaylor [facility] – TaylorCHEM LRKXM0970-71-35 08:14:004.4[facility] UYNKHFWYZDAN0788-63-75 08:14:0010.8[facility] LufkinIlgrrrIEWONEWNLDIT5549-03-93 08:14:0036[facility] LufkinMsyzgtJWRPOLAUBPWH6630-97-70 08:14:19892YYSt. [facility] Health – Memorial LufkinBnzeoaFTDKHJLBSANX9066-73-19 08:14:62182MUSt. [facility] RSLMBCMWCGFO6175-88-34 08:14:002.29[facility] LufkinQkroekTAACGUKDXZTQ5303-51-64 08:14:004.8[facility] LufkinGkopxoIQKJPKBKODNK2052-29-53 08:14:0045St[facility] LufkinIukxpiOJUBWSAZRUXR8841-47-03 08:14:38234DTSt. Luke's Health – [facility] XMIRNCECNPWV1695-02-05 08:14:008.3MBaylor [facility] Center – TaylorHpklztHDHTRNDEUVPR5061-49-31 08:14:0029[facility] LufkinSkvbezUUXLCWQTNI6173-09-51 08:14:0011.2MBaylor [facility] – TaylorKensgfKVIAVLJMYR1189-97-54 08:14:002.68[facility]ufkinHEMATOLOGY 2015-05-18 08:14:0014.4[facility] LufkinOhxihdEKZKPFIKZM7541-93-42 08:14:46863UESt. Luke's Health – Memorial LufkinQfktqvFJAHTIRQVJ3156-24-97 08:14:007[address] [place] [address] OKTXLZBAQJ0282-24-80 08:14:007.[address] [place], [place] [address]GiypczJNISCUJRDT1797-01-34 08:14:[address] [place], [place] [address]GqegqlJCPZPDAYJW7257-75-78 08:14:[address] [place], [place] [address]NoscgwGLQACYTDKM8073-39-55 08:14:00* Test Item Value Reference Range Interpretation Comments MCH (test code = MCH) 28.7 pg 27.0-31.0 [facility] LufkinMwtgjpYWIFIGEMCV0451-14-86 08:14:[address] [place] [address] WBIAKBGDWA1627-28-32 08:14:[address] [place], [place] [address]KeismyDBWPZSJIVW0226-53-40 08:14:[address] [place], [place] [address]SecufmWOFLPIPDUL6450-30-03 08:14:[address] [place], [place] [address]ZopaokCUCUFYGWGN7096-39-48 08:14:000.8[facility]kinHEMATOLOGY 2015-05-18 08:14:001.[address] [place], [place] [address]VzbzxwAXUXTNFPEH6838-47-27 08:14:[address] [place], [place] [address]NxrmxfXCTYMXARVK1995-99-43 08:14:[address] [place] [address] WGPMZWQNWD4141-81-00 08:14:[address] [place], [place] [address]HxzwciLVKWEDZUJX5067-22-27 08:14:[address] [place], [place] [address]LlwibeGBGFHZXKBK7870-90-48 08:14:[address]61.[address] [place], [place] [address]CHEM AQWRL0602-75-69 07:11:000.[address] [place], [place] [address]CARDIAC VHDDNRK3532-43-23 14:28:00<0.02[facility] LufkinCHEM YTFSR9197-17-58 08:35:000.26[facility] LufkinMOLECULAR MQWGGWKMIB9172-12-90 08:35:005.7[facility] LufkinMOLECULAR NRGGXOSMPR9267-53-33 08:35:82420949VXGrace Medical CenterPECIAL WDAKZGYTY7465-73-59 08:35:006.3MBaylor [facility] – TaylorDRUG IUYITX8556-41-30 06:24:00See Note (05/14/15 12:24 AM)[facility]kinDRUG POLYKU3432-86-25 06:24:00Negative *NA*(05/14/15 12:24 AM)[facility] DRUG OKZXJN8467-78-30 06:24:00Positive *ABN*(05/14/15 12:24 AM)[facility]kinDR[facility] QWNKGP2557-20-77 06:24:00Negative *NA*(05/14/15 12:24 AM)[facility]kinDR[facility] QPQLTY3226-09-22 06:24:00Negative *NA*(05/14/15 12:24 AM)[facility]kinDR[facility] TCUGDF7576-96-78 06:24:00Negative *NA*(05/14/15 12:24 AM)[facility]kinDR[facility] RLBIYP3693-56-46 06:24:00Negative *NA*(05/14/15 12:24 AM)[facility]kinDRUG AYUAXT4595-48-01 06:24:00Negative *NA*(05/14/15 12:24 AM)[facility]kinURINE AND MZFCH3471-80-07 06:24:00 * Test Item Value Reference Range Interpretation Comments UA Spec Grav (test code = UA Spec Grav) 1.[address] [facility] LufkinURINE AND MXYKN3393-17-87 06:24:00Clear (05/14/15 12:24 AM)[facility]kinUR[facility] AND NHDVN2604-42-03 06:24:00Small *ABN*(05/14/15 12:24 AM)[facility]kinUR[facility] AND NOATY1689-16-00 06:24:00Negative *NA*(05/14/15 12:24 AM)[facility]kinUR[facility] AND BTOMV4424-12-32 06:24:00 Negative *NA*(05/14/15 12:24 AM)[facility]kinUR[facility] AND NPEDW8564-87-85 06:24:00Negative (05/14/15 12:24 AM)[facility]kinUR[facility] AND STOOL 2015-05-14 06:24:00Negative (05/14/15 12:24 AM)[facility]kinUR[facility] AND EYYLS7096-31-18 06:24:000.[address] [place], [place] [address]URINE AND ZCUSL9642-08-80 06:24:00* Test Item Value Reference Range Interpretation Comments UA pH (test code = UA pH) 7.5 1 5.0-8.0 [facility]kinURINE AND KBVRX3717-66-69 06:24:00Negative (05/14/15 12:24 AM)[facility]kinUR[facility] AND HBEQT6685-05-61 06:24:00Yellow *NA*(05/14/15 12:24 AM)[facility] LufkinQbdgerOIQWUCZDXH5048-08-44 06:13:00* Test Item Value Reference Range Interpretation Comments PTT (test code = PTT) 32.6 s 22.9-35.8 [facility] LufkinYzgfhdKKQUSNNGTT5376-38-12 06:13:001.08[facility] ZAYTBOWFJB8268-84-79 06:13:00* Test Item Value Reference Range Interpretation Comments PT (test code = PT) 14.3 s 12.0-14.7 [facility] LufkinCARDIAC EJTSHHA5320-22-46 04:31:000.02[facility] LufkinCHEM EVQBA0967-48-95 04:31:0063[facility] LufkinCHEM BOHAU2171-77-53 04:31:005.3MB[facility] – TaylorCHEM UABNT0485-37-63 04:31:000.4[facility] LufkinCHEM SWZNP4096-36-63 04:31:000.[address] [place], [place] [address]CHEM PANEL 2015-05-14 04:31:002.3MB[facility] – TaylorCHEM [id number] 04:31:007.6MB[facility] TaylorCHEM [id number] 04:31:000.[address] [place], [place] [address]CHEM [id number] 04:31:0035[facility] [place]ufkinCHEM [id number] 04:31:00 0.4[facility]CHE[facility] [id number] 04:31:00367EESt. [facility] LufkinCHEM [id number] 04:31:0044[facility] LufkinCHEM [id number] 04:31:001.[address] [place], [place] [address]CARDIAC [id number] 04:10:71135ESSt. [facility] [place]
--- NOTE | 2019-08-30 14:34 | Diagnostic Imaging Report ---
EXAMINATION: COCCYX, HIP LEFT 2-3 VW (+/- PELVIS) INDICATION: Hip pain COMPARISON: None FINDINGS: No acute fracture or dislocation. Alignment is anatomic. Nonobstructive bowel gas pattern. Phleboliths in the pelvis. Diffuse atherosclerotic arterial calcifications. IMPRESSION: No acute osseous injury. Signed by: Timo Hurd MD on 08/30/2019 2:30 PM
[2019-08-30] MEDS ORDERED: KETOROLAC TROMETHAMINE 30 MG/ML VIAL IV STA (15:48)
--- NOTE | 2019-08-30 16:49 | Emergency Department Note ---
History of Present Illnes History of Present Illness Chief Complaint: Extremity Trauma/Pain History of Present Illness This is a 58 year old male LAST NIGHT BEGAN HAVING LEFT HIP PAIN AND COCCYX PAIN, NO TRAUMA. 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 Any updates have been documented here. Past Medical History Recent Fever: No Clinical Suspicion of Infectio: No New/Unexplained Change in Ment: No Past Medical History: Hypertension, Diabetes, [place], Hemodyalisis Other Medical History: DEPRESSION Other Surgery: BACK SURGERY Social History Smoking Cessation: Current some day smoker Counseling Performed: Yes Alcohol Use: None Any Illegal Drug Use: No TB Exposure/Symptoms: No Physically hurt or threatened: No Other Last Tetanus: UNK Any Pre-Existing Lines (PICC,: Yes (L/AV FISTULA) Is patient up to date on immun: Yes Last Flu: UTD Last Pneumovax: UTD Review of Systems Review of Systems Constitutional: no symptoms EENTM: no symptoms Cardiovascular: no symptoms Respiratory: no symptoms Gastrointestinal: no symptoms Genitourinary: no symptoms Musculoskeletal: joint pain Neurological: no symptoms Psychological: no symptoms Endocrine: no symptoms Hematological/Lymphatic: no symptoms Review of other systems All other systems reviewed and negative. Physical Exam Related Data Allergies: Coded Allergies: acetaminophen (Verified Allergy, Unknown, 05/16/18) aspirin (Verified Allergy, Unknown, 05/16/18) Triage Vital Signs Vital Signs Date Time Temp Pulse Resp B/P (MAP) Pulse Ox O2 Delivery O2 Flow Rate FiO2 08/30/19 12:08 98.7 74 18 98/66 100 Physical Exam CONSTITUTIONAL Constitutional: well-developed, well-nourished HENT HENT: normocephalic, atraumatic, oropharynx clear/moist, nose normal HENT L/R: left ext ear normal, right ext ear normal EYES Eyes: PERRL, conjunctivae normal NECK Neck: ROM normal PULMONARY Pulmonary: effort normal, breath sounds normal CARDIOVASCULAR Cardiovascular: regular rhythm, heart sounds normal, capillary refill normal, normal rate, murmur (2/6 SYS MURMUR, NO S3) GASTROINTESTINAL Abdominal: soft, nontender, bowel sounds normal GENITOURINARY Genitourinary: exam deferred SKIN Skin: warm, dry MUSCULOSKELETAL Musculoskeletal: ROM normal, other (MILD TENDERNESS TO COCCYX, AND LEFT HIP) NEUROLOGICAL Neurological: alert, oriented x 3, no gross motor or sensory deficits PSYCHOLOGICAL Psychological: mood/affect normal, judgement normal Results Imaging Imaging results reviewed: Yes Impressions EXAMINATION: COCCYX, HIP LEFT 2-3 VW (+/- PELVIS) INDICATION: Hip pain COMPARISON: None FINDINGS: No acute fracture or dislocation. Alignment is anatomic. Nonobstructive bowel gas pattern. Phleboliths in the pelvis. Diffuse atherosclerotic arterial calcifications. IMPRESSION: No acute osseous injury. Signed by: Timo Hurd MD on 08/30/2019 2:30 PM Critical Care Time Subsequent provider I assumed direction of critical care for this patient from another provider of my specialty. Assessment & Plan Assessment & Plan Final Impression: (1) PAIN IN LEFT HIP Assessment & Plan DC HOME Depart Disposition: HOME, SELF-CARE Last Vital Signs Date Time Temp Pulse Resp B/P (MAP) Pulse Ox O2 Delivery O2 Flow Rate FiO2 08/30/19 15:15 68 18 103/57 100 08/30/19 12:08 98.7 Home Meds Reported Medications Quetiapine Fumarate (SEROQUEL) 25 Mg Tablet, 25 MG PO BID PRN for agitation, #60 TAB 05/17/18 Loperamide Hcl* (IMODIUM*) 2 Mg Cap, 2 MG PO PRN for diarrhea, CAP 05/17/18 Ibuprofen (MOTRIN) 200 Mg Tab, 200 MG PO Q4HR PRN for PAIN, TAB 05/17/18 Famotidine (PEPCID) 20 Mg Tablet, 20 MG PO BID, #60 TAB 05/17/18 Acetaminophen (ACETAMINOPHEN) 325 Mg Tablet, 650 MG PO Q6H PRN for PAIN for 5 Days, TAB 05/17/18 Trazodone Hcl (TRAZODONE HCL) 100 Mg Tablet, 100 MG PO HS 05/17/18 Lactulose (LACTULOSE) 20 Gm/30 Ml Solution, 15 ML PO qhs, EACH 05/17/18 Sertraline Hcl (ZOLOFT) 100 Mg Tablet, 100 MG PO DAILY 05/17/18 Sevelamer Carbonate (RENVELA) 0.8 Gm Powd.pack, 800 MG PO TID 05/17/18 Pantoprazole Sodium* (PROTONIX) 40 Mg Tablet.dr, 40 MG PO DAILY, TAB 05/17/18 Misoprostol (CYTOTEC) 100 Mcg Tablet, 200 MCG PO BID 05/17/18 Pregabalin (LYRICA) 25 Mg Cap, 25 MG PO DAILY, #30 CAP 05/17/18 Lisinopril (LISINOPRIL) 10 Mg Tablet, 20 MG PO DAILY, #30 TAB 05/17/18 Insulin Detemir (LEVEMIR) 100 Unit/1 Ml Vial, 20 UNITS SC QAM 05/17/18 Isosorbide Mononitrate (ISOSORBIDE MONONITRATE ER) 120 Mg Tab.er.24h, 120 MG PO DAILY 05/17/18 Carvedilol (COREG) 3.125 Mg Tab, 1 TAB PO Q12H 05/17/18 Amlodipine Besylate (AMLODIPINE BESYLATE) 10 Mg Tablet, 10 MG PO DAILY, #30 TAB 05/17/18 Hydralazine Hcl (HYDRALAZINE HCL) 25 Mg Tab, 25 MG PO TID, TAB 05/17/18 Medications in the ED Ketorolac Tromethamine 30 mg ONCE STAT IV ; Start 08/30/19 at 15:48; Stop 08/30/19 at 15:59; Status DC GRUPO NESBITT MD Aug 30, 2019 16:49
--- NOTE | 2019-08-30 17:23 | NUR ---
[facility] CALLED FOR [facility]
== END 2019-08-30 19:29 | disposition home or self-care (01) ==
LOC: ER 11:51
DX: M25.552 Pain in left hip (principal); M21.70 Unequal limb length (acquired), unspecified site; Z99.2 Dependence on renal dialysis; E11.9 Type 2 diabetes mellitus without complications; I10 Essential (primary) hypertension; Z79.4 Long term (current) use of insulin; F17.210 Nicotine dependence, cigarettes, uncomplicated
CPT/HCPCS: 36415; 72220; 73502; 82948; 99284; J1885

== ENCOUNTER → 2019-10-23 | Emergency (ER) | payer OTHER ==
[~2019-10-23] VITALS: Ht 162.6 cm; Wt 57.2 kg
[~2019-10-23] MED LIST changes: +SODIUM CHLORIDE 0.9% 1000ML 1,000 ML IV SCH; +SODIUM CHLORIDE 0.9% 250ML 250 ML IV ONE; +SODIUM CHLORIDE 0.9% 250ML 250 ML ONE
[2019-10-23 13:45] LABS: BASOPHILS % 0.3 % (0.0-1.0); EOSINOPHILS % 0.2 % (0.0-6.0); HEMATOCRIT 30.7 % (38.2-49.6); HEMOGLOBIN 9.1 g/dL (14.0-18.0); LYMPHOCYTES # (AUTO) 1.1 (1.0-3.2); LYMPHOCYTES % 10.1 % (18.0-39.1); MEAN CORPUSCULAR HEMOGLOBIN 28.9 pg (28-32); MEAN CORPUSCULAR HGB CONC 29.6 g/dL (31-35); MEAN CORPUSCULAR VOLUME 97.5 fL (81-99); MONOCYTES # (AUTO) 0.6 (0.2-0.8); MONOCYTES % 5.1 % (4.4-11.3); NEUTROPHILS # (AUTO) 9.3 (2.1-6.9); NEUTROPHILS % 83.9 % (38.7-80.0); PLATELET COUNT 167 x10e3/uL (140-360); RED BLOOD COUNT 3.15 x10e6/uL (4.3-5.7); RED CELL DISTRIBUTION WIDTH 15.9 % (11.7-14.4)
--- NOTE | 2019-10-23 13:46 | Diagnostic Imaging Report ---
EXAMINATION: CHEST SINGLE (PORTABLE) INDICATION: Hypotension COMPARISON: Chest CT 05/17/2018, chest radiograph 05/18/2018 FINDINGS: LINES/TUBES:EKG leads overlie the chest. LUNGS:The lungs are moderately inflated. There is perihilar fullness and indistinctness of the pulmonary vasculature. Left greater than right basilar patchy opacities. More focal left lower lobe opacity may represent an underlying pulmonary nodule. PLEURA:Trace bilateral pleural effusions. No pneumothorax. MEDIASTINUM:Unchanged cardiomegaly. BONES/SOFT TISSUES:No acute osseous injury. ABDOMEN:No free air under the diaphragm. IMPRESSION: Central pulmonary vascular congestion, cardiomegaly, and small bilateral pleural effusions. Mild bibasilar patchy opacities may represent subsegmental atelectasis. A more focal left lower lung opacity could represent an underlying pulmonary nodule. Chest CT on a nonurgent basis can be considered for further evaluation. Signed by: Timo Hurd MD on 10/23/2019 1:43 PM
[2019-10-23 14:15] LABS: ALBUMIN 3.1 g/dL (3.5-5.0); ALBUMIN/GLOBULIN RATIO 0.8 (0.8-2.0); ANION GAP 16.8 mmol/L (8-16); CALCIUM 7.8 mg/dL (8.4-10.2); CREATININE, SERUM 6.45 mg/dL (0.72-1.25); POTASSIUM 3.8 mmol/L (3.5-5.1)
[2019-10-23 14:23] LABS: CREATINE KINASE MB 5.7 ng/mL (0-5.0)
--- NOTE | 2019-10-23 15:32 | Emergency Department Note ---
History of Present Illnes History of Present Illness Chief Complaint: General Medicine Complaints History of Present Illness This is a 58 year old male Chief Complaint Comment PT WAS HYPOTENSIVE PRIOR TO STARTING DIALYSIS AT 78'S SYSTOLIC AND DID 90 MINS OF DIALYSIS AND THEN STOPPED WHEN PT REQUESTED OXYGEN. PT AMS PER CLINIC, EMS FOUND PT TO BE AAOX4. M/W/F. COMPLIANT. . 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: Dynamite Shooter/EMS Arrival Mode: [facility] Treatment MEATMAN: See EMS Report Additional Treatment MEATMAN: FROM [facility] Onset (how long ago): day(s) (1) Location: WEAK ALL OVER Quality: WEAK Radiation: Denies non-radiation, Denies back, Denies neck, Denies extremity, Denies abdomen, Denies periumbilical, Denies flank, Denies proximal, Denies d istal, Denies other Severity: mild Onset quality: gradual Duration (how long): day(s) (1) Timing of current episode: intermittent Progression: waxing and waning Chronicity: new Context: Denies recent illness, Denies recent surgery, Denies recent immobilization, Denies recent travel, Denies trauma/injury, Denies new medications, Denies hx of DVT/PE, Denies non-compliance w/ medications, Denies other Relieving factors: none Exacerbating factors: none Associated symptoms: Reports denies other symptoms, Reports weakness; Denies confusion, Denies chest pain, Denies cough, Denies diaphoresis, Denies fever/chills, Denies headaches, Denies loss of appetite, Denies malaise, Denies nausea/vomiting, Denies rash, Denies seizure, Denies shortness of breath, Denies syncope, Denies other Treatments prior to arrival: none Past Medical/Family History Physician Review I have reviewed the patient's past medical and family history. Any updates have been documented here. Past Medical History Recent Fever: No Clinical Suspicion of Infectio: No New/Unexplained Change in Ment: No Past Medical History: Hypertension, Diabetes, [place], Hemodyalisis Other Medical History: DEPRESSION Other Surgery: BACK SURGERY Social History Smoking Cessation: Former smoker Counseling Performed: Yes Alcohol Use: None Any Illegal Drug Use: No Other Last Tetanus: UNK Any Pre-Existing Lines (PICC,: No Review of Systems Review of Systems Constitutional: Reports no symptoms EENTM: Reports no symptoms Cardiovascular: Reports no symptoms Respiratory: Reports no symptoms Gastrointestinal: Reports no symptoms Genitourinary: Reports no symptoms Musculoskeletal: Reports no symptoms Integumentary: Reports no symptoms Neurological: Reports as per HPI Psychological: Reports no symptoms Endocrine: Reports no symptoms Hematological/Lymphatic: Reports no symptoms Physical Exam Related Data Allergies: Coded Allergies: acetaminophen (Verified Allergy, Unknown, 05/16/18) aspirin (Verified Allergy, Unknown, 05/16/18) Triage Vital Signs Vital Signs Date Time Temp Pulse Resp B/P (MAP) Pulse Ox O2 Delivery O2 Flow Rate FiO2 10/23/19 12:46 98.2 66 18 96/57 99 10/23/19 13:09 Nasal Cannula 4.0 Vital signs reviewed: Yes Physical Exam CONSTITUTIONAL Constitutional: Present well-developed, Present well-nourished HENT HENT: Present normocephalic, Present atraumatic, Present oropharynx clear/moist, Present nose normal HENT L/R: Present left ext ear normal, Present right ext ear normal EYES Eyes: Reports PERRL, Reports conjunctivae normal NECK Neck: Present ROM normal PULMONARY Pulmonary: Present effort normal, Present breath sounds normal CARDIOVASCULAR Cardiovascular: Present regular rhythm, Present heart sounds normal, Present capillary refill normal, Present normal rate GASTROINTESTINAL Abdominal: Present soft, Present nontender, Present bowel sounds normal GENITOURINARY Genitourinary: Present exam deferred SKIN Skin: Present warm, Present dry MUSCULOSKELETAL Musculoskeletal: Present ROM normal NEUROLOGICAL Neurological: Present alert, Present oriented x 3, Present no gross motor or sensory deficits PSYCHOLOGICAL Psychological: Present mood/affect normal, Present judgement normal Results Laboratory Result Diagram: 10/23/19 1330 10/23/19 1330 Laboratory Laboratory Tests Test 10/23/19 13:30 White Blood Count 11.04 x10e3/uL (4.8-10.8) Red Blood Count 3.15 x10e6/uL (4.3-5.7) Hemoglobin 9.1 g/dL (14.0-18.0) Hematocrit 30.7 % (38.2-49.6) Mean Corpuscular Volume 97.5 fL (81-99) Mean Corpuscular Hemoglobin 28.9 pg (28-32) Mean Corpuscular Hemoglobin Concent 29.6 g/dL (31-35) Red Cell Distribution Width 15.9 % (11.7-14.4) Platelet Count 167 x10e3/uL (140-360) Neutrophils (%) (Auto) 83.9 % (38.7-80.0) Lymphocytes (%) (Auto) 10.1 % (18.0-39.1) Monocytes (%) (Auto) 5.1 % (4.4-11.3) Eosinophils (%) (Auto) 0.2 % (0.0-6.0) Basophils (%) (Auto) 0.3 % (0.0-1.0) Neutrophils # (Auto) 9.3 (2.1-6.9) Lymphocytes # (Auto) 1.1 (1.0-3.2) Monocytes # (Auto) 0.6 (0.2-0.8) Eosinophils # (Auto) 0.0 (0.0-0.4) Basophils # (Auto) 0.0 (0.0-0.1) Absolute Immature Granulocyte (auto 0.04 x10e3/uL (0-0.1) Sodium Level 140 mmol/L (136-145) Potassium Level 3.8 mmol/L (3.5-5.1) Chloride Level 100 mmol/L (98-107) Carbon Dioxide Level 27 mmol/L (22-29) Anion Gap 16.8 mmol/L (8-16) Blood Urea Nitrogen 45 mg/dL (7-26) Creatinine 6.45 mg/dL (0.72-1.25) Estimat Glomerular Filtration Rate 11 ML/MIN (60-) BUN/Creatinine Ratio 7 (6-25) Glucose Level 100 mg/dL (74-118) Calcium Level 7.8 mg/dL (8.4-10.2) Total Bilirubin 0.6 mg/dL (0.2-1.2) Aspartate Amino Transf (AST/SGOT) 24 IU/L (5-34) Alanine Aminotransferase (ALT/SGPT) 20 IU/L (0-55) Alkaline Phosphatase 50 IU/L (40-150) Creatine Kinase 42 IU/L (30-200) Creatine Kinase MB 5.70 ng/mL (0-5.0) Troponin I 0.006 ng/mL (0-0.300) Total Protein 7.0 g/dL (6.5-8.1) Albumin 3.1 g/dL (3.5-5.0) Globulin 3.9 g/dL (2.3-3.5) Albumin/Globulin Ratio 0.8 (0.8-2.0) Lab results reviewed: Yes Imaging Imaging results reviewed: Yes Procedures 12 Lead ECG Interpretation ECG Interpretation : ECG: ECG 1 Box Toe Cutter: Interpreted by ED physician Date: Oct 23, 2019 Time: 12:57 Rhythm: sinus rhythm Rate: normal BPM: 66 QRS axis: normal ST segments normal: Yes T wave inversion: V4, V5, V6 Clinical Impression: abnormal ECG Assessment & Plan Medical Decision Making MDM WEAKNESS Reassessment Reassessment BETTER SBP 122 Assessment & Plan Final Impression: (1) Wakefulness (2) Hypotension (3) CRF (chronic renal failure) Depart Disposition: HOME, SELF-CARE Last Vital Signs Date Time Temp Pulse Resp B/P (MAP) Pulse Ox O2 Delivery O2 Flow Rate FiO2 10/23/19 13:09 69 30 115/60 100 Nasal Cannula 4.0 10/23/19 12:46 98.2 Home Meds Reported Medications Quetiapine Fumarate (SEROQUEL) 25 Mg Tablet, 25 MG PO BID PRN for agitation, #60 TAB 05/17/18 Loperamide Hcl* (IMODIUM*) 2 Mg Cap, 2 MG PO PRN for diarrhea, CAP 05/17/18 Ibuprofen (MOTRIN) 200 Mg Tab, 200 MG PO Q4HR PRN for PAIN, TAB 05/17/18 Famotidine (PEPCID) 20 Mg Tablet, 20 MG PO BID, #60 TAB 05/17/18 Acetaminophen (ACETAMINOPHEN) 325 Mg Tablet, 650 MG PO Q6H PRN for PAIN for 5 Days, TAB 05/17/18 Trazodone Hcl (TRAZODONE HCL) 100 Mg Tablet, 100 MG PO HS 05/17/18 Lactulose (LACTULOSE) 20 Gm/30 Ml Solution, 15 ML PO qhs, EACH 05/17/18 Sertraline Hcl (ZOLOFT) 100 Mg Tablet, 100 MG PO DAILY 05/17/18 Sevelamer Carbonate (RENVELA) 0.8 Gm Powd.pack, 800 MG PO TID 05/17/18 Pantoprazole Sodium* (PROTONIX) 40 Mg Tablet.dr, 40 MG PO DAILY, TAB 05/17/18 Misoprostol (CYTOTEC) 100 Mcg Tablet, 200 MCG PO BID 05/17/18 Pregabalin (LYRICA) 25 Mg Cap, 25 MG PO DAILY, #30 CAP 05/17/18 Lisinopril (LISINOPRIL) 10 Mg Tablet, 20 MG PO DAILY, #30 TAB 05/17/18 Insulin Detemir (LEVEMIR) 100 Unit/1 Ml Vial, 20 UNITS SC QAM 05/17/18 Isosorbide Mononitrate (ISOSORBIDE MONONITRATE ER) 120 Mg Tab.er.24h, 120 MG PO DAILY 05/17/18 Carvedilol (COREG) 3.125 Mg Tab, 1 TAB PO Q12H 05/17/18 Amlodipine Besylate (AMLODIPINE BESYLATE) 10 Mg Tablet, 10 MG PO DAILY, #30 TAB 05/17/18 Hydralazine Hcl (HYDRALAZINE HCL) 25 Mg Tab, 25 MG PO TID, TAB 05/17/18 Medications in the ED Sodium Chloride 250 ml @ ud STK-MED ONCE .ROUTE ; Start 10/23/19 at 15:03; Stop 10/23/19 at 14:57; Status DC Sodium Chloride 250 ml @ 0 mls/hr ONCE ONCE IV ; Start 10/23/19 at 15:15; Stop 10/23/19 at 15:16; Status DC DANISH CRUZ MD Oct 23, 2019 15:31
[2019-10-23 19:11] VITALS: BP 113/66
== END | disposition home or self-care (01) ==
LOC: ER 12:47
DX: R53.1 Weakness (principal); I95.9 Hypotension, unspecified; I12.9 Hypertensive chronic kidney disease with stage 1 through stage 4 chronic kidney disease, or unspecified chronic kidney disease; E11.22 Type 2 diabetes mellitus with diabetic chronic kidney disease; N18.9 Chronic kidney disease, unspecified; Z99.2 Dependence on renal dialysis; F32.9 Major depressive disorder, single episode, unspecified; I25.2 Old myocardial infarction
CPT/HCPCS: 36415; 71045; 80053; 82550; 82553; 83880; 84484; 85025; 99284; 93005; J7050